=== PATIENT | female | born 1965 | race Caucasian/White ===

== ENCOUNTER 2019-12-05 16:33 | Inpatient (IN) | payer OTHER ==
[2019-12-05] MEDS ORDERED: Sodium Chloride 0.9% 10 ML Syringe FLUSH PRN (16:49)
[2019-12-05] MEDS ORDERED: Albuterol/Ipratropium 3.0-0.5 MG/3 ML Neb Soln NEB ONE ×2 (16:49→19:34)
[2019-12-05] MEDS ORDERED: predniSONE 20 MG Tab PO ONE (16:49)
[2019-12-05] MEDS ORDERED: Sodium Chloride 0.9% 2.5 ML Syringe FLUSH PRN (16:49)
[2019-12-05] MEDS ORDERED: Azithromycin 250 MG Tab PO ONE (16:49)
--- NOTE | 2019-12-05 17:17 | EDM.PDOC ---
ED HPI GENERAL MEDICAL PROBLEM - General Chief Complaint: Respiratory Problem Stated Complaint: TROUBLE BREATHING Time Seen by Provider: 12/05/19 16:49 Source of Information: Reports: Patient History Limitations: Reports: Respiratory Distress - History of Present Illness INITIAL COMMENTS - FREE TEXT/NARRATIVE: History of present illness: 54-year-old female presenting with difficulty breathing. She has been using her home O2 that she previously only needed 2 L at night, now she is using throughout the day. She reports that all started about 4 weeks ago went she was exposed to a decreasing chemical at work. She has a history of COPD and apparently at that time her COPD severely flared up to the point that she was admitted to the hospital. She was prescribed steroids for 5 days, however symptoms recurred when she went back to work and was exposed again. Therefore she was started on a longer course of steroids which she just completed yesterday, however she reports that again her breathing has now worsened. She has not yet been on antibiotics. She does report that 1 of her COPD medications was changed to an aerosol. She reports that she even brought her usual albuterol nebulizer to work but they refused to let her use it there. Has any chest pain. She does not have a portable oxygen machine and therefore she drove here without any oxygen, when she arrived at the front of the emergency department, she had a pulse ox in the 60s and appeared pale with cyanotic lips. Immediately back to the room and placed on oxygen and her oxygen did increase up into the 80s after being placed on a Ventimask. However she was able to speak very clearly and rapidly. Review of systems: As per history of present illness and below otherwise all systems reviewed and negative. Past medical history: As per history of present illness and as reviewed below otherwise noncontributory. COPD Surgical history: As per history of present illness and as reviewed below otherwise noncontributory. Social history: No reported history of drug or alcohol abuse. Daily smoker Family history: As per history of present illness and as reviewed below otherwise noncontributory. Physical exam: GEN: no acute distress, well appearing HEENT: Atraumatic, normocephalic, mucous membranes moist, Neck: supple, nontender, trachea midline. Lungs: Mild respiratory distress. Hypoxia, cyanotic lips, however still able to carry on a full conversation without mental status changes. Mild expiratory wheezes, decreased air movement Heart: Mildly tachycardic on arrival here, significantly improved after oxygen administration, now less than 100 Abdomen: Soft, nondistended, nontender. Back: nontender Extremities: Atraumatic. Neurovascularly intact. Neuro: Awake, alert, oriented. Neuro Exam nonfocal. Skin: warm, dry, pale cyanotic lips that resolved rapidly with oxygen administration Diagnostics: EKG performed today at 4:37 PM, sinus tachycardia, rate 104, PVCs, left atrial enlargement, right axis deviation, no STEMI. Therapeutics: [] MDM: Impression: [] Plan: [] Definitive disposition and diagnosis as appropriate pending reevaluation and review of above. Headache Pain Score (Numeric/FACES): 8 - Related Data Allergies Allergy/AdvReac Type Severity Reaction Status Date / Time acetaminophen [From Percocet] Allergy Cannot Verified 12/05/19 16:58 Remember cephalexin [From Keflex] Allergy Hives Verified 12/05/19 18:06 oxycodone [From Percocet] Allergy Cannot Verified 12/05/19 16:58 Remember Home Meds: Home Meds Albuterol [Ventolin HFA] 18 gm .XX DAILY 12/05/19 [History] Arformoterol [Brovana] 1 puff INH BID 12/05/19 [History] lisinopriL [Lisinopril] 10 mg PO DAILY 12/05/19 [History] Past Medical History HEENT 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: Other (See Below) Other HEENT History: sinus issues Cardiovascular 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: High Cholesterol, Hypertension Respiratory 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: Bronchitis, Recurrent Gastrointestinal 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: None Genitourinary 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: None [employer] 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: None Musculoskeletal 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: Back Pain, Chronic Neurological 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: None Psychiatric 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: None Endocrine/Metabolic 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: None Hematologic 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: None Immunologic 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: None Oncologic (Cancer) 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: None Dermatologic 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: None - Infectious Disease History Infectious Disease 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: Chicken Pox - Past Surgical History Female Surgical 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: Tubal Ligation Musculoskeletal Surgical 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: Other (See Below) Social & Family History - Family History Family Medical History: Noncontributory ED ROS GENERAL - Review of Systems Review Of Systems: See Below (see HPI) ED EXAM, GENERAL - Physical Exam Exam: See Below (See dictation) Course - Vital Signs Text/Narrative:: Recurrent dyspnea initially brought on by exposure to chemical. Hypoxic on arrival here. Failed outpatient therapy with nebulizers, steroids increased home O2 administration. Will add azithromycin and admit. Last Recorded V/S: Last Vital Signs Temp 98.4 F 12/05/19 16:54 Pulse 99 12/05/19 18:00 Resp 24 H 12/05/19 18:00 BP 143/82 H 12/05/19 18:00 Pulse Ox 91 L 12/05/19 18:00 - Orders/Labs/Meds Orders: Active Orders 24 hr Category Date Time Status Patient Status [ADT] Routine ADT 12/05/19 18:36 Active EKG 12 Lead [EKG Documentation Completion] [RC] STAT Care 12/05/19 17:28 Active CORONAVIRUS COVID-19 PCR PHL Stat Lab 12/05/19 16:49 Ordered Levofloxacin/Dextrose 5%-Water [Levaquin in D5W 750 MG/ Med 12/05/19 18:11 Active 150 ML] 750 mg Premix Bag 1 bag IV ONETIME Sodium Chloride 0.9% [Saline Flush] Med 12/05/19 16:49 Active 10 ml FLUSH ASDIRECTED PRN Sodium Chloride 0.9% [Saline Flush] Med 12/05/19 16:49 Active 2.5 ml FLUSH ASDIRECTED PRN Saline Lock Insert [OM.PC] Stat Oth 12/05/19 16:49 Ordered Medication Orders Levofloxacin/Dextrose 750 mg/ (Premix) 150 mls @ 100 mls/hr IV ONETIME ONE Stop: 12/05/19 19:40 Sodium Chloride (Saline Flush) 10 ml FLUSH ASDIRECTED PRN PRN Reason: Keep Vein Open Last Admin: 12/05/19 17:06 Dose: 10 ml Sodium Chloride (Saline Flush) 2.5 ml FLUSH ASDIRECTED PRN PRN Reason: Keep Vein Open Last Admin: 12/05/19 17:06 Dose: 2.5 ml Labs: Laboratory Tests 12/05/19 12/05/19 12/05/19 Range/Units 16:45 16:45 16:45 WBC 14.75 H (4.0-11.0) K/uL RBC 4.90 (4.30-5.90) M/uL Hgb 15.3 (12.0-16.0) g/dL Hct 50.2 H (36.0-46.0) % MCV 102.4 H (80.0-98.0) fL MCH 31.2 (27.0-32.0) pg MCHC 30.5 L (31.0-37.0) g/dL RDW Std Deviation 52.9 (28.0-62.0) fl RDW Coeff of Vera 14 (11.0-15.0) % Plt Count 214 (150-400) K/uL MPV 10.40 (7.40-12.00) fL Neut % (Auto) 84.5 H (48.0-80.0) % Lymph % (Auto) 7.4 L (16.0-40.0) % Rush % (Auto) 7.9 (0.0-15.0) % Eos % (Auto) 0.1 (0.0-7.0) % Baso % (Auto) 0.1 (0.0-1.5) % Neut # (Auto) 12.5 H (1.4-5.7) K/uL Lymph # (Auto) 1.1 (0.6-2.4) K/uL Rush # (Auto) 1.2 H (0.0-0.8) K/uL Eos # (Auto) 0.0 (0.0-0.7) K/uL Baso # (Auto) 0.0 (0.0-0.1) K/uL Nucleated RBC % 0.0 /100WBC Nucleated RBCs # 0 K/uL Sodium 138 (136-145) mmol/L Potassium 4.4 (3.5-5.1) mmol/L Chloride 96 L (98-107) mmol/L Carbon Dioxide 40.8 H (21.0-32.0) mmol/L BUN 8 (7.0-18.0) mg/dL Creatinine 0.5 L (0.6-1.0) mg/dL Est Cr Clr Drug Dosing 123.21 mL/min Estimated GFR (MDRD) > 60.0 ml/min Glucose 126 H (74-106) mg/dL Calcium 8.6 (8.5-10.1) mg/dL Total Bilirubin 0.7 (0.2-1.0) mg/dL AST 17 (15-37) IU/L ALT 33 (14-63) IU/L Alkaline Phosphatase 106 (46-116) U/L Troponin I < 0.050 (0.000-0.056) ng/mL B-Natriuretic Peptide 61 (<100) PG/ML Total Protein 6.6 (6.4-8.2) g/dL Albumin 3.2 L (3.4-5.0) g/dL Globulin 3.4 (2.6-4.0) g/dL Albumin/Globulin Ratio 0.9 (0.9-1.6) Meds: Medications Generic Name Dose Route Start Last Admin Trade Name Freq PRN Reason Stop Dose Admin Levofloxacin/Dextrose 750 mg/ 150 mls @ 100 mls/hr 12/05/19 18:11 Premix IV 12/05/19 19:40 ONETIME ONE Sodium Chloride 10 ml 12/05/19 16:49 12/05/19 17:06 Saline Flush FLUSH 10 ml ASDIRECTED PRN Administration Keep Vein Open Sodium Chloride 2.5 ml 12/05/19 16:49 12/05/19 17:06 Saline Flush FLUSH 2.5 ml ASDIRECTED PRN Administration Keep Vein Open Discontinued Medications Generic Name Dose Route Start Last Admin Trade Name Freq PRN Reason Stop Dose Admin Albuterol/Ipratropium 3 ml 12/05/19 16:49 12/05/19 16:59 Duoneb 3.0-0.5 Mg/3 Ml NEB 12/05/19 16:50 3 ml ONETIME ONE Administration Azithromycin 500 mg 12/05/19 16:49 12/05/19 17:00 Zithromax PO 12/05/19 16:50 500 mg ONETIME ONE Administration Ceftriaxone Sodium/Dextrose 2 50 mls @ 100 mls/hr 12/05/19 17:49 12/05/19 18: 07 gm/ Premix IV 12/05/19 18:18 Not Given ONETIME ONE Prednisone 50 mg 12/05/19 16:49 12/05/19 17:01 Prednisone PO 12/05/19 16:50 50 mg ONETIME ONE Administration - Re-Assessments/Exams Free Text/Narrative Re-Assessment/Exam: 12/05/19 18:09 The patient is feeling better. Her oxygen saturations are much improved. Discussed x-ray findings of pneumonia. Rocephin was ordered. I discussed this with the patient and when I asked her directly, she reported no medication or antibiotic allergies. However several minutes later when we were again discussing the antibiotic treatment for the pneumonia she then reported she had a Keflex allergy which was hives and therefore the Rocephin was canceled. She also reported at that time a Percocet allergy and another allergy that she could not recall. We will give Levaquin. 12/05/19 18:[address] Palafox for admission. She agrees. She requests to place the patient under inpatient admission under telemetry. 12/05/19 18:54 The patient stopped to me, requesting to eat something as she has not eaten all day. Diet will be attempted to be obtained from cafeteria Departure - Departure Time of Disposition: 18:35 Disposition: Admitted As Inpatient 68 Clinical Impression: COPD exacerbation, Hypoxia RLL pneumonia Qualifiers: Pneumonia type: due to unspecified organism Qualified Code(s): J18.9 - Pneumonia, unspecified organism - Discharge Information Referrals: Sanjuanita Vasquez DO [Primary Care Provider] - Forms: ED Department Discharge Sepsis Event Note (ED) - Evaluation Sepsis Screening Result: No Definite Risk - Focused Exam Vital Signs: Vital Signs Temp Pulse Resp BP Pulse Ox 12/05/19 18:00 99 24 H 143/82 H 91 L 12/05/19 16:54 98.4 F 103 H 26 H 169/150 H 59 L - My Orders Last 24 Hours: My Active Orders 12/05/19 16:49 CORONAVIRUS COVID-19 PCR PHL Stat Sodium Chloride 0.9% [Saline Flush] 10 ml FLUSH ASDIRECTED PRN Sodium Chloride 0.9% [Saline Flush] 2.5 ml FLUSH ASDIRECTED PRN Saline Lock Insert [OM.PC] Stat 12/05/19 17:28 EKG 12 Lead [EKG Documentation Completion] [RC] STAT 12/05/19 18:11 Levofloxacin/Dextrose 5%-Water [Levaquin in D5W 750 MG/150 ML] 750 mg Premix Bag 1 bag IV ONETIME 12/05/19 18:36 Patient Status [ADT] Routine - Assessment/Plan Last 24 Hours: My Active Orders 12/05/19 16:49 CORONAVIRUS COVID-19 PCR PHL Stat Sodium Chloride 0.9% [Saline Flush] 10 ml FLUSH ASDIRECTED PRN Sodium Chloride 0.9% [Saline Flush] 2.5 ml FLUSH ASDIRECTED PRN Saline Lock Insert [OM.PC] Stat 12/05/19 17:28 EKG 12 Lead [EKG Documentation Completion] [RC] STAT 12/05/19 18:11 Levofloxacin/Dextrose 5%-Water [Levaquin in D5W 750 MG/150 ML] 750 mg Premix Bag 1 bag IV ONETIME 12/05/19 18:36 Patient Status [ADT] Routine
[2019-12-05 17:31] LABS: BLOOD UREA NITROGEN,BUN 8 mg/dL (7.0-18.0); CARBON DIOXIDE,CO2 40.8 mmol/L (21.0-32.0); CHLORIDE,CL 96 mmol/L (98-107); GLUCOSE RANDOM 126 mg/dL (74-106); POTASSIUM,K 4.4 mmol/L (3.5-5.1); SODIUM,NA 138 mmol/L (136-145)
--- NOTE | 2019-12-05 17:33 | CR ---
Chest: 2 views of the chest were obtained. Comparison: No previous chest x-ray. Slight parenchymal density is seen posteriorly on the lateral view most likely representing within the right lung base. This may represent a small pneumonia. Lung markings are also mildly increased somewhat accentuated from body habitus but difficult to exclude mild bronchitis. Heart size and mediastinum are normal. Bony structures show slight degenerative change within the spine. Impression: 1. Possible small pneumonia within the right lung base. 2. Questionable perihilar bronchitis. Diagnostic code #3 Study was dictated in MDT
[2019-12-05] MEDS ORDERED: cefTRIAXone 2 GM in Premix Bag 1 BAG IV ONE (17:49)
[2019-12-05] MEDS ORDERED: Levofloxacin/Dextrose 5%-Water 750 MG in Premix Bag 1 BAG IV ONE (18:11)
--- NOTE | 2019-12-05 20:50 | PCM.HP.2 ---
<Kamilah Giles - Last Filed: 12/06/19 11:06> H&P History of Present Illness - General Date of Service: 12/05/19 Admit Problem/Dx: Admission Diagnosis/Problem Admission Diagnosis/Problem COPD, Severe chronic obstructive pulmonary disease Source of Information: Patient History Limitations: Reports: No Limitations - History of Present Illness Initial Comments - Free Text/Narative: 54 y.o female w. PMH Of sever COPD requiring 2 Liters at night, 2 PPD tobacco abuse >15 years, obesity; presented yesterday w. increasing SOB; pt. 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 Mentions for the past couple of days of having to use her at-night supplemental o2 but was becoming increasingly fatigued. ED : presented to ED w. increasing fatigue, cyanotic lips and pale pallor; requiring 9L o2, CXR: small RLL CAP, no fevers and or chills. Duo nebs, azithromycin and Levaquin started. PO prednisone 50 mg also given., Aditted for COPD Bedside: less respiratory distress now on 9 liters; still tight BS. No sputum production Headache Pain Score (Numeric/FACES): 8 - Related Data Allergies/Adverse Reactions: Allergies Allergy/AdvReac Type Severity Reaction Status Date / Time cephalexin [From Keflex] Allergy Hives Verified 12/05/19 20:38 diclofenac Allergy Cannot Verified 12/06/19 01:52 Remember oxycodone [From Percocet] Allergy Cannot Verified 12/05/19 20:38 Remember Home Medications: Home Meds Albuterol Sulfate 2.5 mg IH Q4H PRN 12/05/19 [History] Albuterol [Ventolin HFA] 18 gm .XX DAILY 12/05/19 [History] Aspirin 81 mg PO DAILY 12/05/19 [History] Cholecalciferol (Vitamin D3) [Vitamin D3] 50 mcg PO DAILY 12/05/19 [History] Multivitamin [Multi-Vitamin Daily] 1 tab PO DAILY 12/05/19 [History] Vitamin E (Dl,Tocopheryl Acet) [Vitamin E] 180 mg PO DAILY 12/05/19 [History] lisinopriL [Lisinopril] 10 mg PO DAILY 12/05/19 [History] Fluticasone/Umeclidin/Vilanter [Trelegy Ellipta 100-62.5-25 MCG] 1 puff INH ONETIME 30 Days #1 inhaler 12/11/19 [Rx] Nicotine [Habitrol] 21 mg TRDERM DAILY patch 12/11/19 [Rx] Omeprazole 20 mg PO BIDAC cap.cr 12/11/19 [Rx] predniSONE [Prednisone] 5 mg PO DAILY 14 Days #14 tablet 12/11/19 [Rx] predniSONE [Prednisone] 10 mg PO DAILY 12 Days #1 tab.ds.pk 12/11/19 [Rx] Past Medical History HEENT 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: Other (See Below) Other HEENT History: sinus issues Cardiovascular 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: High Cholesterol, Hypertension Respiratory 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: Bronchitis, Recurrent Gastrointestinal 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: None Genitourinary 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: None [employer] 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: None Musculoskeletal 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: Back Pain, Chronic Neurological 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: None Psychiatric 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: None Endocrine/Metabolic 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: None Hematologic 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: None Immunologic 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: None Oncologic (Cancer) 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: None Dermatologic 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: None - Infectious Disease History Infectious Disease 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: Chicken Pox - Past Surgical History Female Surgical 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: Tubal Ligation Musculoskeletal Surgical 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: Other (See Below) Social & Family History - Family History Family Medical History: Noncontributory - Tobacco Use Smoking Status *Q: Former Smoker Used Tobacco, but Quit: Yes Month/Year Tobacco Last Used: 11/2019 - Recreational Drug Use Recreational Drug Use: No H&P Review of Systems - Review of Systems: Review Of Systems: See Below General: Reports: No Symptoms Pulmonary: Reports: Shortness of Breath. Denies: Wheezing, Pleuritic Chest Pain, Cough, Sputum Cardiovascular: Reports: No Symptoms Gastrointestinal: Reports: No Symptoms Genitourinary: Reports: No Symptoms Musculoskeletal: Reports: No Symptoms Skin: Reports: No Symptoms Psychiatric: Reports: No Symptoms Neurological: Reports: No Symptoms Exam - Exam Exam: See Below - Vital Signs Vital Signs: Last Vital Signs Temp 98.4 F 12/05/19 16:54 Pulse 99 12/05/19 18:00 Resp 24 H 12/05/19 18:00 BP 143/82 H 12/05/19 18:00 Pulse Ox 91 L 12/05/19 18:00 Weight: 108.862 kg - Exam Quality Assessment: Supplemental Oxygen General: Alert, Oriented, Mild Distress HEENT: EOMI, Mucosa Moist & Rafael Hernandez Neck: Supple, Trachea Midline Lungs: Other (tight breath sounds; reduced I:E phase; minimal wheezing at end- expiratory phase ) GI/Abdominal Exam: Soft, Non-Tender Back Exam: Normal Inspection Extremities: Normal Inspection Neurological: Cranial Nerves Intact Neuro Extensive - Mental Status: Alert, Oriented x3 - Patient Data Lab Results Last 24 hrs: Laboratory Results - last 24 hr 12/05/19 12/05/19 12/05/19 Range/Units 16:45 16:45 16:45 WBC 14.75 H (4.0-11.0) K/uL RBC 4.90 (4.30-5.90) M/uL Hgb 15.3 (12.0-16.0) g/dL Hct 50.2 H (36.0-46.0) % MCV 102.4 H (80.0-98.0) fL MCH 31.2 (27.0-32.0) pg MCHC 30.5 L (31.0-37.0) g/dL RDW Std Deviation 52.9 (28.0-62.0) fl RDW Coeff of Vera 14 (11.0-15.0) % Plt Count 214 (150-400) K/uL MPV 10.40 (7.40-12.00) fL Neut % (Auto) 84.5 H (48.0-80.0) % Lymph % (Auto) 7.4 L (16.0-40.0) % Isabela % (Auto) 7.9 (0.0-15.0) % Eos % (Auto) 0.1 (0.0-7.0) % Baso % (Auto) 0.1 (0.0-1.5) % Neut # (Auto) 12.5 H (1.4-5.7) K/uL Lymph # (Auto) 1.1 (0.6-2.4) K/uL Isabela # (Auto) 1.2 H (0.0-0.8) K/uL Eos # (Auto) 0.0 (0.0-0.7) K/uL Baso # (Auto) 0.0 (0.0-0.1) K/uL Nucleated RBC % 0.0 /100WBC Nucleated RBCs # 0 K/uL Sodium 138 (136-145) mmol/L Potassium 4.4 (3.5-5.1) mmol/L Chloride 96 L (98-107) mmol/L Carbon Dioxide 40.8 H (21.0-32.0) mmol/L BUN 8 (7.0-18.0) mg/dL Creatinine 0.5 L (0.6-1.0) mg/dL Est Cr Clr Drug Dosing 123.21 mL/min Estimated GFR (MDRD) > 60.0 ml/min Glucose 126 H (74-106) mg/dL Calcium 8.6 (8.5-10.1) mg/dL Total Bilirubin 0.7 (0.2-1.0) mg/dL AST 17 (15-37) IU/L ALT 33 (14-63) IU/L Alkaline Phosphatase 106 (46-116) U/L Troponin I < 0.050 (0.000-0.056) ng/mL B-Natriuretic Peptide 61 (<100) PG/ML Total Protein 6.6 (6.4-8.2) g/dL Albumin 3.2 L (3.4-5.0) g/dL Globulin 3.4 (2.6-4.0) g/dL Albumin/Globulin Ratio 0.9 (0.9-1.6) Result Diagrams: 12/06/19 05:00 12/06/19 05:00 Sepsis Event Note - Evaluation Sepsis Screening Result: No Definite Risk - Focused Exam Vital Signs: Vital Signs Temp Pulse Resp BP Pulse Ox 12/05/19 18:00 99 24 H 143/82 H 91 L 12/05/19 16:54 98.4 F 103 H 26 H 169/150 H 59 L Date Exam was Performed: 12/06/19 Time Exam was Performed: 11:06 Problem List Initiated/Reviewed/Updated: Yes Orders Last 24hrs: Active Orders 24 hr Category Date Time Status Patient Status [ADT] Routine ADT 12/05/19 18:36 Active EKG 12 Lead [EKG Documentation Completion] [RC] STAT Care 12/05/19 17:28 Active RT Aerosol Therapy [RC] ASDIRECTED Care 12/05/19 19:35 Active Telemetry Monitoring [Cardiac Monitoring] [RC] . Care 12/05/19 19:34 Active DIRECTED [employer] Diet [DIET] Diet 12/06/19 Breakfast Active CBC WITH AUTO DIFF [HEME] AM Lab 12/06/19 05:11 Ordered COMPREHENSIVE METABOLIC PN,CMP [CHEM] AM Lab 12/06/19 05:11 Ordered CORONAVIRUS COVID-19 PCR PHL Stat Lab 12/05/19 16:49 Ordered GLYCOSYLATED HEMOGLOBIN,HGBA1C [CHEM] Stat Lab 12/05/19 19:36 Ordered Heparin Sodium Med 12/05/19 19:45 Active 5,000 units SUBCUT Q12H Nicotine [Habitrol] Med 12/05/19 19:45 Active 21 mg TRDERM DAILY Omeprazole Med 12/06/19 07:30 Active 20 mg PO BIDAC Sodium Chloride 0.9% [Saline Flush] Med 12/05/19 16:49 Active 10 ml FLUSH ASDIRECTED PRN Sodium Chloride 0.9% [Saline Flush] Med 12/05/19 16:49 Active 2.5 ml FLUSH ASDIRECTED PRN lisinopriL [Prinivil] Med 12/06/19 09:00 Active 10 mg PO DAILY Saline Lock Insert [OM.PC] Stat Oth 12/05/19 16:49 Ordered Medication Orders Heparin Sodium (Porcine) (Heparin Sodium) 5,000 units SUBCUT Q12H KOLE Lisinopril (Prinivil) 10 mg PO DAILY KOLE Nicotine (Habitrol) 21 mg TRDERM DAILY KOLE Omeprazole (Omeprazole) 20 mg PO BIDAC KOLE Sodium Chloride (Saline Flush) 10 ml FLUSH ASDIRECTED PRN PRN Reason: Keep Vein Open Last Admin: 12/05/19 17:06 Dose: 10 ml Sodium Chloride (Saline Flush) 2.5 ml FLUSH ASDIRECTED PRN PRN Reason: Keep Vein Open Last Admin: 12/05/19 17:06 Dose: 2.5 ml Assessment/Plan Comment:: Assessment: 1. Acute hypoxic respiratory failure secondary to COPD exacerbation 2. Leukocytosis in setting of RLL CAP 3. Macrocytosis 4. PMH: HTN, tobacco abuse, morbid obesity Plan Admit to inpatient. Full code. Up ad bob. DVT: heparin 5000 q12 hrs. GI: omeprazole 20 bid Telemetry. i/o's per routine. Diet: ADA 1. COPD exacerbation: maintain saturation above 88% w. supplemental O2 ; continue duo-nebs q4hrs; will reassess need in AM CXR: small RLL CAP; given dose of azithromycin and started on Levaquin in ED ; will continue tomorrow Levaquin alone Received /been on steroids x 3-weeks; received 50 mg PO prednisone in ED; will reassess need in AM Responding well to Duo nebs and Supplemental o2; if respiratory failure worsens; if needing increasing o2 ; will consider Bipap and CTA; Wells criiteria 1.5 (low risk) will reass if necessary. pt. is speaking in full sentences at bedside on supplemental o2. Nicotine patch for daily 1-2 PPD tobacco abuse Telemetry: Sinus tachycardia+ multiple Duo nebs treatments; COVID testing results pending 2. HTN: restart Lisinopril <JavyHooria - Last Filed: 12/13/19 20:11> H&P History of Present Illness - General Admit Problem/Dx: Admission Diagnosis/Problem Admission Diagnosis/Problem COPD, Severe chronic obstructive pulmonary disease Exam - Vital Signs Vital Signs: Last Vital Signs Temp 36.1 C 12/11/19 07:54 Pulse 89 12/11/19 07:54 Resp 18 12/11/19 07:54 BP 133/65 12/11/19 07:54 Pulse Ox 91 L 12/11/19 07:54 - Patient Data Result Diagrams: 12/11/19 06:35 12/11/19 06:35 Sepsis Event Note - Focused Exam Date Exam was Performed: 12/13/19 Time Exam was Performed: 20:11 - Problem List (1) Acute on chronic respiratory failure with hypoxia and hypercapnia SNOMED Code(s): 10710381790436 ICD Code: J96.21 - ACUTE AND CHRONIC RESPIRATORY FAILURE WITH HYPOXIA; J96.22 - ACUTE AND CHRONIC RESPIRATORY FAILURE WITH HYPERCAPNIA Status: Acute (2) COPD exacerbation SNOMED Code(s): 765492943 ICD Code: J44.1 - CHRONIC OBSTRUCTIVE PULMONARY DISEASE W (ACUTE) EXACERBATION Status: Acute (3) Pneumonia of both lower lobes SNOMED Code(s): 770901117, 609090629 ICD Code: J18.9 - PNEUMONIA, UNSPECIFIED ORGANISM Status: Acute (4) Obesity SNOMED Code(s): 755299628, 919739796 ICD Code: E66.9 - OBESITY, UNSPECIFIED Status: Chronic (5) Tobacco use SNOMED Code(s): 468356011 ICD Code: Z72.0 - TOBACCO USE Status: Chronic Assessment/Plan Comment:: I performed a history and physical exam of the patient and discussed management with resident. I have reviewed the residents note and agree with documented findings and plan unless otherwise specified in my note.
[2019-12-05] MEDS: Nicotine 21 MG/24 Hr Patch TRDERM SCH (20:57)
[2019-12-05] MEDS: Heparin Sodium 5,000 Units/ML Vial SUBCUT SCH (20:58)
[2019-12-06] MEDS: Omeprazole 20 MG Cap.CR PO SCH ×2 (08:00→16:57)
[2019-12-06 08:07] LABS: BLOOD UREA NITROGEN,BUN 9 mg/dL (7.0-18.0); CARBON DIOXIDE,CO2 43.2 mmol/L (21.0-32.0); CHLORIDE,CL 98 mmol/L (98-107); GLUCOSE RANDOM 119 mg/dL (74-106); POTASSIUM,K 4.4 mmol/L (3.5-5.1); SODIUM,NA 139 mmol/L (136-145)
[2019-12-06 08:26] LABS: HEMOGLOBIN A1C 5.7 % (4.5-6.2)
[2019-12-06] MEDS: Heparin Sodium 5,000 Units/ML Vial SUBCUT SCH ×2 (08:41→19:31)
[2019-12-06] MEDS: Nicotine 21 MG/24 Hr Patch TRDERM SCH (08:43)
[2019-12-06] MEDS ORDERED: Levofloxacin/Dextrose 5%-Water 500 MG in Premix Bag 1 BAG IV SCH (09:00)
[2019-12-06] MEDS ORDERED: LISINOPRIL 10 MG PO SCH (09:00)
[2019-12-06] MEDS: LISINOPRIL 10 MG PO SCH (09:39)
[2019-12-06] MEDS: methylPREDNISolone Sodium Succinate 40 MG/1 ML SDV IVPUSH SCH ×3 (09:41→21:35)
--- NOTE | 2019-12-06 11:27 | PCM.PN ---
<Kamilah Giles - Last Filed: 12/06/19 11:15> - General Info Date of Service: 12/06/19 Subjective Update: C.o of fatigue; but improving since yesterday night Functional Status: Denies: Pain Controlled - Review of Systems General: Reports: Fatigue. Denies: Fever, Weakness, Chills HEENT: Reports: No Symptoms Pulmonary: Reports: Shortness of Breath. Denies: Cough, Sputum, Wheezing Cardiovascular: Reports: No Symptoms Gastrointestinal: Reports: No Symptoms Genitourinary: Reports: No Symptoms Musculoskeletal: Reports: No Symptoms Skin: Denies: No Symptoms, Cyanosis Neurological: Reports: No Symptoms - Patient Data Vitals - Most Recent: Last Vital Signs Temp 98.6 F 12/06/19 07:20 Pulse 91 12/06/19 07:20 Resp 18 12/06/19 07:20 BP 140/69 12/06/19 07:20 Pulse Ox 91 L 12/06/19 07:20 Weight - Most Recent: 108.862 kg I&O - Last 24 Hours: Intake & Output 12/05/19 12/06/19 12/06/19 22:59 06:59 14:59 Output Total 600 Balance -600 Lab Results Last 24 Hours: Laboratory Results - last 24 hr 12/05/19 12/05/19 12/05/19 Range/Units 16:45 16:45 16:45 WBC 14.75 H (4.0-11.0) K/uL RBC 4.90 (4.30-5.90) M/uL Hgb 15.3 (12.0-16.0) g/dL Hct 50.2 H (36.0-46.0) % MCV 102.4 H (80.0-98.0) fL MCH 31.2 (27.0-32.0) pg MCHC 30.5 L (31.0-37.0) g/dL RDW Std Deviation 52.9 (28.0-62.0) fl RDW Coeff of Vera 14 (11.0-15.0) % Plt Count 214 (150-400) K/uL MPV 10.40 (7.40-12.00) fL Neut % (Auto) 84.5 H (48.0-80.0) % Lymph % (Auto) 7.4 L (16.0-40.0) % [place] % (Auto) 7.9 (0.0-15.0) % Eos % (Auto) 0.1 (0.0-7.0) % Baso % (Auto) 0.1 (0.0-1.5) % Neut # (Auto) 12.5 H (1.4-5.7) K/uL Lymph # (Auto) 1.1 (0.6-2.4) K/uL [place] # (Auto) 1.2 H (0.0-0.8) K/uL Eos # (Auto) 0.0 (0.0-0.7) K/uL Baso # (Auto) 0.0 (0.0-0.1) K/uL Nucleated RBC % 0.0 /100WBC Nucleated RBCs # 0 K/uL Sodium 138 (136-145) mmol/L Potassium 4.4 (3.5-5.1) mmol/L Chloride 96 L (98-107) mmol/L Carbon Dioxide 40.8 H (21.0-32.0) mmol/L BUN 8 (7.0-18.0) mg/dL Creatinine 0.5 L (0.6-1.0) mg/dL Est Cr Clr Drug Dosing 123.21 mL/min Estimated GFR (MDRD) > 60.0 ml/min Glucose 126 H (74-106) mg/dL Hemoglobin A1c (4.5-6.2) % Calcium 8.6 (8.5-10.1) mg/dL Total Bilirubin 0.7 (0.2-1.0) mg/dL AST 17 (15-37) IU/L ALT 33 (14-63) IU/L Alkaline Phosphatase 106 (46-116) U/L Troponin I < 0.050 (0.000-0.056) ng/mL B-Natriuretic Peptide 61 (<100) PG/ML Total Protein 6.6 (6.4-8.2) g/dL Albumin 3.2 L (3.4-5.0) g/dL Globulin 3.4 (2.6-4.0) g/dL Albumin/Globulin Ratio 0.9 (0.9-1.6) SARS-CoV-2 RNA (RT-PCR) (NEGATIVE) 12/05/19 12/06/1912/05/20 Range/Units 21:10 05:00 05:00 WBC 11.85 H (4.0-11.0) K/uL RBC 4.76 (4.30-5.90) M/uL Hgb 14.6 (12.0-16.0) g/dL Hct 48.2 H (36.0-46.0) % MCV 101.3 H (80.0-98.0) fL MCH 30.7 (27.0-32.0) pg MCHC 30.3 L (31.0-37.0) g/dL RDW Std Deviation 51.5 (28.0-62.0) fl RDW Coeff of Vera 14 (11.0-15.0) % Plt Count 199 (150-400) K/uL MPV 10.20 (7.40-12.00) fL Neut % (Auto) 78.3 (48.0-80.0) % Lymph % (Auto) 12.0 L (16.0-40.0) % [place] % (Auto) 9.3 (0.0-15.0) % Eos % (Auto) 0.3 (0.0-7.0) % Baso % (Auto) 0.1 (0.0-1.5) % Neut # (Auto) 9.3 H (1.4-5.7) K/uL Lymph # (Auto) 1.4 (0.6-2.4) K/uL [place] # (Auto) 1.1 H (0.0-0.8) K/uL Eos # (Auto) 0.0 (0.0-0.7) K/uL Baso # (Auto) 0.0 (0.0-0.1) K/uL Nucleated RBC % 0.0 /100WBC Nucleated RBCs # 0 K/uL Sodium 139 (136-145) mmol/L Potassium 4.4 (3.5-5.1) mmol/L Chloride 98 (98-107) mmol/L Carbon Dioxide 43.2 H (21.0-32.0) mmol/L BUN 9 (7.0-18.0) mg/dL Creatinine 0.6 (0.6-1.0) mg/dL Est Cr Clr Drug Dosing 102.68 mL/min Estimated GFR (MDRD) > 60.0 ml/min Glucose 119 H (74-106) mg/dL Hemoglobin A1c (4.5-6.2) % Calcium 8.3 L (8.5-10.1) mg/dL Total Bilirubin 0.3 (0.2-1.0) mg/dL AST 15 (15-37) IU/L ALT 25 (14-63) IU/L Alkaline Phosphatase 98 (46-116) U/L Troponin I (0.000-0.056) ng/mL B-Natriuretic Peptide (<100) PG/ML Total Protein 6.2 L (6.4-8.2) g/dL Albumin 2.9 L (3.4-5.0) g/dL Globulin 3.3 (2.6-4.0) g/dL Albumin/Globulin Ratio 0.9 (0.9-1.6) SARS-CoV-2 RNA (RT-PCR) NEGATIVE (NEGATIVE) 12/06/19 Range/Units 05:00 WBC (4.0-11.0) K/uL RBC (4.30-5.90) M/uL Hgb (12.0-16.0) g/dL Hct (36.0-46.0) % MCV (80.0-98.0) fL MCH (27.0-32.0) pg MCHC (31.0-37.0) g/dL RDW Std Deviation (28.0-62.0) fl RDW Coeff of Vera (11.0-15.0) % Plt Count (150-400) K/uL MPV (7.40-12.00) fL Neut % (Auto) (48.0-80.0) % Lymph % (Auto) (16.0-40.0) % [place] % (Auto) (0.0-15.0) % Eos % (Auto) (0.0-7.0) % Baso % (Auto) (0.0-1.5) % Neut # (Auto) (1.4-5.7) K/uL Lymph # (Auto) (0.6-2.4) K/uL [place] # (Auto) (0.0-0.8) K/uL Eos # (Auto) (0.0-0.7) K/uL Baso # (Auto) (0.0-0.1) K/uL Nucleated RBC % /100WBC Nucleated RBCs # K/uL Sodium (136-145) mmol/L Potassium (3.5-5.1) mmol/L Chloride (98-107) mmol/L Carbon Dioxide (21.0-32.0) mmol/L BUN (7.0-18.0) mg/dL Creatinine (0.6-1.0) mg/dL Est Cr Clr Drug Dosing mL/min Estimated GFR (MDRD) ml/min Glucose (74-106) mg/dL Hemoglobin A1c 5.7 (4.5-6.2) % Calcium (8.5-10.1) mg/dL Total Bilirubin (0.2-1.0) mg/dL AST (15-37) IU/L ALT (14-63) IU/L Alkaline Phosphatase (46-116) U/L Troponin I (0.000-0.056) ng/mL B-Natriuretic Peptide (<100) PG/ML Total Protein (6.4-8.2) g/dL Albumin (3.4-5.0) g/dL Globulin (2.6-4.0) g/dL Albumin/Globulin Ratio (0.9-1.6) SARS-CoV-2 RNA (RT-PCR) (NEGATIVE) Med Orders - Current: Current Medications Heparin Sodium (Porcine) (Heparin Sodium) 5,000 units SUBCUT Q12H [facility] Last Admin: 12/06/19 08:41 Dose: 5,000 units Documented by: Levofloxacin/Dextrose 750 mg/ (Premix) 150 mls @ 100 mls/hr IV Q24H [facility] Methylprednisolone Sodium Succinate (Solu-Medrol) 40 mg IVPUSH Q6H [facility] Last Admin: 12/06/19 09:41 Dose: 40 mg Documented by: Nicotine (Habitrol) 21 mg TRDERM DAILY [facility] Last Admin: 12/06/19 08:43 Dose: 21 mg Documented by: Omeprazole (Omeprazole) 20 mg PO BIDAC [facility] Last Admin: 12/06/19 08:00 Dose: Not Given Documented by: Lisinopril 10 Mg Tab - Patient Own Medication 1 each PO DAILY [facility] Last Admin: 12/06/19 09:39 Dose: 1 each Documented by: Sodium Chloride (Saline Flush) 10 ml FLUSH ASDIRECTED PRN PRN Reason: Keep Vein Open Last Admin: 12/05/19 17:06 Dose: 10 ml Documented by: Sodium Chloride (Saline Flush) 2.5 ml FLUSH ASDIRECTED PRN PRN Reason: Keep Vein Open Last Admin: 12/05/19 17:06 Dose: 2.5 ml Documented by: Discontinued Medications Albuterol/Ipratropium (Duoneb 3.0-0.5 Mg/3 Ml) 3 ml NEB ONETIME ONE Stop: 12/05/19 16:50 Last Admin: 12/05/19 16:59 Dose: 3 ml Documented by: Albuterol/Ipratropium (Duoneb 3.0-0.5 Mg/3 Ml) 3 ml NEB Q4HRRT ONE Stop: 12/05/19 19:35 Last Admin: 12/05/19 21:04 Dose: 3 ml Documented by: Azithromycin (Zithromax) 500 mg PO ONETIME ONE Stop: 12/05/19 16:50 Last Admin: 12/05/19 17:00 Dose: 500 mg Documented by: Ceftriaxone Sodium/Dextrose 2 (gm/ Premix) 50 mls @ 100 mls/hr IV ONETIME ONE Stop: 12/05/19 18:18 Last Admin: 12/05/19 18:07 Dose: Not Given Documented by: Levofloxacin/Dextrose 750 mg/ (Premix) 150 mls @ 100 mls/hr IV ONETIME ONE Stop: 12/05/19 19:40 Last Admin: 12/05/19 19:10 Dose: 100 mls/hr Documented by: Levofloxacin/Dextrose 500 mg/ (Premix) 100 mls @ 100 mls/hr IV ONETIME [facility] Lisinopril (Prinivil) 10 mg PO DAILY [facility] Last Admin: 12/06/19 09:39 Dose: Not Given Documented by: Prednisone (Prednisone) 50 mg PO ONETIME ONE Stop: 12/05/19 16:50 Last Admin: 12/05/19 17:01 Dose: 50 mg Documented by: - Exam Quality Assessment: Supplemental Oxygen General: Alert, Oriented HEENT: EOMI, Mucous Membr. Moist/[place] Neck: Supple Lungs: Other (tight BS; miniamal wheezing ; better movement ) Cardiovascular: Regular Rate, Regular Rhythm GI/Abdominal Exam: Soft, Non-Tender Extremities: Normal Inspection Skin: Warm, Dry Wound/Incisions: Healing Well Neurological: No New Focal Deficit Psy/Mental Status: Alert Sepsis Event Note - Evaluation Sepsis Screening Result: No Definite Risk - Focused Exam Vital Signs: Vital Signs Temp Pulse Resp BP Pulse Ox 12/06/19 07:20 98.6 F 91 18 140/69 91 L 12/06/19 02:34 98 F 95 18 118/68 91 L 12/06/19 00:00 98.5 F 99 20 125/60 91 L Date Exam was Performed: 12/06/19 Time Exam was Performed: 11:15 - Problem List Review Problem List Initiated/Reviewed/Updated: Yes - My Orders Last 24 Hours: My Active Orders 12/05/19 19:34 Telemetry Monitoring [Cardiac Monitoring] [RC] . DIRECTED 12/05/19 19:35 RT Aerosol Therapy [RC] ASDIRECTED 12/05/19 19:45 Heparin Sodium 5,000 units SUBCUT Q12H Nicotine [Habitrol] 21 mg TRDERM DAILY 12/06/19 Breakfast Regular Diet [DIET] 12/06/19 07:30 Omeprazole 20 mg PO BIDAC 12/06/19 09:00 Patient's Own Medication [Ptom] 1 each PO DAILY methylPREDNISolone Sod Succ [Solu-MEDROL] 40 mg IVPUSH Q6H 12/06/19 18:00 Levofloxacin/Dextrose 5%-Water [Levaquin in D5W 750 MG/150 ML] 750 mg Premix Bag 1 bag IV Q24H - Plan Plan:: Assessment: 1. Acute hypoxic respiratory failure secondary to COPD exacerbation 2. Leukocytosis in setting of RLL CAP 3. Macrocytosis 4. PMH: HTN, tobacco abuse, morbid obesity Plan Admit to inpatient. Full code. Up ad bob. DVT: heparin 5000 q12 hrs. GI: omeprazole 20 bid Telemetry. i/o's per routine. Diet: ADA 1. COPD exacerbation: maintain saturation above 88% w. supplemental O2 ; continue duo-nebs q4hrs; will reassess need throughout; will consider brief BiPap application this PM CXR: small RLL CAP: On Levaquin IV methylprednisolone since pt. is still requiring supplemental o2 Nicotine patch for daily 1-2 PPD tobacco abuse Telemetry: Sinus tachycardia+ multiple Duo nebs treatments; COVID testing: negative 2. HTN: restart Lisinopril <Mickey Palafox - Last Filed: 12/13/19 20:09> - Patient Data Vitals - Most Recent: Last Vital Signs Temp 36.1 C 12/11/19 07:54 Pulse 89 12/11/19 07:54 Resp 18 12/11/19 07:54 BP 133/65 12/11/19 07:54 Pulse Ox 91 L 12/11/19 07:54 Med Orders - Current: Current Medications Discontinued Medications Albuterol/Ipratropium (Duoneb 3.0-0.5 Mg/3 Ml) 3 ml NEB ONETIME ONE Stop: 12/05/19 16:50 Last Admin: 12/05/19 16:59 Dose: 3 ml Documented by: Albuterol/Ipratropium (Duoneb 3.0-0.5 Mg/3 Ml) 3 ml NEB Q4HRRT ONE Stop: 12/05/19 19:35 Last Admin: 12/05/19 21:04 Dose: 3 ml Documented by: Albuterol/Ipratropium (Duoneb 3.0-0.5 Mg/3 Ml) 3 ml NEB Q4HRRT [facility] Last Admin: 12/11/19 09:34 Dose: 3 ml Documented by: Aspirin (Aspirin) 81 mg PO DAILY [facility] Last Admin: 12/11/19 08:42 Dose: Not Given Documented by: Aspirin (Aspirin) 81 mg PO DAILY [facility] Last Admin: 12/11/19 08:24 Dose: 81 mg Documented by: Azithromycin (Zithromax) 500 mg PO ONETIME ONE Stop: 12/05/19 16:50 Last Admin: 12/05/19 17:00 Dose: 500 mg Documented by: Cholecalciferol (Vitamin D3) 50 mcg PO DAILY [facility] Last Admin: 12/11/19 08:30 Dose: Not Given Documented by: Diphtheria/Tetanus/Acell Pertussis (Boostrix) 0.5 ml IM .ONCE ONE Stop: 12/09/19 13:03 Heparin Sodium (Porcine) (Heparin Sodium) 5,000 units SUBCUT Q12H [facility] Last Admin: 12/11/19 07:02 Dose: 5,000 units Documented by: Ceftriaxone Sodium/Dextrose 2 (gm/ Premix) 50 mls @ 100 mls/hr IV ONETIME ONE Stop: 12/05/19 18:18 Last Admin: 12/05/19 18:07 Dose: Not Given Documented by: Levofloxacin/Dextrose 750 mg/ (Premix) 150 mls @ 100 mls/hr IV ONETIME ONE Stop: 12/05/19 19:40 Last Admin: 12/05/19 19:10 Dose: 100 mls/hr Documented by: Levofloxacin/Dextrose 500 mg/ (Premix) 100 mls @ 100 mls/hr IV ONETIME [facility] Levofloxacin/Dextrose 750 mg/ (Premix) 150 mls @ 100 mls/hr IV Q24H [facility] Last Admin: 12/10/19 18:28 Dose: 100 mls/hr Documented by: Sodium Chloride (Normal Saline) 1,000 mls @ 100 mls/hr IV Q10H [facility] Last Admin: 12/08/19 09:35 Dose: Not Given Documented by: Sodium Chloride (Normal Saline) 1,000 mls @ 100 mls/hr IV ASDIRECTED [facility] Last Admin: 12/09/19 00:26 Dose: 100 mls/hr Documented by: Piperacillin Sod/Tazobactam (Sod 4.5 gm/ Sodium Chloride) 100 mls @ 100 mls/hr IV Q6H [facility] Last Admin: 12/09/19 10:12 Dose: 100 mls/hr Documented by: Iopamidol (Isovue-370 (76%)) 75 ml IVPUSH ONETIME STA Stop: 12/07/19 17:06 Last Admin: 12/07/19 17:06 Dose: 75 ml Documented by: Lisinopril (Prinivil) 10 mg PO DAILY [facility] Last Admin: 12/06/19 09:39 Dose: Not Given Documented by: Methylprednisolone Sodium Succinate (Solu-Medrol) 40 mg IVPUSH Q6H [facility] Last Admin: 12/08/19 08:30 Dose: 40 mg Documented by: Methylprednisolone Sodium Succinate (Solu-Medrol) 40 mg IVPUSH Q8H [facility] Last Admin: 12/09/19 09:06 Dose: 40 mg Documented by: Methylprednisolone Sodium Succinate (Solu-Medrol) 40 mg IVPUSH Q12H [facility] Last Admin: 12/10/19 10:08 Dose: 40 mg Documented by: Miscellaneous Information (Remove Patch) 1 ea TRDERM BEDTIME [facility] Last Admin: 12/10/19 21:08 Dose: Not Given Documented by: Multivitamins/Minerals/Vitamin C (Tab-A-Cheo) 1 tab PO DAILY [facility] Last Admin: 12/11/19 08:29 Dose: Not Given Documented by: Nicotine (Habitrol) 21 mg TRDERM DAILY [facility] Last Admin: 12/11/19 08:27 Dose: Not Given Documented by: Omeprazole (Omeprazole) 20 mg PO BIDAC [facility] Last Admin: 12/11/19 07:02 Dose: 20 mg Documented by: Lisinopril 10 Mg Tab - Patient Own Medication 1 each PO DAILY [facility] Last Admin: 12/11/19 08:26 Dose: 1 each Documented by: [Vitamin A] 2,400 (Mcg) 1 each PO DAILY [facility] Last Admin: 12/11/19 08:27 Dose: Not Given Documented by: [Vitamin E] 180 Mg 1 each PO DAILY [facility] Last Admin: 12/11/19 08:27 Dose: Not Given Documented by: Pneumococcal Polyvalent Vaccine (Pneumovax 23) 0.5 ml SUBCUT .ONCE ONE Stop: 12/09/19 13:02 Prednisone (Prednisone) 50 mg PO ONETIME ONE Stop: 12/05/19 16:50 Last Admin: 12/05/19 17:01 Dose: 50 mg Documented by: Prednisone (Prednisone) 40 mg PO WITHBREAKFAST [facility] Last Admin: 12/11/19 08:24 Dose: 40 mg Documented by: Sodium Chloride (Saline Flush) 10 ml FLUSH ASDIRECTED PRN PRN Reason: Keep Vein Open Last Admin: 12/05/19 17:06 Dose: 10 ml Documented by: Sodium Chloride (Saline Flush) 2.5 ml FLUSH ASDIRECTED PRN PRN Reason: Keep Vein Open Last Admin: 12/05/19 17:06 Dose: 2.5 ml Documented by: Sepsis Event Note - Focused Exam Date Exam was Performed: 12/13/19 Time Exam was Performed: 20:09 - Problem List & Annotations (1) Acute on chronic respiratory failure with hypoxia and hypercapnia SNOMED Code(s): 04489293222769 Code(s): J96.21 - ACUTE AND CHRONIC RESPIRATORY FAILURE WITH HYPOXIA; J96.22 - ACUTE AND CHRONIC RESPIRATORY FAILURE WITH HYPERCAPNIA Status: Acute (2) COPD exacerbation SNOMED Code(s): 893376819 Code(s): J44.1 - CHRONIC OBSTRUCTIVE PULMONARY DISEASE W (ACUTE) EXACERBATION Status: Acute (3) Pneumonia of both lower lobes SNOMED Code(s): 056462937, 321871314 Code(s): J18.9 - PNEUMONIA, UNSPECIFIED ORGANISM Status: Acute (4) Obesity SNOMED Code(s): 878630356, 078444951 Code(s): E66.9 - OBESITY, UNSPECIFIED Status: Chronic (5) Tobacco use SNOMED Code(s): 841306198 Code(s): Z72.0 - TOBACCO USE Status: Chronic - Plan Plan:: I have seen and evaluated the patient and agree with the residents note unless specified in my note
[2019-12-06] MEDS: Albuterol/Ipratropium 3.0-0.5 MG/3 ML Neb Soln NEB SCH ×4 (12:13→21:17)
[2019-12-06] MEDS: Levofloxacin/Dextrose 5%-Water 750 MG in Premix Bag 1 BAG IV SCH (17:24)
[2019-12-07] MEDS: Albuterol/Ipratropium 3.0-0.5 MG/3 ML Neb Soln NEB SCH ×6 (02:27→21:20)
[2019-12-07] MEDS: methylPREDNISolone Sodium Succinate 40 MG/1 ML SDV IVPUSH SCH ×4 (02:27→21:08)
[2019-12-07 05:51] LABS: BLOOD UREA NITROGEN,BUN 12 mg/dL (7.0-18.0); CHLORIDE,CL 98 mmol/L (98-107); GLUCOSE RANDOM 157 mg/dL (74-106); POTASSIUM,K 4.6 mmol/L (3.5-5.1); SODIUM,NA 138 mmol/L (136-145)
[2019-12-07] MEDS: Omeprazole 20 MG Cap.CR PO SCH ×2 (06:33→17:07)
[2019-12-07] MEDS: Heparin Sodium 5,000 Units/ML Vial SUBCUT SCH ×2 (06:44→19:40)
--- NOTE | 2019-12-07 08:47 | PCM.PN ---
<Kamilah Giles - Last Filed: 12/07/19 11:35> - General Info Date of Service: 12/07/19 Subjective Update: Patient has no new complaints; still tight ; less fatigued. - Review of Systems General: Denies: Fever, Fatigue, Chills Pulmonary: Reports: Shortness of Breath, Cough, Wheezing. Denies: Sputum Cardiovascular: Reports: No Symptoms Gastrointestinal: Reports: No Symptoms Genitourinary: Reports: No Symptoms Musculoskeletal: Reports: No Symptoms Skin: Reports: No Symptoms - Patient Data Vitals - Most Recent: Last Vital Signs Temp 97.9 F 12/07/19 07:00 Pulse 75 12/07/19 07:00 Resp 20 12/07/19 03:08 BP 126/72 12/07/19 07:00 Pulse Ox 92 L 12/07/19 03:08 Weight - Most Recent: 108.862 kg I&O - Last 24 Hours: Intake & Output 12/06/19 12/07/19 12/07/19 22:59 06:59 14:59 Intake Total 400 750 Output Total 500 Balance 400 250 Lab Results Last 24 Hours: Laboratory Results - last 24 hr 12/07/19 12/07/19 Range/Units 05:03 05:03 WBC 8.18 (4.0-11.0) K/uL RBC 4.90 (4.30-5.90) M/uL Hgb 14.8 (12.0-16.0) g/dL Hct 49.2 H (36.0-46.0) % MCV 100.4 H (80.0-98.0) fL MCH 30.2 (27.0-32.0) pg MCHC 30.1 L (31.0-37.0) g/dL RDW Std Deviation 50.4 (28.0-62.0) fl RDW Coeff of Vera 14 (11.0-15.0) % Plt Count 214 (150-400) K/uL MPV 10.90 (7.40-12.00) fL Neut % (Auto) 93.9 H (48.0-80.0) % Lymph % (Auto) 3.4 L (16.0-40.0) % [place] % (Auto) 2.7 (0.0-15.0) % Eos % (Auto) 0.0 (0.0-7.0) % Baso % (Auto) 0.0 (0.0-1.5) % Neut # (Auto) 7.7 H (1.4-5.7) K/uL Lymph # (Auto) 0.3 L (0.6-2.4) K/uL [place] # (Auto) 0.2 (0.0-0.8) K/uL Eos # (Auto) 0.0 (0.0-0.7) K/uL Baso # (Auto) 0.0 (0.0-0.1) K/uL Nucleated RBC % 0.0 /100WBC Nucleated RBCs # 0 K/uL Sodium 138 (136-145) mmol/L Potassium 4.6 (3.5-5.1) mmol/L Chloride 98 (98-107) mmol/L Carbon Dioxide 41.0 H (21.0-32.0) mmol/L BUN 12 (7.0-18.0) mg/dL Creatinine 0.5 L (0.6-1.0) mg/dL Est Cr Clr Drug Dosing 123.21 mL/min Estimated GFR (MDRD) > 60.0 ml/min Glucose 157 H (74-106) mg/dL Calcium 8.7 (8.5-10.1) mg/dL Total Bilirubin 0.3 (0.2-1.0) mg/dL AST 12 L (15-37) IU/L ALT 23 (14-63) IU/L Alkaline Phosphatase 96 (46-116) U/L Total Protein 6.3 L (6.4-8.2) g/dL Albumin 2.8 L (3.4-5.0) g/dL Globulin 3.5 (2.6-4.0) g/dL Albumin/Globulin Ratio 0.8 L (0.9-1.6) Med Orders - Current: Current Medications Albuterol/Ipratropium (Duoneb 3.0-0.5 Mg/3 Ml) 3 ml NEB Q4HRRT [facility] Last Admin: 12/07/19 06:07 Dose: 3 ml Documented by: Heparin Sodium (Porcine) (Heparin Sodium) 5,000 units SUBCUT Q12H [facility] Last Admin: 12/07/19 06:44 Dose: 5,000 units Documented by: Levofloxacin/Dextrose 750 mg/ (Premix) 150 mls @ 100 mls/hr IV Q24H [facility] Last Admin: 12/06/19 17:24 Dose: 100 mls/hr Documented by: Methylprednisolone Sodium Succinate (Solu-Medrol) 40 mg IVPUSH Q6H [facility] Last Admin: 12/07/19 02:27 Dose: 40 mg Documented by: Nicotine (Habitrol) 21 mg TRDERM DAILY [facility] Last Admin: 12/06/19 08:43 Dose: 21 mg Documented by: Omeprazole (Omeprazole) 20 mg PO BIDAC [facility] Last Admin: 12/07/19 06:33 Dose: 20 mg Documented by: Lisinopril 10 Mg Tab - Patient Own Medication 1 each PO DAILY [facility] Last Admin: 12/06/19 09:39 Dose: 1 each Documented by: Sodium Chloride (Saline Flush) 10 ml FLUSH ASDIRECTED PRN PRN Reason: Keep Vein Open Last Admin: 12/05/19 17:06 Dose: 10 ml Documented by: Sodium Chloride (Saline Flush) 2.5 ml FLUSH ASDIRECTED PRN PRN Reason: Keep Vein Open Last Admin: 12/05/19 17:06 Dose: 2.5 ml Documented by: Discontinued Medications Albuterol/Ipratropium (Duoneb 3.0-0.5 Mg/3 Ml) 3 ml NEB ONETIME ONE Stop: 12/05/19 16:50 Last Admin: 12/05/19 16:59 Dose: 3 ml Documented by: Albuterol/Ipratropium (Duoneb 3.0-0.5 Mg/3 Ml) 3 ml NEB Q4HRRT ONE Stop: 12/05/19 19:35 Last Admin: 12/05/19 21:04 Dose: 3 ml Documented by: Azithromycin (Zithromax) 500 mg PO ONETIME ONE Stop: 12/05/19 16:50 Last Admin: 12/05/19 17:00 Dose: 500 mg Documented by: Ceftriaxone Sodium/Dextrose 2 (gm/ Premix) 50 mls @ 100 mls/hr IV ONETIME ONE Stop: 12/05/19 18:18 Last Admin: 12/05/19 18:07 Dose: Not Given Documented by: Levofloxacin/Dextrose 750 mg/ (Premix) 150 mls @ 100 mls/hr IV ONETIME ONE Stop: 12/05/19 19:40 Last Admin: 12/05/19 19:10 Dose: 100 mls/hr Documented by: Levofloxacin/Dextrose 500 mg/ (Premix) 100 mls @ 100 mls/hr IV ONETIME KOLE Lisinopril (Prinivil) 10 mg PO DAILY KOLE Last Admin: 12/06/19 09:39 Dose: Not Given Documented by: Prednisone (Prednisone) 50 mg PO ONETIME ONE Stop: 12/05/19 16:50 Last Admin: 12/05/19 17:01 Dose: 50 mg Documented by: - Exam Quality Assessment: Supplemental Oxygen General: Alert, Oriented, Cooperative HEENT: EOMI Lungs: Other (tight breath sounds; decreased I/E phase; minimal expiratory wheeze; more wheezing today compared to yesterday ) Cardiovascular: Regular Rate, Regular Rhythm GI/Abdominal Exam: Soft, Non-Tender Back Exam: Full Range of Motion Extremities: No Pedal Edema Neurological: No New Focal Deficit Psy/Mental Status: Alert, Normal Affect, Normal Mood Sepsis Event Note - Evaluation Sepsis Screening Result: No Definite Risk - Focused Exam Vital Signs: Vital Signs Temp Pulse Resp BP Pulse Ox 12/07/19 07:00 97.9 F 75 126/72 12/07/19 03:08 97.8 F 81 20 114/53 L 92 L 12/07/19 00:06 97.3 F 84 19 129/65 93 L Date Exam was Performed: 12/07/19 Time Exam was Performed: 11:35 - Problem List Review Problem List Initiated/Reviewed/Updated: Yes - My Orders Last 24 Hours: My Active Orders 12/06/19 09:00 Patient's Own Medication [Ptom] 1 each PO DAILY methylPREDNISolone Sod Succ [Solu-MEDROL] 40 mg IVPUSH Q6H 12/06/19 11:48 RT BiPAP/CPAP [RC] ASDIRECTED 12/06/19 18:00 Levofloxacin/Dextrose 5%-Water [Levaquin in D5W 750 MG/150 ML] 750 mg Premix Bag 1 bag IV Q24H - Plan Plan:: Assessment: 1. Acute hypoxic respiratory failure secondary to COPD exacerbation 2. Leukocytosis in setting of RLL CAP:resolved 3. Macrocytosis 4. PMH: HTN, tobacco abuse, morbid obesity Plan Admit to inpatient. Full code. Up ad bob. DVT: heparin 5000 q12 hrs. GI: omeprazole 20 bid Telemetry. i/o's per routine. Diet: ADA 1. COPD exacerbation: pt .still requiring continuous BiPap, High flow when ambulating; increasing CO2 retention; Transfer to ICU for higher level of monitoring ; concerns for impending respiratory failure. Repeat ABG this PM; chest CTA ordered; low Wells score; will continue to reassess; maintain saturation above 88% w. supplemental O2/BipPap ; continue duo-nebs q4hrs; continue Steroid regimen CXR: small RLL CAP: On Levaquin IV methylprednisolone since pt. is still requiring supplemental o2 Nicotine patch for daily 1-2 PPD tobacco abuse Telemetry: Sinus tachycardia+ multiple Duo nebs treatments; COVID testing: negative 2. HTN: restart Lisinopril <Mickey Palafox - Last Filed: 12/13/19 20:03> - Patient Data Vitals - Most Recent: Last Vital Signs Temp 36.1 C 12/11/19 07:54 Pulse 89 12/11/19 07:54 Resp 18 12/11/19 07:54 BP 133/65 12/11/19 07:54 Pulse Ox 91 L 12/11/19 07:54 Med Orders - Current: Current Medications Discontinued Medications Albuterol/Ipratropium (Duoneb 3.0-0.5 Mg/3 Ml) 3 ml NEB ONETIME ONE Stop: 12/05/19 16:50 Last Admin: 12/05/19 16:59 Dose: 3 ml Documented by: Albuterol/Ipratropium (Duoneb 3.0-0.5 Mg/3 Ml) 3 ml NEB Q4HRRT ONE Stop: 12/05/19 19:35 Last Admin: 12/05/19 21:04 Dose: 3 ml Documented by: Albuterol/Ipratropium (Duoneb 3.0-0.5 Mg/3 Ml) 3 ml NEB Q4HRRT [facility] Last Admin: 12/11/19 09:34 Dose: 3 ml Documented by: Aspirin (Aspirin) 81 mg PO DAILY [facility] Last Admin: 12/11/19 08:42 Dose: Not Given Documented by: Aspirin (Aspirin) 81 mg PO DAILY [facility] Last Admin: 12/11/19 08:24 Dose: 81 mg Documented by: Azithromycin (Zithromax) 500 mg PO ONETIME ONE Stop: 12/05/19 16:50 Last Admin: 12/05/19 17:00 Dose: 500 mg Documented by: Cholecalciferol (Vitamin D3) 50 mcg PO DAILY [facility] Last Admin: 12/11/19 08:30 Dose: Not Given Documented by: Diphtheria/Tetanus/Acell Pertussis (Boostrix) 0.5 ml IM .ONCE ONE Stop: 12/09/19 13:03 Heparin Sodium (Porcine) (Heparin Sodium) 5,000 units SUBCUT Q12H [facility] Last Admin: 12/11/19 07:02 Dose: 5,000 units Documented by: Ceftriaxone Sodium/Dextrose 2 (gm/ Premix) 50 mls @ 100 mls/hr IV ONETIME ONE Stop: 12/05/19 18:18 Last Admin: 12/05/19 18:07 Dose: Not Given Documented by: Levofloxacin/Dextrose 750 mg/ (Premix) 150 mls @ 100 mls/hr IV ONETIME ONE Stop: 12/05/19 19:40 Last Admin: 12/05/19 19:10 Dose: 100 mls/hr Documented by: Levofloxacin/Dextrose 500 mg/ (Premix) 100 mls @ 100 mls/hr IV ONETIME [facility] Levofloxacin/Dextrose 750 mg/ (Premix) 150 mls @ 100 mls/hr IV Q24H [facility] Last Admin: 12/10/19 18:28 Dose: 100 mls/hr Documented by: Sodium Chloride (Normal Saline) 1,000 mls @ 100 mls/hr IV Q10H [facility] Last Admin: 12/08/19 09:35 Dose: Not Given Documented by: Sodium Chloride (Normal Saline) 1,000 mls @ 100 mls/hr IV ASDIRECTED [facility] Last Admin: 12/09/19 00:26 Dose: 100 mls/hr Documented by: Piperacillin Sod/Tazobactam (Sod 4.5 gm/ Sodium Chloride) 100 mls @ 100 mls/hr IV Q6H [facility] Last Admin: 12/09/19 10:12 Dose: 100 mls/hr Documented by: Iopamidol (Isovue-370 (76%)) 75 ml IVPUSH ONETIME STA Stop: 12/07/19 17:06 Last Admin: 12/07/19 17:06 Dose: 75 ml Documented by: Lisinopril (Prinivil) 10 mg PO DAILY [facility] Last Admin: 12/06/19 09:39 Dose: Not Given Documented by: Methylprednisolone Sodium Succinate (Solu-Medrol) 40 mg IVPUSH Q6H [facility] Last Admin: 12/08/19 08:30 Dose: 40 mg Documented by: Methylprednisolone Sodium Succinate (Solu-Medrol) 40 mg IVPUSH Q8H [facility] Last Admin: 12/09/19 09:06 Dose: 40 mg Documented by: Methylprednisolone Sodium Succinate (Solu-Medrol) 40 mg IVPUSH Q12H [facility] Last Admin: 12/10/19 10:08 Dose: 40 mg Documented by: Miscellaneous Information (Remove Patch) 1 ea TRDERM BEDTIME [facility] Last Admin: 12/10/19 21:08 Dose: Not Given Documented by: Multivitamins/Minerals/Vitamin C (Tab-A-Cheo) 1 tab PO DAILY [facility] Last Admin: 12/11/19 08:29 Dose: Not Given Documented by: Nicotine (Habitrol) 21 mg TRDERM DAILY [facility] Last Admin: 12/11/19 08:27 Dose: Not Given Documented by: Omeprazole (Omeprazole) 20 mg PO BIDAC [facility] Last Admin: 12/11/19 07:02 Dose: 20 mg Documented by: Lisinopril 10 Mg Tab - Patient Own Medication 1 each PO DAILY [facility] Last Admin: 12/11/19 08:26 Dose: 1 each Documented by: [Vitamin A] 2,400 (Mcg) 1 each PO DAILY [facility] Last Admin: 12/11/19 08:27 Dose: Not Given Documented by: [Vitamin E] 180 Mg 1 each PO DAILY [facility] Last Admin: 12/11/19 08:27 Dose: Not Given Documented by: Pneumococcal Polyvalent Vaccine (Pneumovax 23) 0.5 ml SUBCUT .ONCE ONE Stop: 12/09/19 13:02 Prednisone (Prednisone) 50 mg PO ONETIME ONE Stop: 12/05/19 16:50 Last Admin: 12/05/19 17:01 Dose: 50 mg Documented by: Prednisone (Prednisone) 40 mg PO WITHBREAKFAST [facility] Last Admin: 12/11/19 08:24 Dose: 40 mg Documented by: Sodium Chloride (Saline Flush) 10 ml FLUSH ASDIRECTED PRN PRN Reason: Keep Vein Open Last Admin: 12/05/19 17:06 Dose: 10 ml Documented by: Sodium Chloride (Saline Flush) 2.5 ml FLUSH ASDIRECTED PRN PRN Reason: Keep Vein Open Last Admin: 12/05/19 17:06 Dose: 2.5 ml Documented by: Sepsis Event Note - Focused Exam Date Exam was Performed: 12/13/19 Time Exam was Performed: 20:03 - Problem List & Annotations (1) Acute on chronic respiratory failure with hypoxia and hypercapnia SNOMED Code(s): 23424935231719 Code(s): J96.21 - ACUTE AND CHRONIC RESPIRATORY FAILURE WITH HYPOXIA; J96.22 - ACUTE AND CHRONIC RESPIRATORY FAILURE WITH HYPERCAPNIA Status: Acute (2) COPD exacerbation SNOMED Code(s): 284802761 Code(s): J44.1 - CHRONIC OBSTRUCTIVE PULMONARY DISEASE W (ACUTE) EXACERBATION Status: Acute (3) Pneumonia of both lower lobes SNOMED Code(s): 079425798, 052264049 Code(s): J18.9 - PNEUMONIA, UNSPECIFIED ORGANISM Status: Acute (4) Obesity SNOMED Code(s): 816980285, 547858997 Code(s): E66.9 - OBESITY, UNSPECIFIED Status: Chronic (5) Tobacco use SNOMED Code(s): 297217595 Code(s): Z72.0 - TOBACCO USE Status: Chronic - Plan Plan:: I have seen and evaluated the patient and agree with the residents note unless specified in my note
[2019-12-07] MEDS: LISINOPRIL 10 MG PO SCH (08:59)
[2019-12-07] MEDS: Nicotine 21 MG/24 Hr Patch TRDERM SCH (09:45)
[2019-12-07] MEDS: Sodium Chloride 0.9% 1,000 ML IV SCH ×2 (10:40→22:57)
--- NOTE | 2019-12-07 13:49 | PN ---
THC Physician - Brief Progress [id number]/18/2020 13:44[facility] Mikey Arreguin, [place] - MWN (BABITA) - MWN ICUGERIPHILIP PILI ZavalaDate of Service 12/07/2019 13:44HPI/Event s of Note 54 year old female with end stage copd supposed to be on O2 at home for years, still smokin g 3ppd presenting with hypoxemiaAdmitted 12/05 for saturations on arrival 61%D/W Resident PhysicianAdv ised:Patient has acute on chronic hypercapnic hypoxemic resp failureNeeds bipap on d/cLikely o2 on d/ cHRCT/ CTAECHO with bubble studyStop Smoking immediatelyNeed for triple therapy outpatient, ICS/LAMA/ lABAConsider Daliresp outpatientWould screen for alpha one antitrypsinOrdered:D/W Resident as aboveAd ded on IGEWill await echo and ctHave reviewed in the chart:labs, cxrSuggest:As aboveThank you for inv olving the EICU in the care of this patient.Will continue to follow along and monitor closely with ex cellent bedside team.Interventions Major-Respiratory failure - evaluation and managementMinor-Communi cation with other healthcare providers and/or family, Routine modifications to care plan (e.g. PRN me dications for pain, fever) 13: 48
[2019-12-07] MEDS ORDERED: Iopamidol 755 Mg/ML 100 ML Bottle IVPUSH STA (17:05)
[2019-12-07] MEDS: Levofloxacin/Dextrose 5%-Water 750 MG in Premix Bag 1 BAG IV SCH (17:07)
--- NOTE | 2019-12-07 17:20 | CT ---
CT chest Technique: Multiple axial sections through the chest were obtained. Intravenous contrast was utilized. Study has been performed as a pulmonary angiogram protocol. Findings: Pulmonary arteries are moderately well opacified. No filling defects are seen to indicate pulmonary embolism. Aorta shows no aneurysm. Mediastinum and hilar region show no adenopathy. No pericardial thickening is seen. Heart is slightly generous in size. Visualized upper abdominal structures shows no discrete abnormality. Prior cholecystectomy is noted. Emphysematous changes are noted. Increased density is noted within both posterior lung bases. Differential includes aspiration pneumonia as well as bacterial pneumonia. No other acute parenchymal change is appreciated. Bone window settings were reviewed. Scattered degenerative change within the spine is seen. Several old right-sided rib fractures are seen which appear healed. Impression: 1. No findings of pulmonary embolism. 2. Emphysematous change. 3. Increased density within both posterior lung bases. Differential includes bacterial pneumonia as well as change from aspiration. Diagnostic code #3 This report was dictated in MDT
[2019-12-08] MEDS: Albuterol/Ipratropium 3.0-0.5 MG/3 ML Neb Soln NEB SCH ×6 (02:19→21:19)
[2019-12-08] MEDS: methylPREDNISolone Sodium Succinate 40 MG/1 ML SDV IVPUSH SCH ×3 (03:06→16:44)
[2019-12-08 06:41] LABS: BLOOD UREA NITROGEN,BUN 14 mg/dL (7.0-18.0); CARBON DIOXIDE,CO2 39.6 mmol/L (21.0-32.0); CHLORIDE,CL 100 mmol/L (98-107); GLUCOSE RANDOM 144 mg/dL (74-106); POTASSIUM,K 4.7 mmol/L (3.5-5.1); SODIUM,NA 139 mmol/L (136-145)
[2019-12-08] MEDS: Omeprazole 20 MG Cap.CR PO SCH ×2 (07:12→16:51)
[2019-12-08] MEDS: Heparin Sodium 5,000 Units/ML Vial SUBCUT SCH ×2 (08:25→20:06)
[2019-12-08] MEDS: LISINOPRIL 10 MG PO SCH (08:40)
[2019-12-08 09:02] LABS: BORDETELLA PARAPERT IS1001 Not Detected (Not Detected)
--- NOTE | 2019-12-08 09:15 | PN ---
THC Physician - Brief Progress [id number]/19/2020 08:28[facility] Mikey Arreguin, SUSANNE - DELMISN (BABITA) - [facility] MCKENNAStephaniDate of Service 12/08/2019 08:28HPI/Event s of Note eICU progress note:54-year-old female currently admitted to the hospital for acute hypoxic/ hypercapnic respiratory failure secondary to COPD exacerbation. Per EMR review no acute issues overn ight. Patient remains on BiPAP currently.Patient seen on camera, on BiPAP does not appear to be in a cute distress and seems comfortable. BiPAP /, RR 14, TV 1000Vital signs reviewed.Labs/EMR/imaging reviewedAcute hypoxic/hypercapnic respiratory failure-Secondary to COPD exacerbation-Continue levaqu in until cultures final on sputum and de-escalate accordingly. -Continue with Solu-Medrol and switch to prednisone once able to tolerate being off BiPAP. Recommend trialing off bipap today and switching to HiFlo nasal canula to see if patient tolerates. -CT PE negative. 2D echo pending. -Can consider t rial of diuresis (currently unable to trend weight via EMR) but given BMI. Would recommend lasix 20mg IV.Interventions Major-Hypercarbia - evaluation and management, Hypoxemia - evaluation and managemen t, Respiratory failure - evaluation and managementElectronically Signed by: KEMAR BYERS) on 0 12/08/2019 09:14
[2019-12-08] MEDS: Sodium Chloride 0.9% 1,000 ML IV SCH ×2 (09:34→09:35)
[2019-12-08] MEDS: Aspirin 81 MG Tab.Chew PO SCH (09:43)
[2019-12-08] MEDS: Nicotine 21 MG/24 Hr Patch TRDERM SCH (09:44)
--- NOTE | 2019-12-08 10:55 | PCM.PN ---
- General Info Date of Service: 12/08/19 Admission Dx/Problem (Free Text): Admission Diagnosis/Problem Admission Diagnosis/Problem COPD, Severe chronic obstructive pulmonary disease Subjective Update: Feeling a little better today, continues to have some tightness and wheezing. Slept a little better last night. No chest pain. No cough. No abdominal pain. Asking for Nicotine patch to be removed at night due to weird dreams with it. Functional Status: Reports: Pain Controlled, Tolerating Diet, Ambulating, Urinating - Review of Systems General: Reports: Fatigue HEENT: Reports: No Symptoms Pulmonary: Reports: Shortness of Breath, Wheezing. Denies: Cough Cardiovascular: Denies: Chest Pain Gastrointestinal: Denies: Abdominal Pain, Nausea, Vomiting Genitourinary: Reports: No Symptoms Skin: Reports: No Symptoms Neurological: Reports: No Symptoms Psychiatric: Reports: No Symptoms - Patient Data Vitals - Most Recent: Last Vital Signs Temp 97.1 F 12/07/19 21:00 Pulse 66 12/08/19 02:00 Resp 23 H 12/08/19 07:00 BP 122/71 12/08/19 07:00 Pulse Ox 94 L 12/08/19 07:00 Weight - Most Recent: 110.8 kg I&O - Last 24 Hours: Intake & Output 12/07/19 12/08/19 12/08/19 22:59 06:59 14:59 Intake Total 711 1125 Output Total 1050 1100 Balance -339 25 Lab Results Last 24 Hours: Laboratory Results - last 24 hr 12/07/19 12/07/19 12/07/19 Range/Units 12:50 13:10 13:17 WBC (4.0-11.0) K/uL RBC (4.30-5.90) M/uL Hgb (12.0-16.0) g/dL Hct (36.0-46.0) % MCV (80.0-98.0) fL MCH (27.0-32.0) pg MCHC (31.0-37.0) g/dL RDW Std Deviation (28.0-62.0) fl RDW Coeff of Vera (11.0-15.0) % Plt Count (150-400) K/uL MPV (7.40-12.00) fL Neut % (Auto) (48.0-80.0) % Lymph % (Auto) (16.0-40.0) % [facility] % (Auto) (0.0-15.0) % Eos % (Auto) (0.0-7.0) % Baso % (Auto) (0.0-1.5) % Neut # (Auto) (1.4-5.7) K/uL Lymph # (Auto) (0.6-2.4) K/uL [facility] # (Auto) (0.0-0.8) K/uL Eos # (Auto) (0.0-0.7) K/uL Baso # (Auto) (0.0-0.1) K/uL Nucleated RBC % /100WBC Nucleated RBCs # K/uL D-Dimer, Quantitative 0.42 (0.0-0.50) mg/L FEU ABG pH (7.35-7.45) ABG pCO2 (35-45) mmHG ABG pO2 (75-100) mmHG ABG HCO3 (22-26) mEq/L ABG Total CO2 ABG Base Excess (-2.0-2.0) Sodium (136-145) mmol/L Potassium (3.5-5.1) mmol/L Chloride (98-107) mmol/L Carbon Dioxide (21.0-32.0) mmol/L BUN (7.0-18.0) mg/dL Creatinine (0.6-1.0) mg/dL Est Cr Clr Drug Dosing mL/min Estimated GFR (MDRD) ml/min Glucose (74-106) mg/dL Calcium (8.5-10.1) mg/dL Magnesium (1.8-2.4) mg/dL Vitamin B12 (193-986) pg/mL Procalcitonin <0.05 (<0.10) ng/mL Adenovirus (PCR) Not Detected (Not Detected) B. pertussis DNA (PCR) Not Detected (Not Detected) B.parapertussis DNA PCR Not Detected (Not Detected) C. pneumoniae DNA (PCR) Not Detected (Not Detected) Coronavirus (PCR) Not Detected (Not Detected) Human Metapneumovir PCR Not Detected (Not Detected) Influenza A (RT-PCR) Not Detected (Not Detected) Influenza B (RT-PCR) Not Detected (Not Detected) M. pneumoniae (PCR) Not Detected (Not Detected) Parainfluen 1,2,3,4 PCR Not Detected (Not Detected) RSV (PCR) Not Detected (Not Detected) Entero/Rhino (PCR) Not Detected (Not Detected) 12/07/19 12/07/19 12/08/19 Range/Units 13:17 15:58 06:05 WBC 10.25 (4.0-11.0) K/uL RBC 4.99 (4.30-5.90) M/uL Hgb 15.2 (12.0-16.0) g/dL Hct 49.1 H (36.0-46.0) % MCV 98.4 H (80.0-98.0) fL MCH 30.5 (27.0-32.0) pg MCHC 31.0 (31.0-37.0) g/dL RDW Std Deviation 49.8 (28.0-62.0) fl RDW Coeff of Vera 14 (11.0-15.0) % Plt Count 221 (150-400) K/uL MPV 10.50 (7.40-12.00) fL Neut % (Auto) 91.5 H (48.0-80.0) % Lymph % (Auto) 4.5 L (16.0-40.0) % [facility] % (Auto) 3.9 (0.0-15.0) % Eos % (Auto) 0.0 (0.0-7.0) % Baso % (Auto) 0.1 (0.0-1.5) % Neut # (Auto) 9.4 H (1.4-5.7) K/uL Lymph # (Auto) 0.5 L (0.6-2.4) K/uL [facility] # (Auto) 0.4 (0.0-0.8) K/uL Eos # (Auto) 0.0 (0.0-0.7) K/uL Baso # (Auto) 0.0 (0.0-0.1) K/uL Nucleated RBC % 0.0 /100WBC Nucleated RBCs # 0 K/uL D-Dimer, Quantitative (0.0-0.50) mg/L FEU ABG pH 7.441 (7.35-7.45) ABG pCO2 62 H (35-45) mmHG ABG pO2 78 (75-100) mmHG ABG HCO3 42 H (22-26) mEq/L ABG Total CO2 36.4 ABG Base Excess 14.4 H (-2.0-2.0) Sodium (136-145) mmol/L Potassium (3.5-5.1) mmol/L Chloride (98-107) mmol/L Carbon Dioxide (21.0-32.0) mmol/L BUN (7.0-18.0) mg/dL Creatinine (0.6-1.0) mg/dL Est Cr Clr Drug Dosing mL/min Estimated GFR (MDRD) ml/min Glucose (74-106) mg/dL Calcium (8.5-10.1) mg/dL Magnesium (1.8-2.4) mg/dL Vitamin B12 553 (193-986) pg/mL Procalcitonin (<0.10) ng/mL Adenovirus (PCR) (Not Detected) B. pertussis DNA (PCR) (Not Detected) B.parapertussis DNA PCR (Not Detected) C. pneumoniae DNA (PCR) (Not Detected) Coronavirus (PCR) (Not Detected) Human Metapneumovir PCR (Not Detected) Influenza A (RT-PCR) (Not Detected) Influenza B (RT-PCR) (Not Detected) M. pneumoniae (PCR) (Not Detected) Parainfluen 1,2,3,4 PCR (Not Detected) RSV (PCR) (Not Detected) Entero/Rhino (PCR) (Not Detected) 12/08/19 12/08/19 Range/Units 06:05 07:00 WBC (4.0-11.0) K/uL RBC (4.30-5.90) M/uL Hgb (12.0-16.0) g/dL Hct (36.0-46.0) % MCV (80.0-98.0) fL MCH (27.0-32.0) pg MCHC (31.0-37.0) g/dL RDW Std Deviation (28.0-62.0) fl RDW Coeff of Vera (11.0-15.0) % Plt Count (150-400) K/uL MPV (7.40-12.00) fL Neut % (Auto) (48.0-80.0) % Lymph % (Auto) (16.0-40.0) % [facility] % (Auto) (0.0-15.0) % Eos % (Auto) (0.0-7.0) % Baso % (Auto) (0.0-1.5) % Neut # (Auto) (1.4-5.7) K/uL Lymph # (Auto) (0.6-2.4) K/uL [facility] # (Auto) (0.0-0.8) K/uL Eos # (Auto) (0.0-0.7) K/uL Baso # (Auto) (0.0-0.1) K/uL Nucleated RBC % /100WBC Nucleated RBCs # K/uL D-Dimer, Quantitative (0.0-0.50) mg/L FEU ABG pH 7.393 (7.35-7.45) ABG pCO2 70 H (35-45) mmHG ABG pO2 85 (75-100) mmHG ABG HCO3 43 H (22-26) mEq/L ABG Total CO2 37.3 ABG Base Excess 13.8 H (-2.0-2.0) Sodium 139 (136-145) mmol/L Potassium 4.7 (3.5-5.1) mmol/L Chloride 100 (98-107) mmol/L Carbon Dioxide 39.6 H (21.0-32.0) mmol/L BUN 14 (7.0-18.0) mg/dL Creatinine 0.6 (0.6-1.0) mg/dL Est Cr Clr Drug Dosing 102.68 mL/min Estimated GFR (MDRD) > 60.0 ml/min Glucose 144 H (74-106) mg/dL Calcium 8.7 (8.5-10.1) mg/dL Magnesium 2.0 (1.8-2.4) mg/dL Vitamin B12 (193-986) pg/mL Procalcitonin (<0.10) ng/mL Adenovirus (PCR) (Not Detected) B. pertussis DNA (PCR) (Not Detected) B.parapertussis DNA PCR (Not Detected) C. pneumoniae DNA (PCR) (Not Detected) Coronavirus (PCR) (Not Detected) Human Metapneumovir PCR (Not Detected) Influenza A (RT-PCR) (Not Detected) Influenza B (RT-PCR) (Not Detected) M. pneumoniae (PCR) (Not Detected) Parainfluen 1,2,3,4 PCR (Not Detected) RSV (PCR) (Not Detected) Entero/Rhino (PCR) (Not Detected) Twan Results Last 24 Hours: Microbiology 12/07/19 16:25 Gram Stain - Final Sputum - Expectorated Med Orders - Current: Current Medications Albuterol/Ipratropium (Duoneb 3.0-0.5 Mg/3 Ml) 3 ml NEB Q4HRRT [facility] Last Admin: 12/08/19 10:10 Dose: 3 ml Documented by: Aspirin (Aspirin) 81 mg PO DAILY [facility] Last Admin: 12/08/19 09:43 Dose: 81 mg Documented by: Diphtheria/Tetanus/Acell Pertussis (Boostrix) 0.5 ml IM .ONCE ONE Stop: 12/09/19 13:03 Heparin Sodium (Porcine) (Heparin Sodium) 5,000 units SUBCUT Q12H [facility] Last Admin: 12/08/19 08:25 Dose: 5,000 units Documented by: Levofloxacin/Dextrose 750 mg/ (Premix) 150 mls @ 100 mls/hr IV Q24H [facility] Last Admin: 12/07/19 17:07 Dose: 100 mls/hr Documented by: Sodium Chloride (Normal Saline) 1,000 mls @ 100 mls/hr IV ASDIRECTED [facility] Last Admin: 12/08/19 09:34 Dose: 100 mls/hr Documented by: Piperacillin Sod/Tazobactam (Sod 4.5 gm/ Sodium Chloride) 100 mls @ 100 mls/hr IV Q6H [facility] Methylprednisolone Sodium Succinate (Solu-Medrol) 40 mg IVPUSH Q8H [facility] Miscellaneous Information (Remove Patch) 1 ea TRDERM BEDTIME [facility] Nicotine (Habitrol) 21 mg TRDERM DAILY [facility] Last Admin: 12/08/19 09:44 Dose: 21 mg Documented by: Omeprazole (Omeprazole) 20 mg PO BIDAC [facility] Last Admin: 12/08/19 07:12 Dose: 20 mg Documented by: Lisinopril 10 Mg Tab - Patient Own Medication 1 each PO DAILY [facility] Last Admin: 12/08/19 08:40 Dose: 1 each Documented by: Pneumococcal Polyvalent Vaccine (Pneumovax 23) 0.5 ml SUBCUT .ONCE ONE Stop: 12/09/19 13:02 Sodium Chloride (Saline Flush) 10 ml FLUSH ASDIRECTED PRN PRN Reason: Keep Vein Open Last Admin: 12/05/19 17:06 Dose: 10 ml Documented by: Sodium Chloride (Saline Flush) 2.5 ml FLUSH ASDIRECTED PRN PRN Reason: Keep Vein Open Last Admin: 12/05/19 17:06 Dose: 2.5 ml Documented by: Discontinued Medications Albuterol/Ipratropium (Duoneb 3.0-0.5 Mg/3 Ml) 3 ml NEB ONETIME ONE Stop: 12/05/19 16:50 Last Admin: 12/05/19 16:59 Dose: 3 ml Documented by: Albuterol/Ipratropium (Duoneb 3.0-0.5 Mg/3 Ml) 3 ml NEB Q4HRRT ONE Stop: 12/05/19 19:35 Last Admin: 12/05/19 21:04 Dose: 3 ml Documented by: Azithromycin (Zithromax) 500 mg PO ONETIME ONE Stop: 12/05/19 16:50 Last Admin: 12/05/19 17:00 Dose: 500 mg Documented by: Ceftriaxone Sodium/Dextrose 2 (gm/ Premix) 50 mls @ 100 mls/hr IV ONETIME ONE Stop: 12/05/19 18:18 Last Admin: 12/05/19 18:07 Dose: Not Given Documented by: Levofloxacin/Dextrose 750 mg/ (Premix) 150 mls @ 100 mls/hr IV ONETIME ONE Stop: 12/05/19 19:40 Last Admin: 12/05/19 19:10 Dose: 100 mls/hr Documented by: Levofloxacin/Dextrose 500 mg/ (Premix) 100 mls @ 100 mls/hr IV ONETIME [facility] Sodium Chloride (Normal Saline) 1,000 mls @ 100 mls/hr IV Q10H [facility] Last Admin: 12/08/19 09:35 Dose: Not Given Documented by: Iopamidol (Isovue-370 (76%)) 75 ml IVPUSH ONETIME STA Stop: 12/07/19 17:06 Last Admin: 12/07/19 17:06 Dose: 75 ml Documented by: Lisinopril (Prinivil) 10 mg PO DAILY [facility] Last Admin: 12/06/19 09:39 Dose: Not Given Documented by: Methylprednisolone Sodium Succinate (Solu-Medrol) 40 mg IVPUSH Q6H [facility] Last Admin: 12/08/19 08:30 Dose: 40 mg Documented by: Prednisone (Prednisone) 50 mg PO ONETIME ONE Stop: 12/05/19 16:50 Last Admin: 12/05/19 17:01 Dose: 50 mg Documented by: - Exam General: Alert, Oriented, Cooperative, No Acute Distress Neck: Supple Lungs: Decreased Breath Sounds, Wheezing Cardiovascular: Regular Rate, Regular Rhythm GI/Abdominal Exam: Normal Bowel Sounds Back Exam: Normal Inspection, Full Range of Motion Extremities: Normal Inspection, Normal Range of Motion, Non-Tender, No Pedal Edema Neurological: No New Focal Deficit Psy/Mental Status: Alert, Normal Affect, Normal Mood Sepsis Event Note - Evaluation Sepsis Screening Result: No Definite Risk - Focused Exam Vital Signs: Vital Signs Pulse Resp BP Pulse Ox 12/08/19 07:00 23 H 122/71 94 L 12/08/19 06:00 16 102/64 91 L 12/08/19 05:00 22 H 97/57 L 90 L 12/08/19 04:00 24 H 100/56 L 92 L 12/08/19 03:00 23 H 97/51 L 91 L 12/08/19 02:00 66 24 H 104/54 L 91 L 12/08/19 01:00 20 103/60 93 L 12/08/19 00:00 68 22 H 109/63 91 L 12/07/19 23:37 70 25 H 114/59 L 92 L Date Exam was Performed: 12/08/19 Time Exam was Performed: 12:56 - Problem List & Annotations (1) Acute on chronic respiratory failure with hypoxia and hypercapnia SNOMED Code(s): 65811354576338 Code(s): J96.21 - ACUTE AND CHRONIC RESPIRATORY FAILURE WITH HYPOXIA; J96.22 - ACUTE AND CHRONIC RESPIRATORY FAILURE WITH HYPERCAPNIA Status: Acute Current Visit: Yes (2) Pneumonia of both lower lobes SNOMED Code(s): 520028613, 687945816 Code(s): J18.9 - PNEUMONIA, UNSPECIFIED ORGANISM Status: Acute Current Visit: Yes (3) Tobacco use SNOMED Code(s): 200172426 Code(s): Z72.0 - TOBACCO USE Status: Chronic Current Visit: Yes (4) Obesity SNOMED Code(s): 735481822, 078553906 Code(s): E66.9 - OBESITY, UNSPECIFIED Status: Chronic Current Visit: Yes (5) COPD exacerbation SNOMED Code(s): 679931388 Code(s): J44.1 - CHRONIC OBSTRUCTIVE PULMONARY DISEASE W (ACUTE) EXACERBATION Status: Acute Current Visit: Yes - Problem List Review Problem List Initiated/Reviewed/Updated: Yes - My Orders Last 24 Hours: My Active Orders 12/07/19 10:40 Transfer Patient (Change bed) [ADT] Routine 12/07/19 10:41 Cardiac Monitoring [RC] . DIRECTED 12/08/19 09:00 Sodium Chloride 0.9% [Normal Saline] 1,000 ml IV ASDIRECTED 12/08/19 09:30 Aspirin 81 mg PO DAILY 12/08/19 10:00 Piperacillin/Tazobactam [Piperacil-Tazobact] 4.5 gm Sodium Chloride 0.9% [Normal Saline] 100 ml IV Q6H 12/08/19 14:00 ABG [BLOOD GAS ARTERIAL] [BG] Routine 12/08/19 16:30 methylPREDNISolone Sod Succ [Solu-MEDROL] 40 mg IVPUSH Q8H 12/09/19 05:11 BASIC METABOLIC PANEL,BMP [CHEM] AM CBC WITH AUTO DIFF [HEME] AM MAGNESIUM [CHEM] AM - Plan Plan:: This 54 year old female admitted with acute on chronic hypoxic/hypercapnic respiratory failure and COPD exacerbation 1. Acute hypoxic respiratory failure secondary to COPD exacerbation, CAP - Continue Bipap this morning, recheck ABG in the afternoon. If stable or improved will transition to HFNC - CT angio ruled out PE, revealed possible bilateral lower lobe pneumonia. Will escalate therapy with addition of Zosyn and monitor improvement. Continue Levaquin. - Continue Solumedrol, decrease to 40 Q8 hrs IV. - Continue Scheduled Duonebs - Will need treatment with ICS/LAMA/LABA on discharge, arrange follow up with pulmonology - ECHO pending, to evaluate for cardiac source of hypoxia - Counseled at length this morning regarding tobacco cessation and chemical exposure with work. Continue Nicotine patch, remove at bedtime. 2. HTN: - Stable, continue Lisinopril and ASA VTE prophylaxis: Heparin Dispo: 2-3 days pending improvement
[2019-12-08] MEDS: Piperacillin/Tazobactam 4.5 GM in Sodium Chloride 0.9% 100 ML IV SCH ×3 (11:06→21:18)
[2019-12-08] MEDS: Levofloxacin/Dextrose 5%-Water 750 MG in Premix Bag 1 BAG IV SCH (18:01)
[2019-12-09] MEDS: Sodium Chloride 0.9% 1,000 ML IV SCH (00:26)
[2019-12-09] MEDS: methylPREDNISolone Sodium Succinate 40 MG/1 ML SDV IVPUSH SCH ×4 (01:10→21:41)
[2019-12-09] MEDS: Albuterol/Ipratropium 3.0-0.5 MG/3 ML Neb Soln NEB SCH ×6 (01:18→21:28)
[2019-12-09] MEDS: Piperacillin/Tazobactam 4.5 GM in Sodium Chloride 0.9% 100 ML IV SCH ×2 (04:25→10:12)
[2019-12-09 06:25] LABS: BLOOD UREA NITROGEN,BUN 18 mg/dL (7.0-18.0); CHLORIDE,CL 101 mmol/L (98-107); GLUCOSE RANDOM 143 mg/dL (74-106); POTASSIUM,K 4.7 mmol/L (3.5-5.1); SODIUM,NA 141 mmol/L (136-145)
[2019-12-09] MEDS: Omeprazole 20 MG Cap.CR PO SCH ×2 (07:38→16:53)
[2019-12-09] MEDS: Heparin Sodium 5,000 Units/ML Vial SUBCUT SCH ×2 (07:38→19:51)
[2019-12-09] MEDS: Aspirin 81 MG Tab.Chew PO SCH (09:07)
[2019-12-09] MEDS: Nicotine 21 MG/24 Hr Patch TRDERM SCH (09:07)
[2019-12-09] MEDS: LISINOPRIL 10 MG PO SCH (09:08)
--- NOTE | 2019-12-09 09:15 | PN ---
THC Physician - Brief Progress [id number]/20/2020 08:39[facility] Mikey Arreguin, SUSANNE - DELMISN (BABITA) - [facility]N [facility]ENTERPILI MCKENNADate of Service 12/09/2019 08:39HPI/Event s of Note eICU progress note:54-year-old female currently admitted to the hospital for COPD exacerbat ion with hypoxic/hypercapnic respiratory failure. Patient was requiring BiPAP yesterday and was luna sitioned over to nasal cannula which she has tolerated overnight. Patient was initially placed on 10 L nasal cannula and was subsequently able to be weaned to 6 L overnight.On camera patient is lying f lat, does not appear to be in any acute distress and sleeping comfortably.Vital signs reviewed. Hear t rate 74, pulse ox 90%, BP 125/60Labs/EMR/imaging reviewedAcute hypoxic/hypercapnic respiratory fail ure-Secondary to COPD exacerbation-Antibiotics per primary team which were escalated to Zosyn/Levaqui n yesterday. Given negative procalcitonin and improving leukocytosis can likely hold off on continui ng Zosyn at this time or continue until sputum cultures are finalized.-Recommend continuing scheduled nebs for now. Recommend switching Solu-Medrol to prednisone 40 daily-Agree with optimizing inhaler regimen and outpatient pulmonary follow-up.-Currently requiring 6 L O2, will need ambulatory pulse ox prior to discharge from the hospital as wellInterventions Major-Hypoxemia - evaluation and managemen t, Infection - evaluation and management, Respiratory failure - evaluation and managementElectronical ly Signed by: KEMAR BYERS) on 12/09/2019 08:45
--- NOTE | 2019-12-09 11:20 | PCM.PN ---
<Kamilah Giles - Last Filed: 12/09/19 11:16> - General Info Date of Service: 12/09/19 Subjective Update: feeling better, interval improvement since admission Functional Status: Reports: Pain Controlled - Review of Systems General: Reports: No Symptoms HEENT: Reports: No Symptoms Pulmonary: Reports: Shortness of Breath, Cough, Wheezing. Denies: Sputum Cardiovascular: Reports: No Symptoms Gastrointestinal: Reports: No Symptoms Genitourinary: Reports: No Symptoms Musculoskeletal: Reports: No Symptoms Skin: Reports: No Symptoms Neurological: Reports: No Symptoms - Patient Data Vitals - Most Recent: Last Vital Signs Temp 99.1 F 12/09/19 08:00 Pulse 66 12/08/19 02:00 Resp 11 L 12/09/19 10:00 BP 108/68 12/09/19 10:00 Pulse Ox 88 L 12/09/19 10:00 Weight - Most Recent: 115.394 kg I&O - Last 24 Hours: Intake & Output 12/08/19 12/09/19 12/09/19 22:59 06:59 14:59 Intake Total 2126 300 100 Output Total 650 1450 Balance 1476 -1150 100 Lab Results Last 24 Hours: Laboratory Results - last 24 hr 12/08/19 12/09/19 12/09/19 Range/Units 15:55 05:45 05:45 WBC 8.97 (4.0-11.0) K/uL RBC 5.01 (4.30-5.90) M/uL Hgb 15.4 (12.0-16.0) g/dL Hct 48.9 H (36.0-46.0) % MCV 97.6 (80.0-98.0) fL MCH 30.7 (27.0-32.0) pg MCHC 31.5 (31.0-37.0) g/dL RDW Std Deviation 49.5 (28.0-62.0) fl RDW Coeff of Vera 14 (11.0-15.0) % Plt Count 214 (150-400) K/uL MPV 10.80 (7.40-12.00) fL Neut % (Auto) 91.4 H (48.0-80.0) % Lymph % (Auto) 3.6 L (16.0-40.0) % [place] % (Auto) 5.0 (0.0-15.0) % Eos % (Auto) 0.0 (0.0-7.0) % Baso % (Auto) 0.0 (0.0-1.5) % Neut # (Auto) 8.2 H (1.4-5.7) K/uL Lymph # (Auto) 0.3 L (0.6-2.4) K/uL Hampton # (Auto) 0.5 (0.0-0.8) K/uL Eos # (Auto) 0.0 (0.0-0.7) K/uL Baso # (Auto) 0.0 (0.0-0.1) K/uL Nucleated RBC % 0.0 /100WBC Nucleated RBCs # 0 K/uL ABG pH 7.420 (7.35-7.45) ABG pCO2 61 H (35-45) mmHG ABG pO2 85 (75-100) mmHG ABG HCO3 39 H (22-26) mEq/L ABG Total CO2 34.2 ABG Base Excess 11.8 H (-2.0-2.0) Sodium 141 (136-145) mmol/L Potassium 4.7 (3.5-5.1) mmol/L Chloride 101 (98-107) mmol/L Carbon Dioxide 39.0 H (21.0-32.0) mmol/L BUN 18 (7.0-18.0) mg/dL Creatinine 0.8 (0.6-1.0) mg/dL Est Cr Clr Drug Dosing 77.01 mL/min Estimated GFR (MDRD) > 60.0 ml/min Glucose 143 H (74-106) mg/dL Calcium 8.3 L (8.5-10.1) mg/dL Magnesium 2.1 (1.8-2.4) mg/dL Twan Results Last 24 Hours: Microbiology 12/07/19 16:25 Gram Stain - Final Sputum - Expectorated Sputum Culture - Final Normal Respiratory Brenda Yeast Isolated Med Orders - Current: Current Medications Albuterol/Ipratropium (Duoneb 3.0-0.5 Mg/3 Ml) 3 ml NEB Q4HRRT [facility] Last Admin: 12/09/19 10:05 Dose: 3 ml Documented by: Aspirin (Aspirin) 81 mg PO DAILY [facility] Last Admin: 12/09/19 09:07 Dose: 81 mg Documented by: Diphtheria/Tetanus/Acell Pertussis (Boostrix) 0.5 ml IM .ONCE ONE Stop: 12/09/19 13:03 Heparin Sodium (Porcine) (Heparin Sodium) 5,000 units SUBCUT Q12H [facility] Last Admin: 12/09/19 07:38 Dose: 5,000 units Documented by: Levofloxacin/Dextrose 750 mg/ (Premix) 150 mls @ 100 mls/hr IV Q24H [facility] Last Admin: 12/08/19 18:01 Dose: 100 mls/hr Documented by: Methylprednisolone Sodium Succinate (Solu-Medrol) 40 mg IVPUSH Q12H [facility] Last Admin: 12/09/19 10:41 Dose: Not Given Documented by: Miscellaneous Information (Remove Patch) 1 ea TRDERM BEDTIME [facility] Last Admin: 12/08/19 21:43 Dose: 1 ea Documented by: Nicotine (Habitrol) 21 mg TRDERM DAILY [facility] Last Admin: 12/09/19 09:07 Dose: 21 mg Documented by: Omeprazole (Omeprazole) 20 mg PO BIDAC [facility] Last Admin: 12/09/19 07:38 Dose: 20 mg Documented by: Lisinopril 10 Mg Tab - Patient Own Medication 1 each PO DAILY [facility] Last Admin: 12/09/19 09:08 Dose: 1 each Documented by: Pneumococcal Polyvalent Vaccine (Pneumovax 23) 0.5 ml SUBCUT .ONCE ONE Stop: 12/09/19 13:02 Sodium Chloride (Saline Flush) 10 ml FLUSH ASDIRECTED PRN PRN Reason: Keep Vein Open Last Admin: 12/05/19 17:06 Dose: 10 ml Documented by: Sodium Chloride (Saline Flush) 2.5 ml FLUSH ASDIRECTED PRN PRN Reason: Keep Vein Open Last Admin: 12/05/19 17:06 Dose: 2.5 ml Documented by: Discontinued Medications Albuterol/Ipratropium (Duoneb 3.0-0.5 Mg/3 Ml) 3 ml NEB ONETIME ONE Stop: 12/05/19 16:50 Last Admin: 12/05/19 16:59 Dose: 3 ml Documented by: Albuterol/Ipratropium (Duoneb 3.0-0.5 Mg/3 Ml) 3 ml NEB Q4HRRT ONE Stop: 12/05/19 19:35 Last Admin: 12/05/19 21:04 Dose: 3 ml Documented by: Azithromycin (Zithromax) 500 mg PO ONETIME ONE Stop: 12/05/19 16:50 Last Admin: 12/05/19 17:00 Dose: 500 mg Documented by: Ceftriaxone Sodium/Dextrose 2 (gm/ Premix) 50 mls @ 100 mls/hr IV ONETIME ONE Stop: 12/05/19 18:18 Last Admin: 12/05/19 18:07 Dose: Not Given Documented by: Levofloxacin/Dextrose 750 mg/ (Premix) 150 mls @ 100 mls/hr IV ONETIME ONE Stop: 12/05/19 19:40 Last Admin: 12/05/19 19:10 Dose: 100 mls/hr Documented by: Levofloxacin/Dextrose 500 mg/ (Premix) 100 mls @ 100 mls/hr IV ONETIME [facility] Sodium Chloride (Normal Saline) 1,000 mls @ 100 mls/hr IV Q10H [facility] Last Admin: 12/08/19 09:35 Dose: Not Given Documented by: Sodium Chloride (Normal Saline) 1,000 mls @ 100 mls/hr IV ASDIRECTED [facility] Last Admin: 12/09/19 00:26 Dose: 100 mls/hr Documented by: Piperacillin Sod/Tazobactam (Sod 4.5 gm/ Sodium Chloride) 100 mls @ 100 mls/hr IV Q6H [facility] Last Admin: 12/09/19 10:12 Dose: 100 mls/hr Documented by: Iopamidol (Isovue-370 (76%)) 75 ml IVPUSH ONETIME STA Stop: 12/07/19 17:06 Last Admin: 12/07/19 17:06 Dose: 75 ml Documented by: Lisinopril (Prinivil) 10 mg PO DAILY [facility] Last Admin: 12/06/19 09:39 Dose: Not Given Documented by: Methylprednisolone Sodium Succinate (Solu-Medrol) 40 mg IVPUSH Q6H [facility] Last Admin: 12/08/19 08:30 Dose: 40 mg Documented by: Methylprednisolone Sodium Succinate (Solu-Medrol) 40 mg IVPUSH Q8H [facility] Last Admin: 12/09/19 09:06 Dose: 40 mg Documented by: Prednisone (Prednisone) 50 mg PO ONETIME ONE Stop: 12/05/19 16:50 Last Admin: 12/05/19 17:01 Dose: 50 mg Documented by: - Exam Quality Assessment: Supplemental Oxygen General: Alert, Oriented, Cooperative, No Acute Distress HEENT: EOMI Neck: Supple Lungs: Other (improvement of breath sounds; more wheezing ; but less respiratory effort ; : improvement ) Cardiovascular: Regular Rate, Regular Rhythm Neurological: No New Focal Deficit Psy/Mental Status: Alert, Normal Affect, Normal Mood Sepsis Event Note - Evaluation Sepsis Screening Result: No Definite Risk - Focused Exam Vital Signs: Vital Signs Temp Resp BP Pulse Ox 12/09/19 10:00 11 L 108/68 88 L 12/09/19 09:00 20 115/76 89 L 12/09/19 08:00 99.1 F 20 125/60 91 L 12/09/19 07:00 115/62 92 L 12/09/19 06:00 16 111/64 93 L 12/09/19 05:00 18 107/49 L 89 L 12/09/19 04:00 97.9 F 21 H 127/67 92 L 12/09/19 03:00 20 120/73 90 L 12/09/19 02:00 22 H 123/73 92 L 12/09/19 01:00 20 117/73 91 L 12/09/19 00:00 98.2 F 17 103/46 L 91 L Date Exam was Performed: 12/09/19 Time Exam was Performed: 11:16 - Problem List Review Problem List Initiated/Reviewed/Updated: Yes - My Orders Last 24 Hours: My Active Orders 12/09/19 10:30 methylPREDNISolone Sod Succ [Solu-MEDROL] 40 mg IVPUSH Q12H - Plan Plan:: This 54 year old female admitted with acute on chronic hypoxic/hypercapnic respiratory failure and COPD exacerbation 1. Acute hypoxic respiratory failure secondary to COPD exacerbation, CAP - Continue Bipap in evening only; wean o2 PRN; will keep in ICU until requiring less than 3-4 liters w. sats > 88% - CT angio ruled out PE, revealed possible bilateral lower lobe pneumonia. Negative procal: dc zosyn . - Continue Solumedrol, decrease to 40 Q12 hrs IV. (increasing interval) - Continue Scheduled Duonebs - Will need treatment with ICS/LAMA/LABA on discharge, arrange follow up with pulmonology - ECHO pending, to evaluate for cardiac source of hypoxia - Counseled at length this morning regarding tobacco cessation and chemical exposure with work. Continue Nicotine patch, remove at bedtime. 2. HTN: - Stable, continue Lisinopril and ASA VTE prophylaxis: Heparin Dispo: 2-3 days pending improvement <Mickey Palafox - Last Filed: 12/13/19 19:56> - Patient Data Vitals - Most Recent: Last Vital Signs Temp 36.1 C 12/11/19 07:54 Pulse 89 12/11/19 07:54 Resp 18 12/11/19 07:54 BP 133/65 12/11/19 07:54 Pulse Ox 91 L 12/11/19 07:54 Med Orders - Current: Current Medications Discontinued Medications Albuterol/Ipratropium (Duoneb 3.0-0.5 Mg/3 Ml) 3 ml NEB ONETIME ONE Stop: 12/05/19 16:50 Last Admin: 12/05/19 16:59 Dose: 3 ml Documented by: Albuterol/Ipratropium (Duoneb 3.0-0.5 Mg/3 Ml) 3 ml NEB Q4HRRT ONE Stop: 12/05/19 19:35 Last Admin: 12/05/19 21:04 Dose: 3 ml Documented by: Albuterol/Ipratropium (Duoneb 3.0-0.5 Mg/3 Ml) 3 ml NEB Q4HRRT [facility] Last Admin: 12/11/19 09:34 Dose: 3 ml Documented by: Aspirin (Aspirin) 81 mg PO DAILY [facility] Last Admin: 12/11/19 08:42 Dose: Not Given Documented by: Aspirin (Aspirin) 81 mg PO DAILY [facility] Last Admin: 12/11/19 08:24 Dose: 81 mg Documented by: Azithromycin (Zithromax) 500 mg PO ONETIME ONE Stop: 12/05/19 16:50 Last Admin: 12/05/19 17:00 Dose: 500 mg Documented by: Cholecalciferol (Vitamin D3) 50 mcg PO DAILY [facility] Last Admin: 12/11/19 08:30 Dose: Not Given Documented by: Diphtheria/Tetanus/Acell Pertussis (Boostrix) 0.5 ml IM .ONCE ONE Stop: 06/20/20 13:03 Heparin Sodium (Porcine) (Heparin Sodium) 5,000 units SUBCUT Q12H [facility] Last Admin: 12/11/19 07:02 Dose: 5,000 units Documented by: Ceftriaxone Sodium/Dextrose 2 (gm/ Premix) 50 mls @ 100 mls/hr IV ONETIME ONE Stop: 12/05/19 18:18 Last Admin: 12/05/19 18:07 Dose: Not Given Documented by: Levofloxacin/Dextrose 750 mg/ (Premix) 150 mls @ 100 mls/hr IV ONETIME ONE Stop: 12/05/19 19:40 Last Admin: 12/05/19 19:10 Dose: 100 mls/hr Documented by: Levofloxacin/Dextrose 500 mg/ (Premix) 100 mls @ 100 mls/hr IV ONETIME [facility] Levofloxacin/Dextrose 750 mg/ (Premix) 150 mls @ 100 mls/hr IV Q24H [facility] Last Admin: 12/10/19 18:28 Dose: 100 mls/hr Documented by: Sodium Chloride (Normal Saline) 1,000 mls @ 100 mls/hr IV Q10H [facility] Last Admin: 12/08/19 09:35 Dose: Not Given Documented by: Sodium Chloride (Normal Saline) 1,000 mls @ 100 mls/hr IV ASDIRECTED [facility] Last Admin: 12/09/19 00:26 Dose: 100 mls/hr Documented by: Piperacillin Sod/Tazobactam (Sod 4.5 gm/ Sodium Chloride) 100 mls @ 100 mls/hr IV Q6H [facility] Last Admin: 12/09/19 10:12 Dose: 100 mls/hr Documented by: Iopamidol (Isovue-370 (76%)) 75 ml IVPUSH ONETIME STA Stop: 12/07/19 17:06 Last Admin: 12/07/19 17:06 Dose: 75 ml Documented by: Lisinopril (Prinivil) 10 mg PO DAILY [facility] Last Admin: 12/06/19 09:39 Dose: Not Given Documented by: Methylprednisolone Sodium Succinate (Solu-Medrol) 40 mg IVPUSH Q6H [facility] Last Admin: 12/08/19 08:30 Dose: 40 mg Documented by: Methylprednisolone Sodium Succinate (Solu-Medrol) 40 mg IVPUSH Q8H [facility] Last Admin: 12/09/19 09:06 Dose: 40 mg Documented by: Methylprednisolone Sodium Succinate (Solu-Medrol) 40 mg IVPUSH Q12H [facility] Last Admin: 12/10/19 10:08 Dose: 40 mg Documented by: Miscellaneous Information (Remove Patch) 1 ea TRDERM BEDTIME [facility] Last Admin: 12/10/19 21:08 Dose: Not Given Documented by: Multivitamins/Minerals/Vitamin C (Tab-A-Cheo) 1 tab PO DAILY [facility] Last Admin: 12/11/19 08:29 Dose: Not Given Documented by: Nicotine (Habitrol) 21 mg TRDERM DAILY [facility] Last Admin: 12/11/19 08:27 Dose: Not Given Documented by: Omeprazole (Omeprazole) 20 mg PO BIDAC [facility] Last Admin: 12/11/19 07:02 Dose: 20 mg Documented by: Lisinopril 10 Mg Tab - Patient Own Medication 1 each PO DAILY [facility] Last Admin: 12/11/19 08:26 Dose: 1 each Documented by: [Vitamin A] 2,400 (Mcg) 1 each PO DAILY [facility] Last Admin: 12/11/19 08:27 Dose: Not Given Documented by: [Vitamin E] 180 Mg 1 each PO DAILY [facility] Last Admin: 12/11/19 08:27 Dose: Not Given Documented by: Pneumococcal Polyvalent Vaccine (Pneumovax 23) 0.5 ml SUBCUT .ONCE ONE Stop: 12/09/19 13:02 Prednisone (Prednisone) 50 mg PO ONETIME ONE Stop: 12/05/19 16:50 Last Admin: 12/05/19 17:01 Dose: 50 mg Documented by: Prednisone (Prednisone) 40 mg PO WITHBREAKFAST [facility] Last Admin: 12/11/19 08:24 Dose: 40 mg Documented by: Sodium Chloride (Saline Flush) 10 ml FLUSH ASDIRECTED PRN PRN Reason: Keep Vein Open Last Admin: 12/05/19 17:06 Dose: 10 ml Documented by: Sodium Chloride (Saline Flush) 2.5 ml FLUSH ASDIRECTED PRN PRN Reason: Keep Vein Open Last Admin: 12/05/19 17:06 Dose: 2.5 ml Documented by: Sepsis Event Note - Focused Exam Date Exam was Performed: 12/13/19 Time Exam was Performed: 19:56 - Problem List & Annotations (1) Acute on chronic respiratory failure with hypoxia and hypercapnia SNOMED Code(s): 48326957924021 Code(s): J96.21 - ACUTE AND CHRONIC RESPIRATORY FAILURE WITH HYPOXIA; J96.22 - ACUTE AND CHRONIC RESPIRATORY FAILURE WITH HYPERCAPNIA Status: Acute (2) COPD exacerbation SNOMED Code(s): 011781047 Code(s): J44.1 - CHRONIC OBSTRUCTIVE PULMONARY DISEASE W (ACUTE) EXACERBATION Status: Acute (3) Pneumonia of both lower lobes SNOMED Code(s): 229853117, 674726709 Code(s): J18.9 - PNEUMONIA, UNSPECIFIED ORGANISM Status: Acute (4) Obesity SNOMED Code(s): 335193612, 729943451 Code(s): E66.9 - OBESITY, UNSPECIFIED Status: Chronic (5) Tobacco use SNOMED Code(s): 744117066 Code(s): Z72.0 - TOBACCO USE Status: Chronic - Plan Plan:: I have seen and evaluated the patient and agree with the residents note unless specified in my note
[2019-12-09] MEDS ORDERED: Pneumococcal Polyvalent-23 Vaccine 0.5 ML SDV SUBCUT ONE (13:01)
[2019-12-09] MEDS ORDERED: Diphtheria,Pertussis(Acell),Tetanus Vaccine 0.5 ML Syringe IM ONE (13:02)
[2019-12-09] MEDS: Levofloxacin/Dextrose 5%-Water 750 MG in Premix Bag 1 BAG IV SCH (18:11)
[2019-12-10] MEDS: Albuterol/Ipratropium 3.0-0.5 MG/3 ML Neb Soln NEB SCH ×6 (01:40→22:23)
[2019-12-10 06:30] LABS: BLOOD UREA NITROGEN,BUN 15 mg/dL (7.0-18.0); CARBON DIOXIDE,CO2 36.2 mmol/L (21.0-32.0); CHLORIDE,CL 99 mmol/L (98-107); GLUCOSE RANDOM 143 mg/dL (74-106); POTASSIUM,K 4.4 mmol/L (3.5-5.1); SODIUM,NA 138 mmol/L (136-145)
[2019-12-10] MEDS: Heparin Sodium 5,000 Units/ML Vial SUBCUT SCH ×2 (07:23→19:26)
[2019-12-10] MEDS: Omeprazole 20 MG Cap.CR PO SCH ×2 (07:23→16:51)
[2019-12-10] MEDS: Aspirin 81 MG Tab.Chew PO SCH (08:58)
[2019-12-10] MEDS: Nicotine 21 MG/24 Hr Patch TRDERM SCH (09:00)
[2019-12-10] MEDS: LISINOPRIL 10 MG PO SCH (09:07)
--- NOTE | 2019-12-10 09:36 | PN ---
THC Physician - Brief Progress [id number]/21/2020 09:35[facility] Mikey Arreguin, SUSANNE - MWN (BABITA) - [facility]ENTERISAIPILI SPARROWStephaniDate of Service 12/10/2019 09:35HPI/Event s of Note eICU Progress [id number] admitted for respiratory failure attributed to AECOPD. History obtain ed from review of EMR.Camera exam: Laying in bed talking on cellphone. Vitals monitor reviewed.Labs: reviewedRadiology: reviewedeICU Impression and Recommendations:Respiratory failure attributed to exac erbation of COPD, improvingContinue to wean O2 as toleratedBPAP as needed for work of breathingConsid er transition from IV methylprednisolone to oral prednisone (40mg daily)DVT and GI prophylaxis as lloyd ropriate.We are available to assist in further clarification, or implementation of any of the above r ecommendations if desired by primary service.Thank you for allowing us to participate in the care of this patient.The above note transcribed with the assistance of dictation software. Please excuse any errors.Interventions Major-Respiratory failure - evaluation and management
[2019-12-10] MEDS: methylPREDNISolone Sodium Succinate 40 MG/1 ML SDV IVPUSH SCH (10:08)
--- NOTE | 2019-12-10 10:50 | PCM.PN ---
- General Info Date of Service: 12/10/19 Admission Dx/Problem (Free Text): Admission Diagnosis/Problem Admission Diagnosis/Problem COPD, Severe chronic obstructive pulmonary disease Subjective Update: feeling better, on nasal cannula, no distress, eating breakfast Functional Status: Reports: Pain Controlled, Tolerating Diet, Ambulating, Urinating - Review of Systems General: Denies: Fever, Weakness, Fatigue HEENT: Denies: Dysphasia, Ear Pain Pulmonary: Reports: Cough, Sputum. Denies: Shortness of Breath, Pleuritic Chest Pain Cardiovascular: Reports: Dyspnea on Exertion. Denies: Chest Pain, Palpitations Gastrointestinal: Denies: Abdominal Pain, Constipation, Decreased Appetite Genitourinary: Denies: Dysuria, Frequency, Burning Musculoskeletal: Denies: Neck Pain, Shoulder Pain Skin: Denies: Cyanosis, Jaundice, Mottled Neurological: Denies: Dizziness, Headache - Patient Data Vitals - Most Recent: Last Vital Signs Temp 36.5 C 12/10/19 08:00 Pulse 66 12/08/19 02:00 Resp 21 H 12/10/19 09:00 BP 136/81 12/10/19 08:00 Pulse Ox 91 L 12/10/19 09:00 Weight - Most Recent: 110.54 kg I&O - Last 24 Hours: Intake & Output 12/09/19 12/10/19 12/10/19 22:59 06:59 14:59 Intake Total 900 1050 Output Total 1400 2450 Balance -500 -1400 Lab Results Last 24 Hours: Laboratory Results - last 24 hr 12/10/19 12/10/19 Range/Units 05:45 05:45 WBC 9.03 (4.0-11.0) K/uL RBC 4.91 (4.30-5.90) M/uL Hgb 14.9 (12.0-16.0) g/dL Hct 47.0 H (36.0-46.0) % MCV 95.7 (80.0-98.0) fL MCH 30.3 (27.0-32.0) pg MCHC 31.7 (31.0-37.0) g/dL RDW Std Deviation 49.3 (28.0-62.0) fl RDW Coeff of Vera 14 (11.0-15.0) % Plt Count 232 (150-400) K/uL MPV 10.80 (7.40-12.00) fL Neut % (Auto) 86.1 H (48.0-80.0) % Lymph % (Auto) 6.0 L (16.0-40.0) % Wilkinson % (Auto) 7.9 (0.0-15.0) % Eos % (Auto) 0.0 (0.0-7.0) % Baso % (Auto) 0.0 (0.0-1.5) % Neut # (Auto) 7.8 H (1.4-5.7) K/uL Lymph # (Auto) 0.5 L (0.6-2.4) K/uL Wilkinson # (Auto) 0.7 (0.0-0.8) K/uL Eos # (Auto) 0.0 (0.0-0.7) K/uL Baso # (Auto) 0.0 (0.0-0.1) K/uL Nucleated RBC % 0.0 /100WBC Nucleated RBCs # 0 K/uL Sodium 138 (136-145) mmol/L Potassium 4.4 (3.5-5.1) mmol/L Chloride 99 (98-107) mmol/L Carbon Dioxide 36.2 H (21.0-32.0) mmol/L BUN 15 (7.0-18.0) mg/dL Creatinine 0.6 (0.6-1.0) mg/dL Est Cr Clr Drug Dosing 102.68 mL/min Estimated GFR (MDRD) > 60.0 ml/min Glucose 143 H (74-106) mg/dL Calcium 8.1 L (8.5-10.1) mg/dL Total Bilirubin 0.6 (0.2-1.0) mg/dL AST 13 L (15-37) IU/L ALT 32 (14-63) IU/L Alkaline Phosphatase 74 (46-116) U/L Total Protein 5.5 L (6.4-8.2) g/dL Albumin 2.7 L (3.4-5.0) g/dL Globulin 2.8 (2.6-4.0) g/dL Albumin/Globulin Ratio 1.0 (0.9-1.6) Twan Results Last 24 Hours: Microbiology 12/07/19 16:25 Gram Stain - Final Sputum - Expectorated Sputum Culture - Final Normal Respiratory Brenda Yeast Isolated Med Orders - Current: Current Medications Albuterol/Ipratropium (Duoneb 3.0-0.5 Mg/3 Ml) 3 ml NEB Q4HRRT COUNTS INCLUDE 234 BEDS AT THE [facility] Last Admin: 12/10/19 10:08 Dose: 3 ml Documented by: Aspirin (Aspirin) 81 mg PO DAILY COUNTS INCLUDE 234 BEDS AT THE [facility] Last Admin: 12/10/19 08:58 Dose: 81 mg Documented by: Heparin Sodium (Porcine) (Heparin Sodium) 5,000 units SUBCUT Q12H COUNTS INCLUDE 234 BEDS AT THE [facility] Last Admin: 12/10/19 07:23 Dose: 5,000 units Documented by: Levofloxacin/Dextrose 750 mg/ (Premix) 150 mls @ 100 mls/hr IV Q24H COUNTS INCLUDE 234 BEDS AT THE [facility] Last Admin: 12/09/19 18:11 Dose: 100 mls/hr Documented by: Methylprednisolone Sodium Succinate (Solu-Medrol) 40 mg IVPUSH Q12H COUNTS INCLUDE 234 BEDS AT THE [facility] Last Admin: 12/10/19 10:08 Dose: 40 mg Documented by: Miscellaneous Information (Remove Patch) 1 ea TRDERM BEDTIME COUNTS INCLUDE 234 BEDS AT THE [facility] Last Admin: 12/09/19 21:42 Dose: 1 ea Documented by: Nicotine (Habitrol) 21 mg TRDERM DAILY COUNTS INCLUDE 234 BEDS AT THE [facility] Last Admin: 12/10/19 09:00 Dose: Not Given Documented by: Omeprazole (Omeprazole) 20 mg PO BIDAC COUNTS INCLUDE 234 BEDS AT THE [facility] Last Admin: 12/10/19 07:23 Dose: 20 mg Documented by: Lisinopril 10 Mg Tab - Patient Own Medication 1 each PO DAILY COUNTS INCLUDE 234 BEDS AT THE [facility] Last Admin: 12/10/19 09:07 Dose: 1 each Documented by: Sodium Chloride (Saline Flush) 10 ml FLUSH ASDIRECTED PRN PRN Reason: Keep Vein Open Last Admin: 12/05/19 17:06 Dose: 10 ml Documented by: Sodium Chloride (Saline Flush) 2.5 ml FLUSH ASDIRECTED PRN PRN Reason: Keep Vein Open Last Admin: 12/05/19 17:06 Dose: 2.5 ml Documented by: Discontinued Medications Albuterol/Ipratropium (Duoneb 3.0-0.5 Mg/3 Ml) 3 ml NEB ONETIME ONE Stop: 12/05/19 16:50 Last Admin: 12/05/19 16:59 Dose: 3 ml Documented by: Albuterol/Ipratropium (Duoneb 3.0-0.5 Mg/3 Ml) 3 ml NEB Q4HRRT ONE Stop: 12/05/19 19:35 Last Admin: 12/05/19 21:04 Dose: 3 ml Documented by: Azithromycin (Zithromax) 500 mg PO ONETIME ONE Stop: 12/05/19 16:50 Last Admin: 12/05/19 17:00 Dose: 500 mg Documented by: Diphtheria/Tetanus/Acell Pertussis (Boostrix) 0.5 ml IM .ONCE ONE Stop: 12/09/19 13:03 Ceftriaxone Sodium/Dextrose 2 (gm/ Premix) 50 mls @ 100 mls/hr IV ONETIME ONE Stop: 12/05/19 18:18 Last Admin: 12/05/19 18:07 Dose: Not Given Documented by: Levofloxacin/Dextrose 750 mg/ (Premix) 150 mls @ 100 mls/hr IV ONETIME ONE Stop: 12/05/19 19:40 Last Admin: 12/05/19 19:10 Dose: 100 mls/hr Documented by: Levofloxacin/Dextrose 500 mg/ (Premix) 100 mls @ 100 mls/hr IV ONETIME COUNTS INCLUDE 234 BEDS AT THE [facility] Sodium Chloride (Normal Saline) 1,000 mls @ 100 mls/hr IV Q10H COUNTS INCLUDE 234 BEDS AT THE [facility] Last Admin: 12/08/19 09:35 Dose: Not Given Documented by: Sodium Chloride (Normal Saline) 1,000 mls @ 100 mls/hr IV ASDIRECTED COUNTS INCLUDE 234 BEDS AT THE [facility] Last Admin: 12/09/19 00:26 Dose: 100 mls/hr Documented by: Piperacillin Sod/Tazobactam (Sod 4.5 gm/ Sodium Chloride) 100 mls @ 100 mls/hr IV Q6H COUNTS INCLUDE 234 BEDS AT THE [facility] Last Admin: 12/09/19 10:12 Dose: 100 mls/hr Documented by: Iopamidol (Isovue-370 (76%)) 75 ml IVPUSH ONETIME STA Stop: 12/07/19 17:06 Last Admin: 12/07/19 17:06 Dose: 75 ml Documented by: Lisinopril (Prinivil) 10 mg PO DAILY COUNTS INCLUDE 234 BEDS AT THE [facility] Last Admin: 12/06/19 09:39 Dose: Not Given Documented by: Methylprednisolone Sodium Succinate (Solu-Medrol) 40 mg IVPUSH Q6H COUNTS INCLUDE 234 BEDS AT THE [facility] Last Admin: 12/08/19 08:30 Dose: 40 mg Documented by: Methylprednisolone Sodium Succinate (Solu-Medrol) 40 mg IVPUSH Q8H KOLE Last Admin: 12/09/19 09:06 Dose: 40 mg Documented by: Pneumococcal Polyvalent Vaccine (Pneumovax 23) 0.5 ml SUBCUT .ONCE ONE Stop: 12/09/19 13:02 Prednisone (Prednisone) 50 mg PO ONETIME ONE Stop: 12/05/19 16:50 Last Admin: 12/05/19 17:01 Dose: 50 mg Documented by: - Exam Quality Assessment: Supplemental Oxygen General: Alert, Oriented Neck: Supple, Trachea Midline Lungs: Normal Respiratory Effort, Wheezing. No: Clear to Auscultation, Rales Cardiovascular: Regular Rate, Regular Rhythm, No Murmurs. No: Irregular Rhythm, Bradycardia GI/Abdominal Exam: Normal Bowel Sounds, Soft, Non-Tender Extremities: Normal Inspection, Normal Range of Motion Sepsis Event Note - Evaluation Sepsis Screening Result: No Definite Risk - Focused Exam Vital Signs: Vital Signs Temp Resp BP Pulse Ox 12/10/19 09:00 21 H 91 L 12/10/19 08:00 36.5 C 19 136/81 92 L 12/10/19 07:00 21 H 127/73 91 L 12/10/19 06:00 13 125/69 91 L 12/10/19 05:00 36.4 C 14 111/65 92 L 12/10/19 04:00 22 H 122/75 89 L 12/10/19 03:00 19 121/73 91 L 12/10/19 02:00 13 123/71 90 L 12/10/19 01:00 24 H 124/77 88 L 12/10/19 00:00 36.6 C 12 134/77 91 L 12/09/19 23:00 24 H 115/77 91 L Date Exam was Performed: 12/10/19 Time Exam was Performed: 11:55 - Problem List & Annotations (1) Acute on chronic respiratory failure with hypoxia and hypercapnia SNOMED Code(s): 71084362384693 Code(s): J96.21 - ACUTE AND CHRONIC RESPIRATORY FAILURE WITH HYPOXIA; J96.22 - ACUTE AND CHRONIC RESPIRATORY FAILURE WITH HYPERCAPNIA Status: Acute Current Visit: Yes (2) COPD exacerbation SNOMED Code(s): 125733443 Code(s): J44.1 - CHRONIC OBSTRUCTIVE PULMONARY DISEASE W (ACUTE) EXACERBATION Status: Acute Current Visit: Yes (3) Pneumonia of both lower lobes SNOMED Code(s): 930955833, 160182198 Code(s): J18.9 - PNEUMONIA, UNSPECIFIED ORGANISM Status: Acute Current Visit: Yes (4) Obesity SNOMED Code(s): 234712396, 898609201 Code(s): E66.9 - OBESITY, UNSPECIFIED Status: Chronic Current Visit: Yes (5) Tobacco use SNOMED Code(s): 314015356 Code(s): Z72.0 - TOBACCO USE Status: Chronic Current Visit: Yes - Problem List Review Problem List Initiated/Reviewed/Updated: Yes - Plan Plan:: This 54 year old female admitted with acute on chronic hypoxic/hypercapnic respiratory failure and COPD exacerbation 1. Acute hypoxic respiratory failure secondary to COPD exacerbation, CAP - succesfully weaned off high flow to nasal cannula o2 , cont Bipap as needed - cont IV antibiotics - switch steroids to PO - Continue Scheduled Duonebs - Will need treatment with ICS/LAMA/LABA on discharge, arrange follow up with pulmonology - ECHO pending, to evaluate for cardiac source of hypoxia - Counseled at length this morning regarding tobacco cessation and chemical exposure with work. Continue Nicotine patch, remove at bedtime. 2. HTN: - Stable, continue Lisinopril and ASA VTE prophylaxis: Heparin Downgrade to med-surg tele. possible dc ladi.
[2019-12-10] MEDS: Levofloxacin/Dextrose 5%-Water 750 MG in Premix Bag 1 BAG IV SCH (18:28)
[2019-12-11] MEDS: Albuterol/Ipratropium 3.0-0.5 MG/3 ML Neb Soln NEB SCH ×3 (01:56→09:34)
[2019-12-11] MEDS: Heparin Sodium 5,000 Units/ML Vial SUBCUT SCH (07:02)
[2019-12-11] MEDS: Omeprazole 20 MG Cap.CR PO SCH (07:02)
[2019-12-11 07:09] LABS: BLOOD UREA NITROGEN,BUN 16 mg/dL (7.0-18.0); CARBON DIOXIDE,CO2 35.3 mmol/L (21.0-32.0); CHLORIDE,CL 101 mmol/L (98-107); GLUCOSE RANDOM 93 mg/dL (74-106); POTASSIUM,K 3.9 mmol/L (3.5-5.1); SODIUM,NA 139 mmol/L (136-145)
[2019-12-11 07:58] VITALS: BP 133/65; PULSE 89
[2019-12-11] MEDS ORDERED: predniSONE 20 MG Tab PO SCH (08:00)
[2019-12-11] MEDS: Multivitamin Tab PO SCH ×2 (08:24→08:29)
[2019-12-11] MEDS: Cholecalciferol (Vitamin D3) 25 MCG Tab PO SCH ×2 (08:25→08:30)
[2019-12-11] MEDS: LISINOPRIL 10 MG PO SCH (08:26)
[2019-12-11] MEDS: Nicotine 21 MG/24 Hr Patch TRDERM SCH (08:27)
[2019-12-11] MEDS: Aspirin 81 MG Tab.Chew PO SCH (08:42)
[2019-12-11] MEDS ORDERED: VITAMIN E 180 MG PO SCH (09:00)
[2019-12-11] MEDS ORDERED: Aspirin 81 MG Tab.Chew PO SCH (09:00)
[2019-12-11] MEDS ORDERED: VITAMIN A 2400 MCG PO SCH (09:00)
--- NOTE | 2019-12-11 12:33 | PCM.DCSUM1 ---
<Kamilah Giles - Last Filed: 12/11/19 13:48> Discharge Summary - Hospital Course Free Text/Narrative:: 54 y.o female w. PMH Of sever COPD requiring 2 Liters at night, 2 PPD tobacco abuse >15 years, obesity; presented w. increasing SOB; pt. 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 Mentions for the past couple of days of having to use her at-night supplemental o2 but was becoming increasingly fatigued. ED : presented to ED w. increasing fatigue, cyanotic lips and pale pallor; requiring 9L o2, CXR: small RLL CAP, no fevers and or chills. Duo nebs, azithromycin and Levaquin started. PO prednisone 50 mg also given., Aditted for COPD Bedside: less respiratory distress now on 9 liters; still tight BS. No sputum production hospital course: pt. on day 1 of admission was requiring incrasing O2 and was not able to wean down; repeat abg showed hypercapnia w. wincreasing Co2 serum; transferred to ICU and started on Bipap. Pt. contionue on 14 methylprednisolon, levaquin 750 daily. ECHO ordered: results pending. COncners for PE; CT angio showed small b/l infiltrates; expanded coverage w. zosyn. SPutum culture +for ormal jessica;. pt ultimately weaned off bipap during day, continue on bipap at night. Weaned o2 down to 2 Liters on day. Walking trial showed o2 sats at 84%; home o2 continueous order placed. pt .requesting discharge. Advised to stop smoking. Discharge with new inhaler Trelegy; advised to discontinue Brovana. continue albuterol PRN. Prednsione taper x 12 days alos provided. Outpatinet PFT, home sleep study rx provided. pt in stable conditon. Discharged w. follow up placed. - Discharge Data Discharge Date: 12/11/19 Discharge Disposition: Home, Self-Care 01 Condition: Stable - Referral to Home Health Primary Care Physician: Sanjuanita Vasquez, DO - Discharge Plan Prescriptions/Med Rec: predniSONE [Prednisone] 10 mg PO DAILY 12 Days #1 tab.ds.pk predniSONE [Prednisone] 5 mg PO DAILY 14 Days #14 tablet Fluticasone/Umeclidin/Vilanter [Trelegy Ellipta 100-62.5-25 MCG] 1 puff INH ONETIME 30 Days #1 inhaler Home Medications: Home Meds Albuterol Sulfate 2.5 mg IH Q4H PRN 12/05/19 [History] Albuterol [Ventolin HFA] 18 gm .XX DAILY 12/05/19 [History] Aspirin 81 mg PO DAILY 12/05/19 [History] Cholecalciferol (Vitamin D3) [Vitamin D3] 50 mcg PO DAILY 12/05/19 [History] Multivitamin [Multi-Vitamin Daily] 1 tab PO DAILY 12/05/19 [History] Vitamin E (Dl,Tocopheryl Acet) [Vitamin E] 180 mg PO DAILY 12/05/19 [History] lisinopriL [Lisinopril] 10 mg PO DAILY 12/05/19 [History] Fluticasone/Umeclidin/Vilanter [Trelegy Ellipta 100-62.5-25 MCG] 1 puff INH ONETIME 30 Days #1 inhaler 12/11/19 [Rx] Nicotine [Habitrol] 21 mg TRDERM DAILY patch 12/11/19 [Rx] Omeprazole 20 mg PO BIDAC cap.cr 12/11/19 [Rx] predniSONE [Prednisone] 5 mg PO DAILY 14 Days #14 tablet 12/11/19 [Rx] predniSONE [Prednisone] 10 mg PO DAILY 12 Days #1 tab.ds.pk 12/11/19 [Rx] Patient Handouts: Chronic Obstructive Pulmonary Disease, [id number], Home Oxygen Use, Adult, Prednisone tablets, Fluticasone; Umeclidinium; Vilanterol inhalation powder Referrals: Sanjuanita Vasquez DO [Primary Care Provider] - 12/14/19 10:45 am (Please wear a mask or face cover to your appointment.) - Discharge Summary/Plan Comment DC Time >30 min.: No - Patient Data Vitals - Most Recent: Last Vital Signs Temp 96.9 F 12/11/19 07:54 Pulse 89 12/11/19 07:54 Resp 18 12/11/19 07:54 BP 133/65 12/11/19 07:54 Pulse Ox 91 L 12/11/19 07:54 Weight - Most Recent: 111.9 kg I&O - Last 24 hours: Intake & Output 12/10/19 12/11/19 12/11/19 22:59 06:59 14:59 Intake Total 600 Output Total 1050 Balance -450 Lab Results - Last 24 hrs: Laboratory Results - last 24 hr 12/07/19 12/11/19 12/11/19 Range/Units 13:17 06:35 06:35 WBC 10.35 (4.0-11.0) K/uL RBC 4.88 (4.30-5.90) M/uL Hgb 14.9 (12.0-16.0) g/dL Hct 46.3 H (36.0-46.0) % MCV 94.9 (80.0-98.0) fL MCH 30.5 (27.0-32.0) pg MCHC 32.2 (31.0-37.0) g/dL RDW Std Deviation 48.5 (28.0-62.0) fl RDW Coeff of Vear 14 (11.0-15.0) % Plt Count 187 (150-400) K/uL MPV 10.60 (7.40-12.00) fL Neut % (Auto) 71.3 (48.0-80.0) % Lymph % (Auto) 19.7 (16.0-40.0) % Morton % (Auto) 8.2 (0.0-15.0) % Eos % (Auto) 0.7 (0.0-7.0) % Baso % (Auto) 0.1 (0.0-1.5) % Neut # (Auto) 7.4 H (1.4-5.7) K/uL Lymph # (Auto) 2.0 (0.6-2.4) K/uL Morton # (Auto) 0.9 H (0.0-0.8) K/uL Eos # (Auto) 0.1 (0.0-0.7) K/uL Baso # (Auto) 0.0 (0.0-0.1) K/uL Nucleated RBC % 0.0 /100WBC Nucleated RBCs # 0 K/uL Sodium 139 (136-145) mmol/L Potassium 3.9 (3.5-5.1) mmol/L Chloride 101 (98-107) mmol/L Carbon Dioxide 35.3 H (21.0-32.0) mmol/L BUN 16 (7.0-18.0) mg/dL Creatinine 0.5 L (0.6-1.0) mg/dL Est Cr Clr Drug Dosing 123.21 mL/min Estimated GFR (MDRD) > 60.0 ml/min Glucose 93 (74-106) mg/dL Calcium 8.4 L (8.5-10.1) mg/dL Phosphorus 4.3 (2.6-4.7) mg/dL Magnesium 2.0 (1.8-2.4) mg/dL Alternar. alternata IgE <0.10 (Class 0) kU/L Aspergillus fumigatus <0.10 (Class 0) kU/L Cladosporium herbarum <0.10 (Class 0) kU/L D. farinae Allergen <0.10 (Class 0) kU/L D. pteronyssinus IgE Cl <0.10 (Class 0) kU/L P.chrysogenum Allergen <0.10 (Class 0) kU/L French [place]m IgE Ab <0.10 (Class 0) kU/L [place] Tree Allrg <0.10 (Class 0) kU/L Maple ([place]) Allg <0.10 (Class 0) kU/L [place] Tree Allerg <0.10 (Class 0) kU/L [place] Tree Allerg <0.10 (Class 0) kU/L [place] Ag IgE Ad <0.10 (Class 0) kU/L [place] Tree Allerg <0.10 (Class 0) kU/L [place] Grass Allergen <0.10 (Class 0) kU/L [place] Grass IgE Ab <0.10 (Class 0) kU/L Comm Ragweed Allrg IgE <0.10 (Class 0) kU/L [place] Allerg IgE Ab <0.10 (Class 0) kU/L German Thistle IgE Ab <0.10 (Class 0) kU/L Sheep [place] IgE Ab <0.10 (Class 0) kU/L Cat Dander Allergen <0.10 (Class 0) kU/L Dog Dander Allergen <0.10 (Class 0) kU/L Syriac Cockroach IgE <0.10 (Class 0) kU/L Allergen Note Comment IgE 26 (6-495) IU/mL Med Orders - Current: Current Medications Albuterol/Ipratropium (Duoneb 3.0-0.5 Mg/3 Ml) 3 ml NEB Q4HRRT [facility] Last Admin: 12/11/19 09:34 Dose: 3 ml Documented by: Aspirin (Aspirin) 81 mg PO DAILY [facility] Last Admin: 12/11/19 08:42 Dose: Not Given Documented by: Cholecalciferol (Vitamin D3) 50 mcg PO DAILY [facility] Last Admin: 12/11/19 08:30 Dose: Not Given Documented by: Heparin Sodium (Porcine) (Heparin Sodium) 5,000 units SUBCUT Q12H [facility] Last Admin: 12/11/19 07:02 Dose: 5,000 units Documented by: Levofloxacin/Dextrose 750 mg/ (Premix) 150 mls @ 100 mls/hr IV Q24H [facility] Last Admin: 12/10/19 18:28 Dose: 100 mls/hr Documented by: Miscellaneous Information (Remove Patch) 1 ea TRDERM BEDTIME [facility] Last Admin: 12/10/19 21:08 Dose: Not Given Documented by: Multivitamins/Minerals/Vitamin C (Tab-A-Cheo) 1 tab PO DAILY [facility] Last Admin: 12/11/19 08:29 Dose: Not Given Documented by: Nicotine (Habitrol) 21 mg TRDERM DAILY [facility] Last Admin: 12/11/19 08:27 Dose: Not Given Documented by: Omeprazole (Omeprazole) 20 mg PO BIDAC [facility] Last Admin: 12/11/19 07:02 Dose: 20 mg Documented by: Lisinopril 10 Mg Tab - Patient Own Medication 1 each PO DAILY [facility] Last Admin: 12/11/19 08:26 Dose: 1 each Documented by: [Vitamin A] 2,400 (Mcg) 1 each PO DAILY [facility] Last Admin: 12/11/19 08:27 Dose: Not Given Documented by: [Vitamin E] 180 Mg 1 each PO DAILY [facility] Last Admin: 12/11/19 08:27 Dose: Not Given Documented by: Prednisone (Prednisone) 40 mg PO WITHBREAKFAST [facility] Last Admin: 12/11/19 08:24 Dose: 40 mg Documented by: Sodium Chloride (Saline Flush) 10 ml FLUSH ASDIRECTED PRN PRN Reason: Keep Vein Open Last Admin: 12/05/19 17:06 Dose: 10 ml Documented by: Sodium Chloride (Saline Flush) 2.5 ml FLUSH ASDIRECTED PRN PRN Reason: Keep Vein Open Last Admin: 12/05/19 17:06 Dose: 2.5 ml Documented by: Discontinued Medications Albuterol/Ipratropium (Duoneb 3.0-0.5 Mg/3 Ml) 3 ml NEB ONETIME ONE Stop: 12/05/19 16:50 Last Admin: 12/05/19 16:59 Dose: 3 ml Documented by: Albuterol/Ipratropium (Duoneb 3.0-0.5 Mg/3 Ml) 3 ml NEB Q4HRRT ONE Stop: 12/05/19 19:35 Last Admin: 12/05/19 21:04 Dose: 3 ml Documented by: Aspirin (Aspirin) 81 mg PO DAILY [facility] Last Admin: 12/11/19 08:24 Dose: 81 mg Documented by: Azithromycin (Zithromax) 500 mg PO ONETIME ONE Stop: 12/05/19 16:50 Last Admin: 12/05/19 17:00 Dose: 500 mg Documented by: Diphtheria/Tetanus/Acell Pertussis (Boostrix) 0.5 ml IM .ONCE ONE Stop: 12/09/19 13:03 Ceftriaxone Sodium/Dextrose 2 (gm/ Premix) 50 mls @ 100 mls/hr IV ONETIME ONE Stop: 12/05/19 18:18 Last Admin: 12/05/19 18:07 Dose: Not Given Documented by: Levofloxacin/Dextrose 750 mg/ (Premix) 150 mls @ 100 mls/hr IV ONETIME ONE Stop: 12/05/19 19:40 Last Admin: 12/05/19 19:10 Dose: 100 mls/hr Documented by: Levofloxacin/Dextrose 500 mg/ (Premix) 100 mls @ 100 mls/hr IV ONETIME KOLE Sodium Chloride (Normal Saline) 1,000 mls @ 100 mls/hr IV Q10H [facility] Last Admin: 12/08/19 09:35 Dose: Not Given Documented by: Sodium Chloride (Normal Saline) 1,000 mls @ 100 mls/hr IV ASDIRECTED [facility] Last Admin: 12/09/19 00:26 Dose: 100 mls/hr Documented by: Piperacillin Sod/Tazobactam (Sod 4.5 gm/ Sodium Chloride) 100 mls @ 100 mls/hr IV Q6H [facility] Last Admin: 12/09/19 10:12 Dose: 100 mls/hr Documented by: Iopamidol (Isovue-370 (76%)) 75 ml IVPUSH ONETIME STA Stop: 12/07/19 17:06 Last Admin: 12/07/19 17:06 Dose: 75 ml Documented by: Lisinopril (Prinivil) 10 mg PO DAILY [facility] Last Admin: 12/06/19 09:39 Dose: Not Given Documented by: Methylprednisolone Sodium Succinate (Solu-Medrol) 40 mg IVPUSH Q6H [facility] Last Admin: 12/08/19 08:30 Dose: 40 mg Documented by: Methylprednisolone Sodium Succinate (Solu-Medrol) 40 mg IVPUSH Q8H [facility] Last Admin: 12/09/19 09:06 Dose: 40 mg Documented by: Methylprednisolone Sodium Succinate (Solu-Medrol) 40 mg IVPUSH Q12H [facility] Last Admin: 12/10/19 10:08 Dose: 40 mg Documented by: Pneumococcal Polyvalent Vaccine (Pneumovax 23) 0.5 ml SUBCUT .ONCE ONE Stop: 12/09/19 13:02 Prednisone (Prednisone) 50 mg PO ONETIME ONE Stop: 12/05/19 16:50 Last Admin: 12/05/19 17:01 Dose: 50 mg Documented by: <Mickey Palafox - Last Filed: 12/13/19 19:37> Discharge Summary - Referral to Home Health Primary Care Physician: Sanjuantia Vasquez DO - Discharge Diagnosis/Problem(s) (1) Acute on chronic respiratory failure with hypoxia and hypercapnia SNOMED Code(s): 28889700659501 ICD Code: J96.21 - ACUTE AND CHRONIC RESPIRATORY FAILURE WITH HYPOXIA; J96.22 - ACUTE AND CHRONIC RESPIRATORY FAILURE WITH HYPERCAPNIA Status: Acute (2) COPD exacerbation SNOMED Code(s): 147554848 ICD Code: J44.1 - CHRONIC OBSTRUCTIVE PULMONARY DISEASE W (ACUTE) EXACERBATION Status: Acute (3) Pneumonia of both lower lobes SNOMED Code(s): 349513793, 144533015 ICD Code: J18.9 - PNEUMONIA, UNSPECIFIED ORGANISM Status: Acute (4) Obesity SNOMED Code(s): 088734669, 379366277 ICD Code: E66.9 - OBESITY, UNSPECIFIED Status: Chronic (5) Tobacco use SNOMED Code(s): 069828602 ICD Code: Z72.0 - TOBACCO USE Status: Chronic - Discharge Summary/Plan Comment Discharge Summary/Plan Comment: I have seen and evaluated the patient and agree with the residents note unless specified in my note - Patient Data Vitals - Most Recent: Last Vital Signs Temp 36.1 C 12/11/19 07:54 Pulse 89 12/11/19 07:54 Resp 18 12/11/19 07:54 BP 133/65 12/11/19 07:54 Pulse Ox 91 L 12/11/19 07:54 Med Orders - Current: Current Medications Discontinued Medications Albuterol/Ipratropium (Duoneb 3.0-0.5 Mg/3 Ml) 3 ml NEB ONETIME ONE Stop: 12/05/19 16:50 Last Admin: 12/05/19 16:59 Dose: 3 ml Documented by: Albuterol/Ipratropium (Duoneb 3.0-0.5 Mg/3 Ml) 3 ml NEB Q4HRRT ONE Stop: 12/05/19 19:35 Last Admin: 12/05/19 21:04 Dose: 3 ml Documented by: Albuterol/Ipratropium (Duoneb 3.0-0.5 Mg/3 Ml) 3 ml NEB Q4HRRT [facility] Last Admin: 12/11/19 09:34 Dose: 3 ml Documented by: Aspirin (Aspirin) 81 mg PO DAILY [facility] Last Admin: 12/11/19 08:42 Dose: Not Given Documented by: Aspirin (Aspirin) 81 mg PO DAILY [facility] Last Admin: 12/11/19 08:24 Dose: 81 mg Documented by: Azithromycin (Zithromax) 500 mg PO ONETIME ONE Stop: 12/05/19 16:50 Last Admin: 12/05/19 17:00 Dose: 500 mg Documented by: Cholecalciferol (Vitamin D3) 50 mcg PO DAILY [facility] Last Admin: 12/11/19 08:30 Dose: Not Given Documented by: Diphtheria/Tetanus/Acell Pertussis (Boostrix) 0.5 ml IM .ONCE ONE Stop: 12/09/19 13:03 Heparin Sodium (Porcine) (Heparin Sodium) 5,000 units SUBCUT Q12H [facility] Last Admin: 12/11/19 07:02 Dose: 5,000 units Documented by: Ceftriaxone Sodium/Dextrose 2 (gm/ Premix) 50 mls @ 100 mls/hr IV ONETIME ONE Stop: 12/05/19 18:18 Last Admin: 12/05/19 18:07 Dose: Not Given Documented by: Levofloxacin/Dextrose 750 mg/ (Premix) 150 mls @ 100 mls/hr IV ONETIME ONE Stop: 12/05/19 19:40 Last Admin: 12/05/19 19:10 Dose: 100 mls/hr Documented by: Levofloxacin/Dextrose 500 mg/ (Premix) 100 mls @ 100 mls/hr IV ONETIME [facility] Levofloxacin/Dextrose 750 mg/ (Premix) 150 mls @ 100 mls/hr IV Q24H [facility] Last Admin: 12/10/19 18:28 Dose: 100 mls/hr Documented by: Sodium Chloride (Normal Saline) 1,000 mls @ 100 mls/hr IV Q10H [facility] Last Admin: 12/08/19 09:35 Dose: Not Given Documented by: Sodium Chloride (Normal Saline) 1,000 mls @ 100 mls/hr IV ASDIRECTED [facility] Last Admin: 12/09/19 00:26 Dose: 100 mls/hr Documented by: Piperacillin Sod/Tazobactam (Sod 4.5 gm/ Sodium Chloride) 100 mls @ 100 mls/hr IV Q6H [facility] Last Admin: 12/09/19 10:12 Dose: 100 mls/hr Documented by: Iopamidol (Isovue-370 (76%)) 75 ml IVPUSH ONETIME STA Stop: 12/07/19 17:06 Last Admin: 12/07/19 17:06 Dose: 75 ml Documented by: Lisinopril (Prinivil) 10 mg PO DAILY [facility] Last Admin: 12/06/19 09:39 Dose: Not Given Documented by: Methylprednisolone Sodium Succinate (Solu-Medrol) 40 mg IVPUSH Q6H [facility] Last Admin: 12/08/19 08:30 Dose: 40 mg Documented by: Methylprednisolone Sodium Succinate (Solu-Medrol) 40 mg IVPUSH Q8H [facility] Last Admin: 12/09/19 09:06 Dose: 40 mg Documented by: Methylprednisolone Sodium Succinate (Solu-Medrol) 40 mg IVPUSH Q12H [facility] Last Admin: 12/10/19 10:08 Dose: 40 mg Documented by: Miscellaneous Information (Remove Patch) 1 ea TRDERM BEDTIME [facility] Last Admin: 12/10/19 21:08 Dose: Not Given Documented by: Multivitamins/Minerals/Vitamin C (Tab-A-Cheo) 1 tab PO DAILY [facility] Last Admin: 12/11/19 08:29 Dose: Not Given Documented by: Nicotine (Habitrol) 21 mg TRDERM DAILY [facility] Last Admin: 12/11/19 08:27 Dose: Not Given Documented by: Omeprazole (Omeprazole) 20 mg PO BIDAC [facility] Last Admin: 12/11/19 07:02 Dose: 20 mg Documented by: Lisinopril 10 Mg Tab - Patient Own Medication 1 each PO DAILY [facility] Last Admin: 12/11/19 08:26 Dose: 1 each Documented by: [Vitamin A] 2,400 (Mcg) 1 each PO DAILY [facility] Last Admin: 12/11/19 08:27 Dose: Not Given Documented by: [Vitamin E] 180 Mg 1 each PO DAILY [facility] Last Admin: 12/11/19 08:27 Dose: Not Given Documented by: Pneumococcal Polyvalent Vaccine (Pneumovax 23) 0.5 ml SUBCUT .ONCE ONE Stop: 12/09/19 13:02 Prednisone (Prednisone) 50 mg PO ONETIME ONE Stop: 12/05/19 16:50 Last Admin: 12/05/19 17:01 Dose: 50 mg Documented by: Prednisone (Prednisone) 40 mg PO WITHBREAKFAST [facility] Last Admin: 12/11/19 08:24 Dose: 40 mg Documented by: Sodium Chloride (Saline Flush) 10 ml FLUSH ASDIRECTED PRN PRN Reason: Keep Vein Open Last Admin: 12/05/19 17:06 Dose: 10 ml Documented by: Sodium Chloride (Saline Flush) 2.5 ml FLUSH ASDIRECTED PRN PRN Reason: Keep Vein Open Last Admin: 12/05/19 17:06 Dose: 2.5 ml Documented by:
--- NOTE | 2019-12-14 10:44 | ECHO ---
EXAM DATE: 12/05/19 PATIENT'S AGE: 54 The ECHO report has been scanned into [employer] and can be seen in this patient's EMR (Electronic Medical Record) under the REPORTS section. The report has also been scanned into PACS. CHELSEA
== END 2019-12-11 14:10 | disposition home or self-care (01) | DRG 193 ==
LOC: MW.ED 16:33 → MW.MS 18:36 → MW.ICU 12-07 14:00 → MW.MS 12-10 11:08
PROVIDERS: ADMIT Student in an Organized Health Care Education/Training Program; ATTEND Student in an Organized Health Care Education/Training Program
PROC: 5A09457 Assistance with Respiratory Ventilation, 24-96 Consecutive Hours, Continuous Positive Airway Pressure (ICD-10-PCS; principal; 2019-12-05)
DX: J18.9 Pneumonia, unspecified organism (principal); J96.21 Acute and chronic respiratory failure with hypoxia; J96.22 Acute and chronic respiratory failure with hypercapnia; J44.1 Chronic obstructive pulmonary disease with (acute) exacerbation; E66.9 Obesity, unspecified; E78.00 Pure hypercholesterolemia, unspecified; I10 Essential (primary) hypertension; G89.29 Other chronic pain; M54.9 Dorsalgia, unspecified; Z20.828 Contact with and (suspected) exposure to other viral communicable diseases; Z98.51 Tubal ligation status; Z79.899 Other long term (current) drug therapy; Z79.52 Long term (current) use of systemic steroids; Z79.82 Long term (current) use of aspirin; Z87.891 Personal history of nicotine dependence; Z88.6 Allergy status to analgesic agent; Z88.5 Allergy status to narcotic agent; Z88.1 Allergy status to other antibiotic agents; Z68.39 Body mass index [BMI] 39.0-39.9, adult
CPT/HCPCS: 36415; 36600; 71046; 71046-26; 71275; 71275-26; 80048; 80053; 82607; 82785; 82803; 83036; 83735; 83880; 84100; 84145; 84484; 85025; 85379; 86003; 87070; 87205; 87486; 87581; 87632; 87798; 93005; 93306; 94640; 94660; 99283; 99285-25; A9270-GY; J1644; J1956; J2543; J2920; J7030; J7050; J7620-GY; Q9967; U0002

== ENCOUNTER 2020-01-12 09:31 | Inpatient (IN) | payer OTHER ==
[2020-01-12] MEDS ORDERED: Sodium Chloride 0.9% 10 ML Syringe FLUSH PRN (09:37)
[2020-01-12] MEDS ORDERED: Sodium Chloride 0.9% 2.5 ML Syringe FLUSH PRN (09:37)
--- NOTE | 2020-01-12 09:57 | EDM.PDOC ---
ED HPI GENERAL MEDICAL PROBLEM - General Chief Complaint: Respiratory Problem Stated Complaint: COPD Time Seen by Provider: 01/12/20 09:32 Source of Information: Reports: Patient History Limitations: Reports: No Limitations - History of Present Illness INITIAL COMMENTS - FREE TEXT/NARRATIVE: 54-year-old female with history of COPD on 3 L nasal cannula presents with worsening dyspnea today. She has had chronic shortness of breath over the last couple weeks but worsened over the last 2 days. Today her symptoms worsened with exertion at work. She checked her pulse ox on 4L oxygen and it was reading 49% on her finger pulse oximeter. She admits to dyspnea, congestion, dizziness. She denies fever, chills, chest pain, abdominal pain, nausea, vomiting, diarrhea. She was satting 88% on 6L NC in triage. ROS: A 10-point review of systems, other than pertinent positives and negatives as stated per HPI, is otherwise negative Past medical history: No additional pertinent history Past Surgical history: No additional pertinent history Social history: No additional pertinent history Family history: No additional pertinent history PHYSICAL EXAM Pulse ox interp: Hypoxic (88% on 6L) General: AOx4, GCS = 15, No distress HEENT: dry mucous membrane Neck: supple, no meningismus, no Kernig or Brudzinski Cardiac: S1S2 RRR Respiratory: CTAB, no crackles or rales, no wheezing Abdomen: Soft, nontender, no rebound or guarding, nondistended, no pulsatile mass. Back: nontender Musculoskeletal: NVI distally, no deformity Neuro: No focal deficits - Related Data Allergies Allergy/AdvReac Type Severity Reaction Status Date / Time cephalexin [From Keflex] Allergy Hives Verified 01/12/20 09:42 diclofenac Allergy Cannot Verified 01/12/20 09:42 Remember oxycodone [From Percocet] Allergy Cannot Verified 01/12/20 09:42 Remember Home Meds: Home Meds Albuterol Sulfate 2.5 mg IH Q4H PRN 12/05/19 [History] Albuterol [Ventolin HFA] 18 gm .XX DAILY 12/05/19 [History] Aspirin 81 mg PO DAILY 12/05/19 [History] Cholecalciferol (Vitamin D3) [Vitamin D3] 50 mcg PO DAILY 12/05/19 [History] Multivitamin [Multi-Vitamin Daily] 1 tab PO DAILY 12/05/19 [History] Vitamin E (Dl,Tocopheryl Acet) [Vitamin E] 180 mg PO DAILY 12/05/19 [History] lisinopriL [Lisinopril] 10 mg PO DAILY 12/05/19 [History] Fluticasone/Umeclidin/Vilanter [Trelegy Ellipta 100-62.5-25 MCG] 1 puff INH ONETIME 30 Days #1 inhaler 12/11/19 [Rx] Nicotine [Habitrol] 21 mg TRDERM DAILY patch 12/11/19 [Rx] Omeprazole 20 mg PO BIDAC cap.cr 12/11/19 [Rx] predniSONE [Prednisone] 5 mg PO DAILY 14 Days #14 tablet 12/11/19 [Rx] predniSONE [Prednisone] 10 mg PO DAILY 12 Days #1 tab.ds.pk 12/11/19 [Rx] Past Medical History HEENT 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: Other (See Below) Other HEENT History: sinus issues Cardiovascular 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: High Cholesterol, Hypertension Respiratory 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: Bronchitis, Recurrent, COPD Gastrointestinal 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: None Genitourinary 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: None DATABASE ANALYST 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: None Musculoskeletal 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: Back Pain, Chronic Neurological 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: None Psychiatric 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: None Endocrine/Metabolic 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: None Hematologic 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: None Immunologic 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: None Oncologic (Cancer) 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: None Dermatologic 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: None - Infectious Disease History Infectious Disease 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: Chicken Pox - Past Surgical History Female Surgical 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: Tubal Ligation Musculoskeletal Surgical 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: Other (See Below) Social & Family History - Family History Family Medical History: Noncontributory - Tobacco Use Smoking Status *Q: Current Some Day Smoker Years of Tobacco use: 15 Packs/Tins Daily: 0.1 - Caffeine Use Caffeine Use: Reports: Coffee, Energy Drinks, Soda, Tea Caffeine Use Comment: seldom drinks energy drinks - Recreational Drug Use Recreational Drug Use: No ED ROS GENERAL - Review of Systems Review Of Systems: Comprehensive ROS is negative, except as noted in HPI. ED EXAM, GENERAL - Physical Exam Exam: See Below EKG INTERPRETATION EKG Interpretation Comments: 88 Bpm, NSR, normal QRS interval, no STEMI. EKG and rhythm strip interpreted by me at 1004 Course - Vital Signs Last Recorded V/S: Last Vital Signs Temp 96.1 F L 01/12/20 09:43 Pulse 87 01/12/20 11:40 Resp 18 01/12/20 11:40 BP 106/69 01/12/20 11:40 Pulse Ox 95 01/12/20 11:40 - Orders/Labs/Meds Orders: Active Orders 24 hr Category Date Time Status Admission Status [Patient Status] [ADT] Stat ADT 01/12/20 12:07 Ordered Cardiac Monitoring [RC] . DIRECTED Care 01/12/20 09:37 Active EKG Documentation Completion [RC] STAT Care 01/12/20 09:38 Active Pulse Oximetry [RC] ASDIRECTED Care 01/12/20 09:37 Active CULTURE BLOOD [BC] Stat Lab 01/12/20 10:28 Received CULTURE BLOOD [BC] Stat Lab 01/12/20 10:35 Received PROCALCITONIN [REF] Stat Lab 01/12/20 10:28 Received Sodium Chloride 0.9% [Saline Flush] Med 01/12/20 09:37 Active 10 ml FLUSH ASDIRECTED PRN Sodium Chloride 0.9% [Saline Flush] Med 01/12/20 09:37 Active 2.5 ml FLUSH ASDIRECTED PRN Blood Culture x2 Reflex Set [OM.PC] Stat Oth 01/12/20 09:59 Ordered Isolation [COMM] Stat Oth 01/12/20 09:58 Active Saline Lock Insert [OM.PC] Stat Oth 01/12/20 09:37 Ordered Medication Orders Sodium Chloride (Saline Flush) 10 ml FLUSH ASDIRECTED PRN PRN Reason: Keep Vein Open Last Admin: 01/12/20 10:35 Dose: 10 ml Documented by: [id number] Sodium Chloride (Saline Flush) 2.5 ml FLUSH ASDIRECTED PRN PRN Reason: Keep Vein Open Last Admin: 01/12/20 10:35 Dose: 2.5 ml Documented by: [id number] Labs: Laboratory Tests 01/12/20 01/12/20 01/12/20 Range/Units 10:15 10:28 10:28 WBC 8.36 (4.0-11.0) K/uL RBC 4.75 (4.30-5.90) M/uL Hgb 14.5 (12.0-16.0) g/dL Hct 48.0 H (36.0-46.0) % MCV 101.1 H (80.0-98.0) fL MCH 30.5 (27.0-32.0) pg MCHC 30.2 L (31.0-37.0) g/dL RDW Std Deviation 55.2 (28.0-62.0) fl RDW Coeff of Vera 15 (11.0-15.0) % Plt Count 211 (150-400) K/uL MPV 10.20 (7.40-12.00) fL Neut % (Auto) 77.2 (48.0-80.0) % Lymph % (Auto) 13.6 L (16.0-40.0) % [place] % (Auto) 8.6 (0.0-15.0) % Eos % (Auto) 0.5 (0.0-7.0) % Baso % (Auto) 0.1 (0.0-1.5) % Neut # (Auto) 6.5 H (1.4-5.7) K/uL Lymph # (Auto) 1.1 (0.6-2.4) K/uL [place] # (Auto) 0.7 (0.0-0.8) K/uL Eos # (Auto) 0.0 (0.0-0.7) K/uL Baso # (Auto) 0.0 (0.0-0.1) K/uL Nucleated RBC % 0.0 /100WBC Nucleated RBCs # 0 K/uL INR 0.94 APTT 24.0 (18.6-31.3) SEC D-Dimer, Quantitative (0.0-0.50) mg/L FEU ABG pH 7.355 (7.35-7.45) ABG pCO2 76 H (35-45) mmHG ABG pO2 92 (75-100) mmHG ABG HCO3 42 H (22-26) mEq/L ABG Total CO2 37.6 ABG Base Excess 12.7 H (-2.0-2.0) Sodium (136-145) mmol/L Potassium (3.5-5.1) mmol/L Chloride (98-107) mmol/L Carbon Dioxide (21.0-32.0) mmol/L BUN (7.0-18.0) mg/dL Creatinine (0.6-1.0) mg/dL Est Cr Clr Drug Dosing mL/min Estimated GFR (MDRD) ml/min Glucose (74-106) mg/dL Calcium (8.5-10.1) mg/dL Phosphorus (2.6-4.7) mg/dL Magnesium (1.8-2.4) mg/dL Total Bilirubin (0.2-1.0) mg/dL AST (15-37) IU/L ALT (14-63) IU/L Alkaline Phosphatase (46-116) U/L Lactate Dehydrogenase (81-234) U/L Troponin I (0.000-0.056) ng/mL C-Reactive Protein (0.00-0.90) mg/dL B-Natriuretic Peptide (<100) PG/ML Total Protein (6.4-8.2) g/dL Albumin (3.4-5.0) g/dL Globulin (2.6-4.0) g/dL Albumin/Globulin Ratio (0.9-1.6) COVID-19 (RUBIN) (NEGATIVE) 01/12/20 01/12/20 01/12/20 Range/Units 10:28 10:28 10:28 WBC (4.0-11.0) K/uL RBC (4.30-5.90) M/uL Hgb (12.0-16.0) g/dL Hct (36.0-46.0) % MCV (80.0-98.0) fL MCH (27.0-32.0) pg MCHC (31.0-37.0) g/dL RDW Std Deviation (28.0-62.0) fl RDW Coeff of Vera (11.0-15.0) % Plt Count (150-400) K/uL MPV (7.40-12.00) fL Neut % (Auto) (48.0-80.0) % Lymph % (Auto) (16.0-40.0) % [place] % (Auto) (0.0-15.0) % Eos % (Auto) (0.0-7.0) % Baso % (Auto) (0.0-1.5) % Neut # (Auto) (1.4-5.7) K/uL Lymph # (Auto) (0.6-2.4) K/uL [place] # (Auto) (0.0-0.8) K/uL Eos # (Auto) (0.0-0.7) K/uL Baso # (Auto) (0.0-0.1) K/uL Nucleated RBC % /100WBC Nucleated RBCs # K/uL INR APTT (18.6-31.3) SEC D-Dimer, Quantitative 0.53 H (0.0-0.50) mg/L FEU ABG pH (7.35-7.45) ABG pCO2 (35-45) mmHG ABG pO2 (75-100) mmHG ABG HCO3 (22-26) mEq/L ABG Total CO2 ABG Base Excess (-2.0-2.0) Sodium (136-145) mmol/L Potassium (3.5-5.1) mmol/L Chloride (98-107) mmol/L Carbon Dioxide (21.0-32.0) mmol/L BUN (7.0-18.0) mg/dL Creatinine (0.6-1.0) mg/dL Est Cr Clr Drug Dosing mL/min Estimated GFR (MDRD) ml/min Glucose (74-106) mg/dL Calcium (8.5-10.1) mg/dL Phosphorus (2.6-4.7) mg/dL Magnesium (1.8-2.4) mg/dL Total Bilirubin (0.2-1.0) mg/dL AST (15-37) IU/L ALT (14-63) IU/L Alkaline Phosphatase (46-116) U/L Lactate Dehydrogenase 197 (81-234) U/L Troponin I (0.000-0.056) ng/mL C-Reactive Protein 1.40 H (0.00-0.90) mg/dL B-Natriuretic Peptide 75 (<100) PG/ML Total Protein (6.4-8.2) g/dL Albumin (3.4-5.0) g/dL Globulin (2.6-4.0) g/dL Albumin/Globulin Ratio (0.9-1.6) COVID-19 (RUBIN) (NEGATIVE) 01/12/20 01/12/20 Range/Units 10:39 11:33 WBC (4.0-11.0) K/uL RBC (4.30-5.90) M/uL Hgb (12.0-16.0) g/dL Hct (36.0-46.0) % MCV (80.0-98.0) fL MCH (27.0-32.0) pg MCHC (31.0-37.0) g/dL RDW Std Deviation (28.0-62.0) fl RDW Coeff of Vera (11.0-15.0) % Plt Count (150-400) K/uL MPV (7.40-12.00) fL Neut % (Auto) (48.0-80.0) % Lymph % (Auto) (16.0-40.0) % [place] % (Auto) (0.0-15.0) % Eos % (Auto) (0.0-7.0) % Baso % (Auto) (0.0-1.5) % Neut # (Auto) (1.4-5.7) K/uL Lymph # (Auto) (0.6-2.4) K/uL [place] # (Auto) (0.0-0.8) K/uL Eos # (Auto) (0.0-0.7) K/uL Baso # (Auto) (0.0-0.1) K/uL Nucleated RBC % /100WBC Nucleated RBCs # K/uL INR APTT (18.6-31.3) SEC D-Dimer, Quantitative (0.0-0.50) mg/L FEU ABG pH (7.35-7.45) ABG pCO2 (35-45) mmHG ABG pO2 (75-100) mmHG ABG HCO3 (22-26) mEq/L ABG Total CO2 ABG Base Excess (-2.0-2.0) Sodium 145 (136-145) mmol/L Potassium 4.2 (3.5-5.1) mmol/L Chloride 101 (98-107) mmol/L Carbon Dioxide 39.3 H (21.0-32.0) mmol/L BUN 12 (7.0-18.0) mg/dL Creatinine 0.5 L (0.6-1.0) mg/dL Est Cr Clr Drug Dosing 123.21 mL/min Estimated GFR (MDRD) > 60.0 ml/min Glucose 90 (74-106) mg/dL Calcium 8.2 L (8.5-10.1) mg/dL Phosphorus 3.5 (2.6-4.7) mg/dL Magnesium 2.0 (1.8-2.4) mg/dL Total Bilirubin 0.3 (0.2-1.0) mg/dL AST 17 (15-37) IU/L ALT 23 (14-63) IU/L Alkaline Phosphatase 102 (46-116) U/L Lactate Dehydrogenase (81-234) U/L Troponin I < 0.050 (0.000-0.056) ng/mL C-Reactive Protein (0.00-0.90) mg/dL B-Natriuretic Peptide (<100) PG/ML Total Protein 6.4 (6.4-8.2) g/dL Albumin 3.0 L (3.4-5.0) g/dL Globulin 3.4 (2.6-4.0) g/dL Albumin/Globulin Ratio 0.9 (0.9-1.6) COVID-19 (RUBIN) NEGATIVE (NEGATIVE) Meds: Medications Generic Name Dose Route Start Last Admin Trade Name Freq PRN Reason Stop Dose Admin Sodium Chloride 10 ml 01/12/20 09:37 01/12/20 10:35 Saline Flush FLUSH 10 ml ASDIRECTED PRN Administration Keep Vein Open Sodium Chloride 2.5 ml 01/12/20 09:37 01/12/20 10:35 Saline Flush FLUSH 2.5 ml ASDIRECTED PRN Administration Keep Vein Open Discontinued Medications Generic Name Dose Route Start Last Admin Trade Name Freq PRN Reason Stop Dose Admin Albuterol/Ipratropium 3 ml 01/12/20 09:58 01/12/20 10:35 Duoneb 3.0-0.5 Mg/3 Ml NEB 01/12/20 09:59 3 ml ONETIME ONE Administration Dexamethasone 6 mg 01/12/20 09:58 01/12/20 10:35 Dexamethasone IVPUSH 01/12/20 09:59 6 mg ONETIME ONE Administration - Re-Assessments/Exams Free Text/Narrative Re-Assessment/Exam: 01/12/20 12:11 Patient is currently satting 92% on 5 L nasal cannula. Case discussed with Dr. Palafox, who agrees to admit patient. The hospitalist's documentation supersedes all other documentation on this patient with regard to any conflicts or discrepancies from this point forward. Any emergency conditions have been treated to the ability of the ED prior to admission. Departure - Departure Time of Disposition: 12:12 Disposition: Refer to Observation Condition: Good Clinical Impression: Respiratory failure with hypoxia, COPD exacerbation - Discharge Information *PRESCRIPTION DRUG MONITORING PROGRAM REVIEWED*: Not Applicable *COPY OF PRESCRIPTION DRUG MONITORING REPORT IN PATIENT VALENTE: Not Applicable Referrals: Sanjuanita Vasquez DO [Primary Care Provider] - Forms: ED Department Discharge Critical Care Note - Critical Care Note Total Time (mins): 40 Comments: Critical Care: The high probability of sudden, clinically significant deterioration in the patient's condition required the highest level of my preparedness to intervene urgently. The services I provided to this patient were to treat and/or prevent clinically significant deterioration. Services included the following: chart data review, reviewing nursing notes and/or old charts, documentation time, business transformation consultant collaboration regarding findings and treatment options, medication orders and management, direct patient care, vital sign assessments and ordering, interpreting and reviewing diagnostic studies/lab tests. Aggregate critical care time includes only time during which I was engaged in work directly related to the patient's care, as described above, whether at the bedside or elsewhere in the Emergency Department. It did not include time spent performing other reported procedures or the services of residents, students, nurses or physician assistants. Frequent interventions and/or frequent repeat evaluations were required as well as counseling and coordination of care regarding prognosis, treatments, and discussions with patient, staff and consultants. Critical Care (excluding other procedures): 40 minutes Sepsis Event Note (ED) - Evaluation Sepsis Screening Result: Possible Sepsis Risk - Focused Exam Vital Signs: Vital Signs Temp Pulse Resp BP Pulse Ox 01/12/20 11:40 87 18 106/69 95 01/12/20 10:10 87 94 L 01/12/20 09:43 96.1 F L 95 18 133/48 L 88 L - My Orders Last 24 Hours: My Active Orders 01/12/20 09:37 Cardiac Monitoring [RC] . DIRECTED Pulse Oximetry [RC] ASDIRECTED Sodium Chloride 0.9% [Saline Flush] 10 ml FLUSH ASDIRECTED PRN Sodium Chloride 0.9% [Saline Flush] 2.5 ml FLUSH ASDIRECTED PRN Saline Lock Insert [OM.PC] Stat 01/12/20 09:38 EKG Documentation Completion [RC] STAT 01/12/20 09:58 Isolation [COMM] Stat 01/12/20 09:59 Blood Culture x2 Reflex Set [OM.PC] Stat 01/12/20 10:28 CULTURE BLOOD [BC] Stat PROCALCITONIN [REF] Stat 01/12/20 10:35 CULTURE BLOOD [BC] Stat 01/12/20 12:07 Admission Status [Patient Status] [ADT] Stat - Assessment/Plan Last 24 Hours: My Active Orders 01/12/20 09:37 Cardiac Monitoring [RC] . DIRECTED Pulse Oximetry [RC] ASDIRECTED Sodium Chloride 0.9% [Saline Flush] 10 ml FLUSH ASDIRECTED PRN Sodium Chloride 0.9% [Saline Flush] 2.5 ml FLUSH ASDIRECTED PRN Saline Lock Insert [OM.PC] Stat 01/12/20 09:38 EKG Documentation Completion [RC] STAT 01/12/20 09:58 Isolation [COMM] Stat 01/12/20 09:59 Blood Culture x2 Reflex Set [OM.PC] Stat 01/12/20 10:28 CULTURE BLOOD [BC] Stat PROCALCITONIN [REF] Stat 01/12/20 10:35 CULTURE BLOOD [BC] Stat 01/12/20 12:07 Admission Status [Patient Status] [ADT] Stat
[2020-01-12] MEDS ORDERED: Albuterol/Ipratropium 3.0-0.5 MG/3 ML Neb Soln NEB ONE (09:58)
[2020-01-12] MEDS ORDERED: Dexamethasone 10 MG/ML SDV IVPUSH ONE (09:58)
[2020-01-12 11:09] LABS: BLOOD UREA NITROGEN,BUN 12 mg/dL (7.0-18.0); CARBON DIOXIDE,CO2 39.3 mmol/L (21.0-32.0); CHLORIDE,CL 101 mmol/L (98-107); GLUCOSE RANDOM 90 mg/dL (74-106); POTASSIUM,K 4.2 mmol/L (3.5-5.1); SODIUM,NA 145 mmol/L (136-145)
--- NOTE | 2020-01-12 11:33 | CR ---
Chest: 2 views of the chest were obtained. Comparison: No previous chest imaging. Heart size is slightly enlarged. Upper mediastinum is normal. Areas of atelectasis are seen within both lungs. Pulmonary vessels may be slightly congested. Impression: 1. Findings possibly due to early CHF. 2. Mild bibasilar atelectasis. Diagnostic code #3 This report was dictated in MDT
[2020-01-12] MEDS ORDERED: Acetaminophen 325 MG Tab PO PRN (13:18)
[2020-01-12] MEDS ORDERED: Docusate Sodium 100 MG Cap PO PRN (13:18)
[2020-01-12] MEDS ORDERED: Ondansetron 4 MG/2 ML SDV IVPUSH PRN (13:18)
[2020-01-12] MEDS ORDERED: Furosemide 40 MG/4 ML VIAL IVPUSH ONE (13:21)
--- NOTE | 2020-01-12 14:12 | PCM.HP.2 ---
H&P History of Present Illness - General Date of Service: 01/12/20 Admit Problem/Dx: Admission Diagnosis/Problem Admission Diagnosis/Problem Respiratory failure with hypoxia Source of Information: Patient History Limitations: Reports: No Limitations - History of Present Illness Initial Comments - Free Text/Narative: This 54 year old female with pmh of COPD, oxygen dependent, tobacco abuse, obesity, and HTN presented to the ED today with concerns of hypoxia she noted on her pulse ox, increased shortness of breath over the last couple days and white phlegm. She reports she started back to work December 19 and hasn't been able to keep up as much as she used to. She has not been wearing oxygen at work sometimes she feels people don't treat her the same. She reports today she was at work and checked her oxygen sats due to her feeling more short of breath, dizziness and lightheaded. She reports pulse ox readings were in the 40-50%. She denies chest pain or SOB. No fevers or chills. No palpitations. She denies orthopnea. She does reports edema to lower extremities. She denies neurological deficits. No abdominal pain, but feels bloated. No diarrhea or constipation. No black or bloody BMs. She continues to smoke 1-2 cigarettes. No alcohol use and no recreational drug use. She usually wears 2 L NC at night time and 3-4 during the day depending on activity. In the ED CBC WNL, CMP, stable, shows elevated bicar 39. Troponin negative. Covid testing negative. ABG revealed chronic hypercapnia, pCO2 76, ph 7.355. CXR obtained which revealed enlarged heart with congestion of pulmonary arteries, possible early CHF. D dimer elevated, but Wells score low, low probability for PE. She was given Dexamethasone in the ED, treated with Oxygen at 6-8 L with sats elevating to low 90s. She was admitted for acute on chronic hypoxic, hypercapnic respiratory failure, COPD exacerbation and suspected CHF. PCP, Dr Vasquez. - Related Data Allergies/Adverse Reactions: Allergies Allergy/AdvReac Type Severity Reaction Status Date / Time cephalexin [From Keflex] Allergy Hives Verified 01/12/20 13:21 diclofenac Allergy Rash Verified 01/12/20 13:21 oxycodone [From Percocet] Allergy Rash Verified 01/12/20 13:21 Home Medications: Home Meds Albuterol Sulfate 2.5 mg IH Q4H PRN 12/05/19 [History] Aspirin 81 mg PO DAILY 12/05/19 [History] Cholecalciferol (Vitamin D3) [Vitamin D3] 50 mcg PO DAILY 12/05/19 [History] Multivitamin [Multi-Vitamin Daily] 1 tab PO DAILY 12/05/19 [History] Vitamin E (Dl,Tocopheryl Acet) [Vitamin E] 1 tab PO DAILY 12/05/19 [History] lisinopriL [Lisinopril] 10 mg PO DAILY 12/05/19 [History] Fluticasone/Umeclidin/Vilanter [Trelegy Ellipta 100-62.5-25 MCG] 1 puff INH ONET SANAZ 30 Days #1 inhaler 12/11/19 [Rx] predniSONE [Prednisone] 2.5 mg PO DAILY 01/12/20 [History] Past Medical History HEENT 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: Other (See Below) Other HEENT History: sinus issues Cardiovascular 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: High Cholesterol, Hypertension Respiratory 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: Bronchitis, Recurrent, COPD, Other (See Below) (oxygen dependent) Gastrointestinal 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: None Genitourinary 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: None [employer] 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: None Musculoskeletal 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: Back Pain, Chronic Neurological 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: None. Denies: CVA, TIA Psychiatric 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: None Endocrine/Metabolic 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: Obesity/BMI 30+. Denies: Diabetes, Type II Hematologic 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: None Immunologic 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: None Oncologic (Cancer) 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: None Dermatologic 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: None - Infectious Disease History Infectious Disease 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: Chicken Pox - Past Surgical History Female Surgical 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: Tubal Ligation Musculoskeletal Surgical 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: Other (See Below) Social & Family History - Family History Family Medical History: Noncontributory - Tobacco Use Smoking Status *Q: Former Smoker Tobacco Use Within Last Twelve Months: Cigarettes Years of Tobacco use: 15 Packs/Tins Daily: 0.1 Second Hand Smoke Exposure: No - Caffeine Use Caffeine Use: Reports: Coffee, Soda Caffeine Use Comment: seldom drinks energy drinks - Alcohol Use Alcohol Use History: No - Recreational Drug Use Recreational Drug Use: No - Living Situation & Occupation Occupation: Employed H&P Review of Systems - Review of Systems: Review Of Systems: See Below General: Reports: Weakness (generalized). Denies: Fever, Chills, Malaise Pulmonary: Reports: Shortness of Breath, Cough, Sputum (white) Cardiovascular: Reports: Dyspnea on Exertion, Edema (BLE). Denies: Chest Pain, Syncope Gastrointestinal: Reports: Other (bloating). Denies: Abdominal Pain Genitourinary: Reports: No Symptoms. Denies: Dysuria, Frequency Musculoskeletal: Reports: No Symptoms Skin: Reports: No Symptoms Psychiatric: Reports: No Symptoms Neurological: Reports: No Symptoms Hematologic/Lymphatic: Reports: No Symptoms Exam - Exam Exam: See Below - Vital Signs Vital Signs: Last Vital Signs Temp 97.4 F 01/12/20 13:20 Pulse 85 01/12/20 13:20 Resp 16 01/12/20 13:20 BP 127/69 01/12/20 13:20 Pulse Ox 90 L 01/12/20 13:20 Weight: 115.303 kg - Exam Quality Assessment: Supplemental Oxygen, DVT Prophylaxis General: Alert, Oriented, Cooperative Lungs: Decreased Breath Sounds (bibasilar), Crackles (fine crackles bibasilar), Wheezing (scant wheezing), Other (dyspnea with speech and exertion) Cardiovascular: Regular Rate, Regular Rhythm, Normal S1, Normal S2. No: Systolic Murmur, Diastolic Murmur, Rubs GI/Abdominal Exam: Normal Bowel Sounds, Soft, Non-Tender, Other (obesity) Back Exam: Normal Inspection, Full Range of Motion Extremities: Normal Inspection, Normal Range of Motion, Pedal Edema (+1 pitting edema bilaterally) Neuro Extensive - Mental Status: Alert, Oriented x3 Neuro Extensive - Motor, Sensory, Reflexes: CN II-XII Intact Psychiatric: Alert, Normal Affect, Normal Mood - Patient Data Lab Results Last 24 hrs: Laboratory Results - last 24 hr 01/12/20 01/12/20 01/12/20 Range/Units 10:15 10:28 10:28 WBC 8.36 (4.0-11.0) K/uL RBC 4.75 (4.30-5.90) M/uL Hgb 14.5 (12.0-16.0) g/dL Hct 48.0 H (36.0-46.0) % MCV 101.1 H (80.0-98.0) fL MCH 30.5 (27.0-32.0) pg MCHC 30.2 L (31.0-37.0) g/dL RDW Std Deviation 55.2 (28.0-62.0) fl RDW Coeff of Vera 15 (11.0-15.0) % Plt Count 211 (150-400) K/uL MPV 10.20 (7.40-12.00) fL Neut % (Auto) 77.2 (48.0-80.0) % Lymph % (Auto) 13.6 L (16.0-40.0) % Kane % (Auto) 8.6 (0.0-15.0) % Eos % (Auto) 0.5 (0.0-7.0) % Baso % (Auto) 0.1 (0.0-1.5) % Neut # (Auto) 6.5 H (1.4-5.7) K/uL Lymph # (Auto) 1.1 (0.6-2.4) K/uL Kane # (Auto) 0.7 (0.0-0.8) K/uL Eos # (Auto) 0.0 (0.0-0.7) K/uL Baso # (Auto) 0.0 (0.0-0.1) K/uL Nucleated RBC % 0.0 /100WBC Nucleated RBCs # 0 K/uL INR 0.94 APTT 24.0 (18.6-31.3) SEC D-Dimer, Quantitative (0.0-0.50) mg/L FEU ABG pH 7.355 (7.35-7.45) ABG pCO2 76 H (35-45) mmHG ABG pO2 92 (75-100) mmHG ABG HCO3 42 H (22-26) mEq/L ABG Total CO2 37.6 ABG Base Excess 12.7 H (-2.0-2.0) Sodium (136-145) mmol/L Potassium (3.5-5.1) mmol/L Chloride (98-107) mmol/L Carbon Dioxide (21.0-32.0) mmol/L BUN (7.0-18.0) mg/dL Creatinine (0.6-1.0) mg/dL Est Cr Clr Drug Dosing mL/min Estimated GFR (MDRD) ml/min Glucose (74-106) mg/dL Calcium (8.5-10.1) mg/dL Phosphorus (2.6-4.7) mg/dL Magnesium (1.8-2.4) mg/dL Total Bilirubin (0.2-1.0) mg/dL AST (15-37) IU/L ALT (14-63) IU/L Alkaline Phosphatase (46-116) U/L Lactate Dehydrogenase (81-234) U/L Troponin I (0.000-0.056) ng/mL C-Reactive Protein (0.00-0.90) mg/dL B-Natriuretic Peptide (<100) PG/ML Total Protein (6.4-8.2) g/dL Albumin (3.4-5.0) g/dL Globulin (2.6-4.0) g/dL Albumin/Globulin Ratio (0.9-1.6) COVID-19 (RUBIN) (NEGATIVE) 01/12/20 01/12/20 01/12/20 Range/Units 10:28 10:28 10:28 WBC (4.0-11.0) K/uL RBC (4.30-5.90) M/uL Hgb (12.0-16.0) g/dL Hct (36.0-46.0) % MCV (80.0-98.0) fL MCH (27.0-32.0) pg MCHC (31.0-37.0) g/dL RDW Std Deviation (28.0-62.0) fl RDW Coeff of Vera (11.0-15.0) % Plt Count (150-400) K/uL MPV (7.40-12.00) fL Neut % (Auto) (48.0-80.0) % Lymph % (Auto) (16.0-40.0) % Kane % (Auto) (0.0-15.0) % Eos % (Auto) (0.0-7.0) % Baso % (Auto) (0.0-1.5) % Neut # (Auto) (1.4-5.7) K/uL Lymph # (Auto) (0.6-2.4) K/uL Kane # (Auto) (0.0-0.8) K/uL Eos # (Auto) (0.0-0.7) K/uL Baso # (Auto) (0.0-0.1) K/uL Nucleated RBC % /100WBC Nucleated RBCs # K/uL INR APTT (18.6-31.3) SEC D-Dimer, Quantitative 0.53 H (0.0-0.50) mg/L FEU ABG pH (7.35-7.45) ABG pCO2 (35-45) mmHG ABG pO2 (75-100) mmHG ABG HCO3 (22-26) mEq/L ABG Total CO2 ABG Base Excess (-2.0-2.0) Sodium (136-145) mmol/L Potassium (3.5-5.1) mmol/L Chloride (98-107) mmol/L Carbon Dioxide (21.0-32.0) mmol/L BUN (7.0-18.0) mg/dL Creatinine (0.6-1.0) mg/dL Est Cr Clr Drug Dosing mL/min Estimated GFR (MDRD) ml/min Glucose (74-106) mg/dL Calcium (8.5-10.1) mg/dL Phosphorus (2.6-4.7) mg/dL Magnesium (1.8-2.4) mg/dL Total Bilirubin (0.2-1.0) mg/dL AST (15-37) IU/L ALT (14-63) IU/L Alkaline Phosphatase (46-116) U/L Lactate Dehydrogenase 197 (81-234) U/L Troponin I (0.000-0.056) ng/mL C-Reactive Protein 1.40 H (0.00-0.90) mg/dL B-Natriuretic Peptide 75 (<100) PG/ML Total Protein (6.4-8.2) g/dL Albumin (3.4-5.0) g/dL Globulin (2.6-4.0) g/dL Albumin/Globulin Ratio (0.9-1.6) COVID-19 (RUBIN) (NEGATIVE) 01/12/20 01/12/20 Range/Units 10:39 11:33 WBC (4.0-11.0) K/uL RBC (4.30-5.90) M/uL Hgb (12.0-16.0) g/dL Hct (36.0-46.0) % MCV (80.0-98.0) fL MCH (27.0-32.0) pg MCHC (31.0-37.0) g/dL RDW Std Deviation (28.0-62.0) fl RDW Coeff of Vera (11.0-15.0) % Plt Count (150-400) K/uL MPV (7.40-12.00) fL Neut % (Auto) (48.0-80.0) % Lymph % (Auto) (16.0-40.0) % Kane % (Auto) (0.0-15.0) % Eos % (Auto) (0.0-7.0) % Baso % (Auto) (0.0-1.5) % Neut # (Auto) (1.4-5.7) K/uL Lymph # (Auto) (0.6-2.4) K/uL Kane # (Auto) (0.0-0.8) K/uL Eos # (Auto) (0.0-0.7) K/uL Baso # (Auto) (0.0-0.1) K/uL Nucleated RBC % /100WBC Nucleated RBCs # K/uL INR APTT (18.6-31.3) SEC D-Dimer, Quantitative (0.0-0.50) mg/L FEU ABG pH (7.35-7.45) ABG pCO2 (35-45) mmHG ABG pO2 (75-100) mmHG ABG HCO3 (22-26) mEq/L ABG Total CO2 ABG Base Excess (-2.0-2.0) Sodium 145 (136-145) mmol/L Potassium 4.2 (3.5-5.1) mmol/L Chloride 101 (98-107) mmol/L Carbon Dioxide 39.3 H (21.0-32.0) mmol/L BUN 12 (7.0-18.0) mg/dL Creatinine 0.5 L (0.6-1.0) mg/dL Est Cr Clr Drug Dosing 123.21 mL/min Estimated GFR (MDRD) > 60.0 ml/min Glucose 90 (74-106) mg/dL Calcium 8.2 L (8.5-10.1) mg/dL Phosphorus 3.5 (2.6-4.7) mg/dL Magnesium 2.0 (1.8-2.4) mg/dL Total Bilirubin 0.3 (0.2-1.0) mg/dL AST 17 (15-37) IU/L ALT 23 (14-63) IU/L Alkaline Phosphatase 102 (46-116) U/L Lactate Dehydrogenase (81-234) U/L Troponin I < 0.050 (0.000-0.056) ng/mL C-Reactive Protein (0.00-0.90) mg/dL B-Natriuretic Peptide (<100) PG/ML Total Protein 6.4 (6.4-8.2) g/dL Albumin 3.0 L (3.4-5.0) g/dL Globulin 3.4 (2.6-4.0) g/dL Albumin/Globulin Ratio 0.9 (0.9-1.6) COVID-19 (RUBIN) NEGATIVE (NEGATIVE) Result Diagrams: 01/12/20 10:28 01/12/20 10:39 EKG INTERPRETATION EKG Date: 01/12/20 Rhythm: NSR P-Wave: Present QRS: Normal ST-T: Normal QT: Normal Sepsis Event Note - Evaluation Sepsis Screening Result: Possible Sepsis Risk - Focused Exam Vital Signs: Vital Signs Temp Pulse Resp BP Pulse Ox 01/12/20 13:20 97.4 F 85 16 127/69 90 L 01/12/20 12:38 87 124/76 95 01/12/20 12:20 88 18 114/75 93 L 01/12/20 11:40 87 18 106/69 95 01/12/20 10:10 87 94 L 01/12/20 09:43 96.1 F L 95 18 133/48 L 88 L Date Exam was Performed: 01/12/20 Time Exam was Performed: 14:05 - Problem List (1) Acute on chronic respiratory failure with hypoxia and hypercapnia SNOMED Code(s): 99896618283336 ICD Code: J96.21 - ACUTE AND CHRONIC RESPIRATORY FAILURE WITH HYPOXIA; J96.22 - ACUTE AND CHRONIC RESPIRATORY FAILURE WITH HYPERCAPNIA Status: Acute Current Visit: No (2) CHF (congestive heart failure) SNOMED Code(s): 67981467 ICD Code: I50.9 - HEART FAILURE, UNSPECIFIED Status: Acute Current Visit: Yes (3) COPD exacerbation SNOMED Code(s): 621348359 ICD Code: J44.1 - CHRONIC OBSTRUCTIVE PULMONARY DISEASE W (ACUTE) EXACERBATION Status: Acute Current Visit: Yes (4) Obesity SNOMED Code(s): 472032179, 275936148 ICD Code: E66.9 - OBESITY, UNSPECIFIED Status: Chronic Current Visit: No (5) Tobacco use SNOMED Code(s): 702510990 ICD Code: Z72.0 - TOBACCO USE Status: Chronic Current Visit: No (6) HTN (hypertension) SNOMED Code(s): 55700567 ICD Code: I10 - ESSENTIAL (PRIMARY) HYPERTENSION Status: Chronic Current Visit: Yes Problem List Initiated/Reviewed/Updated: Yes Orders Last 24hrs: Active Orders 24 hr Category Date Time Status Admission Status [Patient Status] [ADT] Stat ADT 01/12/20 12:07 Active Height and Weight [RC] DAILY Care 01/12/20 13:18 Active Intake and Output Strict [RC] Q12H Care 01/12/20 13:22 Active Oxygen Therapy [RC] PRN Care 01/12/20 13:18 Active RT Aerosol Therapy [RC] ASDIRECTED Care 01/12/20 13:21 Active Telemetry Monitoring [Cardiac Monitoring] [RC] . Care 01/12/20 13:23 Active DIRECTED Up to Chair [RC] ASDIRECTED Care 01/12/20 13:18 Active VTE/DVT Education [RC] PER UNIT ROUTINE Care 01/12/20 13:18 Active Vital Signs [RC] Q4H Care 01/12/20 13:18 Active Regular Diet [DIET] Diet 01/12/20 Lunch Active BASIC METABOLIC PANEL,BMP [CHEM] AM Lab 01/13/20 05:11 Ordered CBC WITH AUTO DIFF [HEME] AM Lab 01/13/20 05:11 Ordered CULTURE BLOOD [BC] Stat Lab 01/12/20 10:28 Received CULTURE BLOOD [BC] Stat Lab 01/12/20 10:35 Received PROCALCITONIN [REF] Stat Lab 01/12/20 10:28 Received Acetaminophen [Tylenol] Med 01/12/20 13:18 Active 650 mg PO Q4H PRN Albuterol/Ipratropium [DuoNeb 3.0-0.5 MG/3 ML] Med 01/12/20 14:00 Active 3 ml NEB Q4HRRT Docusate Sodium [Colace] Med 01/12/20 13:18 Active 100 mg PO BID PRN Ondansetron [Zofran] Med 01/12/20 13:18 Active 4 mg IVPUSH Q4H PRN Sodium Chloride 0.9% [Saline Flush] Med 01/12/20 09:37 Active 10 ml FLUSH ASDIRECTED PRN Sodium Chloride 0.9% [Saline Flush] Med 01/12/20 09:37 Active 2.5 ml FLUSH ASDIRECTED PRN methylPREDNISolone Sod Succ [Solu-MEDROL] Med 01/12/20 21:00 Active 40 mg IV BID Blood Culture x2 Reflex Set [OM.PC] Stat Ot 01/12/20 09:59 Ordered Isolation [COMM] Stat Ot 01/12/20 09:58 Active Saline Lock Insert [OM.PC] Stat Ot 01/12/20 09:37 Ordered Resuscitation Status Routine Resus Stat 01/12/20 13:18 Ordered Medication Orders Acetaminophen (Tylenol) 650 mg PO Q4H PRN PRN Reason: Pain (Mild 1-3)/fever Albuterol/Ipratropium (Duoneb 3.0-0.5 Mg/3 Ml) 3 ml NEB Q4HRRT KOLE Docusate Sodium (Colace) 100 mg PO BID PRN PRN Reason: Constipation Methylprednisolone Sodium Succinate (Solu-Medrol) 40 mg IV BID KOLE Ondansetron HCl (Zofran) 4 mg IVPUSH Q4H PRN PRN Reason: Nausea Sodium Chloride (Saline Flush) 10 ml FLUSH ASDIRECTED PRN PRN Reason: Keep Vein Open Last Admin: 01/12/20 10:35 Dose: 10 ml Documented by: [email or web address] Sodium Chloride (Saline Flush) 2.5 ml FLUSH ASDIRECTED PRN PRN Reason: Keep Vein Open Last Admin: 01/12/20 10:35 Dose: 2.5 ml Documented by: [id number] Assessment/Plan Comment:: This 54 year old female admitted for acute on chronic hypoxic and hypercapnic respiratory failure, COPD exacerbation and suspected CHF 1. Acute on chronic hypoxic and hypercapnic respiratory failure - Continue oxygen therapy, goal for sats 88%. - Continuous pulce ox - Duonebs scheduled - Hypercapnia is baseline 2. COPD: - Solumedrol 40 mg Q12h IV - Continue Trelegy inhalers - Duonebs as above 3. CHF, pulmonary HTN - Trial Lasix 40 mg IV and monitor reponse - ECHO 11/2019 revealed R ventricular overload and elevated pressures, consistent with COPD and pulmonary HTN. - Arrange outpatient follow up with Cardiology and Lexiscan. - Strict I/O, Daily weights and 2 L FR. Low Na diet. 4. HTN: - Continue Lisinopril VTE prophylaxis: Heparin Dispo: 1-2 days - Mortality Measure Prognosis:: Good
[2020-01-12] MEDS: Albuterol/Ipratropium 3.0-0.5 MG/3 ML Neb Soln NEB SCH ×3 (14:19→21:21)
[2020-01-12] MEDS: Heparin Sodium 5,000 Units/ML Vial SUBCUT SCH (15:57)
[2020-01-12] MEDS: Fluticasone/Umeclidin/Vilanter [Trelegy Ellipta 100-62.5- INH SCH (15:59)
[2020-01-12] MEDS ORDERED: methylPREDNISolone Sodium Succinate 1,000 MG/8 ML SDV IV SCH (21:00)
[2020-01-12] MEDS ORDERED: methylPREDNISolone Sodium Succinate 40 MG/1 ML SDV ONE (21:39)
[2020-01-13] MEDS: Albuterol/Ipratropium 3.0-0.5 MG/3 ML Neb Soln NEB SCH ×6 (02:56→21:49)
[2020-01-13] MEDS: Heparin Sodium 5,000 Units/ML Vial SUBCUT SCH ×2 (03:00→13:59)
[2020-01-13 06:06] LABS: BLOOD UREA NITROGEN,BUN 12 mg/dL (7.0-18.0); CARBON DIOXIDE,CO2 40.1 mmol/L (21.0-32.0); CHLORIDE,CL 100 mmol/L (98-107); GLUCOSE RANDOM 148 mg/dL (74-106); POTASSIUM,K 5.2 mmol/L (3.5-5.1); SODIUM,NA 140 mmol/L (136-145)
--- NOTE | 2020-01-13 08:36 | PCM.PN ---
- General Info Date of Service: 01/13/20 Admission Dx/Problem (Free Text): Admission Diagnosis/Problem Admission Diagnosis/Problem Respiratory failure with hypoxia Subjective Update: seen at bedside, no acute distress, slept well Functional Status: Reports: Pain Controlled, Tolerating Diet, Urinating. Denies: Ambulating - Review of Systems General: Reports: Weakness, Fatigue. Denies: Fever, Malaise, Chills Pulmonary: Reports: Shortness of Breath, Cough, Sputum. Denies: Pleuritic Chest Pain Cardiovascular: Denies: Chest Pain, Palpitations, Dyspnea on Exertion Gastrointestinal: Denies: Abdominal Pain, Constipation, Decreased Appetite Genitourinary: Denies: Dysuria, Frequency Musculoskeletal: Denies: Neck Pain, Shoulder Pain, Arm Pain Skin: Denies: Cyanosis, Jaundice, Mottled - Patient Data Vitals - Most Recent: Last Vital Signs Temp 37.2 C 01/13/20 07:00 Pulse 86 01/13/20 07:00 Resp 18 01/13/20 07:00 BP 112/57 L 01/13/20 07:00 Pulse Ox 91 L 01/13/20 07:00 Weight - Most Recent: 112.491 kg I&O - Last 24 Hours: Intake & Output 01/12/20 01/13/20 01/13/20 22:59 06:59 14:59 Intake Total 300 450 Output Total 1800 650 Balance -1500 -200 Lab Results Last 24 Hours: Laboratory Results - last 24 hr 01/12/20 01/12/20 01/12/20 Range/Units 10:15 10:28 10:28 WBC 8.36 (4.0-11.0) K/uL RBC 4.75 (4.30-5.90) M/uL Hgb 14.5 (12.0-16.0) g/dL Hct 48.0 H (36.0-46.0) % MCV 101.1 H (80.0-98.0) fL MCH 30.5 (27.0-32.0) pg MCHC 30.2 L (31.0-37.0) g/dL RDW Std Deviation 55.2 (28.0-62.0) fl RDW Coeff of Vera 15 (11.0-15.0) % Plt Count 211 (150-400) K/uL MPV 10.20 (7.40-12.00) fL Neut % (Auto) 77.2 (48.0-80.0) % Lymph % (Auto) 13.6 L (16.0-40.0) % [place] % (Auto) 8.6 (0.0-15.0) % Eos % (Auto) 0.5 (0.0-7.0) % Baso % (Auto) 0.1 (0.0-1.5) % Neut # (Auto) 6.5 H (1.4-5.7) K/uL Lymph # (Auto) 1.1 (0.6-2.4) K/uL [place] # (Auto) 0.7 (0.0-0.8) K/uL Eos # (Auto) 0.0 (0.0-0.7) K/uL Baso # (Auto) 0.0 (0.0-0.1) K/uL Nucleated RBC % 0.0 /100WBC Nucleated RBCs # 0 K/uL INR 0.94 APTT 24.0 (18.6-31.3) SEC D-Dimer, Quantitative (0.0-0.50) mg/L FEU ABG pH 7.355 (7.35-7.45) ABG pCO2 76 H (35-45) mmHG ABG pO2 92 (75-100) mmHG ABG HCO3 42 H (22-26) mEq/L ABG Total CO2 37.6 ABG Base Excess 12.7 H (-2.0-2.0) Sodium (136-145) mmol/L Potassium (3.5-5.1) mmol/L Chloride (98-107) mmol/L Carbon Dioxide (21.0-32.0) mmol/L BUN (7.0-18.0) mg/dL Creatinine (0.6-1.0) mg/dL Est Cr Clr Drug Dosing mL/min Estimated GFR (MDRD) ml/min Glucose (74-106) mg/dL Calcium (8.5-10.1) mg/dL Phosphorus (2.6-4.7) mg/dL Magnesium (1.8-2.4) mg/dL Total Bilirubin (0.2-1.0) mg/dL AST (15-37) IU/L ALT (14-63) IU/L Alkaline Phosphatase (46-116) U/L Lactate Dehydrogenase (81-234) U/L Troponin I (0.000-0.056) ng/mL C-Reactive Protein (0.00-0.90) mg/dL B-Natriuretic Peptide (<100) PG/ML Total Protein (6.4-8.2) g/dL Albumin (3.4-5.0) g/dL Globulin (2.6-4.0) g/dL Albumin/Globulin Ratio (0.9-1.6) Procalcitonin (<0.10) ng/mL COVID-19 (RUBIN) (NEGATIVE) 01/12/20 01/12/20 01/12/20 Range/Units 10:28 10:28 10:28 WBC (4.0-11.0) K/uL RBC (4.30-5.90) M/uL Hgb (12.0-16.0) g/dL Hct (36.0-46.0) % MCV (80.0-98.0) fL MCH (27.0-32.0) pg MCHC (31.0-37.0) g/dL RDW Std Deviation (28.0-62.0) fl RDW Coeff of Vera (11.0-15.0) % Plt Count (150-400) K/uL MPV (7.40-12.00) fL Neut % (Auto) (48.0-80.0) % Lymph % (Auto) (16.0-40.0) % [place] % (Auto) (0.0-15.0) % Eos % (Auto) (0.0-7.0) % Baso % (Auto) (0.0-1.5) % Neut # (Auto) (1.4-5.7) K/uL Lymph # (Auto) (0.6-2.4) K/uL [place] # (Auto) (0.0-0.8) K/uL Eos # (Auto) (0.0-0.7) K/uL Baso # (Auto) (0.0-0.1) K/uL Nucleated RBC % /100WBC Nucleated RBCs # K/uL INR APTT (18.6-31.3) SEC D-Dimer, Quantitative 0.53 H (0.0-0.50) mg/L FEU ABG pH (7.35-7.45) ABG pCO2 (35-45) mmHG ABG pO2 (75-100) mmHG ABG HCO3 (22-26) mEq/L ABG Total CO2 ABG Base Excess (-2.0-2.0) Sodium (136-145) mmol/L Potassium (3.5-5.1) mmol/L Chloride (98-107) mmol/L Carbon Dioxide (21.0-32.0) mmol/L BUN (7.0-18.0) mg/dL Creatinine (0.6-1.0) mg/dL Est Cr Clr Drug Dosing mL/min Estimated GFR (MDRD) ml/min Glucose (74-106) mg/dL Calcium (8.5-10.1) mg/dL Phosphorus (2.6-4.7) mg/dL Magnesium (1.8-2.4) mg/dL Total Bilirubin (0.2-1.0) mg/dL AST (15-37) IU/L ALT (14-63) IU/L Alkaline Phosphatase (46-116) U/L Lactate Dehydrogenase 197 (81-234) U/L Troponin I (0.000-0.056) ng/mL C-Reactive Protein 1.40 H (0.00-0.90) mg/dL B-Natriuretic Peptide 75 (<100) PG/ML Total Protein (6.4-8.2) g/dL Albumin (3.4-5.0) g/dL Globulin (2.6-4.0) g/dL Albumin/Globulin Ratio (0.9-1.6) Procalcitonin (<0.10) ng/mL COVID-19 (RUBIN) (NEGATIVE) 01/12/20 01/12/20 01/12/20 Range/Units 10:28 10:39 11:33 WBC (4.0-11.0) K/uL RBC (4.30-5.90) M/uL Hgb (12.0-16.0) g/dL Hct (36.0-46.0) % MCV (80.0-98.0) fL MCH (27.0-32.0) pg MCHC (31.0-37.0) g/dL RDW Std Deviation (28.0-62.0) fl RDW Coeff of Vera (11.0-15.0) % Plt Count (150-400) K/uL MPV (7.40-12.00) fL Neut % (Auto) (48.0-80.0) % Lymph % (Auto) (16.0-40.0) % [place] % (Auto) (0.0-15.0) % Eos % (Auto) (0.0-7.0) % Baso % (Auto) (0.0-1.5) % Neut # (Auto) (1.4-5.7) K/uL Lymph # (Auto) (0.6-2.4) K/uL [place] # (Auto) (0.0-0.8) K/uL Eos # (Auto) (0.0-0.7) K/uL Baso # (Auto) (0.0-0.1) K/uL Nucleated RBC % /100WBC Nucleated RBCs # K/uL INR APTT (18.6-31.3) SEC D-Dimer, Quantitative (0.0-0.50) mg/L FEU ABG pH (7.35-7.45) ABG pCO2 (35-45) mmHG ABG pO2 (75-100) mmHG ABG HCO3 (22-26) mEq/L ABG Total CO2 ABG Base Excess (-2.0-2.0) Sodium 145 (136-145) mmol/L Potassium 4.2 (3.5-5.1) mmol/L Chloride 101 (98-107) mmol/L Carbon Dioxide 39.3 H (21.0-32.0) mmol/L BUN 12 (7.0-18.0) mg/dL Creatinine 0.5 L (0.6-1.0) mg/dL Est Cr Clr Drug Dosing 123.21 mL/min Estimated GFR (MDRD) > 60.0 ml/min Glucose 90 (74-106) mg/dL Calcium 8.2 L (8.5-10.1) mg/dL Phosphorus 3.5 (2.6-4.7) mg/dL Magnesium 2.0 (1.8-2.4) mg/dL Total Bilirubin 0.3 (0.2-1.0) mg/dL AST 17 (15-37) IU/L ALT 23 (14-63) IU/L Alkaline Phosphatase 102 (46-116) U/L Lactate Dehydrogenase (81-234) U/L Troponin I < 0.050 (0.000-0.056) ng/mL C-Reactive Protein (0.00-0.90) mg/dL B-Natriuretic Peptide (<100) PG/ML Total Protein 6.4 (6.4-8.2) g/dL Albumin 3.0 L (3.4-5.0) g/dL Globulin 3.4 (2.6-4.0) g/dL Albumin/Globulin Ratio 0.9 (0.9-1.6) Procalcitonin <0.05 (<0.10) ng/mL COVID-19 (RUBIN) NEGATIVE (NEGATIVE) 01/13/20 01/13/20 Range/Units 05:08 05:08 WBC 8.43 (4.0-11.0) K/uL RBC 4.95 (4.30-5.90) M/uL Hgb 15.0 (12.0-16.0) g/dL Hct 50.4 H (36.0-46.0) % MCV 101.8 H (80.0-98.0) fL MCH 30.3 (27.0-32.0) pg MCHC 29.8 L (31.0-37.0) g/dL RDW Std Deviation 55.1 (28.0-62.0) fl RDW Coeff of Vera 15 (11.0-15.0) % Plt Count 249 (150-400) K/uL MPV 11.00 (7.40-12.00) fL Neut % (Auto) 92.3 H (48.0-80.0) % Lymph % (Auto) 6.2 L (16.0-40.0) % [place] % (Auto) 1.4 (0.0-15.0) % Eos % (Auto) 0.1 (0.0-7.0) % Baso % (Auto) 0.0 (0.0-1.5) % Neut # (Auto) 7.8 H (1.4-5.7) K/uL Lymph # (Auto) 0.5 L (0.6-2.4) K/uL [place] # (Auto) 0.1 (0.0-0.8) K/uL Eos # (Auto) 0.0 (0.0-0.7) K/uL Baso # (Auto) 0.0 (0.0-0.1) K/uL Nucleated RBC % 0.0 /100WBC Nucleated RBCs # 0 K/uL INR APTT (18.6-31.3) SEC D-Dimer, Quantitative (0.0-0.50) mg/L FEU ABG pH (7.35-7.45) ABG pCO2 (35-45) mmHG ABG pO2 (75-100) mmHG ABG HCO3 (22-26) mEq/L ABG Total CO2 ABG Base Excess (-2.0-2.0) Sodium 140 (136-145) mmol/L Potassium 5.2 H (3.5-5.1) mmol/L Chloride 100 (98-107) mmol/L Carbon Dioxide 40.1 H (21.0-32.0) mmol/L BUN 12 (7.0-18.0) mg/dL Creatinine 0.6 (0.6-1.0) mg/dL Est Cr Clr Drug Dosing 102.68 mL/min Estimated GFR (MDRD) > 60.0 ml/min Glucose 148 H (74-106) mg/dL Calcium 8.3 L (8.5-10.1) mg/dL Phosphorus (2.6-4.7) mg/dL Magnesium (1.8-2.4) mg/dL Total Bilirubin (0.2-1.0) mg/dL AST (15-37) IU/L ALT (14-63) IU/L Alkaline Phosphatase (46-116) U/L Lactate Dehydrogenase (81-234) U/L Troponin I (0.000-0.056) ng/mL C-Reactive Protein (0.00-0.90) mg/dL B-Natriuretic Peptide (<100) PG/ML Total Protein (6.4-8.2) g/dL Albumin (3.4-5.0) g/dL Globulin (2.6-4.0) g/dL Albumin/Globulin Ratio (0.9-1.6) Procalcitonin (<0.10) ng/mL COVID-19 (RUBIN) (NEGATIVE) Med Orders - Current: Current Medications Acetaminophen (Tylenol) 650 mg PO Q4H PRN PRN Reason: Pain (Mild 1-3)/fever Albuterol/Ipratropium (Duoneb 3.0-0.5 Mg/3 Ml) 3 ml NEB Q4HRRT [facility] Last Admin: 01/13/20 06:08 Dose: 3 ml Documented by: Aspirin (Aspirin) 81 mg PO DAILY [facility] Docusate Sodium (Colace) 100 mg PO BID PRN PRN Reason: Constipation Heparin Sodium (Porcine) (Heparin Sodium) 5,000 units SUBCUT Q12H [facility] Last Admin: 01/13/20 03:00 Dose: 5,000 units Documented by: Lisinopril (Prinivil) 10 mg PO DAILY [facility] Methylprednisolone Sodium Succinate (Solu-Medrol) 40 mg IV BID [facility] Multivitamins/Minerals/Vitamin C (Tab-A-Cheo) 1 tab PO DAILY [facility] Ondansetron HCl (Zofran) 4 mg IVPUSH Q4H PRN PRN Reason: Nausea Fluticasone/Umeclidin/Vilanter [ Trelegy Ellipta 100- 62.5- 1 each INH DAILY [facility] Last Admin: 01/12/20 15:59 Dose: Not Given Documented by: Vitamin E (Dl, Tocopheryl Acet) [ Vitamin E] 1 Tab) 1 each PO DAILY [facility] Sodium Chloride (Saline Flush) 10 ml FLUSH ASDIRECTED PRN PRN Reason: Keep Vein Open Last Admin: 01/12/20 10:35 Dose: 10 ml Documented by: Sodium Chloride (Saline Flush) 2.5 ml FLUSH ASDIRECTED PRN PRN Reason: Keep Vein Open Last Admin: 01/12/20 10:35 Dose: 2.5 ml Documented by: Discontinued Medications Albuterol/Ipratropium (Duoneb 3.0-0.5 Mg/3 Ml) 3 ml NEB ONETIME ONE Stop: 01/12/20 09:59 Last Admin: 01/12/20 10:35 Dose: 3 ml Documented by: Dexamethasone (Dexamethasone) 6 mg IVPUSH ONETIME ONE Stop: 01/12/20 09:59 Last Admin: 01/12/20 10:35 Dose: 6 mg Documented by: Furosemide (Lasix) 40 mg IVPUSH NOW ONE Stop: 01/12/20 13:22 Last Admin: 01/12/20 13:55 Dose: 40 mg Documented by: Methylprednisolone Sodium Succinate (Solu-Medrol) 40 mg IV BID [facility] Last Admin: 01/12/20 22:22 Dose: Not Given Documented by: Methylprednisolone Sodium Succinate (Solu-Medrol) Confirm Administered Dose 40 mg .ROUTE .STK-MED ONE Stop: 01/12/20 21:40 Last Admin: 01/12/20 22:09 Dose: 40 mg Documented by: - Exam Quality Assessment: Supplemental Oxygen General: Alert, Oriented Neck: Supple, Trachea Midline Lungs: Normal Respiratory Effort, Decreased Breath Sounds. No: Clear to Auscultation, Rales, Rhonchi, Wheezing Cardiovascular: Regular Rate, Regular Rhythm GI/Abdominal Exam: Normal Bowel Sounds, Non-Tender, No Organomegaly Sepsis Event Note - Evaluation Sepsis Screening Result: No Definite Risk - Focused Exam Vital Signs: Vital Signs Temp Pulse Resp BP Pulse Ox 01/13/20 07:00 37.2 C 86 18 112/57 L 91 L 01/13/20 03:06 36.8 C 89 20 130/73 92 L 01/12/20 23:53 36.4 C 91 22 H 123/72 91 L Date Exam was Performed: 01/13/20 Time Exam was Performed: 08:34 - Problem List Review Problem List Initiated/Reviewed/Updated: Yes - My Orders Last 24 Hours: My Active Orders 01/13/20 08:32 BIPAP Adult [RT BiPAP/CPAP] [RC] ASDIRECTED - Plan Plan:: This 54 year old female admitted for acute on chronic hypoxic and hypercapnic respiratory failure, COPD exacerbation and suspected CHF 1. Acute on chronic hypoxic and hypercapnic respiratory failure - Continue oxygen therapy, goal for sats 88%, will give a trail of BiPAP to wean off the high flow - Continuous pulse ox - Duo-nebs scheduled - Hypercapnia is baseline 2. COPD: - Solumedrol 40 mg Q12h IV - Continue Trelegy inhalers - Duonebs as above 3. CHF, pulmonary HTN - was given Lasix 40 mg IV and had good output - ECHO 11/2019 revealed R ventricular overload and elevated pressures, consistent with COPD and pulmonary HTN. - Arrange outpatient follow up with Cardiology and Lexiscan. - Strict I/O, Daily weights and 2 L FR. Low Na diet. 4. HTN: - Continue Lisinopril VTE prophylaxis: Heparin Dispo: 1-2 days
[2020-01-13] MEDS: methylPREDNISolone Sodium Succinate 40 MG/1 ML SDV IV SCH ×2 (10:09→21:14)
[2020-01-13] MEDS: Lisinopril 10 MG Tab PO SCH (10:12)
[2020-01-13] MEDS: Aspirin 81 MG Tab.Chew PO SCH (10:12)
[2020-01-13] MEDS: Multivitamin Tab PO SCH (10:13)
[2020-01-13] MEDS: VITAMIN E PO SCH (10:16)
[2020-01-13] MEDS: Fluticasone/Umeclidin/Vilanter [Trelegy Ellipta 100-62.5- INH SCH (10:50)
[2020-01-14] MEDS: Heparin Sodium 5,000 Units/ML Vial SUBCUT SCH ×2 (02:43→14:51)
[2020-01-14] MEDS: Albuterol/Ipratropium 3.0-0.5 MG/3 ML Neb Soln NEB SCH ×6 (02:43→21:25)
[2020-01-14 05:54] LABS: BLOOD UREA NITROGEN,BUN 17 mg/dL (7.0-18.0); CARBON DIOXIDE,CO2 39.4 mmol/L (21.0-32.0); CHLORIDE,CL 97 mmol/L (98-107); GLUCOSE RANDOM 132 mg/dL (74-106); POTASSIUM,K 5.1 mmol/L (3.5-5.1); SODIUM,NA 137 mmol/L (136-145)
--- NOTE | 2020-01-14 08:20 | PCM.PN ---
- General Info Date of Service: 01/14/20 Admission Dx/Problem (Free Text): Admission Diagnosis/Problem Admission Diagnosis/Problem Respiratory failure with hypoxia Subjective Update: seen at bedside, no acute distress, slept well - Review of Systems General: Reports: Weakness. Denies: Fever, Fatigue Pulmonary: Reports: Cough. Denies: Shortness of Breath, Pleuritic Chest Pain Gastrointestinal: Denies: Abdominal Pain, Constipation, Decreased Appetite Genitourinary: Denies: Dysuria, Frequency, Burning Musculoskeletal: Denies: Neck Pain, Shoulder Pain, Arm Pain - Patient Data Vitals - Most Recent: Last Vital Signs Temp 36.2 C 01/14/20 08:01 Pulse 74 01/14/20 08:01 Resp 19 01/14/20 04:00 BP 113/66 01/14/20 08:01 Pulse Ox 93 L 01/14/20 08:01 Weight - Most Recent: 111.266 kg I&O - Last 24 Hours: Intake & Output 01/13/20 01/14/20 01/14/20 22:59 06:59 14:59 Intake Total 200 850 Output Total 1000 1400 Balance -800 -550 Lab Results Last 24 Hours: Laboratory Results - last 24 hr 01/14/20 01/14/20 Range/Units 05:08 05:08 WBC 9.01 (4.0-11.0) K/uL RBC 4.88 (4.30-5.90) M/uL Hgb 14.9 (12.0-16.0) g/dL Hct 49.2 H (36.0-46.0) % MCV 100.8 H (80.0-98.0) fL MCH 30.5 (27.0-32.0) pg MCHC 30.3 L (31.0-37.0) g/dL RDW Std Deviation 55.4 (28.0-62.0) fl RDW Coeff of Vera 15 (11.0-15.0) % Plt Count 277 (150-400) K/uL MPV 10.70 (7.40-12.00) fL Neut % (Auto) 89.0 H (48.0-80.0) % Lymph % (Auto) 7.4 L (16.0-40.0) % [place] % (Auto) 3.6 (0.0-15.0) % Eos % (Auto) 0.0 (0.0-7.0) % Baso % (Auto) 0.0 (0.0-1.5) % Neut # (Auto) 8.0 H (1.4-5.7) K/uL Lymph # (Auto) 0.7 (0.6-2.4) K/uL [place] # (Auto) 0.3 (0.0-0.8) K/uL Eos # (Auto) 0.0 (0.0-0.7) K/uL Baso # (Auto) 0.0 (0.0-0.1) K/uL Nucleated RBC % 0.0 /100WBC Nucleated RBCs # 0 K/uL Sodium 137 (136-145) mmol/L Potassium 5.1 (3.5-5.1) mmol/L Chloride 97 L (98-107) mmol/L Carbon Dioxide 39.4 H (21.0-32.0) mmol/L BUN 17 (7.0-18.0) mg/dL Creatinine 0.7 (0.6-1.0) mg/dL Est Cr Clr Drug Dosing 88.01 mL/min Estimated GFR (MDRD) > 60.0 ml/min Glucose 132 H (74-106) mg/dL Calcium 8.6 (8.5-10.1) mg/dL Phosphorus 4.2 (2.6-4.7) mg/dL Magnesium 2.1 (1.8-2.4) mg/dL [place] Results Last 24 Hours: Microbiology 01/12/20 10:35 Aerobic Blood Culture - Preliminary Blood - Venous - Lab Draw NO GROWTH AFTER 1 DAY Anaerobic Blood Culture - Preliminary NO GROWTH AFTER 1 DAY 01/12/20 10:28 Aerobic Blood Culture - Preliminary Blood - Venous NO GROWTH AFTER 1 DAY Anaerobic Blood Culture - Preliminary NO GROWTH AFTER 1 DAY Med Orders - Current: Current Medications Acetaminophen (Tylenol) 650 mg PO Q4H PRN PRN Reason: Pain (Mild 1-3)/fever Albuterol/Ipratropium (Duoneb 3.0-0.5 Mg/3 Ml) 3 ml NEB Q4HRRT [facility] Last Admin: 01/14/20 06:01 Dose: 3 ml Documented by: Aspirin (Aspirin) 81 mg PO DAILY [facility] Last Admin: 01/13/20 10:12 Dose: 81 mg Documented by: Docusate Sodium (Colace) 100 mg PO BID PRN PRN Reason: Constipation Heparin Sodium (Porcine) (Heparin Sodium) 5,000 units SUBCUT Q12H [facility] Last Admin: 01/14/20 02:43 Dose: 5,000 units Documented by: Lisinopril (Prinivil) 10 mg PO DAILY [facility] Last Admin: 01/13/20 10:12 Dose: 10 mg Documented by: Methylprednisolone Sodium Succinate (Solu-Medrol) 40 mg IV BID [facility] Last Admin: 01/13/20 21:14 Dose: 40 mg Documented by: Multivitamins/Minerals/Vitamin C (Tab-A-Cheo) 1 tab PO DAILY [facility] Last Admin: 01/13/20 10:13 Dose: 1 tab Documented by: Ondansetron HCl (Zofran) 4 mg IVPUSH Q4H PRN PRN Reason: Nausea Fluticasone/Umeclidin/Vilanter [ Trelegy Ellipta 100- 62.5- 1 each INH DAILY [facility] Last Admin: 01/13/20 10:50 Dose: 1 each Documented by: Vitamin E (Dl, Tocopheryl Acet) [ Vitamin E] 1 Tab) 1 each PO DAILY [facility] Last Admin: 01/13/20 10:16 Dose: Not Given Documented by: Sodium Chloride (Saline Flush) 10 ml FLUSH ASDIRECTED PRN PRN Reason: Keep Vein Open Last Admin: 01/12/20 10:35 Dose: 10 ml Documented by: Sodium Chloride (Saline Flush) 2.5 ml FLUSH ASDIRECTED PRN PRN Reason: Keep Vein Open Last Admin: 01/12/20 10:35 Dose: 2.5 ml Documented by: Discontinued Medications Albuterol/Ipratropium (Duoneb 3.0-0.5 Mg/3 Ml) 3 ml NEB ONETIME ONE Stop: 01/12/20 09:59 Last Admin: 01/12/20 10:35 Dose: 3 ml Documented by: Dexamethasone (Dexamethasone) 6 mg IVPUSH ONETIME ONE Stop: 01/12/20 09:59 Last Admin: 01/12/20 10:35 Dose: 6 mg Documented by: Furosemide (Lasix) 40 mg IVPUSH NOW ONE Stop: 01/12/20 13:22 Last Admin: 07/24/20 13:55 Dose: 40 mg Documented by: Methylprednisolone Sodium Succinate (Solu-Medrol) 40 mg IV BID [facility] Last Admin: 01/12/20 22:22 Dose: Not Given Documented by: Methylprednisolone Sodium Succinate (Solu-Medrol) Confirm Administered Dose 40 mg .ROUTE .STK-MED ONE Stop: 01/12/20 21:40 Last Admin: 01/12/20 22:09 Dose: 40 mg Documented by: Sepsis Event Note - Evaluation Sepsis Screening Result: No Definite Risk - Focused Exam Vital Signs: Vital Signs Temp Pulse Resp BP Pulse Ox 01/14/20 08:01 36.2 C 74 113/66 93 L 01/14/20 04:00 36.1 C 68 19 129/64 93 L 01/14/20 00:26 36.1 C 71 20 124/61 91 L Date Exam was Performed: 01/14/20 Time Exam was Performed: 20:45 - Problem List & Annotations (1) Acute on chronic respiratory failure with hypoxia and hypercapnia SNOMED Code(s): 86900863811368 Code(s): J96.21 - ACUTE AND CHRONIC RESPIRATORY FAILURE WITH HYPOXIA; J96.22 - ACUTE AND CHRONIC RESPIRATORY FAILURE WITH HYPERCAPNIA Status: Acute Current Visit: No (2) CHF (congestive heart failure) SNOMED Code(s): 16150389 Code(s): I50.9 - HEART FAILURE, UNSPECIFIED Status: Acute Current Visit: Yes (3) COPD exacerbation SNOMED Code(s): 846725844 Code(s): J44.1 - CHRONIC OBSTRUCTIVE PULMONARY DISEASE W (ACUTE) EXACERBATION Status: Acute Current Visit: Yes (4) Respiratory failure with hypoxia SNOMED Code(s): 92132761330993473 Code(s): J96.91 - RESPIRATORY FAILURE, UNSPECIFIED WITH HYPOXIA Status: Acute Current Visit: Yes (5) HTN (hypertension) SNOMED Code(s): 67738081 Code(s): I10 - ESSENTIAL (PRIMARY) HYPERTENSION Status: Chronic Current Visit: Yes - Problem List Review Problem List Initiated/Reviewed/Updated: Yes - My Orders Last 24 Hours: My Active Orders 01/13/20 08:32 BIPAP Adult [RT BiPAP/CPAP] [RC] ASDIRECTED 01/13/20 12:54 Admission Status [Patient Status] [ADT] Routine - Plan Plan:: This 54 year old female admitted for acute on chronic hypoxic and hypercapnic respiratory failure, COPD exacerbation and suspected CHF 1. Acute on chronic hypoxic and hypercapnic respiratory failure - Continue oxygen therapy, goal for sats 88%, will give a trail of BiPAP to wean off the high flow, currently on 5 Ls -cont BiPAP at night - Duo-nebs scheduled - Hypercapnia is baseline 2. COPD: - Solumedrol 40 mg Q12h IV - Continue Trelegy inhalers - Duonebs as above 3. CHF, pulmonary HTN - was given Lasix 40 mg IV and had good output - ECHO 11/2019 revealed R ventricular overload and elevated pressures, consistent with COPD and pulmonary HTN. - Arrange outpatient follow up with Cardiology and Lexiscan. - Strict I/O, Daily weights and 2 L FR. Low Na diet. 4. HTN: - Continue Lisinopril VTE prophylaxis: Heparin Dispo: 1-2 days
[2020-01-14] MEDS: Multivitamin Tab PO SCH (08:22)
[2020-01-14] MEDS: Lisinopril 10 MG Tab PO SCH (08:23)
[2020-01-14] MEDS: Aspirin 81 MG Tab.Chew PO SCH (08:24)
[2020-01-14] MEDS: methylPREDNISolone Sodium Succinate 40 MG/1 ML SDV IV SCH ×2 (08:25→21:00)
[2020-01-14] MEDS: Fluticasone/Umeclidin/Vilanter [Trelegy Ellipta 100-62.5- INH SCH (08:28)
[2020-01-14] MEDS: VITAMIN E PO SCH (09:34)
[2020-01-14] MEDS ORDERED: Lactated Ringers 500 ML IV ONE (16:23)
[2020-01-14] MEDS: Lactated Ringers 1,000 ML IV SCH ×2 (17:28→21:03)
[2020-01-15] MEDS: Albuterol/Ipratropium 3.0-0.5 MG/3 ML Neb Soln NEB SCH ×3 (02:57→09:53)
[2020-01-15] MEDS: Heparin Sodium 5,000 Units/ML Vial SUBCUT SCH (03:09)
[2020-01-15 06:23] LABS: BLOOD UREA NITROGEN,BUN 19 mg/dL (7.0-18.0); CARBON DIOXIDE,CO2 40.4 mmol/L (21.0-32.0); CHLORIDE,CL 98 mmol/L (98-107); GLUCOSE RANDOM 131 mg/dL (74-106); SODIUM,NA 138 mmol/L (136-145)
[2020-01-15] MEDS: Lactated Ringers 1,000 ML IV SCH (07:29)
[2020-01-15] MEDS: Lisinopril 10 MG Tab PO SCH (08:22)
[2020-01-15] MEDS: Aspirin 81 MG Tab.Chew PO SCH (08:22)
[2020-01-15] MEDS: methylPREDNISolone Sodium Succinate 40 MG/1 ML SDV IV SCH (08:23)
[2020-01-15] MEDS: Fluticasone/Umeclidin/Vilanter [Trelegy Ellipta 100-62.5- INH SCH (08:23)
[2020-01-15] MEDS: Multivitamin Tab PO SCH (08:24)
[2020-01-15] MEDS: VITAMIN E PO SCH (08:24)
--- NOTE | 2020-01-15 11:17 | PCM.PN ---
- General Info Date of Service: 01/15/20 Subjective Update: No complaints overnight. Reports eating and having bowel movements. Currently on NC 4L this morning. Reports feeling better today. - Patient Data Vitals - Most Recent: Last Vital Signs Temp 36.7 C 01/15/20 08:05 Pulse 87 01/15/20 08:05 Resp 20 01/15/20 08:05 BP 128/66 01/15/20 08:22 Pulse Ox 90 L 01/15/20 08:05 Weight - Most Recent: 110.314 kg I&O - Last 24 Hours: Intake & Output 01/14/20 01/15/20 01/15/20 22:59 06:59 14:59 Intake Total 537 2106 Output Total 2200 2800 Balance -6273 -024 Lab Results Last 24 Hours: Laboratory Results - last 24 hr 01/15/20 01/15/20 Range/Units 05:49 05:57 WBC 10.55 (4.0-11.0) K/uL RBC 5.14 (4.30-5.90) M/uL Hgb 15.9 (12.0-16.0) g/dL Hct 50.3 H (36.0-46.0) % MCV 97.9 (80.0-98.0) fL MCH 30.9 (27.0-32.0) pg MCHC 31.6 (31.0-37.0) g/dL RDW Std Deviation 54.6 (28.0-62.0) fl RDW Coeff of Vera 15 (11.0-15.0) % Plt Count 298 (150-400) K/uL MPV 10.30 (7.40-12.00) fL Neut % (Auto) 87.7 H (48.0-80.0) % Lymph % (Auto) 7.0 L (16.0-40.0) % [place] % (Auto) 5.2 (0.0-15.0) % Eos % (Auto) 0.0 (0.0-7.0) % Baso % (Auto) 0.1 (0.0-1.5) % Neut # (Auto) 9.3 H (1.4-5.7) K/uL Lymph # (Auto) 0.7 (0.6-2.4) K/uL [place] # (Auto) 0.6 (0.0-0.8) K/uL Eos # (Auto) 0.0 (0.0-0.7) K/uL Baso # (Auto) 0.0 (0.0-0.1) K/uL Nucleated RBC % 0.0 /100WBC Nucleated RBCs # 0 K/uL Sodium 138 (136-145) mmol/L Potassium 5.0 (3.5-5.1) mmol/L Chloride 98 (98-107) mmol/L Carbon Dioxide 40.4 H (21.0-32.0) mmol/L BUN 19 H (7.0-18.0) mg/dL Creatinine 0.7 (0.6-1.0) mg/dL Est Cr Clr Drug Dosing 88.01 mL/min Estimated GFR (MDRD) > 60.0 ml/min Glucose 131 H (74-106) mg/dL Calcium 8.8 (8.5-10.1) mg/dL Phosphorus 5.3 H (2.6-4.7) mg/dL Magnesium 2.2 (1.8-2.4) mg/dL [place]an Results Last 24 Hours: Microbiology 01/12/20 10:35 Aerobic Blood Culture - Preliminary Blood - Venous - Lab Draw NO GROWTH AFTER 3 DAYS Anaerobic Blood Culture - Preliminary NO GROWTH AFTER 3 DAYS 01/12/20 10:28 Aerobic Blood Culture - Preliminary Blood - Venous NO GROWTH AFTER 3 DAYS Anaerobic Blood Culture - Preliminary NO GROWTH AFTER 3 DAYS Med Orders - Current: Current Medications Acetaminophen (Tylenol) 650 mg PO Q4H PRN PRN Reason: Pain (Mild 1-3)/fever Albuterol/Ipratropium (Duoneb 3.0-0.5 Mg/3 Ml) 3 ml NEB Q4HRRT [facility] Last Admin: 01/15/20 09:53 Dose: 3 ml Documented by: Aspirin (Aspirin) 81 mg PO DAILY [facility] Last Admin: 01/15/20 08:22 Dose: 81 mg Documented by: Docusate Sodium (Colace) 100 mg PO BID PRN PRN Reason: Constipation Heparin Sodium (Porcine) (Heparin Sodium) 5,000 units SUBCUT Q12H [facility] Last Admin: 01/15/20 03:09 Dose: 5,000 units Documented by: Lactated Ringer's (Ringers, Lactated) 1,000 mls @ 125 mls/hr IV ASDIRECTED [facility] Last Admin: 01/15/20 07:29 Dose: 100 mls/hr Documented by: Lisinopril (Prinivil) 10 mg PO DAILY [facility] Last Admin: 01/15/20 08:22 Dose: 10 mg Documented by: Methylprednisolone Sodium Succinate (Solu-Medrol) 40 mg IV BID [facility] Last Admin: 01/15/20 08:23 Dose: 40 mg Documented by: Multivitamins/Minerals/Vitamin C (Tab-A-Cheo) 1 tab PO DAILY [facility] Last Admin: 01/15/20 08:24 Dose: Not Given Documented by: Ondansetron HCl (Zofran) 4 mg IVPUSH Q4H PRN PRN Reason: Nausea Fluticasone/Umeclidin/Vilanter [ Trelegy Ellipta 100- 62.5- 1 each INH DAILY [facility] Last Admin: 01/15/20 08:23 Dose: 1 each Documented by: Vitamin E (Dl, Tocopheryl Acet) [ Vitamin E] 1 Tab) 1 each PO DAILY [facility] Last Admin: 01/15/20 08:24 Dose: Not Given Documented by: Sodium Chloride (Saline Flush) 10 ml FLUSH ASDIRECTED PRN PRN Reason: Keep Vein Open Last Admin: 01/12/20 10:35 Dose: 10 ml Documented by: Sodium Chloride (Saline Flush) 2.5 ml FLUSH ASDIRECTED PRN PRN Reason: Keep Vein Open Last Admin: 01/12/20 10:35 Dose: 2.5 ml Documented by: Discontinued Medications Albuterol/Ipratropium (Duoneb 3.0-0.5 Mg/3 Ml) 3 ml NEB ONETIME ONE Stop: 01/12/20 09:59 Last Admin: 01/12/20 10:35 Dose: 3 ml Documented by: Dexamethasone (Dexamethasone) 6 mg IVPUSH ONETIME ONE Stop: 01/12/20 09:59 Last Admin: 01/12/20 10:35 Dose: 6 mg Documented by: Furosemide (Lasix) 40 mg IVPUSH NOW ONE Stop: 01/12/20 13:22 Last Admin: 01/12/20 13:55 Dose: 40 mg Documented by: Lactated Ringer's (Ringers, Lactated) 500 mls @ 999 mls/hr IV ONETIME ONE Stop: 01/14/20 16:53 Last Admin: 01/14/20 16:49 Dose: 999 mls/hr Documented by: Methylprednisolone Sodium Succinate (Solu-Medrol) 40 mg IV BID [facility] Last Admin: 01/12/20 22:22 Dose: Not Given Documented by: Methylprednisolone Sodium Succinate (Solu-Medrol) Confirm Administered Dose 40 mg .ROUTE .STK-MED ONE Stop: 01/12/20 21:40 Last Admin: 01/12/20 22:09 Dose: 40 mg Documented by: - Exam General: Alert, Oriented, Cooperative, No Acute Distress Lungs: Clear to Auscultation, Normal Respiratory Effort. No: Wheezing Cardiovascular: Regular Rate, Regular Rhythm GI/Abdominal Exam: Normal Bowel Sounds, Soft, Non-Tender, No Distention Extremities: Normal Inspection, No Pedal Edema Sepsis Event Note - Evaluation Sepsis Screening Result: No Definite Risk - Focused Exam Vital Signs: Vital Signs Temp Pulse Resp BP BP Pulse Ox 01/15/20 08:22 128/66 01/15/20 08:05 36.7 C 87 20 128/66 90 L 01/15/20 03:14 36.5 C 83 20 113/57 L 91 L 01/15/20 00:05 36.2 C 73 23 H 117/67 91 L Date Exam was Performed: 01/15/20 Time Exam was Performed: 11:25 - Problem List Review Problem List Initiated/Reviewed/Updated: Yes - Plan Plan:: Assessment and Plan: 1. Acute on chronic hypoxic and hypercapnic respiratory failure secondary to COPD exacerbation: - Continue supplemental oxygen. Patient currently at baseline oxygen requirement of 4L. Continue IV solumedrol 40 mg BID and Trelegy inhalers. Continue BiPAP overnight and DuoNebs. - COVID19 test negative. Blood cultures negative. - Reviewed home sleep study results from 12/26/19 indicating severe sleep related hypoxemia. Will contacted [facility] in [place], [place] to see if patient qualifies for CPAP or BiPAP machine. Patient will require pulmonary evaluation on discharge. 2. CHF and pulmonary HTN: - Continue strict I/O's, daily standing weights, 2L fluid restriction and low Na diet. - ECHO 11/2019 revealed R ventricular overload and elevated pressures, consistent with COPD and pulmonary HTN. - Will require follow-up with Cardiology and Lexiscan. 3. Hypertension: - Continue Lisinopril. 4. DVT prophylaxis: Heparin.
[2020-01-15 14:10] VITALS: BP 135/74; PULSE 91
--- NOTE | 2020-01-15 14:27 | PCM.DCSUM1 ---
<Costa Lawrence - Last Filed: 01/15/20 14:30> Discharge Summary - Hospital Course Free Text/Narrative:: 54-year-old female admitted for acute on chronic hypoxic and hypercapnic respiratory failure secondary to COPD exacerbation. Patient has a PMH of tobacco abuse and HTN. Patient's home oxygen baseline requirement is 4L. Patient treated with supplemental oxygen, BiPAP overnight, DuoNebs and IV solumedrol. CXR on admission showed pulmonary vessel congestion. COVID19 test was negative. Blood cultures were negative. Patient's CXR suggested early CHF and patient was given a dose of IV lasix and had good output. ECHO from November 2019 showed right ventricular overload and increased pressure consistent with COPD and pulmonary HTN. Patient was set up with cardiology referral on discharge. Furthermore, home sleep study results from 12/26/19 showed no obstructive sleep apnea but patient was noted to have severe hypoxemia while asleep. A pulmonology referral was recommended by sleep specialist. Patient set up with pulmonology referral on discharge. Split night sleep study was also ordered. By day of discharge, patient weaned down to baseline home oxygen requirement of 4L. She was discharged on a 12-day prednisone taper and advised to follow-up with her PCP and consult appointments. - Discharge Data Discharge Date: 01/15/20 Discharge Disposition: Home, Self-Care 01 Condition: Stable - Referral to Home Health Primary Care Physician: Sanjuanita Vasquez DO - Patient Instructions Diet: Low Sodium (< 2 g of salt per day) Fluid Restriction: 2000 mL Activity: As Tolerated, No Strenuous Activities Notify Provider of: Fever, Increased Pain, Swelling and Redness, Drainage, Nausea and/or Vomiting - Discharge Plan *PRESCRIPTION DRUG MONITORING PROGRAM REVIEWED*: Not Applicable *COPY OF PRESCRIPTION DRUG MONITORING REPORT IN PATIENT VALENTE: Not Applicable Prescriptions/Med Rec: predniSONE [Prednisone] 10 mg PO DAILY 12 Days #28 tablet Home Medications: Home Meds Albuterol Sulfate 2.5 mg IH Q4H PRN 12/05/19 [History] Aspirin 81 mg PO DAILY 12/05/19 [History] Cholecalciferol (Vitamin D3) [Vitamin D3] 50 mcg PO DAILY 12/05/19 [History] Multivitamin [Multi-Vitamin Daily] 1 tab PO DAILY 12/05/19 [History] Vitamin E (Dl,Tocopheryl Acet) [Vitamin E] 1 tab PO DAILY 12/05/19 [History] lisinopriL [Lisinopril] 10 mg PO DAILY 12/05/19 [History] Fluticasone/Umeclidin/Vilanter [Trelegy Ellipta 100-62.5-25 MCG] 1 puff INH ONETIME 30 Days #1 inhaler 12/11/19 [Rx] predniSONE [Prednisone] 10 mg PO DAILY 12 Days #28 tablet 01/15/20 [Rx] Oxygen Therapy Mode: Nasal Cannula Oxygen Flow Rate (L/min): 4 Patient Handouts: Chronic Obstructive Pulmonary Disease Exacerbation, [id number], Sleep Apnea, Prednisone tablets Referrals: Sam Watkins MD [Physician] - 02/27/20 11:00 am (Arrive 15 minutes early with photo ID, insurance card, and a mask. ) Hernesto Gong MD [Ordering Only Provider] - 01/17/20 2:45 pm (The appointment was not able to be made with Pedro, because she has no appointment available. Arrive 15 minutes early with a photo ID, insurance card, and a mask. ) Emerson Hanley MD [Consulting Physician] - - Discharge Summary/Plan Comment DC Time >30 min.: No - Patient Data Vitals - Most Recent: Last Vital Signs Temp 37.1 C 01/15/20 12:00 Pulse 91 01/15/20 12:00 Resp 20 01/15/20 12:00 BP 135/74 01/15/20 12:00 Pulse Ox 90 L 01/15/20 12:00 Weight - Most Recent: 110.314 kg I&O - Last 24 hours: Intake & Output 01/14/20 01/15/20 01/15/20 22:59 06:59 14:59 Intake Total 537 2106 Output Total 2209 3460 Balance -3757 -350 Lab Results - Last 24 hrs: Laboratory Results - last 24 hr 01/15/20 01/15/20 Range/Units 05:49 05:57 WBC 10.55 (4.0-11.0) K/uL RBC 5.14 (4.30-5.90) M/uL Hgb 15.9 (12.0-16.0) g/dL Hct 50.3 H (36.0-46.0) % MCV 97.9 (80.0-98.0) fL MCH 30.9 (27.0-32.0) pg MCHC 31.6 (31.0-37.0) g/dL RDW Std Deviation 54.6 (28.0-62.0) fl RDW Coeff of Vera 15 (11.0-15.0) % Plt Count 298 (150-400) K/uL MPV 10.30 (7.40-12.00) fL Neut % (Auto) 87.7 H (48.0-80.0) % Lymph % (Auto) 7.0 L (16.0-40.0) % [place] % (Auto) 5.2 (0.0-15.0) % Eos % (Auto) 0.0 (0.0-7.0) % Baso % (Auto) 0.1 (0.0-1.5) % Neut # (Auto) 9.3 H (1.4-5.7) K/uL Lymph # (Auto) 0.7 (0.6-2.4) K/uL [place] # (Auto) 0.6 (0.0-0.8) K/uL Eos # (Auto) 0.0 (0.0-0.7) K/uL Baso # (Auto) 0.0 (0.0-0.1) K/uL Nucleated RBC % 0.0 /100WBC Nucleated RBCs # 0 K/uL Sodium 138 (136-145) mmol/L Potassium 5.0 (3.5-5.1) mmol/L Chloride 98 (98-107) mmol/L Carbon Dioxide 40.4 H (21.0-32.0) mmol/L BUN 19 H (7.0-18.0) mg/dL Creatinine 0.7 (0.6-1.0) mg/dL Est Cr Clr Drug Dosing 88.01 mL/min Estimated GFR (MDRD) > 60.0 ml/min Glucose 131 H (74-106) mg/dL Calcium 8.8 (8.5-10.1) mg/dL Phosphorus 5.3 H (2.6-4.7) mg/dL Magnesium 2.2 (1.8-2.4) mg/dL JAMES Results - Last 24 hrs: Microbiology 01/12/20 10:35 Aerobic Blood Culture - Preliminary Blood - Venous - Lab Draw NO GROWTH AFTER 3 DAYS Anaerobic Blood Culture - Preliminary NO GROWTH AFTER 3 DAYS 01/12/20 10:28 Aerobic Blood Culture - Preliminary Blood - Venous NO GROWTH AFTER 3 DAYS Anaerobic Blood Culture - Preliminary NO GROWTH AFTER 3 DAYS Med Orders - Current: Current Medications Acetaminophen (Tylenol) 650 mg PO Q4H PRN PRN Reason: Pain (Mild 1-3)/fever Albuterol/Ipratropium (Duoneb 3.0-0.5 Mg/3 Ml) 3 ml NEB Q4HRRT [facility] Last Admin: 01/15/20 09:53 Dose: 3 ml Documented by: Aspirin (Aspirin) 81 mg PO DAILY [facility] Last Admin: 01/15/20 08:22 Dose: 81 mg Documented by: Docusate Sodium (Colace) 100 mg PO BID PRN PRN Reason: Constipation Heparin Sodium (Porcine) (Heparin Sodium) 5,000 units SUBCUT Q12H [facility] Last Admin: 01/15/20 03:09 Dose: 5,000 units Documented by: Lactated Ringer's (Ringers, Lactated) 1,000 mls @ 125 mls/hr IV ASDIRECTED [facility] Last Admin: 01/15/20 07:29 Dose: 100 mls/hr Documented by: Lisinopril (Prinivil) 10 mg PO DAILY [facility] Last Admin: 01/15/20 08:22 Dose: 10 mg Documented by: Methylprednisolone Sodium Succinate (Solu-Medrol) 40 mg IV BID [facility] Last Admin: 01/15/20 08:23 Dose: 40 mg Documented by: Multivitamins/Minerals/Vitamin C (Tab-A-Cheo) 1 tab PO DAILY [facility] Last Admin: 01/15/20 08:24 Dose: Not Given Documented by: Ondansetron HCl (Zofran) 4 mg IVPUSH Q4H PRN PRN Reason: Nausea Fluticasone/Umeclidin/Vilanter [ Trelegy Ellipta 100- 62.5- 1 each INH DAILY [facility] Last Admin: 01/15/20 08:23 Dose: 1 each Documented by: Vitamin E (Dl, Tocopheryl Acet) [ Vitamin E] 1 Tab) 1 each PO DAILY [facility] Last Admin: 01/15/20 08:24 Dose: Not Given Documented by: Sodium Chloride (Saline Flush) 10 ml FLUSH ASDIRECTED PRN PRN Reason: Keep Vein Open Last Admin: 01/12/20 10:35 Dose: 10 ml Documented by: Sodium Chloride (Saline Flush) 2.5 ml FLUSH ASDIRECTED PRN PRN Reason: Keep Vein Open Last Admin: 01/12/20 10:35 Dose: 2.5 ml Documented by: Discontinued Medications Albuterol/Ipratropium (Duoneb 3.0-0.5 Mg/3 Ml) 3 ml NEB ONETIME ONE Stop: 01/12/20 09:59 Last Admin: 01/12/20 10:35 Dose: 3 ml Documented by: Dexamethasone (Dexamethasone) 6 mg IVPUSH ONETIME ONE Stop: 01/12/20 09:59 Last Admin: 01/12/20 10:35 Dose: 6 mg Documented by: Furosemide (Lasix) 40 mg IVPUSH NOW ONE Stop: 01/12/20 13:22 Last Admin: 01/12/20 13:55 Dose: 40 mg Documented by: Lactated Ringer's (Ringers, Lactated) 500 mls @ 999 mls/hr IV ONETIME ONE Stop: 01/14/20 16:53 Last Admin: 01/14/20 16:49 Dose: 999 mls/hr Documented by: Methylprednisolone Sodium Succinate (Solu-Medrol) 40 mg IV BID [facility] Last Admin: 01/12/20 22:22 Dose: Not Given Documented by: Methylprednisolone Sodium Succinate (Solu-Medrol) Confirm Administered Dose 40 mg .ROUTE .STK-MED ONE Stop: 01/12/20 21:40 Last Admin: 01/12/20 22:09 Dose: 40 mg Documented by: <Mickey Palafox - Last Filed: 01/23/20 15:37> Discharge Summary - Hospital Course Free Text/Narrative:: Patient seen and examined by me independently, management was discussed with the resident as outlined above. - Referral to Home Health Primary Care Physician: Sanjuanita Vasquez DO - Discharge Diagnosis/Problem(s) (1) Acute on chronic respiratory failure with hypoxia and hypercapnia SNOMED Code(s): 54646841892468 ICD Code: J96.21 - ACUTE AND CHRONIC RESPIRATORY FAILURE WITH HYPOXIA; J96.22 - ACUTE AND CHRONIC RESPIRATORY FAILURE WITH HYPERCAPNIA Status: Acute (2) CHF (congestive heart failure) SNOMED Code(s): 47818126 ICD Code: I50.9 - HEART FAILURE, UNSPECIFIED Status: Acute (3) COPD exacerbation SNOMED Code(s): 746041479 ICD Code: J44.1 - CHRONIC OBSTRUCTIVE PULMONARY DISEASE W (ACUTE) EXACERBATION Status: Acute (4) Respiratory failure with hypoxia SNOMED Code(s): 81965318231934476 ICD Code: J96.91 - RESPIRATORY FAILURE, UNSPECIFIED WITH HYPOXIA Status: Acute (5) HTN (hypertension) SNOMED Code(s): 61493573 ICD Code: I10 - ESSENTIAL (PRIMARY) HYPERTENSION Status: Chronic - Patient Data Vitals - Most Recent: Last Vital Signs Temp 37.1 C 01/15/20 12:00 Pulse 91 01/15/20 12:00 Resp 20 01/15/20 12:00 BP 135/74 01/15/20 12:00 Pulse Ox 90 L 01/15/20 15:31 Med Orders - Current: Current Medications Discontinued Medications Acetaminophen (Tylenol) 650 mg PO Q4H PRN PRN Reason: Pain (Mild 1-3)/fever Albuterol/Ipratropium (Duoneb 3.0-0.5 Mg/3 Ml) 3 ml NEB ONETIME ONE Stop: 01/12/20 09:59 Last Admin: 01/12/20 10:35 Dose: 3 ml Documented by: Albuterol/Ipratropium (Duoneb 3.0-0.5 Mg/3 Ml) 3 ml NEB Q4HRRT [facility] Last Admin: 01/15/20 09:53 Dose: 3 ml Documented by: Aspirin (Aspirin) 81 mg PO DAILY [facility] Last Admin: 01/15/20 08:22 Dose: 81 mg Documented by: Dexamethasone (Dexamethasone) 6 mg IVPUSH ONETIME ONE Stop: 01/12/20 09:59 Last Admin: 01/12/20 10:35 Dose: 6 mg Documented by: Docusate Sodium (Colace) 100 mg PO BID PRN PRN Reason: Constipation Furosemide (Lasix) 40 mg IVPUSH NOW ONE Stop: 01/12/20 13:22 Last Admin: 01/12/20 13:55 Dose: 40 mg Documented by: Heparin Sodium (Porcine) (Heparin Sodium) 5,000 units SUBCUT Q12H [facility] Last Admin: 01/15/20 03:09 Dose: 5,000 units Documented by: Lactated Ringer's (Ringers, Lactated) 500 mls @ 999 mls/hr IV ONETIME ONE Stop: 01/14/20 16:53 Last Admin: 01/14/20 16:49 Dose: 999 mls/hr Documented by: Lactated Ringer's (Ringers, Lactated) 1,000 mls @ 125 mls/hr IV ASDIRECTED [facility] Last Admin: 01/15/20 07:29 Dose: 100 mls/hr Documented by: Lisinopril (Prinivil) 10 mg PO DAILY [facility] Last Admin: 01/15/20 08:22 Dose: 10 mg Documented by: Methylprednisolone Sodium Succinate (Solu-Medrol) 40 mg IV BID [facility] Last Admin: 01/12/20 22:22 Dose: Not Given Documented by: Methylprednisolone Sodium Succinate (Solu-Medrol) Confirm Administered Dose 40 mg .ROUTE .STK-MED ONE Stop: 01/12/20 21:40 Last Admin: 01/12/20 22:09 Dose: 40 mg Documented by: Methylprednisolone Sodium Succinate (Solu-Medrol) 40 mg IV BID [facility] Last Admin: 01/15/20 08:23 Dose: 40 mg Documented by: Multivitamins/Minerals/Vitamin C (Tab-A-Cheo) 1 tab PO DAILY [facility] Last Admin: 01/15/20 08:24 Dose: Not Given Documented by: Ondansetron HCl (Zofran) 4 mg IVPUSH Q4H PRN PRN Reason: Nausea Fluticasone/Umeclidin/Vilanter [ Trelegy Ellipta 100- 62.5- 1 each INH DAILY [facility] Last Admin: 01/15/20 08:23 Dose: 1 each Documented by: Vitamin E (Dl, Tocopheryl Acet) [ Vitamin E] 1 Tab) 1 each PO DAILY [facility] Last Admin: 01/15/20 08:24 Dose: Not Given Documented by: Sodium Chloride (Saline Flush) 10 ml FLUSH ASDIRECTED PRN PRN Reason: Keep Vein Open Last Admin: 01/12/20 10:35 Dose: 10 ml Documented by: Sodium Chloride (Saline Flush) 2.5 ml FLUSH ASDIRECTED PRN PRN Reason: Keep Vein Open Last Admin: 01/12/20 10:35 Dose: 2.5 ml Documented by:
== END 2020-01-15 16:19 | disposition home or self-care (01) | DRG 189 ==
LOC: MW.ED 09:31 → MW.MS 12:07 → OBSVTOIN 01-13 12:54
PROVIDERS: ADMIT Student in an Organized Health Care Education/Training Program; ATTEND Student in an Organized Health Care Education/Training Program
PROC: 5A09457 Assistance with Respiratory Ventilation, 24-96 Consecutive Hours, Continuous Positive Airway Pressure (ICD-10-PCS; principal; 2020-01-13)
DX: J96.21 Acute and chronic respiratory failure with hypoxia (principal); J44.1 Chronic obstructive pulmonary disease with (acute) exacerbation; J96.22 Acute and chronic respiratory failure with hypercapnia; I27.20 Pulmonary hypertension, unspecified; E78.00 Pure hypercholesterolemia, unspecified; G89.29 Other chronic pain; Z20.828 Contact with and (suspected) exposure to other viral communicable diseases; M54.9 Dorsalgia, unspecified; I11.0 Hypertensive heart disease with heart failure; I50.9 Heart failure, unspecified; E66.9 Obesity, unspecified; Z99.81 Dependence on supplemental oxygen; Z79.52 Long term (current) use of systemic steroids; Z79.82 Long term (current) use of aspirin; Z79.899 Other long term (current) drug therapy; Z88.1 Allergy status to other antibiotic agents; Z88.5 Allergy status to narcotic agent; Z98.51 Tubal ligation status; Z87.891 Personal history of nicotine dependence
CPT/HCPCS: 36415; 36600; 71046; 71046-26; 80048; 80053; 82803; 83615; 83735; 83880; 84100; 84145; 84484; 85025; 85379; 85610; 85730; 86140; 87040; 93005; 94640; 94660; 96372; 96374; 96375; 99291; A9270-GY; G0378; J1100; J1644; J1940; J2920; J7120; J7620-GY; U0002

== ENCOUNTER 2020-08-06 17:02 | Observation (INO) | payer OTHER ==
--- NOTE | 2020-08-06 17:04 | EDM.PDOC ---
ED HPI GENERAL MEDICAL PROBLEM - General Stated Complaint: COPD Time Seen by Provider: 08/06/20 17:03 Source of Information: Reports: Patient History Limitations: Reports: No Limitations - History of Present Illness INITIAL COMMENTS - FREE TEXT/NARRATIVE: 55-year-old female past medical history COPD on 2 L home O2, hypertension, congestive heart failure presents for shortness of breath. Patient was seen by Dr. Jauregui as an outpatient and was referred to ER for hypoxemia to low 80s and dropping to 40s with ambulation. Of note patient has been on steroids and antibiotics x2-weeks with no improvement. Patient notes that she has had to increase her oxygen from 2 L to 3 L. She notes that she often has to stop when ambulating to catch her breath. Her shortness of breath is much worse with ambulation. She also notes some exertional chest pain. She notes that she has been sleeping with a couple of pillows. She notes that she has not was compliant with her Lasix and often has lower extremity edema although it is not bad today. She notes a nonproductive cough. She denies fevers. She has required BiPAP in the past but she is never been intubated for her COPD or CHF. - Related Data Allergies Allergy/AdvReac Type Severity Reaction Status Date / Time cephalexin [From Keflex] Allergy Hives Verified 08/06/20 21:53 diclofenac Allergy Rash Verified 08/06/20 21:53 oxycodone [From Percocet] Allergy Rash Verified 08/06/20 21:53 Home Meds: Home Meds Albuterol Sulfate 2.5 mg IH Q4H PRN 12/05/19 [History] Aspirin 81 mg PO DAILY 12/05/19 [History] Cholecalciferol (Vitamin D3) [Vitamin D3] 50 mcg PO DAILY 12/05/19 [History] Multivitamin [Multi-Vitamin Daily] 1 tab PO DAILY 12/05/19 [History] Vitamin E (Dl,Tocopheryl Acet) [Vitamin E] 1 tab PO DAILY 12/05/19 [History] lisinopriL [Lisinopril] 10 mg PO DAILY 12/05/19 [History] Albuterol [Ventolin HFA] 1 dose INH ASDIRECTED 08/06/20 [History] Fluconazole [Diflucan] 150 mg PO DAILY 08/06/20 [History] Fluticasone/Umeclidin/Vilanter [Trelegy Ellipta 100-62.5-25 MCG] 1 puff INH DAILY 08/06/20 [History] Furosemide [Lasix] 40 mg PO DAILY 08/06/20 [History] predniSONE [Prednisone] 20 mg PO DAILY 08/06/20 [History] Past Medical History HEENT 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: Other (See Below) Other HEENT History: sinus issues Cardiovascular 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: High Cholesterol, Hypertension Respiratory 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: Bronchitis, Recurrent, COPD, Other (See Below) (oxygen dependent) Gastrointestinal 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: None Genitourinary 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: None [employer] 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: None Musculoskeletal 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: Back Pain, Chronic Neurological 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: None. Denies: CVA, TIA Psychiatric 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: None Endocrine/Metabolic 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: Obesity/BMI 30+. Denies: Diabetes, Type II Hematologic 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: None Immunologic 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: None Oncologic (Cancer) 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: None Dermatologic 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: None - Infectious Disease History Infectious Disease 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: Chicken Pox - Past Surgical History Female Surgical 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: Tubal Ligation Musculoskeletal Surgical 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: Other (See Below) Social & Family History - Family History Family Medical History: No Pertinent Family History - Caffeine Use Caffeine Use: Reports: Coffee, Soda Caffeine Use Comment: seldom drinks energy drinks - Living Situation & Occupation Occupation: Employed ED ROS GENERAL - Review of Systems Review Of Systems: Comprehensive ROS is negative, except as noted in HPI. ED EXAM, GENERAL - Physical Exam Exam: See Below Exam Limited By: No Limitations General Appearance: Alert, WD/WN, No Apparent Distress Throat/Mouth: Normal Voice, No Airway Compromise Head: Atraumatic, Normocephalic Neck: Normal Inspection Respiratory/Chest: No Respiratory Distress, Decreased Breath Sounds, Other (diminished but equal b/l breath sounds) Cardiovascular: Normal Peripheral Pulses, Regular Rate, Rhythm, Other (mild symmetric b/l pitting edema) Extremities: Normal Inspection Neurological: Alert, Oriented Psychiatric: Normal Affect, Normal Mood Skin Exam: Warm, Dry, Intact, Normal Color Course - Vital Signs Last Recorded V/S: Last Vital Signs Temp 98.1 F 08/07/20 04:00 Pulse 86 08/07/20 04:00 Resp 20 08/07/20 04:00 BP 124/70 08/07/20 04:00 Pulse Ox 90 L 08/07/20 04:00 - Orders/Labs/Meds Orders: Active Orders 24 hr Category Date Time Status Cardiac Monitoring [RC] . DIRECTED Care 08/06/20 17:18 Active Pulse Oximetry [RC] ASDIRECTED Care 08/06/20 17:18 Active CULTURE BLOOD [BC] Stat Lab 08/06/20 19:24 Received CULTURE BLOOD [BC] Stat Lab 08/06/20 19:30 Results Azithromycin [Zithromax] 500 mg Med 08/06/20 19:15 Active Sodium Chloride 0.9% [Normal Saline (AdvBag)] 250 ml IV ONETIME Sodium Chloride 0.9% [Saline Flush] Med 08/06/20 17:17 Active 10 ml FLUSH ASDIRECTED PRN Sodium Chloride 0.9% [Saline Flush] Med 08/06/20 17:17 Active 2.5 ml FLUSH ASDIRECTED PRN Blood Culture x2 Reflex Set [OM.PC] Stat Oth 08/06/20 19:11 Ordered Saline Lock Insert [OM.PC] Stat Oth 08/06/20 17:17 Ordered Medication Orders Acetaminophen (Tylenol) 650 mg PO Q4H PRN PRN Reason: Pain (Mild 1-3)/fever Albuterol/Ipratropium (Duoneb 3.0-0.5 Mg/3 Ml) 3 ml NEB Q4HRRT PRN PRN Reason: Shortness Of Breath/wheezing Aspirin (Aspirin) 81 mg PO DAILY KOLE Azithromycin (Zithromax) 250 mg PO Q24H KOLE Cholecalciferol (Vitamin D3) 50 mcg PO DAILY KOLE Furosemide (Lasix) 40 mg PO DAILY KOLE Guaifenesin (Robitussin) 200 mg PO Q4H PRN PRN Reason: Cough Azithromycin 500 mg/ Sodium (Chloride) 250 mls @ 250 mls/hr IV ONETIME KOLE Last Admin: 08/06/20 19:29 Dose: 250 mls/hr Documented by: MCKENZIE Lisinopril (Prinivil) 10 mg PO DAILY KOLE Methylprednisolone Sodium Succinate (Solu-Medrol) 40 mg IVPUSH Q8H KOLE Multivitamins/Minerals/Vitamin C (Tab-A-Cheo) 1 tab PO DAILY KOLE Pantoprazole Sodium (Protonix) 40 mg PO DAILY KOLE Sodium Chloride (Saline Flush) 10 ml FLUSH ASDIRECTED PRN PRN Reason: Keep Vein Open Last Admin: 08/06/20 17:26 Dose: 10 ml Documented by: MCKENZIE Sodium Chloride (Saline Flush) 2.5 ml FLUSH ASDIRECTED PRN PRN Reason: Keep Vein Open Last Admin: 08/06/20 17:26 Dose: 2.5 ml Documented by: MCKENZIE Labs: Laboratory Tests 08/06/20 08/06/20 08/06/20 Range/Units 17:20 17:20 17:20 WBC 13.34 H (4.0-11.0) K/uL RBC 4.87 (4.30-5.90) M/uL Hgb 15.3 (12.0-16.0) g/dL Hct 49.5 H (36.0-46.0) % MCV 101.6 H (80.0-98.0) fL MCH 31.4 (27.0-32.0) pg MCHC 30.9 L (31.0-37.0) g/dL RDW Std Deviation 50.4 (28.0-62.0) fl RDW Coeff of Vera 14 (11.0-15.0) % Plt Count 269 (150-400) K/uL MPV 10.70 (7.40-12.00) fL Neut % (Auto) 76.8 (48.0-80.0) % Lymph % (Auto) 15.7 L (16.0-40.0) % [place] % (Auto) 7.0 (0.0-15.0) % Eos % (Auto) 0.4 (0.0-7.0) % Baso % (Auto) 0.1 (0.0-1.5) % Neut # (Auto) 10.2 H (1.4-5.7) K/uL Lymph # (Auto) 2.1 (0.6-2.4) K/uL [place] # (Auto) 0.9 H (0.0-0.8) K/uL Eos # (Auto) 0.1 (0.0-0.7) K/uL Baso # (Auto) 0.0 (0.0-0.1) K/uL Nucleated RBC % 0.0 /100WBC Nucleated RBCs # 0 K/uL D-Dimer, Quantitative (0.0-0.50) mg/L FEU ABG pH (7.35-7.45) ABG pCO2 (35-45) mmHG ABG pO2 (75-100) mmHG ABG HCO3 (22-26) mEq/L ABG Total CO2 ABG Base Excess (-2.0-2.0) Lactate 0.9 (0.20-2.00) mmol/L Sodium 140 (136-145) mmol/L Potassium 3.6 (3.5-5.1) mmol/L Chloride 94 L (98-107) mmol/L Carbon Dioxide 40.6 H (21.0-32.0) mmol/L BUN 14 (7.0-18.0) mg/dL Creatinine 0.7 (0.6-1.0) mg/dL Est Cr Clr Drug Dosing 87.01 mL/min Estimated GFR (MDRD) > 60.0 ml/min Glucose 92 (74-106) mg/dL Calcium 9.2 (8.5-10.1) mg/dL Magnesium 1.9 (1.8-2.4) mg/dL Total Bilirubin 0.3 (0.2-1.0) mg/dL AST 17 (15-37) IU/L ALT 44 (14-63) IU/L Alkaline Phosphatase 107 (46-116) U/L Troponin I < 0.050 (0.000-0.056) ng/mL C-Reactive Protein 0.50 (0.00-0.90) mg/dL B-Natriuretic Peptide (<100) PG/ML Total Protein 7.3 (6.4-8.2) g/dL Albumin 3.7 (3.4-5.0) g/dL Globulin 3.6 (2.6-4.0) g/dL Albumin/Globulin Ratio 1.0 (0.9-1.6) SARS-CoV-2 RNA (RUBIN) (NEGATIVE) 08/06/20 08/06/20 08/06/20 Range/Units 17:20 17:20 18:10 WBC (4.0-11.0) K/uL RBC (4.30-5.90) M/uL Hgb (12.0-16.0) g/dL Hct (36.0-46.0) % MCV (80.0-98.0) fL MCH (27.0-32.0) pg MCHC (31.0-37.0) g/dL RDW Std Deviation (28.0-62.0) fl RDW Coeff of Vera (11.0-15.0) % Plt Count (150-400) K/uL MPV (7.40-12.00) fL Neut % (Auto) (48.0-80.0) % Lymph % (Auto) (16.0-40.0) % [place] % (Auto) (0.0-15.0) % Eos % (Auto) (0.0-7.0) % Baso % (Auto) (0.0-1.5) % Neut # (Auto) (1.4-5.7) K/uL Lymph # (Auto) (0.6-2.4) K/uL [place] # (Auto) (0.0-0.8) K/uL Eos # (Auto) (0.0-0.7) K/uL Baso # (Auto) (0.0-0.1) K/uL Nucleated RBC % /100WBC Nucleated RBCs # K/uL D-Dimer, Quantitative 0.35 (0.0-0.50) mg/L FEU ABG pH (7.35-7.45) ABG pCO2 (35-45) mmHG ABG pO2 (75-100) mmHG ABG HCO3 (22-26) mEq/L ABG Total CO2 ABG Base Excess (-2.0-2.0) Lactate (0.20-2.00) mmol/L Sodium (136-145) mmol/L Potassium (3.5-5.1) mmol/L Chloride (98-107) mmol/L Carbon Dioxide (21.0-32.0) mmol/L BUN (7.0-18.0) mg/dL Creatinine (0.6-1.0) mg/dL Est Cr Clr Drug Dosing mL/min Estimated GFR (MDRD) ml/min Glucose (74-106) mg/dL Calcium (8.5-10.1) mg/dL Magnesium (1.8-2.4) mg/dL Total Bilirubin (0.2-1.0) mg/dL AST (15-37) IU/L ALT (14-63) IU/L Alkaline Phosphatase (46-116) U/L Troponin I (0.000-0.056) ng/mL C-Reactive Protein (0.00-0.90) mg/dL B-Natriuretic Peptide 14 (<100) PG/ML Total Protein (6.4-8.2) g/dL Albumin (3.4-5.0) g/dL Globulin (2.6-4.0) g/dL Albumin/Globulin Ratio (0.9-1.6) SARS-CoV-2 RNA (RUBIN) NEGATIVE (NEGATIVE) 08/06/20 08/06/20 Range/Units 18:43 19:30 WBC (4.0-11.0) K/uL RBC (4.30-5.90) M/uL Hgb (12.0-16.0) g/dL Hct (36.0-46.0) % MCV (80.0-98.0) fL MCH (27.0-32.0) pg MCHC (31.0-37.0) g/dL RDW Std Deviation (28.0-62.0) fl RDW Coeff of Vera (11.0-15.0) % Plt Count (150-400) K/uL MPV (7.40-12.00) fL Neut % (Auto) (48.0-80.0) % Lymph % (Auto) (16.0-40.0) % [place] % (Auto) (0.0-15.0) % Eos % (Auto) (0.0-7.0) % Baso % (Auto) (0.0-1.5) % Neut # (Auto) (1.4-5.7) K/uL Lymph # (Auto) (0.6-2.4) K/uL [place] # (Auto) (0.0-0.8) K/uL Eos # (Auto) (0.0-0.7) K/uL Baso # (Auto) (0.0-0.1) K/uL Nucleated RBC % /100WBC Nucleated RBCs # K/uL D-Dimer, Quantitative (0.0-0.50) mg/L FEU ABG pH 7.419 (7.35-7.45) ABG pCO2 73 H (35-45) mmHG ABG pO2 56 L (75-100) mmHG ABG HCO3 47 H (22-26) mEq/L ABG Total CO2 41.5 ABG Base Excess 18.1 H (-2.0-2.0) Lactate (0.20-2.00) mmol/L Sodium (136-145) mmol/L Potassium (3.5-5.1) mmol/L Chloride (98-107) mmol/L Carbon Dioxide (21.0-32.0) mmol/L BUN (7.0-18.0) mg/dL Creatinine (0.6-1.0) mg/dL Est Cr Clr Drug Dosing mL/min Estimated GFR (MDRD) ml/min Glucose (74-106) mg/dL Calcium (8.5-10.1) mg/dL Magnesium (1.8-2.4) mg/dL Total Bilirubin (0.2-1.0) mg/dL AST (15-37) IU/L ALT (14-63) IU/L Alkaline Phosphatase (46-116) U/L Troponin I < 0.050 (0.000-0.056) ng/mL C-Reactive Protein (0.00-0.90) mg/dL B-Natriuretic Peptide (<100) PG/ML Total Protein (6.4-8.2) g/dL Albumin (3.4-5.0) g/dL Globulin (2.6-4.0) g/dL Albumin/Globulin Ratio (0.9-1.6) SARS-CoV-2 RNA (RUBIN) (NEGATIVE) Meds: Medications Generic Name Dose Route Start Last Admin Trade Name Freq PRN Reason Stop Dose Admin Acetaminophen 650 mg 08/06/20 19:51 Tylenol PO Q4H PRN Pain (Mild 1-3)/fever Albuterol/Ipratropium 3 ml 08/06/20 19:51 Duoneb 3.0-0.5 Mg/3 Ml NEB Q4HRRT PRN Shortness Of Breath/wheezing Aspirin 81 mg 08/07/20 09:00 Aspirin PO DAILY KOLE Azithromycin 250 mg 08/07/20 09:00 Zithromax PO Q24H [facility] Cholecalciferol 50 mcg 08/07/20 09:00 Vitamin D3 PO DAILY KOLE Furosemide 40 mg 08/07/20 09:00 Lasix PO DAILY KOLE Guaifenesin 200 mg 08/06/20 20:11 Robitussin PO Q4H PRN Cough Azithromycin 500 mg/ Sodium 250 mls @ 250 mls/hr 08/06/20 19:15 08/06/20 19:29 Chloride IV 250 mls/hr ONETIME KOLE Administration Lisinopril 10 mg 08/07/20 09:00 Prinivil PO DAILY KOLE Methylprednisolone Sodium Succinate 40 mg 08/07/20 09:00 Solu-Medrol IVPUSH Q8H KOLE Multivitamins/Minerals/Vitamin C 1 tab 08/07/20 09:00 Tab-A-Cheo PO DAILY KOLE Pantoprazole Sodium 40 mg 08/07/20 09:00 Protonix PO DAILY KOLE Sodium Chloride 10 ml 08/06/20 17:17 08/06/20 17:26 Saline Flush FLUSH 10 ml ASDIRECTED PRN Administration Keep Vein Open Sodium Chloride 2.5 ml 08/06/20 17:17 08/06/20 17:26 Saline Flush FLUSH 2.5 ml ASDIRECTED PRN Administration Keep Vein Open Discontinued Medications Generic Name Dose Route Start Last Admin Trade Name Freq PRN Reason Stop Dose Admin Albuterol/Ipratropium 3 ml 08/06/20 17:17 08/06/20 17:27 Duoneb 3.0-0.5 Mg/3 Ml NEB 08/06/20 17:18 3 ml ONETIME ONE Administration Magnesium Sulfate 2 gm/ Premix 50 mls @ 50 mls/hr 08/06/20 17:20 08/06/20 17:25 IV 08/06/20 18:19 50 mls/hr ONETIME ONE Administration Methylprednisolone Sodium Succinate 125 mg 08/06/20 17:17 08/06/20 17:25 Solu-Medrol IVPUSH 08/06/20 17:18 125 mg ONETIME ONE Administration - Re-Assessments/Exams Free Text/Narrative Re-Assessment/Exam: 08/06/20 17:23 Patient's oxygen saturation improved to 92% with nasal cannula oxygen. We will start broad work-up including labs, EKG, chest x-ray. Will give DuoNeb for COPD exacerbation. Will give Solu-Medrol and magnesium as well. Will defer BiPAP as patient is not in respiratory distress despite low O2 sats. Will follow up ABG to evaluate for hypercapnia and possible need for BiPAP. 08/06/20 18:11 Patient's O2 sats remained in any high 80s low 90s on 5 L nasal cannula. Patient notes that her baseline O2 sat is around 90% 08/06/20 19:00 patient care transitioned to FELICITA Manning pending ABG, COVID test, and admission Departure - Departure Time of Disposition: 20:00 Disposition: Admitted As Inpatient 68 Condition: Fair Clinical Impression: COPD exacerbation - Discharge Information - My Orders Last 24 Hours: My Active Orders 08/06/20 17:17 Sodium Chloride 0.9% [Saline Flush] 10 ml FLUSH ASDIRECTED PRN Sodium Chloride 0.9% [Saline Flush] 2.5 ml FLUSH ASDIRECTED PRN Saline Lock Insert [OM.PC] Stat 08/06/20 17:18 Cardiac Monitoring [RC] . DIRECTED Pulse Oximetry [RC] ASDIRECTED - Assessment/Plan Last 24 Hours: My Active Orders 08/06/20 17:17 Sodium Chloride 0.9% [Saline Flush] 10 ml FLUSH ASDIRECTED PRN Sodium Chloride 0.9% [Saline Flush] 2.5 ml FLUSH ASDIRECTED PRN Saline Lock Insert [OM.PC] Stat 08/06/20 17:18 Cardiac Monitoring [RC] . DIRECTED Pulse Oximetry [RC] ASDIRECTED
[2020-08-06] MEDS ORDERED: Albuterol/Ipratropium 3.0-0.5 MG/3 ML Neb Soln NEB ONE (17:17)
[2020-08-06] MEDS ORDERED: methylPREDNISolone Sodium Succinate 125 MG/2 ML SDV IVPUSH ONE (17:17)
[2020-08-06] MEDS ORDERED: Sodium Chloride 0.9% 10 ML Syringe FLUSH PRN (17:17)
[2020-08-06] MEDS ORDERED: Sodium Chloride 0.9% 2.5 ML Syringe FLUSH PRN (17:17)
[2020-08-06] MEDS ORDERED: Magnesium Sulfate/Water 2 GM in Premix Bag 1 BAG IV ONE (17:20)
--- NOTE | 2020-08-06 17:56 | CR ---
INDICATION: COPD. TECHNIQUE: Chest 1 view. COMPARISON: Chest radiograph 01/12/2020. FINDINGS: Linear atelectasis or scarring in the right lower lung. No focal consolidation, pleural effusion, or pneumothorax. Normal heart size and pulmonary vascularity. Old right rib fracture. IMPRESSION: No acute cardiopulmonary findings. Dictated by Dasia Vicente MD @ Aug 06 2020 5:52PM Signed by Dr. Dasia Vicente @ Aug 06 2020 5:55PM
[2020-08-06 18:07] LABS: BLOOD UREA NITROGEN,BUN 14 mg/dL (7.0-18.0); CARBON DIOXIDE,CO2 40.6 mmol/L (21.0-32.0); CHLORIDE,CL 94 mmol/L (98-107); GLUCOSE RANDOM 92 mg/dL (74-106); POTASSIUM,K 3.6 mmol/L (3.5-5.1); SODIUM,NA 140 mmol/L (136-145)
[2020-08-06] MEDS ORDERED: Azithromycin 500 MG in Sodium Chloride 0.9% 250 ML IV SCH (19:15)
[2020-08-06] MEDS ORDERED: Albuterol/Ipratropium 3.0-0.5 MG/3 ML Neb Soln NEB PRN (19:51)
[2020-08-06] MEDS ORDERED: Acetaminophen 325 MG Tab PO PRN (19:51)
[2020-08-06] MEDS ORDERED: guaiFENesin 100 MG/5 ML Soln 10 ML UD Cup PO PRN (20:11)
--- NOTE | 2020-08-06 21:12 | PCM.SN.2 ---
- Free Text/Narrative Note: I received sign out on patient from Dr. Meliton Dow at 19:00. I personally have been in to see and evaluate patient secondarily to Dr. Meliton Dow and agree with the above history and physical exam. On my exam, patient is on 5L NC and O2 88% and breathing comfortably in no respiratory distress. Otherwise vitally sta ble. She states her oxygen is baseline 88-92% on 2-3L chronically at home. She has been more short of breath x 1 week with associated exertional chest pain. No current chest pain. At time of sign out, pending ABG and COVID 19 viral testing. I additionally ordered a ddimer and gave patient a dose of Azithromycin 500mg IV for presumed COPD exacerbation. ABG shows compensated metabolic alkalosis. COVID19 negative and ddimer WNL. I did call and speak to the hospitalist medical communication specialist, Dr. Palafox, and thoroughly discussed patients case. Will admit to observation telemetry to Dr. Palafox. Diagnostics: Ddimer Therapeutics: Azithromycin Impression: COPD exacerbation Hypoxia Chest pain, r/o ACS Plan: Admit to observation telemetry to Dr. Palafox Definitive disposition and diagnosis as appropriate pending reevaluation and review of above.
--- NOTE | 2020-08-06 22:18 | PCM.HP.2 ---
H&P History of Present Illness - General Date of Service: 08/06/20 Admit Problem/Dx: Admission Diagnosis/Problem Admission Diagnosis/Problem COPD, Moderate chronic obstructive pulmonary disease - History of Present Illness Initial Comments - Free Text/Narative: 55-year-old female past medical history COPD on 2-3 L home O2, hypertension, congestive heart failure presents with worsening shortness of breath for last1 week. Patient was seen by her PCP as an outpatient today where she was found to be hypoxic saturating in 70s in rest and in 40s upon ambulation. Patient was referred to ER for hypoxemia. Patient has been on steroids and antibiotics x2- weeks with no significant improvement of her symptoms. Patient states that since her discharge from [facility] months back she was doing pretty well and was only using 2Lts of oxygen but last few days she had to stop and catch her breath and has to use higher amount of oxygen. She also notes some exertional chest pain which had resolved during my encounter. SHe also endorsed some non productive cough. She denies fevers. She has required BiPAP in the past but she is never been intubated for her COPD or CHF. Patient saw a announcer but never got sleep study done as of now. Patients Labs were grossly unremarkable except for slight leucocytosis. CXR was unremarkable. Patient was admitted for further management. - Related Data Allergies/Adverse Reactions: Allergies Allergy/AdvReac Type Severity Reaction Status Date / Time cephalexin [From Keflex] Allergy Hives Verified 08/06/20 21:53 diclofenac Allergy Rash Verified 08/06/20 21:53 oxycodone [From Percocet] Allergy Rash Verified 08/06/20 21:53 Home Medications: Home Meds Albuterol Sulfate 2.5 mg IH Q4H PRN 12/05/19 [History] Aspirin 81 mg PO DAILY 12/05/19 [History] Cholecalciferol (Vitamin D3) [Vitamin D3] 50 mcg PO DAILY 12/05/19 [History] Multivitamin [Multi-Vitamin Daily] 1 tab PO DAILY 12/05/19 [History] Vitamin E (Dl,Tocopheryl Acet) [Vitamin E] 1 tab PO DAILY 12/05/19 [History] lisinopriL [Lisinopril] 10 mg PO DAILY 12/05/19 [History] Albuterol [Ventolin HFA] 1 dose INH ASDIRECTED 08/06/20 [History] Fluconazole [Diflucan] 150 mg PO DAILY 08/06/20 [History] Fluticasone/Umeclidin/Vilanter [Trelegy Ellipta 100-62.5-25 MCG] 1 puff INH DAILY 08/06/20 [History] Furosemide [Lasix] 40 mg PO DAILY 08/06/20 [History] predniSONE [Prednisone] 20 mg PO DAILY 08/06/20 [History] Past Medical History HEENT 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: Other (See Below) Other HEENT History: sinus issues Cardiovascular 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: High Cholesterol, Hypertension Respiratory 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: Bronchitis, Recurrent, COPD, Other (See Below) Gastrointestinal 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: None Genitourinary 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: None [employer] 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: Musculoskeletal 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: Back Pain, Chronic Neurological 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: None Psychiatric 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: None Endocrine/Metabolic 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: Obesity/BMI 30+ Hematologic 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: None Immunologic 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: None Oncologic (Cancer) 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: None Dermatologic 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: None - Infectious Disease History Infectious Disease 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: Chicken Pox - Past Surgical History HEENT Surgical 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: Tonsillectomy GI Surgical 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: Cholecystectomy Female Surgical 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: Tubal Ligation Musculoskeletal Surgical 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: Other (See Below) Other Musculoskeletal Surgeries/Procedures:: Left arm surgery Social & Family History - Family History Family Medical History: No Pertinent Family History - Tobacco Use Tobacco Use Status *Q: Former Tobacco User Used Tobacco, but Quit: Yes Month/Year Tobacco Last Used: 2020 - Caffeine Use Caffeine Use: Reports: Coffee Caffeine Use Comment: seldom drinks energy drinks - Recreational Drug Use Recreational Drug Use: No - Living Situation & Occupation Occupation: Employed H&P Review of Systems - Review of Systems: Review Of Systems: See Below General: Reports: Weakness. Denies: Fever, Chills, Malaise HEENT: Denies: Dysphasia, Ear Pain, Headaches Pulmonary: Reports: Shortness of Breath, Wheezing, Cough. Denies: Pleuritic Chest Pain Cardiovascular: Reports: Dyspnea on Exertion, Orthopnea. Denies: Palpitations, Lightheadedness, Syncope Gastrointestinal: Denies: Anorexia, Black Stool, Difficulty Swallowing, Distension Genitourinary: Denies: Frequency, Burning, Pain Musculoskeletal: Denies: Shoulder Pain, Arm Pain Skin: Denies: Jaundice, Mottled Psychiatric: Denies: Confusion, Depression, Hallucinations (Auditory) Exam - Exam Exam: See Below - Vital Signs Vital Signs: Last Vital Signs Temp 36.3 C 08/06/20 17:36 Pulse 85 08/06/20 21:17 Resp 20 08/06/20 21:17 BP 131/72 08/06/20 21:17 Pulse Ox 86 L 08/06/20 21:17 Weight: 113.398 kg - Exam Quality Assessment: Supplemental Oxygen General: Alert, Oriented, Cooperative HEENT: Conjunctiva Clear Neck: Supple, Trachea Midline. No: Thyromegaly Lungs: Decreased Breath Sounds, Wheezing. No: Clear to Auscultation Cardiovascular: Regular Rate, Regular Rhythm GI/Abdominal Exam: Normal Bowel Sounds, Soft, Non-Tender - Patient Data Lab Results Last 24 hrs: Laboratory Results - last 24 hr 08/06/20 08/06/20 08/06/20 Range/Units 17:20 17:20 17:20 WBC 13.34 H (4.0-11.0) K/uL RBC 4.87 (4.30-5.90) M/uL Hgb 15.3 (12.0-16.0) g/dL Hct 49.5 H (36.0-46.0) % MCV 101.6 H (80.0-98.0) fL MCH 31.4 (27.0-32.0) pg MCHC 30.9 L (31.0-37.0) g/dL RDW Std Deviation 50.4 (28.0-62.0) fl RDW Coeff of Vera 14 (11.0-15.0) % Plt Count 269 (150-400) K/uL MPV 10.70 (7.40-12.00) fL Neut % (Auto) 76.8 (48.0-80.0) % Lymph % (Auto) 15.7 L (16.0-40.0) % [place] % (Auto) 7.0 (0.0-15.0) % Eos % (Auto) 0.4 (0.0-7.0) % Baso % (Auto) 0.1 (0.0-1.5) % Neut # (Auto) 10.2 H (1.4-5.7) K/uL Lymph # (Auto) 2.1 (0.6-2.4) K/uL [place] # (Auto) 0.9 H (0.0-0.8) K/uL Eos # (Auto) 0.1 (0.0-0.7) K/uL Baso # (Auto) 0.0 (0.0-0.1) K/uL Nucleated RBC % 0.0 /100WBC Nucleated RBCs # 0 K/uL D-Dimer, Quantitative (0.0-0.50) mg/L FEU ABG pH (7.35-7.45) ABG pCO2 (35-45) mmHG ABG pO2 (75-100) mmHG ABG HCO3 (22-26) mEq/L ABG Total CO2 ABG Base Excess (-2.0-2.0) Lactate 0.9 (0.20-2.00) mmol/L Sodium 140 (136-145) mmol/L Potassium 3.6 (3.5-5.1) mmol/L Chloride 94 L (98-107) mmol/L Carbon Dioxide 40.6 H (21.0-32.0) mmol/L BUN 14 (7.0-18.0) mg/dL Creatinine 0.7 (0.6-1.0) mg/dL Est Cr Clr Drug Dosing 87.01 mL/min Estimated GFR (MDRD) > 60.0 ml/min Glucose 92 (74-106) mg/dL Calcium 9.2 (8.5-10.1) mg/dL Magnesium 1.9 (1.8-2.4) mg/dL Total Bilirubin 0.3 (0.2-1.0) mg/dL AST 17 (15-37) IU/L ALT 44 (14-63) IU/L Alkaline Phosphatase 107 (46-116) U/L Troponin I < 0.050 (0.000-0.056) ng/mL C-Reactive Protein 0.50 (0.00-0.90) mg/dL B-Natriuretic Peptide (<100) PG/ML Total Protein 7.3 (6.4-8.2) g/dL Albumin 3.7 (3.4-5.0) g/dL Globulin 3.6 (2.6-4.0) g/dL Albumin/Globulin Ratio 1.0 (0.9-1.6) SARS-CoV-2 RNA (RUBIN) (NEGATIVE) 08/06/20 08/06/20 08/06/20 Range/Units 17:20 17:20 18:10 WBC (4.0-11.0) K/uL RBC (4.30-5.90) M/uL Hgb (12.0-16.0) g/dL Hct (36.0-46.0) % MCV (80.0-98.0) fL MCH (27.0-32.0) pg MCHC (31.0-37.0) g/dL RDW Std Deviation (28.0-62.0) fl RDW Coeff of Vera (11.0-15.0) % Plt Count (150-400) K/uL MPV (7.40-12.00) fL Neut % (Auto) (48.0-80.0) % Lymph % (Auto) (16.0-40.0) % [place] % (Auto) (0.0-15.0) % Eos % (Auto) (0.0-7.0) % Baso % (Auto) (0.0-1.5) % Neut # (Auto) (1.4-5.7) K/uL Lymph # (Auto) (0.6-2.4) K/uL [place] # (Auto) (0.0-0.8) K/uL Eos # (Auto) (0.0-0.7) K/uL Baso # (Auto) (0.0-0.1) K/uL Nucleated RBC % /100WBC Nucleated RBCs # K/uL D-Dimer, Quantitative 0.35 (0.0-0.50) mg/L FEU ABG pH (7.35-7.45) ABG pCO2 (35-45) mmHG ABG pO2 (75-100) mmHG ABG HCO3 (22-26) mEq/L ABG Total CO2 ABG Base Excess (-2.0-2.0) Lactate (0.20-2.00) mmol/L Sodium (136-145) mmol/L Potassium (3.5-5.1) mmol/L Chloride (98-107) mmol/L Carbon Dioxide (21.0-32.0) mmol/L BUN (7.0-18.0) mg/dL Creatinine (0.6-1.0) mg/dL Est Cr Clr Drug Dosing mL/min Estimated GFR (MDRD) ml/min Glucose (74-106) mg/dL Calcium (8.5-10.1) mg/dL Magnesium (1.8-2.4) mg/dL Total Bilirubin (0.2-1.0) mg/dL AST (15-37) IU/L ALT (14-63) IU/L Alkaline Phosphatase (46-116) U/L Troponin I (0.000-0.056) ng/mL C-Reactive Protein (0.00-0.90) mg/dL B-Natriuretic Peptide 14 (<100) PG/ML Total Protein (6.4-8.2) g/dL Albumin (3.4-5.0) g/dL Globulin (2.6-4.0) g/dL Albumin/Globulin Ratio (0.9-1.6) SARS-CoV-2 RNA (RUBIN) NEGATIVE (NEGATIVE) 08/06/20 08/06/20 Range/Units 18:43 19:30 WBC (4.0-11.0) K/uL RBC (4.30-5.90) M/uL Hgb (12.0-16.0) g/dL Hct (36.0-46.0) % MCV (80.0-98.0) fL MCH (27.0-32.0) pg MCHC (31.0-37.0) g/dL RDW Std Deviation (28.0-62.0) fl RDW Coeff of Vera (11.0-15.0) % Plt Count (150-400) K/uL MPV (7.40-12.00) fL Neut % (Auto) (48.0-80.0) % Lymph % (Auto) (16.0-40.0) % [place] % (Auto) (0.0-15.0) % Eos % (Auto) (0.0-7.0) % Baso % (Auto) (0.0-1.5) % Neut # (Auto) (1.4-5.7) K/uL Lymph # (Auto) (0.6-2.4) K/uL [place] # (Auto) (0.0-0.8) K/uL Eos # (Auto) (0.0-0.7) K/uL Baso # (Auto) (0.0-0.1) K/uL Nucleated RBC % /100WBC Nucleated RBCs # K/uL D-Dimer, Quantitative (0.0-0.50) mg/L FEU ABG pH 7.419 (7.35-7.45) ABG pCO2 73 H (35-45) mmHG ABG pO2 56 L (75-100) mmHG ABG HCO3 47 H (22-26) mEq/L ABG Total CO2 41.5 ABG Base Excess 18.1 H (-2.0-2.0) Lactate (0.20-2.00) mmol/L Sodium (136-145) mmol/L Potassium (3.5-5.1) mmol/L Chloride (98-107) mmol/L Carbon Dioxide (21.0-32.0) mmol/L BUN (7.0-18.0) mg/dL Creatinine (0.6-1.0) mg/dL Est Cr Clr Drug Dosing mL/min Estimated GFR (MDRD) ml/min Glucose (74-106) mg/dL Calcium (8.5-10.1) mg/dL Magnesium (1.8-2.4) mg/dL Total Bilirubin (0.2-1.0) mg/dL AST (15-37) IU/L ALT (14-63) IU/L Alkaline Phosphatase (46-116) U/L Troponin I < 0.050 (0.000-0.056) ng/mL C-Reactive Protein (0.00-0.90) mg/dL B-Natriuretic Peptide (<100) PG/ML Total Protein (6.4-8.2) g/dL Albumin (3.4-5.0) g/dL Globulin (2.6-4.0) g/dL Albumin/Globulin Ratio (0.9-1.6) SARS-CoV-2 RNA (RUBIN) (NEGATIVE) Result Diagrams: 08/06/20 17:20 08/06/20 17:20 Twan Results Last 24 hrs: Microbiology 08/06/20 19:30 Anaerobic Blood Culture - Final Blood - Venous - Lab Draw Sepsis Event Note - Evaluation Sepsis Screening Result: No Definite Risk - Focused Exam Vital Signs: Vital Signs Temp Pulse Resp BP Pulse Ox 08/06/20 21:17 85 20 131/72 86 L 08/06/20 20:33 94 16 129/53 L 88 L 08/06/20 19:49 90 18 140/77 85 L 08/06/20 19:02 85 16 141/81 H 89 L 08/06/20 18:02 82 17 125/74 90 L 08/06/20 17:47 88 18 119/73 88 L 08/06/20 17:36 36.3 C 88 27 H 147/63 H 80 L 08/06/20 17:33 92 17 115/70 89 L - Problem List (1) Acute on chronic respiratory failure with hypoxia and hypercapnia SNOMED Code(s): 31375256958961 ICD Code: J96.21 - ACUTE AND CHRONIC RESPIRATORY FAILURE WITH HYPOXIA; J96.22 - ACUTE AND CHRONIC RESPIRATORY FAILURE WITH HYPERCAPNIA Status: Acute Current Visit: No (2) COPD exacerbation SNOMED Code(s): 930708940 ICD Code: J44.1 - CHRONIC OBSTRUCTIVE PULMONARY DISEASE W (ACUTE) EXACERBATION Status: Acute Current Visit: No (3) HTN (hypertension) SNOMED Code(s): 75751535 ICD Code: I10 - ESSENTIAL (PRIMARY) HYPERTENSION Status: Chronic Current Visit: No (4) Obesity SNOMED Code(s): 770777082, 079167748 ICD Code: E66.9 - OBESITY, UNSPECIFIED Status: Chronic Current Visit: No (5) Tobacco use SNOMED Code(s): 507711348 ICD Code: Z72.0 - TOBACCO USE Status: Chronic Current Visit: No Problem List Initiated/Reviewed/Updated: Yes Orders Last 24hrs: Active Orders 24 hr Category Date Time Status Admission Status [Patient Status] [ADT] Stat ADT 08/06/20 19:46 Active Ambulate [RC] ASDIRECTED Care 08/06/20 19:51 Active Antiembolic Devices [RC] PER UNIT ROUTINE Care 08/06/20 19:52 Active Cardiac Monitoring [RC] . DIRECTED Care 08/06/20 17:18 Active Oxygen Therapy [RC] PRN Care 08/06/20 19:51 Active Pulse Oximetry [RC] ASDIRECTED Care 08/06/20 17:18 Active RT Aerosol Therapy [RC] ASDIRECTED Care 08/06/20 19:53 Active VTE/DVT Education [RC] PER UNIT ROUTINE Care 08/06/20 19:51 Active Vital Signs [RC] Q4H Care 08/06/20 19:51 Active Heart Healthy Diet [DIET] Diet 08/06/20 Dinner Active BMP [BASIC METABOLIC PANEL,BMP] [CHEM] AM Lab 08/07/20 05:11 Ordered CBC WITH AUTO DIFF [HEME] AM Lab 08/07/20 05:11 Ordered CULTURE BLOOD [BC] Stat Lab 08/06/20 19:24 Received CULTURE BLOOD [BC] Stat Lab 08/06/20 19:30 Results MAGNESIUM [CHEM] AM Lab 08/07/20 05:11 Ordered PHOSPHORUS [CHEM] AM Lab 08/07/20 05:11 Ordered Acetaminophen [TylenoL] Med 08/06/20 19:51 Active 650 mg PO Q4H PRN Albuterol/Ipratropium [DuoNeb 3.0-0.5 MG/3 ML] Med 08/06/20 19:51 Active 3 ml NEB Q4HRRT PRN Azithromycin [Zithromax] Med 08/07/20 09:00 Active 250 mg PO Q24H Azithromycin [Zithromax] 500 mg Med 08/06/20 19:15 Active Sodium Chloride 0.9% [Normal Saline (AdvBag)] 250 ml IV ONETIME Sodium Chloride 0.9% [Saline Flush] Med 08/06/20 17:17 Active 10 ml FLUSH ASDIRECTED PRN Sodium Chloride 0.9% [Saline Flush] Med 08/06/20 17:17 Active 2.5 ml FLUSH ASDIRECTED PRN guaiFENesin [Robitussin] Med 08/06/20 20:11 Active 200 mg PO Q4H PRN methylPREDNISolone Sod Succ [Solu-MEDROL] Med 08/07/20 09:00 Active 40 mg IVPUSH Q8H Blood Culture x2 Reflex Set [OM.PC] Stat Oth 08/06/20 19:11 Ordered Saline Lock Insert [OM.PC] Stat Oth 08/06/20 17:17 Ordered Sequential Compression Device [OM.PC] Per Unit Routine Oth 08/06/20 19:52 Ordered Medication Orders Acetaminophen (Tylenol) 650 mg PO Q4H PRN PRN Reason: Pain (Mild 1-3)/fever Albuterol/Ipratropium (Duoneb 3.0-0.5 Mg/3 Ml) 3 ml NEB Q4HRRT PRN PRN Reason: Shortness Of Breath/wheezing Azithromycin (Zithromax) 250 mg PO Q24H KOLE Guaifenesin (Robitussin) 200 mg PO Q4H PRN PRN Reason: Cough Azithromycin 500 mg/ Sodium (Chloride) 250 mls @ 250 mls/hr IV ONETIME KOLE Last Admin: 08/06/20 19:29 Dose: 250 mls/hr Documented by: MCKENZIE Methylprednisolone Sodium Succinate (Solu-Medrol) 40 mg IVPUSH Q8H [facility] Sodium Chloride (Saline Flush) 10 ml FLUSH ASDIRECTED PRN PRN Reason: Keep Vein Open Last Admin: 08/06/20 17:26 Dose: 10 ml Documented by: MCKENZIE Sodium Chloride (Saline Flush) 2.5 ml FLUSH ASDIRECTED PRN PRN Reason: Keep Vein Open Last Admin: 08/06/20 17:26 Dose: 2.5 ml Documented by: MCKENZIE Assessment/Plan Comment:: 55 y/o F Admitted for Acute over chronic hypoxic respiratory failure due to COPD exacerbation ABG, CXR noted, COVID negative cont oxygenation via NC, cont IV steroids, cont Azithromycin DuoNebs as needed Tylenol for pain Guaifenesin for cough Monitor and replete elctrolytes
[2020-08-07 05:53] LABS: BLOOD UREA NITROGEN,BUN 13 mg/dL (7.0-18.0); CARBON DIOXIDE,CO2 40.5 mmol/L (21.0-32.0); CHLORIDE,CL 99 mmol/L (98-107); GLUCOSE RANDOM 131 mg/dL (74-106); POTASSIUM,K 5.2 mmol/L (3.5-5.1); SODIUM,NA 141 mmol/L (136-145)
[2020-08-07] MEDS: Albuterol/Ipratropium 3.0-0.5 MG/3 ML Neb Soln NEB SCH ×5 (08:13→21:13)
--- NOTE | 2020-08-07 08:15 | PCM.PN ---
<Costa Lawrence - Last Filed: 08/07/20 10:16> - General Info Date of Service: 08/07/20 Subjective Update: Patient reports sleeping well overnight. Tolerating oral diet. Feels breathing is same as yesterday. No fevers, chills, nausea, vomiting or chest pain. - Patient Data Vitals - Most Recent: Last Vital Signs Temp 36.7 C 08/07/20 04:00 Pulse 86 08/07/20 04:00 Resp 20 08/07/20 04:00 BP 124/70 08/07/20 04:00 Pulse Ox 90 L 08/07/20 04:00 Weight - Most Recent: 113.398 kg I&O - Last 24 Hours: Intake & Output 08/06/20 08/07/20 08/07/20 22:59 06:59 14:59 Intake Total 320 Output Total 420 Balance -100 Lab Results Last 24 Hours: Laboratory Results - last 24 hr 08/06/20 08/06/20 08/06/20 Range/Units 17:20 17:20 17:20 WBC 13.34 H (4.0-11.0) K/uL RBC 4.87 (4.30-5.90) M/uL Hgb 15.3 (12.0-16.0) g/dL Hct 49.5 H (36.0-46.0) % MCV 101.6 H (80.0-98.0) fL MCH 31.4 (27.0-32.0) pg MCHC 30.9 L (31.0-37.0) g/dL RDW Std Deviation 50.4 (28.0-62.0) fl RDW Coeff of Vera 14 (11.0-15.0) % Plt Count 269 (150-400) K/uL MPV 10.70 (7.40-12.00) fL Neut % (Auto) 76.8 (48.0-80.0) % Lymph % (Auto) 15.7 L (16.0-40.0) % [place] % (Auto) 7.0 (0.0-15.0) % Eos % (Auto) 0.4 (0.0-7.0) % Baso % (Auto) 0.1 (0.0-1.5) % Neut # (Auto) 10.2 H (1.4-5.7) K/uL Lymph # (Auto) 2.1 (0.6-2.4) K/uL [place] # (Auto) 0.9 H (0.0-0.8) K/uL Eos # (Auto) 0.1 (0.0-0.7) K/uL Baso # (Auto) 0.0 (0.0-0.1) K/uL Nucleated RBC % 0.0 /100WBC Nucleated RBCs # 0 K/uL D-Dimer, Quantitative (0.0-0.50) mg/L FEU ABG pH (7.35-7.45) ABG pCO2 (35-45) mmHG ABG pO2 (75-100) mmHG ABG HCO3 (22-26) mEq/L ABG Total CO2 ABG Base Excess (-2.0-2.0) Lactate 0.9 (0.20-2.00) mmol/L Sodium 140 (136-145) mmol/L Potassium 3.6 (3.5-5.1) mmol/L Chloride 94 L (98-107) mmol/L Carbon Dioxide 40.6 H (21.0-32.0) mmol/L BUN 14 (7.0-18.0) mg/dL Creatinine 0.7 (0.6-1.0) mg/dL Est Cr Clr Drug Dosing 87.01 mL/min Estimated GFR (MDRD) > 60.0 ml/min Glucose 92 (74-106) mg/dL Calcium 9.2 (8.5-10.1) mg/dL Phosphorus (2.6-4.7) mg/dL Magnesium 1.9 (1.8-2.4) mg/dL Total Bilirubin 0.3 (0.2-1.0) mg/dL AST 17 (15-37) IU/L ALT 44 (14-63) IU/L Alkaline Phosphatase 107 (46-116) U/L Troponin I < 0.050 (0.000-0.056) ng/mL C-Reactive Protein 0.50 (0.00-0.90) mg/dL B-Natriuretic Peptide (<100) PG/ML Total Protein 7.3 (6.4-8.2) g/dL Albumin 3.7 (3.4-5.0) g/dL Globulin 3.6 (2.6-4.0) g/dL Albumin/Globulin Ratio 1.0 (0.9-1.6) SARS-CoV-2 RNA (RUBIN) (NEGATIVE) 08/06/20 08/06/20 08/06/20 Range/Units 17:20 17:20 18:10 WBC (4.0-11.0) K/uL RBC (4.30-5.90) M/uL Hgb (12.0-16.0) g/dL Hct (36.0-46.0) % MCV (80.0-98.0) fL MCH (27.0-32.0) pg MCHC (31.0-37.0) g/dL RDW Std Deviation (28.0-62.0) fl RDW Coeff of Vera (11.0-15.0) % Plt Count (150-400) K/uL MPV (7.40-12.00) fL Neut % (Auto) (48.0-80.0) % Lymph % (Auto) (16.0-40.0) % [place] % (Auto) (0.0-15.0) % Eos % (Auto) (0.0-7.0) % Baso % (Auto) (0.0-1.5) % Neut # (Auto) (1.4-5.7) K/uL Lymph # (Auto) (0.6-2.4) K/uL [place] # (Auto) (0.0-0.8) K/uL Eos # (Auto) (0.0-0.7) K/uL Baso # (Auto) (0.0-0.1) K/uL Nucleated RBC % /100WBC Nucleated RBCs # K/uL D-Dimer, Quantitative 0.35 (0.0-0.50) mg/L FEU ABG pH (7.35-7.45) ABG pCO2 (35-45) mmHG ABG pO2 (75-100) mmHG ABG HCO3 (22-26) mEq/L ABG Total CO2 ABG Base Excess (-2.0-2.0) Lactate (0.20-2.00) mmol/L Sodium (136-145) mmol/L Potassium (3.5-5.1) mmol/L Chloride (98-107) mmol/L Carbon Dioxide (21.0-32.0) mmol/L BUN (7.0-18.0) mg/dL Creatinine (0.6-1.0) mg/dL Est Cr Clr Drug Dosing mL/min Estimated GFR (MDRD) ml/min Glucose (74-106) mg/dL Calcium (8.5-10.1) mg/dL Phosphorus (2.6-4.7) mg/dL Magnesium (1.8-2.4) mg/dL Total Bilirubin (0.2-1.0) mg/dL AST (15-37) IU/L ALT (14-63) IU/L Alkaline Phosphatase (46-116) U/L Troponin I (0.000-0.056) ng/mL C-Reactive Protein (0.00-0.90) mg/dL B-Natriuretic Peptide 14 (<100) PG/ML Total Protein (6.4-8.2) g/dL Albumin (3.4-5.0) g/dL Globulin (2.6-4.0) g/dL Albumin/Globulin Ratio (0.9-1.6) SARS-CoV-2 RNA (RUBIN) NEGATIVE (NEGATIVE) 08/06/20 08/06/20 08/07/20 Range/Units 18:43 19:30 05:26 WBC 8.26 (4.0-11.0) K/uL RBC 4.64 (4.30-5.90) M/uL Hgb 14.9 (12.0-16.0) g/dL Hct 47.1 H (36.0-46.0) % MCV 101.5 H (80.0-98.0) fL MCH 32.1 H (27.0-32.0) pg MCHC 31.6 (31.0-37.0) g/dL RDW Std Deviation 51.2 (28.0-62.0) fl RDW Coeff of Vera 14 (11.0-15.0) % Plt Count 238 (150-400) K/uL MPV 10.30 (7.40-12.00) fL Neut % (Auto) 88.7 H (48.0-80.0) % Lymph % (Auto) 8.2 L (16.0-40.0) % [place] % (Auto) 3.1 (0.0-15.0) % Eos % (Auto) 0.0 (0.0-7.0) % Baso % (Auto) 0.0 (0.0-1.5) % Neut # (Auto) 7.3 H (1.4-5.7) K/uL Lymph # (Auto) 0.7 (0.6-2.4) K/uL [place] # (Auto) 0.3 (0.0-0.8) K/uL Eos # (Auto) 0.0 (0.0-0.7) K/uL Baso # (Auto) 0.0 (0.0-0.1) K/uL Nucleated RBC % 0.0 /100WBC Nucleated RBCs # 0 K/uL D-Dimer, Quantitative (0.0-0.50) mg/L FEU ABG pH 7.419 (7.35-7.45) ABG pCO2 73 H (35-45) mmHG ABG pO2 56 L (75-100) mmHG ABG HCO3 47 H (22-26) mEq/L ABG Total CO2 41.5 ABG Base Excess 18.1 H (-2.0-2.0) Lactate (0.20-2.00) mmol/L Sodium (136-145) mmol/L Potassium (3.5-5.1) mmol/L Chloride (98-107) mmol/L Carbon Dioxide (21.0-32.0) mmol/L BUN (7.0-18.0) mg/dL Creatinine (0.6-1.0) mg/dL Est Cr Clr Drug Dosing mL/min Estimated GFR (MDRD) ml/min Glucose (74-106) mg/dL Calcium (8.5-10.1) mg/dL Phosphorus (2.6-4.7) mg/dL Magnesium (1.8-2.4) mg/dL Total Bilirubin (0.2-1.0) mg/dL AST (15-37) IU/L ALT (14-63) IU/L Alkaline Phosphatase (46-116) U/L Troponin I < 0.050 (0.000-0.056) ng/mL C-Reactive Protein (0.00-0.90) mg/dL B-Natriuretic Peptide (<100) PG/ML Total Protein (6.4-8.2) g/dL Albumin (3.4-5.0) g/dL Globulin (2.6-4.0) g/dL Albumin/Globulin Ratio (0.9-1.6) SARS-CoV-2 RNA (RUBIN) (NEGATIVE) 08/07/20 Range/Units 05:26 WBC (4.0-11.0) K/uL RBC (4.30-5.90) M/uL Hgb (12.0-16.0) g/dL Hct (36.0-46.0) % MCV (80.0-98.0) fL MCH (27.0-32.0) pg MCHC (31.0-37.0) g/dL RDW Std Deviation (28.0-62.0) fl RDW Coeff of Vera (11.0-15.0) % Plt Count (150-400) K/uL MPV (7.40-12.00) fL Neut % (Auto) (48.0-80.0) % Lymph % (Auto) (16.0-40.0) % [place] % (Auto) (0.0-15.0) % Eos % (Auto) (0.0-7.0) % Baso % (Auto) (0.0-1.5) % Neut # (Auto) (1.4-5.7) K/uL Lymph # (Auto) (0.6-2.4) K/uL [place] # (Auto) (0.0-0.8) K/uL Eos # (Auto) (0.0-0.7) K/uL Baso # (Auto) (0.0-0.1) K/uL Nucleated RBC % /100WBC Nucleated RBCs # K/uL D-Dimer, Quantitative (0.0-0.50) mg/L FEU ABG pH (7.35-7.45) ABG pCO2 (35-45) mmHG ABG pO2 (75-100) mmHG ABG HCO3 (22-26) mEq/L ABG Total CO2 ABG Base Excess (-2.0-2.0) Lactate (0.20-2.00) mmol/L Sodium 141 (136-145) mmol/L Potassium 5.2 H (3.5-5.1) mmol/L Chloride 99 (98-107) mmol/L Carbon Dioxide 40.5 H (21.0-32.0) mmol/L BUN 13 (7.0-18.0) mg/dL Creatinine 0.5 L (0.6-1.0) mg/dL Est Cr Clr Drug Dosing 121.81 mL/min Estimated GFR (MDRD) > 60.0 ml/min Glucose 131 H (74-106) mg/dL Calcium 8.8 (8.5-10.1) mg/dL Phosphorus 5.6 H (2.6-4.7) mg/dL Magnesium 2.4 (1.8-2.4) mg/dL Total Bilirubin (0.2-1.0) mg/dL AST (15-37) IU/L ALT (14-63) IU/L Alkaline Phosphatase (46-116) U/L Troponin I (0.000-0.056) ng/mL C-Reactive Protein (0.00-0.90) mg/dL B-Natriuretic Peptide (<100) PG/ML Total Protein (6.4-8.2) g/dL Albumin (3.4-5.0) g/dL Globulin (2.6-4.0) g/dL Albumin/Globulin Ratio (0.9-1.6) SARS-CoV-2 RNA (RUBIN) (NEGATIVE) Twan Results Last 24 Hours: Microbiology 08/06/20 19:30 Anaerobic Blood Culture - Final Blood - Venous - Lab Draw Med Orders - Current: Current Medications Acetaminophen (Tylenol) 650 mg PO Q4H PRN PRN Reason: Pain (Mild 1-3)/fever Albuterol/Ipratropium (Duoneb 3.0-0.5 Mg/3 Ml) 3 ml NEB Q4HRRT [facility] Aspirin (Aspirin) 81 mg PO DAILY [facility] Azithromycin (Zithromax) 250 mg PO Q24H [facility] Cholecalciferol (Vitamin D3) 50 mcg PO DAILY [facility] Guaifenesin (Robitussin) 200 mg PO Q4H PRN PRN Reason: Cough Methylprednisolone Sodium Succinate (Solu-Medrol) 40 mg IVPUSH Q8H [facility] Multivitamins/Minerals/Vitamin C (Tab-A-Cheo) 1 tab PO DAILY [facility] Pantoprazole Sodium (Protonix) 40 mg PO DAILY [facility] Furosemide 40 Mg Tab 1 each PO DAILY [facility] Lisinopril 10 Mg Tab 1 each PO DAILY [facility] Fluticasone/Umeclidin/Vilanter [ Trelegy Ellipta 100- 62.5-25 Mcg] 1 each INH DAILY [facility] Sodium Chloride (Saline Flush) 10 ml FLUSH ASDIRECTED PRN PRN Reason: Keep Vein Open Last Admin: 08/06/20 17:26 Dose: 10 ml Documented by: Sodium Chloride (Saline Flush) 2.5 ml FLUSH ASDIRECTED PRN PRN Reason: Keep Vein Open Last Admin: 08/06/20 17:26 Dose: 2.5 ml Documented by: Discontinued Medications Albuterol/Ipratropium (Duoneb 3.0-0.5 Mg/3 Ml) 3 ml NEB ONETIME ONE Stop: 08/06/20 17:18 Last Admin: 08/06/20 17:27 Dose: 3 ml Documented by: Albuterol/Ipratropium (Duoneb 3.0-0.5 Mg/3 Ml) 3 ml NEB Q4HRRT PRN PRN Reason: Shortness Of Breath/wheezing Magnesium Sulfate 2 gm/ Premix 50 mls @ 50 mls/hr IV ONETIME ONE Stop: 08/06/20 18:19 Last Admin: 08/06/20 17:25 Dose: 50 mls/hr Documented by: Azithromycin 500 mg/ Sodium (Chloride) 250 mls @ 250 mls/hr IV ONETIME [facility] Last Admin: 08/06/20 19:29 Dose: 250 mls/hr Documented by: Methylprednisolone Sodium Succinate (Solu-Medrol) 125 mg IVPUSH ONETIME ONE Stop: 08/06/20 17:18 Last Admin: 08/06/20 17:25 Dose: 125 mg Documented by: - Exam General: Alert, Oriented, Cooperative, No Acute Distress Lungs: Normal Respiratory Effort, Decreased Breath Sounds, Wheezing Cardiovascular: Regular Rate, Regular Rhythm GI/Abdominal Exam: Normal Bowel Sounds, Soft, Non-Tender, No Distention Extremities: Normal Inspection, No Pedal Edema Sepsis Event Note - Evaluation Sepsis Screening Result: No Definite Risk - Focused Exam Vital Signs: Vital Signs Temp Pulse Resp BP Pulse Ox Pulse Ox 08/07/20 04:00 36.7 C 86 20 124/70 90 L 08/07/20 00:00 36.7 C 84 21 H 109/62 89 L 08/06/20 22:00 88 L 08/06/20 21:35 36.2 C 90 20 123/76 88 L 08/06/20 21:17 85 20 131/72 86 L 08/06/20 20:33 94 16 129/53 L 88 L - Problem List & Annotations (1) Acute on chronic respiratory failure with hypoxia and hypercapnia SNOMED Code(s): 47500937246646 Code(s): J96.21 - ACUTE AND CHRONIC RESPIRATORY FAILURE WITH HYPOXIA; J96.22 - ACUTE AND CHRONIC RESPIRATORY FAILURE WITH HYPERCAPNIA Status: Acute (2) COPD exacerbation SNOMED Code(s): 855796597 Code(s): J44.1 - CHRONIC OBSTRUCTIVE PULMONARY DISEASE W (ACUTE) EXACERBATION Status: Acute (3) HTN (hypertension) SNOMED Code(s): 61281324 Code(s): I10 - ESSENTIAL (PRIMARY) HYPERTENSION Status: Chronic (4) Tobacco use SNOMED Code(s): 569295534 Code(s): Z72.0 - TOBACCO USE Status: Chronic - Problem List Review Problem List Initiated/Reviewed/Updated: Yes - My Orders Last 24 Hours: My Active Orders 08/07/20 07:30 Albuterol/Ipratropium [DuoNeb 3.0-0.5 MG/3 ML] 3 ml NEB Q4HRRT 08/07/20 08:09 Code Status [Resuscitation Status] Routine 08/07/20 09:00 Pantoprazole [ProTONIX] 40 mg PO DAILY Patient's Own Medication [Ptom] 1 each INH DAILY 08/08/20 05:11 CBC WITH AUTO DIFF [HEME] AM COMPREHENSIVE METABOLIC PN,CMP [CHEM] AM MAGNESIUM [CHEM] AM PHOSPHORUS [CHEM] AM - Plan Plan:: Assessment and Plan: 1. Acute on chronic hypoxic and hypercapnic respiratory failure secondary to COPD exacerbation: - Continue supplemental oxygen to maintain O2 sat > 88%, Duonebs q4 [facility], IV solumedrol 40 mg q8h, azithromycin and incentive spirometry. Continue Trelegy inhalers. Patient on PPI. - CXR unremarkable. COVID-19 test negative. - Baseline home oxygen requirement is 2-3 L. - Will consult pediatric social worker regarding applying for disability. 2. DVT prophylaxis: - Heparin 5,000 units subcut q8h. <Mickey Palafox - Last Filed: 08/13/20 11:12> - General Info Subjective Update: I have seen and evaluated the patient and agree with the residents note unless specified in my note - Patient Data Vitals - Most Recent: Last Vital Signs Temp 36.8 C 08/08/20 11:41 Pulse 104 H 08/08/20 11:41 Resp 16 08/08/20 11:41 BP 112/77 08/08/20 11:41 Pulse Ox 89 L 08/08/20 11:41 Med Orders - Current: Current Medications Discontinued Medications Acetaminophen (Tylenol) 650 mg PO Q4H PRN PRN Reason: Pain (Mild 1-3)/fever Albuterol/Ipratropium (Duoneb 3.0-0.5 Mg/3 Ml) 3 ml NEB ONETIME ONE Stop: 08/06/20 17:18 Last Admin: 08/06/20 17:27 Dose: 3 ml Documented by: Albuterol/Ipratropium (Duoneb 3.0-0.5 Mg/3 Ml) 3 ml NEB Q4HRRT PRN PRN Reason: Shortness Of Breath/wheezing Albuterol/Ipratropium (Duoneb 3.0-0.5 Mg/3 Ml) 3 ml NEB Q4HRRT [facility] Last Admin: 08/08/20 09:39 Dose: 3 ml Documented by: Aspirin (Aspirin) 81 mg PO DAILY [facility] Azithromycin (Zithromax) 250 mg PO Q24H [facility] Last Admin: 08/08/20 09:00 Dose: 250 mg Documented by: Cholecalciferol (Vitamin D3) 50 mcg PO DAILY [facility] Last Admin: 08/08/20 09:01 Dose: Not Given Documented by: Guaifenesin (Robitussin) 200 mg PO Q4H PRN PRN Reason: Cough Heparin Sodium (Porcine) (Heparin Sodium) 5,000 units SUBCUT Q8H [facility] Last Admin: 08/08/20 08:47 Dose: 5,000 units Documented by: Magnesium Sulfate 2 gm/ Premix 50 mls @ 50 mls/hr IV ONETIME ONE Stop: 08/06/20 18:19 Last Admin: 08/06/20 17:25 Dose: 50 mls/hr Documented by: Azithromycin 500 mg/ Sodium (Chloride) 250 mls @ 250 mls/hr IV ONETIME [facility] Last Admin: 08/06/20 19:29 Dose: 250 mls/hr Documented by: Methylprednisolone Sodium Succinate (Solu-Medrol) 125 mg IVPUSH ONETIME ONE Stop: 08/06/20 17:18 Last Admin: 08/06/20 17:25 Dose: 125 mg Documented by: Methylprednisolone Sodium Succinate (Solu-Medrol) 40 mg IVPUSH Q8H [facility] Last Admin: 08/08/20 08:48 Dose: 40 mg Documented by: Multivitamins/Minerals/Vitamin C (Tab-A-Cheo) 1 tab PO DAILY [facility] Pantoprazole Sodium (Protonix) 40 mg PO DAILY [facility] Last Admin: 08/08/20 09:00 Dose: 40 mg Documented by: Furosemide 40 Mg Tab 1 each PO DAILY [facility] Last Admin: 08/08/20 08:58 Dose: 1 each Documented by: Lisinopril 10 Mg Tab 1 each PO DAILY [facility] Last Admin: 08/08/20 08:58 Dose: 1 each Documented by: Fluticasone/Umeclidin/Vilanter [ Trelegy Ellipta 100- 62.5-25 Mcg] 1 each INH DAILY [facility] Last Admin: 08/08/20 08:58 Dose: 1 each Documented by: Aspirin 81 Mg Tab 1 each PO DAILY [facility] Last Admin: 08/08/20 08:59 Dose: 1 each Documented by: Women's Multivitamin (Tablet) 1 each PO DAILY [facility] Last Admin: 08/08/20 08:59 Dose: 1 each Documented by: Sodium Chloride (Saline Flush) 10 ml FLUSH ASDIRECTED PRN PRN Reason: Keep Vein Open Last Admin: 08/06/20 17:26 Dose: 10 ml Documented by: Sodium Chloride (Saline Flush) 2.5 ml FLUSH ASDIRECTED PRN PRN Reason: Keep Vein Open Last Admin: 08/06/20 17:26 Dose: 2.5 ml Documented by: - Patient Data Result Diagrams: 08/08/20 05:18 08/08/20 05:18 - Problem List & Annotations (1) Acute on chronic respiratory failure with hypoxia and hypercapnia SNOMED Code(s): 49861864786715 Code(s): J96.21 - ACUTE AND CHRONIC RESPIRATORY FAILURE WITH HYPOXIA; J96.22 - ACUTE AND CHRONIC RESPIRATORY FAILURE WITH HYPERCAPNIA Status: Acute (2) COPD exacerbation SNOMED Code(s): 199379070 Code(s): J44.1 - CHRONIC OBSTRUCTIVE PULMONARY DISEASE W (ACUTE) EXACERBATION Status: Acute (3) HTN (hypertension) SNOMED Code(s): 99885910 Code(s): I10 - ESSENTIAL (PRIMARY) HYPERTENSION Status: Chronic (4) Obesity SNOMED Code(s): 401971712, 127796583 Code(s): E66.9 - OBESITY, UNSPECIFIED Status: Chronic (5) Tobacco use SNOMED Code(s): 405825149 Code(s): Z72.0 - TOBACCO USE Status: Chronic
[2020-08-07] MEDS: Fluticasone/Umeclidin/Vilanter [Trelegy Ellipta 100-62.5-25 Mcg] INH SCH (08:37)
[2020-08-07] MEDS: Furosemide 40 MG Tab PO SCH (08:38)
[2020-08-07] MEDS: Azithromycin 250 MG Tab PO SCH (08:42)
[2020-08-07] MEDS: Cholecalciferol (Vitamin D3) 25 MCG Tab PO SCH (08:42)
[2020-08-07] MEDS: Pantoprazole 40 MG Tab.CR PO SCH (08:43)
[2020-08-07] MEDS: Lisinopril 10 MG Tab PO SCH (08:45)
[2020-08-07] MEDS: methylPREDNISolone Sodium Succinate 40 MG/1 ML SDV IVPUSH SCH ×2 (08:48→17:19)
[2020-08-07] MEDS: WOMEN S MULTIVITAMIN PO SCH (08:53)
[2020-08-07] MEDS: Heparin Sodium 5,000 Units/ML Vial SUBCUT SCH ×2 (08:54→17:25)
[2020-08-07] MEDS ORDERED: Aspirin 81 MG Tab.Chew PO SCH (09:00)
[2020-08-07] MEDS ORDERED: Multivitamin Tab PO SCH (09:00)
[2020-08-08] MEDS: Heparin Sodium 5,000 Units/ML Vial SUBCUT SCH ×2 (01:03→08:47)
[2020-08-08] MEDS: methylPREDNISolone Sodium Succinate 40 MG/1 ML SDV IVPUSH SCH ×2 (01:03→08:48)
[2020-08-08] MEDS: Albuterol/Ipratropium 3.0-0.5 MG/3 ML Neb Soln NEB SCH ×3 (01:04→09:39)
[2020-08-08 06:14] LABS: BLOOD UREA NITROGEN,BUN 16 mg/dL (7.0-18.0); CARBON DIOXIDE,CO2 39.6 mmol/L (21.0-32.0); CHLORIDE,CL 96 mmol/L (98-107); GLUCOSE RANDOM 139 mg/dL (74-106); SODIUM,NA 138 mmol/L (136-145)
[2020-08-08] MEDS: Fluticasone/Umeclidin/Vilanter [Trelegy Ellipta 100-62.5-25 Mcg] INH SCH (08:58)
[2020-08-08] MEDS: Furosemide 40 MG Tab PO SCH (08:58)
[2020-08-08] MEDS: Lisinopril 10 MG Tab PO SCH (08:58)
[2020-08-08] MEDS: WOMEN S MULTIVITAMIN PO SCH (08:59)
[2020-08-08] MEDS: Azithromycin 250 MG Tab PO SCH (09:00)
[2020-08-08] MEDS: Pantoprazole 40 MG Tab.CR PO SCH (09:00)
[2020-08-08] MEDS: Cholecalciferol (Vitamin D3) 25 MCG Tab PO SCH (09:01)
--- NOTE | 2020-08-08 09:01 | PCM.PN ---
- General Info Date of Service: 08/08/20 Subjective Update: Reports breathing feels a bit better compared to yesterday. Tolerating oral diet. No fevers, chills, nausea, vomiting or chest pain. Would like to try walking around this morning. - Patient Data Vitals - Most Recent: Last Vital Signs Temp 36.7 C 08/08/20 04:00 Pulse 76 08/08/20 04:00 Resp 18 08/08/20 04:00 BP 110/62 08/08/20 04:00 Pulse Ox 88 L 08/08/20 04:00 Weight - Most Recent: 113.398 kg I&O - Last 24 Hours: Intake & Output 08/07/20 08/08/20 08/08/20 22:59 06:59 14:59 Intake Total 720 650 Output Total 520 Balance 720 130 Lab Results Last 24 Hours: Laboratory Results - last 24 hr 08/08/20 08/08/20 Range/Units 05:18 05:18 WBC 9.80 (4.0-11.0) K/uL RBC 4.89 (4.30-5.90) M/uL Hgb 15.6 (12.0-16.0) g/dL Hct 48.7 H (36.0-46.0) % MCV 99.6 H (80.0-98.0) fL MCH 31.9 (27.0-32.0) pg MCHC 32.0 (31.0-37.0) g/dL RDW Std Deviation 49.3 (28.0-62.0) fl RDW Coeff of Vera 14 (11.0-15.0) % Plt Count 259 (150-400) K/uL MPV 10.80 (7.40-12.00) fL Neut % (Auto) 92.6 H (48.0-80.0) % Lymph % (Auto) 4.4 L (16.0-40.0) % [place] % (Auto) 3.0 (0.0-15.0) % Eos % (Auto) 0.0 (0.0-7.0) % Baso % (Auto) 0.0 (0.0-1.5) % Neut # (Auto) 9.1 H (1.4-5.7) K/uL Lymph # (Auto) 0.4 L (0.6-2.4) K/uL [place] # (Auto) 0.3 (0.0-0.8) K/uL Eos # (Auto) 0.0 (0.0-0.7) K/uL Baso # (Auto) 0.0 (0.0-0.1) K/uL Nucleated RBC % 0.0 /100WBC Nucleated RBCs # 0 K/uL Sodium 138 (136-145) mmol/L Potassium 5.0 (3.5-5.1) mmol/L Chloride 96 L (98-107) mmol/L Carbon Dioxide 39.6 H (21.0-32.0) mmol/L BUN 16 (7.0-18.0) mg/dL Creatinine 0.6 (0.6-1.0) mg/dL Est Cr Clr Drug Dosing 101.51 mL/min Estimated GFR (MDRD) > 60.0 ml/min Glucose 139 H (74-106) mg/dL Calcium 9.1 (8.5-10.1) mg/dL Phosphorus 5.5 H (2.6-4.7) mg/dL Magnesium 2.2 (1.8-2.4) mg/dL Total Bilirubin 0.3 (0.2-1.0) mg/dL AST 10 L (15-37) IU/L ALT 33 (14-63) IU/L Alkaline Phosphatase 98 (46-116) U/L Total Protein 7.0 (6.4-8.2) g/dL Albumin 3.3 L (3.4-5.0) g/dL Globulin 3.7 (2.6-4.0) g/dL Albumin/Globulin Ratio 0.9 (0.9-1.6) Twan Results Last 24 Hours: Microbiology 08/06/20 19:30 Aerobic Blood Culture - Preliminary Blood - Venous - Lab Draw NO GROWTH AFTER 1 DAY Anaerobic Blood Culture - Final 08/06/20 19:24 Aerobic Blood Culture - Preliminary Blood - Venous NO GROWTH AFTER 1 DAY Anaerobic Blood Culture - Preliminary NO GROWTH AFTER 1 DAY Med Orders - Current: Current Medications Acetaminophen (Tylenol) 650 mg PO Q4H PRN PRN Reason: Pain (Mild 1-3)/fever Albuterol/Ipratropium (Duoneb 3.0-0.5 Mg/3 Ml) 3 ml NEB Q4HRRT [facility] Last Admin: 08/08/20 05:49 Dose: 3 ml Documented by: Azithromycin (Zithromax) 250 mg PO Q24H [facility] Last Admin: 08/07/20 08:42 Dose: 250 mg Documented by: Cholecalciferol (Vitamin D3) 50 mcg PO DAILY [facility] Last Admin: 08/07/20 08:42 Dose: Not Given Documented by: Guaifenesin (Robitussin) 200 mg PO Q4H PRN PRN Reason: Cough Heparin Sodium (Porcine) (Heparin Sodium) 5,000 units SUBCUT Q8H [facility] Last Admin: 08/08/20 01:03 Dose: 5,000 units Documented by: Methylprednisolone Sodium Succinate (Solu-Medrol) 40 mg IVPUSH Q8H [facility] Last Admin: 08/08/20 01:03 Dose: 40 mg Documented by: Pantoprazole Sodium (Protonix) 40 mg PO DAILY [facility] Last Admin: 08/07/20 08:43 Dose: 40 mg Documented by: Furosemide 40 Mg Tab 1 each PO DAILY [facility] Last Admin: 08/07/20 08:38 Dose: 1 each Documented by: Lisinopril 10 Mg Tab 1 each PO DAILY [facility] Last Admin: 08/07/20 08:45 Dose: 1 each Documented by: Fluticasone/Umeclidin/Vilanter [ Trelegy Ellipta 100- 62.5-25 Mcg] 1 each INH DAILY [facility] Last Admin: 08/07/20 08:37 Dose: 1 each Documented by: Aspirin 81 Mg Tab 1 each PO DAILY [facility] Last Admin: 08/07/20 08:53 Dose: 1 each Documented by: Women's Multivitamin (Tablet) 1 each PO DAILY [facility] Last Admin: 08/07/20 08:53 Dose: 1 each Documented by: Sodium Chloride (Saline Flush) 10 ml FLUSH ASDIRECTED PRN PRN Reason: Keep Vein Open Last Admin: 08/06/20 17:26 Dose: 10 ml Documented by: Sodium Chloride (Saline Flush) 2.5 ml FLUSH ASDIRECTED PRN PRN Reason: Keep Vein Open Last Admin: 08/06/20 17:26 Dose: 2.5 ml Documented by: Discontinued Medications Albuterol/Ipratropium (Duoneb 3.0-0.5 Mg/3 Ml) 3 ml NEB ONETIME ONE Stop: 02/16/21 17:18 Last Admin: 08/06/20 17:27 Dose: 3 ml Documented by: Albuterol/Ipratropium (Duoneb 3.0-0.5 Mg/3 Ml) 3 ml NEB Q4HRRT PRN PRN Reason: Shortness Of Breath/wheezing Aspirin (Aspirin) 81 mg PO DAILY [facility] Magnesium Sulfate 2 gm/ Premix 50 mls @ 50 mls/hr IV ONETIME ONE Stop: 08/06/20 18:19 Last Admin: 08/06/20 17:25 Dose: 50 mls/hr Documented by: Azithromycin 500 mg/ Sodium (Chloride) 250 mls @ 250 mls/hr IV ONETIME [facility] Last Admin: 08/06/20 19:29 Dose: 250 mls/hr Documented by: Methylprednisolone Sodium Succinate (Solu-Medrol) 125 mg IVPUSH ONETIME ONE Stop: 08/06/20 17:18 Last Admin: 08/06/20 17:25 Dose: 125 mg Documented by: Multivitamins/Minerals/Vitamin C (Tab-A-Cheo) 1 tab PO DAILY [facility] - Exam General: Alert, Oriented, Cooperative, No Acute Distress Lungs: Clear to Auscultation, Normal Respiratory Effort Cardiovascular: Regular Rate, Regular Rhythm GI/Abdominal Exam: Normal Bowel Sounds, Soft, Non-Tender, No Distention Extremities: Normal Inspection, No Pedal Edema Sepsis Event Note - Evaluation Sepsis Screening Result: No Definite Risk - Focused Exam Vital Signs: Vital Signs Temp Pulse Resp BP Pulse Ox 08/08/20 04:00 36.7 C 76 18 110/62 88 L 08/08/20 00:00 36.5 C 82 18 111/53 L 92 L - Problem List & Annotations (1) Acute on chronic respiratory failure with hypoxia and hypercapnia SNOMED Code(s): 10210608821953 Code(s): J96.21 - ACUTE AND CHRONIC RESPIRATORY FAILURE WITH HYPOXIA; J96.22 - ACUTE AND CHRONIC RESPIRATORY FAILURE WITH HYPERCAPNIA Status: Acute Current Visit: No (2) COPD exacerbation SNOMED Code(s): 885813188 Code(s): J44.1 - CHRONIC OBSTRUCTIVE PULMONARY DISEASE W (ACUTE) EXACERBATION Status: Acute Current Visit: Yes (3) HTN (hypertension) SNOMED Code(s): 40803518 Code(s): I10 - ESSENTIAL (PRIMARY) HYPERTENSION Status: Chronic Current Visit: No (4) Tobacco use SNOMED Code(s): 477236728 Code(s): Z72.0 - TOBACCO USE Status: Chronic Current Visit: No - Problem List Review Problem List Initiated/Reviewed/Updated: Yes - My Orders Last 24 Hours: My Active Orders 08/07/20 08:09 Code Status [Resuscitation Status] Routine 08/07/20 08:30 Heparin Sodium 5,000 units SUBCUT Q8H 08/07/20 09:00 Pantoprazole [ProTONIX] 40 mg PO DAILY Patient's Own Medication [Ptom] 1 each INH DAILY 08/07/20 10:15 RT Incentive Spirometry [RC] ASDIRECTED 08/07/20 10:16 Consult to Case Management/Auxiliary Equipment Operator [CONS] Routine - Plan Plan:: Assessment and Plan: 1. Acute on chronic hypoxic and hypercapnic respiratory failure secondary to COPD exacerbation: - Supplemental oxygen to maintain O2 sat > 88%, Duonebs q4 [facility], IV solumedrol 40 mg q8h, azithromycin and incentive spirometry. Continue Trelegy inhalers. Patient on PPI. - CXR unremarkable. COVID-19 test negative. - Baseline home oxygen requirement is 2-3 L. - Will consult geriatric social work professor regarding applying for disability. 2. DVT prophylaxis: - Heparin 5,000 units subcut q8h.
[2020-08-08 11:43] VITALS: BP 112/77; PULSE 104
--- NOTE | 2020-08-08 12:15 | PCM.DCSUM1 ---
<Costa Lawrence - Last Filed: 08/08/20 14:34> Discharge Summary - Hospital Course Free Text/Narrative:: 55-year-old female admitted for acute hypoxic and hypercapnic respiratory failure secondary to COPD exacerbation. She has a PMH of COPD (home O2 baseline 4 L), HTN and CHF. CXR unremarkable. COVID-19 test negative. D-dimer normal. ABG showed pH 7.4, pO2 56, pCO2 73 and HC03 47. She was treated with Duonebs, IV solumedrol and azithromycin. Encouraged incentive spirometer use. Patient noted improvement in breathing during her stay. She returned to her baseline oxygen requirements by day of discharge. donor services coordinator consulted during hospitalization to provide education on how to apply for disability. She was discharged in stable condition with 12-day prednisone taper and 2 more days of azithromycin. Work note provided. Advised to follow-up with PCP. - Discharge Data Discharge Date: 08/08/20 Discharge Disposition: Home, Self-Care 01 Condition: Stable - Referral to Home Health Primary Care Physician: Hernesto Gong MD - Discharge Diagnosis/Problem(s) (1) Acute on chronic respiratory failure with hypoxia and hypercapnia SNOMED Code(s): 10393527358136 ICD Code: J96.21 - ACUTE AND CHRONIC RESPIRATORY FAILURE WITH HYPOXIA; J96.22 - ACUTE AND CHRONIC RESPIRATORY FAILURE WITH HYPERCAPNIA Status: Acute (2) COPD exacerbation SNOMED Code(s): 360373549 ICD Code: J44.1 - CHRONIC OBSTRUCTIVE PULMONARY DISEASE W (ACUTE) EXACERBATION Status: Acute (3) HTN (hypertension) SNOMED Code(s): 94616755 ICD Code: I10 - ESSENTIAL (PRIMARY) HYPERTENSION Status: Chronic (4) Tobacco use SNOMED Code(s): 122362273 ICD Code: Z72.0 - TOBACCO USE Status: Chronic - Patient Summary/Data Consults: Consultations 08/07/20 10:16 Consult to Case Management/Home Security Professional [CONS] Routine - Patient Instructions Diet: Heart Healthy Diet Activity: As Tolerated Notify Provider of: Fever, Increased Pain, Swelling and Redness, Drainage, Nausea and/or Vomiting - Discharge Plan *PRESCRIPTION DRUG MONITORING PROGRAM REVIEWED*: Not Applicable *COPY OF PRESCRIPTION DRUG MONITORING REPORT IN PATIENT VALENTE: Not Applicable Prescriptions/Med Rec: predniSONE [Prednisone] 20 mg PO DAILY 12 Days #24 tablet Pantoprazole [ProTONIX] 40 mg PO DAILY 12 Days #12 tab.cr Azithromycin [Zithromax] 250 mg PO Q24H 2 Days #2 tablet Home Medications: Home Meds Albuterol Sulfate 2.5 mg NEB Q4H PRN 12/05/19 [History] Aspirin 81 mg PO DAILY 12/05/19 [History] Cholecalciferol (Vitamin D3) [Vitamin D3] 50 mcg PO DAILY 12/05/19 [History] Multivitamin [Multi-Vitamin Daily] 1 tab PO DAILY 12/05/19 [History] Vitamin E (Dl,Tocopheryl Acet) [Vitamin E] 1 tab PO DAILY 12/05/19 [History] lisinopriL [Lisinopril] 10 mg PO DAILY 12/05/19 [History] Albuterol [Ventolin HFA] 1 dose INH Q4H PRN 08/06/20 [History] Fluconazole [Diflucan] 150 mg PO DAILY 08/06/20 [History] Fluticasone/Umeclidin/Vilanter [Trelegy Ellipta 100-62.5-25 MCG] 1 puff INH DAILY 08/06/20 [History] Furosemide [Lasix] 40 mg PO DAILY 08/06/20 [History] Azithromycin [Zithromax] 250 mg PO Q24H 2 Days #2 tablet 08/08/20 [Rx] Pantoprazole [ProTONIX] 40 mg PO DAILY 12 Days #12 tab.cr 08/08/20 [Rx] predniSONE [Prednisone] 20 mg PO DAILY 12 Days #24 tablet 08/08/20 [Rx] Oxygen Therapy Mode: Nasal Cannula Oxygen Flow Rate (L/min): 3.5 Patient Handouts: Chronic Obstructive Pulmonary Disease Exacerbation, Zini-ak-Yaes, Azithromycin tablets, Pantoprazole tablets, Prednisone tablets Referrals: Hernesto Gong MD [Primary Care Provider] - 08/13/20 10:15 am - Discharge Summary/Plan Comment DC Time >30 min.: No - Patient Data Vitals - Most Recent: Last Vital Signs Temp 36.8 C 08/08/20 11:41 Pulse 104 H 08/08/20 11:41 Resp 16 08/08/20 11:41 BP 112/77 08/08/20 11:41 Pulse Ox 89 L 08/08/20 11:41 Weight - Most Recent: 113.398 kg I&O - Last 24 hours: Intake & Output 08/07/20 08/08/20 08/08/20 22:59 06:59 14:59 Intake Total 720 650 Output Total 520 Balance 720 130 Lab Results - Last 24 hrs: Laboratory Results - last 24 hr 08/08/20 08/08/20 Range/Units 05:18 05:18 WBC 9.80 (4.0-11.0) K/uL RBC 4.89 (4.30-5.90) M/uL Hgb 15.6 (12.0-16.0) g/dL Hct 48.7 H (36.0-46.0) % MCV 99.6 H (80.0-98.0) fL MCH 31.9 (27.0-32.0) pg MCHC 32.0 (31.0-37.0) g/dL RDW Std Deviation 49.3 (28.0-62.0) fl RDW Coeff of Vera 14 (11.0-15.0) % Plt Count 259 (150-400) K/uL MPV 10.80 (7.40-12.00) fL Neut % (Auto) 92.6 H (48.0-80.0) % Lymph % (Auto) 4.4 L (16.0-40.0) % [place] % (Auto) 3.0 (0.0-15.0) % Eos % (Auto) 0.0 (0.0-7.0) % Baso % (Auto) 0.0 (0.0-1.5) % Neut # (Auto) 9.1 H (1.4-5.7) K/uL Lymph # (Auto) 0.4 L (0.6-2.4) K/uL [place] # (Auto) 0.3 (0.0-0.8) K/uL Eos # (Auto) 0.0 (0.0-0.7) K/uL Baso # (Auto) 0.0 (0.0-0.1) K/uL Nucleated RBC % 0.0 /100WBC Nucleated RBCs # 0 K/uL Sodium 138 (136-145) mmol/L Potassium 5.0 (3.5-5.1) mmol/L Chloride 96 L (98-107) mmol/L Carbon Dioxide 39.6 H (21.0-32.0) mmol/L BUN 16 (7.0-18.0) mg/dL Creatinine 0.6 (0.6-1.0) mg/dL Est Cr Clr Drug Dosing 101.51 mL/min Estimated GFR (MDRD) > 60.0 ml/min Glucose 139 H (74-106) mg/dL Calcium 9.1 (8.5-10.1) mg/dL Phosphorus 5.5 H (2.6-4.7) mg/dL Magnesium 2.2 (1.8-2.4) mg/dL Total Bilirubin 0.3 (0.2-1.0) mg/dL AST 10 L (15-37) IU/L ALT 33 (14-63) IU/L Alkaline Phosphatase 98 (46-116) U/L Total Protein 7.0 (6.4-8.2) g/dL Albumin 3.3 L (3.4-5.0) g/dL Globulin 3.7 (2.6-4.0) g/dL Albumin/Globulin Ratio 0.9 (0.9-1.6) JAMES Results - Last 24 hrs: Microbiology 08/06/20 19:30 Aerobic Blood Culture - Preliminary Blood - Venous - Lab Draw NO GROWTH AFTER 1 DAY Anaerobic Blood Culture - Final 08/06/20 19:24 Aerobic Blood Culture - Preliminary Blood - Venous NO GROWTH AFTER 1 DAY Anaerobic Blood Culture - Preliminary NO GROWTH AFTER 1 DAY Med Orders - Current: Current Medications Acetaminophen (Tylenol) 650 mg PO Q4H PRN PRN Reason: Pain (Mild 1-3)/fever Albuterol/Ipratropium (Duoneb 3.0-0.5 Mg/3 Ml) 3 ml NEB Q4HRRT [facility] Last Admin: 08/08/20 09:39 Dose: 3 ml Documented by: Azithromycin (Zithromax) 250 mg PO Q24H [facility] Last Admin: 08/08/20 09:00 Dose: 250 mg Documented by: Cholecalciferol (Vitamin D3) 50 mcg PO DAILY [facility] Last Admin: 08/08/20 09:01 Dose: Not Given Documented by: Guaifenesin (Robitussin) 200 mg PO Q4H PRN PRN Reason: Cough Heparin Sodium (Porcine) (Heparin Sodium) 5,000 units SUBCUT Q8H [facility] Last Admin: 08/08/20 08:47 Dose: 5,000 units Documented by: Methylprednisolone Sodium Succinate (Solu-Medrol) 40 mg IVPUSH Q8H [facility] Last Admin: 08/08/20 08:48 Dose: 40 mg Documented by: Pantoprazole Sodium (Protonix) 40 mg PO DAILY [facility] Last Admin: 08/08/20 09:00 Dose: 40 mg Documented by: Furosemide 40 Mg Tab 1 each PO DAILY [facility] Last Admin: 08/08/20 08:58 Dose: 1 each Documented by: Lisinopril 10 Mg Tab 1 each PO DAILY [facility] Last Admin: 08/08/20 08:58 Dose: 1 each Documented by: Fluticasone/Umeclidin/Vilanter [ Trelegy Ellipta 100- 62.5-25 Mcg] 1 each INH DAILY [facility] Last Admin: 08/08/20 08:58 Dose: 1 each Documented by: Aspirin 81 Mg Tab 1 each PO DAILY [facility] Last Admin: 08/08/20 08:59 Dose: 1 each Documented by: Women's Multivitamin (Tablet) 1 each PO DAILY [facility] Last Admin: 08/08/20 08:59 Dose: 1 each Documented by: Sodium Chloride (Saline Flush) 10 ml FLUSH ASDIRECTED PRN PRN Reason: Keep Vein Open Last Admin: 08/06/20 17:26 Dose: 10 ml Documented by: Sodium Chloride (Saline Flush) 2.5 ml FLUSH ASDIRECTED PRN PRN Reason: Keep Vein Open Last Admin: 08/06/20 17:26 Dose: 2.5 ml Documented by: Discontinued Medications Albuterol/Ipratropium (Duoneb 3.0-0.5 Mg/3 Ml) 3 ml NEB ONETIME ONE Stop: 08/06/20 17:18 Last Admin: 08/06/20 17:27 Dose: 3 ml Documented by: Albuterol/Ipratropium (Duoneb 3.0-0.5 Mg/3 Ml) 3 ml NEB Q4HRRT PRN PRN Reason: Shortness Of Breath/wheezing Aspirin (Aspirin) 81 mg PO DAILY [facility] Magnesium Sulfate 2 gm/ Premix 50 mls @ 50 mls/hr IV ONETIME ONE Stop: 08/06/20 18:19 Last Admin: 08/06/20 17:25 Dose: 50 mls/hr Documented by: Azithromycin 500 mg/ Sodium (Chloride) 250 mls @ 250 mls/hr IV ONETIME [facility] Last Admin: 08/06/20 19:29 Dose: 250 mls/hr Documented by: Methylprednisolone Sodium Succinate (Solu-Medrol) 125 mg IVPUSH ONETIME ONE Stop: 08/06/20 17:18 Last Admin: 08/06/20 17:25 Dose: 125 mg Documented by: Multivitamins/Minerals/Vitamin C (Tab-A-Cheo) 1 tab PO DAILY [facility] <Mickey Palafox - Last Filed: 08/13/20 11:07> Discharge Summary - Hospital Course Free Text/Narrative:: I have seen and evaluated the patient and agree with the residents note unless specified in my note - Referral to Home Health Primary Care Physician: Hernesto Gong MD - Discharge Diagnosis/Problem(s) (1) Acute on chronic respiratory failure with hypoxia and hypercapnia SNOMED Code(s): 95131815783758 ICD Code: J96.21 - ACUTE AND CHRONIC RESPIRATORY FAILURE WITH HYPOXIA; J96.22 - ACUTE AND CHRONIC RESPIRATORY FAILURE WITH HYPERCAPNIA Status: Acute (2) COPD exacerbation SNOMED Code(s): 424104497 ICD Code: J44.1 - CHRONIC OBSTRUCTIVE PULMONARY DISEASE W (ACUTE) EXACERBATION Status: Acute (3) HTN (hypertension) SNOMED Code(s): 70176149 ICD Code: I10 - ESSENTIAL (PRIMARY) HYPERTENSION Status: Chronic (4) Obesity SNOMED Code(s): 274982178, 002348043 ICD Code: E66.9 - OBESITY, UNSPECIFIED Status: Chronic (5) Tobacco use SNOMED Code(s): 532092291 ICD Code: Z72.0 - TOBACCO USE Status: Chronic - Patient Summary/Data Consults: Consultations 08/07/20 10:16 Consult to Case Management/Home Security Professional [CONS] Routine - Patient Data Vitals - Most Recent: Last Vital Signs Temp 36.8 C 08/08/20 11:41 Pulse 104 H 08/08/20 11:41 Resp 16 08/08/20 11:41 BP 112/77 08/08/20 11:41 Pulse Ox 89 L 08/08/20 11:41 Med Orders - Current: Current Medications Discontinued Medications Acetaminophen (Tylenol) 650 mg PO Q4H PRN PRN Reason: Pain (Mild 1-3)/fever Albuterol/Ipratropium (Duoneb 3.0-0.5 Mg/3 Ml) 3 ml NEB ONETIME ONE Stop: 08/06/20 17:18 Last Admin: 08/06/20 17:27 Dose: 3 ml Documented by: Albuterol/Ipratropium (Duoneb 3.0-0.5 Mg/3 Ml) 3 ml NEB Q4HRRT PRN PRN Reason: Shortness Of Breath/wheezing Albuterol/Ipratropium (Duoneb 3.0-0.5 Mg/3 Ml) 3 ml NEB Q4HRRT [facility] Last Admin: 08/08/20 09:39 Dose: 3 ml Documented by: Aspirin (Aspirin) 81 mg PO DAILY [facility] Azithromycin (Zithromax) 250 mg PO Q24H [facility] Last Admin: 08/08/20 09:00 Dose: 250 mg Documented by: Cholecalciferol (Vitamin D3) 50 mcg PO DAILY [facility] Last Admin: 08/08/20 09:01 Dose: Not Given Documented by: Guaifenesin (Robitussin) 200 mg PO Q4H PRN PRN Reason: Cough Heparin Sodium (Porcine) (Heparin Sodium) 5,000 units SUBCUT Q8H [facility] Last Admin: 08/08/20 08:47 Dose: 5,000 units Documented by: Magnesium Sulfate 2 gm/ Premix 50 mls @ 50 mls/hr IV ONETIME ONE Stop: 08/06/20 18:19 Last Admin: 08/06/20 17:25 Dose: 50 mls/hr Documented by: Azithromycin 500 mg/ Sodium (Chloride) 250 mls @ 250 mls/hr IV ONETIME [facility] Last Admin: 08/06/20 19:29 Dose: 250 mls/hr Documented by: Methylprednisolone Sodium Succinate (Solu-Medrol) 125 mg IVPUSH ONETIME ONE Stop: 08/06/20 17:18 Last Admin: 08/06/20 17:25 Dose: 125 mg Documented by: Methylprednisolone Sodium Succinate (Solu-Medrol) 40 mg IVPUSH Q8H [facility] Last Admin: 08/08/20 08:48 Dose: 40 mg Documented by: Multivitamins/Minerals/Vitamin C (Tab-A-Cheo) 1 tab PO DAILY [facility] Pantoprazole Sodium (Protonix) 40 mg PO DAILY [facility] Last Admin: 08/08/20 09:00 Dose: 40 mg Documented by: Furosemide 40 Mg Tab 1 each PO DAILY [facility] Last Admin: 08/08/20 08:58 Dose: 1 each Documented by: Lisinopril 10 Mg Tab 1 each PO DAILY [facility] Last Admin: 08/08/20 08:58 Dose: 1 each Documented by: Fluticasone/Umeclidin/Vilanter [ Trelegy Ellipta 100- 62.5-25 Mcg] 1 each INH DAILY [facility] Last Admin: 08/08/20 08:58 Dose: 1 each Documented by: Aspirin 81 Mg Tab 1 each PO DAILY [facility] Last Admin: 08/08/20 08:59 Dose: 1 each Documented by: Women's Multivitamin (Tablet) 1 each PO DAILY [facility] Last Admin: 08/08/20 08:59 Dose: 1 each Documented by: Sodium Chloride (Saline Flush) 10 ml FLUSH ASDIRECTED PRN PRN Reason: Keep Vein Open Last Admin: 08/06/20 17:26 Dose: 10 ml Documented by: Sodium Chloride (Saline Flush) 2.5 ml FLUSH ASDIRECTED PRN PRN Reason: Keep Vein Open Last Admin: 08/06/20 17:26 Dose: 2.5 ml Documented by:
== END 2020-08-08 12:38 | disposition home or self-care (01) ==
LOC: MW.ED 17:02 → MW.MS 19:46
PROVIDERS: ADMIT Student in an Organized Health Care Education/Training Program; ATTEND Student in an Organized Health Care Education/Training Program
DX: J44.1 Chronic obstructive pulmonary disease with (acute) exacerbation (principal); J96.22 Acute and chronic respiratory failure with hypercapnia; J96.21 Acute and chronic respiratory failure with hypoxia; I11.0 Hypertensive heart disease with heart failure; I50.9 Heart failure, unspecified; E66.9 Obesity, unspecified; Z88.1 Allergy status to other antibiotic agents; Z99.81 Dependence on supplemental oxygen; Z88.5 Allergy status to narcotic agent; Z88.8 Allergy status to other drugs, medicaments and biological substances; Z20.822 Contact with and (suspected) exposure to COVID-19; Z79.82 Long term (current) use of aspirin; Z79.899 Other long term (current) drug therapy; Z98.890 Other specified postprocedural states; Z87.891 Personal history of nicotine dependence; Z68.41 Body mass index [BMI] 40.0-44.9, adult
CPT/HCPCS: 36415; 36600; 71045; 80048; 80053; 82803; 83605; 83735; 83880; 84100; 84484; 85025; 85379; 86140; 87040; 87635; 93005; 94640; 96365; 96367; 96372; 96375; 96376; 99285; A9270; G0378; J0456; J1644; J2920; J2930; J3475; J7050; 93010; 99284; J7620-GY; U0002

== ENCOUNTER 2020-12-03 20:13 | Inpatient (IN) | payer OTHER ==
--- NOTE | 2020-12-03 20:30 | EDM.PDOC ---
ED HPI GENERAL MEDICAL PROBLEM - General Chief Complaint: Respiratory Problem Stated Complaint: DIFFICULTY BREATHING Time Seen by Provider: 12/03/20 20:25 - History of Present Illness INITIAL COMMENTS - FREE TEXT/NARRATIVE: 55-year-old female with a history of advanced COPD on 3 L nasal cannula at baseline presenting with worsening shortness of breath finger paresthesias and worsening fatigue as well as increased phlegm production over the last 48 hours. No fevers or chest pain. Patient finished a course of steroids and oral antibiotics number primary provider approximately 1 week ago. No fevers. No known sick contacts. Patient's been doing her neb treatments at home with minimal improvement. She reports that she is slept most of the day today which is also typical for COPD exacerbations. She is never required intubation for breathing. - Related Data Allergies Allergy/AdvReac Type Severity Reaction Status Date / Time cephalexin [From Keflex] Allergy Hives Verified 12/03/20 20:24 diclofenac Allergy Rash Verified 12/03/20 20:24 oxycodone [From Percocet] Allergy Rash Verified 12/03/20 20:24 Home Meds: Home Meds Albuterol Sulfate 2.5 mg NEB Q4H PRN 12/05/19 [History] Aspirin 81 mg PO DAILY 12/05/19 [History] Cholecalciferol (Vitamin D3) [Vitamin D3] 50 mcg PO DAILY 12/05/19 [History] Multivitamin [Multi-Vitamin Daily] 1 tab PO DAILY 12/05/19 [History] lisinopriL [Lisinopril] 10 mg PO DAILY 12/05/19 [History] Albuterol [Ventolin HFA] 1 dose INH Q4H PRN 08/06/20 [History] Fluconazole [Diflucan] 150 mg PO DAILY 08/06/20 [History] Fluticasone/Umeclidin/Vilanter [Trelegy Ellipta 100-62.5-25 MCG] 1 puff INH DAILY 08/06/20 [History] Furosemide [Lasix] 40 mg PO DAILY 08/06/20 [History] Past Medical History HEENT 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: Other (See Below) Other HEENT History: sinus issues Cardiovascular 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: High Cholesterol, Hypertension Respiratory 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: Bronchitis, Recurrent, COPD, Other (See Below) Gastrointestinal 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: None Genitourinary 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: None 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 SPOUTER 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: Musculoskeletal 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: Back Pain, Chronic Neurological 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: None Psychiatric 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: None Endocrine/Metabolic 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: Obesity/BMI 30+ Hematologic 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: None Immunologic 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: None Oncologic (Cancer) 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: None Dermatologic 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: None - Infectious Disease History Infectious Disease 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: Chicken Pox - Past Surgical History HEENT Surgical 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: Tonsillectomy GI Surgical 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: Cholecystectomy Female Surgical 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: Tubal Ligation Musculoskeletal Surgical 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: Other (See Below) Other Musculoskeletal Surgeries/Procedures:: Left arm surgery Social & Family History - Family History Family Medical History: No Pertinent Family History - Caffeine Use Caffeine Use: Reports: Coffee Caffeine Use Comment: seldom drinks energy drinks - Living Situation & Occupation Occupation: Employed ED ROS GENERAL - Review of Systems Review Of Systems: See Below Free Text/Narrative/Comment: General: No fever. Eyes: No vision problems. ENT: No sore throat. Neck: No neck stiffness. Respiratory: Per HPI Cardiac: No chest pain. Gastrointestinal: No nausea, vomiting or abdominal pain. Musculoskeletal: No myalgias/arthralgias. Neurologic: No headache. ED EXAM, GENERAL - Physical Exam Exam: See Below Free Text/Narrative:: General Appearance: No acute distress, appears comfortable Skin: No rash HEENT: Normocephalic/atraumatic, sclera anicteric, mucous membranes moist Neck: Normal range of motion Chest and Lungs: Soft biphasic wheezing with prolonged expiratory phase moderate air movement but normal work of breathing Cardiovascular: Regular rate and rhythm, no murmur Abdomen: Soft, non-tender Back: Normal Musculoskeletal: No edema or tenderness Neurologic: Awake, alert, no obvious deficits, moving all extremities Psychiatric: Appropriate, cooperative #1 Interpretation EKG Date: 12/03/20 Time: 20:28 EKG Interpretation Comments: sinus tachycardia rate of 106, significant baseline wander, no acute ischemia normal intervals Course - Vital Signs Last Recorded V/S: Last Vital Signs Temp 98.2 F 12/03/20 20:19 Pulse 98 12/03/20 21:25 Resp 20 12/03/20 21:25 BP 113/76 12/03/20 21:25 Pulse Ox 97 12/03/20 21:25 - Orders/Labs/Meds Orders: Active Orders 24 hr Category Date Time Status EKG 12 Lead [EKG Documentation Completion] [RC] STAT Care 12/03/20 20:52 Active RT Aerosol Therapy [RC] ASDIRECTED Care 12/03/20 20:47 Active RT Aerosol Therapy [RC] ASDIRECTED Care 12/03/20 23:07 Ordered CBC WITH AUTO DIFF [HEME] Stat Lab 12/03/20 20:30 Received COVID-19/FLU A+B [MOLEC] Stat Lab 12/03/20 20:57 Ordered Albuterol/Ipratropium [DuoNeb 3.0-0.5 MG/3 ML] Med 12/03/20 23:07 Once 3 ml NEB ONETIME ONE Sodium Chloride 0.9% [Saline Flush] Med 12/03/20 20:45 Active 10 ml FLUSH ASDIRECTED PRN Sodium Chloride 0.9% [Saline Flush] Med 12/03/20 20:45 Active 2.5 ml FLUSH ASDIRECTED PRN Saline Lock Insert [OM.PC] Stat Oth 12/03/20 20:45 Ordered Medication Orders Sodium Chloride (Sodium Chloride 0.9% 10 Ml Syringe) 10 ml FLUSH ASDIRECTED PRN PRN Reason: Keep Vein Open Sodium Chloride (Sodium Chloride 0.9% 2.5 Ml Syringe) 2.5 ml FLUSH ASDIRECTED PRN PRN Reason: Keep Vein Open Labs: Laboratory Tests 12/03/20 12/03/20 12/03/20 Range/Units 20:30 20:30 20:54 D-Dimer, Quantitative 0.52 H (0.0-0.50) mg/L FEU VBG pH (7.31-7.41) VBG pCO2 (41-51) mmHG VBG pO2 mmHG VBG HCO3 (23-28) mEq/L VBG Total CO2 (24-29) mmol/L VBG Base Excess (-2.0-3.0) Sodium 142 (136-145) mmol/L Potassium 4.2 (3.5-5.1) mmol/L Chloride 98 (98-107) mmol/L Carbon Dioxide 43.3 H (21.0-32.0) mmol/L BUN 10 (7.0-18.0) mg/dL Creatinine 0.7 (0.6-1.0) mg/dL Est Cr Clr Drug Dosing 87.01 mL/min Estimated GFR (MDRD) > 60.0 ml/min Glucose 135 H (74-106) mg/dL Calcium 8.8 (8.5-10.1) mg/dL Total Bilirubin 0.2 (0.2-1.0) mg/dL AST 16 (15-37) IU/L ALT 22 (14-63) IU/L Alkaline Phosphatase 98 (46-116) U/L Troponin I <0.050 (0.000-0.056) ng/mL B-Natriuretic Peptide 18 (<100) PG/ML Total Protein 6.5 (6.4-8.2) g/dL Albumin 2.8 L (3.4-5.0) g/dL Globulin 3.7 (2.6-4.0) g/dL Albumin/Globulin Ratio 0.8 L (0.9-1.6) 12/03/20 Range/Units 20:54 D-Dimer, Quantitative (0.0-0.50) mg/L FEU VBG pH 7.36 (7.31-7.41) VBG pCO2 92 H (41-51) mmHG VBG pO2 62 mmHG VBG HCO3 52 H (23-28) mEq/L VBG Total CO2 46 H (24-29) mmol/L VBG Base Excess 20.3 H (-2.0-3.0) Sodium (136-145) mmol/L Potassium (3.5-5.1) mmol/L Chloride (98-107) mmol/L Carbon Dioxide (21.0-32.0) mmol/L BUN (7.0-18.0) mg/dL Creatinine (0.6-1.0) mg/dL Est Cr Clr Drug Dosing mL/min Estimated GFR (MDRD) ml/min Glucose (74-106) mg/dL Calcium (8.5-10.1) mg/dL Total Bilirubin (0.2-1.0) mg/dL AST (15-37) IU/L ALT (14-63) IU/L Alkaline Phosphatase (46-116) U/L Troponin I (0.000-0.056) ng/mL B-Natriuretic Peptide (<100) PG/ML Total Protein (6.4-8.2) g/dL Albumin (3.4-5.0) g/dL Globulin (2.6-4.0) g/dL Albumin/Globulin Ratio (0.9-1.6) Meds: Medications Generic Name Dose Route Start Last Admin Trade Name Jeanna PRN Reason Stop Dose Admin Sodium Chloride 10 ml 12/03/20 20:45 Sodium Chloride 0.9% 10 Ml Syringe FLUSH ASDIRECTED PRN Keep Vein Open Sodium Chloride 2.5 ml 12/03/20 20:45 Sodium Chloride 0.9% 2.5 Ml Syringe FLUSH ASDIRECTED PRN Keep Vein Open Discontinued Medications Generic Name Dose Route Start Last Admin Trade Name Jeanna PRN Reason Stop Dose Admin Albuterol/Ipratropium 3 ml 12/03/20 20:47 12/03/20 21:23 Albuterol/Ipratropium 3.0-0.5 Mg/3 Ml Neb Soln NEB 12/03/20 20:48 3 ml ONETIME ONE Administration Iopamidol 100 ml 12/03/20 22:13 12/03/20 22:14 Iopamidol 755 Mg/Ml 500 Ml Multipack Bottle IVPUSH 12/03/20 22:14 100 ml ONETIME STA Administration Methylprednisolone Sodium Succinate 125 mg 12/03/20 20:47 12/03/20 21:23 Methylprednisolone Sodium Succinate 125 Mg/2 Ml Sdv IVPUSH 12/03/20 20:48 125 mg ONETIME ONE Administration Departure - Departure Time of Disposition: 23:10 Disposition: Admitted As Inpatient 68 Clinical Impression: Respiratory failure with hypoxia and hypercapnia, COPD exacerbation - Discharge Information Referrals: Hernesto Gong MD [Primary Care Provider] - Forms: ED Department Discharge Sepsis Event Note (ED) - Evaluation Sepsis Screening Result: No Definite Risk - Focused Exam Vital Signs: Vital Signs Temp Pulse Resp BP Pulse Ox Pulse Ox 12/03/20 21:25 98 20 113/76 97 12/03/20 20:31 94 L 12/03/20 20:19 98.2 F 116 H 28 H 133/76 76 L - My Orders Last 24 Hours: My Active Orders 12/03/20 20:30 CBC WITH AUTO DIFF [HEME] Stat 12/03/20 20:45 Sodium Chloride 0.9% [Saline Flush] 10 ml FLUSH ASDIRECTED PRN Sodium Chloride 0.9% [Saline Flush] 2.5 ml FLUSH ASDIRECTED PRN Saline Lock Insert [OM.PC] Stat 12/03/20 20:47 RT Aerosol Therapy [RC] ASDIRECTED 12/03/20 20:52 EKG 12 Lead [EKG Documentation Completion] [RC] STAT 12/03/20 20:57 COVID-19/FLU A+B [MOLEC] Stat 12/03/20 23:07 RT Aerosol Therapy [RC] ASDIRECTED Albuterol/Ipratropium [DuoNeb 3.0-0.5 MG/3 ML] 3 ml NEB ONETIME ONE - Assessment/Plan Last 24 Hours: My Active Orders 12/03/20 20:30 CBC WITH AUTO DIFF [HEME] Stat 12/03/20 20:45 Sodium Chloride 0.9% [Saline Flush] 10 ml FLUSH ASDIRECTED PRN Sodium Chloride 0.9% [Saline Flush] 2.5 ml FLUSH ASDIRECTED PRN Saline Lock Insert [OM.PC] Stat 12/03/20 20:47 RT Aerosol Therapy [RC] ASDIRECTED 12/03/20 20:52 EKG 12 Lead [EKG Documentation Completion] [RC] STAT 12/03/20 20:57 COVID-19/FLU A+B [[facility]] Stat 12/03/20 23:07 RT Aerosol Therapy [RC] ASDIRECTED Albuterol/Ipratropium [DuoNeb 3.0-0.5 MG/3 ML] 3 ml NEB ONETIME ONE Assessment:: 55-year-old female presenting with signs and symptoms that are most consistent with COPD exacerbation and steroids and breathing treatments been ordered. ACS considered felt less likely but EKG and troponin pending. CHF likewise felt less likely but BNP added. Pneumonia considered as well also less likely but chest x-ray pending. VBG as well to assess for any CO2 retention given her increased fatigue over the course of the day today. Given the patient's complexity the severity of her illness I think need for admission is likely but we will reassess after treatment. PE also felt less likely but D-dimer pending. 2114: VBG with elevated CO2 to 92. However, pH only 7.36 so a compensated respiratory acidosis likely not far from her baseline. Will con't to monitor. Does not need BiPaP at this time, no mental status changes. D-Dimer mildly elevated and CTPA added, CXR is normal. 2306: CTPA is negative for PE and pneumonia. Patient has an O2 saturation in the low 90s on 6 L nasal cannula. We will give an additional DuoNeb treatment and admit for further care. Patient discussed in full with Dr. Yun.
[2020-12-03] MEDS ORDERED: Sodium Chloride 0.9% 10 ML Syringe FLUSH PRN (20:45)
[2020-12-03] MEDS ORDERED: Sodium Chloride 0.9% 2.5 ML Syringe FLUSH PRN (20:45)
[2020-12-03] MEDS ORDERED: methylPREDNISolone Sodium Succinate 125 MG/2 ML SDV IVPUSH ONE (20:47)
[2020-12-03] MEDS ORDERED: Albuterol/Ipratropium 3.0-0.5 MG/3 ML Neb Soln NEB ONE ×2 (20:47→23:07)
[2020-12-03 21:26] LABS: CHLORIDE,CL 98 mmol/L (98-107); POTASSIUM,K 4.2 mmol/L (3.5-5.1); SODIUM,NA 142 mmol/L (136-145)
[2020-12-03 21:27] LABS: BLOOD UREA NITROGEN,BUN 10 mg/dL (7.0-18.0); CARBON DIOXIDE,CO2 43.3 mmol/L (21.0-32.0); GLUCOSE RANDOM 135 mg/dL (74-106)
--- NOTE | 2020-12-03 22:06 | CR ---
INDICATION: Shortness of breath TECHNIQUE: Portable upright AP view of the chest COMPARISON: AP chest radiograph 08/06/2020 FINDINGS: The lungs are clear. There is no sizable pleural effusion or pneumothorax. The cardiomediastinal silhouette is normal. The visualized osseous structures are unremarkable. IMPRESSION: No acute intrathoracic process. Dictated by Yessi Parisi MD @ 12/03/2020 10:04:[address] Yessi Parisi @ Dec 03 2020 10:04PM
[2020-12-03] MEDS ORDERED: Iopamidol 755 MG/ML 500 ML Multipack Bottle IVPUSH STA (22:13)
--- NOTE | 2020-12-03 23:01 | CT ---
INDICATION: Hypoxia with shortness of breath. Positive D-dimer. COMPARISON: [address] TECHNIQUE: 100 mL Isovue-370 IV contrast. FINDINGS: Adequate bolus timing. No pulmonary embolism filling defects. Smaller active right hilar lymph nodes and tiny left hilar lymph nodes. Small pericardial effusion. Emphysematous changes lung parenchyma. Patchy and linear atelectasis in the right greater than left lung bases. No pneumothorax. IMPRESSION: No pulmonary embolism. Chronic emphysema. Bibasilar atelectasis. Small reactive hilar lymph nodes. Please note that all CT scans at this facility use dose modulation, iterative reconstruction, and/or weight-based dosing when appropriate to reduce radiation dose to as low as reasonably achievable. Dictated by Peter Dickson MD @ 12/03/2020 11:00:[address] Peter Dickson @ Dec 03 2020 11:00PM
[2020-12-04 00:12] LABS: CORONAVIRUS COVID-19 NAA NEGATIVE (NEGATIVE); INFLUENZA A NAA NEGATIVE (NEGATIVE); INFLUENZA B NAA NEGATIVE (NEGATIVE)
[2020-12-04] MEDS ORDERED: Albuterol 0.083% 2.5 MG/3 ML Neb Soln NEB PRN (01:25)
--- NOTE | 2020-12-04 01:28 | PCM.HP.2 ---
H&P History of Present Illness - General Date of Service: 12/04/20 Admit Problem/Dx: Admission Diagnosis/Problem Admission Diagnosis/Problem Respiratory failure with hypoxia and hypercapnia - History of Present Illness Initial Comments - Free Text/Narative: 55 yo female with pmh of severe COPD who uses 3-4 L of Oxygen via NC at home how presented to the ED with complaints of worsening shortness of breath and pr oductive cough. Patient denies any fevers or chest pain. Patient was noted to be satting 87% on [address] chest was negative for PE. She was given solumedrol and duonebs with improvement in her dyspnea. - Related Data Allergies/Adverse Reactions: Allergies Allergy/AdvReac Type Severity Reaction Status Date / Time cephalexin [From Keflex] Allergy Hives Verified 12/04/20 07:57 diclofenac Allergy Rash Verified 12/04/20 07:57 oxycodone [From Percocet] Allergy Rash Verified 12/04/20 07:57 Home Medications: Home Meds Albuterol Sulfate 2.5 mg NEB Q4H PRN 12/05/19 [History] Cholecalciferol (Vitamin D3) [Vitamin D3] 25 mcg PO DAILY 12/05/19 [History] Multivitamin [Multi-Vitamin Daily] 1 tab PO DAILY 12/05/19 [History] lisinopriL [Lisinopril] 10 mg PO DAILY 12/05/19 [History] Albuterol [Ventolin HFA] 2 inh INH Q4H PRN 08/06/20 [History] Fluticasone/Umeclidin/Vilanter [Trelegy Ellipta 100-62.5-25 MCG] 1 puff INH DAILY 08/06/20 [History] Furosemide [Lasix] 40 mg PO DAILY 08/06/20 [History] Aspirin [Halfprin] 81 mg PO DAILY 12/04/20 [History] Melatonin 5 mg PO BEDTIME 12/04/20 [History] Nicotine [Nicotine Patch] 21 mg TD DAILY 12/04/20 [History] Past Medical History HEENT 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: Other (See Below) Other HEENT History: sinus issues Cardiovascular 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: High Cholesterol, Hypertension Respiratory 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: Bronchitis, Recurrent, COPD, Other (See Below) Gastrointestinal 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: None Genitourinary 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: None [employer] 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: Musculoskeletal 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: Back Pain, Chronic Neurological 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: None Psychiatric 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: None Endocrine/Metabolic 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: Obesity/BMI 30+ Hematologic 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: None Immunologic 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: None Oncologic (Cancer) 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: None Dermatologic 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: None - Infectious Disease History Infectious Disease 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: Chicken Pox - Past Surgical History HEENT Surgical 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: Tonsillectomy GI Surgical 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: Cholecystectomy Female Surgical 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: Tubal Ligation Musculoskeletal Surgical 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: Other (See Below) Other Musculoskeletal Surgeries/Procedures:: Left arm surgery Social & Family History - Family History Family Medical History: No Pertinent Family History - Tobacco Use Tobacco Use Status *Q: Former Tobacco User Used Tobacco, but Quit: Yes Month/Year Tobacco Last Used: 5 days - Caffeine Use Caffeine Use: Reports: None Caffeine Use Comment: seldom drinks energy drinks - Recreational Drug Use Recreational Drug Use: No - Living Situation & Occupation Occupation: Employed H&P Review of Systems - Review of Systems: Review Of Systems: Comprehensive ROS is negative, except as noted in HPI. Exam - Exam Exam: See Below - Vital Signs Vital Signs: Last Vital Signs Temp 36.8 C 12/03/20 20:19 Pulse 98 12/03/20 21:25 Resp 20 12/03/20 21:25 BP 113/76 12/03/20 21:25 Pulse Ox 97 12/03/20 21:25 Weight: 97.522 kg - Exam General: Alert, Oriented HEENT: Mucosa Moist & [place] Lungs: Normal Respiratory Effort, Decreased Breath Sounds Cardiovascular: Regular Rate, Regular Rhythm GI/Abdominal Exam: Normal Bowel Sounds, Soft, Non-Tender Extremities: Non-Tender, No Pedal Edema Skin: Warm, Dry, Intact Neurological: Cranial Nerves Intact. No: Focal Deficit Psychiatric: Alert, Normal Affect - Patient Data Lab Results Last 24 hrs: Laboratory Results - last 24 hr 12/03/20 12/03/20 12/03/20 Range/Units 20:30 20:30 20:30 WBC 6.79 (4.0-11.0) K/uL RBC 4.89 (4.30-5.90) M/uL Hgb 15.1 (12.0-16.0) g/dL Hct 50.4 H (36.0-46.0) % MCV 103.1 H (80.0-98.0) fL MCH 30.9 (27.0-32.0) pg MCHC 30.0 L (31.0-37.0) g/dL RDW Std Deviation 52.6 (28.0-62.0) fl RDW Coeff of Vera 14 (11.0-15.0) % Plt Count 208 (150-400) K/uL MPV 10.40 (7.40-12.00) fL Neut % (Auto) 73.5 (48.0-80.0) % Lymph % (Auto) 16.2 (16.0-40.0) % [place] % (Auto) 8.4 (0.0-15.0) % Eos % (Auto) 1.6 (0.0-7.0) % Baso % (Auto) 0.3 (0.0-1.5) % Neut # (Auto) 5.0 (1.4-5.7) K/uL Lymph # (Auto) 1.1 (0.6-2.4) K/uL [place] # (Auto) 0.6 (0.0-0.8) K/uL Eos # (Auto) 0.1 (0.0-0.7) K/uL Baso # (Auto) 0.0 (0.0-0.1) K/uL Nucleated RBC % 0.0 /100WBC Nucleated RBCs # 0 K/uL D-Dimer, Quantitative (0.0-0.50) mg/L FEU VBG pH (7.31-7.41) VBG pCO2 (41-51) mmHG VBG pO2 mmHG VBG HCO3 (23-28) mEq/L VBG Total CO2 (24-29) mmol/L VBG Base Excess (-2.0-3.0) Sodium 142 (136-145) mmol/L Potassium 4.2 (3.5-5.1) mmol/L Chloride 98 (98-107) mmol/L Carbon Dioxide 43.3 H (21.0-32.0) mmol/L BUN 10 (7.0-18.0) mg/dL Creatinine 0.7 (0.6-1.0) mg/dL Est Cr Clr Drug Dosing 87.01 mL/min Estimated GFR (MDRD) > 60.0 ml/min Glucose 135 H (74-106) mg/dL Calcium 8.8 (8.5-10.1) mg/dL Total Bilirubin 0.2 (0.2-1.0) mg/dL AST 16 (15-37) IU/L ALT 22 (14-63) IU/L Alkaline Phosphatase 98 (46-116) U/L Troponin I <0.050 (0.000-0.056) ng/mL B-Natriuretic Peptide 18 (<100) PG/ML Total Protein 6.5 (6.4-8.2) g/dL Albumin 2.8 L (3.4-5.0) g/dL Globulin 3.7 (2.6-4.0) g/dL Albumin/Globulin Ratio 0.8 L (0.9-1.6) Influenza Type A RNA (NEGATIVE) Influenza Type B RNA (NEGATIVE) SARS-CoV-2 RNA (RUBIN) (NEGATIVE) 12/03/20 12/03/20 12/03/20 Range/Units 20:54 20:54 23:36 WBC (4.0-11.0) K/uL RBC (4.30-5.90) M/uL Hgb (12.0-16.0) g/dL Hct (36.0-46.0) % MCV (80.0-98.0) fL MCH (27.0-32.0) pg MCHC (31.0-37.0) g/dL RDW Std Deviation (28.0-62.0) fl RDW Coeff of Vera (11.0-15.0) % Plt Count (150-400) K/uL MPV (7.40-12.00) fL Neut % (Auto) (48.0-80.0) % Lymph % (Auto) (16.0-40.0) % [place] % (Auto) (0.0-15.0) % Eos % (Auto) (0.0-7.0) % Baso % (Auto) (0.0-1.5) % Neut # (Auto) (1.4-5.7) K/uL Lymph # (Auto) (0.6-2.4) K/uL [place] # (Auto) (0.0-0.8) K/uL Eos # (Auto) (0.0-0.7) K/uL Baso # (Auto) (0.0-0.1) K/uL Nucleated RBC % /100WBC Nucleated RBCs # K/uL D-Dimer, Quantitative 0.52 H (0.0-0.50) mg/L FEU VBG pH 7.36 (7.31-7.41) VBG pCO2 92 H (41-51) mmHG VBG pO2 62 mmHG VBG HCO3 52 H (23-28) mEq/L VBG Total CO2 46 H (24-29) mmol/L VBG Base Excess 20.3 H (-2.0-3.0) Sodium (136-145) mmol/L Potassium (3.5-5.1) mmol/L Chloride (98-107) mmol/L Carbon Dioxide (21.0-32.0) mmol/L BUN (7.0-18.0) mg/dL Creatinine (0.6-1.0) mg/dL Est Cr Clr Drug Dosing mL/min Estimated GFR (MDRD) ml/min Glucose (74-106) mg/dL Calcium (8.5-10.1) mg/dL Total Bilirubin (0.2-1.0) mg/dL AST (15-37) IU/L ALT (14-63) IU/L Alkaline Phosphatase (46-116) U/L Troponin I (0.000-0.056) ng/mL B-Natriuretic Peptide (<100) PG/ML Total Protein (6.4-8.2) g/dL Albumin (3.4-5.0) g/dL Globulin (2.6-4.0) g/dL Albumin/Globulin Ratio (0.9-1.6) Influenza Type A RNA NEGATIVE (NEGATIVE) Influenza Type B RNA NEGATIVE (NEGATIVE) SARS-CoV-2 RNA (RUBIN) NEGATIVE (NEGATIVE) Result Diagrams: 12/04/20 05:20 12/04/20 05:03 Sepsis Event Note - Evaluation Sepsis Screening Result: No Definite Risk - Focused Exam Vital Signs: Vital Signs Temp Pulse Resp BP Pulse Ox Pulse Ox 12/03/20 21:25 98 20 113/76 97 12/03/20 20:31 94 L 12/03/20 20:19 36.8 C 116 H 28 H 133/76 76 L Problem List Initiated/Reviewed/Updated: Yes Orders Last 24hrs: Active Orders 24 hr Category Date Time Status Patient Status [ADT] Routine ADT 12/03/20 23:10 Active Antiembolic Devices [RC] PER UNIT ROUTINE Care 12/04/20 01:25 Ordered EKG 12 Lead [EKG Documentation Completion] [RC] STAT Care 12/03/20 20:52 Active Oxygen Therapy [RC] PRN Care 12/04/20 01:24 Ordered RT Aerosol Therapy [RC] ASDIRECTED Care 12/03/20 20:47 Active RT Aerosol Therapy [RC] ASDIRECTED Care 12/03/20 23:07 Active RT Aerosol Therapy [RC] ASDIRECTED Care 12/04/20 01:25 Ordered RT Aerosol Therapy [RC] ASDIRECTED Care 12/04/20 01:26 Ordered Up ad Nataliya [RC] ASDIRECTED Care 12/04/20 01:24 Ordered VTE/DVT Education [RC] PER UNIT ROUTINE Care 12/04/20 01:24 Ordered Vital Signs [RC] Q4H Care 12/04/20 01:24 Ordered Regular Diet [DIET] Diet 12/04/20 Breakfast Ordered BASIC METABOLIC PANEL,BMP [CHEM] AM Lab 12/04/20 05:11 Ordered CBC W/O DIFF,HEMOGRAM [HEME] AM Lab 12/04/20 05:11 Ordered Albuterol [Proventil Neb Soln] Med 12/04/20 01:25 Ordered 2.5 mg NEB Q4H PRN Albuterol/Ipratropium [DuoNeb 3.0-0.5 MG/3 ML] Med 12/04/20 06:00 Ordered 3 ml NEB Q6HRRT Aspirin Med 12/04/20 09:00 Ordered 81 mg PO DAILY Enoxaparin [Lovenox] Med 12/04/20 01:30 Ordered 40 mg SUBCUT Q24H Furosemide [Lasix] Med 12/04/20 09:00 Ordered 40 mg PO DAILY Sodium Chloride 0.9% [Saline Flush] Med 12/03/20 20:45 Active 10 ml FLUSH ASDIRECTED PRN Sodium Chloride 0.9% [Saline Flush] Med 12/03/20 20:45 Active 2.5 ml FLUSH ASDIRECTED PRN lisinopriL [Prinivil] Med 12/04/20 09:00 Ordered 10 mg PO DAILY methylPREDNISolone Sod Succ [Solu-MEDROL] Med 12/04/20 09:00 Ordered 60 mg IVPUSH DAILY Saline Lock Insert [OM.PC] Stat Oth 12/03/20 20:45 Ordered Sequential Compression Device [OM.PC] Per Unit Routine Oth 12/04/20 01:24 Ordered Resuscitation Status Routine Resus Stat 12/04/20 01:24 Ordered Medication Orders Albuterol (Albuterol 0.083% 2.5 Mg/3 Ml Neb Soln) 2.5 mg NEB Q4H PRN PRN Reason: Shortness of Breath Albuterol/Ipratropium (Albuterol/Ipratropium 3.0-0.5 Mg/3 Ml Neb Soln) 3 ml NEB Q6HRRT KOLE Aspirin (Aspirin 81 Mg Tab.Chew) 81 mg PO DAILY KOLE Enoxaparin Sodium (Enoxaparin 40 Mg/0.4 Ml Syringe) 40 mg SUBCUT Q24H KOLE Furosemide (Furosemide 40 Mg Tab) 40 mg PO DAILY KOLE Lisinopril (Lisinopril 10 Mg Tab) 10 mg PO DAILY KOLE Methylprednisolone Sodium Succinate (Methylprednisolone Sodium Succinate 40 Mg/1 Ml Sdv) 60 mg IVPUSH DAILY KOLE Sodium Chloride (Sodium Chloride 0.9% 10 Ml Syringe) 10 ml FLUSH ASDIRECTED PRN PRN Reason: Keep Vein Open Sodium Chloride (Sodium Chloride 0.9% 2.5 Ml Syringe) 2.5 ml FLUSH ASDIRECTED PRN PRN Reason: Keep Vein Open Assessment/Plan Comment:: 55 yo female admitted with COPD exacerbation with acute on chronic hypoxic /hypercapnic respiratory failure. We will continue supplemental oxygen via NC, duoneb therapy and daily IV solumedrol.
[2020-12-04] MEDS: Enoxaparin 40 MG/0.4 ML Syringe SUBCUT SCH (02:25)
[2020-12-04] MEDS: Albuterol/Ipratropium 3.0-0.5 MG/3 ML Neb Soln NEB SCH ×3 (05:50→17:39)
[2020-12-04 06:52] LABS: BLOOD UREA NITROGEN,BUN 11 mg/dL (7.0-18.0); CARBON DIOXIDE,CO2 42.5 mmol/L (21.0-32.0); CHLORIDE,CL 98 mmol/L (98-107); GLUCOSE RANDOM 178 mg/dL (74-106); POTASSIUM,K 4.6 mmol/L (3.5-5.1); SODIUM,NA 142 mmol/L (136-145)
[2020-12-04] MEDS ORDERED: Aspirin 81 MG Tab.Chew PO SCH (09:00)
[2020-12-04] MEDS ORDERED: Furosemide 40 MG Tab PO SCH (09:00)
[2020-12-04] MEDS ORDERED: Lisinopril 10 MG Tab PO SCH (09:00)
[2020-12-04] MEDS: methylPREDNISolone Sodium Succinate 40 MG/1 ML SDV IVPUSH SCH (09:45)
--- NOTE | 2020-12-04 11:50 | PCM.PN ---
- General Info Date of Service: 12/04/20 - Review of Systems Systems Review Comment:: breathing has improved, short of breath with walking - Patient Data Vitals - Most Recent: Last Vital Signs Temp 36.5 C 12/04/20 11:40 Pulse 93 12/04/20 11:40 Resp 17 12/04/20 11:40 BP 131/74 12/04/20 11:40 Pulse Ox 88 L 12/04/20 11:40 Weight - Most Recent: 104.644 kg I&O - Last 24 Hours: Intake & Output 12/03/20 12/04/20 12/04/20 22:59 06:59 14:59 Intake Total 240 Output Total 125 Balance 115 Lab Results Last 24 Hours: Laboratory Results - last 24 hr 12/03/20 12/03/20 12/03/20 Range/Units 20:30 20:30 20:30 WBC 6.79 (4.0-11.0) K/uL RBC 4.89 (4.30-5.90) M/uL Hgb 15.1 (12.0-16.0) g/dL Hct 50.4 H (36.0-46.0) % MCV 103.1 H (80.0-98.0) fL MCH 30.9 (27.0-32.0) pg MCHC 30.0 L (31.0-37.0) g/dL RDW Std Deviation 52.6 (28.0-62.0) fl RDW Coeff of Vera 14 (11.0-15.0) % Plt Count 208 (150-400) K/uL MPV 10.40 (7.40-12.00) fL Neut % (Auto) 73.5 (48.0-80.0) % Lymph % (Auto) 16.2 (16.0-40.0) % [place] % (Auto) 8.4 (0.0-15.0) % Eos % (Auto) 1.6 (0.0-7.0) % Baso % (Auto) 0.3 (0.0-1.5) % Neut # (Auto) 5.0 (1.4-5.7) K/uL Lymph # (Auto) 1.1 (0.6-2.4) K/uL [place] # (Auto) 0.6 (0.0-0.8) K/uL Eos # (Auto) 0.1 (0.0-0.7) K/uL Baso # (Auto) 0.0 (0.0-0.1) K/uL Nucleated RBC % 0.0 /100WBC Nucleated RBCs # 0 K/uL D-Dimer, Quantitative (0.0-0.50) mg/L FEU VBG pH (7.31-7.41) VBG pCO2 (41-51) mmHG VBG pO2 mmHG VBG HCO3 (23-28) mEq/L VBG Total CO2 (24-29) mmol/L VBG Base Excess (-2.0-3.0) Sodium 142 (136-145) mmol/L Potassium 4.2 (3.5-5.1) mmol/L Chloride 98 (98-107) mmol/L Carbon Dioxide 43.3 H (21.0-32.0) mmol/L BUN 10 (7.0-18.0) mg/dL Creatinine 0.7 (0.6-1.0) mg/dL Est Cr Clr Drug Dosing 87.01 mL/min Estimated GFR (MDRD) > 60.0 ml/min Glucose 135 H (74-106) mg/dL Calcium 8.8 (8.5-10.1) mg/dL Total Bilirubin 0.2 (0.2-1.0) mg/dL AST 16 (15-37) IU/L ALT 22 (14-63) IU/L Alkaline Phosphatase 98 (46-116) U/L Troponin I <0.050 (0.000-0.056) ng/mL B-Natriuretic Peptide 18 (<100) PG/ML Total Protein 6.5 (6.4-8.2) g/dL Albumin 2.8 L (3.4-5.0) g/dL Globulin 3.7 (2.6-4.0) g/dL Albumin/Globulin Ratio 0.8 L (0.9-1.6) Influenza Type A RNA (NEGATIVE) Influenza Type B RNA (NEGATIVE) SARS-CoV-2 RNA (RUBIN) (NEGATIVE) 12/03/20 12/03/20 12/03/20 Range/Units 20:54 20:54 23:36 WBC (4.0-11.0) K/uL RBC (4.30-5.90) M/uL Hgb (12.0-16.0) g/dL Hct (36.0-46.0) % MCV (80.0-98.0) fL MCH (27.0-32.0) pg MCHC (31.0-37.0) g/dL RDW Std Deviation (28.0-62.0) fl RDW Coeff of Vera (11.0-15.0) % Plt Count (150-400) K/uL MPV (7.40-12.00) fL Neut % (Auto) (48.0-80.0) % Lymph % (Auto) (16.0-40.0) % [place] % (Auto) (0.0-15.0) % Eos % (Auto) (0.0-7.0) % Baso % (Auto) (0.0-1.5) % Neut # (Auto) (1.4-5.7) K/uL Lymph # (Auto) (0.6-2.4) K/uL [place] # (Auto) (0.0-0.8) K/uL Eos # (Auto) (0.0-0.7) K/uL Baso # (Auto) (0.0-0.1) K/uL Nucleated RBC % /100WBC Nucleated RBCs # K/uL D-Dimer, Quantitative 0.52 H (0.0-0.50) mg/L FEU VBG pH 7.36 (7.31-7.41) VBG pCO2 92 H (41-51) mmHG VBG pO2 62 mmHG VBG HCO3 52 H (23-28) mEq/L VBG Total CO2 46 H (24-29) mmol/L VBG Base Excess 20.3 H (-2.0-3.0) Sodium (136-145) mmol/L Potassium (3.5-5.1) mmol/L Chloride (98-107) mmol/L Carbon Dioxide (21.0-32.0) mmol/L BUN (7.0-18.0) mg/dL Creatinine (0.6-1.0) mg/dL Est Cr Clr Drug Dosing mL/min Estimated GFR (MDRD) ml/min Glucose (74-106) mg/dL Calcium (8.5-10.1) mg/dL Total Bilirubin (0.2-1.0) mg/dL AST (15-37) IU/L ALT (14-63) IU/L Alkaline Phosphatase (46-116) U/L Troponin I (0.000-0.056) ng/mL B-Natriuretic Peptide (<100) PG/ML Total Protein (6.4-8.2) g/dL Albumin (3.4-5.0) g/dL Globulin (2.6-4.0) g/dL Albumin/Globulin Ratio (0.9-1.6) Influenza Type A RNA NEGATIVE (NEGATIVE) Influenza Type B RNA NEGATIVE (NEGATIVE) SARS-CoV-2 RNA (RUBIN) NEGATIVE (NEGATIVE) 12/04/20 12/04/20 Range/Units 05:03 05:20 WBC 5.02 (4.0-11.0) K/uL RBC 4.75 (4.30-5.90) M/uL Hgb 14.9 (12.0-16.0) g/dL Hct 48.7 H (36.0-46.0) % MCV 102.5 H (80.0-98.0) fL MCH 31.4 (27.0-32.0) pg MCHC 30.6 L (31.0-37.0) g/dL RDW Std Deviation 52.0 (28.0-62.0) fl RDW Coeff of Vera 14 (11.0-15.0) % Plt Count 207 (150-400) K/uL MPV 11.50 (7.40-12.00) fL Neut % (Auto) (48.0-80.0) % Lymph % (Auto) (16.0-40.0) % [place] % (Auto) (0.0-15.0) % Eos % (Auto) (0.0-7.0) % Baso % (Auto) (0.0-1.5) % Neut # (Auto) (1.4-5.7) K/uL Lymph # (Auto) (0.6-2.4) K/uL [place] # (Auto) (0.0-0.8) K/uL Eos # (Auto) (0.0-0.7) K/uL Baso # (Auto) (0.0-0.1) K/uL Nucleated RBC % /100WBC Nucleated RBCs # K/uL D-Dimer, Quantitative (0.0-0.50) mg/L FEU VBG pH (7.31-7.41) VBG pCO2 (41-51) mmHG VBG pO2 mmHG VBG HCO3 (23-28) mEq/L VBG Total CO2 (24-29) mmol/L VBG Base Excess (-2.0-3.0) Sodium 142 (136-145) mmol/L Potassium 4.6 (3.5-5.1) mmol/L Chloride 98 (98-107) mmol/L Carbon Dioxide 42.5 H (21.0-32.0) mmol/L BUN 11 (7.0-18.0) mg/dL Creatinine 0.6 (0.6-1.0) mg/dL Est Cr Clr Drug Dosing 101.51 mL/min Estimated GFR (MDRD) > 60.0 ml/min Glucose 178 H (74-106) mg/dL Calcium 8.7 (8.5-10.1) mg/dL Total Bilirubin (0.2-1.0) mg/dL AST (15-37) IU/L ALT (14-63) IU/L Alkaline Phosphatase (46-116) U/L Troponin I (0.000-0.056) ng/mL B-Natriuretic Peptide (<100) PG/ML Total Protein (6.4-8.2) g/dL Albumin (3.4-5.0) g/dL Globulin (2.6-4.0) g/dL Albumin/Globulin Ratio (0.9-1.6) Influenza Type A RNA (NEGATIVE) Influenza Type B RNA (NEGATIVE) SARS-CoV-2 RNA (RUBIN) (NEGATIVE) Med Orders - Current: Current Medications Albuterol (Albuterol 0.083% 2.5 Mg/3 Ml Neb Soln) 2.5 mg NEB Q4H PRN PRN Reason: Shortness of Breath Albuterol/Ipratropium (Albuterol/Ipratropium 3.0-0.5 Mg/3 Ml Neb Soln) 3 ml NEB Q6HRRT [facility] Last Admin: 12/04/20 11:06 Dose: 3 ml Documented by: Aspirin (Aspirin 81 Mg Tab.Chew) 81 mg PO DAILY [facility] Last Admin: 12/04/20 10:08 Dose: 81 mg Documented by: Enoxaparin Sodium (Enoxaparin 40 Mg/0.4 Ml Syringe) 40 mg SUBCUT Q24H [facility] Last Admin: 12/04/20 02:25 Dose: Not Given Documented by: Furosemide (Furosemide 40 Mg Tab) 40 mg PO DAILY [facility] Last Admin: 12/04/20 10:05 Dose: 40 mg Documented by: Lisinopril (Lisinopril 10 Mg Tab) 10 mg PO DAILY [facility] Last Admin: 12/04/20 10:07 Dose: 10 mg Documented by: Methylprednisolone Sodium Succinate (Methylprednisolone Sodium Succinate 40 Mg/1 Ml Sdv) 60 mg IVPUSH DAILY [facility] Last Admin: 12/04/20 09:45 Dose: 60 mg Documented by: Sodium Chloride (Sodium Chloride 0.9% 10 Ml Syringe) 10 ml FLUSH ASDIRECTED PRN PRN Reason: Keep Vein Open Sodium Chloride (Sodium Chloride 0.9% 2.5 Ml Syringe) 2.5 ml FLUSH ASDIRECTED PRN PRN Reason: Keep Vein Open Discontinued Medications Albuterol/Ipratropium (Albuterol/Ipratropium 3.0-0.5 Mg/3 Ml Neb Soln) 3 ml NEB ONETIME ONE Stop: 12/03/20 20:48 Last Admin: 12/03/20 21:23 Dose: 3 ml Documented by: Albuterol/Ipratropium (Albuterol/Ipratropium 3.0-0.5 Mg/3 Ml Neb Soln) 3 ml NEB ONETIME ONE Stop: 12/03/20 23:08 Last Admin: 12/03/20 23:45 Dose: 3 ml Documented by: Iopamidol (Iopamidol 755 Mg/Ml 500 Ml Multipack Bottle) 100 ml IVPUSH ONETIME STA Stop: 12/03/20 22:14 Last Admin: 12/03/20 22:14 Dose: 100 ml Documented by: Methylprednisolone Sodium Succinate (Methylprednisolone Sodium Succinate 125 Mg/2 Ml Sdv) 125 mg IVPUSH ONETIME ONE Stop: 12/03/20 20:48 Last Admin: 12/03/20 21:23 Dose: 125 mg Documented by: - Exam General: Alert, Oriented Lungs: Normal Respiratory Effort, Decreased Breath Sounds Cardiovascular: Regular Rate, Regular Rhythm GI/Abdominal Exam: Soft, Non-Tender, No Distention Extremities: Non-Tender, No Pedal Edema Skin: Warm, Dry, Intact Neurological: No New Focal Deficit - Patient Data Lab Results Last 24 hrs: Laboratory Results - last 24 hr 12/03/20 12/03/20 12/03/20 Range/Units 20:30 20:30 20:30 WBC 6.79 (4.0-11.0) K/uL RBC 4.89 (4.30-5.90) M/uL Hgb 15.1 (12.0-16.0) g/dL Hct 50.4 H (36.0-46.0) % MCV 103.1 H (80.0-98.0) fL MCH 30.9 (27.0-32.0) pg MCHC 30.0 L (31.0-37.0) g/dL RDW Std Deviation 52.6 (28.0-62.0) fl RDW Coeff of Vera 14 (11.0-15.0) % Plt Count 208 (150-400) K/uL MPV 10.40 (7.40-12.00) fL Neut % (Auto) 73.5 (48.0-80.0) % Lymph % (Auto) 16.2 (16.0-40.0) % [place] % (Auto) 8.4 (0.0-15.0) % Eos % (Auto) 1.6 (0.0-7.0) % Baso % (Auto) 0.3 (0.0-1.5) % Neut # (Auto) 5.0 (1.4-5.7) K/uL Lymph # (Auto) 1.1 (0.6-2.4) K/uL [place] # (Auto) 0.6 (0.0-0.8) K/uL Eos # (Auto) 0.1 (0.0-0.7) K/uL Baso # (Auto) 0.0 (0.0-0.1) K/uL Nucleated RBC % 0.0 /100WBC Nucleated RBCs # 0 K/uL D-Dimer, Quantitative (0.0-0.50) mg/L FEU VBG pH (7.31-7.41) VBG pCO2 (41-51) mmHG VBG pO2 mmHG VBG HCO3 (23-28) mEq/L VBG Total CO2 (24-29) mmol/L VBG Base Excess (-2.0-3.0) Sodium 142 (136-145) mmol/L Potassium 4.2 (3.5-5.1) mmol/L Chloride 98 (98-107) mmol/L Carbon Dioxide 43.3 H (21.0-32.0) mmol/L BUN 10 (7.0-18.0) mg/dL Creatinine 0.7 (0.6-1.0) mg/dL Est Cr Clr Drug Dosing 87.01 mL/min Estimated GFR (MDRD) > 60.0 ml/min Glucose 135 H (74-106) mg/dL Calcium 8.8 (8.5-10.1) mg/dL Total Bilirubin 0.2 (0.2-1.0) mg/dL AST 16 (15-37) IU/L ALT 22 (14-63) IU/L Alkaline Phosphatase 98 (46-116) U/L Troponin I <0.050 (0.000-0.056) ng/mL B-Natriuretic Peptide 18 (<100) PG/ML Total Protein 6.5 (6.4-8.2) g/dL Albumin 2.8 L (3.4-5.0) g/dL Globulin 3.7 (2.6-4.0) g/dL Albumin/Globulin Ratio 0.8 L (0.9-1.6) Influenza Type A RNA (NEGATIVE) Influenza Type B RNA (NEGATIVE) SARS-CoV-2 RNA (RUBIN) (NEGATIVE) 12/03/20 12/03/20 12/03/20 Range/Units 20:54 20:54 23:36 WBC (4.0-11.0) K/uL RBC (4.30-5.90) M/uL Hgb (12.0-16.0) g/dL Hct (36.0-46.0) % MCV (80.0-98.0) fL MCH (27.0-32.0) pg MCHC (31.0-37.0) g/dL RDW Std Deviation (28.0-62.0) fl RDW Coeff of Vera (11.0-15.0) % Plt Count (150-400) K/uL MPV (7.40-12.00) fL Neut % (Auto) (48.0-80.0) % Lymph % (Auto) (16.0-40.0) % [place] % (Auto) (0.0-15.0) % Eos % (Auto) (0.0-7.0) % Baso % (Auto) (0.0-1.5) % Neut # (Auto) (1.4-5.7) K/uL Lymph # (Auto) (0.6-2.4) K/uL [place] # (Auto) (0.0-0.8) K/uL Eos # (Auto) (0.0-0.7) K/uL Baso # (Auto) (0.0-0.1) K/uL Nucleated RBC % /100WBC Nucleated RBCs # K/uL D-Dimer, Quantitative 0.52 H (0.0-0.50) mg/L FEU VBG pH 7.36 (7.31-7.41) VBG pCO2 92 H (41-51) mmHG VBG pO2 62 mmHG VBG HCO3 52 H (23-28) mEq/L VBG Total CO2 46 H (24-29) mmol/L VBG Base Excess 20.3 H (-2.0-3.0) Sodium (136-145) mmol/L Potassium (3.5-5.1) mmol/L Chloride (98-107) mmol/L Carbon Dioxide (21.0-32.0) mmol/L BUN (7.0-18.0) mg/dL Creatinine (0.6-1.0) mg/dL Est Cr Clr Drug Dosing mL/min Estimated GFR (MDRD) ml/min Glucose (74-106) mg/dL Calcium (8.5-10.1) mg/dL Total Bilirubin (0.2-1.0) mg/dL AST (15-37) IU/L ALT (14-63) IU/L Alkaline Phosphatase (46-116) U/L Troponin I (0.000-0.056) ng/mL B-Natriuretic Peptide (<100) PG/ML Total Protein (6.4-8.2) g/dL Albumin (3.4-5.0) g/dL Globulin (2.6-4.0) g/dL Albumin/Globulin Ratio (0.9-1.6) Influenza Type A RNA NEGATIVE (NEGATIVE) Influenza Type B RNA NEGATIVE (NEGATIVE) SARS-CoV-2 RNA (RUBIN) NEGATIVE (NEGATIVE) 12/04/20 12/04/20 Range/Units 05:03 05:20 WBC 5.02 (4.0-11.0) K/uL RBC 4.75 (4.30-5.90) M/uL Hgb 14.9 (12.0-16.0) g/dL Hct 48.7 H (36.0-46.0) % MCV 102.5 H (80.0-98.0) fL MCH 31.4 (27.0-32.0) pg MCHC 30.6 L (31.0-37.0) g/dL RDW Std Deviation 52.0 (28.0-62.0) fl RDW Coeff of Vera 14 (11.0-15.0) % Plt Count 207 (150-400) K/uL MPV 11.50 (7.40-12.00) fL Neut % (Auto) (48.0-80.0) % Lymph % (Auto) (16.0-40.0) % [place] % (Auto) (0.0-15.0) % Eos % (Auto) (0.0-7.0) % Baso % (Auto) (0.0-1.5) % Neut # (Auto) (1.4-5.7) K/uL Lymph # (Auto) (0.6-2.4) K/uL [place] # (Auto) (0.0-0.8) K/uL Eos # (Auto) (0.0-0.7) K/uL Baso # (Auto) (0.0-0.1) K/uL Nucleated RBC % /100WBC Nucleated RBCs # K/uL D-Dimer, Quantitative (0.0-0.50) mg/L FEU VBG pH (7.31-7.41) VBG pCO2 (41-51) mmHG VBG pO2 mmHG VBG HCO3 (23-28) mEq/L VBG Total CO2 (24-29) mmol/L VBG Base Excess (-2.0-3.0) Sodium 142 (136-145) mmol/L Potassium 4.6 (3.5-5.1) mmol/L Chloride 98 (98-107) mmol/L Carbon Dioxide 42.5 H (21.0-32.0) mmol/L BUN 11 (7.0-18.0) mg/dL Creatinine 0.6 (0.6-1.0) mg/dL Est Cr Clr Drug Dosing 101.51 mL/min Estimated GFR (MDRD) > 60.0 ml/min Glucose 178 H (74-106) mg/dL Calcium 8.7 (8.5-10.1) mg/dL Total Bilirubin (0.2-1.0) mg/dL AST (15-37) IU/L ALT (14-63) IU/L Alkaline Phosphatase (46-116) U/L Troponin I (0.000-0.056) ng/mL B-Natriuretic Peptide (<100) PG/ML Total Protein (6.4-8.2) g/dL Albumin (3.4-5.0) g/dL Globulin (2.6-4.0) g/dL Albumin/Globulin Ratio (0.9-1.6) Influenza Type A RNA (NEGATIVE) Influenza Type B RNA (NEGATIVE) SARS-CoV-2 RNA (RUBIN) (NEGATIVE) Result Diagrams: 12/04/20 05:20 12/04/20 05:03 Sepsis Event Note - Evaluation Sepsis Screening Result: No Definite Risk - Focused Exam Vital Signs: Vital Signs Temp Pulse Resp BP BP Pulse Ox Pulse Ox 12/04/20 11:40 36.5 C 93 17 131/74 88 L 12/04/20 10:07 124/72 12/04/20 07:30 36.4 C 88 16 125/62 88 L 12/04/20 04:45 36.1 C 88 18 101/47 L 86 L 12/04/20 02:20 36.7 C 100 17 127/65 87 L 12/04/20 01:49 99 20 108/51 L 90 L 12/04/20 01:24 87 L - Problem List Review Problem List Initiated/Reviewed/Updated: Yes - My Orders Last 24 Hours: My Active Orders 12/04/20 01:24 Oxygen Therapy [RC] PRN Up ad Nataliya [RC] ASDIRECTED VTE/DVT Education [RC] PER UNIT ROUTINE Vital Signs [RC] Q4H Sequential Compression Device [OM.PC] Per Unit Routine Resuscitation Status Routine 12/04/20 01:25 Antiembolic Devices [RC] PER UNIT ROUTINE RT Aerosol Therapy [RC] ASDIRECTED Albuterol [Proventil Neb Soln] 2.5 mg NEB Q4H PRN 12/04/20 01:26 RT Aerosol Therapy [RC] ASDIRECTED 12/04/20 01:30 Enoxaparin [Lovenox] 40 mg SUBCUT Q24H 12/04/20 06:00 Albuterol/Ipratropium [DuoNeb 3.0-0.5 MG/3 ML] 3 ml NEB Q6HRRT 12/04/20 Breakfast Regular Diet [DIET] 12/04/20 09:00 Aspirin 81 mg PO DAILY Furosemide [Lasix] 40 mg PO DAILY lisinopriL [Prinivil] 10 mg PO DAILY methylPREDNISolone Sod Succ [Solu-MEDROL] 60 mg IVPUSH DAILY - Plan Plan:: 55 yo female admitted with COPD exacerbation with acute on chronic hypoxic/hypercapnic respiratory failure. COPD exacerbation: improving, continue solumedrol, duonebs dispo: likely home tomorrow.
[2020-12-04] MEDS: TRELEGY ELLIPTA INH SCH (19:54)
[2020-12-05] MEDS: Albuterol/Ipratropium 3.0-0.5 MG/3 ML Neb Soln NEB SCH ×2 (00:42→05:14)
[2020-12-05] MEDS: Enoxaparin 40 MG/0.4 ML Syringe SUBCUT SCH (00:42)
[2020-12-05 06:36] LABS: BLOOD UREA NITROGEN,BUN 15 mg/dL (7.0-18.0); CHLORIDE,CL 101 mmol/L (98-107); GLUCOSE RANDOM 98 mg/dL (74-106); POTASSIUM,K 4.9 mmol/L (3.5-5.1); SODIUM,NA 142 mmol/L (136-145)
[2020-12-05 07:03] VITALS: PULSE 90
[2020-12-05] MEDS ORDERED: Furosemide 40 MG Tab PO SCH (09:00)
[2020-12-05] MEDS ORDERED: Aspirin 81 MG Tab.Chew PO SCH (09:00)
[2020-12-05] MEDS ORDERED: Lisinopril 10 MG Tab PO SCH (09:00)
[2020-12-05] MEDS: TRELEGY ELLIPTA INH SCH (09:03)
[2020-12-05 09:08] VITALS: BP 97/63
[2020-12-05] MEDS: methylPREDNISolone Sodium Succinate 40 MG/1 ML SDV IVPUSH SCH (09:10)
--- NOTE | 2020-12-05 13:03 | PCM.DCSUM1 ---
Discharge Summary - Hospital Course Brief History: 55 yo female with pmh of severe COPD who uses 3-4 L of Oxygen via NC at home how presented to the ED with complaints of worsening shortness of breath and productive cough. Patient denies any fevers or chest pain. Patient was noted to be satting 87% on [address] chest was negative for PE. She was given solumedrol and duonebs with improvement in her dyspnea. Diagnosis: Stroke: No - Discharge Data Discharge Date: 12/05/20 Discharge Disposition: Home, Self-Care 01 Condition: Good - Referral to Home Health Primary Care Physician: Hernesto Gong MD - Discharge Diagnosis/Problem(s) (1) HLD (hyperlipidemia) SNOMED Code(s): 34324466 ICD Code: E78.5 - HYPERLIPIDEMIA, UNSPECIFIED Status: Chronic (2) Oxygen dependent SNOMED Code(s): 916430475631 ICD Code: Z99.81 - DEPENDENCE ON SUPPLEMENTAL OXYGEN Status: Chronic (3) Acute on chronic respiratory failure with hypoxia and hypercapnia SNOMED Code(s): 43927549682544 ICD Code: J96.21 - ACUTE AND CHRONIC RESPIRATORY FAILURE WITH HYPOXIA; J96.22 - ACUTE AND CHRONIC RESPIRATORY FAILURE WITH HYPERCAPNIA Status: Acute (4) COPD exacerbation SNOMED Code(s): 145353179 ICD Code: J44.1 - CHRONIC OBSTRUCTIVE PULMONARY DISEASE W (ACUTE) EXACERBATION Status: Acute (5) HTN (hypertension) SNOMED Code(s): 49511465 ICD Code: I10 - ESSENTIAL (PRIMARY) HYPERTENSION Status: Chronic Qualifiers: Hypertension type: essential hypertension Qualified Code(s): I10 - Essential (primary) hypertension (6) Obesity SNOMED Code(s): 998574622, 663233230 ICD Code: E66.9 - OBESITY, UNSPECIFIED Status: Chronic - Patient Summary/Data Hospital Course: Admission diagnoses COPD exacerbation Acute on chronic hypoxic/hypercapnic respiratory failure Discharge diagnoses COPD exacerbation Acute on chronic hypoxic/hypercapnic respiratory failure Other PMH HLD Hypertension Obesity Chronic back pain Zakia was admitted secondary to acute on chronic hypercapnic/hypoxic respiratory failure and COPD exacerbation. He was treated with Solu-Medrol along with increasing DuoNebs. Today patient is feeling much improved. She is on 3-1/2 L nasal cannula lung sounds are clear no further significant wheezing or dyspnea noted. She is eager for discharge home. She will be discharged home with prednisone taper starting at 40 mg tapering down every 3 days to 10 mg then stopping. No antibiotics sent at this time as no infectious process was suspected. She will follow-up with PCP. Work note given on discharge. She was counseled on side effects of prednisone as well as monitoring symptoms at home. If she continues to have worsening dyspnea increased need of oxygen or chest pain she should be evaluated in the ER. She is to follow-up with PCP or return to the ER clinic if concerns arise sooner. - Patient Instructions Diet: Usual Diet as Tolerated Activity: No Strenuous Activities Showering/Bathing: May Shower Notify Provider of: Fever, Increased Pain, Swelling and Redness, Drainage, Nausea and/or Vomiting - Discharge Plan *PRESCRIPTION DRUG MONITORING PROGRAM REVIEWED*: Not Applicable *COPY OF PRESCRIPTION DRUG MONITORING REPORT IN PATIENT VALENTE: Not Applicable Prescriptions/Med Rec: predniSONE [Prednisone] 10 - 40 mg PO DAILY #30 tablet Home Medications: Home Meds Albuterol Sulfate 2.5 mg NEB Q4H PRN 12/05/19 [History] Cholecalciferol (Vitamin D3) [Vitamin D3] 25 mcg PO DAILY 12/05/19 [History] Multivitamin [Multi-Vitamin Daily] 1 tab PO DAILY 12/05/19 [History] lisinopriL [Lisinopril] 10 mg PO DAILY 12/05/19 [History] Albuterol [Ventolin HFA] 2 inh INH Q4H PRN 08/06/20 [History] Fluticasone/Umeclidin/Vilanter [Trelegy Ellipta 100-62.5-25 MCG] 1 puff INH DAILY 08/06/20 [History] Furosemide [Lasix] 40 mg PO DAILY 08/06/20 [History] Aspirin [Halfprin] 81 mg PO DAILY 12/04/20 [History] Melatonin 5 mg PO BEDTIME 12/04/20 [History] Nicotine [Nicotine Patch] 21 mg TD DAILY 12/04/20 [History] predniSONE [Prednisone] 10 - 40 mg PO DAILY #30 tablet 12/05/20 [Rx] Oxygen Therapy Mode: Room Air Patient Handouts: Chronic Obstructive Pulmonary Disease Exacerbation, [id number], Prednisone tablets Referrals: Hernesto Gong MD [Primary Care Provider] - 12/12/20 10:30 am - Discharge Summary/Plan Comment DC Time >30 min.: No - Patient Data Vitals - Most Recent: Last Vital Signs Temp 98.2 F 12/05/20 06:59 Pulse 90 12/05/20 06:59 Resp 16 12/05/20 06:59 BP 97/63 12/05/20 09:07 Pulse Ox 92 L 12/05/20 06:59 Weight - Most Recent: 104.644 kg I&O - Last 24 hours: Intake & Output 12/04/20 12/05/20 12/05/20 22:59 06:59 14:59 Intake Total 370 800 Output Total 1325 1300 Balance -955 -500 Lab Results - Last 24 hrs: Laboratory Results - last 24 hr 12/05/20 12/05/20 Range/Units 05:35 05:35 WBC 9.55 (4.0-11.0) K/uL RBC 4.96 (4.30-5.90) M/uL Hgb 15.1 (12.0-16.0) g/dL Hct 49.8 H (36.0-46.0) % MCV 100.4 H (80.0-98.0) fL MCH 30.4 (27.0-32.0) pg MCHC 30.3 L (31.0-37.0) g/dL RDW Std Deviation 51.9 (28.0-62.0) fl RDW Coeff of Vera 14 (11.0-15.0) % Plt Count 202 (150-400) K/uL MPV 10.70 (7.40-12.00) fL Neut % (Auto) 75.6 (48.0-80.0) % Lymph % (Auto) 16.4 (16.0-40.0) % [place] % (Auto) 7.7 (0.0-15.0) % Eos % (Auto) 0.2 (0.0-7.0) % Baso % (Auto) 0.1 (0.0-1.5) % Neut # (Auto) 7.2 H (1.4-5.7) K/uL Lymph # (Auto) 1.6 (0.6-2.4) K/uL [place] # (Auto) 0.7 (0.0-0.8) K/uL Eos # (Auto) 0.0 (0.0-0.7) K/uL Baso # (Auto) 0.0 (0.0-0.1) K/uL Nucleated RBC % 0.0 /100WBC Nucleated RBCs # 0 K/uL Sodium 142 (136-145) mmol/L Potassium 4.9 (3.5-5.1) mmol/L Chloride 101 (98-107) mmol/L Carbon Dioxide 45.0 H (21.0-32.0) mmol/L BUN 15 (7.0-18.0) mg/dL Creatinine 0.5 L (0.6-1.0) mg/dL Est Cr Clr Drug Dosing 121.81 mL/min Estimated GFR (MDRD) > 60.0 ml/min Glucose 98 (74-106) mg/dL Calcium 8.5 (8.5-10.1) mg/dL Med Orders - Current: Current Medications Discontinued Medications Albuterol (Albuterol 0.083% 2.5 Mg/3 Ml Neb Soln) 2.5 mg NEB Q4H PRN PRN Reason: Shortness of Breath Albuterol/Ipratropium (Albuterol/Ipratropium 3.0-0.5 Mg/3 Ml Neb Soln) 3 ml NEB ONETIME ONE Stop: 12/03/20 20:48 Last Admin: 12/03/20 21:23 Dose: 3 ml Documented by: Albuterol/Ipratropium (Albuterol/Ipratropium 3.0-0.5 Mg/3 Ml Neb Soln) 3 ml NEB ONETIME ONE Stop: 12/03/20 23:08 Last Admin: 12/03/20 23:45 Dose: 3 ml Documented by: Albuterol/Ipratropium (Albuterol/Ipratropium 3.0-0.5 Mg/3 Ml Neb Soln) 3 ml NEB Q6HRRT [facility] Last Admin: 12/05/20 05:14 Dose: 3 ml Documented by: Aspirin (Aspirin 81 Mg Tab.Chew) 81 mg PO DAILY [facility] Last Admin: 12/04/20 10:08 Dose: 81 mg Documented by: Enoxaparin Sodium (Enoxaparin 40 Mg/0.4 Ml Syringe) 40 mg SUBCUT Q24H [facility] Last Admin: 12/05/20 00:42 Dose: Not Given Documented by: Furosemide (Furosemide 40 Mg Tab) 40 mg PO DAILY [facility] Last Admin: 12/04/20 10:05 Dose: 40 mg Documented by: Iopamidol (Iopamidol 755 Mg/Ml 500 Ml Multipack Bottle) 100 ml IVPUSH ONETIME STA Stop: 12/03/20 22:14 Last Admin: 12/03/20 22:14 Dose: 100 ml Documented by: Lisinopril (Lisinopril 10 Mg Tab) 10 mg PO DAILY [facility] Last Admin: 12/04/20 10:07 Dose: 10 mg Documented by: Methylprednisolone Sodium Succinate (Methylprednisolone Sodium Succinate 125 Mg/2 Ml Sdv) 125 mg IVPUSH ONETIME ONE Stop: 12/03/20 20:48 Last Admin: 12/03/20 21:23 Dose: 125 mg Documented by: Methylprednisolone Sodium Succinate (Methylprednisolone Sodium Succinate 40 Mg/1 Ml Sdv) 60 mg IVPUSH DAILY [facility] Last Admin: 12/05/20 09:10 Dose: 60 mg Documented by: Aspirin 81 Mg Tab. (Chew) 1 each PO DAILY [facility] Last Admin: 12/05/20 09:01 Dose: 1 each Documented by: Lisinopril 10 Mg Tab 1 each PO DAILY [facility] Last Admin: 12/05/20 09:07 Dose: 1 each Documented by: Furosemide 40 Mg Tab 1 each PO DAILY [facility] Last Admin: 12/05/20 09:02 Dose: 1 each Documented by: Uday Nicholson 100- (62.5-25: Pt Own Med) 0 each INH DAILY [facility] Last Admin: 12/05/20 09:03 Dose: 1 each Documented by: Sodium Chloride (Sodium Chloride 0.9% 10 Ml Syringe) 10 ml FLUSH ASDIRECTED PRN PRN Reason: Keep Vein Open Sodium Chloride (Sodium Chloride 0.9% 2.5 Ml Syringe) 2.5 ml FLUSH ASDIRECTED PRN PRN Reason: Keep Vein Open
== END 2020-12-05 11:05 | disposition home or self-care (01) | DRG 189 ==
LOC: MW.ED 20:13 → MW.MS 23:10 → UNDODISIN 12-05 11:05
PROVIDERS: ADMIT Internal Medicine; ATTEND Internal Medicine
DX: J96.22 Acute and chronic respiratory failure with hypercapnia (principal); J44.1 Chronic obstructive pulmonary disease with (acute) exacerbation; J96.21 Acute and chronic respiratory failure with hypoxia; E78.5 Hyperlipidemia, unspecified; I10 Essential (primary) hypertension; M54.89 Other dorsalgia; E66.9 Obesity, unspecified; Z68.34 Body mass index [BMI] 34.0-34.9, adult; Z99.81 Dependence on supplemental oxygen; Z90.89 Acquired absence of other organs; Z90.49 Acquired absence of other specified parts of digestive tract; Z98.51 Tubal ligation status; Z20.822 Contact with and (suspected) exposure to COVID-19
CPT/HCPCS: 0240U; 36415; 71045; 71045-26; 71275; 71275-26; 80048; 80053; 82803; 83880; 84484; 85025; 85027; 85379; 93005; 93010; 94640; 96374; 99284; 99285-25; A9270-GY; J2920; J2930; J7620-GY; Q9967

== ENCOUNTER 2020-12-23 07:20 | Emergency (ER) | payer OTHER ==
[2020-12-23] MEDS ORDERED: Sodium Chloride 0.9% 2.5 ML Syringe FLUSH PRN (07:35)
[2020-12-23] MEDS ORDERED: Sodium Chloride 0.9% 10 ML Syringe FLUSH PRN (07:35)
[2020-12-23] MEDS ORDERED: methylPREDNISolone Sodium Succinate 125 MG/2 ML SDV IVPUSH ONE (07:36)
[2020-12-23] MEDS ORDERED: Albuterol/Ipratropium 3.0-0.5 MG/3 ML Neb Soln NEB ONE (07:36)
--- NOTE | 2020-12-23 07:43 | EDM.PDOC ---
ED HPI GENERAL MEDICAL PROBLEM - General Chief Complaint: Respiratory Problem Stated Complaint: COPD; SHORTNESS OF BREATH Time Seen by Provider: 12/23/20 07:23 - History of Present Illness INITIAL COMMENTS - FREE TEXT/NARRATIVE: 55-year-old female with a history of significant COPD with chronic hypoxic respiratory failure and O2 dependence presenting with worsening shortness of breath over the last 2 to 3 days. No fever no chest pain no abdominal pain or other symptoms. Patient felt worse when she went to work today causing her to present to the ER. Patient had a recent admission here in the middle of November. She was in house for 2 days for COPD exacerbation. She was discharged home on a 12-day prednisone taper. She felt much better following this. She went began to worsen 2 or 3 days ago. No lower extremity pain or swelling no sick contacts. Patient has not been vaccinated against Covid. - Related Data Allergies Allergy/AdvReac Type Severity Reaction Status Date / Time cephalexin [From Keflex] Allergy Hives Verified 12/23/20 07:31 diclofenac Allergy Rash Verified 12/23/20 07:31 oxycodone [From Percocet] Allergy Rash Verified 12/23/20 07:31 Home Meds: Home Meds Albuterol Sulfate 2.5 mg NEB Q4H PRN 12/05/19 [History] Cholecalciferol (Vitamin D3) [Vitamin D3] 25 mcg PO DAILY 12/05/19 [History] Multivitamin [Multi-Vitamin Daily] 1 tab PO DAILY 12/05/19 [History] lisinopriL [Lisinopril] 10 mg PO DAILY 12/05/19 [History] Albuterol [Ventolin HFA] 2 inh INH Q4H PRN 08/06/20 [History] Fluticasone/Umeclidin/Vilanter [Trelegy Ellipta 100-62.5-25 MCG] 1 puff INH DAILY 08/06/20 [History] Furosemide [Lasix] 40 mg PO DAILY 08/06/20 [History] Aspirin [Halfprin] 81 mg PO DAILY 12/04/20 [History] Melatonin 5 mg PO BEDTIME 12/04/20 [History] Nicotine [Nicotine Patch] 21 mg TD DAILY 12/04/20 [History] predniSONE [Prednisone] 10 - 40 mg PO DAILY #30 tablet 12/05/20 [Rx] Albuterol/Ipratropium [DuoNeb 3.0-0.5 MG/3 ML] 3 ml .XX TID 4 Days #12 neb 12/23/20 [Rx] Azithromycin [Zithromax] 250 mg PO DAILY 5 Days #6 tablet 12/23/20 [Rx] predniSONE 10 mg PO .TAPER 7 Days #22 tab 12/23/20 [Rx] Past Medical History HEENT 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: Other (See Below) Other HEENT History: sinus issues Cardiovascular 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: High Cholesterol, Hypertension Respiratory 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: Bronchitis, Recurrent, COPD, Sleep Apnea Gastrointestinal 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: None Genitourinary 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: None 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: Musculoskeletal 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: Back Pain, Chronic Neurological 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: None Psychiatric 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: None Endocrine/Metabolic 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: Obesity/BMI 30+ Hematologic 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: None Immunologic 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: None Oncologic (Cancer) 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: None Dermatologic 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: None - Infectious Disease History Infectious Disease 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: Chicken Pox - Past Surgical History Head Surgeries/Procedures: Reports: None HEENT Surgical 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: Tonsillectomy Cardiovascular Surgical 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: None Respiratory Surgical 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: None GI Surgical 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: Cholecystectomy Female Surgical 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: Tubal Ligation Endocrine Surgical 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: None Musculoskeletal Surgical 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: Other (See Below) Other Musculoskeletal Surgeries/Procedures:: Left arm surgery Social & Family History - Family History Family Medical History: No Pertinent Family History - Tobacco Use Tobacco Use Status *Q: Former Tobacco User Used Tobacco, but Quit: Yes Month/Year Tobacco Last Used: 1 month - Caffeine Use Caffeine Use: Reports: None Caffeine Use Comment: seldom drinks energy drinks - Recreational Drug Use Recreational Drug Use: No - Living Situation & Occupation Occupation: Employed ED ROS GENERAL - Review of Systems Review Of Systems: See Below Free Text/Narrative/Comment: General: No fever. Neck: No neck stiffness. Respiratory: Per HPI Cardiac: No chest pain. Gastrointestinal: No nausea, vomiting or abdominal pain. Musculoskeletal: No myalgias/arthralgias. Neurologic: No headache. ED EXAM, GENERAL - Physical Exam Exam: See Below Free Text/Narrative:: General Appearance: No acute distress, appears comfortable Skin: No rash HEENT: Normocephalic/atraumatic, sclera anicteric, mucous membranes moist Neck: Normal range of motion Chest and Lungs: Diffuse expiratory wheezing with prolonged expiratory phase not dyspneic with speech Cardiovascular: Regular rate and rhythm, no murmur Abdomen: Soft, non-tender Musculoskeletal: No edema or tenderness Neurologic: Awake, alert, no obvious deficits, moving all extremities Psychiatric: Appropriate, cooperative #1 Interpretation EKG Date: 12/23/20 Time: 07:40 EKG Interpretation Comments: Sinus tachycardia with a rate of 103 right axis deviation occasional PVCs no acute ischemia Course - Vital Signs Last Recorded V/S: Last Vital Signs Temp 97.9 F 12/23/20 07:28 Pulse 95 12/23/20 08:32 Resp 18 12/23/20 08:32 BP 116/66 12/23/20 08:32 Pulse Ox 88 L 12/23/20 08:32 - Orders/Labs/Meds Orders: Active Orders 24 hr Category Date Time Status RT Aerosol Therapy [RC] ASDIRECTED Care 12/23/20 07:36 Active Sodium Chloride 0.9% [Saline Flush] Med 12/23/20 07:35 Active 10 ml FLUSH ASDIRECTED PRN Sodium Chloride 0.9% [Saline Flush] Med 12/23/20 07:35 Active 2.5 ml FLUSH ASDIRECTED PRN Saline Lock Insert [OM.PC] Stat Oth 12/23/20 07:35 Ordered Medication Orders Sodium Chloride (Sodium Chloride 0.9% 10 Ml Syringe) 10 ml FLUSH ASDIRECTED PRN PRN Reason: Keep Vein Open Last Admin: 12/23/20 07:40 Dose: 10 ml Documented by: MANDEEP Sodium Chloride (Sodium Chloride 0.9% 2.5 Ml Syringe) 2.5 ml FLUSH ASDIRECTED PRN PRN Reason: Keep Vein Open Last Admin: 12/23/20 07:40 Dose: 2.5 ml Documented by: MANDEEP Labs: Laboratory Tests 12/23/20 12/23/20 Range/Units 07:29 07:29 WBC 13.47 H (4.0-11.0) K/uL RBC 4.71 (4.30-5.90) M/uL Hgb 14.8 (12.0-16.0) g/dL Hct 47.4 H (36.0-46.0) % MCV 100.6 H (80.0-98.0) fL MCH 31.4 (27.0-32.0) pg MCHC 31.2 (31.0-37.0) g/dL RDW Std Deviation 52.5 (28.0-62.0) fl RDW Coeff of Vera 14 (11.0-15.0) % Plt Count 201 (150-400) K/uL MPV 10.60 (7.40-12.00) fL Neut % (Auto) 82.4 H (48.0-80.0) % Lymph % (Auto) 9.8 L (16.0-40.0) % [place] % (Auto) 7.3 (0.0-15.0) % Eos % (Auto) 0.4 (0.0-7.0) % Baso % (Auto) 0.1 (0.0-1.5) % Neut # (Auto) 11.1 H (1.4-5.7) K/uL Lymph # (Auto) 1.3 (0.6-2.4) K/uL [place] # (Auto) 1.0 H (0.0-0.8) K/uL Eos # (Auto) 0.1 (0.0-0.7) K/uL Baso # (Auto) 0.0 (0.0-0.1) K/uL Nucleated RBC % 0.0 /100WBC Nucleated RBCs # 0 K/uL Sodium 144 (136-145) mmol/L Potassium 3.7 (3.5-5.1) mmol/L Chloride 99 (98-107) mmol/L Carbon Dioxide 44.6 H (21.0-32.0) mmol/L BUN 8 (7.0-18.0) mg/dL Creatinine 0.6 (0.6-1.0) mg/dL Est Cr Clr Drug Dosing 89.70 mL/min Estimated GFR (MDRD) > 60.0 ml/min Glucose 98 (74-106) mg/dL Calcium 8.5 (8.5-10.1) mg/dL Total Bilirubin 0.3 (0.2-1.0) mg/dL AST 17 (15-37) IU/L ALT 21 (14-63) IU/L Alkaline Phosphatase 107 (46-116) U/L Troponin I < 0.050 (0.000-0.056) ng/mL Total Protein 6.4 (6.4-8.2) g/dL Albumin 3.0 L (3.4-5.0) g/dL Globulin 3.4 (2.6-4.0) g/dL Albumin/Globulin Ratio 0.9 (0.9-1.6) Meds: Medications Generic Name Dose Route Start Last Admin Trade Name Freq PRN Reason Stop Dose Admin Sodium Chloride 10 ml 12/23/20 07:35 12/23/20 07:40 Sodium Chloride 0.9% 10 Ml Syringe FLUSH 10 ml ASDIRECTED PRN Administration Keep Vein Open Sodium Chloride 2.5 ml 12/23/20 07:35 12/23/20 07:40 Sodium Chloride 0.9% 2.5 Ml Syringe FLUSH 2.5 ml ASDIRECTED PRN Administration Keep Vein Open Discontinued Medications Generic Name Dose Route Start Last Admin Trade Name Freq PRN Reason Stop Dose Admin Albuterol/Ipratropium 3 ml 12/23/20 07:36 12/23/20 07:40 Albuterol/Ipratropium 3.0-0.5 Mg/3 Ml Neb Soln NEB 12/23/20 07:37 3 ml ONETIME ONE Administration Methylprednisolone Sodium Succinate 125 mg 12/23/20 07:36 12/23/20 07:40 Methylprednisolone Sodium Succinate 125 Mg/2 Ml Sdv IVPUSH 12/23/20 07:37 125 mg ONETIME ONE Administration Departure - Departure Time of Disposition: 08:46 Disposition: Home, Self-Care 01 Condition: Good Clinical Impression: COPD with exacerbation - Discharge Information *PRESCRIPTION DRUG MONITORING PROGRAM REVIEWED*: Not Applicable *COPY OF PRESCRIPTION DRUG MONITORING REPORT IN PATIENT VALENTE: Not Applicable Prescriptions: Albuterol/Ipratropium [DuoNeb 3.0-0.5 MG/3 ML] 3 ml .XX TID 4 Days #12 neb predniSONE 10 mg PO .TAPER 7 Days #22 tab Azithromycin [Zithromax] 250 mg PO DAILY 5 Days #6 tablet Instructions: Chronic Obstructive Pulmonary Disease Forms: ED Department Discharge Additional Instructions: Please be sure to take the full 5 days of the azithromycin antibiotic. Please also be sure to take the course of prednisone. I have also sent a prescription for DuoNeb treatments. Please do 1 of these treatments every 6-8 hours. If your symptoms worsen please return to the ER. Please be sure to follow-up with your primary care doctor. The following information is given to patients seen in the emergency department who are being discharged to home. This information is to outline your options for follow-up care. We provide all patients seen in our emergency department with a follow-up referral. The need for follow-up, as well as the timing and circumstances, are variable depending upon the specifics of your emergency department visit. If you don't have a primary care physician on staff, we will provide you with a referral. We always advise you to contact your personal physician following an emergency department visit to inform them of the circumstance of the visit and for follow-up with them and/or the need for any referrals to a consulting specialist. The emergency department will also refer you to a specialist when appropriate. This referral assures that you have the opportunity for follow-up care with a specialist. All of these measure are taken in an effort to provide you with optimal care, which includes your follow-up. Under all circumstances we always encourage you to contact your private physician who remains a resource for coordinating your care. When calling for follow-up care, please make the office aware that this follow-up is from your recent emergency room visit. If for any reason you are refused follow-up, please contact the [facility] Emergency Department at and asked to speak to the emergency department charge nurse. Sepsis Event Note (ED) - Evaluation Sepsis Screening Result: No Definite Risk - Focused Exam Vital Signs: Vital Signs Temp Pulse Resp BP Pulse Ox 12/23/20 08:32 95 18 116/66 88 L 12/23/20 07:28 97.9 F 101 H 28 H 129/66 74 L - My Orders Last 24 Hours: My Active Orders 12/23/20 07:35 Sodium Chloride 0.9% [Saline Flush] 10 ml FLUSH ASDIRECTED PRN Sodium Chloride 0.9% [Saline Flush] 2.5 ml FLUSH ASDIRECTED PRN Saline Lock Insert [OM.PC] Stat 12/23/20 07:36 RT Aerosol Therapy [RC] ASDIRECTED - Assessment/Plan Last 24 Hours: My Active Orders 12/23/20 07:35 Sodium Chloride 0.9% [Saline Flush] 10 ml FLUSH ASDIRECTED PRN Sodium Chloride 0.9% [Saline Flush] 2.5 ml FLUSH ASDIRECTED PRN Saline Lock Insert [OM.PC] Stat 12/23/20 07:36 RT Aerosol Therapy [RC] ASDIRECTED Assessment:: 55-year-old female presenting with signs and symptoms that are most consistent with COPD exacerbation. ACS considered but no chest pain and nonischemic EKG. PE considered but symptoms are consistent with prior exacerbations. There is no chest pain pleuritic or otherwise there is no significant tachycardia. He is felt unlikely. Pneumonia possible felt unlikely but x-ray pending. DuoNeb and Solu-Medrol given. Patient has no systemic symptoms that would suggest Covid. Patient breathing relatively comfortably at this time and hopeful for discharge with additional steroid taper will continue to reassess. 0845: Patient symptoms have improved she feels better at this time. Oxygen saturation in the low 90s. Patient is a strong desire for discharge think this is reasonable she has symptom improvement she has improved work of breathing. Patient has had increase sputum production so we will do course of antibiotics. Patient will do an additional prednisone course as well as DuoNeb treatments. Return precautions discussed and understood.
[2020-12-23 08:06] LABS: BLOOD UREA NITROGEN,BUN 8 mg/dL (7.0-18.0); CARBON DIOXIDE,CO2 44.6 mmol/L (21.0-32.0); CHLORIDE,CL 99 mmol/L (98-107); GLUCOSE RANDOM 98 mg/dL (74-106); POTASSIUM,K 3.7 mmol/L (3.5-5.1); SODIUM,NA 144 mmol/L (136-145)
--- NOTE | 2020-12-23 08:16 | CR ---
Indication: Shortness of breath. History of COPD. Technique: AP portable view of the chest. Comparison: December 03, 2020. Findings: Bibasilar atelectasis is identified. Heart is normal in size. No pleural effusion or pneumothorax is identified. Impression: Bibasilar atelectasis Dictated by Shilpa Styles MD @ 12/23/2020 8:14:[address] Shilpa Styles @ Dec 23 2020 8:14AM
[2020-12-23 09:05] VITALS: BP 116/65; PULSE 94
== END 2020-12-23 09:04 | disposition home or self-care (01) ==
LOC: MW.ED 07:20
DX: J44.1 Chronic obstructive pulmonary disease with (acute) exacerbation (principal); I10 Essential (primary) hypertension; R00.0 Tachycardia, unspecified; E66.9 Obesity, unspecified; Z68.37 Body mass index [BMI] 37.0-37.9, adult; Z87.891 Personal history of nicotine dependence; Z88.1 Allergy status to other antibiotic agents; Z88.5 Allergy status to narcotic agent; Z88.8 Allergy status to other drugs, medicaments and biological substances; Z79.82 Long term (current) use of aspirin; Z79.899 Other long term (current) drug therapy
CPT/HCPCS: 36415; 71045; 80053; 84484; 85025; 93005; 94640; 96374; 99285; J2930; J7620-GY

== ENCOUNTER 2021-01-01 13:08 | Emergency (ER) | payer OTHER ==
--- NOTE | 2021-01-01 13:21 | PCM.SN.2 ---
- Free Text/Narrative Note: EKG done at 1315 hrs. sinus rhythm heart rate 91 UT 141 QT duration [address] [place] [address] patient was compared to 7 5 tracing and there is no significant change impression no acute injury
[2021-01-01] MEDS ORDERED: methylPREDNISolone Sodium Succinate 125 MG/2 ML SDV IVPUSH ONE (13:23)
--- NOTE | 2021-01-01 13:47 | EDM.PDOC ---
ED HPI GENERAL MEDICAL PROBLEM - General Chief Complaint: Respiratory Problem Stated Complaint: BREATHING PROBLEMS Time Seen by Provider: 01/01/21 13:10 Source of Information: Reports: Patient History Limitations: Reports: No Limitations - History of Present Illness INITIAL COMMENTS - FREE TEXT/NARRATIVE: HISTORY AND PHYSICAL: History of present illness: Patient is a 55-year-old female who presents to the emergency room with complaints of hypoxia and shortness of breath. She has a significant history of COPD with chronic hypoxic respiratory failure and oxygen dependency. She states she currently uses 3 L per nasal cannula and sits between 86 to 91%. She was seen in our emergency room on 12/23/2020 for similar complaints and had been placed on Z-tonia, prednisone and Duo Nebs. Patient denies any fever, chills, headache, change in vision, syncope or near syncope. Denies any chest pain, back pain, or hemoptysis. Patient states she does have a cough and feels like she has a lot of sputum she is trying to get up but is unable to. She believes this does playing part in her not receiving enough oxygen as her nasal cannula is set on "demand". She does not use continues oxygen as it "will eat up my oxygen too quick and insurance doesn't cover continuous". She noticed her fingertips have a blue discoloration, checked her oxygen and it was 65% on her 3 L per nasal cannula. When she got into her vehicle she switched over to her continuous oxygen at 5 L and she felt much better. Upon patient arrival to the emergency room (on her "on-demand" NC) she is 60% on 3L, her oxygen increased to 92% on 6L per NC switched to our system. She states she feels much better after receiving continuous oxygen. She denies any lower extremity pain or edema. Denies any abdominal pain, nausea, vomiting, diarrhea, constipation or dysuria. Has not noted any blood in urine or stool. Patient has been eating and drinking appropriately. Denies any recent travel or sick contacts. Review of systems: As per history of present illness and below otherwise all systems reviewed and negative. Past medical history: As per history of present illness and as reviewed below otherwise noncontributory. Surgical history: As per history of present illness and as reviewed below otherwise noncontributory. Social history: See social history for further information Family history: As per history of present illness and as reviewed below otherwise noncontributory. Physical exam: General: Well developed and well nourished 55 year old female. Alert and orientated x 3. Nontoxic in appearance and in no acute distress. Vital signs are stable and have been reviewed by me. Nursing notes were reviewed. HEENT: Atraumatic, normocephalic, pupils equal and reactive bilaterally, negat melissa for conjunctival pallor or scleral icterus, mucous membranes moist, throat clear, neck supple, nontender, trachea midline. No drooling or trismus noted. No meningeal signs. No hot potato voice noted. Lungs: Poor air exchange to auscultation bilaterally. No wheezes, rales, or rhonchi. Chest nontender. Normal work of breathing, no accessory muscles used. Heart: S1S2, regular rate and rhythm without overt murmur, gallops, or rubs. No JVD. No peripheral edema Abdomen: Soft, nondistended, nontender. Normoactive bowel sounds. Negative for masses or costovertebral tenderness. Skin: Intact, warm, dry. No lesions or rashes noted. Cap refill less than 3 seconds. Hematologic: No petechiae or purpra. Mucosa appropriate color and normal nail bed color and refill. Extremities: Atraumatic, moves all extremities per self without difficulty or deficits, negative for cords or calf pain. Neurovascular unremarkable. Neuro: Awake, alert, oriented. Cranial nerves II through XII unremarkable. Cerebellum unremarkable. Motor and sensory unremarkable throughout. Exam nonfocal. Psychiatric: Mood and affect are appropriate. Normal thought process. Answering questions appropriately. Notes: *This patient was seen and evaluated during the 2019 SARS-CoV-2 novel coronavirus pandemic period. Community viral transmission is ongoing at time of this encounter and the emergency department is operating under pandemic response procedures. 12/23/20: Patient was seen in the emergency room for COPD exacerbation. Patient was given Solu-Medrol and duo nebs and felt improved afterwards. She discharged to home and given a Z-pack, prednisone and duo nebs for home. Patient is a 55-year-old female who presents to the emergency room with complaints of shortness of breath and hypoxia. Patient reports that this is a COPD exacerbation and believes she needs her steroid pack adjusted. She was given a azithromycin, duo nebs, and prednisone once daily (7 day taper: 40mg x 4d, 30mg x 1d, 20mg x1 d, then 10mg) which she completed three days ago. Patient states she feels improved after being put on continuous oxygen here in the emergency room. She is agreeable to lab work and chest x-ray. She states s he doesn't want to be admitted for COPD exacerbation, "I can't afford to miss work". Negative COVID-19. CBC and CMP are unremarkable with the chest x-ray shows a right basilar atelectasis similar to prior. I have talked with the patient about today's findings, in addition to providing specific details for plan of care. I did request patient be admitted for COPD exacerbation. She did want to trial her home oxygen as she has been satting 95 percent on 5 L per nasal cannula while here. Putting her on 5 L on her "on demand" nasal cannula she drops down to 86%. Patient is aware of my request but continues to decline admission. 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 She states she cannot afford to miss work. She is aware of risks of returning home without further care with hospital admission, and accepts these risks. Diagnostics: CBC, CMP, EKG, chest x-ray Therapeutics: Solu-Medrol Prescription: Prednisone Impression: AMA COPD exacerbation Plan: 1. You were evaluated today on an emergent basis. You declined hospital admission. I do feel it is important that you get adequate oxygen for work, continuous 02. Take the steroid as directed. If your symptoms should worsen, new symptoms develop or any of the signs and symptoms we discussed should arise please return to the emergency room or call 911 (if needed). 2. You can alternate Tylenol and ibuprofen as needed for pain and fever management. 3. We encourage you to follow up with your primary care provider and/or recommended specialist in the next few days for re-evaluation and further care/management. Definitive disposition and diagnosis as appropriate pending reevaluation and review of above. - Related Data Allergies Allergy/AdvReac Type Severity Reaction Status Date / Time cephalexin [From Keflex] Allergy Hives Verified 01/01/21 13:53 diclofenac Allergy Rash Verified 01/01/21 13:53 oxycodone [From Percocet] Allergy Rash Verified 01/01/21 13:53 Home Meds: Home Meds Albuterol Sulfate 2.5 mg NEB Q4H PRN 12/05/19 [History] Cholecalciferol (Vitamin D3) [Vitamin D3] 25 mcg PO DAILY 12/05/19 [History] Multivitamin [Multi-Vitamin Daily] 1 tab PO DAILY 12/05/19 [History] lisinopriL [Lisinopril] 10 mg PO DAILY 12/05/19 [History] Albuterol [Ventolin HFA] 2 inh INH Q4H PRN 08/06/20 [History] Fluticasone/Umeclidin/Vilanter [Trelegy Ellipta 100-62.5-25 MCG] 1 puff INH DAILY 08/06/20 [History] Furosemide [Lasix] 40 mg PO DAILY 08/06/20 [History] Aspirin [Halfprin] 81 mg PO DAILY 12/04/20 [History] Melatonin 5 mg PO BEDTIME 12/04/20 [History] Nicotine [Nicotine Patch] 21 mg TD DAILY 12/04/20 [History] predniSONE [Prednisone] 10 - 40 mg PO DAILY #30 tablet 12/05/20 [Rx] Albuterol/Ipratropium [DuoNeb 3.0-0.5 MG/3 ML] 3 ml .XX TID 4 Days #12 neb 12/23/20 [Rx] Azithromycin [Zithromax] 250 mg PO DAILY 5 Days #6 tablet 12/23/20 [Rx] predniSONE 10 mg PO .TAPER 7 Days #22 tab 12/23/20 [Rx] predniSONE 1 dose PO DAILY 12 Days #30 tab 01/01/21 [Rx] Past Medical History HEENT 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: Other (See Below) Other HEENT History: sinus issues Cardiovascular 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: High Cholesterol, Hypertension Respiratory 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: Bronchitis, Recurrent, COPD, Sleep Apnea Gastrointestinal 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: None Genitourinary 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: None [employer]PUT[employer] TECH[employer]IAN 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: Musculoskeletal 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: Back Pain, Chronic Neurological 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: None Psychiatric 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: None Endocrine/Metabolic 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: Obesity/BMI 30+ Hematologic 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: None Immunologic 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: None Oncologic (Cancer) 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: None Dermatologic 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: None - Infectious Disease History Infectious Disease 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: Chicken Pox - Past Surgical History Head Surgeries/Procedures: Reports: None HEENT Surgical 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: Tonsillectomy Cardiovascular Surgical 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: None Respiratory Surgical 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: None GI Surgical 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: Cholecystectomy Female Surgical 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: Tubal Ligation Endocrine Surgical 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: None Musculoskeletal Surgical 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: Other (See Below) Other Musculoskeletal Surgeries/Procedures:: Left arm surgery Social & Family History - Family History Family Medical History: No Pertinent Family History - Caffeine Use Caffeine Use: Reports: None Caffeine Use Comment: seldom drinks energy drinks - Living Situation & Occupation Occupation: Employed ED ROS GENERAL - Review of Systems Review Of Systems: Comprehensive ROS is negative, except as noted in HPI. ED EXAM, GENERAL - Physical Exam Exam: See Below (See dictation) Course - Vital Signs Last Recorded V/S: Last Vital Signs Temp 98.2 F 01/01/21 13:10 Pulse 93 01/01/21 15:18 Resp 20 01/01/21 15:18 BP 144/69 H 01/01/21 15:18 Pulse Ox 87 L 01/01/21 15:18 - Orders/Labs/Meds Orders: Active Orders 24 hr Category Date Time Status Communication Order [RC] STAT Care 01/01/21 14:50 Active EKG Documentation Completion [RC] STAT Care 01/01/21 13:23 Active Labs: Laboratory Tests 01/01/21 01/01/21 01/01/21 Range/Units 13:20 13:20 13:20 WBC 9.78 (4.0-11.0) K/uL RBC 4.55 (4.30-5.90) M/uL Hgb 14.2 (12.0-16.0) g/dL Hct 46.2 H (36.0-46.0) % MCV 101.5 H (80.0-98.0) fL MCH 31.2 (27.0-32.0) pg MCHC 30.7 L (31.0-37.0) g/dL RDW Std Deviation 55.5 (28.0-62.0) fl RDW Coeff of Vera 15 (11.0-15.0) % Plt Count 228 (150-400) K/uL MPV 10.60 (7.40-12.00) fL Neut % (Auto) 70.4 (48.0-80.0) % Lymph % (Auto) 20.3 (16.0-40.0) % [place] % (Auto) 7.9 (0.0-15.0) % Eos % (Auto) 1.2 (0.0-7.0) % Baso % (Auto) 0.2 (0.0-1.5) % Neut # (Auto) 6.9 H (1.4-5.7) K/uL Lymph # (Auto) 2.0 (0.6-2.4) K/uL [place] # (Auto) 0.8 (0.0-0.8) K/uL Eos # (Auto) 0.1 (0.0-0.7) K/uL Baso # (Auto) 0.0 (0.0-0.1) K/uL Nucleated RBC % 0.0 /100WBC Nucleated RBCs # 0 K/uL VBG pH 7.38 (7.31-7.41) VBG pCO2 80 H (41-51) mmHG VBG pO2 54 mmHG VBG HCO3 47 H (23-28) mEq/L VBG Total CO2 42 H (24-29) mmol/L VBG Base Excess 17.2 H (-2.0-3.0) Sodium 144 (136-145) mmol/L Potassium 3.8 (3.5-5.1) mmol/L Chloride 99 (98-107) mmol/L Carbon Dioxide 43.5 H (21.0-32.0) mmol/L BUN 12 (7.0-18.0) mg/dL Creatinine 0.5 L (0.6-1.0) mg/dL Est Cr Clr Drug Dosing 121.81 mL/min Estimated GFR (MDRD) > 60.0 ml/min Glucose 87 (74-106) mg/dL Calcium 8.6 (8.5-10.1) mg/dL Total Bilirubin 0.3 (0.2-1.0) mg/dL AST 23 (15-37) IU/L ALT 27 (14-63) IU/L Alkaline Phosphatase 108 (46-116) U/L Total Protein 6.4 (6.4-8.2) g/dL Albumin 3.1 L (3.4-5.0) g/dL Globulin 3.3 (2.6-4.0) g/dL Albumin/Globulin Ratio 0.9 (0.9-1.6) SARS-CoV-2 RNA (RUBIN) (NEGATIVE) 01/01/21 Range/Units 13:54 WBC (4.0-11.0) K/uL RBC (4.30-5.90) M/uL Hgb (12.0-16.0) g/dL Hct (36.0-46.0) % MCV (80.0-98.0) fL MCH (27.0-32.0) pg MCHC (31.0-37.0) g/dL RDW Std Deviation (28.0-62.0) fl RDW Coeff of Vera (11.0-15.0) % Plt Count (150-400) K/uL MPV (7.40-12.00) fL Neut % (Auto) (48.0-80.0) % Lymph % (Auto) (16.0-40.0) % [place] % (Auto) (0.0-15.0) % Eos % (Auto) (0.0-7.0) % Baso % (Auto) (0.0-1.5) % Neut # (Auto) (1.4-5.7) K/uL Lymph # (Auto) (0.6-2.4) K/uL [place] # (Auto) (0.0-0.8) K/uL Eos # (Auto) (0.0-0.7) K/uL Baso # (Auto) (0.0-0.1) K/uL Nucleated RBC % /100WBC Nucleated RBCs # K/uL VBG pH (7.31-7.41) VBG pCO2 (41-51) mmHG VBG pO2 mmHG VBG HCO3 (23-28) mEq/L VBG Total CO2 (24-29) mmol/L VBG Base Excess (-2.0-3.0) Sodium (136-145) mmol/L Potassium (3.5-5.1) mmol/L Chloride (98-107) mmol/L Carbon Dioxide (21.0-32.0) mmol/L BUN (7.0-18.0) mg/dL Creatinine (0.6-1.0) mg/dL Est Cr Clr Drug Dosing mL/min Estimated GFR (MDRD) ml/min Glucose (74-106) mg/dL Calcium (8.5-10.1) mg/dL Total Bilirubin (0.2-1.0) mg/dL AST (15-37) IU/L ALT (14-63) IU/L Alkaline Phosphatase (46-116) U/L Total Protein (6.4-8.2) g/dL Albumin (3.4-5.0) g/dL Globulin (2.6-4.0) g/dL Albumin/Globulin Ratio (0.9-1.6) SARS-CoV-2 RNA (RUBIN) NEGATIVE (NEGATIVE) Meds: Medications Discontinued Medications Generic Name Dose Route Start Last Admin Trade Name Freq PRN Reason Stop Dose Admin Methylprednisolone Sodium Succinate 125 mg 01/01/21 13:23 01/01/21 13:43 Methylprednisolone Sodium Succinate 125 Mg/2 Ml Sdv IVPUSH 01/01/21 13:24 125 mg ONETIME ONE Administration Departure - Departure Time of Disposition: 15:19 Disposition: Against Medical Advice 07 Clinical Impression: COPD exacerbation - Discharge Information Prescriptions: predniSONE 1 dose PO DAILY 12 Days #30 tab Instructions: Chronic Obstructive Pulmonary Disease Exacerbation, [id number] Referrals: PCP,None [Ordering Only Provider] - Forms: ED Department Discharge Additional Instructions: The following information is given to patients seen in the emergency department who are being discharged to home. This information is to outline your options for follow-up care. We provide all patients seen in our emergency department with a follow-up referral. The need for follow-up, as well as the timing and circumstances, are variable depending upon the specifics of your emergency department visit. If you don't have a primary care physician on staff, we will provide you with a referral. We always advise you to contact your personal physician following an emergency department visit to inform them of the circumstance of the visit and for follow-up with them and/or the need for any referrals to a consulting specialist. The emergency department will also refer you to a specialist when appropriate. This referral assures that you have the opportunity for follow-up care with a specialist. All of these measure are taken in an effort to provide you with optimal care, which includes your follow-up. Under all circumstances we always encourage you to contact your private physician who remains a resource for coordinating your care. When calling for follow-up care, please make the office aware that this follow-up is from your recent emergency room visit. If for any reason you are refused follow-up, please contact the [facility] Emergency Department at and asked to speak to the emergency department charge nurse. [facility] [address] [place] [address] [facility] [address] [place] [id number] Thank you for choosing the [facility] emergency department in [place] for your medical needs today. It was a pleasure caring for you. Today you were seen in the emergency department for COPD exacerbation\\ 1. You were evaluated today on an emergent basis. You declined hospital admission. I do feel it is important that you get adequate oxygen for work, continuous 02 at all time to keep your oxygen saturation above 86%. Take the steroid as directed, continue to monitor your 02. If your symptoms should worsen, new symptoms develop or any of the signs and symptoms we discussed should arise please return to the emergency room or call 911 (if needed). 2. You can alternate Tylenol and ibuprofen as needed for pain and fever management. 3. We encourage you to follow up with your primary care provider and/or recommen ded specialist in the next few days for re-evaluation and further care/management. Sepsis Event Note (ED) - Focused Exam Vital Signs: Vital Signs Temp Pulse Resp BP Pulse Ox 01/01/21 15:18 93 20 144/69 H 87 L 01/01/21 14:04 91 L 01/01/21 14:03 90 26 H 138/72 93 L 01/01/21 13:15 93 L 01/01/21 13:10 98.2 F 102 H 18 120/74 60 L - My Orders Last 24 Hours: My Active Orders 01/01/21 13:23 EKG Documentation Completion [RC] STAT 01/01/21 14:50 Communication Order [RC] STAT - Assessment/Plan Last 24 Hours: My Active Orders 01/01/21 13:23 EKG Documentation Completion [RC] STAT 01/01/21 14:50 Communication Order [RC] STAT
[2021-01-01 13:57] LABS: BLOOD UREA NITROGEN,BUN 12 mg/dL (7.0-18.0); CARBON DIOXIDE,CO2 43.5 mmol/L (21.0-32.0); CHLORIDE,CL 99 mmol/L (98-107); GLUCOSE RANDOM 87 mg/dL (74-106); POTASSIUM,K 3.8 mmol/L (3.5-5.1); SODIUM,NA 144 mmol/L (136-145)
--- NOTE | 2021-01-01 14:22 | CR ---
HISTORY: Hypoxia. Shortness breath. TECHNIQUE: Portable frontal view the chest. COMPARISON: Chest x-ray 12/23/2020. FINDINGS: Unchanged right basilar atelectasis. No airspace consolidation. No pleural effusion or pneumothorax. Pulmonary vasculature is within normal limits. Unchanged enlarged cardiomediastinal silhouette. IMPRESSION: Right basilar atelectasis similar to prior. Dictated by Chevy Hendricks MD @ 01/01/2021 2:20:[address] Chevy Hendricks @ Jan 01 2021 2:20PM
[2021-01-01 15:19] VITALS: BP 144/69; PULSE 93
== END 2021-01-01 15:32 | disposition left against medical advice (07) ==
LOC: MW.ED 13:08
DX: J44.1 Chronic obstructive pulmonary disease with (acute) exacerbation (principal); I10 Essential (primary) hypertension; E78.00 Pure hypercholesterolemia, unspecified; E66.9 Obesity, unspecified; Z20.822 Contact with and (suspected) exposure to COVID-19; Z68.37 Body mass index [BMI] 37.0-37.9, adult; Z88.1 Allergy status to other antibiotic agents; Z88.5 Allergy status to narcotic agent; Z88.6 Allergy status to analgesic agent; Z79.82 Long term (current) use of aspirin
CPT/HCPCS: 36415; 71045; 80053; 82803; 85025; 87635; 93005; 96374; 99285; J2930; 93010; 99284; U0002

== ENCOUNTER 2021-02-21 09:53 | Inpatient (IN) | payer OTHER ==
[2021-02-21] MEDS ORDERED: Sodium Chloride 0.9% 10 ML Syringe FLUSH PRN (11:06)
[2021-02-21] MEDS ORDERED: Sodium Chloride 0.9% 2.5 ML Syringe FLUSH PRN ×2 (11:06→16:15)
[2021-02-21] MEDS ORDERED: methylPREDNISolone Sodium Succinate 125 MG/2 ML SDV IVPUSH ONE (11:07)
--- NOTE | 2021-02-21 11:09 | PCM.EKG ---
#1 Interpretation EKG Date: 02/21/21 Time: 09:51 Rhythm: NSR Rate (Beats/Min): 98 Davidson: Normal P-Wave: Present QRS: Normal ST-T: Normal QT: Normal AK/PQ Interval: 151 EKG Interpretation Comments: no acute ischemic changes
[2021-02-21 11:35] LABS: CORONAVIRUS COVID-19 NAA NEGATIVE (NEGATIVE); INFLUENZA A NAA NEGATIVE (NEGATIVE); INFLUENZA B NAA NEGATIVE (NEGATIVE)
[2021-02-21 11:41] LABS: BLOOD UREA NITROGEN,BUN 13 mg/dL (7.0-18.0); CHLORIDE,CL 99 mmol/L (98-107); GLUCOSE RANDOM 89 mg/dL (74-106); POTASSIUM,K 3.8 mmol/L (3.5-5.1); SODIUM,NA 145 mmol/L (136-145)
--- NOTE | 2021-02-21 11:45 | EDM.PDOC ---
ED HPI GENERAL MEDICAL PROBLEM - General Chief Complaint: Respiratory Problem Stated Complaint: SOB Time Seen by Provider: 02/21/21 10:45 Source of Information: Reports: Patient History Limitations: Reports: No Limitations - History of Present Illness INITIAL COMMENTS - FREE TEXT/NARRATIVE: HISTORY AND PHYSICAL: History of present illness: Patient is a 55-year-old female, with a history of COPD on 4 L chronic nasal O2 at home, who presents emergency room today with concern of worsening shortness of breath and hypoxia x2 days. Patient states that in general over the past se veral weeks she has been having issues with her COPD and states that she increased her baseline from 3 L nasal cannula to 4 L nasal cannula at home. Patient states that her goal from her provider is to be above 86% but patient states on 4 L she has been on about 80% which dropped even lower into the 70s with activity. Patient states that she just finished a prednisone pack 2 days ago and started noticing worsening symptoms yesterday. Patient states that she bumped her oxygen up to 5 L at home to maintain oxygen around 90% but came to the emergency room for further evaluation. Patient has noticed a worsening in cough. Patient states that she has been taking her typical at home COPD medications. Patient denies fever, chills, chest pain. Denies headache, neck stiff ness, change in vision, syncope, or near syncope. Denies nausea, vomiting, abdominal pain, diarrhea, constipation, or dysuria. Has not noted any blood in urine or stool. Patient has been eating and drinking appropriately. Review of systems: As per history of present illness and below otherwise all systems reviewed and negative. Past medical history: As per history of present illness and as reviewed below otherwise noncontributory. Surgical history: As per history of present illness and as reviewed below otherwise noncontributory. Social history: See social history for further information Family history: As per history of present illness and as reviewed below otherwise noncontributory. Physical exam: General: Patient is alert, oriented, and in no acute distress. Patient sitting comfortably on exam table. Patient is 90% on 5 L nasal cannula, otherwise vitally stable and reviewed by me. HEENT: Atraumatic, normocephalic, pupils equal and reactive bilaterally, negative for conjunctival pallor or scleral icterus, mucous membranes moist, TMs normal bilaterally, throat clear, neck supple, nontender, trachea midline. No drooling or trismus noted. No meningeal signs. No hot potato voice noted. Lungs: Diffuse expiratory wheezing to auscultation throughout all lung bhatt, breath sounds equal bilaterally, chest nontender. Patient speaking clearly without breathlessness, no wheezing or stridor, no accessory muscle use or respiratory distress. Heart: S1S2, regular rate and rhythm without overt murmur Abdomen: Soft, nondistended, nontender. Negative for masses or hepatosplenomegaly. Negative for costovertebral tenderness. Pelvis: Stable nontender. Genitourinary: Deferred. Rectal: Deferred. Skin: Intact, warm, dry. No lesions or rashes noted. Extremities: Atraumatic, negative for cords or calf pain. Neurovascular unremarkable. Neuro: Awake, alert, oriented. Cranial nerves II through XII unremarkable. Cerebellum unremarkable. Motor and sensory unremarkable throughout. Exam nonfocal. Notes: On chart review, patient has had multiple visits to the emergency room for COPD exacerbation. It appears that she has been given steroids, nebulizers and had improvement. Patient has been on multiple Z-Romero antibiotics and prednisone from prior visits. Specifically, patient was seen on 12/23/2020 and again on 01/01/2021 and was provided with prednisone. Patient had left the emergency room AGAINST MEDICAL ADVICE on her past 01/01/2021 visit with prednisone available to her. Patient is a 55-year-old female, with a history of COPD dependent on home oxygen, who presents emergency room today with concern of worsening shortness of breath and hypoxia x2 days. Upon arrival to the ED, patient is 90% on 5 L nasal cannula (her baseline has been increased to 4 L nasal cannula at home), otherwise patient is vitally stable and reviewed by me. Patient does have diffuse wheezing throughout all lung bhatt on exam. Will obtain cardiac evaluation, provide a dose of Solu-Medrol, and duo nebs, and reassess patient. See Dr. Dow's dictation for specific EKG interpretation. However, normal sinus rhythm without STEMI. CBC mild derangements unremarkable. CMP shows elevation of carbon dioxide at 49.9, otherwise mild derangements unremarkable. COVID-19 negative. Influenza negative. Troponin negative. Chest x-ray shows new streaky opacity in the left lung base may represent atelectasis or infiltrate. Angiography CT chest is negative for acute pulmonary embolism. Enlargement of the central pulmonary arteries can be seen with pulmonary hypertension. Consolidation in the right lower lobe suspicious for pneumonia. Additional areas of consolidation in the left lower lobe and lingula may represent atelectasis or infiltrate. 2 stable noncalcified pulmonary nodules measuring up to 5 mm. Subacute healing nondisplaced fractures of the left anterior fourth through eighth ribs. All incidental findings of imaging and lab work today discussed with patient and the importance to have this followed up with a primary care provider. Upon reevaluation of patient, she has improvement of her symptoms with therapeutics today in the emergency room and is currently on 6 L nasal cannula satting from 86 to 90%. Patient does periodically drop down to 80% with standing up and movement but appears comfortable during this and does not have any signs of acute respiratory distress. I did call and speak to the hospitalist on-call, Dr. Fox, and thoroughly discussed patient's case. Will admit to inpatient to Dr. Fox on telemetry Voices understanding and is agreeable to plan of care. Denies any further questions or concerns at this time. Diagnostics: EKG, CBC, CMP, chest x-ray two-view, troponin, D-dimer, COVID/Flu Therapeutics: Saline lock, Duo neb, Solumedrol, Azithromycin Impression: Community-acquired pneumonia with hypoxia COPD exacerbation with hypoxia Plan: Admit to inpatient to Dr. Fox on telemetry Definitive disposition and diagnosis as appropriate pending reevaluation and review of above. - Related Data Allergies Allergy/AdvReac Type Severity Reaction Status Date / Time cephalexin [From Keflex] Allergy Hives Verified 02/21/21 10:53 diclofenac Allergy Rash Verified 02/21/21 10:53 oxycodone [From Percocet] Allergy Rash Verified 02/21/21 10:53 Home Meds: Home Meds Albuterol Sulfate 2.5 mg NEB Q4H PRN 12/05/19 [History] Cholecalciferol (Vitamin D3) [Vitamin D3] 25 mcg PO DAILY 12/05/19 [History] Multivitamin [Multi-Vitamin Daily] 1 tab PO DAILY 12/05/19 [History] lisinopriL [Lisinopril] 10 mg PO DAILY 12/05/19 [History] Albuterol [Ventolin HFA] 2 inh INH Q4H PRN 08/06/20 [History] Fluticasone/Umeclidin/Vilanter [Trelegy Ellipta 100-62.5-25 MCG] 1 puff INH DAILY 08/06/20 [History] Furosemide [Lasix] 40 mg PO DAILY 08/06/20 [History] Aspirin [Halfprin] 81 mg PO DAILY 12/04/20 [History] Melatonin 5 mg PO BEDTIME 12/04/20 [History] Nicotine [Nicotine Patch] 21 mg TD DAILY 12/04/20 [History] predniSONE [Prednisone] 10 - 40 mg PO DAILY #30 tablet 12/05/20 [Rx] Albuterol/Ipratropium [DuoNeb 3.0-0.5 MG/3 ML] 3 ml .XX TID 4 Days #12 neb 12/23/20 [Rx] Azithromycin [Zithromax] 250 mg PO DAILY 5 Days #6 tablet 12/23/20 [Rx] predniSONE 10 mg PO .TAPER 7 Days #22 tab 12/23/20 [Rx] predniSONE 1 dose PO DAILY 12 Days #30 tab 01/01/21 [Rx] Past Medical History HEENT 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: Other (See Below) Other HEENT History: sinus issues Cardiovascular 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: High Cholesterol, Hypertension Respiratory 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: Bronchitis, Recurrent, COPD, Sleep Apnea Gastrointestinal 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: None Genitourinary 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: 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: Musculoskeletal 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: Back Pain, Chronic Neurological 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: None Psychiatric 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: None Endocrine/Metabolic 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: Obesity/BMI 30+ Hematologic 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: None Immunologic 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: None Oncologic (Cancer) 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: None Dermatologic 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: None - Infectious Disease History Infectious Disease History: Reports: Chicken Pox - Past Surgical History Head Surgeries/Procedures: Reports: None HEENT Surgical History: Reports: Tonsillectomy Cardiovascular Surgical History: Reports: None Respiratory Surgical History: Reports: None GI Surgical History: Reports: Cholecystectomy Female Surgical History: Reports: Tubal Ligation Endocrine Surgical History: Reports: None Musculoskeletal Surgical History: Reports: Other (See Below) Other Musculoskeletal Surgeries/Procedures:: Left arm surgery Social & Family History - Family History Family Medical History: No Pertinent Family History - Tobacco Use Tobacco Use Status *Q: Never Tobacco User - Caffeine Use Caffeine Use: Reports: None Caffeine Use Comment: seldom drinks energy drinks - Recreational Drug Use Recreational Drug Use: No - Living Situation & Occupation Occupation: Employed ED ROS GENERAL - Review of Systems Review Of Systems: Comprehensive ROS is negative, except as noted in HPI. ED EXAM, GENERAL - Physical Exam Exam: See Below (see dictation) Course - Vital Signs Last Recorded V/S: Last Vital Signs Temp 98.2 F 02/21/21 10:21 Pulse 99 02/21/21 16:29 Resp 18 02/21/21 16:29 BP 121/73 02/21/21 16:29 Pulse Ox 89 L 02/21/21 16:29 - Orders/Labs/Meds Orders: Active Orders 24 hr Category Date Time Status Admission Status [Patient Status] [ADT] Stat ADT 02/21/21 15:44 Active Azithromycin [Zithromax] 500 mg Med 02/21/21 15:45 Active Sodium Chloride 0.9% [Normal Saline (AdvBag)] 250 ml IV ONETIME Isolation [COMM] Routine Oth 02/21/21 10:04 Active Medication Orders Acetaminophen (Acetaminophen 325 Mg Tab) 650 mg PO Q4H PRN PRN Reason: Pain (Mild 1-3)/fever Albuterol (Albuterol 0.083% 2.5 Mg/3 Ml Neb Soln) 2.5 mg NEB Q4H PRN PRN Reason: Shortness of Breath Albuterol/Ipratropium (Albuterol/Ipratropium 3.0-0.5 Mg/3 Ml Neb Soln) 3 ml NEB Q4HRRT KOLE Aspirin (Aspirin 81 Mg Tab.Ec) 81 mg PO DAILY KOLE Enoxaparin Sodium (Enoxaparin 40 Mg/0.4 Ml Syringe) 40 mg SUBCUT Q24H KOLE Furosemide (Furosemide 40 Mg Tab) 40 mg PO DAILY KOLE Azithromycin 500 mg/ Sodium (Chloride) 250 mls @ 250 mls/hr IV ONETIME KOLE Last Admin: 02/21/21 15:59 Dose: 250 mls/hr Documented by: KOLEOLAReva Levofloxacin/Dextrose 750 mg/ (Premix) 150 mls @ 100 mls/hr IV Q24H KOLE Lisinopril (Lisinopril 10 Mg Tab) 10 mg PO DAILY KOLE Methylprednisolone Sodium Succinate (Methylprednisolone Sodium Succinate 40 Mg/1 Ml Sdv) 40 mg IVPUSH Q8H KOLE Multivitamins/Minerals/Vitamin C (Multivitamin Tab) 1 tab PO DAILY KOLE Ondansetron HCl (Ondansetron 4 Mg/2 Ml Sdv) 4 mg IVPUSH Q4H PRN PRN Reason: Nausea Fluticasone/Umeclidin/Vilanter [ Trelegy Ellipta 100- 62.5- 1 each INH DAILY KOLE Melatonin [Melatonin (] 5 Mg Tablet) 1 each PO BEDTIME KOLE Sodium Chloride (Sodium Chloride 0.9% 2.5 Ml Syringe) 2.5 ml FLUSH ASDIRECTED PRN PRN Reason: Keep Vein Open Labs: Laboratory Tests 02/21/21 02/21/21 02/21/21 Range/Units 10:29 10:29 10:29 WBC 8.59 (4.0-11.0) K/uL RBC 4.42 (4.30-5.90) M/uL Hgb 14.1 (12.0-16.0) g/dL Hct 45.9 (36.0-46.0) % MCV 103.8 H (80.0-98.0) fL MCH 31.9 (27.0-32.0) pg MCHC 30.7 L (31.0-37.0) g/dL RDW Std Deviation 57.0 (28.0-62.0) fl RDW Coeff of Vera 15 (11.0-15.0) % Plt Count 212 (150-400) K/uL MPV 11.30 (7.40-12.00) fL Neut % (Auto) 77.4 (48.0-80.0) % Lymph % (Auto) 14.4 L (16.0-40.0) % [place] % (Auto) 7.1 (0.0-15.0) % Eos % (Auto) 0.9 (0.0-7.0) % Baso % (Auto) 0.2 (0.0-1.5) % Neut # (Auto) 6.6 H (1.4-5.7) K/uL Lymph # (Auto) 1.2 (0.6-2.4) K/uL [place] # (Auto) 0.6 (0.0-0.8) K/uL Eos # (Auto) 0.1 (0.0-0.7) K/uL Baso # (Auto) 0.0 (0.0-0.1) K/uL Nucleated RBC % 0.0 /100WBC Nucleated RBCs # 0 K/uL D-Dimer, Quantitative 0.66 H (0.0-0.50) mg/L FEU Sodium 145 (136-145) mmol/L Potassium 3.8 (3.5-5.1) mmol/L Chloride 99 (98-107) mmol/L Carbon Dioxide 49.9 H (21.0-32.0) mmol/L BUN 13 (7.0-18.0) mg/dL Creatinine 0.6 (0.6-1.0) mg/dL Est Cr Clr Drug Dosing 101.51 mL/min Estimated GFR (MDRD) > 60.0 ml/min Glucose 89 (74-106) mg/dL Calcium 8.2 L (8.5-10.1) mg/dL Total Bilirubin 0.3 (0.2-1.0) mg/dL AST 19 (15-37) IU/L ALT 25 (14-63) IU/L Alkaline Phosphatase 113 (46-116) U/L Troponin I < 0.050 (0.000-0.056) ng/mL Total Protein 6.1 L (6.4-8.2) g/dL Albumin 3.1 L (3.4-5.0) g/dL Globulin 3.0 (2.6-4.0) g/dL Albumin/Globulin Ratio 1.0 (0.9-1.6) Influenza Type A RNA (NEGATIVE) Influenza Type B RNA (NEGATIVE) SARS-CoV-2 RNA (RUBIN) (NEGATIVE) 02/21/21 Range/Units 10:53 WBC (4.0-11.0) K/uL RBC (4.30-5.90) M/uL Hgb (12.0-16.0) g/dL Hct (36.0-46.0) % MCV (80.0-98.0) fL MCH (27.0-32.0) pg MCHC (31.0-37.0) g/dL RDW Std Deviation (28.0-62.0) fl RDW Coeff of Vera (11.0-15.0) % Plt Count (150-400) K/uL MPV (7.40-12.00) fL Neut % (Auto) (48.0-80.0) % Lymph % (Auto) (16.0-40.0) % [place] % (Auto) (0.0-15.0) % Eos % (Auto) (0.0-7.0) % Baso % (Auto) (0.0-1.5) % Neut # (Auto) (1.4-5.7) K/uL Lymph # (Auto) (0.6-2.4) K/uL [place] # (Auto) (0.0-0.8) K/uL Eos # (Auto) (0.0-0.7) K/uL Baso # (Auto) (0.0-0.1) K/uL Nucleated RBC % /100WBC Nucleated RBCs # K/uL D-Dimer, Quantitative (0.0-0.50) mg/L FEU Sodium (136-145) mmol/L Potassium (3.5-5.1) mmol/L Chloride (98-107) mmol/L Carbon Dioxide (21.0-32.0) mmol/L BUN (7.0-18.0) mg/dL Creatinine (0.6-1.0) mg/dL Est Cr Clr Drug Dosing mL/min Estimated GFR (MDRD) ml/min Glucose (74-106) mg/dL Calcium (8.5-10.1) mg/dL Total Bilirubin (0.2-1.0) mg/dL AST (15-37) IU/L ALT (14-63) IU/L Alkaline Phosphatase (46-116) U/L Troponin I (0.000-0.056) ng/mL Total Protein (6.4-8.2) g/dL Albumin (3.4-5.0) g/dL Globulin (2.6-4.0) g/dL Albumin/Globulin Ratio (0.9-1.6) Influenza Type A RNA NEGATIVE (NEGATIVE) Influenza Type B RNA NEGATIVE (NEGATIVE) SARS-CoV-2 RNA (RUBIN) NEGATIVE (NEGATIVE) Meds: Medications Generic Name Dose Route Start Last Admin Trade Name Freq PRN Reason Stop Dose Admin Acetaminophen 650 mg 02/21/21 16:15 Acetaminophen 325 Mg Tab PO Q4H PRN Pain (Mild 1-3)/fever Albuterol 2.5 mg 02/21/21 16:20 Albuterol 0.083% 2.5 Mg/3 Ml Neb Soln NEB Q4H PRN Shortness of Breath Albuterol/Ipratropium 3 ml 02/21/21 18:00 Albuterol/Ipratropium 3.0-0.5 Mg/3 Ml Neb Soln NEB Q4HRRT [facility] Aspirin 81 mg 02/22/21 09:00 Aspirin 81 Mg Tab.Ec PO DAILY [facility] Enoxaparin Sodium 40 mg 02/21/21 16:15 Enoxaparin 40 Mg/0.4 Ml Syringe SUBCUT Q24H KOLE Furosemide 40 mg 02/22/21 09:00 Furosemide 40 Mg Tab PO DAILY [facility] Azithromycin 500 mg/ Sodium 250 mls @ 250 mls/hr 02/21/21 15:45 02/21/21 15:59 Chloride IV 250 mls/hr ONETIME [facility] Administration Levofloxacin/Dextrose 750 mg/ 150 mls @ 100 mls/hr 02/21/21 16:30 Premix IV Q24H [facility] Lisinopril 10 mg 02/22/21 09:00 Lisinopril 10 Mg Tab PO DAILY [facility] Methylprednisolone Sodium Succinate 40 mg 02/21/21 22:00 Methylprednisolone Sodium Succinate 40 Mg/1 Ml Sdv IVPUSH Q8H KOLE Multivitamins/Minerals/Vitamin C 1 tab 02/22/21 09:00 Multivitamin Tab PO DAILY [facility] Ondansetron HCl 4 mg 02/21/21 16:15 Ondansetron 4 Mg/2 Ml Sdv IVPUSH Q4H PRN Nausea Fluticasone/ 1 each 02/22/21 09:00 Umeclidin/Vilanter [ INH Trelegy Ellipta 100- DAILY KOLE 62.5- Melatonin [Melatonin 1 each 02/21/21 21:00 ] 5 Mg Tablet PO BEDTIME KOLE Sodium Chloride 2.5 ml 02/21/21 16:15 Sodium Chloride 0.9% 2.5 Ml Syringe FLUSH ASDIRECTED PRN Keep Vein Open Discontinued Medications Generic Name Dose Route Start Last Admin Trade Name Freq PRN Reason Stop Dose Admin Albuterol/Ipratropium 3 ml 02/21/21 12:00 02/21/21 12:17 Albuterol/Ipratropium 3.0-0.5 Mg/3 Ml Neb Soln NEB 02/21/21 12:01 3 ml ONETIME ONE Administration Methylprednisolone Sodium Succinate 125 mg 02/21/21 11:07 02/21/21 11:19 Methylprednisolone Sodium Succinate 125 Mg/2 Ml Sdv IVPUSH 02/21/21 11:08 125 mg ONETIME ONE Administration Sodium Chloride 10 ml 02/21/21 11:06 02/21/21 11:19 Sodium Chloride 0.9% 10 Ml Syringe FLUSH 10 ml ASDIRECTED PRN Administration Keep Vein Open Sodium Chloride 2.5 ml 02/21/21 11:06 02/21/21 11:19 Sodium Chloride 0.9% 2.5 Ml Syringe FLUSH 2.5 ml ASDIRECTED PRN Administration Keep Vein Open Departure - Departure Time of Disposition: 17:24 Disposition: Admitted As Inpatient 66 Clinical Impression: COPD exacerbation, Hypoxia Community acquired pneumonia Qualifiers: Laterality: right Lung location: lower lobe of lung Qualified Code(s): J18.9 - Pneumonia, unspecified organism - Discharge Information Sepsis Event Note (ED) - Focused Exam Vital Signs: Vital Signs Temp Pulse Resp BP Pulse Ox 02/21/21 15:48 87 20 122/61 89 L 02/21/21 13:20 85 18 110/59 L 93 L 02/21/21 12:20 82 20 112/64 95 02/21/21 11:58 83 18 106/58 L 90 L 02/21/21 10:21 98.2 F 90 17 122/74 90 L - My Orders Last 24 Hours: My Active Orders 02/21/21 10:04 Isolation [COMM] Routine 02/21/21 15:44 Admission Status [Patient Status] [ADT] Stat 02/21/21 15:45 Azithromycin [Zithromax] 500 mg Sodium Chloride 0.9% [Normal Saline (AdvBag)] 250 ml IV ONETIME - Assessment/Plan Last 24 Hours: My Active Orders 02/21/21 10:04 Isolation [COMM] Routine 02/21/21 15:44 Admission Status [Patient Status] [ADT] Stat 02/21/21 15:45 Azithromycin [Zithromax] 500 mg Sodium Chloride 0.9% [Normal Saline (AdvBag)] 250 ml IV ONETIME
[2021-02-21] MEDS ORDERED: Albuterol/Ipratropium 3.0-0.5 MG/3 ML Neb Soln NEB ONE (12:00)
[2021-02-21 12:01] LABS: CARBON DIOXIDE,CO2 49.9 mmol/L (21.0-32.0)
--- NOTE | 2021-02-21 12:02 | CR ---
INDICATION: Shortness of breath. TECHNIQUE: Chest 2 views. COMPARISON: Chest radiograph 01/01/2021. FINDINGS: Stable right basilar atelectasis. New streaky opacity in the left lung base may represent atelectasis or infiltrate. No pleural effusion or pneumothorax. Normal heart size and pulmonary vascularity. Surgical clips upper abdomen. The bones are unremarkable. IMPRESSION: New streaky opacity in the left lung base may represent atelectasis or infiltrate. Dictated by Dasia Vicente MD @ 02/21/2021 12:01:24 PM (Electronically Signed)
--- NOTE | 2021-02-21 15:12 | CT ---
INDICATION: Shortness of breath, hypoxia. COMPARISON: Chest radiograph 02/21/2021. CT chest 12/03/2020. TECHNIQUE: CT of the chest with 100 cc of Isovue 370 IV contrast. Coronal and sagittal reconstructions. 3D post processing was performed. FINDINGS: Normal heart size. Normal caliber thoracic aorta median mild enlargement of the central pulmonary arteries, with the main pulmonary artery measuring 3.7 cm. Negative for acute pulmonary embolism. Stable small pericardial effusion. Again seen are multiple prominent and borderline enlarged mediastinal and bilateral hilar lymph nodes, greater on the right. These may be reactive. Consolidation in the right lower lobe suspicious for pneumonia. Additional areas of consolidation in the left lower lobe and lingula may represent atelectasis or infiltrate. Streaky atelectasis in the right middle lobe. Ground-glass opacity in the posterior left upper lobe along the fissure. No pleural effusion or pneumothorax. Moderate upper lobe predominant emphysema. Stable 5 mm noncalcified pulmonary nodule in the anterior right upper lobe (series 402, image 80). Calcified granuloma right middle lobe. Stable 4 mm noncalcified pulmonary nodule in the lateral left upper lobe (image 85). No central endobronchial lesion. Mild diffuse bronchial wall thickening. The thyroid gland is normal in appearance. Cholecystectomy. The visualized upper abdomen is otherwise unremarkable. Mild endplate spurring in the mid and lower thoracic spine. Subacute healing nondisplaced fractures of the left anterior 4th-8th ribs. IMPRESSION: 1. Negative for acute pulmonary embolism. 2. Enlargement of the central pulmonary arteries can be seen with pulmonary hypertension. 3. Consolidation in the right lower lobe suspicious for pneumonia. Additional areas of consolidation in the left lower lobe and lingula may represent atelectasis or infiltrate. 4. Two stable noncalcified pulmonary nodules measuring up to 5 mm. Please see follow-up guidelines below. 5. Subacute healing nondisplaced fractures of the left anterior 4th-8th ribs. [employer] GUID[employer] - SOLID NODULES: : MULTIPLE LOW RISK - nodule less than 6 mm: No routine follow-up. - nodule 6-8 mm: CT at 3-6 months, then consider CT at 18-24 months. - nodule greater than 8 mm: CT at 3-6 months, then consider CT at 18-24 months. MULTIPLE HIGH RISK - nodule less than 6 mm: Optional CT at 12 months. - nodule 6-8 mm: CT at 3-6 months, then at 18-24 months. - nodule greater than 8 mm: CT at 3-6 months, then at 18-24 months. Please note that all CT scans at this facility use dose modulation, iterative reconstruction, and/or weight-based dosing when appropriate to reduce radiation dose to as low as reasonably achievable. Dictated by Dasia Vicente MD @ 02/21/2021 3:11:42 PM (Electronically Signed)
[2021-02-21] MEDS ORDERED: Azithromycin 500 MG in Sodium Chloride 0.9% 250 ML IV SCH (15:45)
[2021-02-21] MEDS ORDERED: Ondansetron 4 MG/2 ML SDV IVPUSH PRN (16:15)
[2021-02-21] MEDS ORDERED: Acetaminophen 325 MG Tab PO PRN (16:15)
[2021-02-21] MEDS ORDERED: Albuterol 0.083% 2.5 MG/3 ML Neb Soln NEB PRN (16:20)
[2021-02-21] MEDS ORDERED: Iopamidol 755 MG/ML 500 ML Multipack Bottle IVPUSH STA (17:29)
[2021-02-21] MEDS: Albuterol/Ipratropium 3.0-0.5 MG/3 ML Neb Soln NEB SCH ×2 (17:35→23:21)
[2021-02-21] MEDS: Levofloxacin/Dextrose 5%-Water 750 MG in Premix Bag 1 BAG IV SCH (18:28)
--- NOTE | 2021-02-21 19:04 | PCM.HP.2 ---
H&P History of Present Illness - General Date of Service: 02/21/21 Admit Problem/Dx: Admission Diagnosis/Problem Admission Diagnosis/Problem Pneumonia - History of Present Illness Initial Comments - Free Text/Narative: Patient is a 55-year-old female, with a history of COPD on 4 L chronic nasal O2 at home, who presents emergency room today with concern of worsening shortness of breath and hypoxia x2 days. Patient has been requring incfreased oxygen at home from her basline fo Patient states that her goal from her provider is to be above 86% but patient states on 4 L she has been on about 80% which dropped even lower into the 70s with activity. Patient states that she just finished a prednisone pack 2 days ago and started noticing worsening symptoms yesterday. Patient states that she bumped her oxygen up to 5 L at home to maintain oxygen around 90% but came to the emergency room for further evaluation. Patient has noticed a worsening in cough. Patient states that she has been taking her typical at home COPD medications. EKG performed to the ER showed normal sinus rhythm without STEMI. CBC mild derangements unremarkable. CMP showed elevation of carbon dioxide at 49.9, otherwise mild derangements unremarkable. COVID-19 negative. Influenza negative. Troponin negative. Chest x-ray showed new streaky opacity in the left lung base may represent atelectasis or infiltrate. Angiography CT chest is negative for acute pulmonary embolism. Enlargement of the central pulmonary arteries can be seen with pulmonary hypertension. Consolidation in the right lower lobe suspicious for pneumonia. Additional areas of consolidation in the left lower lobe and lingula may represent atelectasis or infiltrate. 2 stable noncalcified pulmonary nodules measuring up to 5 mm. Subacute healing nondisplaced fractures of the left anterior fourth through eighth ribs. Patient does state that she suffered a mechanical fall last week when she caught her foot in some weight in the garden and fell straight on her chest since then she has been having pain in the left side of her rib cage. Patient continues to need higher level of oxygen than her baseline hence was admitted to the hospital for further management of possible pneumonia plus COPD exacerbation - Related Data Allergies/Adverse Reactions: Allergies Allergy/AdvReac Type Severity Reaction Status Date / Time cephalexin [From Keflex] Allergy Hives Verified 02/21/21 10:53 diclofenac Allergy Rash Verified 02/21/21 10:53 oxycodone [From Percocet] Allergy Rash Verified 02/21/21 10:53 Home Medications: Home Meds Albuterol Sulfate 2.5 mg NEB Q4H PRN 12/05/19 [History] Cholecalciferol (Vitamin D3) [Vitamin D3] 25 mcg PO DAILY 12/05/19 [History] Multivitamin [Multi-Vitamin Daily] 1 tab PO DAILY 12/05/19 [History] lisinopriL [Lisinopril] 10 mg PO DAILY 12/05/19 [History] Albuterol [Ventolin HFA] 2 inh INH Q4H PRN 08/06/20 [History] Fluticasone/Umeclidin/Vilanter [Trelegy Ellipta 100-62.5-25 MCG] 1 puff INH DAILY 08/06/20 [History] Furosemide [Lasix] 40 mg PO DAILY 08/06/20 [History] Aspirin [Halfprin] 81 mg PO DAILY 12/04/20 [History] Melatonin 5 mg PO BEDTIME 12/04/20 [History] Nicotine [Nicotine Patch] 21 mg TD DAILY 12/04/20 [History] predniSONE [Prednisone] 10 - 40 mg PO DAILY #30 tablet 12/05/20 [Rx] Albuterol/Ipratropium [DuoNeb 3.0-0.5 MG/3 ML] 3 ml .XX TID 4 Days #12 neb 12/23/20 [Rx] Azithromycin [Zithromax] 250 mg PO DAILY 5 Days #6 tablet 12/23/20 [Rx] predniSONE 10 mg PO .TAPER 7 Days #22 tab 12/23/20 [Rx] predniSONE 1 dose PO DAILY 12 Days #30 tab 01/01/21 [Rx] Budesonide/Formoterol [Symbicort 160-4.5 MCG] 1 puff INH BID 02/21/21 [History] Past Medical History HEENT History: Reports: Other (See Below) Other HEENT History: sinus issues Cardiovascular History: Reports: High Cholesterol, Hypertension Respiratory History: Reports: Bronchitis, Recurrent, COPD, Sleep Apnea Gastrointestinal History: Reports: None Genitourinary History: Reports: None 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: Musculoskeletal History: Reports: Back Pain, Chronic Neurological History: Reports: None Psychiatric History: Reports: None Endocrine/Metabolic History: Reports: Obesity/BMI 30+ Hematologic History: Reports: None Immunologic History: Reports: None Oncologic (Cancer) History: Reports: None Dermatologic History: Reports: None - Infectious Disease History Infectious Disease History: Reports: Chicken Pox - Past Surgical History Head Surgeries/Procedures: Reports: None HEENT Surgical History: Reports: Tonsillectomy Cardiovascular Surgical History: Reports: None Respiratory Surgical History: Reports: None GI Surgical History: Reports: Cholecystectomy Female Surgical History: Reports: Tubal Ligation Endocrine Surgical History: Reports: None Musculoskeletal Surgical History: Reports: Other (See Below) Other Musculoskeletal Surgeries/Procedures:: Left arm surgery Social & Family History - Family History Family Medical History: No Pertinent Family History - Tobacco Use Tobacco Use Status *Q: Never Tobacco User - Caffeine Use Caffeine Use: Reports: None Caffeine Use Comment: seldom drinks energy drinks - Recreational Drug Use Recreational Drug Use: No - Living Situation & Occupation Occupation: Employed H&P Review of Systems - Review of Systems: Review Of Systems: See Below General: Denies: Fever, Chills, Malaise Pulmonary: Reports: Shortness of Breath, Cough, Sputum. Denies: Wheezing, Pleuritic Chest Pain Cardiovascular: Reports: Dyspnea on Exertion. Denies: Chest Pain, Orthopnea Gastrointestinal: Denies: Abdominal Pain, Anorexia, Black Stool, Bloody Stool Genitourinary: Denies: Dysuria, Frequency, Burning Musculoskeletal: Denies: Neck Pain, Shoulder Pain, Arm Pain, Back Pain Skin: Denies: Cyanosis, Jaundice, Mottled, Pallor Psychiatric: Denies: Confusion, Depression, Mood Lability Exam - Exam Exam: See Below - Vital Signs Vital Signs: Last Vital Signs Temp 36.2 C 02/21/21 17:00 Pulse 100 02/21/21 17:00 Resp 19 02/21/21 17:00 BP 109/54 L 02/21/21 17:00 Pulse Ox 88 L 02/21/21 17:00 Weight: 106.594 kg - Exam Quality Assessment: Supplemental Oxygen General: Alert, Oriented, Cooperative, Mild Distress Neck: Supple, Trachea Midline Lungs: Decreased Breath Sounds, Crackles, Rales. No: Wheezing Cardiovascular: Regular Rate, Regular Rhythm GI/Abdominal Exam: Normal Bowel Sounds, Soft, Non-Tender Extremities: Normal Inspection, Normal Range of Motion - Patient Data Lab Results Last 24 hrs: Laboratory Results - last 24 hr 02/21/21 02/21/21 02/21/21 Range/Units 10:29 10:29 10:29 WBC 8.59 (4.0-11.0) K/uL RBC 4.42 (4.30-5.90) M/uL Hgb 14.1 (12.0-16.0) g/dL Hct 45.9 (36.0-46.0) % MCV 103.8 H (80.0-98.0) fL MCH 31.9 (27.0-32.0) pg MCHC 30.7 L (31.0-37.0) g/dL RDW Std Deviation 57.0 (28.0-62.0) fl RDW Coeff of Vera 15 (11.0-15.0) % Plt Count 212 (150-400) K/uL MPV 11.30 (7.40-12.00) fL Neut % (Auto) 77.4 (48.0-80.0) % Lymph % (Auto) 14.4 L (16.0-40.0) % Simpson % (Auto) 7.1 (0.0-15.0) % Eos % (Auto) 0.9 (0.0-7.0) % Baso % (Auto) 0.2 (0.0-1.5) % Neut # (Auto) 6.6 H (1.4-5.7) K/uL Lymph # (Auto) 1.2 (0.6-2.4) K/uL Simpson # (Auto) 0.6 (0.0-0.8) K/uL Eos # (Auto) 0.1 (0.0-0.7) K/uL Baso # (Auto) 0.0 (0.0-0.1) K/uL Nucleated RBC % 0.0 /100WBC Nucleated RBCs # 0 K/uL D-Dimer, Quantitative 0.66 H (0.0-0.50) mg/L FEU Sodium 145 (136-145) mmol/L Potassium 3.8 (3.5-5.1) mmol/L Chloride 99 (98-107) mmol/L Carbon Dioxide 49.9 H (21.0-32.0) mmol/L BUN 13 (7.0-18.0) mg/dL Creatinine 0.6 (0.6-1.0) mg/dL Est Cr Clr Drug Dosing 101.51 mL/min Estimated GFR (MDRD) > 60.0 ml/min Glucose 89 (74-106) mg/dL Calcium 8.2 L (8.5-10.1) mg/dL Total Bilirubin 0.3 (0.2-1.0) mg/dL AST 19 (15-37) IU/L ALT 25 (14-63) IU/L Alkaline Phosphatase 113 (46-116) U/L Troponin I < 0.050 (0.000-0.056) ng/mL Total Protein 6.1 L (6.4-8.2) g/dL Albumin 3.1 L (3.4-5.0) g/dL Globulin 3.0 (2.6-4.0) g/dL Albumin/Globulin Ratio 1.0 (0.9-1.6) Influenza Type A RNA (NEGATIVE) Influenza Type B RNA (NEGATIVE) SARS-CoV-2 RNA (RUBIN) (NEGATIVE) 02/21/21 Range/Units 10:53 WBC (4.0-11.0) K/uL RBC (4.30-5.90) M/uL Hgb (12.0-16.0) g/dL Hct (36.0-46.0) % MCV (80.0-98.0) fL MCH (27.0-32.0) pg MCHC (31.0-37.0) g/dL RDW Std Deviation (28.0-62.0) fl RDW Coeff of Vera (11.0-15.0) % Plt Count (150-400) K/uL MPV (7.40-12.00) fL Neut % (Auto) (48.0-80.0) % Lymph % (Auto) (16.0-40.0) % Simpson % (Auto) (0.0-15.0) % Eos % (Auto) (0.0-7.0) % Baso % (Auto) (0.0-1.5) % Neut # (Auto) (1.4-5.7) K/uL Lymph # (Auto) (0.6-2.4) K/uL Simpson # (Auto) (0.0-0.8) K/uL Eos # (Auto) (0.0-0.7) K/uL Baso # (Auto) (0.0-0.1) K/uL Nucleated RBC % /100WBC Nucleated RBCs # K/uL D-Dimer, Quantitative (0.0-0.50) mg/L FEU Sodium (136-145) mmol/L Potassium (3.5-5.1) mmol/L Chloride (98-107) mmol/L Carbon Dioxide (21.0-32.0) mmol/L BUN (7.0-18.0) mg/dL Creatinine (0.6-1.0) mg/dL Est Cr Clr Drug Dosing mL/min Estimated GFR (MDRD) ml/min Glucose (74-106) mg/dL Calcium (8.5-10.1) mg/dL Total Bilirubin (0.2-1.0) mg/dL AST (15-37) IU/L ALT (14-63) IU/L Alkaline Phosphatase (46-116) U/L Troponin I (0.000-0.056) ng/mL Total Protein (6.4-8.2) g/dL Albumin (3.4-5.0) g/dL Globulin (2.6-4.0) g/dL Albumin/Globulin Ratio (0.9-1.6) Influenza Type A RNA NEGATIVE (NEGATIVE) Influenza Type B RNA NEGATIVE (NEGATIVE) SARS-CoV-2 RNA (RUBIN) NEGATIVE (NEGATIVE) Result Diagrams: 02/21/21 10:29 02/21/21 10:29 Sepsis Event Note - Evaluation Sepsis Screening Result: Possible Sepsis Risk - Focused Exam Vital Signs: Vital Signs Temp Pulse Resp BP Pulse Ox 02/21/21 17:00 36.2 C 100 19 109/54 L 88 L 02/21/21 16:29 99 18 121/73 89 L 02/21/21 15:48 87 20 122/61 89 L 02/21/21 13:20 85 18 110/59 L 93 L 02/21/21 12:20 82 20 112/64 95 02/21/21 11:58 83 18 106/58 L 90 L 02/21/21 10:21 36.8 C 90 17 122/74 90 L - Problem List (1) Community acquired pneumonia SNOMED Code(s): 144607461 ICD Code: J18.9 - PNEUMONIA, UNSPECIFIED ORGANISM Status: Acute Current Visit: Yes Qualifiers: Laterality: right Lung location: lower lobe of lung Qualified Code(s): J18.9 - Pneumonia, unspecified organism (2) Hypoxia SNOMED Code(s): 126318244 ICD Code: R09.02 - HYPOXEMIA Status: Acute Current Visit: Yes (3) Acute on chronic respiratory failure with hypoxia and hypercapnia SNOMED Code(s): 25911360387519 ICD Code: J96.21 - ACUTE AND CHRONIC RESPIRATORY FAILURE WITH HYPOXIA; J96.22 - ACUTE AND CHRONIC RESPIRATORY FAILURE WITH HYPERCAPNIA Status: Acute Current Visit: No (4) CHF (congestive heart failure) SNOMED Code(s): 77699771 ICD Code: I50.9 - HEART FAILURE, UNSPECIFIED Status: Acute Current Visit: No (5) HLD (hyperlipidemia) SNOMED Code(s): 75185417 ICD Code: E78.5 - HYPERLIPIDEMIA, UNSPECIFIED Status: Chronic Current Visit: No (6) HTN (hypertension) SNOMED Code(s): 04816584 ICD Code: I10 - ESSENTIAL (PRIMARY) HYPERTENSION Status: Chronic Current Visit: No Qualifiers: Hypertension type: essential hypertension Qualified Code(s): I10 - Essential (primary) hypertension (7) Obesity SNOMED Code(s): 902290727, 381162342 ICD Code: E66.9 - OBESITY, UNSPECIFIED Status: Chronic Current Visit: No (8) Oxygen dependent SNOMED Code(s): 319919058035 ICD Code: Z99.81 - DEPENDENCE ON SUPPLEMENTAL OXYGEN Status: Chronic Current Visit: No (9) COPD (chronic obstructive pulmonary disease) SNOMED Code(s): 70987792 ICD Code: J44.9 - CHRONIC OBSTRUCTIVE PULMONARY DISEASE, UNSPECIFIED Status: Acute Current Visit: Yes Problem List Initiated/Reviewed/Updated: Yes Orders Last 24hrs: Active Orders 24 hr Category Date Time Status Admission Status [Patient Status] [ADT] Stat ADT 02/21/21 15:44 Active IS (RT) [RT Incentive Spirometry] [RC] Q1HWA Care 02/21/21 16:20 Active Intake and Output [RC] QSHIFT Care 02/21/21 16:15 Active Oxygen Therapy [RC] PRN Care 02/21/21 16:15 Active RT Aerosol Therapy [RC] ASDIRECTED Care 02/21/21 16:18 Active Telemetry Monitoring [Cardiac Monitoring] [RC] . Care 02/21/21 16:25 Active DIRECTED Up With Assistance [RC] ASDIRECTED Care 02/21/21 16:15 Active VTE/DVT Education [RC] PER UNIT ROUTINE Care 02/21/21 16:15 Active Vital Signs [RC] Q4H Care 02/21/21 16:15 Active Regular Diet [DIET] Diet 02/21/21 Dinner Active BASIC METABOLIC PANEL,BMP [CHEM] AM Lab 02/22/21 05:11 Ordered CBC WITH AUTO DIFF [HEME] AM Lab 02/22/21 05:11 Ordered MAGNESIUM [CHEM] AM Lab 02/22/21 05:11 Ordered Acetaminophen [TylenoL] Med 02/21/21 16:15 Active 650 mg PO Q4H PRN Albuterol [Proventil Neb Soln] Med 02/21/21 16:20 Active 2.5 mg NEB Q4H PRN Albuterol/Ipratropium [DuoNeb 3.0-0.5 MG/3 ML] Med 02/21/21 18:00 Active 3 ml NEB Q4HRRT Aspirin [Halfprin] Med 02/22/21 09:00 Active 81 mg PO DAILY Azithromycin [Zithromax] 500 mg Med 02/21/21 15:45 Active Sodium Chloride 0.9% [Normal Saline (AdvBag)] 250 ml IV ONETIME Enoxaparin [Lovenox] Med 02/21/21 16:15 Active 40 mg SUBCUT Q24H Furosemide [Lasix] Med 02/22/21 09:00 Active 40 mg PO DAILY Levofloxacin/Dextrose 5%-Water [Levaquin in D5W 750 MG/ Med 02/21/21 16:30 Active 150 ML] 750 mg Premix Bag 1 bag IV Q24H Multivitamins [Tab-A-Cheo] Med 02/22/21 09:00 Active 1 tab PO DAILY Ondansetron [Zofran] Med 02/21/21 16:15 Active 4 mg IVPUSH Q4H PRN Patient's Own Medication [Ptom] Med 02/22/21 09:00 Active 1 each INH DAILY Patient's Own Medication [Ptom] Med 02/21/21 21:00 Active 1 each PO BEDTIME Sodium Chloride 0.9% [Saline Flush] Med 02/21/21 16:15 Active 2.5 ml FLUSH ASDIRECTED PRN lisinopriL [Prinivil] Med 02/22/21 09:00 Active 10 mg PO DAILY methylPREDNISolone Sod Succ [Solu-MEDROL] Med 02/21/21 22:00 Active 40 mg IVPUSH Q8H Isolation [COMM] Routine Oth 02/21/21 10:04 Active Saline Lock Insert [OM.PC] Routine Oth 02/21/21 16:15 Ordered Resuscitation Status Routine Resus Stat 02/21/21 16:15 Ordered Medication Orders Acetaminophen (Acetaminophen 325 Mg Tab) 650 mg PO Q4H PRN PRN Reason: Pain (Mild 1-3)/fever Albuterol (Albuterol 0.083% 2.5 Mg/3 Ml Neb Soln) 2.5 mg NEB Q4H PRN PRN Reason: Shortness of Breath Albuterol/Ipratropium (Albuterol/Ipratropium 3.0-0.5 Mg/3 Ml Neb Soln) 3 ml NEB Q4HRRT [facility] Last Admin: 02/21/21 17:35 Dose: 3 ml Documented by: AMIE Aspirin (Aspirin 81 Mg Tab.Ec) 81 mg PO DAILY [facility] Enoxaparin Sodium (Enoxaparin 40 Mg/0.4 Ml Syringe) 40 mg SUBCUT Q24H [facility] Furosemide (Furosemide 40 Mg Tab) 40 mg PO DAILY [facility] Azithromycin 500 mg/ Sodium (Chloride) 250 mls @ 250 mls/hr IV ONETIME [facility] Last Admin: 02/21/21 15:59 Dose: 250 mls/hr Documented by: ALONSO Levofloxacin/Dextrose 750 mg/ (Premix) 150 mls @ 100 mls/hr IV Q24H [facility] Last Admin: 02/21/21 18:28 Dose: 100 mls/hr Documented by: NEALCERICH Lisinopril (Lisinopril 10 Mg Tab) 10 mg PO DAILY [facility] Methylprednisolone Sodium Succinate (Methylprednisolone Sodium Succinate 40 Mg/1 Ml Sdv) 40 mg IVPUSH Q8H [facility] Multivitamins/Minerals/Vitamin C (Multivitamin Tab) 1 tab PO DAILY [facility] Ondansetron HCl (Ondansetron 4 Mg/2 Ml Sdv) 4 mg IVPUSH Q4H PRN PRN Reason: Nausea Fluticasone/Umeclidin/Vilanter [ Trelegy Ellipta 100- 62.5- 1 each INH DAILY [facility] Melatonin [Melatonin (] 5 Mg Tablet) 1 each PO BEDTIME [facility] Sodium Chloride (Sodium Chloride 0.9% 2.5 Ml Syringe) 2.5 ml FLUSH ASDIRECTED PRN PRN Reason: Keep Vein Open Assessment/Plan Comment:: 55-year-old female admitted for acute on chronic hypoxic respiratory failure likely secondary to community-acquired pneumonia , with possible COPD exacerbation component Continue to support oxygenation via nasal cannula currently patient needs 5 L reportedly per 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
[2021-02-21] MEDS: Enoxaparin 40 MG/0.4 ML Syringe SUBCUT SCH (20:33)
[2021-02-21] MEDS: Melatonin [Melatonin] 5 MG Tablet PO SCH (23:22)
[2021-02-21] MEDS: methylPREDNISolone Sodium Succinate 40 MG/1 ML SDV IVPUSH SCH (23:22)
[2021-02-22] MEDS: Albuterol/Ipratropium 3.0-0.5 MG/3 ML Neb Soln NEB SCH ×5 (02:54→21:51)
[2021-02-22] MEDS: methylPREDNISolone Sodium Succinate 40 MG/1 ML SDV IVPUSH SCH ×3 (06:33→21:51)
[2021-02-22 07:37] LABS: BLOOD UREA NITROGEN,BUN 9 mg/dL (7.0-18.0); CARBON DIOXIDE,CO2 43.3 mmol/L (21.0-32.0); CHLORIDE,CL 99 mmol/L (98-107); GLUCOSE RANDOM 139 mg/dL (74-106); POTASSIUM,K 5.4 mmol/L (3.5-5.1); SODIUM,NA 140 mmol/L (136-145)
[2021-02-22] MEDS: Aspirin 81 MG Tab.EC PO SCH (09:30)
[2021-02-22] MEDS: Multivitamin Tab PO SCH (09:30)
[2021-02-22] MEDS: Furosemide 40 MG Tab PO SCH (09:30)
[2021-02-22] MEDS: Lisinopril 10 MG Tab PO SCH (09:31)
[2021-02-22] MEDS: Fluticasone/Umeclidin/Vilanter [Trelegy Ellipta 100-62.5- INH SCH (11:15)
--- NOTE | 2021-02-22 14:35 | PCM.PN ---
- General Info Date of Service: 02/22/21 Admission Dx/Problem (Free Text): Admission Diagnosis/Problem Admission Diagnosis/Problem Pneumonia Subjective Update: Sitting on the edge of the bed resting comfortably talking in full sentences distress. Use of oxygen to maintain 88%. Continues to have some cough and wheezing Functional Status: Reports: Tolerating Diet, Ambulating, Urinating - Review of Systems General: Reports: Weakness, Fatigue. Denies: Fever, Malaise Pulmonary: Reports: Shortness of Breath, Cough. Denies: Pleuritic Chest Pain Cardiovascular: Reports: Dyspnea on Exertion. Denies: Chest Pain, Palpitations Gastrointestinal: Denies: Abdominal Pain, Constipation, Decreased Appetite Genitourinary: Denies: Dysuria, Frequency, Burning, Pain Musculoskeletal: Denies: Neck Pain, Shoulder Pain, Arm Pain Skin: Denies: Cyanosis, Jaundice, Mottled Neurological: Denies: Confusion, Dizziness, Headache - Patient Data Vitals - Most Recent: Last Vital Signs Temp 36.1 C 02/22/21 12:00 Pulse 92 02/22/21 12:00 Resp 22 H 02/22/21 12:00 BP 124/63 02/22/21 12:00 Pulse Ox 88 L 02/22/21 12:00 Weight - Most Recent: 106.005 kg I&O - Last 24 Hours: Intake & Output 02/21/21 02/22/21 02/22/21 22:59 06:59 14:59 Intake Total 500 Output Total 0 Balance 500 Lab Results Last 24 Hours: Laboratory Results - last 24 hr 02/22/21 02/22/21 Range/Units 06:21 06:21 WBC 9.70 (4.0-11.0) K/uL RBC 4.59 (4.30-5.90) M/uL Hgb 14.5 (12.0-16.0) g/dL Hct 47.9 H (36.0-46.0) % MCV 104.4 H (80.0-98.0) fL MCH 31.6 (27.0-32.0) pg MCHC 30.3 L (31.0-37.0) g/dL RDW Std Deviation 56.4 (28.0-62.0) fl RDW Coeff of Vera 15 (11.0-15.0) % Plt Count 206 (150-400) K/uL MPV 10.70 (7.40-12.00) fL Neut % (Auto) 93.2 H (48.0-80.0) % Lymph % (Auto) 4.4 L (16.0-40.0) % [place] % (Auto) 2.3 (0.0-15.0) % Eos % (Auto) 0.0 (0.0-7.0) % Baso % (Auto) 0.1 (0.0-1.5) % Neut # (Auto) 9.0 H (1.4-5.7) K/uL Lymph # (Auto) 0.4 L (0.6-2.4) K/uL [place] # (Auto) 0.2 (0.0-0.8) K/uL Eos # (Auto) 0.0 (0.0-0.7) K/uL Baso # (Auto) 0.0 (0.0-0.1) K/uL Nucleated RBC % 0.0 /100WBC Nucleated RBCs # 0 K/uL Sodium 140 (136-145) mmol/L Potassium 5.4 H (3.5-5.1) mmol/L Chloride 99 (98-107) mmol/L Carbon Dioxide 43.3 H (21.0-32.0) mmol/L BUN 9 (7.0-18.0) mg/dL Creatinine 0.5 L (0.6-1.0) mg/dL Est Cr Clr Drug Dosing 122.48 mL/min Estimated GFR (MDRD) > 60.0 ml/min Glucose 139 H (74-106) mg/dL Calcium 8.3 L (8.5-10.1) mg/dL Magnesium 2.2 (1.8-2.4) mg/dL Med Orders - Current: Current Medications Acetaminophen (Acetaminophen 325 Mg Tab) 650 mg PO Q4H PRN PRN Reason: Pain (Mild 1-3)/fever Albuterol (Albuterol 0.083% 2.5 Mg/3 Ml Neb Soln) 2.5 mg NEB Q4H PRN PRN Reason: Shortness of Breath Albuterol/Ipratropium (Albuterol/Ipratropium 3.0-0.5 Mg/3 Ml Neb Soln) 3 ml NEB Q4HRRT [facility] Last Admin: 02/22/21 14:18 Dose: 3 ml Documented by: Aspirin (Aspirin 81 Mg Tab.Ec) 81 mg PO DAILY [facility] Last Admin: 02/22/21 09:30 Dose: 81 mg Documented by: Enoxaparin Sodium (Enoxaparin 40 Mg/0.4 Ml Syringe) 40 mg SUBCUT Q24H [facility] Last Admin: 02/21/21 20:33 Dose: Not Given Documented by: Furosemide (Furosemide 40 Mg Tab) 40 mg PO DAILY [facility] Last Admin: 02/22/21 09:30 Dose: 40 mg Documented by: Azithromycin 500 mg/ Sodium (Chloride) 250 mls @ 250 mls/hr IV ONETIME [facility] Last Admin: 02/21/21 15:59 Dose: 250 mls/hr Documented by: Levofloxacin/Dextrose 750 mg/ (Premix) 150 mls @ 100 mls/hr IV Q24H [facility] Last Admin: 02/21/21 18:28 Dose: 100 mls/hr Documented by: Lisinopril (Lisinopril 10 Mg Tab) 10 mg PO DAILY [facility] Last Admin: 02/22/21 09:31 Dose: 10 mg Documented by: Methylprednisolone Sodium Succinate (Methylprednisolone Sodium Succinate 40 Mg/1 Ml Sdv) 40 mg IVPUSH Q8H [facility] Last Admin: 02/22/21 06:33 Dose: 40 mg Documented by: Multivitamins/Minerals/Vitamin C (Multivitamin Tab) 1 tab PO DAILY [facility] Last Admin: 02/22/21 09:30 Dose: 1 tab Documented by: Ondansetron HCl (Ondansetron 4 Mg/2 Ml Sdv) 4 mg IVPUSH Q4H PRN PRN Reason: Nausea Fluticasone/Umeclidin/Vilanter [ Trelegy Ellipta 100- 62.5- 1 each INH DAILY [facility] Last Admin: 02/22/21 11:15 Dose: Not Given Documented by: Melatonin [Melatonin (] 5 Mg Tablet) 1 each PO BEDTIME [facility] Last Admin: 02/21/21 23:22 Dose: Not Given Documented by: Sodium Chloride (Sodium Chloride 0.9% 2.5 Ml Syringe) 2.5 ml FLUSH ASDIRECTED PRN PRN Reason: Keep Vein Open Discontinued Medications Albuterol/Ipratropium (Albuterol/Ipratropium 3.0-0.5 Mg/3 Ml Neb Soln) 3 ml NEB ONETIME ONE Stop: 02/21/21 12:01 Last Admin: 02/21/21 12:17 Dose: 3 ml Documented by: Iopamidol (Iopamidol 755 Mg/Ml 500 Ml Multipack Bottle) 100 ml IVPUSH ONETIME STA Stop: 02/21/21 17:30 Last Admin: 02/21/21 17:30 Dose: 100 ml Documented by: Methylprednisolone Sodium Succinate (Methylprednisolone Sodium Succinate 125 Mg/2 Ml Sdv) 125 mg IVPUSH ONETIME ONE Stop: 02/21/21 11:08 Last Admin: 02/21/21 11:19 Dose: 125 mg Documented by: Sodium Chloride (Sodium Chloride 0.9% 10 Ml Syringe) 10 ml FLUSH ASDIRECTED PRN PRN Reason: Keep Vein Open Last Admin: 02/21/21 11:19 Dose: 10 ml Documented by: Sodium Chloride (Sodium Chloride 0.9% 2.5 Ml Syringe) 2.5 ml FLUSH ASDIRECTED PRN PRN Reason: Keep Vein Open Last Admin: 02/21/21 11:19 Dose: 2.5 ml Documented by: - Exam Quality Assessment: Supplemental Oxygen General: Alert, Oriented, Cooperative, Mild Distress Lungs: Normal Respiratory Effort, Decreased Breath Sounds, Rales Cardiovascular: Regular Rate, Regular Rhythm GI/Abdominal Exam: Normal Bowel Sounds, Soft Extremities: Normal Inspection, Normal Range of Motion, Non-Tender, No Pedal Edema - Patient Data Lab Results Last 24 hrs: Laboratory Results - last 24 hr 02/22/21 02/22/21 Range/Units 06:21 06:21 WBC 9.70 (4.0-11.0) K/uL RBC 4.59 (4.30-5.90) M/uL Hgb 14.5 (12.0-16.0) g/dL Hct 47.9 H (36.0-46.0) % MCV 104.4 H (80.0-98.0) fL MCH 31.6 (27.0-32.0) pg MCHC 30.3 L (31.0-37.0) g/dL RDW Std Deviation 56.4 (28.0-62.0) fl RDW Coeff of Vera 15 (11.0-15.0) % Plt Count 206 (150-400) K/uL MPV 10.70 (7.40-12.00) fL Neut % (Auto) 93.2 H (48.0-80.0) % Lymph % (Auto) 4.4 L (16.0-40.0) % [place] % (Auto) 2.3 (0.0-15.0) % Eos % (Auto) 0.0 (0.0-7.0) % Baso % (Auto) 0.1 (0.0-1.5) % Neut # (Auto) 9.0 H (1.4-5.7) K/uL Lymph # (Auto) 0.4 L (0.6-2.4) K/uL [place] # (Auto) 0.2 (0.0-0.8) K/uL Eos # (Auto) 0.0 (0.0-0.7) K/uL Baso # (Auto) 0.0 (0.0-0.1) K/uL Nucleated RBC % 0.0 /100WBC Nucleated RBCs # 0 K/uL Sodium 140 (136-145) mmol/L Potassium 5.4 H (3.5-5.1) mmol/L Chloride 99 (98-107) mmol/L Carbon Dioxide 43.3 H (21.0-32.0) mmol/L BUN 9 (7.0-18.0) mg/dL Creatinine 0.5 L (0.6-1.0) mg/dL Est Cr Clr Drug Dosing 122.48 mL/min Estimated GFR (MDRD) > 60.0 ml/min Glucose 139 H (74-106) mg/dL Calcium 8.3 L (8.5-10.1) mg/dL Magnesium 2.2 (1.8-2.4) mg/dL Result Diagrams: 02/22/21 06:21 02/22/21 06:21 Sepsis Event Note - Evaluation Sepsis Screening Result: No Definite Risk - Focused Exam Vital Signs: Vital Signs Temp Pulse Resp BP BP Pulse Ox 02/22/21 12:00 36.1 C 92 22 H 124/63 88 L 02/22/21 09:31 132/61 02/22/21 08:00 36.3 C 70 22 H 132/61 88 L 02/22/21 04:00 36.3 C 89 24 H 115/54 L 93 L - Problem List & Annotations (1) Community acquired pneumonia SNOMED Code(s): 233161202 Code(s): J18.9 - PNEUMONIA, UNSPECIFIED ORGANISM Status: Acute Current Visit: Yes Qualifiers: Laterality: right Lung location: lower lobe of lung Qualified Code(s): J18.9 - Pneumonia, unspecified organism (2) Hypoxia SNOMED Code(s): 503012549 Code(s): R09.02 - HYPOXEMIA Status: Acute Current Visit: Yes (3) Acute on chronic respiratory failure with hypoxia and hypercapnia SNOMED Code(s): 88857953632564 Code(s): J96.21 - ACUTE AND CHRONIC RESPIRATORY FAILURE WITH HYPOXIA; J96.22 - ACUTE AND CHRONIC RESPIRATORY FAILURE WITH HYPERCAPNIA Status: Acute Current Visit: No (4) CHF (congestive heart failure) SNOMED Code(s): 68876176 Code(s): I50.9 - HEART FAILURE, UNSPECIFIED Status: Acute Current Visit: No (5) HLD (hyperlipidemia) SNOMED Code(s): 18625982 Code(s): E78.5 - HYPERLIPIDEMIA, UNSPECIFIED Status: Chronic Current Visit: No (6) HTN (hypertension) SNOMED Code(s): 43210782 Code(s): I10 - ESSENTIAL (PRIMARY) HYPERTENSION Status: Chronic Current Visit: No Qualifiers: Hypertension type: essential hypertension Qualified Code(s): I10 - Essential (primary) hypertension (7) Obesity SNOMED Code(s): 875857149, 160503030 Code(s): E66.9 - OBESITY, UNSPECIFIED Status: Chronic Current Visit: No (8) Oxygen dependent SNOMED Code(s): 580423497422 Code(s): Z99.81 - DEPENDENCE ON SUPPLEMENTAL OXYGEN Status: Chronic Current Visit: No (9) COPD (chronic obstructive pulmonary disease) SNOMED Code(s): 36698163 Code(s): J44.9 - CHRONIC OBSTRUCTIVE PULMONARY DISEASE, UNSPECIFIED Status: Acute Current Visit: Yes - Problem List Review Problem List Initiated/Reviewed/Updated: Yes - Plan Plan:: 55-year-old female admitted for acute on chronic hypoxic respiratory failure likely secondary to community-acquired pneumonia , with possible COPD exacerb ation component Continue to support oxygenation via nasal cannula currently patient needs 5 L 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
[2021-02-22] MEDS: Levofloxacin/Dextrose 5%-Water 750 MG in Premix Bag 1 BAG IV SCH (17:28)
[2021-02-22] MEDS: Enoxaparin 40 MG/0.4 ML Syringe SUBCUT SCH (17:36)
[2021-02-22] MEDS: Melatonin [Melatonin] 5 MG Tablet PO SCH (21:50)
[2021-02-23] MEDS: Albuterol/Ipratropium 3.0-0.5 MG/3 ML Neb Soln NEB SCH ×4 (02:36→09:12)
[2021-02-23 07:51] LABS: BLOOD UREA NITROGEN,BUN 14 mg/dL (7.0-18.0); CARBON DIOXIDE,CO2 42.1 mmol/L (21.0-32.0); CHLORIDE,CL 96 mmol/L (98-107); GLUCOSE RANDOM 131 mg/dL (74-106); SODIUM,NA 140 mmol/L (136-145)
[2021-02-23 08:39] VITALS: BP 125/56; PULSE 86
[2021-02-23] MEDS: Aspirin 81 MG Tab.EC PO SCH (08:41)
[2021-02-23] MEDS: Furosemide 40 MG Tab PO SCH (08:41)
[2021-02-23] MEDS: Multivitamin Tab PO SCH (08:41)
[2021-02-23] MEDS: Lisinopril 10 MG Tab PO SCH (08:41)
--- NOTE | 2021-02-23 11:32 | PCM.DCSUM1 ---
Discharge Summary - Discharge Data Discharge Date: 02/23/21 Discharge Disposition: Home, Self-Care 01 Condition: Stable - Referral to Home Health Primary Care Physician: Hernesto Gong MD - Patient Summary/Data Hospital Course: Patient is a 55-year-old female, with a history of COPD on 4 L chronic nasal O2 at home, who presents emergency room with concern of worsening shortness of angelito th, cough, and hypoxia x2 days. EKG performed to the ER showed normal sinus rhythm without STEMI. CBC mild derangements unremarkable. CMP showed elevation of carbon dioxide at 49.9, otherwise mild derangements unremarkable. COVID-19 negative. Influenza negative. Troponin negative. Chest x-ray showed new streaky opacity in the left lung base may represent atelectasis or infiltrate. Angiography CT chest is negative for acute pulmonary embolism. Enlargement of the central pulmonary arteries can be seen with pulmonary hypertension. Consolidation in the right lower lobe suspicious for pneumonia. Additional areas of consolidation in the left lower lobe and lingula may represent atelectasis or infiltrate. 2 stable noncalcified pulmonary nodules measuring up to 5 mm. Subacute healing nondisplaced fractures of the left anterior fourth through eighth ribs. Patient does state that she suffered a mechanical fall last week when she caught her foot in some weight in the garden and fell straight on her chest since then she has been having pain in the left side of her rib cage. She was admitted for pneumonia and COPD exacerbation. She was treated with Levaquin and solumedrol. Her symptoms improved and today she is on 3 L NC. She feels well and wants to be discharged home. She was discharged home to follow up with Her PCP regarding resolution of her pneumonia and pulmonary nodules seen on CT scan. - Patient Instructions Diet: Heart Healthy Diet Activity: No Strenuous Activities - Discharge Plan Prescriptions/Med Rec: levoFLOXacin [Levaquin] 500 mg PO DAILY #4 tab predniSONE 20 mg PO WITHBREAKFAST #4 tab Home Medications: Home Meds Albuterol Sulfate 2.5 mg NEB Q4H PRN 12/05/19 [History] Cholecalciferol (Vitamin D3) [Vitamin D3] 25 mcg PO DAILY 12/05/19 [History] Multivitamin [Multi-Vitamin Daily] 1 tab PO DAILY 12/05/19 [History] lisinopriL [Lisinopril] 10 mg PO DAILY 12/05/19 [History] Albuterol [Ventolin HFA] 2 inh INH Q4H PRN 08/06/20 [History] Fluticasone/Umeclidin/Vilanter [Trelegy Ellipta 100-62.5-25 MCG] 1 puff INH DAILY 08/06/20 [History] Furosemide [Lasix] 40 mg PO DAILY 08/06/20 [History] Aspirin [Halfprin] 81 mg PO DAILY 12/04/20 [History] Melatonin 5 mg PO BEDTIME PRN 12/04/20 [History] Nicotine [Nicotine Patch] 21 mg TD DAILY 12/04/20 [History] Albuterol/Ipratropium [DuoNeb 3.0-0.5 MG/3 ML] 3 ml .XX TID 4 Days #12 neb 12/23/20 [Rx] Budesonide/Formoterol [Symbicort 160-4.5 MCG] 1 puff INH BID 02/21/21 [History] levoFLOXacin [Levaquin] 500 mg PO DAILY #4 tab 02/23/21 [Rx] predniSONE 20 mg PO WITHBREAKFAST #4 tab 02/23/21 [Rx] Forms: ED Department Discharge Referrals: Hernesto Gong MD [Primary Care Provider] - - Discharge Summary/Plan Comment DC Time >30 min.: No Total # of Minutes for Discharge Time: 15 - Patient Data Vitals - Most Recent: Last Vital Signs Temp 37.3 C 02/23/21 08:00 Pulse 86 02/23/21 08:00 Resp 16 02/23/21 08:00 BP 125/56 L 02/23/21 08:41 Pulse Ox 92 L 02/23/21 08:00 Weight - Most Recent: 106.005 kg I&O - Last 24 hours: Intake & Output 02/22/21 02/23/21 02/23/21 22:59 06:59 14:59 Intake Total 650 Output Total 0 Balance 650 Lab Results - Last 24 hrs: Laboratory Results - last 24 hr 02/23/21 02/23/21 Range/Units 06:39 06:39 WBC 12.86 H (4.0-11.0) K/uL RBC 4.72 (4.30-5.90) M/uL Hgb 15.1 (12.0-16.0) g/dL Hct 49.3 H (36.0-46.0) % MCV 104.4 H (80.0-98.0) fL MCH 32.0 (27.0-32.0) pg MCHC 30.6 L (31.0-37.0) g/dL RDW Std Deviation 57.1 (28.0-62.0) fl RDW Coeff of Vera 15 (11.0-15.0) % Plt Count 238 (150-400) K/uL MPV 11.50 (7.40-12.00) fL Neut % (Auto) 90.0 H (48.0-80.0) % Lymph % (Auto) 4.8 L (16.0-40.0) % [place] % (Auto) 5.1 (0.0-15.0) % Eos % (Auto) 0.0 (0.0-7.0) % Baso % (Auto) 0.1 (0.0-1.5) % Neut # (Auto) 11.6 H (1.4-5.7) K/uL Lymph # (Auto) 0.6 (0.6-2.4) K/uL [place] # (Auto) 0.7 (0.0-0.8) K/uL Eos # (Auto) 0.0 (0.0-0.7) K/uL Baso # (Auto) 0.0 (0.0-0.1) K/uL Nucleated RBC % 0.0 /100WBC Nucleated RBCs # 0 K/uL Sodium 140 (136-145) mmol/L Potassium 5.0 (3.5-5.1) mmol/L Chloride 96 L (98-107) mmol/L Carbon Dioxide 42.1 H (21.0-32.0) mmol/L BUN 14 (7.0-18.0) mg/dL Creatinine 0.5 L (0.6-1.0) mg/dL Est Cr Clr Drug Dosing 122.48 mL/min Estimated GFR (MDRD) > 60.0 ml/min Glucose 131 H (74-106) mg/dL Calcium 8.9 (8.5-10.1) mg/dL Med Orders - Current: Current Medications Acetaminophen (Acetaminophen 325 Mg Tab) 650 mg PO Q4H PRN PRN Reason: Pain (Mild 1-3)/fever Albuterol (Albuterol 0.083% 2.5 Mg/3 Ml Neb Soln) 2.5 mg NEB Q4H PRN PRN Reason: Shortness of Breath Albuterol/Ipratropium (Albuterol/Ipratropium 3.0-0.5 Mg/3 Ml Neb Soln) 3 ml NEB Q4HRRT [facility] Last Admin: 02/23/21 09:12 Dose: 3 ml Documented by: Aspirin (Aspirin 81 Mg Tab.Ec) 81 mg PO DAILY [facility] Last Admin: 02/23/21 08:41 Dose: 81 mg Documented by: Enoxaparin Sodium (Enoxaparin 40 Mg/0.4 Ml Syringe) 40 mg SUBCUT Q24H [facility] Last Admin: 02/22/21 17:36 Dose: Not Given Documented by: Furosemide (Furosemide 40 Mg Tab) 40 mg PO DAILY [facility] Last Admin: 02/23/21 08:41 Dose: 40 mg Documented by: Levofloxacin/Dextrose 750 mg/ (Premix) 150 mls @ 100 mls/hr IV Q24H [facility] Last Admin: 02/22/21 17:28 Dose: 100 mls/hr Documented by: Lisinopril (Lisinopril 10 Mg Tab) 10 mg PO DAILY [facility] Last Admin: 02/23/21 08:41 Dose: 10 mg Documented by: Methylprednisolone Sodium Succinate (Methylprednisolone Sodium Succinate 40 Mg/1 Ml Sdv) 40 mg IVPUSH Q12H [facility] Last Admin: 02/22/21 21:51 Dose: 40 mg Documented by: Multivitamins/Minerals/Vitamin C (Multivitamin Tab) 1 tab PO DAILY [facility] Last Admin: 02/23/21 08:41 Dose: 1 tab Documented by: Ondansetron HCl (Ondansetron 4 Mg/2 Ml Sdv) 4 mg IVPUSH Q4H PRN PRN Reason: Nausea Fluticasone/Umeclidin/Vilanter [ Trelegy Ellipta 100- 62.5- 1 each INH DAILY [facility] Last Admin: 02/22/21 11:15 Dose: Not Given Documented by: Melatonin [Melatonin (] 5 Mg Tablet) 1 each PO BEDTIME [facility] Last Admin: 02/22/21 21:50 Dose: Not Given Documented by: Sodium Chloride (Sodium Chloride 0.9% 2.5 Ml Syringe) 2.5 ml FLUSH ASDIRECTED PRN PRN Reason: Keep Vein Open Discontinued Medications Albuterol/Ipratropium (Albuterol/Ipratropium 3.0-0.5 Mg/3 Ml Neb Soln) 3 ml NEB ONETIME ONE Stop: 02/21/21 12:01 Last Admin: 02/21/21 12:17 Dose: 3 ml Documented by: Azithromycin 500 mg/ Sodium (Chloride) 250 mls @ 250 mls/hr IV ONETIME [facility] Last Admin: 02/21/21 15:59 Dose: 250 mls/hr Documented by: Iopamidol (Iopamidol 755 Mg/Ml 500 Ml Multipack Bottle) 100 ml IVPUSH ONETIME [facility] Stop: 02/21/21 17:30 Last Admin: 02/21/21 17:30 Dose: 100 ml Documented by: Methylprednisolone Sodium Succinate (Methylprednisolone Sodium Succinate 125 Mg/2 Ml Sdv) 125 mg IVPUSH ONETIME ONE Stop: 02/21/21 11:08 Last Admin: 02/21/21 11:19 Dose: 125 mg Documented by: Methylprednisolone Sodium Succinate (Methylprednisolone Sodium Succinate 40 Mg/1 Ml Sdv) 40 mg IVPUSH Q8H [facility] Last Admin: 02/22/21 14:28 Dose: 40 mg Documented by: Sodium Chloride (Sodium Chloride 0.9% 10 Ml Syringe) 10 ml FLUSH ASDIRECTED PRN PRN Reason: Keep Vein Open Last Admin: 02/21/21 11:19 Dose: 10 ml Documented by: Sodium Chloride (Sodium Chloride 0.9% 2.5 Ml Syringe) 2.5 ml FLUSH ASDIRECTED PRN PRN Reason: Keep Vein Open Last Admin: 02/21/21 11:19 Dose: 2.5 ml Documented by:
[2021-02-23] MEDS: methylPREDNISolone Sodium Succinate 40 MG/1 ML SDV IVPUSH SCH (11:35)
[2021-02-23] MEDS: Fluticasone/Umeclidin/Vilanter [Trelegy Ellipta 100-62.5- INH SCH (11:35)
== END 2021-02-23 12:15 | disposition home or self-care (01) | DRG 193 ==
LOC: MW.ED 09:53 → MW.MS 15:56
PROVIDERS: ADMIT Student in an Organized Health Care Education/Training Program; ATTEND Student in an Organized Health Care Education/Training Program
DX: J18.9 Pneumonia, unspecified organism (principal); J96.21 Acute and chronic respiratory failure with hypoxia; J96.22 Acute and chronic respiratory failure with hypercapnia; J44.0 Chronic obstructive pulmonary disease with (acute) lower respiratory infection; J44.1 Chronic obstructive pulmonary disease with (acute) exacerbation; Z20.822 Contact with and (suspected) exposure to COVID-19; Z79.82 Long term (current) use of aspirin; Z79.899 Other long term (current) drug therapy; Z79.52 Long term (current) use of systemic steroids; Z88.1 Allergy status to other antibiotic agents; Z88.8 Allergy status to other drugs, medicaments and biological substances; Z88.5 Allergy status to narcotic agent; E78.00 Pure hypercholesterolemia, unspecified; G47.30 Sleep apnea, unspecified; G89.29 Other chronic pain; M54.9 Dorsalgia, unspecified; E66.9 Obesity, unspecified; Z90.49 Acquired absence of other specified parts of digestive tract; Z98.51 Tubal ligation status; Z98.890 Other specified postprocedural states; I11.0 Hypertensive heart disease with heart failure; I50.9 Heart failure, unspecified; Z99.81 Dependence on supplemental oxygen
CPT/HCPCS: 0240U; 36415; 71046; 71046-26; 71275; 71275-26; 80048; 80053; 83735; 84484; 85025; 85379; 93005; 94640; 96374; 99285-25; A9270-GY; J0456; J1956; J2920; J2930; J7050; J7620-GY; Q9967

== ENCOUNTER 2021-04-20 20:50 | Inpatient (IN) | payer OTHER ==
--- NOTE | 2021-04-20 21:22 | PCM.EKG ---
#1 Interpretation EKG Date: 04/20/21 Time: 21:14 Rhythm: NSR Rate (Beats/Min): 100 Dovray: RAD-Right Dovray Deviation P-Wave: Present QRS: Normal ST-T: Normal QT: Normal Comparison: No Change (02/21/21) EKG Interpretation Comments: Sinus Rhythm with occasional PVC
[2021-04-20] MEDS ORDERED: Albuterol/Ipratropium 3.0-0.5 MG/3 ML Neb Soln NEB ONE ×3 (22:09→22:10)
[2021-04-20] MEDS ORDERED: predniSONE 20 MG Tab PO ONE (22:10)
--- NOTE | 2021-04-20 22:20 | CR ---
INDICATION: Dyspnea. TECHNIQUE: Single AP view of the chest. COMPARISON: 02/21/2021. FINDINGS: Heart is mildly enlarged and stable. Mild pulmonary vascular congestion pattern. New subtle patchy airspace opacities in the mid right lung and right lung base. Bibasilar atelectasis and scarring are redemonstrated. No appreciable pleural fluid or pneumothorax. IMPRESSION: There are new subtle right-sided airspace opacities, which could be related to an acute infectious or inflammatory process. Clinically correlate. Dictated by Manny Wyatt MD @ 04/20/2021 10:16:03 PM Dictated by: Manny Wyatt MD @ 04/20/2021 22:19:54 (Electronically Signed)
[2021-04-20] MEDS ORDERED: Cefepime 2 GM in Premix Bag 1 BAG IV ONE (22:27)
[2021-04-20] MEDS ORDERED: Lactated Ringers 1,000 ML IV SCH (22:30)
[2021-04-20] MEDS ORDERED: VANCOmycin 2 GM/400 ML 2 GM in Premix Bag 1 BAG IV ONE (23:00)
[2021-04-20 23:46] LABS: BLOOD UREA NITROGEN,BUN 7 mg/dL (7.0-18.0); CHLORIDE,CL 96 mmol/L (98-107); GLUCOSE RANDOM 125 mg/dL (74-106); POTASSIUM,K 4.2 mmol/L (3.5-5.1); SODIUM,NA 141 mmol/L (136-145)
[2021-04-20 23:47] LABS: CARBON DIOXIDE,CO2 46.1 mmol/L (21.0-32.0)
--- NOTE | 2021-04-21 00:52 | EDM.PDOC ---
ED HPI GENERAL MEDICAL PROBLEM - General Chief Complaint: Respiratory Problem Stated Complaint: SHORTNESS OF BREATH Time Seen by Provider: 04/20/21 21:12 - History of Present Illness INITIAL COMMENTS - FREE TEXT/NARRATIVE: CHIEF COMPLAINT(S): Shortness of breath HISTORY OF PRESENT ILLNESS: This is a 55-year-old woman with a past medical history of COPD on 4 L home oxygen, CHF, hypertension who comes to the emergency department with a chief complaint of shortness of breath. The patient states that she states that she feels like she is having an exacerbation of her COPD. She states that she has not had any fevers or chills but she has had an increase in her cough and production of sputum. She does not know the color of her sputum. She denies any exertional dyspnea, orthopnea or increased swelling of her lower extremities. She denies any chest pain. She states that she has been using her inhalers but they do not seem to be working. She states that she is mainly here because she has been sleeping a lot and her daughter was concerned so she came to the emergency department. She denies any recent travel, recent surgery or prior history of DVT or PE REVIEW OF SYSTEMS: Constitutional: Denies fever, chills. Eyes: Denies eye pain Ears, Nose, Mouth, & Throat: Denies earache Cardiovascular: Denies chest pain Respiratory: Positive for cough which is productive and shortness of breath Gastrointestinal: Denies Nausea, vomiting, diarrhea, hematochezia. Genitourinary: Denies hematuria Skin:Denies a rash MSK: Denies joint pain Neurological: Denies blurred vision Psychiatric: Denies depression PAST MEDICAL HISTORY: As per history of present illness and as reviewed below otherwise noncontributory. SURGICAL HISTORY: As per history of present illness and as reviewed below otherwise noncontributory. SOCIAL HISTORY: As per history of present illness and as reviewed below otherwise noncontributory. FAMILY HISTORY: As per history of present illness and as reviewed below otherwise noncontributory. EXAMINATION OF ORGAN SYSTEMS/BODY AREAS: Constitutional: Blood pressure was 114/73, heart rate 92, respiratory rate 22 with an oxygen saturation of 82% on 5 L nasal cannula. Temperature 36.5 General: Obese woman who appears to be in no acute distress Psychiatric: Appropriate mood and affect. Eyes: No scleral icterus or conjunctival erythema ENMT: Moist mucous membranes. No pharyngeal erythema Cardiovascular: Regular, rate, and rhythm. No gallops, murmurs, or rubs. Bilateral upper extremity pulses symmetric and intact. No peripheral edema. No JVD. Respiratory: The patient is speaking in full sentences. She has bilateral inspiratory and expiratory wheezing. No obvious prolonged expiratory phase. Gastrointestinal: Soft, non-tender, non-distended. Normoactive bowel sounds Genitourinary: No suprapubic tenderness Musculoskeletal: Normal range of motion. Skin: No lesions or abrasions. Neurological: Alert, GCS 15 MEDICAL DECISION MAKING AND COURSE IN THE ED WITH INTERPRETATION/REVIEW OF DIAGNOSTIC STUDIES: This is a 55-year-old woman with a past medical history of COPD on 5 L home oxygen, hypertension, and CHF who comes to the emergency department with increased shortness of breath, productive cough who is hypoxic on her home oxygen level requiring increased supplemental oxygenation. At this time the patient is tachypneic and hypoxic. Per the patient the patient is baseline around 86 to 90% on 4 L nasal cannula. Currently she is at 82% we will monitor after DuoNeb treatments. We will treat as a COPD exacerbation with three DuoNeb treatments and Solu-Medrol. Obtain a chest x-ray. Given her history of heart failure we will obtain a BNP and a troponin. At this time given the patient is tachypneic with a respiratory greater than 22, acute on chronic hypoxia requiring increased oxygen requirement, increased productive cough suggestive of new infection, and a heart rate greater than 92 the patient does meet severe sepsis criteria. We will obtain blood cultures lactic acid, INR, and start the patient on cefepime and vancomycin. At this time we will provide the patient with 1 L of lactated Ringer's bolus and will hold off on additional administration until lactic acid comes back as the patient's blood pressure is normal. Patient was amenable to this plan. Cardiac monitoring at this time did reveal sinus rhythm and pulse oximetry with good waveform was 86 to 89% on 5 L nasal cannula. EKG was obtained which did not reveal any acute signs of ischemia. DDx: COPD exacerbation, pneumonia, COVID-19 Laboratory: CBC reveals a macrocytosis with an MCV of 104.4 and elevation in hematocrit at 47.6. White blood cell count is normal. INR is normal. BMP reveals hypochloremia at 96, metabolic alkalosis with a bicarbonate of 46 which is essentially unchanged from prior. Hyperglycemia at 125. Troponin is negative. Magnesium is normal. BNP is 81. Lactic acid is 0.6. Covid is negative. Given the lactic acid is normal and patient's blood pressure is normal no further fluid administration is necessary. Given her history of CHF and the patient's ability to tolerate p.o. we will not start her on any maintenance fluids as the patient is capable of drinking fluids on her own. The radiological images were viewed by myself along with reading the report from the radiologist. Chest x-ray reveals new subtle right-sided airspace opacities concerning for infectious or inflammatory process. On reevaluation after DuoNeb treatments the patient had continued wheezing and her pulse oximetry on 5 L nasal cannula was 86 to 89%. At this time given the increased oxygen requirement, pneumonia on chest x-ray I did discuss admission with the patient. She was amenable to this plan. Therefore I contacted Dr. Palafox who accepted the patient for admission. DISPOSITION: Patient was admitted to the hospital in stable yet serious condition CONDITION: Serious PROCEDURES: Cardiac monitoring interpretation, pulse oximetry interpretation FINAL IMPRESSION(S)/DIAGNOSES: 1. Acute on chronic hypoxic respiratory failure secondary to right lower lobe pneumonia and COPD exacerbation 2. Acute right lower lung pneumonia 3. Acute COPD exacerbation. 4. Severe sepsis secondary to #2 Critical Care Procedure Note Authorized and performed by: Sonido Hurst M.D. Critical Care Time: 50 minutes Due to a high probability of clinically significant, life threatening deterioration, the patient required my highest level of preparedness to intervene emergently and I personally spent this critical care time directly and personally managing the patient. This critical care time included obtaining a history, examining the patient, pulse oximetry; ordering and review of studies; arranging urgent treatment with development of a management plan; evaluation of a patients reponse to treatment; frequent assessment; and discussions with other providers. This critical care time was performed to assess and manage the high probability of imminent, life threatening deterioration that could result in multiorgan failure. It was exclusive of separate billable procedures and treating other patients. Please see MDM section and rest of the note for further information on patient assessment and treatment. Please see MDM section and rest of the note for further information on patient assessment and treatment. Sonido Hurst M.D. - Related Data Allergies Allergy/AdvReac Type Severity Reaction Status Date / Time cephalexin [From Keflex] Allergy Hives Verified 04/20/21 21:12 diclofenac Allergy Rash Verified 04/20/21 21:12 oxycodone [From Percocet] Allergy Rash Verified 04/20/21 21:12 Home Meds: Home Meds Albuterol Sulfate 2.5 mg NEB Q4H PRN 12/05/19 [History] Cholecalciferol (Vitamin D3) [Vitamin D3] 25 mcg PO DAILY 12/05/19 [History] Multivitamin [Multi-Vitamin Daily] 1 tab PO DAILY 12/05/19 [History] lisinopriL [Lisinopril] 10 mg PO DAILY 12/05/19 [History] Albuterol [Ventolin HFA] 2 inh INH Q4H PRN 08/06/20 [History] Fluticasone/Umeclidin/Vilanter [Trelegy Ellipta 100-62.5-25 MCG] 1 puff INH DAILY 08/06/20 [History] Furosemide [Lasix] 40 mg PO DAILY 08/06/20 [History] Aspirin [Halfprin] 81 mg PO DAILY 12/04/20 [History] Melatonin 5 mg PO BEDTIME PRN 12/04/20 [History] Nicotine [Nicotine Patch] 21 mg TD DAILY 12/04/20 [History] Albuterol/Ipratropium [DuoNeb 3.0-0.5 MG/3 ML] 3 ml .XX TID 4 Days #12 neb 12/23/20 [Rx] Budesonide/Formoterol [Symbicort 160-4.5 MCG] 1 puff INH BID 02/21/21 [History] levoFLOXacin [Levaquin] 500 mg PO DAILY #4 tab 02/23/21 [Rx] predniSONE 20 mg PO WITHBREAKFAST #4 tab 02/23/21 [Rx] Past Medical History HEENT History: Reports: Other (See Below) Other HEENT History: sinus issues Cardiovascular History: Reports: High Cholesterol, Hypertension Respiratory History: Reports: Bronchitis, Recurrent, COPD, Sleep Apnea Gastrointestinal History: Reports: None Genitourinary History: Reports: None [employer] History: Reports: Musculoskeletal History: Reports: Back Pain, Chronic Neurological History: Reports: None Psychiatric History: Reports: None Endocrine/Metabolic History: Reports: Obesity/BMI 30+ Hematologic History: Reports: None Immunologic History: Reports: None Oncologic (Cancer) History: Reports: None Dermatologic History: Reports: None - Infectious Disease History Infectious Disease History: Reports: Chicken Pox - Past Surgical History Head Surgeries/Procedures: Reports: None HEENT Surgical History: Reports: Tonsillectomy Cardiovascular Surgical History: Reports: None Respiratory Surgical History: Reports: None GI Surgical History: Reports: Cholecystectomy Female Surgical History: Reports: Tubal Ligation Endocrine Surgical History: Reports: None Musculoskeletal Surgical History: Reports: Other (See Below) Other Musculoskeletal Surgeries/Procedures:: Left arm surgery Social & Family History - Family History Family Medical History: No Pertinent Family History - Caffeine Use Caffeine Use: Reports: Coffee Caffeine Use Comment: seldom drinks energy drinks - Recreational Drug Use Recreational Drug Use: No - Living Situation & Occupation Occupation: Employed ED ROS GENERAL - Review of Systems Review Of Systems: See Below ED EXAM, GENERAL - Physical Exam Exam: See Below Course - Vital Signs Last Recorded V/S: Last Vital Signs Temp 36.9 C 04/21/21 01:24 Pulse 93 04/21/21 01:24 Resp 22 H 04/21/21 01:24 BP 134/80 04/21/21 01:24 Pulse Ox 91 L 04/21/21 01:24 - Orders/Labs/Meds Orders: Active Orders 24 hr Category Date Time Status Cardiac Monitoring [RC] . DIRECTED Care 04/20/21 21:17 Active Pulse Oximetry [RC] ASDIRECTED Care 04/20/21 21:17 Active RT Aerosol Therapy [RC] ASDIRECTED Care 04/20/21 22:09 Active RT Aerosol Therapy [RC] ASDIRECTED Care 04/20/21 22:10 Active RT Aerosol Therapy [RC] ASDIRECTED Care 04/20/21 22:10 Active CULTURE BLOOD [BC] Stat Lab 04/20/21 22:45 Received CULTURE BLOOD [BC] Stat Lab 04/20/21 22:55 Received VANCOMYCIN TROUGH [CHEM] Timed Lab 04/22/21 10:30 Ordered Lactated Ringers [Ringers, Lactated] 1,000 ml Med 04/20/21 22:30 Active IV ASDIRECTED Pharmacy to Dose - Vancomycin Med 04/20/21 22:27 Pending 1 dose .XX ONETIME ONE Blood Culture x2 Reflex Set [OM.PC] Stat Oth 04/20/21 22:27 Ordered Medication Orders Acetaminophen (Acetaminophen 325 Mg Tab) 650 mg PO Q6H PRN PRN Reason: Pain/Fever Albuterol/Ipratropium (Albuterol/Ipratropium 3.0-0.5 Mg/3 Ml Neb Soln) 3 ml NEB Q4HRRT [facility] Last Admin: 04/21/21 03:04 Dose: 3 ml Documented by: LINDSAY Albuterol/Ipratropium (Albuterol/Ipratropium 4 Gm Inhalation Mcdonough) 0 gm INH Q4H PRN PRN Reason: Dyspnea Enoxaparin Sodium (Enoxaparin 40 Mg/0.4 Ml Syringe) 40 mg SUBCUT DAILY [facility] Guaifenesin/Dextromethorphan (Guaifenesin/Dextromethorphan 100-10 Mg/5 Ml Soln 10 Ml Cup) 10 ml PO Q4H PRN PRN Reason: Cough Lactated Ringer's (Ringers, Lactated) 1,000 mls @ 999 mls/hr IV ASDIRECTED [facility] Last Admin: 04/20/21 22:39 Dose: 999 mls/hr Documented by: CARA Levofloxacin/Dextrose 750 mg/ (Premix) 150 mls @ 100 mls/hr IV DAILY [facility] Pantoprazole Sodium 40 mg/ (Sodium Chloride) 10 mls @ 300 mls/hr IV DAILY [facility] Methylprednisolone Sodium Succinate (Methylprednisolone Sodium Succinate 40 Mg/1 Ml Sdv) 40 mg IVPUSH Q8H [facility] Ondansetron HCl (Ondansetron 4 Mg/2 Ml Sdv) 4 mg IVPUSH Q4H PRN PRN Reason: Nausea/Vomiting Vancomycin HCl (Pharmacy To Dose - Vancomycin) 1 dose .XX ONETIME ONE Stop: 04/20/21 22:28 Labs: Laboratory Tests 04/20/21 04/20/21 04/20/21 Range/Units 22:45 23:00 23:00 WBC 8.47 (4.0-11.0) K/uL RBC 4.56 (4.30-5.90) M/uL Hgb 14.5 (12.0-16.0) g/dL Hct 47.6 H (36.0-46.0) % MCV 104.4 H (80.0-98.0) fL MCH 31.8 (27.0-32.0) pg MCHC 30.5 L (31.0-37.0) g/dL RDW Std Deviation 51.6 (28.0-62.0) fl RDW Coeff of Vera 14 (11.0-15.0) % Plt Count 161 (150-400) K/uL MPV 10.90 (7.40-12.00) fL Neut % (Auto) 77.0 (48.0-80.0) % Lymph % (Auto) 13.1 L (16.0-40.0) % [place] % (Auto) 9.4 (0.0-15.0) % Eos % (Auto) 0.4 (0.0-7.0) % Baso % (Auto) 0.1 (0.0-1.5) % Neut # (Auto) 6.5 H (1.4-5.7) K/uL Lymph # (Auto) 1.1 (0.6-2.4) K/uL [place] # (Auto) 0.8 (0.0-0.8) K/uL Eos # (Auto) 0.0 (0.0-0.7) K/uL Baso # (Auto) 0.0 (0.0-0.1) K/uL Nucleated RBC % 0.0 /100WBC Nucleated RBCs # 0 K/uL INR Sodium 141 (136-145) mmol/L Potassium 4.2 (3.5-5.1) mmol/L Chloride 96 L (98-107) mmol/L Carbon Dioxide 46.1 H (21.0-32.0) mmol/L BUN 7 (7.0-18.0) mg/dL Creatinine 0.5 L (0.6-1.0) mg/dL Est Cr Clr Drug Dosing 121.81 mL/min Estimated GFR (MDRD) > 60.0 ml/min Glucose 125 H (74-106) mg/dL Lactic Acid 0.6 (0.4-2.0) mmol/L Calcium 8.9 (8.5-10.1) mg/dL Magnesium 1.9 (1.8-2.4) mg/dL Troponin I < 0.050 (0.000-0.056) ng/mL B-Natriuretic Peptide (<100) PG/ML SARS-CoV-2 RNA (RUBIN) (NEGATIVE) 04/20/21 04/20/21 04/20/21 Range/Units 23:00 23:00 23:20 WBC (4.0-11.0) K/uL RBC (4.30-5.90) M/uL Hgb (12.0-16.0) g/dL Hct (36.0-46.0) % MCV (80.0-98.0) fL MCH (27.0-32.0) pg MCHC (31.0-37.0) g/dL RDW Std Deviation (28.0-62.0) fl RDW Coeff of Vera (11.0-15.0) % Plt Count (150-400) K/uL MPV (7.40-12.00) fL Neut % (Auto) (48.0-80.0) % Lymph % (Auto) (16.0-40.0) % [place] % (Auto) (0.0-15.0) % Eos % (Auto) (0.0-7.0) % Baso % (Auto) (0.0-1.5) % Neut # (Auto) (1.4-5.7) K/uL Lymph # (Auto) (0.6-2.4) K/uL [place] # (Auto) (0.0-0.8) K/uL Eos # (Auto) (0.0-0.7) K/uL Baso # (Auto) (0.0-0.1) K/uL Nucleated RBC % /100WBC Nucleated RBCs # K/uL INR 1.03 Sodium (136-145) mmol/L Potassium (3.5-5.1) mmol/L Chloride (98-107) mmol/L Carbon Dioxide (21.0-32.0) mmol/L BUN (7.0-18.0) mg/dL Creatinine (0.6-1.0) mg/dL Est Cr Clr Drug Dosing mL/min Estimated GFR (MDRD) ml/min Glucose (74-106) mg/dL Lactic Acid (0.4-2.0) mmol/L Calcium (8.5-10.1) mg/dL Magnesium (1.8-2.4) mg/dL Troponin I (0.000-0.056) ng/mL B-Natriuretic Peptide 81 (<100) PG/ML SARS-CoV-2 RNA (RUBIN) NEGATIVE (NEGATIVE) Meds: Medications Generic Name Dose Route Start Last Admin Trade Name Jeanna PRN Reason Stop Dose Admin Acetaminophen 650 mg 04/21/21 01:19 Acetaminophen 325 Mg Tab PO Q6H PRN Pain/Fever Albuterol/Ipratropium 3 ml 04/21/21 02:00 04/21/21 03:04 Albuterol/Ipratropium 3.0-0.5 Mg/3 Ml Neb Soln NEB 3 ml Q4HRRT [facility] Administration Albuterol/Ipratropium 0 gm 04/21/21 01:15 Albuterol/Ipratropium 4 Gm Inhalation Mcdonough INH Q4H PRN Dyspnea Enoxaparin Sodium 40 mg 04/21/21 09:00 Enoxaparin 40 Mg/0.4 Ml Syringe SUBCUT DAILY [facility] Guaifenesin/Dextromethorphan 10 ml 04/21/21 01:20 Guaifenesin/Dextromethorphan 100-10 Mg/5 Ml Soln 10 Ml Cup PO Q4H PRN Cough Lactated Ringer's 1,000 mls @ 999 mls/hr 04/20/21 22:30 04/20/21 22:39 Ringers, Lactated IV 999 mls/hr ASDIRECTED [facility] Administration Levofloxacin/Dextrose 750 mg/ 150 mls @ 100 mls/hr 04/21/21 09:00 Premix IV DAILY [facility] Pantoprazole Sodium 40 mg/ 10 mls @ 300 mls/hr 04/21/21 09:00 Sodium Chloride IV DAILY [facility] Methylprednisolone Sodium Succinate 40 mg 04/21/21 06:00 Methylprednisolone Sodium Succinate 40 Mg/1 Ml Sdv IVPUSH Q8H [facility] Ondansetron HCl 4 mg 04/21/21 01:20 Ondansetron 4 Mg/2 Ml Sdv IVPUSH Q4H PRN Nausea/Vomiting Vancomycin HCl 1 dose 04/20/21 22:27 Pharmacy To Dose - Vancomycin .XX 04/20/21 22:28 ONETIME ONE Discontinued Medications Generic Name Dose Route Start Last Admin Trade Name Vernq PRN Reason Stop Dose Admin Albuterol/Ipratropium 3 ml 04/20/21 22:09 04/20/21 22:21 Albuterol/Ipratropium 3.0-0.5 Mg/3 Ml Neb Soln NEB 04/20/21 22:10 3 ml ONETIME ONE Administration Albuterol/Ipratropium 3 ml 04/20/21 22:10 04/20/21 22:21 Albuterol/Ipratropium 3.0-0.5 Mg/3 Ml Neb Soln NEB 04/20/21 22:11 3 ml ONETIME ONE Administration Albuterol/Ipratropium 3 ml 04/20/21 22:10 04/20/21 22:21 Albuterol/Ipratropium 3.0-0.5 Mg/3 Ml Neb Soln NEB 04/20/21 22:11 3 ml ONETIME ONE Administration Cefepime HCl 2 gm/ Premix 50 mls @ 100 mls/hr 04/20/21 22:27 04/20/21 23:02 IV 04/20/21 22:56 100 mls/hr ONETIME ONE Administration Vancomycin HCl 2 gm/ Premix 400 mls @ 200 mls/hr 04/20/21 23:00 04/20/21 23:31 IV 04/21/21 00:59 200 mls/hr NOW ONE Administration Vancomycin HCl 2 gm/ Premix 400 mls @ 200 mls/hr 04/21/21 11:30 IV Q12H [facility] Prednisone 60 mg 04/20/21 22:10 04/20/21 22:20 Prednisone 20 Mg Tab PO 04/20/21 22:11 60 mg ONETIME ONE Administration Departure - Departure Time of Disposition: 00:52 Disposition: Admitted As Inpatient 68 Condition: Serious Clinical Impression: Respiratory failure with hypoxia - Discharge Information Sepsis Event Note (ED) - Evaluation Sepsis Screening Result: No Definite Risk - Focused Exam Vital Signs: Vital Signs Temp Pulse Resp BP Pulse Ox 04/21/21 00:00 90 22 H 122/74 90 L 04/20/21 23:00 36.5 C 93 22 H 118/71 96 04/20/21 22:00 36.4 C 90 22 H 102/48 L 91 L 04/20/21 21:18 92 20 86 L 04/20/21 20:58 36.5 C 22 H 114/73 82 L - My Orders Last 24 Hours: My Active Orders 04/20/21 21:17 Cardiac Monitoring [RC] . DIRECTED Pulse Oximetry [RC] ASDIRECTED 04/20/21 22:09 RT Aerosol Therapy [RC] ASDIRECTED 04/20/21 22:10 RT Aerosol Therapy [RC] ASDIRECTED RT Aerosol Therapy [RC] ASDIRECTED 04/20/21 22:27 Pharmacy to Dose - Vancomycin 1 dose .XX ONETIME ONE Blood Culture x2 Reflex Set [OM.PC] Stat 04/20/21 22:30 Lactated Ringers [Ringers, Lactated] 1,000 ml IV ASDIRECTED 04/20/21 22:45 CULTURE BLOOD [BC] Stat 04/20/21 22:55 CULTURE BLOOD [BC] Stat 04/22/21 10:30 VANCOMYCIN TROUGH [CHEM] Timed - Assessment/Plan Last 24 Hours: My Active Orders 04/20/21 21:17 Cardiac Monitoring [RC] . DIRECTED Pulse Oximetry [RC] ASDIRECTED 04/20/21 22:09 RT Aerosol Therapy [RC] ASDIRECTED 04/20/21 22:10 RT Aerosol Therapy [RC] ASDIRECTED RT Aerosol Therapy [RC] ASDIRECTED 04/20/21 22:27 Pharmacy to Dose - Vancomycin 1 dose .XX ONETIME ONE Blood Culture x2 Reflex Set [OM.PC] Stat 04/20/21 22:30 Lactated Ringers [Ringers, Lactated] 1,000 ml IV ASDIRECTED 04/20/21 22:45 CULTURE BLOOD [BC] Stat 04/20/21 22:55 CULTURE BLOOD [BC] Stat 04/22/21 10:30 VANCOMYCIN TROUGH [CHEM] Timed
[2021-04-21] MEDS ORDERED: Albuterol/Ipratropium 4 GM Inhalation Spray INH PRN (01:15)
[2021-04-21] MEDS ORDERED: Acetaminophen 325 MG Tab PO PRN (01:19)
[2021-04-21] MEDS ORDERED: Ondansetron 4 MG/2 ML SDV IVPUSH PRN (01:20)
[2021-04-21] MEDS ORDERED: guaiFENesin/Dextromethorphan 100-10 MG/5 ML Soln 10 ML Cup PO PRN (01:20)
[2021-04-21] MEDS: Albuterol/Ipratropium 3.0-0.5 MG/3 ML Neb Soln NEB SCH ×6 (03:04→21:58)
[2021-04-21] MEDS: methylPREDNISolone Sodium Succinate 40 MG/1 ML SDV IVPUSH SCH ×3 (05:08→21:59)
[2021-04-21 06:29] LABS: BLOOD UREA NITROGEN,BUN 8 mg/dL (7.0-18.0); CHLORIDE,CL 96 mmol/L (98-107); GLUCOSE RANDOM 205 mg/dL (74-106); POTASSIUM,K 4.7 mmol/L (3.5-5.1); SODIUM,NA 138 mmol/L (136-145)
[2021-04-21 06:38] LABS: CARBON DIOXIDE,CO2 45.4 mmol/L (21.0-32.0)
--- NOTE | 2021-04-21 07:31 | PCM.HP.2 ---
<Kasey Lopez - Last Filed: 04/21/21 10:32> H&P History of Present Illness - General Date of Service: 04/21/21 Admit Problem/Dx: Admission Diagnosis/Problem Admission Diagnosis/Problem Respiratory failure - History of Present Illness Initial Comments - Free Text/Narative: The patient is a 55-year-old female, on day 1 of service, with a significant past medical history of chronic obstructive pulmonary disease with 4 L of oxygen at home, congestive heart failure, and hypertension, who was admitted to the medical floor due to a COPD exacerbation. Approximately 1 week ago the patient started to have worsening shortness of breath, and cough productive of clear sputum devoid of any mucus or blood. The patient has had COPD exacerbations in the past and feels this is similar. She tried her inhalers at home but they provided little to no relief. She denies fever, chills, chest pain, palpitations, recent sick contacts, history of pulmonary embolism or DVT, and recent travel. With respect to family history the patient admits to hypertension in both her parents. In regards to her social history the patient admits to a 30-year history of cigarette smoking, half a pack per day, but denies alcohol consumption and recreational drug use. She has no other health concerns at this time. On CBC, her white blood cell count is 7.80, hemoglobin is 14.5, hematocrit is 48, platelets is 171, and MCV is 103.9. On CMP, her sodium is 138, potassium is 4.7, chloride is 96, carbon dioxide is 45.4, BUN is 8, creatinine is 0.4, glucose is 205, lactic acid is 0.6. On chest x-ray, she has right-sided airway opacities representing either infection or some other inflammatory process. In the emergency department, she received 3 DuoNeb treatments, Solu-Medrol, her chest x-ray done, due to her past medical history BNP and troponin were drawn, blood cultures, lactic acid, and INR were also investigated. She also received cefepime and vancomycin, and had a 1000 mL bolus of lactated Ringer's. - Related Data Allergies/Adverse Reactions: Allergies Allergy/AdvReac Type Severity Reaction Status Date / Time cephalexin [From Keflex] Allergy Hives Verified 04/20/21 21:12 diclofenac Allergy Rash Verified 04/20/21 21:12 oxycodone [From Percocet] Allergy Rash Verified 04/20/21 21:12 Home Medications: Home Meds Albuterol Sulfate 2.5 mg NEB Q4H PRN 12/05/19 [History] Cholecalciferol (Vitamin D3) [Vitamin D3] 25 mcg PO DAILY 12/05/19 [History] Multivitamin [Multi-Vitamin Daily] 1 tab PO DAILY 12/05/19 [History] lisinopriL [Lisinopril] 10 mg PO DAILY 12/05/19 [History] Albuterol [Ventolin HFA] 2 inh INH Q4H PRN 08/06/20 [History] Fluticasone/Umeclidin/Vilanter [Trelegy Ellipta 100-62.5-25 MCG] 1 puff INH DAILY 08/06/20 [History] Furosemide [Lasix] 40 mg PO DAILY 08/06/20 [History] Aspirin [Halfprin] 81 mg PO DAILY 12/04/20 [History] Melatonin 5 mg PO BEDTIME PRN 12/04/20 [History] Past Medical History HEENT History: Reports: Other (See Below) Other HEENT History: sinus issues Cardiovascular History: Reports: High Cholesterol, Hypertension Respiratory History: Reports: Bronchitis, Recurrent, COPD, Sleep Apnea Gastrointestinal History: Reports: None Genitourinary History: Reports: None [employer] History: Reports: Musculoskeletal History: Reports: Back Pain, Chronic Neurological History: Reports: None Psychiatric History: Reports: None Endocrine/Metabolic History: Reports: Obesity/BMI 30+ Hematologic History: Reports: None Immunologic History: Reports: None Oncologic (Cancer) History: Reports: None Dermatologic History: Reports: None - Infectious Disease History Infectious Disease History: Reports: Chicken Pox - Past Surgical History Head Surgeries/Procedures: Reports: None HEENT Surgical History: Reports: Tonsillectomy Cardiovascular Surgical History: Reports: None Respiratory Surgical History: Reports: None GI Surgical History: Reports: Cholecystectomy Female Surgical History: Reports: Tubal Ligation Endocrine Surgical History: Reports: None Musculoskeletal Surgical History: Reports: Other (See Below) Other Musculoskeletal Surgeries/Procedures:: Left arm surgery Social & Family History - Family History Family Medical History: No Pertinent Family History - Tobacco Use Tobacco Use Status *Q: Former Tobacco User Years of Tobacco use: 30 Used Tobacco, but Quit: Yes Month/Year Tobacco Last Used: 02/2021 Tobacco Use Comment: last uses was february 2021 - Caffeine Use Caffeine Use: Reports: Coffee, Soda, Tea Caffeine Use Comment: seldom drinks energy drinks - Recreational Drug Use Recreational Drug Use: No - Living Situation & Occupation Occupation: Employed H&P Review of Systems - Review of Systems: Review Of Systems: See Below General: Reports: Fatigue. Denies: Fever, Chills HEENT: Denies: Headaches Pulmonary: Reports: Shortness of Breath, Wheezing, Cough, Sputum Cardiovascular: Denies: Chest Pain, Palpitations Gastrointestinal: Denies: Abdominal Pain, Nausea, Vomiting Genitourinary: Denies: Dysuria Skin: Denies: Diaphoresis Neurological: Denies: Confusion, Dizziness Exam - Exam Exam: See Below - Vital Signs Vital Signs: Last Vital Signs Temp 97.7 F 04/21/21 04:11 Pulse 100 04/21/21 04:11 Resp 21 H 04/21/21 04:11 BP 129/67 04/21/21 04:11 Pulse Ox 91 L 04/21/21 04:11 Weight: 102.965 kg - Exam General: Alert, Oriented, Cooperative HEENT: Normal Nasal Septum, Pupils Equal, Other (Dry mucous membranes) Neck: No: Lymphadenopathy Lungs: Wheezing Cardiovascular: Regular Rate, Regular Rhythm GI/Abdominal Exam: Normal Bowel Sounds, Soft, Non-Tender Extremities: No Pedal Edema - Patient Data Lab Results Last 24 hrs: Laboratory Results - last 24 hr 04/20/21 04/20/21 04/20/21 Range/Units 22:45 23:00 23:00 WBC 8.47 (4.0-11.0) K/uL RBC 4.56 (4.30-5.90) M/uL Hgb 14.5 (12.0-16.0) g/dL Hct 47.6 H (36.0-46.0) % MCV 104.4 H (80.0-98.0) fL MCH 31.8 (27.0-32.0) pg MCHC 30.5 L (31.0-37.0) g/dL RDW Std Deviation 51.6 (28.0-62.0) fl RDW Coeff of Vera 14 (11.0-15.0) % Plt Count 161 (150-400) K/uL MPV 10.90 (7.40-12.00) fL Neut % (Auto) 77.0 (48.0-80.0) % Lymph % (Auto) 13.1 L (16.0-40.0) % Walsh % (Auto) 9.4 (0.0-15.0) % Eos % (Auto) 0.4 (0.0-7.0) % Baso % (Auto) 0.1 (0.0-1.5) % Neut # (Auto) 6.5 H (1.4-5.7) K/uL Lymph # (Auto) 1.1 (0.6-2.4) K/uL Walsh # (Auto) 0.8 (0.0-0.8) K/uL Eos # (Auto) 0.0 (0.0-0.7) K/uL Baso # (Auto) 0.0 (0.0-0.1) K/uL Nucleated RBC % 0.0 /100WBC Nucleated RBCs # 0 K/uL INR Sodium 141 (136-145) mmol/L Potassium 4.2 (3.5-5.1) mmol/L Chloride 96 L (98-107) mmol/L Carbon Dioxide 46.1 H (21.0-32.0) mmol/L BUN 7 (7.0-18.0) mg/dL Creatinine 0.5 L (0.6-1.0) mg/dL Est Cr Clr Drug Dosing 121.81 mL/min Estimated GFR (MDRD) > 60.0 ml/min Glucose 125 H (74-106) mg/dL Lactic Acid 0.6 (0.4-2.0) mmol/L Calcium 8.9 (8.5-10.1) mg/dL Phosphorus (2.6-4.7) mg/dL Magnesium 1.9 (1.8-2.4) mg/dL Troponin I < 0.050 (0.000-0.056) ng/mL B-Natriuretic Peptide (<100) PG/ML SARS-CoV-2 RNA (RUBIN) (NEGATIVE) 04/20/21 04/20/21 04/20/21 Range/Units 23:00 23:00 23:20 WBC (4.0-11.0) K/uL RBC (4.30-5.90) M/uL Hgb (12.0-16.0) g/dL Hct (36.0-46.0) % MCV (80.0-98.0) fL MCH (27.0-32.0) pg MCHC (31.0-37.0) g/dL RDW Std Deviation (28.0-62.0) fl RDW Coeff of Vear (11.0-15.0) % Plt Count (150-400) K/uL MPV (7.40-12.00) fL Neut % (Auto) (48.0-80.0) % Lymph % (Auto) (16.0-40.0) % Walsh % (Auto) (0.0-15.0) % Eos % (Auto) (0.0-7.0) % Baso % (Auto) (0.0-1.5) % Neut # (Auto) (1.4-5.7) K/uL Lymph # (Auto) (0.6-2.4) K/uL Walsh # (Auto) (0.0-0.8) K/uL Eos # (Auto) (0.0-0.7) K/uL Baso # (Auto) (0.0-0.1) K/uL Nucleated RBC % /100WBC Nucleated RBCs # K/uL INR 1.03 Sodium (136-145) mmol/L Potassium (3.5-5.1) mmol/L Chloride (98-107) mmol/L Carbon Dioxide (21.0-32.0) mmol/L BUN (7.0-18.0) mg/dL Creatinine (0.6-1.0) mg/dL Est Cr Clr Drug Dosing mL/min Estimated GFR (MDRD) ml/min Glucose (74-106) mg/dL Lactic Acid (0.4-2.0) mmol/L Calcium (8.5-10.1) mg/dL Phosphorus (2.6-4.7) mg/dL Magnesium (1.8-2.4) mg/dL Troponin I (0.000-0.056) ng/mL B-Natriuretic Peptide 81 (<100) PG/ML SARS-CoV-2 RNA (RUBIN) NEGATIVE (NEGATIVE) 04/21/21 04/21/21 Range/Units 05:34 05:34 WBC 7.80 (4.0-11.0) K/uL RBC 4.62 (4.30-5.90) M/uL Hgb 14.5 (12.0-16.0) g/dL Hct 48.0 H (36.0-46.0) % MCV 103.9 H (80.0-98.0) fL MCH 31.4 (27.0-32.0) pg MCHC 30.2 L (31.0-37.0) g/dL RDW Std Deviation 51.4 (28.0-62.0) fl RDW Coeff of Vera 14 (11.0-15.0) % Plt Count 171 (150-400) K/uL MPV 11.20 (7.40-12.00) fL Neut % (Auto) 92.1 H (48.0-80.0) % Lymph % (Auto) 6.0 L (16.0-40.0) % Walsh % (Auto) 1.8 (0.0-15.0) % Eos % (Auto) 0.0 (0.0-7.0) % Baso % (Auto) 0.1 (0.0-1.5) % Neut # (Auto) 7.2 H (1.4-5.7) K/uL Lymph # (Auto) 0.5 L (0.6-2.4) K/uL Walsh # (Auto) 0.1 (0.0-0.8) K/uL Eos # (Auto) 0.0 (0.0-0.7) K/uL Baso # (Auto) 0.0 (0.0-0.1) K/uL Nucleated RBC % 0.0 /100WBC Nucleated RBCs # 0 K/uL INR Sodium 138 (136-145) mmol/L Potassium 4.7 (3.5-5.1) mmol/L Chloride 96 L (98-107) mmol/L Carbon Dioxide 45.4 H (21.0-32.0) mmol/L BUN 8 (7.0-18.0) mg/dL Creatinine 0.4 L (0.6-1.0) mg/dL Est Cr Clr Drug Dosing 152.26 mL/min Estimated GFR (MDRD) > 60.0 ml/min Glucose 205 H (74-106) mg/dL Lactic Acid (0.4-2.0) mmol/L Calcium 8.5 (8.5-10.1) mg/dL Phosphorus 3.2 (2.6-4.7) mg/dL Magnesium 1.9 (1.8-2.4) mg/dL Troponin I (0.000-0.056) ng/mL B-Natriuretic Peptide (<100) PG/ML SARS-CoV-2 RNA (RUBIN) (NEGATIVE) Result Diagrams: 04/21/21 05:34 04/21/21 05:34 Sepsis Event Note - Evaluation Sepsis Screening Result: No Definite Risk - Focused Exam Vital Signs: Vital Signs Temp Pulse Resp BP Pulse Ox Pulse Ox 04/21/21 04:11 97.7 F 100 21 H 129/67 91 L 04/21/21 01:24 98.4 F 93 22 H 134/80 91 L 04/21/21 01:16 91 L 04/21/21 00:00 90 22 H 122/74 90 L 04/20/21 23:00 97.7 F 93 22 H 118/71 96 04/20/21 22:00 97.5 F 90 22 H 102/48 L 91 L 04/20/21 21:18 92 20 86 L 04/20/21 20:58 97.7 F 22 H 114/73 82 L - Problem List (1) HTN (hypertension) SNOMED Code(s): 85171770 ICD Code: I10 - ESSENTIAL (PRIMARY) HYPERTENSION Status: Acute Current Visit: Yes (2) CHF (congestive heart failure) SNOMED Code(s): 35172909 ICD Code: I50.9 - HEART FAILURE, UNSPECIFIED Status: Acute Current Visit: No (3) COPD (chronic obstructive pulmonary disease) SNOMED Code(s): 69120752 ICD Code: J44.9 - CHRONIC OBSTRUCTIVE PULMONARY DISEASE, UNSPECIFIED Status: Acute Current Visit: No (4) COPD exacerbation SNOMED Code(s): 515771101 ICD Code: J44.1 - CHRONIC OBSTRUCTIVE PULMONARY DISEASE W (ACUTE) EXACERBATION Status: Acute Current Visit: No (5) Community acquired pneumonia SNOMED Code(s): 902213372 ICD Code: J18.9 - PNEUMONIA, UNSPECIFIED ORGANISM Status: Acute Current Visit: No Qualifiers: Laterality: right Lung location: lower lobe of lung Qualified Code(s): J18.9 - Pneumonia, unspecified organism Problem List Initiated/Reviewed/Updated: Yes Orders Last 24hrs: Active Orders 24 hr Category Date Time Status Admission Status [Patient Status] [ADT] Stat ADT 04/21/21 00:50 Active Cardiac Monitoring [RC] . DIRECTED Care 04/20/21 21:17 Active Oxygen Therapy [RC] ASDIRECTED Care 04/21/21 01:16 Active Pulse Oximetry [RC] ASDIRECTED Care 04/20/21 21:17 Active RT Aerosol Therapy [RC] ASDIRECTED Care 04/20/21 22:09 Active RT Aerosol Therapy [RC] ASDIRECTED Care 04/20/21 22:10 Active RT Aerosol Therapy [RC] ASDIRECTED Care 04/20/21 22:10 Active RT Aerosol Therapy [RC] ASDIRECTED Care 04/21/21 01:15 Active RT Post Treatment Assessment [RC] Click to Edit Care 04/21/21 01:16 Active RT Pre-Treatment Assessment [RC] Click to Edit Care 04/21/21 01:16 Active Telemetry Monitoring [Cardiac Monitoring] [RC] Q8H Care 04/21/21 01:08 Active Regular Diet [DIET] Diet 04/21/21 Breakfast Active CULTURE BLOOD [BC] Stat Lab 04/20/21 22:45 Received CULTURE BLOOD [BC] Stat Lab 04/20/21 22:55 Received VANCOMYCIN TROUGH [CHEM] Timed Lab 04/22/21 10:30 Ordered Acetaminophen [TylenoL] Med 04/21/21 01:19 Active 650 mg PO Q6H PRN Albuterol/Ipratropium [Combivent Respimat] Med 04/21/21 01:15 Active See Dose Instructions INH Q4H PRN Albuterol/Ipratropium [DuoNeb 3.0-0.5 MG/3 ML] Med 04/21/21 02:00 Active 3 ml NEB Q4HRRT Dextromethorphan/guaiFENesin [Robitussin DM] Med 04/21/21 01:20 Active 10 ml PO Q4H PRN Enoxaparin [Lovenox] Med 04/21/21 09:00 Active 40 mg SUBCUT DAILY Lactated Ringers [Ringers, Lactated] 1,000 ml Med 04/20/21 22:30 Active IV ASDIRECTED Levofloxacin/Dextrose 5%-Water [Levaquin in D5W 750 MG/ Med 04/21/21 09:00 Active 150 ML] 750 mg Premix Bag 1 bag IV DAILY Ondansetron [Zofran] Med 04/21/21 01:20 Active 4 mg IVPUSH Q4H PRN Pantoprazole [ProTONIX IV] 40 mg Med 04/21/21 09:00 Active Sodium Chloride 0.9% [Normal Saline] 10 ml IV DAILY methylPREDNISolone Sod Succ [Solu-MEDROL] Med 04/21/21 06:00 Active 40 mg IVPUSH Q8H Blood Culture x2 Reflex Set [OM.PC] Stat Oth 04/20/21 22:27 Ordered Medication Orders Acetaminophen (Acetaminophen 325 Mg Tab) 650 mg PO Q6H PRN PRN Reason: Pain/Fever Albuterol/Ipratropium (Albuterol/Ipratropium 3.0-0.5 Mg/3 Ml Neb Soln) 3 ml NEB Q4HRRT [facility] Last Admin: 04/21/21 05:08 Dose: 3 ml Documented by: Admin: 04/21/21 03:04 Dose: 3 ml Documented by: LINDSAY Albuterol/Ipratropium (Albuterol/Ipratropium 4 Gm Inhalation [place]) 0 gm INH Q4H PRN PRN Reason: Dyspnea Enoxaparin Sodium (Enoxaparin 40 Mg/0.4 Ml Syringe) 40 mg SUBCUT DAILY [facility] Guaifenesin/Dextromethorphan (Guaifenesin/Dextromethorphan 100-10 Mg/5 Ml Soln 10 Ml Cup) 10 ml PO Q4H PRN PRN Reason: Cough Lactated Ringer's (Ringers, Lactated) 1,000 mls @ 999 mls/hr IV ASDIRECTED [facility] Last Admin: 04/20/21 22:39 Dose: 999 mls/hr Documented by: CARA Levofloxacin/Dextrose 750 mg/ (Premix) 150 mls @ 100 mls/hr IV DAILY [facility] Pantoprazole Sodium 40 mg/ (Sodium Chloride) 10 mls @ 300 mls/hr IV DAILY [facility] Methylprednisolone Sodium Succinate (Methylprednisolone Sodium Succinate 40 Mg/1 Ml Sdv) 40 mg IVPUSH Q8H [facility] Last Admin: 04/21/21 05:08 Dose: 40 mg Documented by: DANIMER Ondansetron HCl (Ondansetron 4 Mg/2 Ml Sdv) 4 mg IVPUSH Q4H PRN PRN Reason: Nausea/Vomiting Assessment/Plan Comment:: Admit the patient to the medical floor, vitals per unit routine, activity up ad bob., regular diet, for DVT prophylaxis Lovenox 40 mg subcutaneously every 24 hours, for GI prophylaxis pantoprazole 40 mg per IV route every 24 hours, the patient is full code 1. COPD exacerbation -The patient has duo nebs and Combivent in place every 4 hours for shortness of breath -The patient has Robitussin-DM 10 mL every [address] for cough -Solu-Medrol 40 mg per IV route every [address] to decrease inflammation -Provide oxygen as needed via nasal cannula 2. Right lower lobe pneumonia -Levaquin 750 mg per IV route every [address] for antibiotic coverage -We will continue to monitor the patient through daily CBC and clinical status -Zofran 4 mg per IV route every 4 hours is on board 3. Macrocytosis -B12 and folate level has been ordered and we will treat accordingly -Continue to monitor through daily CBC 4. PMH of CHF and HTN -We will treat the patient as needed and if appropriate <Mickey Palafox - Last Filed: 04/22/21 16:41> H&P History of Present Illness - General Admit Problem/Dx: Admission Diagnosis/Problem Admission Diagnosis/Problem Respiratory failure Exam - Vital Signs Vital Signs: Last Vital Signs Temp 36.5 C 04/22/21 11:55 Pulse 99 04/22/21 11:55 Resp 18 04/22/21 11:55 BP 111/55 L 04/22/21 13:01 Pulse Ox 88 L 04/22/21 11:55 - Patient Data Lab Results Last 24 hrs: Laboratory Results - last 24 hr 04/21/21 04/22/21 04/22/21 Range/Units 19:30 06:05 06:05 WBC 8.27 (4.0-11.0) K/uL RBC 4.65 (4.30-5.90) M/uL Hgb 14.5 (12.0-16.0) g/dL Hct 47.3 H (36.0-46.0) % MCV 101.7 H (80.0-98.0) fL MCH 31.2 (27.0-32.0) pg MCHC 30.7 L (31.0-37.0) g/dL RDW Std Deviation 50.3 (28.0-62.0) fl RDW Coeff of Vera 14 (11.0-15.0) % Plt Count 189 (150-400) K/uL MPV 11.30 (7.40-12.00) fL Neut % (Auto) 88.4 H (48.0-80.0) % Lymph % (Auto) 5.7 L (16.0-40.0) % Walsh % (Auto) 5.9 (0.0-15.0) % Eos % (Auto) 0.0 (0.0-7.0) % Baso % (Auto) 0.0 (0.0-1.5) % Neut # (Auto) 7.3 H (1.4-5.7) K/uL Lymph # (Auto) 0.5 L (0.6-2.4) K/uL Walsh # (Auto) 0.5 (0.0-0.8) K/uL Eos # (Auto) 0.0 (0.0-0.7) K/uL Baso # (Auto) 0.0 (0.0-0.1) K/uL Nucleated RBC % 0.0 /100WBC Nucleated RBCs # 0 K/uL ABG pH 7.39 (7.35-7.45) ABG pCO2 73 H (35-45) mmHG ABG pO2 55 L (80-105) mmHG ABG HCO3 44 H (22-26) mEq/L ABG Total CO2 39.5 H (23-27) mmol/L ABG Base Excess 15.3 H (-2.0-3.0) Sodium 139 (136-145) mmol/L Potassium 5.3 H (3.5-5.1) mmol/L Chloride 95 L (98-107) mmol/L Carbon Dioxide 48.2 H (21.0-32.0) mmol/L BUN 12 (7.0-18.0) mg/dL Creatinine 0.4 L (0.6-1.0) mg/dL Est Cr Clr Drug Dosing 152.26 mL/min Estimated GFR (MDRD) > 60.0 ml/min Glucose 138 H (74-106) mg/dL Calcium 8.6 (8.5-10.1) mg/dL Total Bilirubin 0.2 (0.2-1.0) mg/dL AST 10 L (15-37) IU/L ALT 21 (14-63) IU/L Alkaline Phosphatase 111 (46-116) U/L Troponin I (0.000-0.056) ng/mL Total Protein 6.6 (6.4-8.2) g/dL Albumin 2.8 L (3.4-5.0) g/dL Globulin 3.8 (2.6-4.0) g/dL Albumin/Globulin Ratio 0.7 L (0.9-1.6) Vancomycin Trough (5.0-10.0) ug/mL 04/22/21 04/22/21 Range/Units 10:42 10:42 WBC (4.0-11.0) K/uL RBC (4.30-5.90) M/uL Hgb (12.0-16.0) g/dL Hct (36.0-46.0) % MCV (80.0-98.0) fL MCH (27.0-32.0) pg MCHC (31.0-37.0) g/dL RDW Std Deviation (28.0-62.0) fl RDW Coeff of Vera (11.0-15.0) % Plt Count (150-400) K/uL MPV (7.40-12.00) fL Neut % (Auto) (48.0-80.0) % Lymph % (Auto) (16.0-40.0) % Walsh % (Auto) (0.0-15.0) % Eos % (Auto) (0.0-7.0) % Baso % (Auto) (0.0-1.5) % Neut # (Auto) (1.4-5.7) K/uL Lymph # (Auto) (0.6-2.4) K/uL Walsh # (Auto) (0.0-0.8) K/uL Eos # (Auto) (0.0-0.7) K/uL Baso # (Auto) (0.0-0.1) K/uL Nucleated RBC % /100WBC Nucleated RBCs # K/uL ABG pH (7.35-7.45) ABG pCO2 (35-45) mmHG ABG pO2 (80-105) mmHG ABG HCO3 (22-26) mEq/L ABG Total CO2 (23-27) mmol/L ABG Base Excess (-2.0-3.0) Sodium (136-145) mmol/L Potassium (3.5-5.1) mmol/L Chloride (98-107) mmol/L Carbon Dioxide (21.0-32.0) mmol/L BUN (7.0-18.0) mg/dL Creatinine (0.6-1.0) mg/dL Est Cr Clr Drug Dosing mL/min Estimated GFR (MDRD) ml/min Glucose (74-106) mg/dL Calcium (8.5-10.1) mg/dL Total Bilirubin (0.2-1.0) mg/dL AST (15-37) IU/L ALT (14-63) IU/L Alkaline Phosphatase (46-116) U/L Troponin I < 0.050 (0.000-0.056) ng/mL Total Protein (6.4-8.2) g/dL Albumin (3.4-5.0) g/dL Globulin (2.6-4.0) g/dL Albumin/Globulin Ratio (0.9-1.6) Vancomycin Trough 0.6 L (5.0-10.0) ug/mL Result Diagrams: 04/22/21 06:05 04/22/21 06:05 [place] Results Last 24 hrs: Microbiology 04/20/21 22:55 Aerobic Blood Culture - Preliminary Blood - Venous - Lab Draw NO GROWTH AFTER 1 DAY Anaerobic Blood Culture - Preliminary NO GROWTH AFTER 1 DAY 04/20/21 22:45 Aerobic Blood Culture - Preliminary Blood - Venous NO GROWTH AFTER 1 DAY Anaerobic Blood Culture - Preliminary NO GROWTH AFTER 1 DAY Sepsis Event Note - Focused Exam Vital Signs: Vital Signs Temp Pulse Resp BP BP Pulse Ox 04/22/21 13:01 111/55 L 04/22/21 11:55 36.5 C 99 18 111/55 L 88 L 04/22/21 08:41 36.3 C 102 H 18 124/69 88 L 04/22/21 05:53 35.9 C L 83 18 121/88 91 L Orders Last 24hrs: Active Orders 24 hr Category Date Time Status CBC WITH AUTO DIFF [HEME] AM Lab 04/23/21 05:11 Ordered CBC WITH AUTO DIFF [HEME] AM Lab 04/24/21 05:11 Ordered CBC WITH AUTO DIFF [HEME] AM Lab 04/25/21 05:11 Ordered CBC WITH AUTO DIFF [HEME] AM Lab 04/26/21 05:11 Ordered CMP [COMPREHENSIVE METABOLIC PN,CMP] [CHEM] AM Lab 04/23/21 05:11 Ordered CMP [COMPREHENSIVE METABOLIC PN,CMP] [CHEM] AM Lab 04/24/21 05:11 Ordered CMP [COMPREHENSIVE METABOLIC PN,CMP] [CHEM] AM Lab 04/25/21 05:11 Ordered CMP [COMPREHENSIVE METABOLIC PN,CMP] [CHEM] AM Lab 04/26/21 05:11 Ordered Aspirin [Halfprin] Med 04/22/21 12:00 Active 81 mg PO DAILY Cholecalciferol (Vitamin D3) [Vitamin D3] Med 04/22/21 12:15 Active 25 mcg PO DAILY Furosemide [Lasix] Med 04/22/21 12:00 Active 40 mg PO DAILY Melatonin Med 04/22/21 12:11 Active 6 mg PO BEDTIME PRN Multivitamins [Tab-A-Cheo] Med 04/23/21 09:00 Active 1 tab PO DAILY Patient's Own Medication [Ptom] Med 04/23/21 09:00 Active 1 each INH DAILY lisinopriL [Prinivil] Med 04/22/21 12:00 Active 10 mg PO DAILY methylPREDNISolone Sod Succ [Solu-MEDROL] Med 04/22/21 15:52 Active 60 mg IVPUSH Q8H Medication Orders Acetaminophen (Acetaminophen 325 Mg Tab) 650 mg PO Q6H PRN PRN Reason: Pain/Fever Last Admin: 04/22/21 06:00 Dose: 650 mg Documented by: ARIEL Albuterol/Ipratropium (Albuterol/Ipratropium 3.0-0.5 Mg/3 Ml Neb Soln) 3 ml NEB Q4HRRT [facility] Last Admin: 04/22/21 13:42 Dose: 3 ml Documented by: Admin: 04/22/21 09:52 Dose: 3 ml Documented by: Admin: 04/22/21 05:54 Dose: 3 ml Documented by: Admin: 04/22/21 02:00 Dose: Not Given Documented by: Admin: 04/21/21 21:58 Dose: 3 ml Documented by: Admin: 04/21/21 17:12 Dose: 3 ml Documented by: Admin: 04/21/21 13:02 Dose: 3 ml Documented by: Admin: 04/21/21 09:43 Dose: 3 ml Documented by: Admin: 04/21/21 05:08 Dose: 3 ml Documented by: Admin: 04/21/21 03:04 Dose: 3 ml Documented by: [email or web address] Albuterol/Ipratropium (Albuterol/Ipratropium 4 Gm Inhalation [place]) 0 gm INH Q4 H PRN PRN Reason: Dyspnea Aspirin (Aspirin 81 Mg Tab.Ec) 81 mg PO DAILY [facility] Last Admin: 04/22/21 12:57 Dose: 81 mg Documented by: COLLEEN Cholecalciferol (Cholecalciferol (Vitamin D3) 25 Mcg Tab) 25 mcg PO DAILY [facility] Last Admin: 04/22/21 12:57 Dose: 25 mcg Documented by: COLLEEN Enoxaparin Sodium (Enoxaparin 40 Mg/0.4 Ml Syringe) 40 mg SUBCUT DAILY [facility] Last Admin: 04/22/21 09:01 Dose: Not Given Documented by: Admin: 04/21/21 09:53 Dose: Not Given Documented by: COLLEEN Furosemide (Furosemide 40 Mg Tab) 40 mg PO DAILY [facility] Last Admin: 04/22/21 12:57 Dose: 40 mg Documented by: COLLEEN Guaifenesin/Dextromethorphan (Guaifenesin/Dextromethorphan 100-10 Mg/5 Ml Soln 10 Ml Cup) 10 ml PO Q4H PRN PRN Reason: Cough Lactated Ringer's (Ringers, Lactated) 1,000 mls @ 999 mls/hr IV ASDIRECTED [facility] Last Admin: 04/20/21 22:39 Dose: 999 mls/hr Documented by: CARA Levofloxacin/Dextrose 750 mg/ (Premix) 150 mls @ 100 mls/hr IV DAILY [facility] Last Admin: 04/22/21 09:04 Dose: 100 mls/hr Documented by: RO Cosigned by: COLLEEN Infusion: 04/21/21 11:12 Dose: 100 mls/hr Documented by: RO Cosigned by: COLLEEN Admin: 04/21/21 09:42 Dose: 100 mls/hr Documented by: COLLEEN Pantoprazole Sodium 40 mg/ (Sodium Chloride) 10 mls @ 300 mls/hr IV DAILY [facility] Last Admin: 04/22/21 09:02 Dose: 300 mls/hr Documented by: RO Cosigned by: COLLEEN Infusion: 04/21/21 11:55 Dose: 300 mls/hr Documented by: RO Cosigned by: COLLEEN Admin: 04/21/21 11:53 Dose: 300 mls/hr Documented by: COLLEEN Lisinopril (Lisinopril 10 Mg Tab) 10 mg PO DAILY [facility] Last Admin: 04/22/21 13:01 Dose: Not Given Documented by: COLLEEN Melatonin (Melatonin 3 Mg Tab) 6 mg PO BEDTIME PRN PRN Reason: Sleep Methylprednisolone Sodium Succinate (Methylprednisolone Sodium Succinate 125 Mg/2 Ml Sdv) 60 mg IVPUSH Q8H [facility] Last Admin: 04/22/21 16:20 Dose: Not Given Documented by: COLLEEN Multivitamins/Minerals/Vitamin C (Multivitamin Tab) 1 tab PO DAILY [facility] Ondansetron HCl (Ondansetron 4 Mg/2 Ml Sdv) 4 mg IVPUSH Q4H PRN PRN Reason: Nausea/Vomiting Fluticasone/Umeclidin/Vilanter [ Trelegy Ellipta 100- 62.5- 1 each INH DAILY [facility] Assessment/Plan Comment:: I performed a history and physical exam of the patient and discussed management with resident. I have reviewed the residents note and agree with documented findings and plan unless otherwise specified in my note.
[2021-04-21] MEDS ORDERED: Pantoprazole 40 MG in Sodium Chloride 0.9% 10 ML IV SCH (09:00)
[2021-04-21] MEDS: Levofloxacin/Dextrose 5%-Water 750 MG in Premix Bag 1 BAG IV SCH (09:42)
[2021-04-21] MEDS: Enoxaparin 40 MG/0.4 ML Syringe SUBCUT SCH ×2 (09:43→09:53)
[2021-04-21] MEDS ORDERED: VANCOmycin 2 GM/400 ML 2 GM in Premix Bag 1 BAG IV SCH (11:30)
[2021-04-21] MEDS: Pantoprazole 40 MG in Sodium Chloride 0.9% 10 ML IV SCH (11:53)
[2021-04-22] MEDS: Albuterol/Ipratropium 3.0-0.5 MG/3 ML Neb Soln NEB SCH ×6 (02:00→21:49)
[2021-04-22] MEDS: methylPREDNISolone Sodium Succinate 40 MG/1 ML SDV IVPUSH SCH ×2 (05:55→13:01)
[2021-04-22 07:10] LABS: BLOOD UREA NITROGEN,BUN 12 mg/dL (7.0-18.0); CHLORIDE,CL 95 mmol/L (98-107); GLUCOSE RANDOM 138 mg/dL (74-106); POTASSIUM,K 5.3 mmol/L (3.5-5.1); SODIUM,NA 139 mmol/L (136-145)
[2021-04-22 07:54] LABS: CARBON DIOXIDE,CO2 48.2 mmol/L (21.0-32.0)
[2021-04-22] MEDS: Enoxaparin 40 MG/0.4 ML Syringe SUBCUT SCH (09:01)
[2021-04-22] MEDS: Pantoprazole 40 MG in Sodium Chloride 0.9% 10 ML IV SCH (09:02)
[2021-04-22] MEDS: Levofloxacin/Dextrose 5%-Water 750 MG in Premix Bag 1 BAG IV SCH (09:04)
--- NOTE | 2021-04-22 11:59 | PCM.PN ---
<Kasey Lopez - Last Filed: 04/22/21 11:52> - General Info Date of Service: 04/22/21 Subjective Update: The patient is a 55-year-old female, on day 2 of service, with a significant past medical history of chronic obstructive pulmonary disease with 4 L of oxygen at home, congestive heart failure, and hypertension, who was admitted to the medical floor due to a COPD exacerbation. Upon interview with the patient today she still complains of shortness of breath and cough productive of white sputum but feels much better than she did yesterday. In regards to her oxygen supplementation she is saturating at 91% on 5 L. She was concerned about restarting her home medications and as a result we will restart some and the others will be substituted by the hospital especially those for br eathing. She has no other concerns at this time. - Review of Systems General: Denies: Fever, Weakness, Fatigue HEENT: Denies: Headaches, Sore Throat Pulmonary: Reports: Shortness of Breath, Cough Cardiovascular: Denies: Chest Pain, Palpitations Gastrointestinal: Denies: Abdominal Pain Genitourinary: Denies: Dysuria - Patient Data Vitals - Most Recent: Last Vital Signs Temp 97.3 F 04/22/21 08:41 Pulse 102 H 04/22/21 08:41 Resp 18 04/22/21 08:41 BP 124/69 04/22/21 08:41 Pulse Ox 88 L 04/22/21 08:41 Weight - Most Recent: 102.965 kg I&O - Last 24 Hours: Intake & Output 04/21/21 04/22/21 04/22/21 22:59 06:59 14:59 Intake Total 1260 1100 Output Total 1000 400 Balance 260 700 Lab Results Last 24 Hours: Laboratory Results - last 24 hr 04/21/21 04/21/21 04/21/21 Range/Units 05:34 05:34 19:30 WBC (4.0-11.0) K/uL RBC (4.30-5.90) M/uL Hgb (12.0-16.0) g/dL Hct (36.0-46.0) % MCV (80.0-98.0) fL MCH (27.0-32.0) pg MCHC (31.0-37.0) g/dL RDW Std Deviation (28.0-62.0) fl RDW Coeff of Vera (11.0-15.0) % Plt Count (150-400) K/uL MPV (7.40-12.00) fL Neut % (Auto) (48.0-80.0) % Lymph % (Auto) (16.0-40.0) % [place] % (Auto) (0.0-15.0) % Eos % (Auto) (0.0-7.0) % Baso % (Auto) (0.0-1.5) % Neut # (Auto) (1.4-5.7) K/uL Lymph # (Auto) (0.6-2.4) K/uL [place] # (Auto) (0.0-0.8) K/uL Eos # (Auto) (0.0-0.7) K/uL Baso # (Auto) (0.0-0.1) K/uL Nucleated RBC % /100WBC Nucleated RBCs # K/uL ABG pH 7.39 (7.35-7.45) ABG pCO2 73 H (35-45) mmHG ABG pO2 55 L (80-105) mmHG ABG HCO3 44 H (22-26) mEq/L ABG Total CO2 39.5 H (23-27) mmol/L ABG Base Excess 15.3 H (-2.0-3.0) Sodium (136-145) mmol/L Potassium (3.5-5.1) mmol/L Chloride (98-107) mmol/L Carbon Dioxide (21.0-32.0) mmol/L BUN (7.0-18.0) mg/dL Creatinine (0.6-1.0) mg/dL Est Cr Clr Drug Dosing mL/min Estimated GFR (MDRD) ml/min Glucose (74-106) mg/dL Calcium (8.5-10.1) mg/dL Total Bilirubin (0.2-1.0) mg/dL AST (15-37) IU/L ALT (14-63) IU/L Alkaline Phosphatase (46-116) U/L Total Protein (6.4-8.2) g/dL Albumin (3.4-5.0) g/dL Globulin (2.6-4.0) g/dL Albumin/Globulin Ratio (0.9-1.6) Vitamin B12 624 (193-986) pg/mL Folate 59.10 H (8.60-58.90) ng/mL Vancomycin Trough (5.0-10.0) ug/mL 04/22/21 04/22/21 04/22/21 Range/Units 06:05 06:05 10:42 WBC 8.27 (4.0-11.0) K/uL RBC 4.65 (4.30-5.90) M/uL Hgb 14.5 (12.0-16.0) g/dL Hct 47.3 H (36.0-46.0) % MCV 101.7 H (80.0-98.0) fL MCH 31.2 (27.0-32.0) pg MCHC 30.7 L (31.0-37.0) g/dL RDW Std Deviation 50.3 (28.0-62.0) fl RDW Coeff of Vera 14 (11.0-15.0) % Plt Count 189 (150-400) K/uL MPV 11.30 (7.40-12.00) fL Neut % (Auto) 88.4 H (48.0-80.0) % Lymph % (Auto) 5.7 L (16.0-40.0) % [place] % (Auto) 5.9 (0.0-15.0) % Eos % (Auto) 0.0 (0.0-7.0) % Baso % (Auto) 0.0 (0.0-1.5) % Neut # (Auto) 7.3 H (1.4-5.7) K/uL Lymph # (Auto) 0.5 L (0.6-2.4) K/uL [place] # (Auto) 0.5 (0.0-0.8) K/uL Eos # (Auto) 0.0 (0.0-0.7) K/uL Baso # (Auto) 0.0 (0.0-0.1) K/uL Nucleated RBC % 0.0 /100WBC Nucleated RBCs # 0 K/uL ABG pH (7.35-7.45) ABG pCO2 (35-45) mmHG ABG pO2 (80-105) mmHG ABG HCO3 (22-26) mEq/L ABG Total CO2 (23-27) mmol/L ABG Base Excess (-2.0-3.0) Sodium 139 (136-145) mmol/L Potassium 5.3 H (3.5-5.1) mmol/L Chloride 95 L (98-107) mmol/L Carbon Dioxide 48.2 H (21.0-32.0) mmol/L BUN 12 (7.0-18.0) mg/dL Creatinine 0.4 L (0.6-1.0) mg/dL Est Cr Clr Drug Dosing 152.26 mL/min Estimated GFR (MDRD) > 60.0 ml/min Glucose 138 H (74-106) mg/dL Calcium 8.6 (8.5-10.1) mg/dL Total Bilirubin 0.2 (0.2-1.0) mg/dL AST 10 L (15-37) IU/L ALT 21 (14-63) IU/L Alkaline Phosphatase 111 (46-116) U/L Total Protein 6.6 (6.4-8.2) g/dL Albumin 2.8 L (3.4-5.0) g/dL Globulin 3.8 (2.6-4.0) g/dL Albumin/Globulin Ratio 0.7 L (0.9-1.6) Vitamin B12 (193-986) pg/mL Folate (8.60-58.90) ng/mL Vancomycin Trough 0.6 L (5.0-10.0) ug/mL [place] Results Last 24 Hours: Microbiology 04/20/21 22:55 Aerobic Blood Culture - Preliminary Blood - Venous - Lab Draw NO GROWTH AFTER 1 DAY Anaerobic Blood Culture - Preliminary NO GROWTH AFTER 1 DAY 04/20/21 22:45 Aerobic Blood Culture - Preliminary Blood - Venous NO GROWTH AFTER 1 DAY Anaerobic Blood Culture - Preliminary NO GROWTH AFTER 1 DAY Med Orders - Current: Current Medications Acetaminophen (Acetaminophen 325 Mg Tab) 650 mg PO Q6H PRN PRN Reason: Pain/Fever Last Admin: 04/22/21 06:00 Dose: 650 mg Documented by: Albuterol/Ipratropium (Albuterol/Ipratropium 3.0-0.5 Mg/3 Ml Neb Soln) 3 ml NEB Q4HRRT [facility] Last Admin: 04/22/21 09:52 Dose: 3 ml Documented by: Albuterol/Ipratropium (Albuterol/Ipratropium 4 Gm Inhalation [place]) 0 gm INH Q4H PRN PRN Reason: Dyspnea Aspirin (Aspirin 81 Mg Tab.Ec) 81 mg PO DAILY [facility] Enoxaparin Sodium (Enoxaparin 40 Mg/0.4 Ml Syringe) 40 mg SUBCUT DAILY [facility] Last Admin: 04/22/21 09:01 Dose: Not Given Documented by: Furosemide (Furosemide 40 Mg Tab) 40 mg PO DAILY [facility] Guaifenesin/Dextromethorphan (Guaifenesin/Dextromethorphan 100-10 Mg/5 Ml Soln 10 Ml Cup) 10 ml PO Q4H PRN PRN Reason: Cough Lactated Ringer's (Ringers, Lactated) 1,000 mls @ 999 mls/hr IV ASDIRECTED [facility] Last Admin: 04/20/21 22:39 Dose: 999 mls/hr Documented by: Levofloxacin/Dextrose 750 mg/ (Premix) 150 mls @ 100 mls/hr IV DAILY [facility] Last Admin: 04/22/21 09:04 Dose: 100 mls/hr Documented by: Pantoprazole Sodium 40 mg/ (Sodium Chloride) 10 mls @ 300 mls/hr IV DAILY [facility] Last Admin: 04/22/21 09:02 Dose: 300 mls/hr Documented by: Lisinopril (Lisinopril 10 Mg Tab) 10 mg PO DAILY [facility] Methylprednisolone Sodium Succinate (Methylprednisolone Sodium Succinate 40 Mg/1 Ml Sdv) 40 mg IVPUSH Q8H [facility] Last Admin: 04/22/21 05:55 Dose: 40 mg Documented by: Non-Formulary Medication (Cholecalciferol (Vitamin D3) [Vitamin D3]) 25 mcg PO DAILY [facility] Non-Formulary Medication (Melatonin [Melatonin]) 5 mg PO BEDTIME PRN PRN Reason: Sleep Non-Formulary Medication (Multivitamin [Multi-Vitamin Daily]) 1 tab PO DAILY [facility] Ondansetron HCl (Ondansetron 4 Mg/2 Ml Sdv) 4 mg IVPUSH Q4H PRN PRN Reason: Nausea/Vomiting Discontinued Medications Albuterol/Ipratropium (Albuterol/Ipratropium 3.0-0.5 Mg/3 Ml Neb Soln) 3 ml NEB ONETIME ONE Stop: 04/20/21 22:10 Last Admin: 04/20/21 22:21 Dose: 3 ml Documented by: Albuterol/Ipratropium (Albuterol/Ipratropium 3.0-0.5 Mg/3 Ml Neb Soln) 3 ml NEB ONETIME ONE Stop: 04/20/21 22:11 Last Admin: 04/20/21 22:21 Dose: 3 ml Documented by: Albuterol/Ipratropium (Albuterol/Ipratropium 3.0-0.5 Mg/3 Ml Neb Soln) 3 ml NEB ONETIME ONE Stop: 04/20/21 22:11 Last Admin: 04/20/21 22:21 Dose: 3 ml Documented by: Cefepime HCl 2 gm/ Premix 50 mls @ 100 mls/hr IV ONETIME ONE Stop: 04/20/21 22:56 Last Admin: 04/20/21 23:02 Dose: 100 mls/hr Documented by: Vancomycin HCl 2 gm/ Premix 400 mls @ 200 mls/hr IV NOW ONE Stop: 04/21/21 00:59 Last Admin: 04/20/21 23:31 Dose: 200 mls/hr Documented by: Vancomycin HCl 2 gm/ Premix 400 mls @ 200 mls/hr IV Q12H [facility] Pantoprazole Sodium 40 mg/ (Sodium Chloride) 10 mls @ 300 mls/hr IV DAILY [facility] Last Admin: 04/21/21 22:35 Dose: Not Given Documented by: Prednisone (Prednisone 20 Mg Tab) 60 mg PO ONETIME ONE Stop: 04/20/21 22:11 Last Admin: 04/20/21 22:20 Dose: 60 mg Documented by: Vancomycin HCl (Pharmacy To Dose - Vancomycin) 1 dose .XX ONETIME ONE Stop: 04/20/21 22:28 - Exam General: Alert, Oriented, Cooperative HEENT: Mucous Membr. Moist/[place] Neck: No: Lymphadenopathy Lungs: Wheezing Cardiovascular: Regular Rate, Regular Rhythm, No Murmurs GI/Abdominal Exam: Normal Bowel Sounds, Soft - Patient Data Lab Results Last 24 hrs: Laboratory Results - last 24 hr 04/21/21 04/21/21 04/21/21 Range/Units 05:34 05:34 19:30 WBC (4.0-11.0) K/uL RBC (4.30-5.90) M/uL Hgb (12.0-16.0) g/dL Hct (36.0-46.0) % MCV (80.0-98.0) fL MCH (27.0-32.0) pg MCHC (31.0-37.0) g/dL RDW Std Deviation (28.0-62.0) fl RDW Coeff of Vera (11.0-15.0) % Plt Count (150-400) K/uL MPV (7.40-12.00) fL Neut % (Auto) (48.0-80.0) % Lymph % (Auto) (16.0-40.0) % [place] % (Auto) (0.0-15.0) % Eos % (Auto) (0.0-7.0) % Baso % (Auto) (0.0-1.5) % Neut # (Auto) (1.4-5.7) K/uL Lymph # (Auto) (0.6-2.4) K/uL [place] # (Auto) (0.0-0.8) K/uL Eos # (Auto) (0.0-0.7) K/uL Baso # (Auto) (0.0-0.1) K/uL Nucleated RBC % /100WBC Nucleated RBCs # K/uL ABG pH 7.39 (7.35-7.45) ABG pCO2 73 H (35-45) mmHG ABG pO2 55 L (80-105) mmHG ABG HCO3 44 H (22-26) mEq/L ABG Total CO2 39.5 H (23-27) mmol/L ABG Base Excess 15.3 H (-2.0-3.0) Sodium (136-145) mmol/L Potassium (3.5-5.1) mmol/L Chloride (98-107) mmol/L Carbon Dioxide (21.0-32.0) mmol/L BUN (7.0-18.0) mg/dL Creatinine (0.6-1.0) mg/dL Est Cr Clr Drug Dosing mL/min Estimated GFR (MDRD) ml/min Glucose (74-106) mg/dL Calcium (8.5-10.1) mg/dL Total Bilirubin (0.2-1.0) mg/dL AST (15-37) IU/L ALT (14-63) IU/L Alkaline Phosphatase (46-116) U/L Total Protein (6.4-8.2) g/dL Albumin (3.4-5.0) g/dL Globulin (2.6-4.0) g/dL Albumin/Globulin Ratio (0.9-1.6) Vitamin B12 624 (193-986) pg/mL Folate 59.10 H (8.60-58.90) ng/mL Vancomycin Trough (5.0-10.0) ug/mL 04/22/21 04/22/21 04/22/21 Range/Units 06:05 06:05 10:42 WBC 8.27 (4.0-11.0) K/uL RBC 4.65 (4.30-5.90) M/uL Hgb 14.5 (12.0-16.0) g/dL Hct 47.3 H (36.0-46.0) % MCV 101.7 H (80.0-98.0) fL MCH 31.2 (27.0-32.0) pg MCHC 30.7 L (31.0-37.0) g/dL RDW Std Deviation 50.3 (28.0-62.0) fl RDW Coeff of Vera 14 (11.0-15.0) % Plt Count 189 (150-400) K/uL MPV 11.30 (7.40-12.00) fL Neut % (Auto) 88.4 H (48.0-80.0) % Lymph % (Auto) 5.7 L (16.0-40.0) % [place] % (Auto) 5.9 (0.0-15.0) % Eos % (Auto) 0.0 (0.0-7.0) % Baso % (Auto) 0.0 (0.0-1.5) % Neut # (Auto) 7.3 H (1.4-5.7) K/uL Lymph # (Auto) 0.5 L (0.6-2.4) K/uL [place] # (Auto) 0.5 (0.0-0.8) K/uL Eos # (Auto) 0.0 (0.0-0.7) K/uL Baso # (Auto) 0.0 (0.0-0.1) K/uL Nucleated RBC % 0.0 /100WBC Nucleated RBCs # 0 K/uL ABG pH (7.35-7.45) ABG pCO2 (35-45) mmHG ABG pO2 (80-105) mmHG ABG HCO3 (22-26) mEq/L ABG Total CO2 (23-27) mmol/L ABG Base Excess (-2.0-3.0) Sodium 139 (136-145) mmol/L Potassium 5.3 H (3.5-5.1) mmol/L Chloride 95 L (98-107) mmol/L Carbon Dioxide 48.2 H (21.0-32.0) mmol/L BUN 12 (7.0-18.0) mg/dL Creatinine 0.4 L (0.6-1.0) mg/dL Est Cr Clr Drug Dosing 152.26 mL/min Estimated GFR (MDRD) > 60.0 ml/min Glucose 138 H (74-106) mg/dL Calcium 8.6 (8.5-10.1) mg/dL Total Bilirubin 0.2 (0.2-1.0) mg/dL AST 10 L (15-37) IU/L ALT 21 (14-63) IU/L Alkaline Phosphatase 111 (46-116) U/L Total Protein 6.6 (6.4-8.2) g/dL Albumin 2.8 L (3.4-5.0) g/dL Globulin 3.8 (2.6-4.0) g/dL Albumin/Globulin Ratio 0.7 L (0.9-1.6) Vitamin B12 (193-986) pg/mL Folate (8.60-58.90) ng/mL Vancomycin Trough 0.6 L (5.0-10.0) ug/mL Result Diagrams: 04/22/21 06:05 04/22/21 06:05 [place] Results Last 24 hrs: Microbiology 04/20/21 22:55 Aerobic Blood Culture - Preliminary Blood - Venous - Lab Draw NO GROWTH AFTER 1 DAY Anaerobic Blood Culture - Preliminary NO GROWTH AFTER 1 DAY 04/20/21 22:45 Aerobic Blood Culture - Preliminary Blood - Venous NO GROWTH AFTER 1 DAY Anaerobic Blood Culture - Preliminary NO GROWTH AFTER 1 DAY Sepsis Event Note - Evaluation Sepsis Screening Result: No Definite Risk - Focused Exam Vital Signs: Vital Signs Temp Pulse Resp BP Pulse Ox 04/22/21 08:41 97.3 F 102 H 18 124/69 88 L 04/22/21 05:53 96.6 F L 83 18 121/88 91 L 04/22/21 00:00 97.8 F 93 20 124/68 93 L - Problem List & Annotations (1) HTN (hypertension) SNOMED Code(s): 91438413 Code(s): I10 - ESSENTIAL (PRIMARY) HYPERTENSION Status: Acute Current Visit: Yes (2) CHF (congestive heart failure) SNOMED Code(s): 48958878 Code(s): I50.9 - HEART FAILURE, UNSPECIFIED Status: Acute Current Visit: No (3) COPD (chronic obstructive pulmonary disease) SNOMED Code(s): 82249869 Code(s): J44.9 - CHRONIC OBSTRUCTIVE PULMONARY DISEASE, UNSPECIFIED Status: Acute Current Visit: No (4) COPD exacerbation SNOMED Code(s): 793718755 Code(s): J44.1 - CHRONIC OBSTRUCTIVE PULMONARY DISEASE W (ACUTE) EXACERBATION Status: Acute Current Visit: No (5) Community acquired pneumonia SNOMED Code(s): 560880436 Code(s): J18.9 - PNEUMONIA, UNSPECIFIED ORGANISM Status: Acute Current Visit: No Qualifiers: Laterality: right Lung location: lower lobe of lung Qualified Code(s): J18.9 - Pneumonia, unspecified organism - Problem List Review Problem List Initiated/Reviewed/Updated: Yes - My Orders Last 24 Hours: My Active Orders 04/22/21 11:49 Melatonin [Melatonin] 5 mg PO BEDTIME PRN 04/23/21 05:11 CBC WITH AUTO DIFF [HEME] AM CMP [COMPREHENSIVE METABOLIC PN,CMP] [CHEM] AM 04/23/21 09:00 Aspirin [Halfprin] 81 mg PO DAILY Cholecalciferol (Vitamin D3) [Vitamin D3] 25 mcg PO DAILY Furosemide [Lasix] 40 mg PO DAILY Multivitamin [Multi-Vitamin Daily] 1 tab PO DAILY lisinopriL [Prinivil] 10 mg PO DAILY 04/24/21 05:11 CBC WITH AUTO DIFF [HEME] AM CMP [COMPREHENSIVE METABOLIC PN,CMP] [CHEM] AM 04/25/21 05:11 CBC WITH AUTO DIFF [HEME] AM CMP [COMPREHENSIVE METABOLIC PN,CMP] [CHEM] AM 04/26/21 05:11 CBC WITH AUTO DIFF [HEME] AM CMP [COMPREHENSIVE METABOLIC PN,CMP] [CHEM] AM - Plan Plan:: 1. COPD exacerbation -Continue duo nebs and Combivent every 4 hours for shortness of breath -Continue Robitussin-DM 10 mL every 4 hours for cough -Continue Solu-Medrol 40 mg per IV route every 8 hours -Provide oxygen as needed 2. Right lower lobe pneumonia -Continue Levaquin 750 mg per IV route every 24 hours -We will continue to monitor the patient through daily CBC, CMP, and clinical status -Continue Zofran 4 mg per IV route every 4 hours 3. PMH -Continue patient's home medications <Mickey Palafox - Last Filed: 04/22/21 16:38> - General Info Subjective Update: I have seen and evaluated the patient and agree with the residents note unless specified in my note - Patient Data Vitals - Most Recent: Last Vital Signs Temp 36.5 C 04/22/21 11:55 Pulse 99 04/22/21 11:55 Resp 18 04/22/21 11:55 BP 111/55 L 04/22/21 13:01 Pulse Ox 88 L 04/22/21 11:55 I&O - Last 24 Hours: Intake & Output 04/22/21 04/22/21 04/22/21 06:59 14:59 22:59 Intake Total 1100 Output Total 400 Balance 700 Lab Results Last 24 Hours: Laboratory Results - last 24 hr 04/21/21 04/22/21 04/22/21 Range/Units 19:30 06:05 06:05 WBC 8.27 (4.0-11.0) K/uL RBC 4.65 (4.30-5.90) M/uL Hgb 14.5 (12.0-16.0) g/dL Hct 47.3 H (36.0-46.0) % MCV 101.7 H (80.0-98.0) fL MCH 31.2 (27.0-32.0) pg MCHC 30.7 L (31.0-37.0) g/dL RDW Std Deviation 50.3 (28.0-62.0) fl RDW Coeff of Vera 14 (11.0-15.0) % Plt Count 189 (150-400) K/uL MPV 11.30 (7.40-12.00) fL Neut % (Auto) 88.4 H (48.0-80.0) % Lymph % (Auto) 5.7 L (16.0-40.0) % [place] % (Auto) 5.9 (0.0-15.0) % Eos % (Auto) 0.0 (0.0-7.0) % Baso % (Auto) 0.0 (0.0-1.5) % Neut # (Auto) 7.3 H (1.4-5.7) K/uL Lymph # (Auto) 0.5 L (0.6-2.4) K/uL [place] # (Auto) 0.5 (0.0-0.8) K/uL Eos # (Auto) 0.0 (0.0-0.7) K/uL Baso # (Auto) 0.0 (0.0-0.1) K/uL Nucleated RBC % 0.0 /100WBC Nucleated RBCs # 0 K/uL ABG pH 7.39 (7.35-7.45) ABG pCO2 73 H (35-45) mmHG ABG pO2 55 L (80-105) mmHG ABG HCO3 44 H (22-26) mEq/L ABG Total CO2 39.5 H (23-27) mmol/L ABG Base Excess 15.3 H (-2.0-3.0) Sodium 139 (136-145) mmol/L Potassium 5.3 H (3.5-5.1) mmol/L Chloride 95 L (98-107) mmol/L Carbon Dioxide 48.2 H (21.0-32.0) mmol/L BUN 12 (7.0-18.0) mg/dL Creatinine 0.4 L (0.6-1.0) mg/dL Est Cr Clr Drug Dosing 152.26 mL/min Estimated GFR (MDRD) > 60.0 ml/min Glucose 138 H (74-106) mg/dL Calcium 8.6 (8.5-10.1) mg/dL Total Bilirubin 0.2 (0.2-1.0) mg/dL AST 10 L (15-37) IU/L ALT 21 (14-63) IU/L Alkaline Phosphatase 111 (46-116) U/L Troponin I (0.000-0.056) ng/mL Total Protein 6.6 (6.4-8.2) g/dL Albumin 2.8 L (3.4-5.0) g/dL Globulin 3.8 (2.6-4.0) g/dL Albumin/Globulin Ratio 0.7 L (0.9-1.6) Vancomycin Trough (5.0-10.0) ug/mL 04/22/21 04/22/21 Range/Units 10:42 10:42 WBC (4.0-11.0) K/uL RBC (4.30-5.90) M/uL Hgb (12.0-16.0) g/dL Hct (36.0-46.0) % MCV (80.0-98.0) fL MCH (27.0-32.0) pg MCHC (31.0-37.0) g/dL RDW Std Deviation (28.0-62.0) fl RDW Coeff of Vera (11.0-15.0) % Plt Count (150-400) K/uL MPV (7.40-12.00) fL Neut % (Auto) (48.0-80.0) % Lymph % (Auto) (16.0-40.0) % [place] % (Auto) (0.0-15.0) % Eos % (Auto) (0.0-7.0) % Baso % (Auto) (0.0-1.5) % Neut # (Auto) (1.4-5.7) K/uL Lymph # (Auto) (0.6-2.4) K/uL [place] # (Auto) (0.0-0.8) K/uL Eos # (Auto) (0.0-0.7) K/uL Baso # (Auto) (0.0-0.1) K/uL Nucleated RBC % /100WBC Nucleated RBCs # K/uL ABG pH (7.35-7.45) ABG pCO2 (35-45) mmHG ABG pO2 (80-105) mmHG ABG HCO3 (22-26) mEq/L ABG Total CO2 (23-27) mmol/L ABG Base Excess (-2.0-3.0) Sodium (136-145) mmol/L Potassium (3.5-5.1) mmol/L Chloride (98-107) mmol/L Carbon Dioxide (21.0-32.0) mmol/L BUN (7.0-18.0) mg/dL Creatinine (0.6-1.0) mg/dL Est Cr Clr Drug Dosing mL/min Estimated GFR (MDRD) ml/min Glucose (74-106) mg/dL Calcium (8.5-10.1) mg/dL Total Bilirubin (0.2-1.0) mg/dL AST (15-37) IU/L ALT (14-63) IU/L Alkaline Phosphatase (46-116) U/L Troponin I < 0.050 (0.000-0.056) ng/mL Total Protein (6.4-8.2) g/dL Albumin (3.4-5.0) g/dL Globulin (2.6-4.0) g/dL Albumin/Globulin Ratio (0.9-1.6) Vancomycin Trough 0.6 L (5.0-10.0) ug/mL [place] Results Last 24 Hours: Microbiology 04/20/21 22:55 Aerobic Blood Culture - Preliminary Blood - Venous - Lab Draw NO GROWTH AFTER 1 DAY Anaerobic Blood Culture - Preliminary NO GROWTH AFTER 1 DAY 04/20/21 22:45 Aerobic Blood Culture - Preliminary Blood - Venous NO GROWTH AFTER 1 DAY Anaerobic Blood Culture - Preliminary NO GROWTH AFTER 1 DAY Med Orders - Current: Current Medications Acetaminophen (Acetaminophen 325 Mg Tab) 650 mg PO Q6H PRN PRN Reason: Pain/Fever Last Admin: 04/22/21 06:00 Dose: 650 mg Documented by: Albuterol/Ipratropium (Albuterol/Ipratropium 3.0-0.5 Mg/3 Ml Neb Soln) 3 ml NEB Q4HRRT [facility] Last Admin: 04/22/21 13:42 Dose: 3 ml Documented by: Albuterol/Ipratropium (Albuterol/Ipratropium 4 Gm Inhalation [place]) 0 gm INH Q4H PRN PRN Reason: Dyspnea Aspirin (Aspirin 81 Mg Tab.Ec) 81 mg PO DAILY [facility] Last Admin: 04/22/21 12:57 Dose: 81 mg Documented by: Cholecalciferol (Cholecalciferol (Vitamin D3) 25 Mcg Tab) 25 mcg PO DAILY [facility] Last Admin: 04/22/21 12:57 Dose: 25 mcg Documented by: Enoxaparin Sodium (Enoxaparin 40 Mg/0.4 Ml Syringe) 40 mg SUBCUT DAILY [facility] Last Admin: 04/22/21 09:01 Dose: Not Given Documented by: Furosemide (Furosemide 40 Mg Tab) 40 mg PO DAILY [facility] Last Admin: 04/22/21 12:57 Dose: 40 mg Documented by: Guaifenesin/Dextromethorphan (Guaifenesin/Dextromethorphan 100-10 Mg/5 Ml Soln 10 Ml Cup) 10 ml PO Q4H PRN PRN Reason: Cough Lactated Ringer's (Ringers, Lactated) 1,000 mls @ 999 mls/hr IV ASDIRECTED [facility] Last Admin: 04/20/21 22:39 Dose: 999 mls/hr Documented by: Levofloxacin/Dextrose 750 mg/ (Premix) 150 mls @ 100 mls/hr IV DAILY [facility] Last Admin: 04/22/21 09:04 Dose: 100 mls/hr Documented by: Pantoprazole Sodium 40 mg/ (Sodium Chloride) 10 mls @ 300 mls/hr IV DAILY [facility] Last Admin: 04/22/21 09:02 Dose: 300 mls/hr Documented by: Lisinopril (Lisinopril 10 Mg Tab) 10 mg PO DAILY [facility] Last Admin: 04/22/21 13:01 Dose: Not Given Documented by: Melatonin (Melatonin 3 Mg Tab) 6 mg PO BEDTIME PRN PRN Reason: Sleep Methylprednisolone Sodium Succinate (Methylprednisolone Sodium Succinate 125 Mg/2 Ml Sdv) 60 mg IVPUSH Q8H [facility] Last Admin: 04/22/21 16:20 Dose: Not Given Documented by: Multivitamins/Minerals/Vitamin C (Multivitamin Tab) 1 tab PO DAILY [facility] Ondansetron HCl (Ondansetron 4 Mg/2 Ml Sdv) 4 mg IVPUSH Q4H PRN PRN Reason: Nausea/Vomiting Fluticasone/Umeclidin/Vilanter [ Trelegy Ellipta 100- 62.5- 1 each INH DAILY [facility] Discontinued Medications Albuterol/Ipratropium (Albuterol/Ipratropium 3.0-0.5 Mg/3 Ml Neb Soln) 3 ml NEB ONETIME ONE Stop: 04/20/21 22:10 Last Admin: 04/20/21 22:21 Dose: 3 ml Documented by: Albuterol/Ipratropium (Albuterol/Ipratropium 3.0-0.5 Mg/3 Ml Neb Soln) 3 ml NEB ONETIME ONE Stop: 04/20/21 22:11 Last Admin: 04/20/21 22:21 Dose: 3 ml Documented by: Albuterol/Ipratropium (Albuterol/Ipratropium 3.0-0.5 Mg/3 Ml Neb Soln) 3 ml NEB ONETIME ONE Stop: 04/20/21 22:11 Last Admin: 04/20/21 22:21 Dose: 3 ml Documented by: Cefepime HCl 2 gm/ Premix 50 mls @ 100 mls/hr IV ONETIME ONE Stop: 04/20/21 22:56 Last Admin: 04/20/21 23:02 Dose: 100 mls/hr Documented by: Vancomycin HCl 2 gm/ Premix 400 mls @ 200 mls/hr IV NOW ONE Stop: 04/21/21 00:59 Last Admin: 04/20/21 23:31 Dose: 200 mls/hr Documented by: Vancomycin HCl 2 gm/ Premix 400 mls @ 200 mls/hr IV Q12H [facility] Pantoprazole Sodium 40 mg/ (Sodium Chloride) 10 mls @ 300 mls/hr IV DAILY [facility] Last Admin: 04/21/21 22:35 Dose: Not Given Documented by: Methylprednisolone Sodium Succinate (Methylprednisolone Sodium Succinate 40 Mg/1 Ml Sdv) 40 mg IVPUSH Q8H [facility] Last Admin: 04/22/21 13:01 Dose: 40 mg Documented by: Prednisone (Prednisone 20 Mg Tab) 60 mg PO ONETIME ONE Stop: 04/20/21 22:11 Last Admin: 04/20/21 22:20 Dose: 60 mg Documented by: Vancomycin HCl (Pharmacy To Dose - Vancomycin) 1 dose .XX ONETIME ONE Stop: 04/20/21 22:28 - Patient Data Lab Results Last 24 hrs: Laboratory Results - last 24 hr 04/21/21 04/22/21 04/22/21 Range/Units 19:30 06:05 06:05 WBC 8.27 (4.0-11.0) K/uL RBC 4.65 (4.30-5.90) M/uL Hgb 14.5 (12.0-16.0) g/dL Hct 47.3 H (36.0-46.0) % MCV 101.7 H (80.0-98.0) fL MCH 31.2 (27.0-32.0) pg MCHC 30.7 L (31.0-37.0) g/dL RDW Std Deviation 50.3 (28.0-62.0) fl RDW Coeff of Vera 14 (11.0-15.0) % Plt Count 189 (150-400) K/uL MPV 11.30 (7.40-12.00) fL Neut % (Auto) 88.4 H (48.0-80.0) % Lymph % (Auto) 5.7 L (16.0-40.0) % [place] % (Auto) 5.9 (0.0-15.0) % Eos % (Auto) 0.0 (0.0-7.0) % Baso % (Auto) 0.0 (0.0-1.5) % Neut # (Auto) 7.3 H (1.4-5.7) K/uL Lymph # (Auto) 0.5 L (0.6-2.4) K/uL [place] # (Auto) 0.5 (0.0-0.8) K/uL Eos # (Auto) 0.0 (0.0-0.7) K/uL Baso # (Auto) 0.0 (0.0-0.1) K/uL Nucleated RBC % 0.0 /100WBC Nucleated RBCs # 0 K/uL ABG pH 7.39 (7.35-7.45) ABG pCO2 73 H (35-45) mmHG ABG pO2 55 L (80-105) mmHG ABG HCO3 44 H (22-26) mEq/L ABG Total CO2 39.5 H (23-27) mmol/L ABG Base Excess 15.3 H (-2.0-3.0) Sodium 139 (136-145) mmol/L Potassium 5.3 H (3.5-5.1) mmol/L Chloride 95 L (98-107) mmol/L Carbon Dioxide 48.2 H (21.0-32.0) mmol/L BUN 12 (7.0-18.0) mg/dL Creatinine 0.4 L (0.6-1.0) mg/dL Est Cr Clr Drug Dosing 152.26 mL/min Estimated GFR (MDRD) > 60.0 ml/min Glucose 138 H (74-106) mg/dL Calcium 8.6 (8.5-10.1) mg/dL Total Bilirubin 0.2 (0.2-1.0) mg/dL AST 10 L (15-37) IU/L ALT 21 (14-63) IU/L Alkaline Phosphatase 111 (46-116) U/L Troponin I (0.000-0.056) ng/mL Total Protein 6.6 (6.4-8.2) g/dL Albumin 2.8 L (3.4-5.0) g/dL Globulin 3.8 (2.6-4.0) g/dL Albumin/Globulin Ratio 0.7 L (0.9-1.6) Vancomycin Trough (5.0-10.0) ug/mL 04/22/21 04/22/21 Range/Units 10:42 10:42 WBC (4.0-11.0) K/uL RBC (4.30-5.90) M/uL Hgb (12.0-16.0) g/dL Hct (36.0-46.0) % MCV (80.0-98.0) fL MCH (27.0-32.0) pg MCHC (31.0-37.0) g/dL RDW Std Deviation (28.0-62.0) fl RDW Coeff of Vera (11.0-15.0) % Plt Count (150-400) K/uL MPV (7.40-12.00) fL Neut % (Auto) (48.0-80.0) % Lymph % (Auto) (16.0-40.0) % [place] % (Auto) (0.0-15.0) % Eos % (Auto) (0.0-7.0) % Baso % (Auto) (0.0-1.5) % Neut # (Auto) (1.4-5.7) K/uL Lymph # (Auto) (0.6-2.4) K/uL [place] # (Auto) (0.0-0.8) K/uL Eos # (Auto) (0.0-0.7) K/uL Baso # (Auto) (0.0-0.1) K/uL Nucleated RBC % /100WBC Nucleated RBCs # K/uL ABG pH (7.35-7.45) ABG pCO2 (35-45) mmHG ABG pO2 (80-105) mmHG ABG HCO3 (22-26) mEq/L ABG Total CO2 (23-27) mmol/L ABG Base Excess (-2.0-3.0) Sodium (136-145) mmol/L Potassium (3.5-5.1) mmol/L Chloride (98-107) mmol/L Carbon Dioxide (21.0-32.0) mmol/L BUN (7.0-18.0) mg/dL Creatinine (0.6-1.0) mg/dL Est Cr Clr Drug Dosing mL/min Estimated GFR (MDRD) ml/min Glucose (74-106) mg/dL Calcium (8.5-10.1) mg/dL Total Bilirubin (0.2-1.0) mg/dL AST (15-37) IU/L ALT (14-63) IU/L Alkaline Phosphatase (46-116) U/L Troponin I < 0.050 (0.000-0.056) ng/mL Total Protein (6.4-8.2) g/dL Albumin (3.4-5.0) g/dL Globulin (2.6-4.0) g/dL Albumin/Globulin Ratio (0.9-1.6) Vancomycin Trough 0.6 L (5.0-10.0) ug/mL Result Diagrams: 04/22/21 06:05 04/22/21 06:05 Twan Results Last 24 hrs: Microbiology 04/20/21 22:55 Aerobic Blood Culture - Preliminary Blood - Venous - Lab Draw NO GROWTH AFTER 1 DAY Anaerobic Blood Culture - Preliminary NO GROWTH AFTER 1 DAY 04/20/21 22:45 Aerobic Blood Culture - Preliminary Blood - Venous NO GROWTH AFTER 1 DAY Anaerobic Blood Culture - Preliminary NO GROWTH AFTER 1 DAY Sepsis Event Note - Focused Exam Vital Signs: Vital Signs Temp Pulse Resp BP BP Pulse Ox 04/22/21 13:01 111/55 L 04/22/21 11:55 36.5 C 99 18 111/55 L 88 L 04/22/21 08:41 36.3 C 102 H 18 124/69 88 L 04/22/21 05:53 35.9 C L 83 18 121/88 91 L - My Orders Last 24 Hours: My Active Orders 04/22/21 15:52 methylPREDNISolone Sod Succ [Solu-MEDROL] 60 mg IVPUSH Q8H 04/23/21 09:00 Patient's Own Medication [Ptom] 1 each INH DAILY
[2021-04-22] MEDS ORDERED: Melatonin 3 MG Tab PO PRN (12:11)
[2021-04-22] MEDS: Cholecalciferol (Vitamin D3) 25 MCG Tab PO SCH (12:57)
[2021-04-22] MEDS: Aspirin 81 MG Tab.EC PO SCH (12:57)
[2021-04-22] MEDS: Furosemide 40 MG Tab PO SCH (12:57)
[2021-04-22] MEDS: Lisinopril 10 MG Tab PO SCH (13:01)
[2021-04-22] MEDS ORDERED: methylPREDNISolone Sodium Succinate 125 MG/2 ML SDV IVPUSH SCH (15:00)
[2021-04-22] MEDS: methylPREDNISolone Sodium Succinate 125 MG/2 ML SDV IVPUSH SCH ×2 (16:20→23:32)
[2021-04-23] MEDS: Albuterol/Ipratropium 3.0-0.5 MG/3 ML Neb Soln NEB SCH ×6 (02:35→22:50)
[2021-04-23 07:26] LABS: BLOOD UREA NITROGEN,BUN 19 mg/dL (7.0-18.0); CARBON DIOXIDE,CO2 43.6 mmol/L (21.0-32.0); CHLORIDE,CL 95 mmol/L (98-107); GLUCOSE RANDOM 145 mg/dL (74-106); POTASSIUM,K 4.9 mmol/L (3.5-5.1); SODIUM,NA 140 mmol/L (136-145)
[2021-04-23] MEDS: Levofloxacin/Dextrose 5%-Water 750 MG in Premix Bag 1 BAG IV SCH (08:33)
[2021-04-23] MEDS: methylPREDNISolone Sodium Succinate 125 MG/2 ML SDV IVPUSH SCH ×3 (08:33→22:53)
[2021-04-23] MEDS: Pantoprazole 40 MG in Sodium Chloride 0.9% 10 ML IV SCH (08:35)
[2021-04-23] MEDS: Cholecalciferol (Vitamin D3) 25 MCG Tab PO SCH (08:36)
[2021-04-23] MEDS: Multivitamin Tab PO SCH (08:37)
[2021-04-23] MEDS: Furosemide 40 MG Tab PO SCH (08:37)
[2021-04-23] MEDS: Lisinopril 10 MG Tab PO SCH (08:37)
[2021-04-23] MEDS: Aspirin 81 MG Tab.EC PO SCH (08:37)
[2021-04-23] MEDS: Enoxaparin 40 MG/0.4 ML Syringe SUBCUT SCH (08:44)
[2021-04-23] MEDS: Fluticasone/Umeclidin/Vilanter [Trelegy Ellipta 100-62.5- INH SCH (09:00)
--- NOTE | 2021-04-23 12:14 | PCM.PN ---
<Kasey Lopez - Last Filed: 04/23/21 12:15> - General Info Date of Service: 04/23/21 Subjective Update: The patient is a 55-year-old female, on day 3 of service, with a significant past medical history of chronic obstructive pulmonary disease with 4 L of oxygen at home, congestive heart failure, and hypertension, who was admitted to the medical floor due to a COPD exacerbation. Upon interview with the patient today she feels her shortness of breath has significantly decreased and her cough has resolved. In regards to her oxygen supplementation she is saturating at 88 % on 4 L. She has been counseled on smoking cessation. She is eating and drinking without any issues. She denies chest pain, palpitations, abdominal pain, headache, and has no issues with urination and/or defecation. She has no other health concerns at this time. - Review of Systems General: Denies: Fever, Weakness HEENT: Denies: Headaches, Sore Throat Pulmonary: Reports: Shortness of Breath. Denies: Cough Cardiovascular: Denies: Chest Pain, Palpitations Gastrointestinal: Denies: Abdominal Pain Genitourinary: Denies: Dysuria - Patient Data Vitals - Most Recent: Last Vital Signs Temp 97.3 F 04/23/21 09:00 Pulse 94 04/23/21 09:00 Resp 20 04/23/21 09:00 BP 116/71 04/23/21 09:00 Pulse Ox 88 L 04/23/21 09:00 Weight - Most Recent: 102.965 kg I&O - Last 24 Hours: Intake & Output 04/22/21 04/23/21 04/23/21 22:59 06:59 14:59 Intake Total 1359 100 Output Total 1800 Balance -441 100 Lab Results Last 24 Hours: Laboratory Results - last 24 hr 04/22/21 04/23/21 04/23/21 Range/Units 10:42 05:58 05:58 WBC 7.70 (4.0-11.0) K/uL RBC 4.92 (4.30-5.90) M/uL Hgb 15.4 (12.0-16.0) g/dL Hct 49.4 H (36.0-46.0) % MCV 100.4 H (80.0-98.0) fL MCH 31.3 (27.0-32.0) pg MCHC 31.2 (31.0-37.0) g/dL RDW Std Deviation 51.1 (28.0-62.0) fl RDW Coeff of Vera 14 (11.0-15.0) % Plt Count 197 (150-400) K/uL MPV 11.40 (7.40-12.00) fL Neut % (Auto) 93.6 H (48.0-80.0) % Lymph % (Auto) 4.3 L (16.0-40.0) % [place] % (Auto) 2.1 (0.0-15.0) % Eos % (Auto) 0.0 (0.0-7.0) % Baso % (Auto) 0.0 (0.0-1.5) % Neut # (Auto) 7.2 H (1.4-5.7) K/uL Lymph # (Auto) 0.3 L (0.6-2.4) K/uL [place] # (Auto) 0.2 (0.0-0.8) K/uL Eos # (Auto) 0.0 (0.0-0.7) K/uL Baso # (Auto) 0.0 (0.0-0.1) K/uL Nucleated RBC % 0.0 /100WBC Nucleated RBCs # 0 K/uL Sodium 140 (136-145) mmol/L Potassium 4.9 (3.5-5.1) mmol/L Chloride 95 L (98-107) mmol/L Carbon Dioxide 43.6 H (21.0-32.0) mmol/L BUN 19 H (7.0-18.0) mg/dL Creatinine 0.5 L (0.6-1.0) mg/dL Est Cr Clr Drug Dosing 121.81 mL/min Estimated GFR (MDRD) > 60.0 ml/min Glucose 145 H (74-106) mg/dL Calcium 8.8 (8.5-10.1) mg/dL Total Bilirubin 0.3 (0.2-1.0) mg/dL AST 13 L (15-37) IU/L ALT 25 (14-63) IU/L Alkaline Phosphatase 112 (46-116) U/L Troponin I < 0.050 (0.000-0.056) ng/mL Total Protein 6.8 (6.4-8.2) g/dL Albumin 3.1 L (3.4-5.0) g/dL Globulin 3.7 (2.6-4.0) g/dL Albumin/Globulin Ratio 0.8 L (0.9-1.6) Twan Results Last 24 Hours: Microbiology 04/20/21 22:55 Aerobic Blood Culture - Preliminary Blood - Venous - Lab Draw NO GROWTH AFTER 2 DAYS Anaerobic Blood Culture - Preliminary NO GROWTH AFTER 2 DAYS 04/20/21 22:45 Aerobic Blood Culture - Preliminary Blood - Venous NO GROWTH AFTER 2 DAYS Anaerobic Blood Culture - Preliminary NO GROWTH AFTER 2 DAYS Med Orders - Current: Current Medications Acetaminophen (Acetaminophen 325 Mg Tab) 650 mg PO Q6H PRN PRN Reason: Pain/Fever Last Admin: 04/22/21 06:00 Dose: 650 mg Documented by: Albuterol/Ipratropium (Albuterol/Ipratropium 3.0-0.5 Mg/3 Ml Neb Soln) 3 ml NEB Q4HRRT [facility] Last Admin: 04/23/21 06:02 Dose: 3 ml Documented by: Albuterol/Ipratropium (Albuterol/Ipratropium 4 Gm Inhalation [place]) 0 gm INH Q4H PRN PRN Reason: Dyspnea Aspirin (Aspirin 81 Mg Tab.Ec) 81 mg PO DAILY [facility] Last Admin: 04/23/21 08:37 Dose: 81 mg Documented by: Cholecalciferol (Cholecalciferol (Vitamin D3) 25 Mcg Tab) 25 mcg PO DAILY [facility] Last Admin: 04/23/21 08:36 Dose: 25 mcg Documented by: Enoxaparin Sodium (Enoxaparin 40 Mg/0.4 Ml Syringe) 40 mg SUBCUT DAILY [facility] Last Admin: 04/23/21 08:44 Dose: Not Given Documented by: Furosemide (Furosemide 40 Mg Tab) 40 mg PO DAILY [facility] Last Admin: 04/23/21 08:37 Dose: 40 mg Documented by: Guaifenesin/Dextromethorphan (Guaifenesin/Dextromethorphan 100-10 Mg/5 Ml Soln 10 Ml Cup) 10 ml PO Q4H PRN PRN Reason: Cough Levofloxacin/Dextrose 750 mg/ (Premix) 150 mls @ 100 mls/hr IV DAILY [facility] Last Admin: 04/23/21 08:33 Dose: 100 mls/hr Documented by: Pantoprazole Sodium 40 mg/ (Sodium Chloride) 10 mls @ 300 mls/hr IV DAILY [facility] Last Admin: 04/23/21 08:35 Dose: 300 mls/hr Documented by: Lisinopril (Lisinopril 10 Mg Tab) 10 mg PO DAILY [facility] Last Admin: 04/23/21 08:37 Dose: 10 mg Documented by: Melatonin (Melatonin 3 Mg Tab) 6 mg PO BEDTIME PRN PRN Reason: Sleep Methylprednisolone Sodium Succinate (Methylprednisolone Sodium Succinate 125 Mg/2 Ml Sdv) 60 mg IVPUSH Q8H [facility] Last Admin: 04/23/21 08:33 Dose: 60 mg Documented by: Multivitamins/Minerals/Vitamin C (Multivitamin Tab) 1 tab PO DAILY [facility] Last Admin: 04/23/21 08:37 Dose: 1 tab Documented by: Ondansetron HCl (Ondansetron 4 Mg/2 Ml Sdv) 4 mg IVPUSH Q4H PRN PRN Reason: Nausea/Vomiting Fluticasone/Umeclidin/Vilanter [ Trelegy Ellipta 100- 62.5- 1 each INH DAILY KOLE Discontinued Medications Albuterol/Ipratropium (Albuterol/Ipratropium 3.0-0.5 Mg/3 Ml Neb Soln) 3 ml NEB ONETIME ONE Stop: 04/20/21 22:10 Last Admin: 04/20/21 22:21 Dose: 3 ml Documented by: Albuterol/Ipratropium (Albuterol/Ipratropium 3.0-0.5 Mg/3 Ml Neb Soln) 3 ml NEB ONETIME ONE Stop: 04/20/21 22:11 Last Admin: 04/20/21 22:21 Dose: 3 ml Documented by: Albuterol/Ipratropium (Albuterol/Ipratropium 3.0-0.5 Mg/3 Ml Neb Soln) 3 ml NEB ONETIME ONE Stop: 04/20/21 22:11 Last Admin: 04/20/21 22:21 Dose: 3 ml Documented by: Cefepime HCl 2 gm/ Premix 50 mls @ 100 mls/hr IV ONETIME ONE Stop: 04/20/21 22:56 Last Admin: 04/20/21 23:02 Dose: 100 mls/hr Documented by: Lactated Ringer's (Ringers, Lactated) 1,000 mls @ 999 mls/hr IV ASDIRECTED [facility] Last Admin: 04/20/21 22:39 Dose: 999 mls/hr Documented by: Vancomycin HCl 2 gm/ Premix 400 mls @ 200 mls/hr IV NOW ONE Stop: 04/21/21 00:59 Last Admin: 04/20/21 23:31 Dose: 200 mls/hr Documented by: Vancomycin HCl 2 gm/ Premix 400 mls @ 200 mls/hr IV Q12H [facility] Pantoprazole Sodium 40 mg/ (Sodium Chloride) 10 mls @ 300 mls/hr IV DAILY [facility] Last Admin: 04/21/21 22:35 Dose: Not Given Documented by: Methylprednisolone Sodium Succinate (Methylprednisolone Sodium Succinate 40 Mg/1 Ml Sdv) 40 mg IVPUSH Q8H [facility] Last Admin: 04/22/21 13:01 Dose: 40 mg Documented by: Prednisone (Prednisone 20 Mg Tab) 60 mg PO ONETIME ONE Stop: 04/20/21 22:11 Last Admin: 04/20/21 22:20 Dose: 60 mg Documented by: Vancomycin HCl (Pharmacy To Dose - Vancomycin) 1 dose .XX ONETIME ONE Stop: 04/20/21 22:28 - Exam General: Alert, Oriented, Cooperative HEENT: Mucous Membr. Moist/[place] Neck: No: Lymphadenopathy Lungs: Clear to Auscultation, Normal Respiratory Effort Cardiovascular: Regular Rate, Regular Rhythm, No Murmurs GI/Abdominal Exam: Normal Bowel Sounds, Soft, Non-Tender - Patient Data Lab Results Last 24 hrs: Laboratory Results - last 24 hr 04/22/21 04/23/21 04/23/21 Range/Units 10:42 05:58 05:58 WBC 7.70 (4.0-11.0) K/uL RBC 4.92 (4.30-5.90) M/uL Hgb 15.4 (12.0-16.0) g/dL Hct 49.4 H (36.0-46.0) % MCV 100.4 H (80.0-98.0) fL MCH 31.3 (27.0-32.0) pg MCHC 31.2 (31.0-37.0) g/dL RDW Std Deviation 51.1 (28.0-62.0) fl RDW Coeff of Vera 14 (11.0-15.0) % Plt Count 197 (150-400) K/uL MPV 11.40 (7.40-12.00) fL Neut % (Auto) 93.6 H (48.0-80.0) % Lymph % (Auto) 4.3 L (16.0-40.0) % [place] % (Auto) 2.1 (0.0-15.0) % Eos % (Auto) 0.0 (0.0-7.0) % Baso % (Auto) 0.0 (0.0-1.5) % Neut # (Auto) 7.2 H (1.4-5.7) K/uL Lymph # (Auto) 0.3 L (0.6-2.4) K/uL [place] # (Auto) 0.2 (0.0-0.8) K/uL Eos # (Auto) 0.0 (0.0-0.7) K/uL Baso # (Auto) 0.0 (0.0-0.1) K/uL Nucleated RBC % 0.0 /100WBC Nucleated RBCs # 0 K/uL Sodium 140 (136-145) mmol/L Potassium 4.9 (3.5-5.1) mmol/L Chloride 95 L (98-107) mmol/L Carbon Dioxide 43.6 H (21.0-32.0) mmol/L BUN 19 H (7.0-18.0) mg/dL Creatinine 0.5 L (0.6-1.0) mg/dL Est Cr Clr Drug Dosing 121.81 mL/min Estimated GFR (MDRD) > 60.0 ml/min Glucose 145 H (74-106) mg/dL Calcium 8.8 (8.5-10.1) mg/dL Total Bilirubin 0.3 (0.2-1.0) mg/dL AST 13 L (15-37) IU/L ALT 25 (14-63) IU/L Alkaline Phosphatase 112 (46-116) U/L Troponin I < 0.050 (0.000-0.056) ng/mL Total Protein 6.8 (6.4-8.2) g/dL Albumin 3.1 L (3.4-5.0) g/dL Globulin 3.7 (2.6-4.0) g/dL Albumin/Globulin Ratio 0.8 L (0.9-1.6) Result Diagrams: 04/23/21 05:58 04/23/21 05:58 Twan Results Last 24 hrs: Microbiology 04/20/21 22:55 Aerobic Blood Culture - Preliminary Blood - Venous - Lab Draw NO GROWTH AFTER 2 DAYS Anaerobic Blood Culture - Preliminary NO GROWTH AFTER 2 DAYS 04/20/21 22:45 Aerobic Blood Culture - Preliminary Blood - Venous NO GROWTH AFTER 2 DAYS Anaerobic Blood Culture - Preliminary NO GROWTH AFTER 2 DAYS Sepsis Event Note - Evaluation Sepsis Screening Result: No Definite Risk - Focused Exam Vital Signs: Vital Signs Temp Pulse Resp BP BP Pulse Ox 04/23/21 09:00 97.3 F 94 20 116/71 88 L 04/23/21 08:37 153/82 H 04/23/21 05:10 91 L 04/23/21 05:00 96.6 F L 86 16 141/79 H 88 L - Problem List & Annotations (1) HTN (hypertension) SNOMED Code(s): 26543829 Code(s): I10 - ESSENTIAL (PRIMARY) HYPERTENSION Status: Acute Current Visit: Yes (2) CHF (congestive heart failure) SNOMED Code(s): 13309157 Code(s): I50.9 - HEART FAILURE, UNSPECIFIED Status: Acute Current Visit: No (3) COPD (chronic obstructive pulmonary disease) SNOMED Code(s): 28147157 Code(s): J44.9 - CHRONIC OBSTRUCTIVE PULMONARY DISEASE, UNSPECIFIED Status: Acute Current Visit: No (4) COPD exacerbation SNOMED Code(s): 469455390 Code(s): J44.1 - CHRONIC OBSTRUCTIVE PULMONARY DISEASE W (ACUTE) EXACERBATION Status: Acute Current Visit: No (5) Community acquired pneumonia SNOMED Code(s): 205743969 Code(s): J18.9 - PNEUMONIA, UNSPECIFIED ORGANISM Status: Acute Current Visit: No Qualifiers: Laterality: right Lung location: lower lobe of lung Qualified Code(s): J18.9 - Pneumonia, unspecified organism - Problem List Review Problem List Initiated/Reviewed/Updated: Yes - My Orders Last 24 Hours: My Active Orders 04/22/21 12:00 Aspirin [Halfprin] 81 mg PO DAILY Furosemide [Lasix] 40 mg PO DAILY lisinopriL [Prinivil] 10 mg PO DAILY 04/22/21 12:11 Melatonin 6 mg PO BEDTIME PRN 04/22/21 12:15 Cholecalciferol (Vitamin D3) [Vitamin D3] 25 mcg PO DAILY 04/23/21 09:00 Multivitamins [Tab-A-Cheo] 1 tab PO DAILY 04/24/21 05:11 CBC WITH AUTO DIFF [HEME] AM CMP [COMPREHENSIVE METABOLIC PN,CMP] [CHEM] AM 04/25/21 05:11 CBC WITH AUTO DIFF [HEME] AM CMP [COMPREHENSIVE METABOLIC PN,CMP] [CHEM] AM 04/26/21 05:11 CBC WITH AUTO DIFF [HEME] AM CMP [COMPREHENSIVE METABOLIC PN,CMP] [CHEM] AM - Assessment Assessment:: 1. COPD exacerbation -Continue duo nebs/Combivent every 4 hours for shortness of breath -Continue Robitussin-DM 10 mL every 4 hours for cough -Continue Solu-Medrol 60 mg per IV route every 8 hours -Provide oxygen as needed 2. Right lower lobe pneumonia -Continue Levaquin 750 mg per IV route every 24 hours -We will continue to monitor the patient through daily CBC/CMP 3. PMH -Continue patient's home medications if appropriate <Mickey Palafox - Last Filed: 04/23/21 20:56> - General Info Subjective Update: I have seen and evaluated the patient and agree with the residents note unless specified in my note - Patient Data Vitals - Most Recent: Last Vital Signs Temp 36.3 C 04/23/21 19:00 Pulse 99 04/23/21 19:00 Resp 20 04/23/21 19:00 BP 121/72 04/23/21 19:00 Pulse Ox 88 L 04/23/21 19:00 I&O - Last 24 Hours: Intake & Output 04/23/21 04/23/21 04/23/21 06:59 14:59 22:59 Intake Total 100 1360 Output Total 1700 Balance 100 -340 Lab Results Last 24 Hours: Laboratory Results - last 24 hr 04/23/21 04/23/21 Range/Units 05:58 05:58 WBC 7.70 (4.0-11.0) K/uL RBC 4.92 (4.30-5.90) M/uL Hgb 15.4 (12.0-16.0) g/dL Hct 49.4 H (36.0-46.0) % MCV 100.4 H (80.0-98.0) fL MCH 31.3 (27.0-32.0) pg MCHC 31.2 (31.0-37.0) g/dL RDW Std Deviation 51.1 (28.0-62.0) fl RDW Coeff of Vera 14 (11.0-15.0) % Plt Count 197 (150-400) K/uL MPV 11.40 (7.40-12.00) fL Neut % (Auto) 93.6 H (48.0-80.0) % Lymph % (Auto) 4.3 L (16.0-40.0) % [place] % (Auto) 2.1 (0.0-15.0) % Eos % (Auto) 0.0 (0.0-7.0) % Baso % (Auto) 0.0 (0.0-1.5) % Neut # (Auto) 7.2 H (1.4-5.7) K/uL Lymph # (Auto) 0.3 L (0.6-2.4) K/uL [place] # (Auto) 0.2 (0.0-0.8) K/uL Eos # (Auto) 0.0 (0.0-0.7) K/uL Baso # (Auto) 0.0 (0.0-0.1) K/uL Nucleated RBC % 0.0 /100WBC Nucleated RBCs # 0 K/uL Sodium 140 (136-145) mmol/L Potassium 4.9 (3.5-5.1) mmol/L Chloride 95 L (98-107) mmol/L Carbon Dioxide 43.6 H (21.0-32.0) mmol/L BUN 19 H (7.0-18.0) mg/dL Creatinine 0.5 L (0.6-1.0) mg/dL Est Cr Clr Drug Dosing 121.81 mL/min Estimated GFR (MDRD) > 60.0 ml/min Glucose 145 H (74-106) mg/dL Calcium 8.8 (8.5-10.1) mg/dL Total Bilirubin 0.3 (0.2-1.0) mg/dL AST 13 L (15-37) IU/L ALT 25 (14-63) IU/L Alkaline Phosphatase 112 (46-116) U/L Total Protein 6.8 (6.4-8.2) g/dL Albumin 3.1 L (3.4-5.0) g/dL Globulin 3.7 (2.6-4.0) g/dL Albumin/Globulin Ratio 0.8 L (0.9-1.6) Twan Results Last 24 Hours: Microbiology 04/20/21 22:55 Aerobic Blood Culture - Preliminary Blood - Venous - Lab Draw NO GROWTH AFTER 2 DAYS Anaerobic Blood Culture - Preliminary NO GROWTH AFTER 2 DAYS 04/20/21 22:45 Aerobic Blood Culture - Preliminary Blood - Venous NO GROWTH AFTER 2 DAYS Anaerobic Blood Culture - Preliminary NO GROWTH AFTER 2 DAYS Med Orders - Current: Current Medications Acetaminophen (Acetaminophen 325 Mg Tab) 650 mg PO Q6H PRN PRN Reason: Pain/Fever Last Admin: 04/22/21 06:00 Dose: 650 mg Documented by: Albuterol/Ipratropium (Albuterol/Ipratropium 3.0-0.5 Mg/3 Ml Neb Soln) 3 ml NEB Q4HRRT [facility] Last Admin: 04/23/21 17:26 Dose: 3 ml Documented by: Albuterol/Ipratropium (Albuterol/Ipratropium 4 Gm Inhalation [place]) 0 gm INH Q4H PRN PRN Reason: Dyspnea Aspirin (Aspirin 81 Mg Tab.Ec) 81 mg PO DAILY [facility] Last Admin: 04/23/21 08:37 Dose: 81 mg Documented by: Cholecalciferol (Cholecalciferol (Vitamin D3) 25 Mcg Tab) 25 mcg PO DAILY [facility] Last Admin: 04/23/21 08:36 Dose: 25 mcg Documented by: Enoxaparin Sodium (Enoxaparin 40 Mg/0.4 Ml Syringe) 40 mg SUBCUT DAILY [facility] Last Admin: 04/23/21 08:44 Dose: Not Given Documented by: Furosemide (Furosemide 40 Mg Tab) 40 mg PO DAILY [facility] Last Admin: 04/23/21 08:37 Dose: 40 mg Documented by: Guaifenesin/Dextromethorphan (Guaifenesin/Dextromethorphan 100-10 Mg/5 Ml Soln 10 Ml Cup) 10 ml PO Q4H PRN PRN Reason: Cough Levofloxacin/Dextrose 750 mg/ (Premix) 150 mls @ 100 mls/hr IV DAILY [facility] Last Admin: 04/23/21 08:33 Dose: 100 mls/hr Documented by: Pantoprazole Sodium 40 mg/ (Sodium Chloride) 10 mls @ 300 mls/hr IV DAILY [facility] Last Admin: 04/23/21 08:35 Dose: 300 mls/hr Documented by: Lisinopril (Lisinopril 10 Mg Tab) 10 mg PO DAILY [facility] Last Admin: 04/23/21 08:37 Dose: 10 mg Documented by: Melatonin (Melatonin 3 Mg Tab) 6 mg PO BEDTIME PRN PRN Reason: Sleep Methylprednisolone Sodium Succinate (Methylprednisolone Sodium Succinate 125 Mg/2 Ml Sdv) 60 mg IVPUSH Q8H [facility] Last Admin: 04/23/21 15:12 Dose: 60 mg Documented by: Multivitamins/Minerals/Vitamin C (Multivitamin Tab) 1 tab PO DAILY [facility] Last Admin: 04/23/21 08:37 Dose: 1 tab Documented by: Ondansetron HCl (Ondansetron 4 Mg/2 Ml Sdv) 4 mg IVPUSH Q4H PRN PRN Reason: Nausea/Vomiting Fluticasone/Umeclidin/Vilanter [ Trelegy Ellipta 100- 62.5- 1 each INH DAILY [facility] Last Admin: 04/23/21 09:00 Dose: Not Given Documented by: Discontinued Medications Albuterol/Ipratropium (Albuterol/Ipratropium 3.0-0.5 Mg/3 Ml Neb Soln) 3 ml NEB ONETIME ONE Stop: 04/20/21 22:10 Last Admin: 04/20/21 22:21 Dose: 3 ml Documented by: Albuterol/Ipratropium (Albuterol/Ipratropium 3.0-0.5 Mg/3 Ml Neb Soln) 3 ml NEB ONETIME ONE Stop: 04/20/21 22:11 Last Admin: 04/20/21 22:21 Dose: 3 ml Documented by: Albuterol/Ipratropium (Albuterol/Ipratropium 3.0-0.5 Mg/3 Ml Neb Soln) 3 ml NEB ONETIME ONE Stop: 04/20/21 22:11 Last Admin: 04/20/21 22:21 Dose: 3 ml Documented by: Cefepime HCl 2 gm/ Premix 50 mls @ 100 mls/hr IV ONETIME ONE Stop: 04/20/21 22:56 Last Admin: 04/20/21 23:02 Dose: 100 mls/hr Documented by: Lactated Ringer's (Ringers, Lactated) 1,000 mls @ 999 mls/hr IV ASDIRECTED [facility] Last Admin: 04/20/21 22:39 Dose: 999 mls/hr Documented by: Vancomycin HCl 2 gm/ Premix 400 mls @ 200 mls/hr IV NOW ONE Stop: 04/21/21 00:59 Last Admin: 04/20/21 23:31 Dose: 200 mls/hr Documented by: Vancomycin HCl 2 gm/ Premix 400 mls @ 200 mls/hr IV Q12H [facility] Pantoprazole Sodium 40 mg/ (Sodium Chloride) 10 mls @ 300 mls/hr IV DAILY [facility] Last Admin: 04/21/21 22:35 Dose: Not Given Documented by: Methylprednisolone Sodium Succinate (Methylprednisolone Sodium Succinate 40 Mg/1 Ml Sdv) 40 mg IVPUSH Q8H [facility] Last Admin: 04/22/21 13:01 Dose: 40 mg Documented by: Prednisone (Prednisone 20 Mg Tab) 60 mg PO ONETIME ONE Stop: 04/20/21 22:11 Last Admin: 04/20/21 22:20 Dose: 60 mg Documented by: Vancomycin HCl (Pharmacy To Dose - Vancomycin) 1 dose .XX ONETIME ONE Stop: 04/20/21 22:28 - Patient Data Lab Results Last 24 hrs: Laboratory Results - last 24 hr 04/23/21 04/23/21 Range/Units 05:58 05:58 WBC 7.70 (4.0-11.0) K/uL RBC 4.92 (4.30-5.90) M/uL Hgb 15.4 (12.0-16.0) g/dL Hct 49.4 H (36.0-46.0) % MCV 100.4 H (80.0-98.0) fL MCH 31.3 (27.0-32.0) pg MCHC 31.2 (31.0-37.0) g/dL RDW Std Deviation 51.1 (28.0-62.0) fl RDW Coeff of Vera 14 (11.0-15.0) % Plt Count 197 (150-400) K/uL MPV 11.40 (7.40-12.00) fL Neut % (Auto) 93.6 H (48.0-80.0) % Lymph % (Auto) 4.3 L (16.0-40.0) % [place] % (Auto) 2.1 (0.0-15.0) % Eos % (Auto) 0.0 (0.0-7.0) % Baso % (Auto) 0.0 (0.0-1.5) % Neut # (Auto) 7.2 H (1.4-5.7) K/uL Lymph # (Auto) 0.3 L (0.6-2.4) K/uL [place] # (Auto) 0.2 (0.0-0.8) K/uL Eos # (Auto) 0.0 (0.0-0.7) K/uL Baso # (Auto) 0.0 (0.0-0.1) K/uL Nucleated RBC % 0.0 /100WBC Nucleated RBCs # 0 K/uL Sodium 140 (136-145) mmol/L Potassium 4.9 (3.5-5.1) mmol/L Chloride 95 L (98-107) mmol/L Carbon Dioxide 43.6 H (21.0-32.0) mmol/L BUN 19 H (7.0-18.0) mg/dL Creatinine 0.5 L (0.6-1.0) mg/dL Est Cr Clr Drug Dosing 121.81 mL/min Estimated GFR (MDRD) > 60.0 ml/min Glucose 145 H (74-106) mg/dL Calcium 8.8 (8.5-10.1) mg/dL Total Bilirubin 0.3 (0.2-1.0) mg/dL AST 13 L (15-37) IU/L ALT 25 (14-63) IU/L Alkaline Phosphatase 112 (46-116) U/L Total Protein 6.8 (6.4-8.2) g/dL Albumin 3.1 L (3.4-5.0) g/dL Globulin 3.7 (2.6-4.0) g/dL Albumin/Globulin Ratio 0.8 L (0.9-1.6) Result Diagrams: 11/03/21 05:58 04/23/21 05:58 [place] Results Last 24 hrs: Microbiology 04/20/21 22:55 Aerobic Blood Culture - Preliminary Blood - Venous - Lab Draw NO GROWTH AFTER 2 DAYS Anaerobic Blood Culture - Preliminary NO GROWTH AFTER 2 DAYS 04/20/21 22:45 Aerobic Blood Culture - Preliminary Blood - Venous NO GROWTH AFTER 2 DAYS Anaerobic Blood Culture - Preliminary NO GROWTH AFTER 2 DAYS Sepsis Event Note - Focused Exam Vital Signs: Vital Signs Temp Pulse Resp BP BP Pulse Ox 04/23/21 19:00 36.3 C 99 20 121/72 121/72 88 L 04/23/21 17:00 36.3 C 99 20 121/72 88 L 04/23/21 13:00 35.9 C L 91 20 114/69 91 L 04/23/21 09:00 36.3 C 94 20 116/71 88 L - My Orders Last 24 Hours: My Active Orders 04/23/21 09:00 Patient's Own Medication [Ptom] 1 each INH DAILY
[2021-04-24] MEDS: Albuterol/Ipratropium 3.0-0.5 MG/3 ML Neb Soln NEB SCH ×3 (02:30→09:38)
[2021-04-24 07:11] LABS: BLOOD UREA NITROGEN,BUN 21 mg/dL (7.0-18.0); CARBON DIOXIDE,CO2 42.2 mmol/L (21.0-32.0); CHLORIDE,CL 95 mmol/L (98-107); GLUCOSE RANDOM 146 mg/dL (74-106); POTASSIUM,K 4.9 mmol/L (3.5-5.1); SODIUM,NA 140 mmol/L (136-145)
[2021-04-24] MEDS: Fluticasone/Umeclidin/Vilanter [Trelegy Ellipta 100-62.5- INH SCH (08:13)
[2021-04-24] MEDS: Cholecalciferol (Vitamin D3) 25 MCG Tab PO SCH (08:52)
[2021-04-24] MEDS: Furosemide 40 MG Tab PO SCH (08:53)
[2021-04-24] MEDS: Multivitamin Tab PO SCH (08:53)
[2021-04-24] MEDS: Aspirin 81 MG Tab.EC PO SCH (08:53)
[2021-04-24] MEDS: Lisinopril 10 MG Tab PO SCH (08:53)
[2021-04-24] MEDS: Pantoprazole 40 MG in Sodium Chloride 0.9% 10 ML IV SCH (08:54)
[2021-04-24] MEDS: methylPREDNISolone Sodium Succinate 125 MG/2 ML SDV IVPUSH SCH (08:55)
[2021-04-24] MEDS: Levofloxacin/Dextrose 5%-Water 750 MG in Premix Bag 1 BAG IV SCH (08:59)
[2021-04-24] MEDS: Enoxaparin 40 MG/0.4 ML Syringe SUBCUT SCH (09:00)
--- NOTE | 2021-04-24 11:34 | PCM.DCSUM1 ---
Discharge Summary - Hospital Course Free Text/Narrative:: The patient is a 55-year-old female, on day 4 of service, with a significant past medical history of chronic obstructive pulmonary disease with 4 L of oxygen at home, congestive heart failure, and hypertension, who was admitted to the medical floor due to a COPD exacerbation and right lower lobe pneumonia. During her hospital course she was supplied with oxygen as well as duo nebs, Combivent, Robitussin, Solu-Medrol, and Levaquin as an antibiotic. Over the past 48 hours she has significantly improved with respect to her shortness of breath and cough and is stable enough to be discharged from the hospital. She will be sent home on a prescription of Levaquin per oral route for 3 days with 1 pill taken daily. She will also be sent home with prednisone 40 mg per oral route to be taken daily for a 5-day course. She will also have refills given to her for lisinopril, albuterol, and Trelegy. The patient has been advised to return to the hospital if she has increased shortness of breath, respiratory difficulty, and/or chest pain. She has been educated on following up with her PCP in 1 to 2 weeks time. - Discharge Data Discharge Date: 04/24/21 Discharge Disposition: Home, Self-Care 01 Condition: Stable - Referral to Home Health Primary Care Physician: PCP None - Discharge Diagnosis/Problem(s) (1) HTN (hypertension) SNOMED Code(s): 29587239 ICD Code: I10 - ESSENTIAL (PRIMARY) HYPERTENSION Status: Acute Current Visit: Yes (2) CHF (congestive heart failure) SNOMED Code(s): 02909720 ICD Code: I50.9 - HEART FAILURE, UNSPECIFIED Status: Acute Current Visit: No (3) COPD (chronic obstructive pulmonary disease) SNOMED Code(s): 01067907 ICD Code: J44.9 - CHRONIC OBSTRUCTIVE PULMONARY DISEASE, UNSPECIFIED Status: Acute Current Visit: No (4) COPD exacerbation SNOMED Code(s): 359154615 ICD Code: J44.1 - CHRONIC OBSTRUCTIVE PULMONARY DISEASE W (ACUTE) EXACERBATION Status: Acute Current Visit: No (5) Community acquired pneumonia SNOMED Code(s): 180081290 ICD Code: J18.9 - PNEUMONIA, UNSPECIFIED ORGANISM Status: Acute Current Visit: No Qualifiers: Laterality: right Lung location: lower lobe of lung Qualified Code(s): J18.9 - Pneumonia, unspecified organism - Patient Instructions Diet: Regular Diet as Tolerated Activity: As Tolerated Showering/Bathing: May Shower Other/Special Instructions: -If you have respiratory difficulty, chest pain, palpitations return to the hospital. -Be compliant with your medications and take them at scheduled times. -Follow-up with your PCP in 1 to 2 weeks time - Discharge Plan Prescriptions/Med Rec: Albuterol/Ipratropium [DuoNeb 3.0-0.5 MG/3 ML] 3 ml NEB Q4HRRT #3 bottle levoFLOXacin [Levofloxacin] 750 mg PO DAILY #3 tablet predniSONE 40 mg PO WITHBREAKFAST 5 Days #5 tab lisinopriL [Prinivil] 10 mg PO DAILY #30 tablet Fluticasone/Umeclidin/Vilanter [Trelegy Ellipta 100-62.5-25 MCG] 1 puff INH DAILY #1 inhaler Home Medications: Home Meds Albuterol Sulfate 2.5 mg NEB Q4H PRN 12/05/19 [History] Cholecalciferol (Vitamin D3) [Vitamin D3] 25 mcg PO DAILY 12/05/19 [History] Multivitamin [Multi-Vitamin Daily] 1 tab PO DAILY 12/05/19 [History] lisinopriL [Lisinopril] 10 mg PO DAILY 12/05/19 [History] Albuterol [Ventolin HFA] 2 inh INH Q4H PRN 08/06/20 [History] Furosemide [Lasix] 40 mg PO DAILY 08/06/20 [History] Aspirin [Halfprin] 81 mg PO DAILY 12/04/20 [History] Melatonin 5 mg PO BEDTIME PRN 12/04/20 [History] Albuterol/Ipratropium [DuoNeb 3.0-0.5 MG/3 ML] 3 ml NEB Q4HRRT #3 bottle 04/24/21 [Rx] Fluticasone/Umeclidin/Vilanter [Trelegy Ellipta 100-62.5-25 MCG] 1 puff INH DAILY #1 inhaler 04/24/21 [Rx] levoFLOXacin [Levofloxacin] 750 mg PO DAILY #3 tablet 04/24/21 [Rx] lisinopriL [Prinivil] 10 mg PO DAILY #30 tablet 04/24/21 [Rx] predniSONE 40 mg PO WITHBREAKFAST 5 Days #5 tab 04/24/21 [Rx] Patient Handouts: Chronic Obstructive Pulmonary Disease Exacerbation, [id number], Hypoxia, How to Take Your Blood Pressure, [id number], Hypertension, Adult, Xale-nw-Impi, Preventing Hypertension, Lisinopril Oral Tablets, Levofloxacin tablets, Ipratropium; Albuterol Inhalation Solution, Prednisone tablets, Fluticasone; Umeclidinium; Vilanterol inhalation powder, Managing Your Hypertension Referrals: Solomon Walker MD [Resident] - 05/01/21 9:30 am - Discharge Summary/Plan Comment DC Time >30 min.: Yes Total # of Minutes for Discharge Time: 35 minutes - Review of Systems General: Denies: Fever, Fatigue, Chills HEENT: Denies: Sore Throat Pulmonary: Denies: Shortness of Breath, Cough Cardiovascular: Denies: Chest Pain, Palpitations Gastrointestinal: Denies: Abdominal Pain Genitourinary: Denies: Dysuria - Patient Data Vitals - Most Recent: Last Vital Signs Temp 97.4 F 04/24/21 07:20 Pulse 84 04/24/21 07:20 Resp 16 04/24/21 07:20 BP 133/68 04/24/21 08:53 Pulse Ox 88 L 04/24/21 11:20 Weight - Most Recent: 213 lb 10.047 oz I&O - Last 24 hours: Intake & Output 04/23/21 04/24/21 04/24/21 22:59 06:59 14:59 Intake Total 1360 750 350 Output Total 1700 Balance -340 750 350 Lab Results - Last 24 hrs: Laboratory Results - last 24 hr 04/24/21 04/24/21 Range/Units 05:50 05:50 WBC 8.56 (4.0-11.0) K/uL RBC 5.15 (4.30-5.90) M/uL Hgb 16.2 H (12.0-16.0) g/dL Hct 50.6 H (36.0-46.0) % MCV 98.3 H (80.0-98.0) fL MCH 31.5 (27.0-32.0) pg MCHC 32.0 (31.0-37.0) g/dL RDW Std Deviation 49.8 (28.0-62.0) fl RDW Coeff of Vera 14 (11.0-15.0) % Plt Count 195 (150-400) K/uL MPV 11.20 (7.40-12.00) fL Neut % (Auto) 93.1 H (48.0-80.0) % Lymph % (Auto) 3.4 L (16.0-40.0) % [place] % (Auto) 3.4 (0.0-15.0) % Eos % (Auto) 0.0 (0.0-7.0) % Baso % (Auto) 0.1 (0.0-1.5) % Neut # (Auto) 8.0 H (1.4-5.7) K/uL Lymph # (Auto) 0.3 L (0.6-2.4) K/uL [place] # (Auto) 0.3 (0.0-0.8) K/uL Eos # (Auto) 0.0 (0.0-0.7) K/uL Baso # (Auto) 0.0 (0.0-0.1) K/uL Sodium 140 (136-145) mmol/L Potassium 4.9 (3.5-5.1) mmol/L Chloride 95 L (98-107) mmol/L Carbon Dioxide 42.2 H (21.0-32.0) mmol/L BUN 21 H (7.0-18.0) mg/dL Creatinine 0.5 L (0.6-1.0) mg/dL Est Cr Clr Drug Dosing 121.81 mL/min Estimated GFR (MDRD) > 60.0 ml/min Glucose 146 H (74-106) mg/dL Calcium 8.8 (8.5-10.1) mg/dL Total Bilirubin 0.3 (0.2-1.0) mg/dL AST 14 L (15-37) IU/L ALT 43 (14-63) IU/L Alkaline Phosphatase 112 (46-116) U/L Total Protein 6.5 (6.4-8.2) g/dL Albumin 3.2 L (3.4-5.0) g/dL Globulin 3.3 (2.6-4.0) g/dL Albumin/Globulin Ratio 1.0 (0.9-1.6) JAMES Results - Last 24 hrs: Microbiology 04/20/21 22:55 Aerobic Blood Culture - Preliminary Blood - Venous - Lab Draw NO GROWTH AFTER 3 DAYS Anaerobic Blood Culture - Preliminary NO GROWTH AFTER 3 DAYS 04/20/21 22:45 Aerobic Blood Culture - Preliminary Blood - Venous NO GROWTH AFTER 3 DAYS Anaerobic Blood Culture - Preliminary NO GROWTH AFTER 3 DAYS Med Orders - Current: Current Medications Acetaminophen (Acetaminophen 325 Mg Tab) 650 mg PO Q6H PRN PRN Reason: Pain/Fever Last Admin: 04/22/21 06:00 Dose: 650 mg Documented by: Albuterol/Ipratropium (Albuterol/Ipratropium 3.0-0.5 Mg/3 Ml Neb Soln) 3 ml NEB Q4HRRT [facility] Last Admin: 04/24/21 09:38 Dose: 3 ml Documented by: Albuterol/Ipratropium (Albuterol/Ipratropium 4 Gm Inhalation [place]) 0 gm INH Q4H PRN PRN Reason: Dyspnea Aspirin (Aspirin 81 Mg Tab.Ec) 81 mg PO DAILY [facility] Last Admin: 04/24/21 08:53 Dose: 81 mg Documented by: Cholecalciferol (Cholecalciferol (Vitamin D3) 25 Mcg Tab) 25 mcg PO DAILY [facility] Last Admin: 04/24/21 08:52 Dose: 25 mcg Documented by: Enoxaparin Sodium (Enoxaparin 40 Mg/0.4 Ml Syringe) 40 mg SUBCUT DAILY [facility] Last Admin: 04/24/21 09:00 Dose: Not Given Documented by: Furosemide (Furosemide 40 Mg Tab) 40 mg PO DAILY [facility] Last Admin: 04/24/21 08:53 Dose: 40 mg Documented by: Guaifenesin/Dextromethorphan (Guaifenesin/Dextromethorphan 100-10 Mg/5 Ml Soln 10 Ml Cup) 10 ml PO Q4H PRN PRN Reason: Cough Levofloxacin/Dextrose 750 mg/ (Premix) 150 mls @ 100 mls/hr IV DAILY [facility] Last Admin: 04/24/21 08:59 Dose: 100 mls/hr Documented by: Pantoprazole Sodium 40 mg/ (Sodium Chloride) 10 mls @ 300 mls/hr IV DAILY [facility] Last Admin: 04/24/21 08:54 Dose: 300 mls/hr Documented by: Lisinopril (Lisinopril 10 Mg Tab) 10 mg PO DAILY [facility] Last Admin: 04/24/21 08:53 Dose: 10 mg Documented by: Melatonin (Melatonin 3 Mg Tab) 6 mg PO BEDTIME PRN PRN Reason: Sleep Methylprednisolone Sodium Succinate (Methylprednisolone Sodium Succinate 125 Mg/2 Ml Sdv) 60 mg IVPUSH Q8H [facility] Last Admin: 04/24/21 08:55 Dose: 60 mg Documented by: Multivitamins/Minerals/Vitamin C (Multivitamin Tab) 1 tab PO DAILY [facility] Last Admin: 04/24/21 08:53 Dose: 1 tab Documented by: Ondansetron HCl (Ondansetron 4 Mg/2 Ml Sdv) 4 mg IVPUSH Q4H PRN PRN Reason: Nausea/Vomiting Fluticasone/Umeclidin/Vilanter [ Trelegy Ellipta 100- 62.5- 1 each INH DAILY [facility] Last Admin: 04/24/21 08:13 Dose: Not Given Documented by: Discontinued Medications Albuterol/Ipratropium (Albuterol/Ipratropium 3.0-0.5 Mg/3 Ml Neb Soln) 3 ml NEB ONETIME ONE Stop: 04/20/21 22:10 Last Admin: 04/20/21 22:21 Dose: 3 ml Documented by: Albuterol/Ipratropium (Albuterol/Ipratropium 3.0-0.5 Mg/3 Ml Neb Soln) 3 ml NEB ONETIME ONE Stop: 04/20/21 22:11 Last Admin: 04/20/21 22:21 Dose: 3 ml Documented by: Albuterol/Ipratropium (Albuterol/Ipratropium 3.0-0.5 Mg/3 Ml Neb Soln) 3 ml NEB ONETIME ONE Stop: 04/20/21 22:11 Last Admin: 04/20/21 22:21 Dose: 3 ml Documented by: Cefepime HCl 2 gm/ Premix 50 mls @ 100 mls/hr IV ONETIME ONE Stop: 04/20/21 22:56 Last Admin: 04/20/21 23:02 Dose: 100 mls/hr Documented by: Lactated Ringer's (Ringers, Lactated) 1,000 mls @ 999 mls/hr IV ASDIRECTED [facility] Last Admin: 04/20/21 22:39 Dose: 999 mls/hr Documented by: Vancomycin HCl 2 gm/ Premix 400 mls @ 200 mls/hr IV NOW ONE Stop: 04/21/21 00:59 Last Admin: 04/20/21 23:31 Dose: 200 mls/hr Documented by: Vancomycin HCl 2 gm/ Premix 400 mls @ 200 mls/hr IV Q12H [facility] Pantoprazole Sodium 40 mg/ (Sodium Chloride) 10 mls @ 300 mls/hr IV DAILY [facility] Last Admin: 04/21/21 22:35 Dose: Not Given Documented by: Methylprednisolone Sodium Succinate (Methylprednisolone Sodium Succinate 40 Mg/1 Ml Sdv) 40 mg IVPUSH Q8H [facility] Last Admin: 04/22/21 13:01 Dose: 40 mg Documented by: Prednisone (Prednisone 20 Mg Tab) 60 mg PO ONETIME ONE Stop: 04/20/21 22:11 Last Admin: 04/20/21 22:20 Dose: 60 mg Documented by: Vancomycin HCl (Pharmacy To Dose - Vancomycin) 1 dose .XX ONETIME ONE Stop: 04/20/21 22:28 - Exam General: Reports: Alert, Oriented, Cooperative HEENT: Reports: Mucous Membr. Moist/[place] Neck: Denies: Lymphadenopathy Lungs: Reports: Clear to Auscultation, Normal Respiratory Effort Cardiovascular: Reports: Regular Rate, Regular Rhythm GI/Abdominal Exam: Normal Bowel Sounds
[2021-04-24 12:35] VITALS: BP 130/70; PULSE 90
== END 2021-04-24 11:40 | disposition home or self-care (01) | DRG 193 ==
LOC: MW.ED 20:50 → MW.MS 04-21 00:50
PROVIDERS: ADMIT Student in an Organized Health Care Education/Training Program; ATTEND Student in an Organized Health Care Education/Training Program
DX: J18.9 Pneumonia, unspecified organism (principal); J96.00 Acute respiratory failure, unspecified whether with hypoxia or hypercapnia; J44.1 Chronic obstructive pulmonary disease with (acute) exacerbation; J44.0 Chronic obstructive pulmonary disease with (acute) lower respiratory infection; I11.0 Hypertensive heart disease with heart failure; I50.9 Heart failure, unspecified; E78.5 Hyperlipidemia, unspecified; Z90.89 Acquired absence of other organs; Z90.49 Acquired absence of other specified parts of digestive tract; Z98.890 Other specified postprocedural states; Z98.51 Tubal ligation status; D75.89 Other specified diseases of blood and blood-forming organs
CPT/HCPCS: 36415; 36600; 71045; 71045-26; 80048; 80053; 80202; 82607; 82746; 82803; 83605; 83735; 83880; 84100; 84484; 85025; 85610; 87040; 93005; 94640; 96365; 96367; 99291; A9270-GY; C9113; J0692; J1650; J1956; J2920; J2930; J3370; J7120; J7620-GY; U0002

== ENCOUNTER 2021-05-10 17:39 | Inpatient (IN) | payer OTHER ==
--- NOTE | 2021-05-10 17:58 | EDM.PDOC ---
ED HPI GENERAL MEDICAL PROBLEM - General Chief Complaint: Respiratory Problem Stated Complaint: SOB Time Seen by Provider: 05/10/21 17:53 Source of Information: Reports: Patient History Limitations: Reports: No Limitations - History of Present Illness INITIAL COMMENTS - FREE TEXT/NARRATIVE: HISTORY AND PHYSICAL: History of present illness: Patient is a 55-year-old female who presents to the emergency room with complaints of shortness of breath, generalized upper back and neck pain and hypoxia x4 days. Patient does have a significant past medical history of COPD and is oxygen dependent at 3 L per nasal cannula. She states she was admitted to the [facility] unit for respiratory failure and pneumonia on 04/21/2021. She states she was discharged and had felt overall well. Her daughter had been diagnosed with COVID-19 1 week ago and has been exposed to her. Over the past 3 to 4 days she has had increased shortness of breath with her oxygen saturation at home 79 to 83%, states she typically runs 85 to 86%. She states she has not been vaccinated for influenza or COVID-19. Patient has a longstanding history of tobacco use, 30+ years. Patient denies any fever, chills, headache, change in vision, syncope or near syncope. Denies any abdominal pain, nausea, vomiting, diarrhea, constipation or dysuria. Has not noted any blood in urine or stool. Patient has been eating and drinking appropriately. No recent travel or sick contacts. Review of systems: As per history of present illness and below otherwise all systems reviewed and negative. Past medical history: As per history of present illness and as reviewed below otherwise noncontributory. Surgical history: As per history of present illness and as reviewed below otherwise noncontributory. Social history: See social history for further information Family history: As per history of present illness and as reviewed below otherwise noncontributory. Physical exam: General: Well developed and well nourished 55-year-old female. Alert and orientated x 3. Nontoxic in appearance and in no acute distress. Vital signs are stable and have been reviewed by me. Nursing notes were reviewed. HEENT: Atraumatic, normocephalic, pupils equal and reactive bilaterally, negative for conjunctival pallor or scleral icterus, mucous membranes moist, neck supple, nontender, trachea midline. No drooling or trismus noted. No meningeal signs. No hot potato voice noted. Lungs: Poor air exchange and diminished to auscultation bilaterally. No wheezes, rales, or rhonchi. Chest nontender. Normal work of breathing, no accessory muscles used. Heart: S1S2, regular rate and rhythm without overt murmur, gallops, or rubs. No JVD. No peripheral edema Abdomen: Soft, nondistended, nontender. Normoactive bowel sounds. Negative for masses or costovertebral tenderness. Skin: Intact, warm, dry. No lesions or rashes noted. Hematologic: No petechiae or purpra. Mucosa appropriate color and normal nail bed color and refill. Extremities: Atraumatic, moves all extremities per self without difficulty or deficits, negative for cords or calf pain. Neurovascular unremarkable. Neuro: Awake, alert, oriented. Cranial nerves II through XII unremarkable. Cerebellum unremarkable. Motor and sensory unremarkable throughout. Exam nonfocal. Psychiatric: Mood and affect are appropriate. Normal thought process. Answering questions appropriately. Please note that the patient was seen and evaluated during the 2019 SARS-CoV-2 novel coronavirus pandemic period. Community viral transmission is ongoing at time of this encounter and the emergency department is operating under pandemic response procedures. Medical Decision Making: Patient is a 55-year-old female who presents to the emergency room with complaints of shortness of breath and hypoxia. Patient has a history of COPD and pneumonia and is on oxygen, 3L per nasal cannula. Patient states she has been around her daughter who recently was diagnosed with COVID-19. Triage states her oxygen saturation was 75% on 3 L per nasal cannula, increased to 5 L she is 83%. Patient does have a elevated D-dimer at 1.82. Normal lactate and BNP. Negative troponin. She is positive for COVID-19. 1 view chest x-ray shows no evidence of any new or acute findings. We will start remdesivir and give Decadron. Due to her chronic health problems with her lungs and the elevated D-dimer I will get a CT of her chest to rule out PE. Chest CT shows a pulmonary embolism in the right upper lobe. Consolidative infiltrates in both lower lobes, right greater than left. Patchy ill-defined foci of additional infiltrates within the left upper lobe. Persistent right hilar and right infrahilar/bronchovascular adenopathy. Have ordered our VTE protocol, heparin bolus and infusion ordered. Discussed with patient all of today's findings. She is agreeable to being admitted for further care and management. Dr. Yun was made aware of this patient and is agreeable as well. Diagnostics: CBC, CMP, chest x-ray, blood cultures x2, lactate, mag, COVID-19, influenza Therapeutics: Oxygen, Remdesivir, Decadron, Heparin bolus Impression: PE COVID-19 Hypoxia Plan: INpatient admission Definitive disposition and diagnosis as appropriate pending reevaluation and review of above. - Related Data Allergies Allergy/AdvReac Type Severity Reaction Status Date / Time cephalexin [From Keflex] Allergy Hives Verified 05/10/21 18:07 diclofenac Allergy Rash Verified 05/10/21 18:07 oxycodone [From Percocet] Allergy Rash Verified 05/10/21 18:07 Home Meds: Home Meds Albuterol Sulfate 2.5 mg NEB Q4H PRN 12/05/19 [History] Cholecalciferol (Vitamin D3) [Vitamin D3] 25 mcg PO DAILY 12/05/19 [History] Multivitamin [Multi-Vitamin Daily] 1 tab PO DAILY 12/05/19 [History] lisinopriL [Lisinopril] 10 mg PO DAILY 12/05/19 [History] Albuterol [Ventolin HFA] 2 inh INH Q4H PRN 08/06/20 [History] Furosemide [Lasix] 40 mg PO DAILY 08/06/20 [History] Aspirin [Halfprin] 81 mg PO DAILY 12/04/20 [History] Melatonin 5 mg PO BEDTIME PRN 12/04/20 [History] Albuterol/Ipratropium [DuoNeb 3.0-0.5 MG/3 ML] 3 ml NEB Q4HRRT #3 bottle 04/24/21 [Rx] Fluticasone/Umeclidin/Vilanter [Trelegy Ellipta 100-62.5-25 MCG] 1 puff INH DAILY #1 inhaler 04/24/21 [Rx] levoFLOXacin [Levofloxacin] 750 mg PO DAILY #3 tablet 04/24/21 [Rx] lisinopriL [Prinivil] 10 mg PO DAILY #30 tablet 04/24/21 [Rx] predniSONE 40 mg PO WITHBREAKFAST 5 Days #5 tab 04/24/21 [Rx] Past Medical History HEENT History: Reports: Other (See Below) Other HEENT History: sinus issues Cardiovascular History: Reports: High Cholesterol, Hypertension Respiratory History: Reports: Bronchitis, Recurrent, COPD, Sleep Apnea Gastrointestinal History: Reports: None Genitourinary History: Reports: None 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: Musculoskeletal History: Reports: Back Pain, Chronic Neurological History: Reports: None Psychiatric History: Reports: None Endocrine/Metabolic History: Reports: Obesity/BMI 30+ Hematologic History: Reports: None Immunologic History: Reports: None Oncologic (Cancer) History: Reports: None Dermatologic History: Reports: None - Infectious Disease History Infectious Disease History: Reports: Chicken Pox - Past Surgical History Head Surgeries/Procedures: Reports: None HEENT Surgical History: Reports: Tonsillectomy Cardiovascular Surgical History: Reports: None Respiratory Surgical History: Reports: None GI Surgical History: Reports: Cholecystectomy Female Surgical History: Reports: Tubal Ligation Endocrine Surgical History: Reports: None Musculoskeletal Surgical History: Reports: Other (See Below) Other Musculoskeletal Surgeries/Procedures:: Left arm surgery Social & Family History - Family History Family Medical History: No Pertinent Family History - Caffeine Use Caffeine Use: Reports: Coffee, Soda, Tea Caffeine Use Comment: seldom drinks energy drinks - Living Situation & Occupation Occupation: Employed ED ROS GENERAL - Review of Systems Review Of Systems: Comprehensive ROS is negative, except as noted in HPI. ED EXAM, GENERAL - Physical Exam Exam: See Below (See dictation) Course - Vital Signs Last Recorded V/S: Last Vital Signs Temp 98 F 05/10/21 18:04 Pulse 91 05/10/21 20:20 Resp 20 05/10/21 20:20 BP 100/55 L 05/10/21 20:20 Pulse Ox 96 05/10/21 20:20 - Orders/Labs/Meds Orders: Active Orders 24 hr Category Date Time Status CULTURE BLOOD [BC] Stat Lab 05/10/21 18:48 Results CULTURE BLOOD [BC] Stat Lab 05/10/21 18:53 Received UA RFX JAMES AND CULT IF INDIC [URIN] Stat Lab 05/10/21 17:58 Ordered Blood Culture x2 Reflex Set [OM.PC] Stat Oth 05/10/21 17:58 Ordered Isolation [COMM] Routine Oth 05/10/21 17:59 Active Medication Orders Heparin Sodium/Sodium Chloride (Heparin 25,000 Units In 1/2 Ns 500 Ml) 500 mls @ 26.082 mls/hr IV TITRATE KOLE; Protocol Labs: Laboratory Tests 05/10/21 05/10/21 05/10/21 Range/Units 17:55 18:16 18:16 WBC 3.83 L (4.0-11.0) K/uL RBC 4.53 (4.30-5.90) M/uL Hgb 14.1 (12.0-16.0) g/dL Hct 45.1 (36.0-46.0) % MCV 99.6 H (80.0-98.0) fL MCH 31.1 (27.0-32.0) pg MCHC 31.3 (31.0-37.0) g/dL RDW Std Deviation 53.3 (28.0-62.0) fl RDW Coeff of Vera 15 (11.0-15.0) % Plt Count 105 L (150-400) K/uL MPV 11.30 (7.40-12.00) fL Neut % (Auto) 68.4 (48.0-80.0) % Lymph % (Auto) 20.6 (16.0-40.0) % [place] % (Auto) 10.7 (0.0-15.0) % Eos % (Auto) 0.0 (0.0-7.0) % Baso % (Auto) 0.3 (0.0-1.5) % Neut # (Auto) 2.6 (1.4-5.7) K/uL Lymph # (Auto) 0.8 (0.6-2.4) K/uL [place] # (Auto) 0.4 (0.0-0.8) K/uL Eos # (Auto) 0.0 (0.0-0.7) K/uL Baso # (Auto) 0.0 (0.0-0.1) K/uL Nucleated RBC % 0.0 /100WBC Nucleated RBCs # 0 K/uL D-Dimer, Quantitative 1.82 H (0.0-0.50) mg/L FEU Sodium (136-145) mmol/L Potassium (3.5-5.1) mmol/L Chloride (98-107) mmol/L Carbon Dioxide (21.0-32.0) mmol/L BUN (7.0-18.0) mg/dL Creatinine (0.6-1.0) mg/dL Est Cr Clr Drug Dosing Estimated GFR (MDRD) ml/min Glucose (74-106) mg/dL Lactic Acid (0.4-2.0) mmol/L Calcium (8.5-10.1) mg/dL Magnesium (1.8-2.4) mg/dL Total Bilirubin (0.2-1.0) mg/dL Direct Bilirubin (0.0-0.5) mg/dL AST (15-37) IU/L ALT (14-63) IU/L Alkaline Phosphatase (46-116) U/L Troponin I (0.000-0.056) ng/mL B-Natriuretic Peptide (<100) PG/ML Total Protein (6.4-8.2) g/dL Albumin (3.4-5.0) g/dL Globulin (2.6-4.0) g/dL Albumin/Globulin Ratio (0.9-1.6) Influenza Type A RNA NEGATIVE (NEGATIVE) Influenza Type B RNA NEGATIVE (NEGATIVE) SARS-CoV-2 RNA (RUBIN) POSITIVE H (NEGATIVE) 05/10/21 05/10/21 05/10/21 Range/Units 18:16 18:16 18:16 WBC (4.0-11.0) K/uL RBC (4.30-5.90) M/uL Hgb (12.0-16.0) g/dL Hct (36.0-46.0) % MCV (80.0-98.0) fL MCH (27.0-32.0) pg MCHC (31.0-37.0) g/dL RDW Std Deviation (28.0-62.0) fl RDW Coeff of Vera (11.0-15.0) % Plt Count (150-400) K/uL MPV (7.40-12.00) fL Neut % (Auto) (48.0-80.0) % Lymph % (Auto) (16.0-40.0) % [place] % (Auto) (0.0-15.0) % Eos % (Auto) (0.0-7.0) % Baso % (Auto) (0.0-1.5) % Neut # (Auto) (1.4-5.7) K/uL Lymph # (Auto) (0.6-2.4) K/uL [place] # (Auto) (0.0-0.8) K/uL Eos # (Auto) (0.0-0.7) K/uL Baso # (Auto) (0.0-0.1) K/uL Nucleated RBC % /100WBC Nucleated RBCs # K/uL D-Dimer, Quantitative (0.0-0.50) mg/L FEU Sodium 139 (136-145) mmol/L Potassium 4.7 (3.5-5.1) mmol/L Chloride 98 (98-107) mmol/L Carbon Dioxide 43.4 H (21.0-32.0) mmol/L BUN 13 (7.0-18.0) mg/dL Creatinine 0.7 (0.6-1.0) mg/dL Est Cr Clr Drug Dosing TNP Estimated GFR (MDRD) > 60.0 ml/min Glucose 106 (74-106) mg/dL Lactic Acid (0.4-2.0) mmol/L Calcium 8.3 L (8.5-10.1) mg/dL Magnesium 1.8 (1.8-2.4) mg/dL Total Bilirubin 0.2 (0.2-1.0) mg/dL Direct Bilirubin 0.10 (0.0-0.5) mg/dL AST 27 (15-37) IU/L ALT 28 (14-63) IU/L Alkaline Phosphatase 85 (46-116) U/L Troponin I < 0.050 (0.000-0.056) ng/mL B-Natriuretic Peptide 19 (<100) PG/ML Total Protein 6.1 L (6.4-8.2) g/dL Albumin 2.3 L (3.4-5.0) g/dL Globulin 3.8 (2.6-4.0) g/dL Albumin/Globulin Ratio 0.6 L (0.9-1.6) Influenza Type A RNA (NEGATIVE) Influenza Type B RNA (NEGATIVE) SARS-CoV-2 RNA (RUBIN) (NEGATIVE) 05/10/21 Range/Units 18:53 WBC (4.0-11.0) K/uL RBC (4.30-5.90) M/uL Hgb (12.0-16.0) g/dL Hct (36.0-46.0) % MCV (80.0-98.0) fL MCH (27.0-32.0) pg MCHC (31.0-37.0) g/dL RDW Std Deviation (28.0-62.0) fl RDW Coeff of Vera (11.0-15.0) % Plt Count (150-400) K/uL MPV (7.40-12.00) fL Neut % (Auto) (48.0-80.0) % Lymph % (Auto) (16.0-40.0) % [place] % (Auto) (0.0-15.0) % Eos % (Auto) (0.0-7.0) % Baso % (Auto) (0.0-1.5) % Neut # (Auto) (1.4-5.7) K/uL Lymph # (Auto) (0.6-2.4) K/uL [place] # (Auto) (0.0-0.8) K/uL Eos # (Auto) (0.0-0.7) K/uL Baso # (Auto) (0.0-0.1) K/uL Nucleated RBC % /100WBC Nucleated RBCs # K/uL D-Dimer, Quantitative (0.0-0.50) mg/L FEU Sodium (136-145) mmol/L Potassium (3.5-5.1) mmol/L Chloride (98-107) mmol/L Carbon Dioxide (21.0-32.0) mmol/L BUN (7.0-18.0) mg/dL Creatinine (0.6-1.0) mg/dL Est Cr Clr Drug Dosing Estimated GFR (MDRD) ml/min Glucose (74-106) mg/dL Lactic Acid 0.5 (0.4-2.0) mmol/L Calcium (8.5-10.1) mg/dL Magnesium (1.8-2.4) mg/dL Total Bilirubin (0.2-1.0) mg/dL Direct Bilirubin (0.0-0.5) mg/dL AST (15-37) IU/L ALT (14-63) IU/L Alkaline Phosphatase (46-116) U/L Troponin I (0.000-0.056) ng/mL B-Natriuretic Peptide (<100) PG/ML Total Protein (6.4-8.2) g/dL Albumin (3.4-5.0) g/dL Globulin (2.6-4.0) g/dL Albumin/Globulin Ratio (0.9-1.6) Influenza Type A RNA (NEGATIVE) Influenza Type B RNA (NEGATIVE) SARS-CoV-2 RNA (RUBIN) (NEGATIVE) Meds: Medications Generic Name Dose Route Start Last Admin Trade Name Freq PRN Reason Stop Dose Admin Heparin Sodium/Sodium Chloride 500 mls @ 26.082 mls/hr 05/10/21 20:45 Heparin 25,000 Units In 1/2 Ns 500 Ml IV TITRATE KOLE Protocol 12.5 UNITS/KG/HR Discontinued Medications Generic Name Dose Route Start Last Admin Trade Name Freq PRN Reason Stop Dose Admin Dexamethasone 10 mg 05/10/21 19:52 05/10/21 20:13 Dexamethasone 10 Mg/Ml Sdv IVPUSH 05/10/21 19:53 10 mg ONETIME ONE Administration Heparin Sodium (Porcine) 5,000 units 05/10/21 20:33 Heparin Sodium 5,000 Units/Ml Vial IVPUSH 05/10/21 20:34 ONETIME ONE Remdesivir 200 mg/ Sodium 250 mls @ 250 mls/hr 05/10/21 19:52 05/10/21 20:14 Chloride IV 05/10/21 19:53 250 mls/hr ONETIME ONE Administration Iopamidol 100 ml 05/10/21 19:49 05/10/21 19:53 Iopamidol 755 Mg/Ml 500 Ml Multipack Bottle IVPUSH 05/10/21 19:50 100 ml ONETIME ONE Administration Departure - Departure Time of Disposition: 20:50 Disposition: Admitted As Inpatient 68 Clinical Impression: COVID-19, Pulmonary embolism - Discharge Information Sepsis Event Note (ED) - Focused Exam Vital Signs: Vital Signs Temp Pulse Resp BP Pulse Ox 05/10/21 19:18 93 113/52 L 93 L 05/10/21 18:04 98 F 100 22 H 105/57 L 76 L - My Orders Last 24 Hours: My Active Orders 05/10/21 17:58 UA RFX JAMES AND CULT IF INDIC [URIN] Stat Blood Culture x2 Reflex Set [OM.PC] Stat 05/10/21 17:59 Isolation [COMM] Routine 05/10/21 18:48 CULTURE BLOOD [BC] Stat 05/10/21 18:53 CULTURE BLOOD [BC] Stat - Assessment/Plan Last 24 Hours: My Active Orders 05/10/21 17:58 UA RFX JAMES AND CULT IF INDIC [URIN] Stat Blood Culture x2 Reflex Set [OM.PC] Stat 05/10/21 17:59 Isolation [COMM] Routine 05/10/21 18:48 CULTURE BLOOD [BC] Stat 05/10/21 18:53 CULTURE BLOOD [BC] Stat
--- NOTE | 2021-05-10 18:15 | PCM.EKG ---
#1 Interpretation EKG Date: 05/10/21 Time: 18:07 Rhythm: NSR Rate (Beats/Min): 95 [place]: Normal P-Wave: Present QRS: Normal ST-T: Normal QT: Normal Comparison: No Change (04/20/21) EKG Interpretation Comments: Sinus Rhythm with occasional PVC
[2021-05-10 18:44] LABS: BLOOD UREA NITROGEN,BUN 13 mg/dL (7.0-18.0); CARBON DIOXIDE,CO2 43.4 mmol/L (21.0-32.0); CHLORIDE,CL 98 mmol/L (98-107); GLUCOSE RANDOM 106 mg/dL (74-106); POTASSIUM,K 4.7 mmol/L (3.5-5.1); SODIUM,NA 139 mmol/L (136-145)
[2021-05-10 19:17] LABS: CORONAVIRUS COVID-19 NAA POSITIVE (NEGATIVE); INFLUENZA A NAA NEGATIVE (NEGATIVE); INFLUENZA B NAA NEGATIVE (NEGATIVE)
--- NOTE | 2021-05-10 19:20 | CR ---
INDICATION: SOB, HYPOXIA TECHNIQUE: Chest 1 view COMPARISON: 04/20/2021, 02/21/2021 FINDINGS: Cardiac silhouette is enlarged. Chronic perihilar areas of scarring. No dense infiltrate or edema. No effusion or pneumothorax. Deformity of the superolateral left humeral head, new since February. IMPRESSION: No acute cardiopulmonary disease. New deformity of the proximal left humerus, traumatic versus postoperative. Dictated by Michael Holt MD @ 05/10/2021 7:19:48 PM (Electronically Signed)
[2021-05-10] MEDS ORDERED: Iopamidol 755 MG/ML 500 ML Multipack Bottle IVPUSH ONE (19:49)
[2021-05-10] MEDS ORDERED: REMDESIVIR 200 MG in Sodium Chloride 0.9% 250 ML IV ONE (19:52)
[2021-05-10] MEDS ORDERED: Dexamethasone 10 MG/ML SDV IVPUSH ONE (19:52)
--- NOTE | 2021-05-10 20:27 | CT ---
INDICATION: hypoxia with elevated d-dimer COMPARISON: 02/21/2021 TECHNIQUE: CT volumetric acquisition was performed of the thorax during intravenous infusion of 100 cc Isovue 370 nonionic intravenous contrast. Please note that all CT scans at this facility use dose modulation, iterative reconstruction, and/or weight-based dosing when appropriate to reduce radiation dose to as low as reasonably achievable. FINDINGS: Small pulmonary embolism is present within the right upper lobe segmental and subsegmental branches. Right hilar adenopathy again noted with lymph node measuring 2.1 cm. Enlarged right infrahilar lymph nodes/bronchovascular lymph node also present, as before, measuring 1.6 cm. No left-sided PE. RV/LV ratio less than 1. Cardiomegaly. Fatty liver. Gallbladder absent. No pleural effusion or pneumothorax. Consolidative opacities within the lower lobes, right greater than left with adjacent ground-glass opacities on the right. COPD/emphysema. Patchy ill-defined densities within the lingula. Stable pulmonary nodules. IMPRESSION: Pulmonary embolism in the right upper lobe. Consolidative infiltrates in both lower lobes, right greater than left. Patchy ill-defined foci of additional infiltrates within the left upper lobe. Persistent right hilar and right infrahilar/bronchovascular adenopathy. Called to Dr. Hadley at [id number]. Please note that all CT scans at this facility use dose modulation, iterative reconstruction, and/or weight-based dosing when appropriate to reduce radiation dose to as low as reasonably achievable. Dictated by Mihcael Holt MD @ 05/10/2021 8:27:06 PM (Electronically Signed)
[2021-05-10] MEDS ORDERED: Heparin Sodium 5,000 Units/ML Vial IVPUSH ONE (20:33)
[2021-05-10] MEDS ORDERED: Heparin Sodium/0.45% NaCl 500 ML ONE (21:03)
[2021-05-10] MEDS: Heparin Sodium/0.45% NaCl 500 ML IV SCH (21:35)
[2021-05-10] MEDS ORDERED: Albuterol/Ipratropium 4 GM Inhalation Spray INH PRN (23:16)
[2021-05-10] MEDS ORDERED: Benzonatate 100 MG Cap PO PRN (23:16)
[2021-05-11] MEDS ORDERED: Azithromycin 500 MG in Sodium Chloride 0.9% 250 ML IV SCH (06:00)
[2021-05-11] MEDS: Piperacillin/Tazobactam 3.375 GM in Sodium Chloride 0.9% 50 ML IV SCH ×3 (06:29→17:50)
--- NOTE | 2021-05-11 07:14 | PCM.HP.2 ---
H&P History of Present Illness - General Date of Service: 05/11/21 Admit Problem/Dx: Admission Diagnosis/Problem Admission Diagnosis/Problem Hypoxia - History of Present Illness Initial Comments - Free Text/Narative: 55 yo female with pmh of COPD, CHF, and HTN who presents with one week history of cough, and shortness of breath. She was found to be hypoxic and is requring 10 L NC. She is postive for COVID. CT angio reported right upper lobe PE, bibasilar consolidation and left upper patchy infiltrate. - Related Data Allergies/Adverse Reactions: Allergies Allergy/AdvReac Type Severity Reaction Status Date / Time cephalexin [From Keflex] Allergy Hives Verified 05/10/21 22:22 diclofenac Allergy Rash Verified 05/10/21 22:22 oxycodone [From Percocet] Allergy Rash Verified 05/10/21 22:22 Home Medications: Home Meds Albuterol Sulfate 2.5 mg NEB Q4H PRN 12/05/19 [History] Cholecalciferol (Vitamin D3) [Vitamin D3] 25 mcg PO DAILY 12/05/19 [History] Multivitamin [Multi-Vitamin Daily] 1 tab PO DAILY 12/05/19 [History] Albuterol [Ventolin HFA] 2 inh INH Q4H PRN 08/06/20 [History] Furosemide [Lasix] 40 mg PO DAILY 08/06/20 [History] Aspirin [Halfprin] 81 mg PO DAILY 12/04/20 [History] Melatonin 5 mg PO BEDTIME PRN 12/04/20 [History] Albuterol/Ipratropium [DuoNeb 3.0-0.5 MG/3 ML] 3 ml NEB Q4HRRT #3 bottle 04/24/21 [Rx] Fluticasone/Umeclidin/Vilanter [Trelegy Ellipta 100-62.5-25 MCG] 1 puff INH DAILY #1 inhaler 04/24/21 [Rx] lisinopriL [Prinivil] 10 mg PO DAILY #30 tablet 04/24/21 [Rx] Past Medical History HEENT History: Reports: Impaired Vision, Other (See Below) Other HEENT History: sinus issues, wears reading glasses Cardiovascular History: Reports: High Cholesterol, Hypertension Other Cardiovascular History: pt. states having CHF with her COPD Respiratory History: Reports: Bronchitis, Recurrent, COPD, Sleep Apnea Gastrointestinal History: Reports: None Genitourinary History: Reports: None HEAD OF ENGLISH History: Reports: Musculoskeletal History: Reports: Back Pain, Chronic Neurological History: Reports: None Psychiatric History: Reports: None Endocrine/Metabolic History: Reports: Obesity/BMI 30+ Hematologic History: Reports: None Immunologic History: Reports: None Oncologic (Cancer) History: Reports: None Dermatologic History: Reports: None - Infectious Disease History Infectious Disease History: Reports: Chicken Pox - Past Surgical History Head Surgeries/Procedures: Reports: None HEENT Surgical History: Reports: Tonsillectomy Cardiovascular Surgical History: Reports: None Respiratory Surgical History: Reports: None GI Surgical History: Reports: Cholecystectomy Female Surgical History: Reports: Tubal Ligation Endocrine Surgical History: Reports: None Musculoskeletal Surgical History: Reports: Other (See Below) Other Musculoskeletal Surgeries/Procedures:: Left arm surgery Social & Family History - Family History Family Medical History: No Pertinent Family History - Tobacco Use Tobacco Use Status *Q: Former Tobacco User Years of Tobacco use: 30 Used Tobacco, but Quit: Yes Month/Year Tobacco Last Used: 12/2020 Second Hand Smoke Exposure: No - Caffeine Use Caffeine Use: Reports: None Caffeine Use Comment: seldom drinks energy drinks - Recreational Drug Use Recreational Drug Use: No - Living Situation & Occupation Occupation: Employed H&P Review of Systems - Review of Systems: Review Of Systems: Comprehensive ROS is negative, except as noted in HPI. Exam - Exam Exam: See Below - Vital Signs Vital Signs: Last Vital Signs Temp 35.8 C L 05/11/21 04:00 Pulse 95 05/11/21 04:00 Resp 18 05/11/21 04:00 BP 99/51 L 05/11/21 04:00 Pulse Ox 94 L 05/11/21 04:00 Weight: 101.968 kg - Exam General: Alert, Oriented HEENT: Mucosa Moist & [place] Lungs: Clear to Auscultation, Normal Respiratory Effort Cardiovascular: Regular Rate, Regular Rhythm GI/Abdominal Exam: Normal Bowel Sounds, Soft, Non-Tender Extremities: Non-Tender, No Pedal Edema Skin: Warm, Dry, Intact - Patient Data Lab Results Last 24 hrs: Laboratory Results - last 24 hr 05/10/21 05/10/21 05/10/21 Range/Units 17:55 18:16 18:16 WBC 3.83 L (4.0-11.0) K/uL RBC 4.53 (4.30-5.90) M/uL Hgb 14.1 (12.0-16.0) g/dL Hct 45.1 (36.0-46.0) % MCV 99.6 H (80.0-98.0) fL MCH 31.1 (27.0-32.0) pg MCHC 31.3 (31.0-37.0) g/dL RDW Std Deviation 53.3 (28.0-62.0) fl RDW Coeff of Vera 15 (11.0-15.0) % Plt Count 105 L (150-400) K/uL MPV 11.30 (7.40-12.00) fL Neut % (Auto) 68.4 (48.0-80.0) % Lymph % (Auto) 20.6 (16.0-40.0) % [place] % (Auto) 10.7 (0.0-15.0) % Eos % (Auto) 0.0 (0.0-7.0) % Baso % (Auto) 0.3 (0.0-1.5) % Neut # (Auto) 2.6 (1.4-5.7) K/uL Lymph # (Auto) 0.8 (0.6-2.4) K/uL [place] # (Auto) 0.4 (0.0-0.8) K/uL Eos # (Auto) 0.0 (0.0-0.7) K/uL Baso # (Auto) 0.0 (0.0-0.1) K/uL Nucleated RBC % 0.0 /100WBC Nucleated RBCs # 0 K/uL INR APTT (18.6-31.3) SEC D-Dimer, Quantitative 1.82 H (0.0-0.50) mg/L FEU Sodium (136-145) mmol/L Potassium (3.5-5.1) mmol/L Chloride (98-107) mmol/L Carbon Dioxide (21.0-32.0) mmol/L BUN (7.0-18.0) mg/dL Creatinine (0.6-1.0) mg/dL Est Cr Clr Drug Dosing Estimated GFR (MDRD) ml/min Glucose (74-106) mg/dL Lactic Acid (0.4-2.0) mmol/L Calcium (8.5-10.1) mg/dL Magnesium (1.8-2.4) mg/dL Total Bilirubin (0.2-1.0) mg/dL Direct Bilirubin (0.0-0.5) mg/dL AST (15-37) IU/L ALT (14-63) IU/L Alkaline Phosphatase (46-116) U/L Troponin I (0.000-0.056) ng/mL B-Natriuretic Peptide (<100) PG/ML Total Protein (6.4-8.2) g/dL Albumin (3.4-5.0) g/dL Globulin (2.6-4.0) g/dL Albumin/Globulin Ratio (0.9-1.6) Urine Color Urine Appearance Urine pH (5.0-8.0) Ur Specific [place] (1.001-1.035) Urine Protein (NEGATIVE) mg/dL Urine Glucose (UA) (NEGATIVE) mg/dL Urine Ketones (NEGATIVE) mg/dL Urine Occult Blood (NEGATIVE) Urine Nitrite (NEGATIVE) Urine Bilirubin (NEGATIVE) Urine Urobilinogen (<2.0) EU/dL Ur Leukocyte Esterase (NEGATIVE) Urine RBC (0-2/HPF) Urine WBC (0-5/HPF) Ur Epithelial Cells (NONE-FEW) Urine Bacteria (NEGATIVE) Influenza Type A RNA NEGATIVE (NEGATIVE) Influenza Type B RNA NEGATIVE (NEGATIVE) SARS-CoV-2 RNA (RUBIN) POSITIVE H (NEGATIVE) 05/10/21 05/10/21 05/10/21 Range/Units 18:16 18:16 18:16 WBC (4.0-11.0) K/uL RBC (4.30-5.90) M/uL Hgb (12.0-16.0) g/dL Hct (36.0-46.0) % MCV (80.0-98.0) fL MCH (27.0-32.0) pg MCHC (31.0-37.0) g/dL RDW Std Deviation (28.0-62.0) fl RDW Coeff of Vera (11.0-15.0) % Plt Count (150-400) K/uL MPV (7.40-12.00) fL Neut % (Auto) (48.0-80.0) % Lymph % (Auto) (16.0-40.0) % [place] % (Auto) (0.0-15.0) % Eos % (Auto) (0.0-7.0) % Baso % (Auto) (0.0-1.5) % Neut # (Auto) (1.4-5.7) K/uL Lymph # (Auto) (0.6-2.4) K/uL [place] # (Auto) (0.0-0.8) K/uL Eos # (Auto) (0.0-0.7) K/uL Baso # (Auto) (0.0-0.1) K/uL Nucleated RBC % /100WBC Nucleated RBCs # K/uL INR APTT (18.6-31.3) SEC D-Dimer, Quantitative (0.0-0.50) mg/L FEU Sodium 139 (136-145) mmol/L Potassium 4.7 (3.5-5.1) mmol/L Chloride 98 (98-107) mmol/L Carbon Dioxide 43.4 H (21.0-32.0) mmol/L BUN 13 (7.0-18.0) mg/dL Creatinine 0.7 (0.6-1.0) mg/dL Est Cr Clr Drug Dosing TNP Estimated GFR (MDRD) > 60.0 ml/min Glucose 106 (74-106) mg/dL Lactic Acid (0.4-2.0) mmol/L Calcium 8.3 L (8.5-10.1) mg/dL Magnesium 1.8 (1.8-2.4) mg/dL Total Bilirubin 0.2 (0.2-1.0) mg/dL Direct Bilirubin 0.10 (0.0-0.5) mg/dL AST 27 (15-37) IU/L ALT 28 (14-63) IU/L Alkaline Phosphatase 85 (46-116) U/L Troponin I < 0.050 (0.000-0.056) ng/mL B-Natriuretic Peptide 19 (<100) PG/ML Total Protein 6.1 L (6.4-8.2) g/dL Albumin 2.3 L (3.4-5.0) g/dL Globulin 3.8 (2.6-4.0) g/dL Albumin/Globulin Ratio 0.6 L (0.9-1.6) Urine Color Urine Appearance Urine pH (5.0-8.0) Ur Specific [place] (1.001-1.035) Urine Protein (NEGATIVE) mg/dL Urine Glucose (UA) (NEGATIVE) mg/dL Urine Ketones (NEGATIVE) mg/dL Urine Occult Blood (NEGATIVE) Urine Nitrite (NEGATIVE) Urine Bilirubin (NEGATIVE) Urine Urobilinogen (<2.0) EU/dL Ur Leukocyte Esterase (NEGATIVE) Urine RBC (0-2/HPF) Urine WBC (0-5/HPF) Ur Epithelial Cells (NONE-FEW) Urine Bacteria (NEGATIVE) Influenza Type A RNA (NEGATIVE) Influenza Type B RNA (NEGATIVE) SARS-CoV-2 RNA (RUBIN) (NEGATIVE) 05/10/21 05/10/21 05/10/21 Range/Units 18:16 18:16 18:53 WBC (4.0-11.0) K/uL RBC (4.30-5.90) M/uL Hgb (12.0-16.0) g/dL Hct (36.0-46.0) % MCV (80.0-98.0) fL MCH (27.0-32.0) pg MCHC (31.0-37.0) g/dL RDW Std Deviation (28.0-62.0) fl RDW Coeff of Vera (11.0-15.0) % Plt Count (150-400) K/uL MPV (7.40-12.00) fL Neut % (Auto) (48.0-80.0) % Lymph % (Auto) (16.0-40.0) % [place] % (Auto) (0.0-15.0) % Eos % (Auto) (0.0-7.0) % Baso % (Auto) (0.0-1.5) % Neut # (Auto) (1.4-5.7) K/uL Lymph # (Auto) (0.6-2.4) K/uL [place] # (Auto) (0.0-0.8) K/uL Eos # (Auto) (0.0-0.7) K/uL Baso # (Auto) (0.0-0.1) K/uL Nucleated RBC % /100WBC Nucleated RBCs # K/uL INR 0.98 APTT 27.2 (18.6-31.3) SEC D-Dimer, Quantitative (0.0-0.50) mg/L FEU Sodium (136-145) mmol/L Potassium (3.5-5.1) mmol/L Chloride (98-107) mmol/L Carbon Dioxide (21.0-32.0) mmol/L BUN (7.0-18.0) mg/dL Creatinine (0.6-1.0) mg/dL Est Cr Clr Drug Dosing Estimated GFR (MDRD) ml/min Glucose (74-106) mg/dL Lactic Acid 0.5 (0.4-2.0) mmol/L Calcium (8.5-10.1) mg/dL Magnesium (1.8-2.4) mg/dL Total Bilirubin (0.2-1.0) mg/dL Direct Bilirubin (0.0-0.5) mg/dL AST (15-37) IU/L ALT (14-63) IU/L Alkaline Phosphatase (46-116) U/L Troponin I (0.000-0.056) ng/mL B-Natriuretic Peptide (<100) PG/ML Total Protein (6.4-8.2) g/dL Albumin (3.4-5.0) g/dL Globulin (2.6-4.0) g/dL Albumin/Globulin Ratio (0.9-1.6) Urine Color Urine Appearance Urine pH (5.0-8.0) Ur Specific [place] (1.001-1.035) Urine Protein (NEGATIVE) mg/dL Urine Glucose (UA) (NEGATIVE) mg/dL Urine Ketones (NEGATIVE) mg/dL Urine Occult Blood (NEGATIVE) Urine Nitrite (NEGATIVE) Urine Bilirubin (NEGATIVE) Urine Urobilinogen (<2.0) EU/dL Ur Leukocyte Esterase (NEGATIVE) Urine RBC (0-2/HPF) Urine WBC (0-5/HPF) Ur Epithelial Cells (NONE-FEW) Urine Bacteria (NEGATIVE) Influenza Type A RNA (NEGATIVE) Influenza Type B RNA (NEGATIVE) SARS-CoV-2 RNA (RUBIN) (NEGATIVE) 05/10/21 05/11/21 Range/Units 20:50 00:20 WBC (4.0-11.0) K/uL RBC (4.30-5.90) M/uL Hgb (12.0-16.0) g/dL Hct (36.0-46.0) % MCV (80.0-98.0) fL MCH (27.0-32.0) pg MCHC (31.0-37.0) g/dL RDW Std Deviation (28.0-62.0) fl RDW Coeff of [place] (11.0-15.0) % Plt Count (150-400) K/uL MPV (7.40-12.00) fL Neut % (Auto) (48.0-80.0) % Lymph % (Auto) (16.0-40.0) % [place] % (Auto) (0.0-15.0) % Eos % (Auto) (0.0-7.0) % Baso % (Auto) (0.0-1.5) % Neut # (Auto) (1.4-5.7) K/uL Lymph # (Auto) (0.6-2.4) K/uL [place] # (Auto) (0.0-0.8) K/uL Eos # (Auto) (0.0-0.7) K/uL Baso # (Auto) (0.0-0.1) K/uL Nucleated RBC % /100WBC Nucleated RBCs # K/uL INR APTT 49.9 H (18.6-31.3) SEC D-Dimer, Quantitative (0.0-0.50) mg/L FEU Sodium (136-145) mmol/L Potassium (3.5-5.1) mmol/L Chloride (98-107) mmol/L Carbon Dioxide (21.0-32.0) mmol/L BUN (7.0-18.0) mg/dL Creatinine (0.6-1.0) mg/dL Est Cr Clr Drug Dosing Estimated GFR (MDRD) ml/min Glucose (74-106) mg/dL Lactic Acid (0.4-2.0) mmol/L Calcium (8.5-10.1) mg/dL Magnesium (1.8-2.4) mg/dL Total Bilirubin (0.2-1.0) mg/dL Direct Bilirubin (0.0-0.5) mg/dL AST (15-37) IU/L ALT (14-63) IU/L Alkaline Phosphatase (46-116) U/L Troponin I (0.000-0.056) ng/mL B-Natriuretic Peptide (<100) PG/ML Total Protein (6.4-8.2) g/dL Albumin (3.4-5.0) g/dL Globulin (2.6-4.0) g/dL Albumin/Globulin Ratio (0.9-1.6) Urine Color YELLOW Urine Appearance CLEAR Urine pH 6.0 (5.0-8.0) Ur Specific [place] 1.025 (1.001-1.035) Urine Protein TRACE H (NEGATIVE) mg/dL Urine Glucose (UA) NEGATIVE (NEGATIVE) mg/dL Urine Ketones NEGATIVE (NEGATIVE) mg/dL Urine Occult Blood NEGATIVE (NEGATIVE) Urine Nitrite NEGATIVE (NEGATIVE) Urine Bilirubin NEGATIVE (NEGATIVE) Urine Urobilinogen 0.2 (<2.0) EU/dL Ur Leukocyte Esterase NEGATIVE (NEGATIVE) Urine RBC 0-1 (0-2/HPF) Urine WBC 0-1 (0-5/HPF) Ur Epithelial Cells RARE (NONE-FEW) Urine Bacteria FEW (NEGATIVE) Influenza Type A RNA (NEGATIVE) Influenza Type B RNA (NEGATIVE) SARS-CoV-2 RNA (RUBIN) (NEGATIVE) Result Diagrams: 05/10/21 18:16 05/10/21 18:16 Twan Results Last 24 hrs: Microbiology 05/10/21 18:48 Anaerobic Blood Culture - Final Blood - Venous Sepsis Event Note - Evaluation Sepsis Screening Result: Sepsis Risk - Focused Exam Vital Signs: Vital Signs Temp Pulse Resp BP Pulse Ox 05/11/21 04:00 35.8 C L 95 18 99/51 L 94 L 05/11/21 00:00 36.2 C 101 H 20 91 L 05/10/21 22:19 36.7 C 101 H 18 94/56 L 89 L 05/10/21 21:45 92 20 107/58 L 94 L 05/10/21 21:20 95 100/55 L 93 L 05/10/21 20:20 91 20 100/55 L 96 05/10/21 19:18 93 113/52 L 93 L - Problem List (1) COVID-19 SNOMED Code(s): 499409778 ICD Code: U07.1 - COVID-19 Status: Acute Current Visit: Yes (2) Pulmonary embolism SNOMED Code(s): 44432399 ICD Code: I26.99 - OTHER PULMONARY EMBOLISM WITHOUT ACUTE COR PULMONALE Status: Acute Current Visit: Yes (3) Respiratory failure with hypoxia SNOMED Code(s): 67372803313522779 ICD Code: J96.91 - RESPIRATORY FAILURE, UNSPECIFIED WITH HYPOXIA Status: Acute Current Visit: No Problem List Initiated/Reviewed/Updated: Yes Orders Last 24hrs: Active Orders 24 hr Category Date Time Status Admission Status [Patient Status] [ADT] Stat ADT 05/10/21 19:52 Active Cardiac Monitoring [RC] . DIRECTED Care 05/10/21 19:52 Active RT Post Treatment Assessment [RC] Click to Edit Care 05/10/21 23:16 Active RT Pre-Treatment Assessment [RC] Click to Edit Care 05/10/21 23:16 Active Telemetry Monitoring [Cardiac Monitoring] [RC] Q8H Care 05/10/21 23:15 Active Regular Diet [DIET] Diet 05/11/21 Breakfast Active CBC WITH AUTO DIFF [HEME] AM Lab 05/13/21 05:11 Ordered CBC WITH AUTO DIFF [HEME] AM Lab 05/14/21 05:11 Ordered CBC WITH AUTO DIFF [HEME] Routine Lab 05/11/21 05:00 Ordered CMP [COMPREHENSIVE METABOLIC PN,CMP] [CHEM] Routine Lab 05/11/21 05:00 Ordered COMPREHENSIVE METABOLIC PN,CMP [CHEM] AM Lab 05/13/21 05:11 Ordered COMPREHENSIVE METABOLIC PN,CMP [CHEM] AM Lab 05/14/21 05:11 Ordered CULTURE BLOOD [BC] Stat Lab 05/10/21 18:48 Results CULTURE BLOOD [BC] Stat Lab 05/10/21 18:53 Received PTT,PARTIAL THROMBOPLSTIN TIME [COAG] Q6H Lab 05/11/21 06:00 Ordered PTT,PARTIAL THROMBOPLSTIN TIME [COAG] Q6H Lab 05/11/21 12:00 Ordered PTT,PARTIAL THROMBOPLSTIN TIME [COAG] Q6H Lab 05/11/21 18:00 Ordered Albuterol/Ipratropium [Combivent Respimat] Med 05/10/21 23:16 Active 1 gm INH Q6H PRN Azithromycin [Zithromax] 500 mg Med 05/11/21 07:00 Active Sodium Chloride 0.9% [Normal Saline AdvBag] 250 ml IV DAILY Benzonatate [Tessalon Perles] Med 05/10/21 23:16 Active 100 mg PO Q6H PRN Heparin Sodium/0.45% NaCl [Heparin 25,000 Units in 1/2 Med 05/10/21 20:45 Active NS 500 ML] 500 ml IV TITRATE Piperacillin/Tazobactam [Piperacil-Tazobact] 3.375 gm Med 05/11/21 06:00 Active Sodium Chloride 0.9% [Normal Saline AdvBag] 50 ml IV Q6H Remdesivir 100 mg Med 05/11/21 20:00 Active Sodium Chloride 0.9% [Normal Saline AdvBag] 100 ml IV Q24H dexAMETHasone Med 05/11/21 20:00 Active 6 mg PO Q24H Blood Culture x2 Reflex Set [OM.PC] Stat Oth 05/10/21 17:58 Ordered Isolation [COMM] Routine Oth 05/10/21 17:59 Active Medication Orders Albuterol/Ipratropium (Albuterol/Ipratropium 4 Gm Inhalation [place]) 1 gm INH Q6H PRN PRN Reason: Shortness of Breath Benzonatate (Benzonatate 100 Mg Cap) 100 mg PO Q6H PRN PRN Reason: Cough Dexamethasone (Dexamethasone 4 Mg Tab) 6 mg PO Q24H KOLE Heparin Sodium/Sodium Chloride (Heparin 25,000 Units In 1/2 Ns 500 Ml) 500 mls @ 26.082 mls/hr IV TITRATE KOLE; Protocol Last Admin: 05/10/21 21:35 Dose: 12.5 units/kg/hr, 26.082 mls/hr Documented by: SARA Cosigned by: MONTSERRAT Piperacillin Sod/Tazobactam (Sod 3.375 gm/ Sodium Chloride) 50 mls @ 100 mls/hr IV Q6H KOLE Last Admin: 05/11/21 06:29 Dose: 100 mls/hr Documented by: KIRAN Azithromycin 500 mg/ Sodium (Chloride) 250 mls @ 250 mls/hr IV DAILY KOLE Remdesivir 100 mg/ Sodium (Chloride) 100 mls @ 100 mls/hr IV Q24H KOLE Stop: 05/14/21 20:59 Assessment/Plan Comment:: 55 yo female admitted for COVID-19 pneumonia, acute respiratory failure and PE. Hypoxia: on 10 L NC COVID: treating with remdesivir and deamethasone PE: on heparin drip
[2021-05-11] MEDS: Azithromycin 500 MG in Sodium Chloride 0.9% 250 ML IV SCH (07:37)
[2021-05-11 08:14] LABS: BLOOD UREA NITROGEN,BUN 18 mg/dL (7.0-18.0); CARBON DIOXIDE,CO2 40.1 mmol/L (21.0-32.0); CHLORIDE,CL 99 mmol/L (98-107); GLUCOSE RANDOM 143 mg/dL (74-106); POTASSIUM,K 5.2 mmol/L (3.5-5.1); SODIUM,NA 139 mmol/L (136-145)
[2021-05-11] MEDS: Heparin Sodium/0.45% NaCl 500 ML IV SCH (17:51)
[2021-05-11] MEDS ORDERED: Heparin Sodium 5,000 Units/ML Vial IVPUSH ONE (19:32)
[2021-05-11] MEDS: REMDESIVIR 100 MG in Sodium Chloride 0.9% 100 ML IV SCH (20:09)
[2021-05-11] MEDS: Dexamethasone 4 MG Tab PO SCH (20:09)
[2021-05-12] MEDS: Piperacillin/Tazobactam 3.375 GM in Sodium Chloride 0.9% 50 ML IV SCH ×5 (00:31→23:23)
[2021-05-12] MEDS ORDERED: Heparin Sodium 5,000 Units/ML Vial IVPUSH ONE (07:42)
[2021-05-12] MEDS: Azithromycin 500 MG in Sodium Chloride 0.9% 250 ML IV SCH (08:32)
--- NOTE | 2021-05-12 10:40 | PCM.PN ---
- General Info Date of Service: 05/12/21 - Review of Systems Systems Review Comment:: shortness of breath has improving, still has fatigue - Patient Data Vitals - Most Recent: Last Vital Signs Temp 36.3 C 05/12/21 08:00 Pulse 82 05/12/21 08:00 Resp 20 05/12/21 08:00 BP 110/65 05/12/21 08:00 Pulse Ox 90 L 05/12/21 08:00 Weight - Most Recent: 101.968 kg I&O - Last 24 Hours: Intake & Output 05/11/21 05/12/21 05/12/21 22:59 06:59 14:59 Intake Total 306 550 Output Total 1000 900 Balance -694 -350 Lab Results Last 24 Hours: Laboratory Results - last 24 hr 05/11/21 05/11/21 05/12/21 Range/Units 12:12 18:25 00:32 APTT 61.4 H 41.6 H 56.9 H (18.6-31.3) SEC 05/12/21 Range/Units 06:07 APTT 41.9 H (18.6-31.3) SEC Twan Results Last 24 Hours: Microbiology 05/10/21 18:53 Aerobic Blood Culture - Preliminary Blood - Venous - Lab Draw NO GROWTH AFTER 1 DAY Anaerobic Blood Culture - Preliminary NO GROWTH AFTER 1 DAY 05/10/21 18:48 Aerobic Blood Culture - Preliminary Blood - Venous NO GROWTH AFTER 1 DAY Anaerobic Blood Culture - Final Med Orders - Current: Current Medications Albuterol/Ipratropium (Albuterol/Ipratropium 4 Gm Inhalation [place]) 1 gm INH Q6H PRN PRN Reason: Shortness of Breath Benzonatate (Benzonatate 100 Mg Cap) 100 mg PO Q6H PRN PRN Reason: Cough Dexamethasone (Dexamethasone 4 Mg Tab) 6 mg PO Q24H KOLE Last Admin: 05/11/21 20:09 Dose: 6 mg Documented by: Heparin Sodium/Sodium Chloride (Heparin 25,000 Units In 1/2 Ns 500 Ml) 500 mls @ 26 mls/hr IV TITRATE KOLE; Protocol Last Titration: 05/11/21 20:05 Dose: 14.5 units/kg/hr, 29.571 mls/hr Documented by: Piperacillin Sod/Tazobactam (Sod 3.375 gm/ Sodium Chloride) 50 mls @ 100 mls/hr IV Q6H KOLE Last Admin: 05/12/21 06:07 Dose: 100 mls/hr Documented by: Azithromycin 500 mg/ Sodium (Chloride) 250 mls @ 250 mls/hr IV DAILY KOLE Last Admin: 05/12/21 08:32 Dose: 250 mls/hr Documented by: Remdesivir 100 mg/ Sodium (Chloride) 100 mls @ 100 mls/hr IV Q24H KOLE Stop: 05/14/21 20:59 Last Admin: 05/11/21 20:09 Dose: 100 mls/hr Documented by: Discontinued Medications Dexamethasone (Dexamethasone 10 Mg/Ml Sdv) 10 mg IVPUSH ONETIME ONE Stop: 05/10/21 19:53 Last Admin: 05/10/21 20:13 Dose: 10 mg Documented by: Heparin Sodium (Porcine) (Heparin Sodium 5,000 Units/Ml Vial) 5,000 units IVPUSH ONETIME ONE Stop: 05/10/21 20:34 Last Admin: 05/10/21 21:35 Dose: 5,000 units Documented by: Heparin Sodium (Porcine) (Heparin Sodium 5,000 Units/Ml Vial) 1,500 units IVPUSH .BOLUS ONE Stop: 05/11/21 19:33 Last Admin: 05/11/21 20:08 Dose: 1,500 units Documented by: Heparin Sodium (Porcine) (Heparin Sodium 5,000 Units/Ml Vial) 1,500 units IVPUSH .BOLUS ONE Stop: 05/12/21 07:43 Last Admin: 05/12/21 08:32 Dose: 1,500 units Documented by: Remdesivir 200 mg/ Sodium (Chloride) 250 mls @ 250 mls/hr IV ONETIME ONE Stop: 05/10/21 19:53 Last Admin: 05/10/21 20:14 Dose: 250 mls/hr Documented by: Heparin Sodium/Sodium Chloride (Heparin 25,000 Units In 1/2 Ns 500 Ml) Confirm Administered Dose 500 mls @ as directed .ROUTE .STK-MED ONE Stop: 05/10/21 21:04 Last Admin: 05/10/21 21:33 Dose: Not Given Documented by: Azithromycin 500 mg/ Sodium (Chloride) 250 mls @ 250 mls/hr IV DAILY [facility] Last Admin: 05/11/21 07:59 Dose: Not Given Documented by: Iopamidol (Iopamidol 755 Mg/Ml 500 Ml Multipack Bottle) 100 ml IVPUSH ONETIME ONE Stop: 05/10/21 19:50 Last Admin: 05/10/21 19:53 Dose: 100 ml Documented by: - Exam General: Alert, Oriented Neck: Supple Lungs: Normal Respiratory Effort, Wheezing Cardiovascular: Regular Rate, Regular Rhythm GI/Abdominal Exam: Soft, Non-Tender Extremities: Non-Tender, No Pedal Edema Skin: Warm, Dry, Intact Neurological: No New Focal Deficit - Patient Data Lab Results Last 24 hrs: Laboratory Results - last 24 hr 05/11/21 05/11/21 05/12/21 Range/Units 12:12 18:25 00:32 APTT 61.4 H 41.6 H 56.9 H (18.6-31.3) SEC 05/12/21 Range/Units 06:07 APTT 41.9 H (18.6-31.3) SEC Result Diagrams: 05/11/21 06:25 05/11/21 06:25 Twan Results Last 24 hrs: Microbiology 05/10/21 18:53 Aerobic Blood Culture - Preliminary Blood - Venous - Lab Draw NO GROWTH AFTER 1 DAY Anaerobic Blood Culture - Preliminary NO GROWTH AFTER 1 DAY 05/10/21 18:48 Aerobic Blood Culture - Preliminary Blood - Venous NO GROWTH AFTER 1 DAY Anaerobic Blood Culture - Final Sepsis Event Note - Evaluation Sepsis Screening Result: Sepsis Risk - Focused Exam Vital Signs: Vital Signs Temp Pulse Resp BP Pulse Ox 05/12/21 08:00 36.3 C 82 20 110/65 90 L 05/12/21 04:00 36.2 C 85 22 H 108/64 87 L 05/12/21 00:38 35.9 C L 79 20 112/63 87 L - Problem List & Annotations (1) COVID-19 SNOMED Code(s): 251860907 Code(s): U07.1 - COVID-19 Status: Acute Current Visit: Yes (2) Pulmonary embolism SNOMED Code(s): 35054400 Code(s): I26.99 - OTHER PULMONARY EMBOLISM WITHOUT ACUTE COR PULMONALE Status: Acute Current Visit: Yes (3) Respiratory failure with hypoxia SNOMED Code(s): 89369100948119540 Code(s): J96.91 - RESPIRATORY FAILURE, UNSPECIFIED WITH HYPOXIA Status: Acute Current Visit: No - Problem List Review Problem List Initiated/Reviewed/Updated: Yes - My Orders Last 24 Hours: My Active Orders 05/11/21 20:00 Remdesivir 100 mg Sodium Chloride 0.9% [Normal Saline AdvBag] 100 ml IV Q24H dexAMETHasone 6 mg PO Q24H 05/12/21 12:00 aPTT [PTT,PARTIAL THROMBOPLSTIN TIME] [COAG] Q6H 05/13/21 05:11 CBC WITH AUTO DIFF [HEME] AM COMPREHENSIVE METABOLIC PN,CMP [CHEM] AM 05/14/21 05:11 CBC WITH AUTO DIFF [HEME] AM COMPREHENSIVE METABOLIC PN,CMP [CHEM] AM - Plan Plan:: 55 yo female admitted for COVID-19 pneumonia, acute respiratory failure and PE. Hypoxia: on 6 L NC COVID: treating with remdesivir and deamethasone, also on azithromycin and Zosyn PE: on heparin drip
[2021-05-12] MEDS: Heparin Sodium/0.45% NaCl 500 ML IV SCH (12:01)
[2021-05-12] MEDS ORDERED: Albuterol 0.083% 2.5 MG/3 ML Neb Soln NEB PRN (16:05)
[2021-05-12] MEDS ORDERED: Albuterol 8 GM Inhaler INH PRN (16:05)
[2021-05-12] MEDS: Furosemide 40 MG Tab PO SCH (17:10)
[2021-05-12] MEDS: Multivitamin Tab PO SCH (17:11)
[2021-05-12] MEDS: Albuterol/Ipratropium 3.0-0.5 MG/3 ML Neb Soln NEB SCH ×2 (17:11→23:23)
[2021-05-12] MEDS: Fluticasone/Umeclidin/Vilanter [Trelegy Ellipta 100-62.5-25 Mcg] INH SCH (17:11)
[2021-05-12] MEDS: Lisinopril 10 MG Tab PO SCH (17:11)
[2021-05-12] MEDS: Dexamethasone 4 MG Tab PO SCH (20:34)
[2021-05-12] MEDS: REMDESIVIR 100 MG in Sodium Chloride 0.9% 100 ML IV SCH (20:36)
[2021-05-12] MEDS ORDERED: Melatonin 3 MG Tab PO PRN (21:00)
[2021-05-13] MEDS ORDERED: VANCOmycin 2 GM/400 ML 2 GM in Premix Bag 1 BAG IV ONE (02:00)
[2021-05-13] MEDS: Albuterol/Ipratropium 3.0-0.5 MG/3 ML Neb Soln NEB SCH ×6 (02:54→21:35)
[2021-05-13] MEDS: Heparin Sodium/0.45% NaCl 500 ML IV SCH ×2 (05:57→23:37)
[2021-05-13] MEDS: Piperacillin/Tazobactam 3.375 GM in Sodium Chloride 0.9% 50 ML IV SCH ×4 (06:10→23:37)
[2021-05-13 07:35] LABS: BLOOD UREA NITROGEN,BUN 13 mg/dL (7.0-18.0); CHLORIDE,CL 95 mmol/L (98-107); GLUCOSE RANDOM 126 mg/dL (74-106); POTASSIUM,K 4.3 mmol/L (3.5-5.1); SODIUM,NA 139 mmol/L (136-145)
[2021-05-13] MEDS ORDERED: Heparin Sodium 5,000 Units/ML Vial IVPUSH ONE (07:43)
[2021-05-13 07:52] LABS: CARBON DIOXIDE,CO2 44.9 mmol/L (21.0-32.0)
[2021-05-13] MEDS: Lisinopril 10 MG Tab PO SCH (08:26)
[2021-05-13] MEDS: Multivitamin Tab PO SCH (08:26)
[2021-05-13] MEDS: Fluticasone/Umeclidin/Vilanter [Trelegy Ellipta 100-62.5-25 Mcg] INH SCH (08:27)
[2021-05-13] MEDS: Azithromycin 500 MG in Sodium Chloride 0.9% 250 ML IV SCH (08:27)
[2021-05-13] MEDS: Furosemide 40 MG Tab PO SCH (08:47)
[2021-05-13] MEDS ORDERED: Cholecalciferol (Vitamin D3) 25 MCG Tab PO SCH (09:00)
[2021-05-13] MEDS: VANCOmycin 1.5 GM/300 ML 300 ML IV SCH ×2 (10:40→18:47)
--- NOTE | 2021-05-13 11:45 | PCM.PN ---
- General Info Date of Service: 05/13/21 - Review of Systems Systems Review Comment:: shortness of breath is improving but not back to her baseline - Patient Data Vitals - Most Recent: Last Vital Signs Temp 36.2 C 05/13/21 08:00 Pulse 77 05/13/21 08:00 Resp 20 05/13/21 08:00 BP 115/66 05/13/21 08:26 Pulse Ox 90 L 05/13/21 08:00 Weight - Most Recent: 101.968 kg I&O - Last 24 Hours: Intake & Output 05/12/21 05/13/21 05/13/21 22:59 06:59 14:59 Intake Total 680 970 Output Total 600 1800 Balance 80 -830 Lab Results Last 24 Hours: Laboratory Results - last 24 hr 05/12/21 05/12/21 05/13/21 Range/Units 12:03 18:04 00:45 WBC (4.0-11.0) K/uL RBC (4.30-5.90) M/uL Hgb (12.0-16.0) g/dL Hct (36.0-46.0) % MCV (80.0-98.0) fL MCH (27.0-32.0) pg MCHC (31.0-37.0) g/dL RDW Std Deviation (28.0-62.0) fl RDW Coeff of Vera (11.0-15.0) % Plt Count (150-400) K/uL MPV (7.40-12.00) fL Neut % (Auto) (48.0-80.0) % Lymph % (Auto) (16.0-40.0) % [place] % (Auto) (0.0-15.0) % Eos % (Auto) (0.0-7.0) % Baso % (Auto) (0.0-1.5) % Neut # (Auto) (1.4-5.7) K/uL Lymph # (Auto) (0.6-2.4) K/uL [place] # (Auto) (0.0-0.8) K/uL Eos # (Auto) (0.0-0.7) K/uL Baso # (Auto) (0.0-0.1) K/uL Nucleated RBC % /100WBC Nucleated RBCs # K/uL APTT 59.6 H 58.1 H 58.5 H (18.6-31.3) SEC Sodium (136-145) mmol/L Potassium (3.5-5.1) mmol/L Chloride (98-107) mmol/L Carbon Dioxide (21.0-32.0) mmol/L BUN (7.0-18.0) mg/dL Creatinine (0.6-1.0) mg/dL Est Cr Clr Drug Dosing mL/min Estimated GFR (MDRD) ml/min Glucose (74-106) mg/dL Calcium (8.5-10.1) mg/dL Total Bilirubin (0.2-1.0) mg/dL AST (15-37) IU/L ALT (14-63) IU/L Alkaline Phosphatase (46-116) U/L Total Protein (6.4-8.2) g/dL Albumin (3.4-5.0) g/dL Globulin (2.6-4.0) g/dL Albumin/Globulin Ratio (0.9-1.6) 05/13/21 05/13/21 05/13/21 Range/Units 05:21 05:21 05:21 WBC 3.06 L (4.0-11.0) K/uL RBC 4.53 (4.30-5.90) M/uL Hgb 13.8 (12.0-16.0) g/dL Hct 44.9 (36.0-46.0) % MCV 99.1 H (80.0-98.0) fL MCH 30.5 (27.0-32.0) pg MCHC 30.7 L (31.0-37.0) g/dL RDW Std Deviation 49.8 (28.0-62.0) fl RDW Coeff of Vera 14 (11.0-15.0) % Plt Count 155 (150-400) K/uL MPV 11.90 (7.40-12.00) fL Neut % (Auto) 76.1 (48.0-80.0) % Lymph % (Auto) 14.4 L (16.0-40.0) % [place] % (Auto) 9.5 (0.0-15.0) % Eos % (Auto) 0.0 (0.0-7.0) % Baso % (Auto) 0.0 (0.0-1.5) % Neut # (Auto) 2.3 (1.4-5.7) K/uL Lymph # (Auto) 0.4 L (0.6-2.4) K/uL [place] # (Auto) 0.3 (0.0-0.8) K/uL Eos # (Auto) 0.0 (0.0-0.7) K/uL Baso # (Auto) 0.0 (0.0-0.1) K/uL Nucleated RBC % 0.0 /100WBC Nucleated RBCs # 0 K/uL APTT 31.4 H (18.6-31.3) SEC Sodium 139 (136-145) mmol/L Potassium 4.3 (3.5-5.1) mmol/L Chloride 95 L (98-107) mmol/L Carbon Dioxide 44.9 H (21.0-32.0) mmol/L BUN 13 (7.0-18.0) mg/dL Creatinine 0.5 L (0.6-1.0) mg/dL Est Cr Clr Drug Dosing 121.81 mL/min Estimated GFR (MDRD) > 60.0 ml/min Glucose 126 H (74-106) mg/dL Calcium 8.7 (8.5-10.1) mg/dL Total Bilirubin 0.3 (0.2-1.0) mg/dL AST 30 (15-37) IU/L ALT 29 (14-63) IU/L Alkaline Phosphatase 67 (46-116) U/L Total Protein 5.9 L (6.4-8.2) g/dL Albumin 2.2 L (3.4-5.0) g/dL Globulin 3.7 (2.6-4.0) g/dL Albumin/Globulin Ratio 0.6 L (0.9-1.6) Twan Results Last 24 Hours: Microbiology 05/10/21 18:48 Aerobic Blood Culture - Final Blood - Venous Anaerobic Blood Culture - Final 05/10/21 18:53 Aerobic Blood Culture - Preliminary Blood - Venous - Lab Draw NO GROWTH AFTER 2 DAYS Anaerobic Blood Culture - Preliminary NO GROWTH AFTER 2 DAYS Med Orders - Current: Current Medications Albuterol (Albuterol 8 Gm Inhaler) 0 gm INH Q4HRRT PRN PRN Reason: Shortness of Breath Albuterol (Albuterol 0.083% 2.5 Mg/3 Ml Neb Soln) 2.5 mg NEB Q4HRRT PRN PRN Reason: Shortness of Breath Albuterol/Ipratropium (Albuterol/Ipratropium 4 Gm Inhalation [place]) 1 gm INH Q6H PRN PRN Reason: Shortness of Breath Albuterol/Ipratropium (Albuterol/Ipratropium 3.0-0.5 Mg/3 Ml Neb Soln) 3 ml NEB Q4HRRT [facility] Last Admin: 05/13/21 09:23 Dose: 3 ml Documented by: Benzonatate (Benzonatate 100 Mg Cap) 100 mg PO Q6H PRN PRN Reason: Cough Dexamethasone (Dexamethasone 4 Mg Tab) 6 mg PO Q24H [facility] Last Admin: 05/12/21 20:34 Dose: 6 mg Documented by: Heparin Sodium/Sodium Chloride (Heparin 25,000 Units In 1/2 Ns 500 Ml) 500 mls @ 26 mls/hr IV TITRATE [facility]; Protocol Last Titration: 05/13/21 08:15 Dose: 20.5 units/kg/hr, 41.807 mls/hr Documented by: Piperacillin Sod/Tazobactam (Sod 3.375 gm/ Sodium Chloride) 50 mls @ 100 mls/hr IV Q6H [facility] Last Admin: 05/13/21 06:10 Dose: 100 mls/hr Documented by: Azithromycin 500 mg/ Sodium (Chloride) 250 mls @ 250 mls/hr IV DAILY [facility] Last Admin: 05/13/21 08:27 Dose: 250 mls/hr Documented by: Remdesivir 100 mg/ Sodium (Chloride) 100 mls @ 100 mls/hr IV Q24H [facility] Stop: 05/14/21 20:59 Last Admin: 05/12/21 20:36 Dose: 100 mls/hr Documented by: Vancomycin HCl (Vancomycin 1.5 Gm/300 Ml) 300 mls @ 200 mls/hr IV Q8H [facility] Last Admin: 05/13/21 10:40 Dose: 200 mls/hr Documented by: Melatonin (Melatonin 3 Mg Tab) 6 mg PO BEDTIME PRN PRN Reason: Sleep Multivitamins/Minerals/Vitamin C (Multivitamin Tab) 1 tab PO DAILY [facility] Last Admin: 05/13/21 08:26 Dose: 1 tab Documented by: Fluticasone/Umeclidin/Vilanter [ Trelegy Ellipta 100- 62.5-25 Mcg] 1 each INH DAILY [facility] Last Admin: 05/13/21 08:27 Dose: 1 each Documented by: Furosemide 40 Mg (Tablet) 1 each PO DAILY [facility] Cholecalciferol ( Vitamin D3) 25 Mcg Tab 1 each PO DAILY [facility] Lisinopril 10 Mg Tab 1 each PO DAILY [facility] Vancomycin HCl (Pharmacy To Dose - Vancomycin) 1 dose .XX ASDIRECTED [facility] Discontinued Medications Cholecalciferol (Cholecalciferol (Vitamin D3) 25 Mcg Tab) 25 mcg PO DAILY [facility] Last Admin: 05/13/21 08:27 Dose: 25 mcg Documented by: Dexamethasone (Dexamethasone 10 Mg/Ml Sdv) 10 mg IVPUSH ONETIME ONE Stop: 05/10/21 19:53 Last Admin: 05/10/21 20:13 Dose: 10 mg Documented by: Furosemide (Furosemide 40 Mg Tab) 40 mg PO DAILY [facility] Last Admin: 05/13/21 08:47 Dose: Not Given Documented by: Heparin Sodium (Porcine) (Heparin Sodium 5,000 Units/Ml Vial) 5,000 units IVPUSH ONETIME ONE Stop: 05/10/21 20:34 Last Admin: 05/10/21 21:35 Dose: 5,000 units Documented by: Heparin Sodium (Porcine) (Heparin Sodium 5,000 Units/Ml Vial) 1,500 units IVPUSH .BOLUS ONE Stop: 05/11/21 19:33 Last Admin: 05/11/21 20:08 Dose: 1,500 units Documented by: Heparin Sodium (Porcine) (Heparin Sodium 5,000 Units/Ml Vial) 1,500 units IVPUSH .BOLUS ONE Stop: 05/12/21 07:43 Last Admin: 05/12/21 08:32 Dose: 1,500 units Documented by: Heparin Sodium (Porcine) (Heparin Sodium 5,000 Units/Ml Vial) 2,500 units IVPUSH .BOLUS ONE Stop: 05/13/21 07:44 Last Admin: 05/13/21 08:13 Dose: 2,500 units Documented by: Remdesivir 200 mg/ Sodium (Chloride) 250 mls @ 250 mls/hr IV ONETIME ONE Stop: 05/10/21 19:53 Last Admin: 05/10/21 20:14 Dose: 250 mls/hr Documented by: Heparin Sodium/Sodium Chloride (Heparin 25,000 Units In 1/2 Ns 500 Ml) Confirm Administered Dose 500 mls @ as directed .ROUTE .STK-MED ONE Stop: 05/10/21 21:04 Last Admin: 05/10/21 21:33 Dose: Not Given Documented by: Azithromycin 500 mg/ Sodium (Chloride) 250 mls @ 250 mls/hr IV DAILY [facility] Last Admin: 05/11/21 07:59 Dose: Not Given Documented by: Vancomycin HCl 2 gm/ Premix 400 mls @ 200 mls/hr IV STAT ONE Stop: 05/13/21 03:59 Last Admin: 05/13/21 02:55 Dose: 200 mls/hr Documented by: Iopamidol (Iopamidol 755 Mg/Ml 500 Ml Multipack Bottle) 100 ml IVPUSH ONETIME ONE Stop: 05/10/21 19:50 Last Admin: 05/10/21 19:53 Dose: 100 ml Documented by: Lisinopril (Lisinopril 10 Mg Tab) 10 mg PO DAILY [facility] Last Admin: 05/13/21 08:26 Dose: 10 mg Documented by: - Exam General: Alert, Oriented Neck: Supple Lungs: Clear to Auscultation, Normal Respiratory Effort Cardiovascular: Regular Rate, Regular Rhythm GI/Abdominal Exam: Normal Bowel Sounds, Soft, Non-Tender Extremities: Normal Inspection, Non-Tender Skin: Warm, Dry, Intact - Patient Data Lab Results Last 24 hrs: Laboratory Results - last 24 hr 05/12/21 05/12/21 05/13/21 Range/Units 12:03 18:04 00:45 WBC (4.0-11.0) K/uL RBC (4.30-5.90) M/uL Hgb (12.0-16.0) g/dL Hct (36.0-46.0) % MCV (80.0-98.0) fL MCH (27.0-32.0) pg MCHC (31.0-37.0) g/dL RDW Std Deviation (28.0-62.0) fl RDW Coeff of Vera (11.0-15.0) % Plt Count (150-400) K/uL MPV (7.40-12.00) fL Neut % (Auto) (48.0-80.0) % Lymph % (Auto) (16.0-40.0) % [place] % (Auto) (0.0-15.0) % Eos % (Auto) (0.0-7.0) % Baso % (Auto) (0.0-1.5) % Neut # (Auto) (1.4-5.7) K/uL Lymph # (Auto) (0.6-2.4) K/uL [place] # (Auto) (0.0-0.8) K/uL Eos # (Auto) (0.0-0.7) K/uL Baso # (Auto) (0.0-0.1) K/uL Nucleated RBC % /100WBC Nucleated RBCs # K/uL APTT 59.6 H 58.1 H 58.5 H (18.6-31.3) SEC Sodium (136-145) mmol/L Potassium (3.5-5.1) mmol/L Chloride (98-107) mmol/L Carbon Dioxide (21.0-32.0) mmol/L BUN (7.0-18.0) mg/dL Creatinine (0.6-1.0) mg/dL Est Cr Clr Drug Dosing mL/min Estimated GFR (MDRD) ml/min Glucose (74-106) mg/dL Calcium (8.5-10.1) mg/dL Total Bilirubin (0.2-1.0) mg/dL AST (15-37) IU/L ALT (14-63) IU/L Alkaline Phosphatase (46-116) U/L Total Protein (6.4-8.2) g/dL Albumin (3.4-5.0) g/dL Globulin (2.6-4.0) g/dL Albumin/Globulin Ratio (0.9-1.6) 05/13/21 05/13/21 05/13/21 Range/Units 05:21 05:21 05:21 WBC 3.06 L (4.0-11.0) K/uL RBC 4.53 (4.30-5.90) M/uL Hgb 13.8 (12.0-16.0) g/dL Hct 44.9 (36.0-46.0) % MCV 99.1 H (80.0-98.0) fL MCH 30.5 (27.0-32.0) pg MCHC 30.7 L (31.0-37.0) g/dL RDW Std Deviation 49.8 (28.0-62.0) fl RDW Coeff of Vera 14 (11.0-15.0) % Plt Count 155 (150-400) K/uL MPV 11.90 (7.40-12.00) fL Neut % (Auto) 76.1 (48.0-80.0) % Lymph % (Auto) 14.4 L (16.0-40.0) % [place] % (Auto) 9.5 (0.0-15.0) % Eos % (Auto) 0.0 (0.0-7.0) % Baso % (Auto) 0.0 (0.0-1.5) % Neut # (Auto) 2.3 (1.4-5.7) K/uL Lymph # (Auto) 0.4 L (0.6-2.4) K/uL [place] # (Auto) 0.3 (0.0-0.8) K/uL Eos # (Auto) 0.0 (0.0-0.7) K/uL Baso # (Auto) 0.0 (0.0-0.1) K/uL Nucleated RBC % 0.0 /100WBC Nucleated RBCs # 0 K/uL APTT 31.4 H (18.6-31.3) SEC Sodium 139 (136-145) mmol/L Potassium 4.3 (3.5-5.1) mmol/L Chloride 95 L (98-107) mmol/L Carbon Dioxide 44.9 H (21.0-32.0) mmol/L BUN 13 (7.0-18.0) mg/dL Creatinine 0.5 L (0.6-1.0) mg/dL Est Cr Clr Drug Dosing 121.81 mL/min Estimated GFR (MDRD) > 60.0 ml/min Glucose 126 H (74-106) mg/dL Calcium 8.7 (8.5-10.1) mg/dL Total Bilirubin 0.3 (0.2-1.0) mg/dL AST 30 (15-37) IU/L ALT 29 (14-63) IU/L Alkaline Phosphatase 67 (46-116) U/L Total Protein 5.9 L (6.4-8.2) g/dL Albumin 2.2 L (3.4-5.0) g/dL Globulin 3.7 (2.6-4.0) g/dL Albumin/Globulin Ratio 0.6 L (0.9-1.6) Result Diagrams: 05/13/21 05:21 05/13/21 05:21 Twan Results Last 24 hrs: Microbiology 05/10/21 18:48 Aerobic Blood Culture - Final Blood - Venous Anaerobic Blood Culture - Final 05/10/21 18:53 Aerobic Blood Culture - Preliminary Blood - Venous - Lab Draw NO GROWTH AFTER 2 DAYS Anaerobic Blood Culture - Preliminary NO GROWTH AFTER 2 DAYS Sepsis Event Note - Evaluation Sepsis Screening Result: Sepsis Risk - Focused Exam Vital Signs: Vital Signs Temp Pulse Resp BP BP Pulse Ox 05/13/21 08:26 115/66 05/13/21 08:00 36.2 C 77 20 115/66 90 L 05/13/21 04:24 36.4 C 70 20 99/61 91 L 05/13/21 00:00 36.2 C 88 19 101/60 90 L - Problem List & Annotations (1) COVID-19 SNOMED Code(s): 618347576 Code(s): U07.1 - COVID-19 Status: Acute Current Visit: Yes (2) Pulmonary embolism SNOMED Code(s): 54155613 Code(s): I26.99 - OTHER PULMONARY EMBOLISM WITHOUT ACUTE COR PULMONALE Status: Acute Current Visit: Yes (3) Respiratory failure with hypoxia SNOMED Code(s): 36541250519308390 Code(s): J96.91 - RESPIRATORY FAILURE, UNSPECIFIED WITH HYPOXIA Status: Acute Current Visit: No - Problem List Review Problem List Initiated/Reviewed/Updated: Yes - My Orders Last 24 Hours: My Active Orders 05/12/21 16:05 Albuterol [Proventil Neb Soln] 2.5 mg NEB Q4HRRT PRN Albuterol [Ventolin HFA] 0 gm INH Q4HRRT PRN 05/12/21 16:07 RT Aerosol Therapy [RC] ASDIRECTED RT Post Treatment Assessment [RC] Click to Edit RT Pre-Treatment Assessment [RC] Click to Edit 05/12/21 16:15 Multivitamins [Tab-A-Cheo] 1 tab PO DAILY Patient's Own Medication [Ptom] 1 each INH DAILY 05/12/21 18:00 Albuterol/Ipratropium [DuoNeb 3.0-0.5 MG/3 ML] 3 ml NEB Q4HRRT 05/12/21 21:00 Melatonin 6 mg PO BEDTIME PRN 05/12/21 23:44 [facility] [employer]ender Discontinue [Cardiac Monitoring Discontinue] [RC] Click to Edit 05/13/21 01:30 Pharmacy to Dose - Vancomycin 1 dose .XX ASDIRECTED 05/13/21 10:00 VANCOmycin 1.5 GM/300 ML 300 ml IV Q8H 05/13/21 12:07 aPTT [PTT,PARTIAL THROMBOPLSTIN TIME] [COAG] Q6H 05/13/21 18:07 aPTT [PTT,PARTIAL THROMBOPLSTIN TIME] [COAG] Q6H 05/14/21 00:07 aPTT [PTT,PARTIAL THROMBOPLSTIN TIME] [COAG] Q6H 05/14/21 05:11 CBC WITH AUTO DIFF [HEME] AM COMPREHENSIVE METABOLIC PN,CMP [CHEM] AM 05/14/21 06:07 aPTT [PTT,PARTIAL THROMBOPLSTIN TIME] [COAG] Q6H 05/14/21 09:00 Patient's Own Medication [Ptom] 1 each PO DAILY Patient's Own Medication [Ptom] 1 each PO DAILY Patient's Own Medication [Ptom] 1 each PO DAILY 05/15/21 01:30 VANCOMYCIN TROUGH [CHEM] Timed - Plan Plan:: 55 yo female admitted for COVID-19 pneumonia, acute respiratory failure and PE. Hypoxia: on 7 L NC COVID: treating with remdesivir and deamethasone, also on azithromycin and Zosyn PE: on heparin drip
[2021-05-13] MEDS: Pantoprazole 40 MG Tab.CR PO SCH (12:42)
[2021-05-13] MEDS: REMDESIVIR 100 MG in Sodium Chloride 0.9% 100 ML IV SCH (21:33)
[2021-05-13] MEDS: Dexamethasone 4 MG Tab PO SCH (21:34)
[2021-05-14] MEDS: VANCOmycin 1.5 GM/300 ML 300 ML IV SCH ×2 (02:11→11:21)
[2021-05-14] MEDS: Albuterol/Ipratropium 3.0-0.5 MG/3 ML Neb Soln NEB SCH ×6 (02:15→21:54)
[2021-05-14] MEDS: Piperacillin/Tazobactam 3.375 GM in Sodium Chloride 0.9% 50 ML IV SCH ×2 (06:18→12:44)
[2021-05-14 07:50] LABS: BLOOD UREA NITROGEN,BUN 12 mg/dL (7.0-18.0); CARBON DIOXIDE,CO2 41.8 mmol/L (21.0-32.0); CHLORIDE,CL 102 mmol/L (98-107); GLUCOSE RANDOM 152 mg/dL (74-106); POTASSIUM,K 4.5 mmol/L (3.5-5.1); SODIUM,NA 143 mmol/L (136-145)
[2021-05-14] MEDS: Multivitamin Tab PO SCH (08:33)
[2021-05-14] MEDS: Azithromycin 500 MG in Sodium Chloride 0.9% 250 ML IV SCH (08:33)
[2021-05-14] MEDS: Pantoprazole 40 MG Tab.CR PO SCH (08:33)
[2021-05-14] MEDS: Lisinopril 10 MG Tab PO SCH (08:40)
[2021-05-14] MEDS: Cholecalciferol (Vitamin D3) 25 MCG Tab PO SCH (08:41)
[2021-05-14] MEDS: Apixaban 5 MG Tab PO SCH ×2 (10:52→20:42)
[2021-05-14] MEDS ORDERED: Enoxaparin 100 MG/1 ML Syringe SUBCUT SCH (11:00)
[2021-05-14] MEDS: Fluticasone/Umeclidin/Vilanter [Trelegy Ellipta 100-62.5-25 Mcg] INH SCH (11:01)
[2021-05-14] MEDS ORDERED: Albuterol 8 GM Inhaler INH SCH (13:15)
--- NOTE | 2021-05-14 13:25 | PCM.PN ---
- General Info Date of Service: 05/14/21 Admission Dx/Problem (Free Text): General: Obese middle aged female. In no acute distress. Able to speak in full sentences. CVS: S1S2 RRR. No murmurs, rubs or gallops lungs: diminished breath sounds bilaterally. No rales or wheezes pa: soft, obese, non tender. ext: no clubbing, cyanosis or edema neuro: no focal deficits Subjective Update: Pt is still requiring about 7 L oxygen by [place] to keep sats > 90%. She is afebrile. Denies feeling dyspneic. She has not been proning much and has not been using an incentive spirometer since admission. - Patient Data Vitals - Most Recent: Last Vital Signs Temp 96.9 F 05/14/21 11:30 Pulse 80 05/14/21 11:30 Resp 18 05/14/21 11:30 BP 115/64 05/14/21 11:30 Pulse Ox 90 L 05/14/21 11:30 Weight - Most Recent: 224 lb 12.8 oz I&O - Last 24 Hours: Intake & Output 05/13/21 05/14/21 05/14/21 22:59 06:59 14:59 Intake Total 1829 1100 Output Total 1300 Balance 1829 -200 Lab Results Last 24 Hours: Laboratory Results - last 24 hr 05/13/21 05/13/21 05/14/21 Range/Units 12:55 17:58 00:30 WBC (4.0-11.0) K/uL RBC (4.30-5.90) M/uL Hgb (12.0-16.0) g/dL Hct (36.0-46.0) % MCV (80.0-98.0) fL MCH (27.0-32.0) pg MCHC (31.0-37.0) g/dL RDW Std Deviation (28.0-62.0) fl RDW Coeff of Vera (11.0-15.0) % Plt Count (150-400) K/uL MPV (7.40-12.00) fL Neut % (Auto) (48.0-80.0) % Lymph % (Auto) (16.0-40.0) % [place] % (Auto) (0.0-15.0) % Eos % (Auto) (0.0-7.0) % Baso % (Auto) (0.0-1.5) % Neut # (Auto) (1.4-5.7) K/uL Lymph # (Auto) (0.6-2.4) K/uL [place] # (Auto) (0.0-0.8) K/uL Eos # (Auto) (0.0-0.7) K/uL Baso # (Auto) (0.0-0.1) K/uL Nucleated RBC % /100WBC Nucleated RBCs # K/uL APTT 92.2 H 55.1 H 49.6 H (18.6-31.3) SEC Sodium (136-145) mmol/L Potassium (3.5-5.1) mmol/L Chloride (98-107) mmol/L Carbon Dioxide (21.0-32.0) mmol/L BUN (7.0-18.0) mg/dL Creatinine (0.6-1.0) mg/dL Est Cr Clr Drug Dosing mL/min Estimated GFR (MDRD) ml/min Glucose (74-106) mg/dL Calcium (8.5-10.1) mg/dL Total Bilirubin (0.2-1.0) mg/dL AST (15-37) IU/L ALT (14-63) IU/L Alkaline Phosphatase (46-116) U/L Total Protein (6.4-8.2) g/dL Albumin (3.4-5.0) g/dL Globulin (2.6-4.0) g/dL Albumin/Globulin Ratio (0.9-1.6) 05/14/21 05/14/21 05/14/21 Range/Units 06:02 06:02 06:02 WBC 2.29 L (4.0-11.0) K/uL RBC 4.52 (4.30-5.90) M/uL Hgb 13.5 (12.0-16.0) g/dL Hct 43.8 (36.0-46.0) % MCV 96.9 (80.0-98.0) fL MCH 29.9 (27.0-32.0) pg MCHC 30.8 L (31.0-37.0) g/dL RDW Std Deviation 50.0 (28.0-62.0) fl RDW Coeff of Vera 14 (11.0-15.0) % Plt Count 184 (150-400) K/uL MPV 12.00 (7.40-12.00) fL Neut % (Auto) 80.3 H (48.0-80.0) % Lymph % (Auto) 13.1 L (16.0-40.0) % [place] % (Auto) 6.6 (0.0-15.0) % Eos % (Auto) 0.0 (0.0-7.0) % Baso % (Auto) 0.0 (0.0-1.5) % Neut # (Auto) 1.8 (1.4-5.7) K/uL Lymph # (Auto) 0.3 L (0.6-2.4) K/uL [place] # (Auto) 0.2 (0.0-0.8) K/uL Eos # (Auto) 0.0 (0.0-0.7) K/uL Baso # (Auto) 0.0 (0.0-0.1) K/uL Nucleated RBC % 0.0 /100WBC Nucleated RBCs # 0 K/uL APTT 97.8 H (18.6-31.3) SEC Sodium 143 (136-145) mmol/L Potassium 4.5 (3.5-5.1) mmol/L Chloride 102 (98-107) mmol/L Carbon Dioxide 41.8 H (21.0-32.0) mmol/L BUN 12 (7.0-18.0) mg/dL Creatinine 0.4 L (0.6-1.0) mg/dL Est Cr Clr Drug Dosing 152.26 mL/min Estimated GFR (MDRD) > 60.0 ml/min Glucose 152 H (74-106) mg/dL Calcium 8.2 L (8.5-10.1) mg/dL Total Bilirubin 0.2 (0.2-1.0) mg/dL AST 24 (15-37) IU/L ALT 27 (14-63) IU/L Alkaline Phosphatase 73 (46-116) U/L Total Protein 5.7 L (6.4-8.2) g/dL Albumin 2.0 L (3.4-5.0) g/dL Globulin 3.7 (2.6-4.0) g/dL Albumin/Globulin Ratio 0.5 L (0.9-1.6) Twan Results Last 24 Hours: Microbiology 05/10/21 18:48 Blood Culture Identification Panel - Preliminary Blood Gram Positive Cocci In Clustrs 05/10/21 18:53 Aerobic Blood Culture - Preliminary Blood - Venous - Lab Draw NO GROWTH AFTER 3 DAYS Anaerobic Blood Culture - Preliminary NO GROWTH AFTER 3 DAYS Med Orders - Current: Current Medications Albuterol (Albuterol 8 Gm Inhaler) 0 gm INH Q4HRRT PRN PRN Reason: Shortness of Breath Albuterol (Albuterol 0.083% 2.5 Mg/3 Ml Neb Soln) 2.5 mg NEB Q4HRRT PRN PRN Reason: Shortness of Breath Albuterol (Albuterol 8 Gm Inhaler) 2 gm INH Q2H [facility] Albuterol/Ipratropium (Albuterol/Ipratropium 3.0-0.5 Mg/3 Ml Neb Soln) 3 ml NEB Q4HRRT [facility] Last Admin: 05/14/21 11:16 Dose: 3 ml Documented by: Apixaban (Apixaban 5 Mg Tab) 10 mg PO BID [facility] Last Admin: 05/14/21 10:52 Dose: 10 mg Documented by: Azithromycin (Azithromycin 250 Mg Tab) 500 mg PO Q24H [facility] Stop: 05/16/21 08:01 Benzonatate (Benzonatate 100 Mg Cap) 100 mg PO Q6H PRN PRN Reason: Cough Dexamethasone (Dexamethasone 4 Mg Tab) 6 mg PO Q24H [facility] Last Admin: 05/13/21 21:34 Dose: 6 mg Documented by: Remdesivir 100 mg/ Sodium (Chloride) 100 mls @ 100 mls/hr IV Q24H [facility] Stop: 05/14/21 20:59 Last Admin: 05/13/21 21:33 Dose: 100 mls/hr Documented by: Melatonin (Melatonin 3 Mg Tab) 6 mg PO BEDTIME PRN PRN Reason: Sleep Multivitamins/Minerals/Vitamin C (Multivitamin Tab) 1 tab PO DAILY [facility] Last Admin: 05/14/21 08:33 Dose: 1 tab Documented by: Pantoprazole Sodium (Pantoprazole 40 Mg Tab.Cr) 40 mg PO DAILY [facility] Last Admin: 05/14/21 08:33 Dose: 40 mg Documented by: Fluticasone/Umeclidin/Vilanter [ Trelegy Ellipta 100- 62.5-25 Mcg] 1 each INH DAILY [facility] Last Admin: 05/14/21 11:01 Dose: Not Given Documented by: Furosemide 40 Mg (Tablet) 1 each PO DAILY [facility] Last Admin: 05/14/21 09:39 Dose: 1 each Documented by: Cholecalciferol ( Vitamin D3) 25 Mcg Tab 1 each PO DAILY [facility] Last Admin: 05/14/21 08:41 Dose: 1 each Documented by: Lisinopril 10 Mg Tab 1 each PO DAILY [facility] Last Admin: 05/14/21 08:40 Dose: 1 each Documented by: Vancomycin HCl (Pharmacy To Dose - Vancomycin) 1 dose .XX ASDIRECTED [facility] Discontinued Medications Albuterol/Ipratropium (Albuterol/Ipratropium 4 Gm Inhalation [place]) 1 gm INH Q6H PRN PRN Reason: Shortness of Breath Cholecalciferol (Cholecalciferol (Vitamin D3) 25 Mcg Tab) 25 mcg PO DAILY [facility] Last Admin: 05/13/21 08:27 Dose: 25 mcg Documented by: Dexamethasone (Dexamethasone 10 Mg/Ml Sdv) 10 mg IVPUSH ONETIME ONE Stop: 05/10/21 19:53 Last Admin: 05/10/21 20:13 Dose: 10 mg Documented by: Enoxaparin Sodium (Enoxaparin 100 Mg/1 Ml Syringe) 100 mg SUBCUT Q12H [facility] Furosemide (Furosemide 40 Mg Tab) 40 mg PO DAILY [facility] Last Admin: 05/13/21 08:47 Dose: Not Given Documented by: Heparin Sodium (Porcine) (Heparin Sodium 5,000 Units/Ml Vial) 5,000 units IVPUS H ONETIME ONE Stop: 05/10/21 20:34 Last Admin: 05/10/21 21:35 Dose: 5,000 units Documented by: Heparin Sodium (Porcine) (Heparin Sodium 5,000 Units/Ml Vial) 1,500 units IVPUSH .BOLUS ONE Stop: 05/11/21 19:33 Last Admin: 05/11/21 20:08 Dose: 1,500 units Documented by: Heparin Sodium (Porcine) (Heparin Sodium 5,000 Units/Ml Vial) 1,500 units IVPUSH .BOLUS ONE Stop: 05/12/21 07:43 Last Admin: 05/12/21 08:32 Dose: 1,500 units Documented by: Heparin Sodium (Porcine) (Heparin Sodium 5,000 Units/Ml Vial) 2,500 units IVPUSH .BOLUS ONE Stop: 05/13/21 07:44 Last Admin: 05/13/21 08:13 Dose: 2,500 units Documented by: Remdesivir 200 mg/ Sodium (Chloride) 250 mls @ 250 mls/hr IV ONETIME ONE Stop: 05/10/21 19:53 Last Admin: 05/10/21 20:14 Dose: 250 mls/hr Documented by: Heparin Sodium/Sodium Chloride (Heparin 25,000 Units In 1/2 Ns 500 Ml) 500 mls @ 26 mls/hr IV TITRATE [facility]; Protocol Last Titration: 05/14/21 01:53 Dose: 17.5 units/kg/hr, 35.689 mls/hr Documented by: Heparin Sodium/Sodium Chloride (Heparin 25,000 Units In 1/2 Ns 500 Ml) Confirm Administered Dose 500 mls @ as directed .ROUTE .STK-MED ONE Stop: 05/10/21 21:04 Last Admin: 05/10/21 21:33 Dose: Not Given Documented by: Azithromycin 500 mg/ Sodium (Chloride) 250 mls @ 250 mls/hr IV DAILY [facility] Last Admin: 05/11/21 07:59 Dose: Not Given Documented by: Piperacillin Sod/Tazobactam (Sod 3.375 gm/ Sodium Chloride) 50 mls @ 100 mls/hr IV Q6H [facility] Last Admin: 05/14/21 12:44 Dose: 100 mls/hr Documented by: Azithromycin 500 mg/ Sodium (Chloride) 250 mls @ 250 mls/hr IV DAILY [facility] Last Admin: 05/14/21 08:33 Dose: 250 mls/hr Documented by: Vancomycin HCl 2 gm/ Premix 400 mls @ 200 mls/hr IV STAT ONE Stop: 05/13/21 03:59 Last Admin: 05/13/21 02:55 Dose: 200 mls/hr Documented by: Vancomycin HCl (Vancomycin 1.5 Gm/300 Ml) 300 mls @ 200 mls/hr IV Q8H [facility] Last Admin: 05/14/21 11:21 Dose: 200 mls/hr Documented by: Iopamidol (Iopamidol 755 Mg/Ml 500 Ml Multipack Bottle) 100 ml IVPUSH ONETIME ONE Stop: 05/10/21 19:50 Last Admin: 05/10/21 19:53 Dose: 100 ml Documented by: Lisinopril (Lisinopril 10 Mg Tab) 10 mg PO DAILY [facility] Last Admin: 05/13/21 08:26 Dose: 10 mg Documented by: - Exam Physical Findings Comments:: General: Obese middle aged female. In no acute distress. Able to speak in full sentences. CVS: S1S2 RRR. No murmurs, rubs or gallops lungs: diminished breath sounds bilaterally. No rales or wheezes pa: soft, obese, non tender. ext: no clubbing, cyanosis or edema neuro: no focal deficits psych: stable mood and affect. - Patient Data Lab Results Last 24 hrs: Laboratory Results - last 24 hr 05/13/21 05/13/21 05/14/21 Range/Units 12:55 17:58 00:30 WBC (4.0-11.0) K/uL RBC (4.30-5.90) M/uL Hgb (12.0-16.0) g/dL Hct (36.0-46.0) % MCV (80.0-98.0) fL MCH (27.0-32.0) pg MCHC (31.0-37.0) g/dL RDW Std Deviation (28.0-62.0) fl RDW Coeff of Vera (11.0-15.0) % Plt Count (150-400) K/uL MPV (7.40-12.00) fL Neut % (Auto) (48.0-80.0) % Lymph % (Auto) (16.0-40.0) % [place] % (Auto) (0.0-15.0) % Eos % (Auto) (0.0-7.0) % Baso % (Auto) (0.0-1.5) % Neut # (Auto) (1.4-5.7) K/uL Lymph # (Auto) (0.6-2.4) K/uL [place] # (Auto) (0.0-0.8) K/uL Eos # (Auto) (0.0-0.7) K/uL Baso # (Auto) (0.0-0.1) K/uL Nucleated RBC % /100WBC Nucleated RBCs # K/uL APTT 92.2 H 55.1 H 49.6 H (18.6-31.3) SEC Sodium (136-145) mmol/L Potassium (3.5-5.1) mmol/L Chloride (98-107) mmol/L Carbon Dioxide (21.0-32.0) mmol/L BUN (7.0-18.0) mg/dL Creatinine (0.6-1.0) mg/dL Est Cr Clr Drug Dosing mL/min Estimated GFR (MDRD) ml/min Glucose (74-106) mg/dL Calcium (8.5-10.1) mg/dL Total Bilirubin (0.2-1.0) mg/dL AST (15-37) IU/L ALT (14-63) IU/L Alkaline Phosphatase (46-116) U/L Total Protein (6.4-8.2) g/dL Albumin (3.4-5.0) g/dL Globulin (2.6-4.0) g/dL Albumin/Globulin Ratio (0.9-1.6) 05/14/21 05/14/21 05/14/21 Range/Units 06:02 06:02 06:02 WBC 2.29 L (4.0-11.0) K/uL RBC 4.52 (4.30-5.90) M/uL Hgb 13.5 (12.0-16.0) g/dL Hct 43.8 (36.0-46.0) % MCV 96.9 (80.0-98.0) fL MCH 29.9 (27.0-32.0) pg MCHC 30.8 L (31.0-37.0) g/dL RDW Std Deviation 50.0 (28.0-62.0) fl RDW Coeff of Vera 14 (11.0-15.0) % Plt Count 184 (150-400) K/uL MPV 12.00 (7.40-12.00) fL Neut % (Auto) 80.3 H (48.0-80.0) % Lymph % (Auto) 13.1 L (16.0-40.0) % [place] % (Auto) 6.6 (0.0-15.0) % Eos % (Auto) 0.0 (0.0-7.0) % Baso % (Auto) 0.0 (0.0-1.5) % Neut # (Auto) 1.8 (1.4-5.7) K/uL Lymph # (Auto) 0.3 L (0.6-2.4) K/uL [place] # (Auto) 0.2 (0.0-0.8) K/uL Eos # (Auto) 0.0 (0.0-0.7) K/uL Baso # (Auto) 0.0 (0.0-0.1) K/uL Nucleated RBC % 0.0 /100WBC Nucleated RBCs # 0 K/uL APTT 97.8 H (18.6-31.3) SEC Sodium 143 (136-145) mmol/L Potassium 4.5 (3.5-5.1) mmol/L Chloride 102 (98-107) mmol/L Carbon Dioxide 41.8 H (21.0-32.0) mmol/L BUN 12 (7.0-18.0) mg/dL Creatinine 0.4 L (0.6-1.0) mg/dL Est Cr Clr Drug Dosing 152.26 mL/min Estimated GFR (MDRD) > 60.0 ml/min Glucose 152 H (74-106) mg/dL Calcium 8.2 L (8.5-10.1) mg/dL Total Bilirubin 0.2 (0.2-1.0) mg/dL AST 24 (15-37) IU/L ALT 27 (14-63) IU/L Alkaline Phosphatase 73 (46-116) U/L Total Protein 5.7 L (6.4-8.2) g/dL Albumin 2.0 L (3.4-5.0) g/dL Globulin 3.7 (2.6-4.0) g/dL Albumin/Globulin Ratio 0.5 L (0.9-1.6) Result Diagrams: 05/14/21 06:02 05/14/21 06:02 Twan Results Last 24 hrs: Microbiology 05/10/21 18:48 Blood Culture Identification Panel - Preliminary Blood Gram Positive Cocci In Clustrs 05/10/21 18:53 Aerobic Blood Culture - Preliminary Blood - Venous - Lab Draw NO GROWTH AFTER 3 DAYS Anaerobic Blood Culture - Preliminary NO GROWTH AFTER 3 DAYS Sepsis Event Note - Evaluation Sepsis Screening Result: No Definite Risk - Focused Exam Vital Signs: Vital Signs Temp Pulse Resp BP Pulse Ox 05/14/21 11:30 96.9 F 80 18 115/64 90 L 05/14/21 08:00 96.2 F L 84 20 119/73 86 L 05/14/21 03:39 97.3 F 61 16 120/69 94 L - Problem List & Annotations (1) Obesity (BMI 30-39.9) SNOMED Code(s): 544829010, 313953580 Code(s): E66.9 - OBESITY, UNSPECIFIED Status: Acute Current Visit: Yes (2) Pulmonary embolism SNOMED Code(s): 76843976 Code(s): I26.99 - OTHER PULMONARY EMBOLISM WITHOUT ACUTE COR PULMONALE Status: Acute Current Visit: Yes (3) Acute on chronic respiratory failure with hypoxia and hypercapnia SNOMED Code(s): 24076616691669 Code(s): J96.21 - ACUTE AND CHRONIC RESPIRATORY FAILURE WITH HYPOXIA; J96.22 - ACUTE AND CHRONIC RESPIRATORY FAILURE WITH HYPERCAPNIA Status: Acute Current Visit: No (4) COPD exacerbation SNOMED Code(s): 452281206 Code(s): J44.1 - CHRONIC OBSTRUCTIVE PULMONARY DISEASE W (ACUTE) EXACERBATION Status: Acute Current Visit: No - Problem List Review Problem List Initiated/Reviewed/Updated: Yes - My Orders Last 24 Hours: My Active Orders 05/14/21 13:11 Communication Order [RC] ROUTINE RT Post Treatment Assessment [RC] Click to Edit RT Pre-Treatment Assessment [RC] Click to Edit 05/14/21 13:12 RT Incentive Spirometry [RC] Q1HWA 05/14/21 13:15 Albuterol [Ventolin HFA] 2 gm INH Q2H Azithromycin [Zithromax] 500 mg PO Q24H - Plan Plan:: 55 y/o morbidly obese female with a h/o tobacco abuse, COPD and chronic hypoxemic respiratory failure on 4L home oxygen admitted for with worsening dyspnea due acute on chronic respiratory failure secondary to COVID 19 pneumonia Continue with Remdesivir, Dexamethasone and Zithromycin. DC Vancomycin and Zosyn. Encourage proning Incentive spirometry Q 1hr while awake. Wean down oxygen as tolerated. Pt can go home when back to her baseline oxygen status or 4 L NC. Pulmonary embolism DC heparin gtt. Start Eliquis. Morbid obesity lifestyle modifications COPD Inhalers Q4 and Q2prn Full code
[2021-05-14] MEDS ORDERED: Albuterol 8 GM Inhaler INH PRN (13:27)
[2021-05-14] MEDS: REMDESIVIR 100 MG in Sodium Chloride 0.9% 100 ML IV SCH (20:43)
[2021-05-14] MEDS: Dexamethasone 4 MG Tab PO SCH (20:43)
[2021-05-15] MEDS: Albuterol/Ipratropium 3.0-0.5 MG/3 ML Neb Soln NEB SCH ×6 (01:18→22:05)
[2021-05-15] MEDS ORDERED: Acetaminophen 325 MG Tab PO PRN (03:47)
[2021-05-15] MEDS: Azithromycin 250 MG Tab PO SCH (08:50)
[2021-05-15] MEDS: Apixaban 5 MG Tab PO SCH ×2 (08:50→20:07)
[2021-05-15] MEDS: Multivitamin Tab PO SCH (08:51)
[2021-05-15] MEDS: Pantoprazole 40 MG Tab.CR PO SCH (08:51)
[2021-05-15] MEDS: Lisinopril 10 MG Tab PO SCH (08:52)
[2021-05-15] MEDS: Fluticasone/Umeclidin/Vilanter [Trelegy Ellipta 100-62.5-25 Mcg] INH SCH (08:52)
[2021-05-15] MEDS: Cholecalciferol (Vitamin D3) 25 MCG Tab PO SCH (08:52)
--- NOTE | 2021-05-15 11:23 | PCM.PN ---
- General Info Date of Service: 05/15/21 Subjective Update: Pt feels OK. Close to her baseline. She is requiring about 5-6 L oxygen by [place]. - Patient Data Vitals - Most Recent: Last Vital Signs Temp 96.1 F L 05/15/21 08:56 Pulse 86 05/15/21 08:56 Resp 18 05/15/21 08:56 BP 121/62 05/15/21 08:56 Pulse Ox 87 L 05/15/21 08:56 Weight - Most Recent: 224 lb 12.8 oz I&O - Last 24 Hours: Intake & Output 05/14/21 05/15/21 05/15/21 22:59 06:59 14:59 Intake Total 1800 1200 Output Total 600 Balance 1800 600 Lab Results Last 24 Hours: Laboratory Results - last 24 hr 05/15/21 Range/Units 01:40 Vancomycin Trough 8.4 (5.0-10.0) ug/mL [facility] Results Last 24 Hours: Microbiology 05/10/21 18:53 Aerobic Blood Culture - Preliminary Blood - Venous - Lab Draw NO GROWTH AFTER 4 DAYS Anaerobic Blood Culture - Preliminary NO GROWTH AFTER 4 DAYS 05/10/21 18:48 Blood Culture Identification Panel - Preliminary Blood Gram Positive Cocci In Clustrs Med Orders - Current: Current Medications Acetaminophen (Acetaminophen 325 Mg Tab) 650 mg PO Q6H PRN PRN Reason: Pain Last Admin: 05/15/21 04:11 Dose: 650 mg Documented by: Albuterol (Albuterol 8 Gm Inhaler) 0 gm INH Q4HRRT PRN PRN Reason: Shortness of Breath Albuterol (Albuterol 0.083% 2.5 Mg/3 Ml Neb Soln) 2.5 mg NEB Q4HRRT PRN PRN Reason: Shortness of Breath Albuterol (Albuterol 8 Gm Inhaler) 2 gm INH Q2H PRN PRN Reason: Dyspnea Albuterol/Ipratropium (Albuterol/Ipratropium 3.0-0.5 Mg/3 Ml Neb Soln) 3 ml NEB Q4HRRT [facility] Last Admin: 05/15/21 10:30 Dose: 3 ml Documented by: Apixaban (Apixaban 5 Mg Tab) 10 mg PO BID [facility] Last Admin: 05/15/21 08:50 Dose: 10 mg Documented by: Azithromycin (Azithromycin 250 Mg Tab) 500 mg PO Q24H [facility] Stop: 05/16/21 08:01 Last Admin: 05/15/21 08:50 Dose: 500 mg Documented by: Benzonatate (Benzonatate 100 Mg Cap) 100 mg PO Q6H PRN PRN Reason: Cough Dexamethasone (Dexamethasone 4 Mg Tab) 6 mg PO Q24H [facility] Last Admin: 05/14/21 20:43 Dose: 6 mg Documented by: Melatonin (Melatonin 3 Mg Tab) 6 mg PO BEDTIME PRN PRN Reason: Sleep Multivitamins/Minerals/Vitamin C (Multivitamin Tab) 1 tab PO DAILY [facility] Last Admin: 05/15/21 08:51 Dose: 1 tab Documented by: Pantoprazole Sodium (Pantoprazole 40 Mg Tab.Cr) 40 mg PO DAILY [facility] Last Admin: 05/15/21 08:51 Dose: 40 mg Documented by: Fluticasone/Umeclidin/Vilanter [ Trelegy Ellipta 100- 62.5-25 Mcg] 1 each INH DAILY [facility] Last Admin: 05/15/21 08:52 Dose: 1 each Documented by: Furosemide 40 Mg (Tablet) 1 each PO DAILY [facility] Last Admin: 05/15/21 08:51 Dose: 1 each Documented by: Cholecalciferol ( Vitamin D3) 25 Mcg Tab 1 each PO DAILY [facility] Last Admin: 05/15/21 08:52 Dose: 1 each Documented by: Lisinopril 10 Mg Tab 1 each PO DAILY [facility] Last Admin: 05/15/21 08:52 Dose: 1 each Documented by: Vancomycin HCl (Pharmacy To Dose - Vancomycin) 1 dose .XX ASDIRECTED [facility] Discontinued Medications Albuterol (Albuterol 8 Gm Inhaler) 2 gm INH Q2H [facility] Last Admin: 05/14/21 14:25 Dose: Not Given Documented by: Albuterol/Ipratropium (Albuterol/Ipratropium 4 Gm Inhalation [place]) 1 gm INH Q 6H PRN PRN Reason: Shortness of Breath Cholecalciferol (Cholecalciferol (Vitamin D3) 25 Mcg Tab) 25 mcg PO DAILY [facility] Last Admin: 05/13/21 08:27 Dose: 25 mcg Documented by: Dexamethasone (Dexamethasone 10 Mg/Ml Sdv) 10 mg IVPUSH ONETIME ONE Stop: 05/10/21 19:53 Last Admin: 05/10/21 20:13 Dose: 10 mg Documented by: Enoxaparin Sodium (Enoxaparin 100 Mg/1 Ml Syringe) 100 mg SUBCUT Q12H [facility] Furosemide (Furosemide 40 Mg Tab) 40 mg PO DAILY [facility] Last Admin: 05/13/21 08:47 Dose: Not Given Documented by: Heparin Sodium (Porcine) (Heparin Sodium 5,000 Units/Ml Vial) 5,000 units IVPUSH ONETIME ONE Stop: 05/10/21 20:34 Last Admin: 05/10/21 21:35 Dose: 5,000 units Documented by: Heparin Sodium (Porcine) (Heparin Sodium 5,000 Units/Ml Vial) 1,500 units IVPUSH .BOLUS ONE Stop: 05/11/21 19:33 Last Admin: 05/11/21 20:08 Dose: 1,500 units Documented by: Heparin Sodium (Porcine) (Heparin Sodium 5,000 Units/Ml Vial) 1,500 units IVPUSH .BOLUS ONE Stop: 05/12/21 07:43 Last Admin: 05/12/21 08:32 Dose: 1,500 units Documented by: Heparin Sodium (Porcine) (Heparin Sodium 5,000 Units/Ml Vial) 2,500 units IVPUSH .BOLUS ONE Stop: 05/13/21 07:44 Last Admin: 05/13/21 08:13 Dose: 2,500 units Documented by: Remdesivir 200 mg/ Sodium (Chloride) 250 mls @ 250 mls/hr IV ONETIME ONE Stop: 05/10/21 19:53 Last Admin: 05/10/21 20:14 Dose: 250 mls/hr Documented by: Heparin Sodium/Sodium Chloride (Heparin 25,000 Units In 1/2 Ns 500 Ml) 500 mls @ 26 mls/hr IV TITRATE [facility]; Protocol Last Titration: 05/14/21 01:53 Dose: 17.5 units/kg/hr, 35.689 mls/hr Documented by: Heparin Sodium/Sodium Chloride (Heparin 25,000 Units In 1/2 Ns 500 Ml) Confirm Administered Dose 500 mls @ as directed .ROUTE .STK-MED ONE Stop: 05/10/21 21:04 Last Admin: 05/10/21 21:33 Dose: Not Given Documented by: Azithromycin 500 mg/ Sodium (Chloride) 250 mls @ 250 mls/hr IV DAILY [facility] Last Admin: 05/11/21 07:59 Dose: Not Given Documented by: Piperacillin Sod/Tazobactam (Sod 3.375 gm/ Sodium Chloride) 50 mls @ 100 mls/hr IV Q6H [facility] Last Admin: 05/14/21 12:44 Dose: 100 mls/hr Documented by: Azithromycin 500 mg/ Sodium (Chloride) 250 mls @ 250 mls/hr IV DAILY [facility] Last Admin: 05/14/21 08:33 Dose: 250 mls/hr Documented by: Remdesivir 100 mg/ Sodium (Chloride) 100 mls @ 100 mls/hr IV Q24H [facility] Stop: 05/14/21 20:59 Last Admin: 05/14/21 20:43 Dose: 100 mls/hr Documented by: Vancomycin HCl 2 gm/ Premix 400 mls @ 200 mls/hr IV STAT ONE Stop: 05/13/21 03:59 Last Admin: 05/13/21 02:55 Dose: 200 mls/hr Documented by: Vancomycin HCl (Vancomycin 1.5 Gm/300 Ml) 300 mls @ 200 mls/hr IV Q8H [facility] Last Admin: 05/14/21 11:21 Dose: 200 mls/hr Documented by: Iopamidol (Iopamidol 755 Mg/Ml 500 Ml Multipack Bottle) 100 ml IVPUSH ONETIME ONE Stop: 05/10/21 19:50 Last Admin: 05/10/21 19:53 Dose: 100 ml Documented by: Lisinopril (Lisinopril 10 Mg Tab) 10 mg PO DAILY [facility] Last Admin: 05/13/21 08:26 Dose: 10 mg Documented by: - Exam Physical Findings Comments:: General: Obese middle aged female. In no acute distress. Able to speak in full sentences. CVS: S1S2 RRR. No murmurs, rubs or gallops lungs: diminished breath sounds bilaterally. No rales or wheezes pa: soft, obese, non tender. ext: no clubbing, cyanosis or edema neuro: no focal deficits Psych: stable mood and affect. - Patient Data Lab Results Last 24 hrs: Laboratory Results - last 24 hr 05/15/21 Range/Units 01:40 Vancomycin Trough 8.4 (5.0-10.0) ug/mL Result Diagrams: 05/14/21 06:02 05/14/21 06:02 Twan Results Last 24 hrs: Microbiology 05/10/21 18:53 Aerobic Blood Culture - Preliminary Blood - Venous - Lab Draw NO GROWTH AFTER 4 DAYS Anaerobic Blood Culture - Preliminary NO GROWTH AFTER 4 DAYS 05/10/21 18:48 Blood Culture Identification Panel - Preliminary Blood Gram [facility] Event Note - Evaluation Sepsis Screening Result: Sepsis Risk - Focused Exam Vital Signs: Vital Signs Temp Pulse Resp BP BP Pulse Ox 05/15/21 08:56 96.1 F L 86 18 121/62 87 L 05/15/21 03:36 96.8 F L 82 21 H 117/75 91 L 05/15/21 00:40 96.8 F L 79 20 116/69 92 L - Problem List & Annotations (1) Obesity (BMI 30-39.9) SNOMED Code(s): 654132217, 051546278 Code(s): E66.9 - OBESITY, UNSPECIFIED Status: Acute Current Visit: Yes (2) Pulmonary embolism SNOMED Code(s): 18043276 Code(s): I26.99 - OTHER PULMONARY EMBOLISM WITHOUT ACUTE COR PULMONALE Status: Acute Current Visit: Yes (3) Acute on chronic respiratory failure with hypoxia and hypercapnia SNOMED Code(s): 10953684343912 Code(s): J96.21 - ACUTE AND CHRONIC RESPIRATORY FAILURE WITH HYPOXIA; J96.22 - ACUTE AND CHRONIC RESPIRATORY FAILURE WITH HYPERCAPNIA Status: Acute Current Visit: No (4) COPD exacerbation SNOMED Code(s): 016046719 Code(s): J44.1 - CHRONIC OBSTRUCTIVE PULMONARY DISEASE W (ACUTE) EXACERBATION Status: Acute Current Visit: No - Problem List Review Problem List Initiated/Reviewed/Updated: Yes - My Orders Last 24 Hours: My Active Orders 05/14/21 13:11 Communication Order [RC] ROUTINE RT Post Treatment Assessment [RC] Click to Edit RT Pre-Treatment Assessment [RC] Click to Edit 05/14/21 13:12 RT Incentive Spirometry [RC] Q1HWA 05/15/21 03:47 Acetaminophen [TylenoL] 650 mg PO Q6H PRN 05/15/21 08:00 Azithromycin [Zithromax] 500 mg PO Q24H - Plan Plan:: 55 y/o morbidly obese female with a h/o tobacco abuse, COPD and chronic hypoxemic respiratory failure on 4L home oxygen admitted for with worsening dyspnea due acute on chronic respiratory failure secondary to COVID 19 pneumonia Continue with Remdesivir, Dexamethasone and Zithromycin. DC Vancomycin and Zosyn. Encourage proning Incentive spirometry Q 1hr while awake. Wean down oxygen as tolerated. Pt can go home when back to her baseline oxygen status or 4 L NC. Pulmonary embolism DC heparin gtt. Start Eliquis. Morbid obesity lifestyle modifications COPD Inhalers Q4 and Q2prn Full code Disposition Home tomorrow.
[2021-05-15] MEDS: Dexamethasone 4 MG Tab PO SCH (20:08)
[2021-05-16] MEDS: Albuterol/Ipratropium 3.0-0.5 MG/3 ML Neb Soln NEB SCH ×3 (02:08→11:12)
[2021-05-16 07:56] VITALS: BP 119/71; PULSE 86
[2021-05-16] MEDS: Azithromycin 250 MG Tab PO SCH (08:01)
[2021-05-16] MEDS: Apixaban 5 MG Tab PO SCH (08:01)
[2021-05-16] MEDS: Pantoprazole 40 MG Tab.CR PO SCH (08:01)
[2021-05-16] MEDS: Multivitamin Tab PO SCH (08:01)
[2021-05-16] MEDS: Fluticasone/Umeclidin/Vilanter [Trelegy Ellipta 100-62.5-25 Mcg] INH SCH (08:02)
[2021-05-16] MEDS: Cholecalciferol (Vitamin D3) 25 MCG Tab PO SCH (08:03)
[2021-05-16] MEDS: Lisinopril 10 MG Tab PO SCH (08:03)
== END 2021-05-16 11:41 | disposition home or self-care (01) | DRG 177 ==
LOC: MW.ED 17:39 → MW.MS 19:52
PROVIDERS: ADMIT Internal Medicine; ATTEND Internal Medicine
PROC: XW033E5 Introduction of Remdesivir Anti-infective into Peripheral Vein, Percutaneous Approach, New Technology Group 5 (ICD-10-PCS; principal; 2021-05-10)
PROC: 3E0333Z Introduction of Anti-inflammatory into Peripheral Vein, Percutaneous Approach (ICD-10-PCS; 2021-05-10)
PROC: 8E0ZXY6 Isolation (ICD-10-PCS; 2021-05-10)
PROC: 3E0DX3Z Introduction of Anti-inflammatory into Mouth and Pharynx, External Approach (ICD-10-PCS; 2021-05-14)
DX: U07.1 COVID-19 (principal); J12.82 Pneumonia due to coronavirus disease 2019; J96.01 Acute respiratory failure with hypoxia; I26.99 Other pulmonary embolism without acute cor pulmonale; H54.7 Unspecified visual loss; E78.00 Pure hypercholesterolemia, unspecified; I10 Essential (primary) hypertension; J44.9 Chronic obstructive pulmonary disease, unspecified; G47.30 Sleep apnea, unspecified; G89.29 Other chronic pain; M54.9 Dorsalgia, unspecified; Z90.89 Acquired absence of other organs; Z90.49 Acquired absence of other specified parts of digestive tract; Z88.1 Allergy status to other antibiotic agents; Z88.5 Allergy status to narcotic agent; Z79.899 Other long term (current) drug therapy; Z79.82 Long term (current) use of aspirin; Z98.51 Tubal ligation status; E66.01 Morbid (severe) obesity due to excess calories; Z68.36 Body mass index [BMI] 36.0-36.9, adult
CPT/HCPCS: 0240U; 36415; 71045; 71045-26; 71275; 71275-26; 80053; 80202; 81001; 82248; 83605; 83735; 83880; 84484; 85025; 85379; 85610; 85730; 87040; 93005; 94640; 99285-25; A9270-GY; J0456; J1100; J1644; J2543; J3370; J7050; J7620-GY; J8540; Q9967

== ENCOUNTER 2021-07-13 13:55 | Emergency (ER) | payer OTHER ==
[2021-07-13] MEDS ORDERED: Albuterol/Ipratropium 3.0-0.5 MG/3 ML Neb Soln NEB ONE (15:24)
[2021-07-13] MEDS ORDERED: Sodium Chloride 0.9% 10 ML Syringe FLUSH PRN (15:24)
[2021-07-13] MEDS ORDERED: methylPREDNISolone Sodium Succinate 125 MG/2 ML SDV IVPUSH ONE (15:24)
[2021-07-13] MEDS ORDERED: Sodium Chloride 0.9% 2.5 ML Syringe FLUSH PRN (15:24)
[2021-07-13 16:28] LABS: BLOOD UREA NITROGEN,BUN 8 mg/dL (7.0-18.0); CARBON DIOXIDE,CO2 43.2 mmol/L (21.0-32.0); CHLORIDE,CL 102 mmol/L (98-107); GLUCOSE RANDOM 118 mg/dL (74-106); POTASSIUM,K 4.4 mmol/L (3.5-5.1); SODIUM,NA 144 mmol/L (136-145)
[2021-07-13] MEDS ORDERED: Azithromycin 250 MG Tab PO STA (16:42)
[2021-07-13 17:44] VITALS: BP 115/55; PULSE 101
== END 2021-07-13 17:43 | disposition home or self-care (01) ==
LOC: MW.ED 13:55
DX: J18.9 Pneumonia, unspecified organism (principal); J98.11 Atelectasis; I11.0 Hypertensive heart disease with heart failure; I50.9 Heart failure, unspecified; J44.9 Chronic obstructive pulmonary disease, unspecified; E66.9 Obesity, unspecified; Z68.37 Body mass index [BMI] 37.0-37.9, adult; Z88.1 Allergy status to other antibiotic agents; Z88.8 Allergy status to other drugs, medicaments and biological substances; Z88.5 Allergy status to narcotic agent; Z79.82 Long term (current) use of aspirin; Z79.01 Long term (current) use of anticoagulants; Z79.899 Other long term (current) drug therapy
CPT/HCPCS: 36415; 71045; 80048; 85025; 96374; 99283; A9270; J2930; J7620-GY

== ENCOUNTER 2021-07-15 13:45 | Inpatient (IN) | payer OTHER ==
[2021-07-15] MEDS ORDERED: methylPREDNISolone Sodium Succinate 125 MG/2 ML SDV IVPUSH ONE (15:57)
[2021-07-15] MEDS ORDERED: Albuterol/Ipratropium 3.0-0.5 MG/3 ML Neb Soln NEB ONE ×4 (15:57→20:04)
[2021-07-15 17:09] LABS: BLOOD UREA NITROGEN,BUN 13 mg/dL (7.0-18.0); CHLORIDE,CL 100 mmol/L (98-107); GLUCOSE RANDOM 87 mg/dL (74-106); SODIUM,NA 147 mmol/L (136-145)
[2021-07-15 17:19] LABS: CARBON DIOXIDE,CO2 48.8 mmol/L (21.0-32.0)
[2021-07-15] MEDS ORDERED: Ketorolac 30 MG/ML SDV IVPUSH ONE (21:12)
[2021-07-15] MEDS ORDERED: Iopamidol 755 MG/ML 500 ML Multipack Bottle IVPUSH STA (22:20)
[2021-07-15] MEDS ORDERED: cefTRIAXone 2 GM in Premix Bag 1 BAG IV ONE (22:49)
[2021-07-15] MEDS ORDERED: Azithromycin 500 MG in Sodium Chloride 0.9% 250 ML IV SCH (23:00)
[2021-07-16] MEDS ORDERED: Heparin Sodium 5,000 Units/ML Vial SUBCUT SCH (01:45)
[2021-07-16] MEDS ORDERED: methylPREDNISolone Sodium Succinate 40 MG/1 ML SDV IVPUSH SCH (01:45)
[2021-07-16] MEDS ORDERED: Albuterol/Ipratropium 3.0-0.5 MG/3 ML Neb Soln NEB PRN (06:00)
[2021-07-16] MEDS: Azithromycin 500 MG in Sodium Chloride 0.9% 250 ML IV SCH (06:49)
[2021-07-16] MEDS: methylPREDNISolone Sodium Succinate 40 MG/1 ML SDV IVPUSH SCH ×2 (08:49→17:31)
[2021-07-16] MEDS: Heparin Sodium 5,000 Units/ML Vial SUBCUT SCH ×2 (08:52→10:33)
[2021-07-16 10:16] LABS: BLOOD UREA NITROGEN,BUN 11 mg/dL (7.0-18.0); CHLORIDE,CL 101 mmol/L (98-107); GLUCOSE RANDOM 83 mg/dL (74-106); POTASSIUM,K 4.6 mmol/L (3.5-5.1); SODIUM,NA 143 mmol/L (136-145)
[2021-07-16] MEDS ORDERED: Methocarbamol 750 MG TAB PO SCH (14:00)
[2021-07-16] MEDS ORDERED: Lisinopril 10 MG Tab PO SCH (14:00)
[2021-07-16] MEDS ORDERED: Pantoprazole 40 MG in Sodium Chloride 0.9% 10 ML IVPUSH SCH (14:00)
[2021-07-16] MEDS: Furosemide 40 MG Tab PO SCH (14:46)
[2021-07-16] MEDS: Aspirin 81 MG Tab.EC PO SCH (14:46)
[2021-07-16] MEDS: Albuterol/Ipratropium 3.0-0.5 MG/3 ML Neb Soln NEB SCH ×3 (16:49→21:12)
[2021-07-16] MEDS ORDERED: Melatonin 3 MG Tab PO PRN (21:00)
[2021-07-16] MEDS ORDERED: Montelukast 10 MG Tab PO SCH (21:00)
[2021-07-16] MEDS ORDERED: Apixaban 5 MG Tab PO SCH (21:00)
[2021-07-16] MEDS ORDERED: cefTRIAXone 1 GM in Sodium Chloride 0.9% 50 ML IV SCH (22:00)
[2021-07-17] MEDS: Albuterol/Ipratropium 3.0-0.5 MG/3 ML Neb Soln NEB SCH ×3 (01:35→09:46)
[2021-07-17] MEDS: methylPREDNISolone Sodium Succinate 40 MG/1 ML SDV IVPUSH SCH ×2 (01:35→08:54)
[2021-07-17 07:55] LABS: BLOOD UREA NITROGEN,BUN 11 mg/dL (7.0-18.0); CARBON DIOXIDE,CO2 42.6 mmol/L (21.0-32.0); CHLORIDE,CL 98 mmol/L (98-107); GLUCOSE RANDOM 131 mg/dL (74-106); POTASSIUM,K 4.9 mmol/L (3.5-5.1); SODIUM,NA 142 mmol/L (136-145)
[2021-07-17] MEDS: Aspirin 81 MG Tab.EC PO SCH (08:48)
[2021-07-17] MEDS: Furosemide 40 MG Tab PO SCH (08:54)
[2021-07-17] MEDS: Azithromycin 500 MG in Sodium Chloride 0.9% 250 ML IV SCH (08:55)
[2021-07-17 08:59] VITALS: BP 113/72; PULSE 78
[2021-07-17] MEDS ORDERED: Apixaban 5 MG Tab PO SCH (09:00)
[2021-07-17] MEDS ORDERED: Lisinopril 10 MG Tab PO SCH (09:00)
[2021-07-17] MEDS ORDERED: Cetirizine 10 MG Tab PO SCH (09:00)
[2021-07-17] MEDS ORDERED: Montelukast 10 MG Tab PO SCH (21:00)
== END 2021-07-17 14:50 | disposition home or self-care (01) | DRG 193 ==
LOC: MW.ED 13:45 → MW.MS 23:24
PROVIDERS: ADMIT Student in an Organized Health Care Education/Training Program; ATTEND Student in an Organized Health Care Education/Training Program
DX: J18.9 Pneumonia, unspecified organism (principal); J96.22 Acute and chronic respiratory failure with hypercapnia; J44.1 Chronic obstructive pulmonary disease with (acute) exacerbation; J44.0 Chronic obstructive pulmonary disease with (acute) lower respiratory infection; J98.11 Atelectasis; E87.0 Hyperosmolality and hypernatremia; E66.01 Morbid (severe) obesity due to excess calories; G47.33 Obstructive sleep apnea (adult) (pediatric); Z20.822 Contact with and (suspected) exposure to COVID-19; H54.7 Unspecified visual loss; E78.00 Pure hypercholesterolemia, unspecified; I11.0 Hypertensive heart disease with heart failure; I50.9 Heart failure, unspecified; E78.5 Hyperlipidemia, unspecified; Z88.1 Allergy status to other antibiotic agents; Z88.5 Allergy status to narcotic agent; Z79.82 Long term (current) use of aspirin; Z79.52 Long term (current) use of systemic steroids; Z79.899 Other long term (current) drug therapy; Z87.891 Personal history of nicotine dependence
CPT/HCPCS: 36415; 36600; 71045; 71045-26; 71275; 71275-26; 80053; 82803; 83605; 83735; 84100; 84484; 85025; 87040; 93005; 94640; 94660; 96374; 99285-25; A9270-GY; C9113; J0456; J0696; J1644; J1885; J2920; J2930; J7050; J7620-GY; Q9967; U0002

== ENCOUNTER 2021-08-09 00:55 | Inpatient (IN) | payer OTHER ==
[2021-08-09] MEDS ORDERED: Albuterol/Ipratropium 3.0-0.5 MG/3 ML Neb Soln ONE (00:59)
[2021-08-09] MEDS ORDERED: Aspirin 81 MG Tab.Chew PO ONE (01:01)
[2021-08-09] MEDS ORDERED: Albuterol/Ipratropium 3.0-0.5 MG/3 ML Neb Soln NEB STA (01:01)
[2021-08-09] MEDS ORDERED: methylPREDNISolone Sodium Succinate 40 MG/1 ML SDV IVPUSH ONE ×2 (01:02→15:00)
[2021-08-09 01:44] LABS: BLOOD UREA NITROGEN,BUN 8 mg/dL (7.0-18.0); CARBON DIOXIDE,CO2 39.4 mmol/L (21.0-32.0); CHLORIDE,CL 101 mmol/L (98-107); GLUCOSE RANDOM 157 mg/dL (74-106); POTASSIUM,K 4.7 mmol/L (3.5-5.1); SODIUM,NA 141 mmol/L (136-145)
[2021-08-09 01:48] LABS: CORONAVIRUS COVID-19 NAA NEGATIVE (NEGATIVE); INFLUENZA A NAA NEGATIVE (NEGATIVE); INFLUENZA B NAA NEGATIVE (NEGATIVE)
[2021-08-09] MEDS ORDERED: Albuterol/Ipratropium 3.0-0.5 MG/3 ML Neb Soln NEB ONE ×2 (02:57→04:24)
[2021-08-09] MEDS ORDERED: Azithromycin 500 MG in Sodium Chloride 0.9% 250 ML IV SCH (05:30)
[2021-08-09] MEDS ORDERED: Magnesium Sulfate/Water 2 GM in Premix Bag 1 BAG IV ONE (07:51)
[2021-08-09] MEDS ORDERED: methylPREDNISolone Sodium Succinate 40 MG/1 ML SDV IVPUSH SCH (10:00)
[2021-08-09] MEDS: Apixaban 5 MG Tab PO SCH ×2 (10:11→20:22)
[2021-08-09] MEDS: Levofloxacin/Dextrose 5%-Water 750 MG in Premix Bag 1 BAG IV SCH (10:14)
[2021-08-09] MEDS: Pantoprazole 40 MG in Sodium Chloride 0.9% 10 ML IVPUSH SCH (11:56)
[2021-08-09] MEDS: Furosemide 40 MG Tab PO SCH ×2 (12:01→12:33)
[2021-08-09] MEDS ORDERED: Ibuprofen 200 MG Tab PO ONE (18:43)
[2021-08-09] MEDS: Albuterol/Ipratropium 3.0-0.5 MG/3 ML Neb Soln NEB PRN (22:42)
[2021-08-10] MEDS: Acetaminophen 325 MG Tab PO PRN ×2 (05:58→12:00)
[2021-08-10] MEDS: Albuterol/Ipratropium 3.0-0.5 MG/3 ML Neb Soln NEB PRN ×4 (05:58→19:48)
[2021-08-10 06:56] LABS: BLOOD UREA NITROGEN,BUN 12 mg/dL (7.0-18.0); CHLORIDE,CL 100 mmol/L (98-107); GLUCOSE RANDOM 99 mg/dL (74-106); POTASSIUM,K 5.1 mmol/L (3.5-5.1); SODIUM,NA 141 mmol/L (136-145)
[2021-08-10 07:10] LABS: CARBON DIOXIDE,CO2 48.8 mmol/L (21.0-32.0)
[2021-08-10] MEDS ORDERED: Azithromycin 500 MG in Sodium Chloride 0.9% 250 ML IV SCH (08:00)
[2021-08-10] MEDS: Furosemide 40 MG Tab PO SCH (08:23)
[2021-08-10] MEDS: methylPREDNISolone Sodium Succinate 40 MG/1 ML SDV IVPUSH SCH ×2 (08:23→20:21)
[2021-08-10] MEDS: Apixaban 5 MG Tab PO SCH ×2 (08:24→20:21)
[2021-08-10] MEDS ORDERED: methylPREDNISolone Sodium Succinate 40 MG/1 ML SDV IVPUSH SCH (09:00)
[2021-08-10] MEDS: Levofloxacin/Dextrose 5%-Water 750 MG in Premix Bag 1 BAG IV SCH (09:28)
[2021-08-10] MEDS: Pantoprazole 40 MG in Sodium Chloride 0.9% 10 ML IVPUSH SCH (09:33)
[2021-08-11 06:48] LABS: BLOOD UREA NITROGEN,BUN 16 mg/dL (7.0-18.0); CHLORIDE,CL 94 mmol/L (98-107); GLUCOSE RANDOM 120 mg/dL (74-106); POTASSIUM,K 4.9 mmol/L (3.5-5.1); SODIUM,NA 141 mmol/L (136-145)
[2021-08-11 06:54] LABS: CARBON DIOXIDE,CO2 50.4 mmol/L (21.0-32.0)
[2021-08-11] MEDS: Furosemide 40 MG Tab PO SCH (09:07)
[2021-08-11] MEDS: methylPREDNISolone Sodium Succinate 40 MG/1 ML SDV IVPUSH SCH ×2 (09:07→21:07)
[2021-08-11] MEDS: Apixaban 5 MG Tab PO SCH ×2 (09:07→21:07)
[2021-08-11] MEDS: Levofloxacin/Dextrose 5%-Water 750 MG in Premix Bag 1 BAG IV SCH (09:34)
[2021-08-11] MEDS: Pantoprazole 40 MG in Sodium Chloride 0.9% 10 ML IVPUSH SCH (09:35)
[2021-08-11] MEDS ORDERED: Ibuprofen 200 MG Tab PO ONE (12:05)
[2021-08-11] MEDS ORDERED: Magnesium Oxide 400 MG Tab PO ONE (14:32)
[2021-08-11] MEDS: Albuterol/Ipratropium 3.0-0.5 MG/3 ML Neb Soln NEB PRN (21:28)
[2021-08-12 06:26] LABS: BLOOD UREA NITROGEN,BUN 22 mg/dL (7.0-18.0); CHLORIDE,CL 97 mmol/L (98-107); GLUCOSE RANDOM 131 mg/dL (74-106); SODIUM,NA 140 mmol/L (136-145)
[2021-08-12] MEDS: Furosemide 40 MG Tab PO SCH (09:30)
[2021-08-12] MEDS: methylPREDNISolone Sodium Succinate 40 MG/1 ML SDV IVPUSH SCH (09:30)
[2021-08-12] MEDS: Pantoprazole 40 MG in Sodium Chloride 0.9% 10 ML IVPUSH SCH (09:30)
[2021-08-12] MEDS: Levofloxacin/Dextrose 5%-Water 750 MG in Premix Bag 1 BAG IV SCH (09:30)
[2021-08-12] MEDS: Apixaban 5 MG Tab PO SCH ×2 (09:30→20:36)
[2021-08-12] MEDS: Fluticasone/Umeclidin/Vilanter [Trelegy Ellipta 100-62.5- INH SCH (09:59)
[2021-08-12] MEDS ORDERED: Levofloxacin 750 MG Tab PO SCH (19:30)
[2021-08-12] MEDS ORDERED: diphenhydrAMINE 25 MG Cap PO PRN (20:11)
[2021-08-12] MEDS ORDERED: Levofloxacin 500 MG Tab PO ONE (20:30)
[2021-08-13] MEDS: Acetaminophen 325 MG Tab PO PRN (04:54)
[2021-08-13 06:50] LABS: BLOOD UREA NITROGEN,BUN 21 mg/dL (7.0-18.0); CHLORIDE,CL 97 mmol/L (98-107); GLUCOSE RANDOM 88 mg/dL (74-106); POTASSIUM,K 4.7 mmol/L (3.5-5.1); SODIUM,NA 144 mmol/L (136-145)
[2021-08-13 06:54] LABS: CARBON DIOXIDE,CO2 46.5 mmol/L (21.0-32.0)
[2021-08-13] MEDS ORDERED: methylPREDNISolone Sodium Succinate 40 MG/1 ML SDV IVPUSH SCH (09:00)
[2021-08-13] MEDS: Apixaban 5 MG Tab PO SCH (09:32)
[2021-08-13] MEDS: Furosemide 40 MG Tab PO SCH (09:32)
[2021-08-13] MEDS: Fluticasone/Umeclidin/Vilanter [Trelegy Ellipta 100-62.5- INH SCH (09:34)
[2021-08-13] MEDS: Pantoprazole 40 MG in Sodium Chloride 0.9% 10 ML IVPUSH SCH (10:28)
[2021-08-13] MEDS ORDERED: Levofloxacin 750 MG Tab PO SCH (11:45)
[2021-08-13 11:54] VITALS: BP 125/80; PULSE 62
[2021-08-13] MEDS ORDERED: Levofloxacin 500 MG Tab PO ONE (15:22)
== END 2021-08-13 16:15 | disposition home or self-care (01) | DRG 189 ==
LOC: MW.ED 00:55 → MW.ICU 05:27 → MW.MS 08-12 08:11
PROVIDERS: ADMIT Internal Medicine; ATTEND Internal Medicine
DX: J96.21 Acute and chronic respiratory failure with hypoxia (principal); J44.1 Chronic obstructive pulmonary disease with (acute) exacerbation; E87.2 Acidosis; G47.33 Obstructive sleep apnea (adult) (pediatric); J96.22 Acute and chronic respiratory failure with hypercapnia; I50.9 Heart failure, unspecified; Z20.822 Contact with and (suspected) exposure to COVID-19; E78.5 Hyperlipidemia, unspecified; J44.9 Chronic obstructive pulmonary disease, unspecified; I11.0 Hypertensive heart disease with heart failure; E66.9 Obesity, unspecified; Z68.30 Body mass index [BMI] 30.0-30.9, adult; Z99.81 Dependence on supplemental oxygen; Z86.711 Personal history of pulmonary embolism; Z79.01 Long term (current) use of anticoagulants; Z79.82 Long term (current) use of aspirin; Z79.899 Other long term (current) drug therapy; Z97.3 Presence of spectacles and contact lenses; Z90.89 Acquired absence of other organs; Z90.49 Acquired absence of other specified parts of digestive tract; Z86.16 Personal history of COVID-19; Z98.51 Tubal ligation status
CPT/HCPCS: 0240U; 36415; 71045; 71045-26; 80048; 80053; 82803; 83605; 83735; 83880; 84100; 84484; 85025; 85610; 87040; 93005; 94640; 94660; 96374; 99291; A9270-GY; C9113; J0456; J1956; J2920; J3475; J7050; J7620-GY

== ENCOUNTER 2022-03-30 03:30 | Inpatient (IN) | payer OTHER ==
[2022-03-30] MEDS ORDERED: Albuterol/Ipratropium 3.0-0.5 MG/3 ML Neb Soln INH ONE ×3 (04:20→18:00)
[2022-03-30] MEDS ORDERED: Levofloxacin/Dextrose 5%-Water 150 ML IV ONE (09:40)
[2022-03-30] MEDS ORDERED: Pantoprazole 40 MG in Sodium Chloride 0.9% 10 ML IV ONE (09:40)
[2022-03-30] MEDS ORDERED: methylPREDNISolone Sodium Succinate 40 MG/1 ML SDV IVPUSH ONE (16:30)
[2022-03-31] MEDS ORDERED: methylPREDNISolone Sodium Succinate 40 MG/1 ML SDV IVPUSH ONE (04:30)
[2022-03-31] MEDS ORDERED: Albuterol/Ipratropium 3.0-0.5 MG/3 ML Neb Soln INH ONE ×3 (06:00→12:00)
[2022-03-31] MEDS ORDERED: Enoxaparin 40 MG/0.4 ML Syringe SUBCUT ONE (09:00)
[2022-03-31] MEDS ORDERED: Pantoprazole 40 MG in Sodium Chloride 0.9% 10 ML IV ONE (09:00)
[2022-03-31] MEDS ORDERED: Levofloxacin/Dextrose 5%-Water 150 ML IV ONE (09:30)
[2022-03-31] MEDS ORDERED: Furosemide 40 MG Tab PO ONE (11:50)
[2022-04-17] MEDS ORDERED: Albuterol/Ipratropium 3.0-0.5 MG/3 ML Neb Soln INH ONE (04:20)
[2022-04-17] MEDS ORDERED: methylPREDNISolone Sodium Succinate 125 MG/2 ML SDV IV ONE (04:20)
[2022-05-08 05:36] LABS: BLOOD UREA NITROGEN,BUN 12 mg/dL (7.0-18.0); CARBON DIOXIDE,CO2 41.5 mmol/L (21.0-32.0); CHLORIDE,CL 97 mmol/L (98-107); ESTIMATED GFR 107 mL/min (>60); GLUCOSE RANDOM 127 mg/dL (74-106); POTASSIUM,K 4.7 mmol/L (3.5-5.1); SODIUM,NA 140 mmol/L (136-145)
== END 2022-03-31 13:38 | disposition home or self-care (01) | DRG 189 ==
LOC: MW.ED 03:30 → MW.ZCENSUS 05:35
PROVIDERS: ADMIT Internal Medicine; ATTEND Internal Medicine
DX: J96.21 Acute and chronic respiratory failure with hypoxia (principal); J44.1 Chronic obstructive pulmonary disease with (acute) exacerbation; J98.11 Atelectasis; Z99.81 Dependence on supplemental oxygen; G47.33 Obstructive sleep apnea (adult) (pediatric); Z20.822 Contact with and (suspected) exposure to COVID-19; I50.9 Heart failure, unspecified; Z79.899 Other long term (current) drug therapy; Z86.711 Personal history of pulmonary embolism; Z79.01 Long term (current) use of anticoagulants; Z88.1 Allergy status to other antibiotic agents; Z88.5 Allergy status to narcotic agent
CPT/HCPCS: 71045; 71045-26; 93005; 93010; 94640; 96365; 96366; 96372; 96375; 99283; 99285-25; A9270-GY; C9113; J1650; J1956; J2920; J2930; J3490; J7620-GY

== ENCOUNTER 2022-05-02 23:29 | Inpatient (IN) | payer OTHER ==
[2022-05-02] MEDS ORDERED: methylPREDNISolone Sodium Succinate 125 MG/2 ML SDV IVPUSH ONE (23:30)
[2022-05-02] MEDS ORDERED: Albuterol/Ipratropium 3.0-0.5 MG/3 ML Neb Soln NEB ONE (23:30)
[2022-05-02] MEDS ORDERED: Magnesium Sulfate/Water 2 GM in Premix Bag 1 BAG IV ONE (23:31)
[2022-05-02] MEDS ORDERED: Albuterol/Ipratropium 3.0-0.5 MG/3 ML Neb Soln ONE (23:33)
[2022-05-03 00:18] LABS: BLOOD UREA NITROGEN,BUN 17 mg/dL (7.0-18.0); CHLORIDE,CL 101 mmol/L (98-107); GLUCOSE RANDOM 105 mg/dL (74-106); POTASSIUM,K 5.3 mmol/L (3.5-5.1); SODIUM,NA 146 mmol/L (136-145)
[2022-05-03 00:19] LABS: CARBON DIOXIDE,CO2 45.1 mmol/L (21.0-32.0); ESTIMATED GFR 111 mL/min (>60)
[2022-05-03] MEDS ORDERED: Levofloxacin/Dextrose 5%-Water 750 MG in Premix Bag 1 BAG IV ONE (00:27)
[2022-05-03 00:55] LABS: CORONAVIRUS COVID-19 NAA NEGATIVE (NEGATIVE); INFLUENZA A NAA NEGATIVE (NEGATIVE); INFLUENZA B NAA NEGATIVE (NEGATIVE)
[2022-05-03] MEDS: Pantoprazole 40 MG in Sodium Chloride 0.9% 10 ML IVPUSH SCH (07:18)
[2022-05-03] MEDS: methylPREDNISolone Sodium Succinate 40 MG/1 ML SDV IVPUSH SCH ×3 (07:18→21:26)
[2022-05-03] MEDS: Furosemide 40 MG Tab PO SCH (08:33)
[2022-05-03] MEDS: Apixaban 5 MG Tab PO SCH ×2 (08:33→20:47)
[2022-05-03] MEDS: Albuterol/Ipratropium 3.0-0.5 MG/3 ML Neb Soln NEB SCH ×2 (12:00→17:30)
[2022-05-03] MEDS: Montelukast 10 MG Tab PO SCH (20:47)
[2022-05-04] MEDS: Albuterol/Ipratropium 3.0-0.5 MG/3 ML Neb Soln NEB SCH ×4 (00:59→17:55)
[2022-05-04] MEDS ORDERED: Levofloxacin/Dextrose 5%-Water 750 MG in Premix Bag 1 BAG IV SCH (02:00)
[2022-05-04] MEDS: Pantoprazole 40 MG in Sodium Chloride 0.9% 10 ML IVPUSH SCH (06:13)
[2022-05-04] MEDS: methylPREDNISolone Sodium Succinate 40 MG/1 ML SDV IVPUSH SCH ×3 (06:13→21:16)
[2022-05-04 07:08] LABS: BLOOD UREA NITROGEN,BUN 20 mg/dL (7.0-18.0); CHLORIDE,CL 96 mmol/L (98-107); GLUCOSE RANDOM 122 mg/dL (74-106); POTASSIUM,K 4.9 mmol/L (3.5-5.1); SODIUM,NA 143 mmol/L (136-145)
[2022-05-04 07:09] LABS: ESTIMATED GFR 111 mL/min (>60)
[2022-05-04 07:25] LABS: CARBON DIOXIDE,CO2 47.1 mmol/L (21.0-32.0)
[2022-05-04] MEDS: Furosemide 40 MG Tab PO SCH (10:14)
[2022-05-04] MEDS: Apixaban 5 MG Tab PO SCH (10:15)
[2022-05-04] MEDS ORDERED: Iopamidol 755 MG/ML 500 ML Multipack Bottle IVPUSH STA (11:11)
[2022-05-04] MEDS: Azithromycin 500 MG in Sodium Chloride 0.9% 250 ML IV SCH (12:18)
[2022-05-04] MEDS: Enoxaparin 40 MG/0.4 ML Syringe SUBCUT SCH (19:21)
[2022-05-04] MEDS: Montelukast 10 MG Tab PO SCH (20:36)
[2022-05-05] MEDS: Albuterol/Ipratropium 3.0-0.5 MG/3 ML Neb Soln NEB SCH ×4 (00:32→17:39)
[2022-05-05 05:56] LABS: POTASSIUM,K 4.7 mmol/L (3.5-5.1)
[2022-05-05] MEDS: Pantoprazole 40 MG in Sodium Chloride 0.9% 10 ML IVPUSH SCH (06:02)
[2022-05-05] MEDS: methylPREDNISolone Sodium Succinate 40 MG/1 ML SDV IVPUSH SCH ×3 (06:02→21:38)
[2022-05-05 06:03] LABS: CARBON DIOXIDE,CO2 47.1 mmol/L (21.0-32.0)
[2022-05-05] MEDS ORDERED: Sodium Chloride 0.9% 2.5 ML Syringe FLUSH PRN (09:19)
[2022-05-05] MEDS ORDERED: Sodium Chloride 0.9% 10 ML Syringe FLUSH PRN (09:19)
[2022-05-05] MEDS: Furosemide 40 MG Tab PO SCH (09:36)
[2022-05-05] MEDS: UMECLIDIN INH SCH (09:39)
[2022-05-05] MEDS: FLUTICASONE INH SCH (09:39)
[2022-05-05] MEDS: VILANTER INH SCH (09:39)
[2022-05-05] MEDS: Azithromycin 500 MG in Sodium Chloride 0.9% 250 ML IV SCH (11:50)
[2022-05-05] MEDS: Enoxaparin 40 MG/0.4 ML Syringe SUBCUT SCH (19:14)
[2022-05-05] MEDS: Montelukast 10 MG Tab PO SCH (20:11)
[2022-05-06] MEDS: Albuterol/Ipratropium 3.0-0.5 MG/3 ML Neb Soln NEB SCH ×5 (00:09→23:55)
[2022-05-06] MEDS: methylPREDNISolone Sodium Succinate 40 MG/1 ML SDV IVPUSH SCH ×2 (05:32→18:33)
[2022-05-06 06:29] LABS: CARBON DIOXIDE,CO2 41.6 mmol/L (21.0-32.0); POTASSIUM,K 4.4 mmol/L (3.5-5.1)
[2022-05-06] MEDS: Pantoprazole 40 MG Tab.CR PO SCH (06:53)
[2022-05-06] MEDS: Furosemide 40 MG Tab PO SCH (09:09)
[2022-05-06] MEDS: VILANTER INH SCH (09:09)
[2022-05-06] MEDS: UMECLIDIN INH SCH (09:09)
[2022-05-06] MEDS: FLUTICASONE INH SCH (09:09)
[2022-05-06] MEDS: Lisinopril 10 MG Tab PO SCH (10:24)
[2022-05-06] MEDS: Azithromycin 250 MG Tab PO SCH (10:25)
[2022-05-06] MEDS: Enoxaparin 40 MG/0.4 ML Syringe SUBCUT SCH (18:33)
[2022-05-06] MEDS: Montelukast 10 MG Tab PO SCH (21:01)
[2022-05-07] MEDS: Pantoprazole 40 MG Tab.CR PO SCH (06:36)
[2022-05-07] MEDS: methylPREDNISolone Sodium Succinate 40 MG/1 ML SDV IVPUSH SCH (06:37)
[2022-05-07] MEDS: Albuterol/Ipratropium 3.0-0.5 MG/3 ML Neb Soln NEB SCH ×2 (07:08→13:38)
[2022-05-07 07:56] LABS: CARBON DIOXIDE,CO2 38.9 mmol/L (21.0-32.0); POTASSIUM,K 4.2 mmol/L (3.5-5.1)
[2022-05-07] MEDS: Azithromycin 250 MG Tab PO SCH (09:26)
[2022-05-07] MEDS: Lisinopril 10 MG Tab PO SCH (09:26)
[2022-05-07] MEDS: UMECLIDIN INH SCH (09:31)
[2022-05-07] MEDS: VILANTER INH SCH (09:31)
[2022-05-07] MEDS: Furosemide 40 MG Tab PO SCH (09:31)
[2022-05-07] MEDS: FLUTICASONE INH SCH (09:31)
[2022-05-07 12:10] VITALS: BP 126/70; PULSE 89
== END 2022-05-07 14:00 | disposition home or self-care (01) | DRG 189 ==
LOC: MW.ED 23:29 → MW.ICU 05-03 00:44 → MW.ED 05-03 01:55 → MW.MS 05-06 13:01
PROVIDERS: ADMIT Internal Medicine; ATTEND Internal Medicine
PROC: 5A09457 Assistance with Respiratory Ventilation, 24-96 Consecutive Hours, Continuous Positive Airway Pressure (ICD-10-PCS; principal; 2022-05-03)
DX: J96.21 Acute and chronic respiratory failure with hypoxia (principal); J44.1 Chronic obstructive pulmonary disease with (acute) exacerbation; J96.22 Acute and chronic respiratory failure with hypercapnia; I50.9 Heart failure, unspecified; I11.0 Hypertensive heart disease with heart failure; G47.33 Obstructive sleep apnea (adult) (pediatric); E66.9 Obesity, unspecified; E78.5 Hyperlipidemia, unspecified; H54.7 Unspecified visual loss; E78.00 Pure hypercholesterolemia, unspecified; G89.29 Other chronic pain; Z20.822 Contact with and (suspected) exposure to COVID-19; M54.9 Dorsalgia, unspecified; Z99.81 Dependence on supplemental oxygen; Z79.899 Other long term (current) drug therapy; Z88.1 Allergy status to other antibiotic agents; Z88.8 Allergy status to other drugs, medicaments and biological substances; Z88.5 Allergy status to narcotic agent; Z86.711 Personal history of pulmonary embolism; Z79.01 Long term (current) use of anticoagulants; Z86.16 Personal history of COVID-19; Z86.19 Personal history of other infectious and parasitic diseases; Z90.89 Acquired absence of other organs; Z90.49 Acquired absence of other specified parts of digestive tract; Z98.51 Tubal ligation status; Z98.890 Other specified postprocedural states; Z68.37 Body mass index [BMI] 37.0-37.9, adult
CPT/HCPCS: 0240U; 36415; 71045; 71045-26; 71275; 71275-26; 80048; 80053; 82803; 83735; 83880; 84484; 85025; 85027; 86140; 93005; 94640; 94660; 96365; 96367; 96375; 99285-25; A9270-GY; C9113; J0456; J1650; J1956; J2920; J2930; J3475; J3490; J7050; J7620-GY; Q9967

== ENCOUNTER 2022-05-23 17:53 | Inpatient (IN) | payer OTHER ==
[2022-05-23] MEDS ORDERED: Albuterol/Ipratropium 3.0-0.5 MG/3 ML Neb Soln NEB ONE (18:04)
[2022-05-23] MEDS ORDERED: methylPREDNISolone Sodium Succinate 125 MG/2 ML SDV IVPUSH ONE (18:05)
[2022-05-23 18:44] LABS: CARBON DIOXIDE,CO2 44.3 mmol/L (21.0-32.0); POTASSIUM,K 4.1 mmol/L (3.5-5.1)
[2022-05-23 19:05] LABS: CORONAVIRUS COVID-19 NAA NEGATIVE (NEGATIVE); INFLUENZA A NAA NEGATIVE (NEGATIVE); INFLUENZA B NAA NEGATIVE (NEGATIVE); RESPIRATORY SYNCYTIAL VIR NAA NEGATIVE (NEGATIVE)
[2022-05-23] MEDS ORDERED: Sodium Chloride 0.9% 1,000 ML IV ONE (19:44)
[2022-05-23] MEDS ORDERED: cefTRIAXone 2 GM in Sodium Chloride 0.9% 50 ML IV ONE (19:50)
[2022-05-23] MEDS ORDERED: Azithromycin 500 MG in Sodium Chloride 0.9% 250 ML IV ONE (19:51)
[2022-05-23 21:40] VITALS: PULSE 92
[2022-05-24] MEDS ORDERED: Levofloxacin/Dextrose 5%-Water 750 MG in Premix Bag 1 BAG IV SCH (00:30)
[2022-05-24] MEDS ORDERED: methylPREDNISolone Sodium Succinate 40 MG/1 ML SDV IVPUSH SCH (01:00)
[2022-05-24] MEDS ORDERED: Enoxaparin 40 MG/0.4 ML Syringe SUBCUT ONE (01:00)
[2022-05-24] MEDS ORDERED: VANCOmycin 1.25 GM/250 ML 250 ML IV SCH (01:00)
[2022-05-24] MEDS: Albuterol/Ipratropium 3.0-0.5 MG/3 ML Neb Soln NEB SCH ×2 (03:15→09:22)
[2022-05-24] MEDS ORDERED: fentaNYL/Normal Saline 2,500 MCG in Premix Bag 1 BAG IV PRN (05:09)
[2022-05-24] MEDS ORDERED: propofoL 100 ML ONE (05:09)
[2022-05-24] MEDS ORDERED: Midazolam 1 MG/ML 2 ML SDV ONE (05:23)
[2022-05-24] MEDS ORDERED: Rocuronium 100 MG/10 ML MDV IVPUSH ONE (05:30)
[2022-05-24] MEDS ORDERED: Etomidate 2 MG/ML 20 ML SDV IVPUSH ONE (05:30)
[2022-05-24] MEDS ORDERED: Pantoprazole 40 MG Tab.CR PO SCH (07:30)
[2022-05-24 09:18] VITALS: BP 104/74
[2022-05-24] MEDS ORDERED: Enoxaparin 40 MG/0.4 ML Syringe SUBCUT SCH (21:00)
[2022-05-24] MEDS ORDERED: Montelukast 10 MG Tab PO SCH (21:00)
== END 2022-05-24 06:59 | DRG 208 ==
LOC: MW.ED 17:53 → MW.ICU 20:38
PROVIDERS: ADMIT Internal Medicine; ATTEND Internal Medicine
PROC: 0BH17EZ Insertion of Endotracheal Airway into Trachea, Via Natural or Artificial Opening (ICD-10-PCS; principal; 2022-05-24)
PROC: 5A1935Z Respiratory Ventilation, Less than 24 Consecutive Hours (ICD-10-PCS; 2022-05-24)
PROC: 5A09357 Assistance with Respiratory Ventilation, Less than 24 Consecutive Hours, Continuous Positive Airway Pressure (ICD-10-PCS; 2022-05-24)
DX: J18.9 Pneumonia, unspecified organism (principal); J96.21 Acute and chronic respiratory failure with hypoxia; J96.22 Acute and chronic respiratory failure with hypercapnia; J44.1 Chronic obstructive pulmonary disease with (acute) exacerbation; J44.0 Chronic obstructive pulmonary disease with (acute) lower respiratory infection; I11.0 Hypertensive heart disease with heart failure; I50.9 Heart failure, unspecified; Z20.822 Contact with and (suspected) exposure to COVID-19; G47.33 Obstructive sleep apnea (adult) (pediatric); H54.7 Unspecified visual loss; E78.00 Pure hypercholesterolemia, unspecified; G89.29 Other chronic pain; M54.9 Dorsalgia, unspecified; E66.9 Obesity, unspecified; Z86.16 Personal history of COVID-19; Z79.899 Other long term (current) drug therapy; Z79.01 Long term (current) use of anticoagulants; Z88.1 Allergy status to other antibiotic agents; Z88.8 Allergy status to other drugs, medicaments and biological substances; Z86.711 Personal history of pulmonary embolism; Z88.5 Allergy status to narcotic agent; Z86.19 Personal history of other infectious and parasitic diseases; Z90.89 Acquired absence of other organs; Z90.49 Acquired absence of other specified parts of digestive tract; Z98.51 Tubal ligation status
CPT/HCPCS: 0241U; 36415; 36600; 71045; 71045-26; 80053; 82803; 83605; 85025; 87040; 94002; 94660; 96374; 96375; 99285-25; J0456; J0696; J1650; J1956; J2250; J2704; J2920; J2930; J3370; J3490; J7030; J7050; J7620-GY

== ENCOUNTER 2022-06-10 16:44 | Inpatient (IN) | payer OTHER ==
[2022-06-10] MEDS ORDERED: Sodium Chloride 0.9% 10 ML Syringe FLUSH PRN (16:46)
[2022-06-10] MEDS ORDERED: Sodium Chloride 0.9% 2.5 ML Syringe FLUSH PRN (16:46)
[2022-06-10] MEDS ORDERED: methylPREDNISolone Sodium Succinate 125 MG/2 ML SDV IVPUSH ONE (16:51)
[2022-06-10] MEDS ORDERED: Albuterol/Ipratropium 3.0-0.5 MG/3 ML Neb Soln ONE (16:51)
[2022-06-10] MEDS ORDERED: Albuterol/Ipratropium 3.0-0.5 MG/3 ML Neb Soln NEB ONE (16:51)
[2022-06-10 17:44] LABS: CARBON DIOXIDE,CO2 44.8 mmol/L (21.0-32.0); POTASSIUM,K 4.3 mmol/L (3.5-5.1)
[2022-06-10 17:54] LABS: CORONAVIRUS COVID-19 NAA NEGATIVE (NEGATIVE); INFLUENZA A NAA NEGATIVE (NEGATIVE); INFLUENZA B NAA NEGATIVE (NEGATIVE); RESPIRATORY SYNCYTIAL VIR NAA NEGATIVE (NEGATIVE)
[2022-06-10] MEDS ORDERED: Levofloxacin/Dextrose 5%-Water 750 MG in Premix Bag 1 BAG IV ONE (19:31)
[2022-06-10] MEDS ORDERED: VANCOmycin 2 GM/400 ML 400 ML IV ONE (21:00)
[2022-06-10] MEDS: Enoxaparin 40 MG/0.4 ML Syringe SUBCUT SCH (21:55)
[2022-06-10] MEDS: Albuterol/Ipratropium 3.0-0.5 MG/3 ML Neb Soln NEB SCH (22:28)
[2022-06-11] MEDS: Albuterol/Ipratropium 3.0-0.5 MG/3 ML Neb Soln NEB SCH ×6 (01:16→22:23)
[2022-06-11] MEDS: methylPREDNISolone Sodium Succinate 125 MG/2 ML SDV IVPUSH SCH ×3 (01:16→16:56)
[2022-06-11 08:43] LABS: CARBON DIOXIDE,CO2 43.3 mmol/L (21.0-32.0); POTASSIUM,K 4.5 mmol/L (3.5-5.1)
[2022-06-11] MEDS ORDERED: Sodium Chloride 0.9% 2.5 ML Syringe FLUSH PRN (13:36)
[2022-06-11] MEDS ORDERED: Sodium Chloride 0.9% 10 ML Syringe FLUSH PRN (13:36)
[2022-06-11] MEDS: Furosemide 40 MG Tab PO SCH (14:12)
[2022-06-11] MEDS: VANCOmycin 1.5 GM/300 ML 1.5 GM in Premix Bag 1 BAG IV SCH (14:13)
[2022-06-11] MEDS: Nystatin Topical Powder 15 GM Bottle TOP SCH ×2 (14:14→22:00)
[2022-06-11] MEDS: Montelukast 10 MG Tab PO SCH (20:20)
[2022-06-11] MEDS: Levofloxacin/Dextrose 5%-Water 750 MG in Premix Bag 1 BAG IV SCH (20:20)
[2022-06-11] MEDS: Enoxaparin 40 MG/0.4 ML Syringe SUBCUT SCH (20:33)
[2022-06-12] MEDS: methylPREDNISolone Sodium Succinate 125 MG/2 ML SDV IVPUSH SCH ×3 (01:16→17:24)
[2022-06-12] MEDS: Albuterol/Ipratropium 3.0-0.5 MG/3 ML Neb Soln NEB SCH ×6 (01:16→22:06)
[2022-06-12] MEDS: VANCOmycin 1.5 GM/300 ML 1.5 GM in Premix Bag 1 BAG IV SCH ×2 (01:16→13:15)
[2022-06-12] MEDS: Nystatin Topical Powder 15 GM Bottle TOP SCH ×4 (05:57→21:43)
[2022-06-12 06:02] LABS: CARBON DIOXIDE,CO2 40.9 mmol/L (21.0-32.0); POTASSIUM,K 4.1 mmol/L (3.5-5.1)
[2022-06-12] MEDS: Furosemide 40 MG Tab PO SCH (08:35)
[2022-06-12] MEDS: Lisinopril 10 MG Tab PO SCH ×2 (08:35→08:47)
[2022-06-12] MEDS: Fluticasone/Umeclidin/Vilanter [Trelegy Ellipta 100-62.5- INH SCH (08:47)
[2022-06-12] MEDS ORDERED: Benzonatate 100 MG Cap PO PRN (10:11)
[2022-06-12] MEDS: Enoxaparin 40 MG/0.4 ML Syringe SUBCUT SCH (20:56)
[2022-06-12] MEDS: Montelukast 10 MG Tab PO SCH (20:56)
[2022-06-12] MEDS: Levofloxacin/Dextrose 5%-Water 750 MG in Premix Bag 1 BAG IV SCH (20:57)
[2022-06-13] MEDS: methylPREDNISolone Sodium Succinate 125 MG/2 ML SDV IVPUSH SCH ×2 (01:04→08:46)
[2022-06-13] MEDS: VANCOmycin 1.5 GM/300 ML 1.5 GM in Premix Bag 1 BAG IV SCH (01:05)
[2022-06-13] MEDS: Albuterol/Ipratropium 3.0-0.5 MG/3 ML Neb Soln NEB SCH ×6 (01:13→21:24)
[2022-06-13] MEDS: Nystatin Topical Powder 15 GM Bottle TOP SCH ×3 (06:27→21:26)
[2022-06-13 06:31] LABS: CARBON DIOXIDE,CO2 36.2 mmol/L (21.0-32.0); POTASSIUM,K 4.4 mmol/L (3.5-5.1)
[2022-06-13] MEDS: Furosemide 40 MG Tab PO SCH (08:46)
[2022-06-13] MEDS: Fluticasone/Umeclidin/Vilanter [Trelegy Ellipta 100-62.5- INH SCH (09:09)
[2022-06-13] MEDS: Lisinopril 10 MG Tab PO SCH (09:09)
[2022-06-13] MEDS: Pantoprazole 40 MG Tab.CR PO SCH (13:25)
[2022-06-13] MEDS: Azithromycin 500 MG in Sodium Chloride 0.9% 250 ML IV SCH (18:27)
[2022-06-13] MEDS: Levofloxacin/Dextrose 5%-Water 750 MG in Premix Bag 1 BAG IV SCH (19:55)
[2022-06-13] MEDS: Enoxaparin 40 MG/0.4 ML Syringe SUBCUT SCH (21:24)
[2022-06-13] MEDS: Montelukast 10 MG Tab PO SCH (21:24)
[2022-06-14] MEDS: Albuterol/Ipratropium 3.0-0.5 MG/3 ML Neb Soln NEB SCH ×6 (01:02→21:10)
[2022-06-14] MEDS: Nystatin Topical Powder 15 GM Bottle TOP SCH ×3 (06:13→21:10)
[2022-06-14] MEDS: Pantoprazole 40 MG Tab.CR PO SCH (06:36)
[2022-06-14 07:05] LABS: CARBON DIOXIDE,CO2 34.5 mmol/L (21.0-32.0); POTASSIUM,K 3.9 mmol/L (3.5-5.1)
[2022-06-14] MEDS: predniSONE 20 MG Tab PO SCH (08:34)
[2022-06-14] MEDS: Furosemide 40 MG Tab PO SCH (08:34)
[2022-06-14] MEDS: Fluticasone/Umeclidin/Vilanter [Trelegy Ellipta 100-62.5- INH SCH (08:36)
[2022-06-14] MEDS: Azithromycin 500 MG in Sodium Chloride 0.9% 250 ML IV SCH (18:05)
[2022-06-14] MEDS: Levofloxacin/Dextrose 5%-Water 750 MG in Premix Bag 1 BAG IV SCH (19:51)
[2022-06-14] MEDS: Montelukast 10 MG Tab PO SCH (20:01)
[2022-06-14] MEDS: Enoxaparin 40 MG/0.4 ML Syringe SUBCUT SCH (21:09)
[2022-06-15] MEDS: Albuterol/Ipratropium 3.0-0.5 MG/3 ML Neb Soln NEB SCH ×3 (01:59→10:27)
[2022-06-15] MEDS: Nystatin Topical Powder 15 GM Bottle TOP SCH (06:40)
[2022-06-15] MEDS: Pantoprazole 40 MG Tab.CR PO SCH (06:40)
[2022-06-15] MEDS: predniSONE 20 MG Tab PO SCH (08:10)
[2022-06-15] MEDS: Furosemide 40 MG Tab PO SCH (08:10)
[2022-06-15] MEDS: Fluticasone/Umeclidin/Vilanter [Trelegy Ellipta 100-62.5- INH SCH (08:11)
[2022-06-15 12:52] VITALS: BP 140/92; PULSE 97
== END 2022-06-15 13:00 | disposition home or self-care (01) | DRG 189 ==
LOC: MW.ED 16:44 → MW.ICU 19:34 → MW.MS 06-14 14:10
PROVIDERS: ADMIT Internal Medicine; ATTEND Internal Medicine
PROC: 5A09457 Assistance with Respiratory Ventilation, 24-96 Consecutive Hours, Continuous Positive Airway Pressure (ICD-10-PCS; principal; 2022-06-10)
DX: J96.21 Acute and chronic respiratory failure with hypoxia (principal); J44.1 Chronic obstructive pulmonary disease with (acute) exacerbation; J96.22 Acute and chronic respiratory failure with hypercapnia; E78.00 Pure hypercholesterolemia, unspecified; H54.7 Unspecified visual loss; I11.0 Hypertensive heart disease with heart failure; I50.9 Heart failure, unspecified; M54.9 Dorsalgia, unspecified; G89.29 Other chronic pain; Z88.1 Allergy status to other antibiotic agents; Z88.5 Allergy status to narcotic agent; Z79.899 Other long term (current) drug therapy; Z87.01 Personal history of pneumonia (recurrent); Z86.16 Personal history of COVID-19; Z90.49 Acquired absence of other specified parts of digestive tract
CPT/HCPCS: 0241U; 36415; 36600; 51702; 71045; 71045-26; 80048; 80053; 80202; 81001; 82803; 83605; 83735; 83880; 84145; 84484; 85025; 87040; 93005; 94640; 94660; 96365; 96375; 99285-25; A9270-GY; J0456; J1650; J1956; J2930; J3370; J3490; J7050; J7620-GY

== ENCOUNTER 2022-08-01 12:52 | Inpatient (IN) | payer OTHER ==
[2022-08-01] MEDS ORDERED: Albuterol/Ipratropium 3.0-0.5 MG/3 ML Neb Soln NEB STA (13:43)
[2022-08-01] MEDS ORDERED: methylPREDNISolone Sodium Succinate 125 MG/2 ML SDV IVPUSH STA (13:52)
[2022-08-01 14:29] LABS: CARBON DIOXIDE,CO2 41.1 mmol/L (21.0-32.0)
[2022-08-01] MEDS ORDERED: Piperacillin/Tazobactam 3.375 GM in Sodium Chloride 0.9% 50 ML IV STA (14:36)
[2022-08-01 14:39] LABS: CORONAVIRUS COVID-19 NAA NEGATIVE (NEGATIVE); INFLUENZA A NAA NEGATIVE (NEGATIVE); INFLUENZA B NAA NEGATIVE (NEGATIVE)
[2022-08-01] MEDS ORDERED: Magnesium Sulfate/Water 2 GM in Premix Bag 1 BAG IV STA (14:39)
[2022-08-01] MEDS ORDERED: Iopamidol 755 MG/ML 500 ML Multipack Bottle IVPUSH ONE (15:25)
[2022-08-01] MEDS: Albuterol/Ipratropium 3.0-0.5 MG/3 ML Neb Soln NEB SCH (23:54)
[2022-08-01] MEDS: Levofloxacin/Dextrose 5%-Water 750 MG in Premix Bag 1 BAG IV SCH (23:57)
[2022-08-01] MEDS: Enoxaparin 40 MG/0.4 ML Syringe SUBCUT SCH (23:58)
[2022-08-01] MEDS: methylPREDNISolone Sodium Succinate 40 MG/1 ML SDV IVPUSH SCH (23:58)
[2022-08-02 05:59] LABS: CARBON DIOXIDE,CO2 43.8 mmol/L (21.0-32.0); POTASSIUM,K 5.3 mmol/L (3.5-5.1)
[2022-08-02] MEDS: Albuterol/Ipratropium 3.0-0.5 MG/3 ML Neb Soln NEB SCH ×4 (07:19→23:13)
[2022-08-02] MEDS: Lisinopril 10 MG Tab PO SCH (08:43)
[2022-08-02] MEDS: methylPREDNISolone Sodium Succinate 40 MG/1 ML SDV IVPUSH SCH ×2 (08:44→21:04)
[2022-08-02] MEDS: FLUTICASONE INH SCH (10:19)
[2022-08-02] MEDS: VILANTEROL INH SCH (10:19)
[2022-08-02] MEDS: UMECLIDINIUM INH SCH (10:19)
[2022-08-02] MEDS ORDERED: Montelukast 10 MG Tab PO SCH (21:00)
[2022-08-02] MEDS: Levofloxacin/Dextrose 5%-Water 750 MG in Premix Bag 1 BAG IV SCH (23:18)
[2022-08-02] MEDS: Enoxaparin 40 MG/0.4 ML Syringe SUBCUT SCH (23:23)
[2022-08-03 06:42] LABS: CARBON DIOXIDE,CO2 40.8 mmol/L (21.0-32.0); POTASSIUM,K 5.2 mmol/L (3.5-5.1)
[2022-08-03] MEDS: Albuterol/Ipratropium 3.0-0.5 MG/3 ML Neb Soln NEB SCH (07:08)
[2022-08-03 07:49] VITALS: BP 115/65; PULSE 96
[2022-08-03] MEDS: methylPREDNISolone Sodium Succinate 40 MG/1 ML SDV IVPUSH SCH (09:03)
[2022-08-03] MEDS: Lisinopril 10 MG Tab PO SCH (09:03)
[2022-08-03] MEDS: FLUTICASONE INH SCH (09:04)
[2022-08-03] MEDS: UMECLIDINIUM INH SCH (09:04)
[2022-08-03] MEDS: VILANTEROL INH SCH (09:04)
== END 2022-08-03 10:30 | disposition home or self-care (01) | DRG 189 ==
LOC: MW.ED 12:52 → MW.MS 17:42
PROVIDERS: ADMIT Internal Medicine; ATTEND Internal Medicine
DX: J96.01 Acute respiratory failure with hypoxia (principal); J44.1 Chronic obstructive pulmonary disease with (acute) exacerbation; I50.9 Heart failure, unspecified; E78.5 Hyperlipidemia, unspecified; I11.0 Hypertensive heart disease with heart failure; Z20.822 Contact with and (suspected) exposure to COVID-19; E78.2 Mixed hyperlipidemia; E78.00 Pure hypercholesterolemia, unspecified; E66.9 Obesity, unspecified; M54.9 Dorsalgia, unspecified; G89.29 Other chronic pain; Z79.899 Other long term (current) drug therapy; Z99.81 Dependence on supplemental oxygen; Z88.1 Allergy status to other antibiotic agents; Z88.5 Allergy status to narcotic agent; Z87.891 Personal history of nicotine dependence; Z90.49 Acquired absence of other specified parts of digestive tract; Z68.34 Body mass index [BMI] 34.0-34.9, adult
CPT/HCPCS: 0240U; 36415; 71045; 71045-26; 71275; 71275-26; 80048; 80053; 81001; 83605; 83735; 83880; 85025; 85379; 85610; 87040; 93005; 93010; 94640; 96365; 96368; 96375; 99221; 99231; 99238; 99284; 99285-25; A9270-GY; J1650; J1956; J2543; J2920; J2930; J3475; J7050; J7620-GY; Q9967

== ENCOUNTER 2023-01-22 05:34 | Inpatient (IN) | payer OTHER ==
[2023-01-22] MEDS ORDERED: methylPREDNISolone Sodium Succinate 125 MG/2 ML SDV IVPUSH ONE (05:37)
[2023-01-22] MEDS ORDERED: Albuterol/Ipratropium 3.0-0.5 MG/3 ML Neb Soln NEB ONE ×2 (05:37→09:36)
[2023-01-22 05:53] LABS: PCO2 VENOUS > 98 mmHG (41-51); PH,VENOUS 7.16 (7.31-7.41); PO2 VENOUS 37 mmHG
[2023-01-22] MEDS ORDERED: Azithromycin 500 MG in Sodium Chloride 0.9% 250 ML IV ONE (05:53)
[2023-01-22 06:16] LABS: BASOPHILS PERCENT AUTO 0.1 % (0.0-1.5); HEMATOCRIT 51.7 % (36.0-46.0); HEMOGLOBIN 15.4 g/dL (12.0-16.0); LYMPHOCYTES ABSOLUTE AUTO 0.6 K/uL (0.6-2.4); LYMPHOCYTES PERCENT AUTO 6.1 % (16.0-40.0); MEAN CORPUSCULAR HEMOGLOBIN 30.9 pg (27.0-32.0); MEAN CORPUSCULAR HGB CONC 29.8 g/dL (31.0-37.0); MEAN CORPUSCULAR VOLUME 103.6 fL (80.0-98.0); MONOCYTES PERCENT AUTO 10.1 % (0.0-15.0); NEUTROPHILS ABSOLUTE AUTO 7.9 K/uL (1.4-5.7); NEUTROPHILS PERCENT AUTO 83.7 % (48.0-80.0); NRBC ABSOLUTE 0 K/uL; PLATELET COUNT,PLT 272 K/uL (150-400); RED BLOOD CELL COUNT 4.99 M/uL (4.30-5.90); WHITE BLOOD CELL COUNT,WBC 9.39 K/uL (4.0-11.0)
[2023-01-22 06:34] LABS: LACTIC ACID 0.5 mmol/L (0.4-2.0)
[2023-01-22 06:50] LABS: BILIRUBIN TOTAL 0.2 mg/dL (0.2-1.0)
[2023-01-22 07:36] LABS: A/G RATIO 0.9 (0.9-1.6); ALBUMIN 3.3 g/dL (3.4-5.0); CALCIUM 8.6 mg/dL (8.5-10.1); CREATININE 0.5 mg/dL (0.6-1.0); EST CRCL DRUG DOSING (CG) 105.16 mL/min; POTASSIUM,K 5.7 mmol/L (3.5-5.1)
[2023-01-22 09:13] LABS: PCO2 VENOUS > 98 mmHG (41-51); PH,VENOUS 7.16 (7.31-7.41)
[2023-01-22 09:20] LABS: PO2 VENOUS < 30 mmHG
[2023-01-22] MEDS ORDERED: Albuterol/Ipratropium 3.0-0.5 MG/3 ML Neb Soln ONE (09:29)
[2023-01-22 10:45] LABS: PCO2 VENOUS > 98 mmHG (41-51); PH,VENOUS 7.22 (7.31-7.41); PO2 VENOUS 52 mmHG
[2023-01-22 13:09] LABS: PH,VENOUS 7.26 (7.31-7.41)
[2023-01-22] MEDS ORDERED: Iopamidol 755 Mg/ML 100 ML Bottle IVPUSH ONE (14:47)
[2023-01-22] MEDS ORDERED: Hydrocolloid Dressing 4x4 Bandage ONE (17:35)
[2023-01-22 18:17] LABS: BASE EXCESS VENOUS 13.4 (-2.0-3.0); PH,VENOUS 7.29 (7.31-7.41)
[2023-01-22] MEDS: methylPREDNISolone Sodium Succinate 40 MG/1 ML SDV IVPUSH SCH (21:47)
[2023-01-22] MEDS: Levofloxacin/Dextrose 5%-Water 750 MG in Premix Bag 1 BAG IV SCH (21:47)
[2023-01-22] MEDS: Enoxaparin 40 MG/0.4 ML Syringe SUBCUT SCH (21:47)
[2023-01-23] MEDS: Albuterol/Ipratropium 3.0-0.5 MG/3 ML Neb Soln NEB SCH ×5 (00:55→23:34)
[2023-01-23] MEDS: methylPREDNISolone Sodium Succinate 40 MG/1 ML SDV IVPUSH SCH ×4 (04:39→21:31)
[2023-01-23 06:16] LABS: HEMATOCRIT 44.2 % (36.0-46.0); HEMOGLOBIN 13.6 g/dL (12.0-16.0); LYMPHOCYTES ABSOLUTE AUTO 0.5 K/uL (0.6-2.4); LYMPHOCYTES PERCENT AUTO 9.7 % (16.0-40.0); MEAN CORPUSCULAR HGB CONC 30.8 g/dL (31.0-37.0); MEAN CORPUSCULAR VOLUME 100.7 fL (80.0-98.0); MONOCYTES ABSOLUTE AUTO 0.4 K/uL (0.0-0.8); MONOCYTES PERCENT AUTO 8.9 % (0.0-15.0); NEUTROPHILS PERCENT AUTO 81.4 % (48.0-80.0); NRBC ABSOLUTE 0 K/uL; PLATELET COUNT,PLT 209 K/uL (150-400); RED BLOOD CELL COUNT 4.39 M/uL (4.30-5.90); WHITE BLOOD CELL COUNT,WBC 4.85 K/uL (4.0-11.0)
[2023-01-23 06:48] LABS: A/G RATIO 0.9 (0.9-1.6); ALBUMIN 3.2 g/dL (3.4-5.0); BILIRUBIN TOTAL 0.2 mg/dL (0.2-1.0); CALCIUM 9.3 mg/dL (8.5-10.1); CREATININE 0.6 mg/dL (0.6-1.0); EST CRCL DRUG DOSING (CG) 87.64 mL/min; MAGNESIUM 1.9 mg/dL (1.8-2.4); PHOSPHORUS 3.8 mg/dL (2.6-4.7); POTASSIUM,K 5.5 mmol/L (3.5-5.1); PROTEIN TOTAL,TP 6.6 g/dL (6.4-8.2)
[2023-01-23] MEDS: Pantoprazole 40 MG in Sodium Chloride 0.9% 10 ML IVPUSH SCH (14:59)
[2023-01-23] MEDS: Enoxaparin 40 MG/0.4 ML Syringe SUBCUT SCH (18:49)
[2023-01-23] MEDS: Levofloxacin/Dextrose 5%-Water 750 MG in Premix Bag 1 BAG IV SCH (18:49)
[2023-01-24] MEDS: Albuterol/Ipratropium 3.0-0.5 MG/3 ML Neb Soln NEB SCH ×4 (05:45→23:39)
[2023-01-24] MEDS: methylPREDNISolone Sodium Succinate 40 MG/1 ML SDV IVPUSH SCH ×3 (05:46→21:13)
[2023-01-24 06:17] LABS: HEMATOCRIT 43.2 % (36.0-46.0); HEMOGLOBIN 13.5 g/dL (12.0-16.0); LYMPHOCYTES ABSOLUTE AUTO 0.6 K/uL (0.6-2.4); LYMPHOCYTES PERCENT AUTO 7.9 % (16.0-40.0); MEAN CORPUSCULAR HEMOGLOBIN 30.4 pg (27.0-32.0); MEAN CORPUSCULAR HGB CONC 31.3 g/dL (31.0-37.0); MEAN CORPUSCULAR VOLUME 97.3 fL (80.0-98.0); MONOCYTES ABSOLUTE AUTO 0.6 K/uL (0.0-0.8); MONOCYTES PERCENT AUTO 8.1 % (0.0-15.0); NEUTROPHILS ABSOLUTE AUTO 6.4 K/uL (1.4-5.7); NRBC ABSOLUTE 0 K/uL; PLATELET COUNT,PLT 209 K/uL (150-400); RED BLOOD CELL COUNT 4.44 M/uL (4.30-5.90); WHITE BLOOD CELL COUNT,WBC 7.57 K/uL (4.0-11.0)
[2023-01-24 06:35] LABS: A/G RATIO 0.9 (0.9-1.6); BILIRUBIN TOTAL 0.2 mg/dL (0.2-1.0); CALCIUM 8.9 mg/dL (8.5-10.1); CARBON DIOXIDE,CO2 43.4 mmol/L (21.0-32.0); CREATININE 0.6 mg/dL (0.6-1.0); EST CRCL DRUG DOSING (CG) 87.64 mL/min; MAGNESIUM 1.9 mg/dL (1.8-2.4); POTASSIUM,K 5.1 mmol/L (3.5-5.1); PROTEIN TOTAL,TP 6.2 g/dL (6.4-8.2)
[2023-01-24] MEDS: Pantoprazole 40 MG in Sodium Chloride 0.9% 10 ML IVPUSH SCH (06:35)
[2023-01-24 11:00] LABS: BASE EXCESS VENOUS 17.4 (-2.0-3.0); PH,VENOUS 7.38 (7.31-7.41)
[2023-01-24] MEDS: Enoxaparin 40 MG/0.4 ML Syringe SUBCUT SCH (19:46)
[2023-01-24] MEDS: Levofloxacin/Dextrose 5%-Water 750 MG in Premix Bag 1 BAG IV SCH (19:47)
[2023-01-25] MEDS: methylPREDNISolone Sodium Succinate 40 MG/1 ML SDV IVPUSH SCH (05:50)
[2023-01-25] MEDS: Albuterol/Ipratropium 3.0-0.5 MG/3 ML Neb Soln NEB SCH ×3 (05:50→17:31)
[2023-01-25] MEDS: Pantoprazole 40 MG in Sodium Chloride 0.9% 10 ML IVPUSH SCH (06:45)
[2023-01-25 07:23] LABS: BASE EXCESS VENOUS 14.1 (-2.0-3.0); PH,VENOUS 7.35 (7.31-7.41)
[2023-01-25 07:38] LABS: HEMATOCRIT 43.9 % (36.0-46.0); HEMOGLOBIN 14.2 g/dL (12.0-16.0); LYMPHOCYTES ABSOLUTE AUTO 0.8 K/uL (0.6-2.4); MEAN CORPUSCULAR HEMOGLOBIN 31.2 pg (27.0-32.0); MEAN CORPUSCULAR HGB CONC 32.3 g/dL (31.0-37.0); MEAN CORPUSCULAR VOLUME 96.5 fL (80.0-98.0); MONOCYTES ABSOLUTE AUTO 0.5 K/uL (0.0-0.8); NEUTROPHILS ABSOLUTE AUTO 6.6 K/uL (1.4-5.7); NRBC ABSOLUTE 0 K/uL; PLATELET COUNT,PLT 217 K/uL (150-400); RED BLOOD CELL COUNT 4.55 M/uL (4.30-5.90); WHITE BLOOD CELL COUNT,WBC 7.88 K/uL (4.0-11.0)
[2023-01-25 07:45] LABS: CALCIUM 9.1 mg/dL (8.5-10.1); CREATININE 0.6 mg/dL (0.6-1.0); EST CRCL DRUG DOSING (CG) 87.64 mL/min; MAGNESIUM 1.9 mg/dL (1.8-2.4); POTASSIUM,K 4.7 mmol/L (3.5-5.1)
[2023-01-25] MEDS ORDERED: Furosemide 40 MG/4 ML VIAL IVPUSH ONE (10:09)
[2023-01-25] MEDS: Lisinopril 10 MG Tab PO SCH (15:06)
[2023-01-25] MEDS: Enoxaparin 40 MG/0.4 ML Syringe SUBCUT SCH (19:17)
[2023-01-25] MEDS: Levofloxacin/Dextrose 5%-Water 750 MG in Premix Bag 1 BAG IV SCH (19:17)
[2023-01-26] MEDS: Albuterol/Ipratropium 3.0-0.5 MG/3 ML Neb Soln NEB SCH ×3 (00:03→13:50)
[2023-01-26] MEDS: Pantoprazole 40 MG in Sodium Chloride 0.9% 10 ML IVPUSH SCH ×2 (06:06→06:41)
[2023-01-26 06:32] LABS: BASOPHILS PERCENT AUTO 0.1 % (0.0-1.5); EOSINOPHILS PERCENT AUTO 0.4 % (0.0-7.0); HEMATOCRIT 46.2 % (36.0-46.0); HEMOGLOBIN 14.2 g/dL (12.0-16.0); LYMPHOCYTES ABSOLUTE AUTO 1.8 K/uL (0.6-2.4); LYMPHOCYTES PERCENT AUTO 22.4 % (16.0-40.0); MEAN CORPUSCULAR HEMOGLOBIN 30.5 pg (27.0-32.0); MEAN CORPUSCULAR HGB CONC 30.7 g/dL (31.0-37.0); MEAN CORPUSCULAR VOLUME 99.4 fL (80.0-98.0); MONOCYTES ABSOLUTE AUTO 0.9 K/uL (0.0-0.8); MONOCYTES PERCENT AUTO 11.3 % (0.0-15.0); NEUTROPHILS ABSOLUTE AUTO 5.4 K/uL (1.4-5.7); NEUTROPHILS PERCENT AUTO 65.8 % (48.0-80.0); NRBC ABSOLUTE 0 K/uL; PLATELET COUNT,PLT 217 K/uL (150-400); RED BLOOD CELL COUNT 4.65 M/uL (4.30-5.90); WHITE BLOOD CELL COUNT,WBC 8.23 K/uL (4.0-11.0)
[2023-01-26 06:52] LABS: CALCIUM 8.6 mg/dL (8.5-10.1); CREATININE 0.6 mg/dL (0.6-1.0); EST CRCL DRUG DOSING (CG) 99.18 mL/min; POTASSIUM,K 4.6 mmol/L (3.5-5.1)
[2023-01-26 07:02] LABS: CARBON DIOXIDE,CO2 46.5 mmol/L (21.0-32.0)
[2023-01-26] MEDS ORDERED: predniSONE 20 MG Tab PO SCH (08:00)
[2023-01-26] MEDS: Lisinopril 10 MG Tab PO SCH (09:14)
[2023-01-26 14:05] VITALS: BP 123/59; PULSE 81
[2023-01-27] MEDS ORDERED: Pantoprazole 40 MG Tab.CR PO SCH (09:00)
== END 2023-01-26 15:00 | disposition home or self-care (01) | DRG 189 ==
LOC: MW.ED 05:34 → MW.ICU 19:34 → MW.MS 01-25 14:47
PROVIDERS: ADMIT Family Medicine; ATTEND Family Medicine
PROC: 5A09357 Assistance with Respiratory Ventilation, Less than 24 Consecutive Hours, Continuous Positive Airway Pressure (ICD-10-PCS; principal; 2023-01-22)
PROC: 4A143R3 Monitoring of Venous Saturation, Pulmonary, Percutaneous Approach (ICD-10-PCS; 2023-01-22)
DX: J96.21 Acute and chronic respiratory failure with hypoxia (principal); J44.1 Chronic obstructive pulmonary disease with (acute) exacerbation; J96.22 Acute and chronic respiratory failure with hypercapnia; I50.9 Heart failure, unspecified; E78.2 Mixed hyperlipidemia; I11.0 Hypertensive heart disease with heart failure; F17.210 Nicotine dependence, cigarettes, uncomplicated; E66.9 Obesity, unspecified; Z20.822 Contact with and (suspected) exposure to COVID-19; M54.9 Dorsalgia, unspecified; G89.29 Other chronic pain; G47.33 Obstructive sleep apnea (adult) (pediatric); Z79.899 Other long term (current) drug therapy; Z88.1 Allergy status to other antibiotic agents; Z88.5 Allergy status to narcotic agent; Z90.49 Acquired absence of other specified parts of digestive tract; Z98.51 Tubal ligation status; Z88.6 Allergy status to analgesic agent; Z68.33 Body mass index [BMI] 33.0-33.9, adult; Z99.81 Dependence on supplemental oxygen; Z98.890 Other specified postprocedural states
CPT/HCPCS: 36415; 70450; 70450-26; 70551; 70551-26; 71045; 71045-26; 71046; 71046-26; 71275; 71275-26; 80048; 80053; 82375; 82803; 83605; 83735; 84100; 84484; 85025; 93005; 93010; 94640; 94660; 94667; 97162-GP; 99284; A9270-GY; C9113; J0456; J1650; J1940; J1956; J2920; J2930; J3490; J7050; J7620-GY; Q9967; U0002

== ENCOUNTER 2023-02-13 18:19 | Inpatient (IN) | payer OTHER ==
[2023-02-13] MEDS ORDERED: Sodium Chloride 0.9% 10 ML Syringe FLUSH PRN (18:36)
[2023-02-13] MEDS ORDERED: Sodium Chloride 0.9% 2.5 ML Syringe FLUSH PRN (18:36)
[2023-02-13] MEDS ORDERED: Albuterol/Ipratropium 3.0-0.5 MG/3 ML Neb Soln NEB STA (18:41)
[2023-02-13 18:52] LABS: BASOPHILS PERCENT AUTO 0.2 % (0.0-1.5); EOSINOPHILS PERCENT AUTO 0.3 % (0.0-7.0); HEMATOCRIT 47.1 % (36.0-46.0); HEMOGLOBIN 13.7 g/dL (12.0-16.0); LYMPHOCYTES ABSOLUTE AUTO 0.8 K/uL (0.6-2.4); LYMPHOCYTES PERCENT AUTO 9.3 % (16.0-40.0); MEAN CORPUSCULAR HEMOGLOBIN 30.8 pg (27.0-32.0); MEAN CORPUSCULAR HGB CONC 29.1 g/dL (31.0-37.0); MEAN CORPUSCULAR VOLUME 105.8 fL (80.0-98.0); MONOCYTES ABSOLUTE AUTO 0.6 K/uL (0.0-0.8); MONOCYTES PERCENT AUTO 6.7 % (0.0-15.0); NEUTROPHILS ABSOLUTE AUTO 7.4 K/uL (1.4-5.7); NEUTROPHILS PERCENT AUTO 83.5 % (48.0-80.0); NRBC ABSOLUTE 0 K/uL; NRBC PERCENT 0.7 /100WBC; PLATELET COUNT,PLT 204 K/uL (150-400); RED BLOOD CELL COUNT 4.45 M/uL (4.30-5.90); WHITE BLOOD CELL COUNT,WBC 8.84 K/uL (4.0-11.0)
[2023-02-13 19:03] LABS: INR 0.96 (0.86-1.11)
[2023-02-13 19:16] LABS: A/G RATIO 0.9 (0.9-1.6); ALBUMIN 2.9 g/dL (3.4-5.0); BILIRUBIN TOTAL 0.3 mg/dL (0.2-1.0); CALCIUM 8.4 mg/dL (8.5-10.1); CARBON DIOXIDE,CO2 44.5 mmol/L (21.0-32.0); CREATININE 0.6 mg/dL (0.6-1.0); EST CRCL DRUG DOSING (CG) 99.18 mL/min; POTASSIUM,K 4.2 mmol/L (3.5-5.1); PROTEIN TOTAL,TP 6.2 g/dL (6.4-8.2)
[2023-02-13 19:17] LABS: MAGNESIUM 1.9 mg/dL (1.8-2.4)
[2023-02-13] MEDS ORDERED: methylPREDNISolone Sodium Succinate 125 MG/2 ML SDV IVPUSH STA (19:44)
[2023-02-13] MEDS ORDERED: Levofloxacin 500 MG Tab PO STA (19:44)
[2023-02-13 19:56] LABS: BASE EXCESS VENOUS 14.9 (-2.0-3.0); PH,VENOUS 7.29 (7.31-7.41)
[2023-02-13 21:58] LABS: PCO2 VENOUS > 98 mmHG (41-51); PH,VENOUS 7.27 (7.31-7.41); PO2 VENOUS 60 mmHG
[2023-02-13 23:25] LABS: BASE EXCESS VENOUS 11.8 (-2.0-3.0); PH,VENOUS 7.26 (7.31-7.41)
[2023-02-14] MEDS ORDERED: Enoxaparin 40 MG/0.4 ML Syringe SUBCUT SCH
[2023-02-14] MEDS: Albuterol/Ipratropium 3.0-0.5 MG/3 ML Neb Soln NEB SCH ×5 (01:11→18:11)
[2023-02-14 06:43] LABS: PH,VENOUS 7.29 (7.31-7.41)
[2023-02-14] MEDS ORDERED: methylPREDNISolone Sodium Succinate 125 MG/2 ML SDV IVPUSH SCH (07:00)
[2023-02-14] MEDS: Furosemide 40 MG Tab PO SCH (08:54)
[2023-02-14] MEDS: Lisinopril 10 MG Tab PO SCH (08:54)
[2023-02-14] MEDS: Fluticasone/Umeclidin/Vilanter [Trelegy Ellipta 100-62.5-25] INH SCH (08:55)
[2023-02-14 10:31] LABS: BASE EXCESS ARTERIAL 14.5 (-2.0-3.0); BICARBONATE,ARTERIAL 46 mEq/L (22-26); PCO2 ARTERIAL 97 mmHG (35-45); PO2 ARTERIAL 67 mmHG (80-105)
[2023-02-14] MEDS: Levofloxacin/Dextrose 5%-Water 750 MG in Premix Bag 1 BAG IV SCH (18:11)
[2023-02-14] MEDS: methylPREDNISolone Sodium Succinate 40 MG/1 ML SDV IVPUSH SCH (20:53)
[2023-02-14] MEDS: Montelukast 10 MG Tab PO SCH (20:53)
[2023-02-14] MEDS: Enoxaparin 40 MG/0.4 ML Syringe SUBCUT SCH (20:53)
[2023-02-15] MEDS: Albuterol/Ipratropium 3.0-0.5 MG/3 ML Neb Soln NEB SCH ×4 (00:53→18:30)
[2023-02-15 06:16] LABS: HEMATOCRIT 43.1 % (36.0-46.0); HEMOGLOBIN 12.5 g/dL (12.0-16.0); LYMPHOCYTES ABSOLUTE AUTO 0.5 K/uL (0.6-2.4); LYMPHOCYTES PERCENT AUTO 5.6 % (16.0-40.0); MEAN CORPUSCULAR HEMOGLOBIN 30.4 pg (27.0-32.0); MEAN CORPUSCULAR VOLUME 104.9 fL (80.0-98.0); MONOCYTES ABSOLUTE AUTO 0.4 K/uL (0.0-0.8); MONOCYTES PERCENT AUTO 4.7 % (0.0-15.0); NEUTROPHILS ABSOLUTE AUTO 7.8 K/uL (1.4-5.7); NEUTROPHILS PERCENT AUTO 89.7 % (48.0-80.0); NRBC ABSOLUTE 0 K/uL; PLATELET COUNT,PLT 181 K/uL (150-400); RED BLOOD CELL COUNT 4.11 M/uL (4.30-5.90); WHITE BLOOD CELL COUNT,WBC 8.74 K/uL (4.0-11.0)
[2023-02-15 06:42] LABS: A/G RATIO 0.8 (0.9-1.6); ALBUMIN 2.6 g/dL (3.4-5.0); BILIRUBIN TOTAL 0.2 mg/dL (0.2-1.0); CALCIUM 8.3 mg/dL (8.5-10.1); CARBON DIOXIDE,CO2 44.8 mmol/L (21.0-32.0); CREATININE 0.4 mg/dL (0.6-1.0); EST CRCL DRUG DOSING (CG) 148.76 mL/min; PHOSPHORUS 2.2 mg/dL (2.6-4.7); POTASSIUM,K 5.5 mmol/L (3.5-5.1); PROTEIN TOTAL,TP 5.8 g/dL (6.4-8.2)
[2023-02-15] MEDS: methylPREDNISolone Sodium Succinate 40 MG/1 ML SDV IVPUSH SCH (09:03)
[2023-02-15] MEDS: Lisinopril 10 MG Tab PO SCH (09:04)
[2023-02-15] MEDS: Fluticasone/Umeclidin/Vilanter [Trelegy Ellipta 100-62.5-25] INH SCH (09:04)
[2023-02-15] MEDS: Furosemide 40 MG Tab PO SCH (09:04)
[2023-02-15 15:29] VITALS: PULSE 95
[2023-02-15] MEDS: Levofloxacin/Dextrose 5%-Water 750 MG in Premix Bag 1 BAG IV SCH (18:30)
[2023-02-15] MEDS: Enoxaparin 40 MG/0.4 ML Syringe SUBCUT SCH (21:30)
[2023-02-15] MEDS: Montelukast 10 MG Tab PO SCH (21:30)
[2023-02-16] MEDS: Albuterol/Ipratropium 3.0-0.5 MG/3 ML Neb Soln NEB SCH ×4 (00:01→18:27)
[2023-02-16 06:05] LABS: EOSINOPHILS PERCENT AUTO 0.4 % (0.0-7.0); HEMATOCRIT 42.5 % (36.0-46.0); HEMOGLOBIN 12.6 g/dL (12.0-16.0); LYMPHOCYTES ABSOLUTE AUTO 1.2 K/uL (0.6-2.4); LYMPHOCYTES PERCENT AUTO 15.7 % (16.0-40.0); MEAN CORPUSCULAR HEMOGLOBIN 30.1 pg (27.0-32.0); MEAN CORPUSCULAR HGB CONC 29.6 g/dL (31.0-37.0); MEAN CORPUSCULAR VOLUME 101.7 fL (80.0-98.0); MONOCYTES ABSOLUTE AUTO 0.6 K/uL (0.0-0.8); MONOCYTES PERCENT AUTO 8.5 % (0.0-15.0); NEUTROPHILS ABSOLUTE AUTO 5.6 K/uL (1.4-5.7); NEUTROPHILS PERCENT AUTO 75.4 % (48.0-80.0); NRBC ABSOLUTE 0 K/uL; PLATELET COUNT,PLT 183 K/uL (150-400); RED BLOOD CELL COUNT 4.18 M/uL (4.30-5.90); WHITE BLOOD CELL COUNT,WBC 7.44 K/uL (4.0-11.0)
[2023-02-16 06:38] LABS: A/G RATIO 0.8 (0.9-1.6); ALBUMIN 2.5 g/dL (3.4-5.0); BILIRUBIN TOTAL 0.3 mg/dL (0.2-1.0); CALCIUM 8.2 mg/dL (8.5-10.1); CREATININE 0.5 mg/dL (0.6-1.0); EST CRCL DRUG DOSING (CG) 119.01 mL/min; POTASSIUM,K 4.5 mmol/L (3.5-5.1); PROTEIN TOTAL,TP 5.7 g/dL (6.4-8.2)
[2023-02-16 06:49] LABS: CARBON DIOXIDE,CO2 45.5 mmol/L (21.0-32.0)
[2023-02-16] MEDS: Fluticasone/Umeclidin/Vilanter [Trelegy Ellipta 100-62.5-25] INH SCH (08:01)
[2023-02-16] MEDS ORDERED: methylPREDNISolone Sodium Succinate 40 MG/1 ML SDV IVPUSH SCH (09:00)
[2023-02-16] MEDS: Furosemide 40 MG Tab PO SCH (09:48)
[2023-02-16] MEDS: Lisinopril 10 MG Tab PO SCH (09:48)
[2023-02-16 09:49] LABS: BASE EXCESS ARTERIAL 16.8 (-2.0-3.0); BICARBONATE,ARTERIAL 46 mEq/L (22-26); PCO2 ARTERIAL 77 mmHG (35-45); PO2 ARTERIAL 61 mmHG (80-105)
[2023-02-16] MEDS: Levofloxacin/Dextrose 5%-Water 750 MG in Premix Bag 1 BAG IV SCH (18:27)
[2023-02-16] MEDS: Montelukast 10 MG Tab PO SCH (21:12)
[2023-02-16] MEDS: Enoxaparin 40 MG/0.4 ML Syringe SUBCUT SCH (21:12)
[2023-02-17] MEDS: Albuterol/Ipratropium 3.0-0.5 MG/3 ML Neb Soln NEB SCH ×3 (00:26→12:26)
[2023-02-17 05:56] LABS: BASOPHILS PERCENT AUTO 0.1 % (0.0-1.5); EOSINOPHILS PERCENT AUTO 0.4 % (0.0-7.0); HEMATOCRIT 42.3 % (36.0-46.0); LYMPHOCYTES ABSOLUTE AUTO 1.4 K/uL (0.6-2.4); LYMPHOCYTES PERCENT AUTO 18.9 % (16.0-40.0); MEAN CORPUSCULAR HEMOGLOBIN 30.7 pg (27.0-32.0); MEAN CORPUSCULAR HGB CONC 30.7 g/dL (31.0-37.0); MONOCYTES ABSOLUTE AUTO 0.8 K/uL (0.0-0.8); MONOCYTES PERCENT AUTO 10.3 % (0.0-15.0); NEUTROPHILS ABSOLUTE AUTO 5.3 K/uL (1.4-5.7); NEUTROPHILS PERCENT AUTO 70.3 % (48.0-80.0); NRBC ABSOLUTE 0 K/uL; PLATELET COUNT,PLT 181 K/uL (150-400); RED BLOOD CELL COUNT 4.23 M/uL (4.30-5.90)
[2023-02-17 06:31] LABS: A/G RATIO 0.9 (0.9-1.6); ALBUMIN 2.4 g/dL (3.4-5.0); BILIRUBIN TOTAL 0.3 mg/dL (0.2-1.0); CALCIUM 8.4 mg/dL (8.5-10.1); CARBON DIOXIDE,CO2 39.6 mmol/L (21.0-32.0); CREATININE 0.4 mg/dL (0.6-1.0); EST CRCL DRUG DOSING (CG) 148.76 mL/min; POTASSIUM,K 4.4 mmol/L (3.5-5.1); PROTEIN TOTAL,TP 5.2 g/dL (6.4-8.2)
[2023-02-17] MEDS ORDERED: predniSONE 20 MG Tab PO SCH (08:00)
[2023-02-17] MEDS: Fluticasone/Umeclidin/Vilanter [Trelegy Ellipta 100-62.5-25] INH SCH (08:02)
[2023-02-17] MEDS: Furosemide 40 MG Tab PO SCH (08:02)
[2023-02-17] MEDS: Lisinopril 10 MG Tab PO SCH (08:02)
[2023-02-17 12:11] VITALS: BP 94/70
== END 2023-02-17 12:30 | disposition home or self-care (01) | DRG 189 ==
LOC: MW.ED 18:19 → MW.ICU 22:02
PROVIDERS: ADMIT Internal Medicine; ATTEND Internal Medicine
PROC: 5A09357 Assistance with Respiratory Ventilation, Less than 24 Consecutive Hours, Continuous Positive Airway Pressure (ICD-10-PCS; principal; 2023-02-13)
PROC: 4A033R1 Measurement of Arterial Saturation, Peripheral, Percutaneous Approach (ICD-10-PCS; 2023-02-16)
DX: J96.21 Acute and chronic respiratory failure with hypoxia (principal); J44.1 Chronic obstructive pulmonary disease with (acute) exacerbation; J96.22 Acute and chronic respiratory failure with hypercapnia; I11.0 Hypertensive heart disease with heart failure; I50.9 Heart failure, unspecified; G47.33 Obstructive sleep apnea (adult) (pediatric); Z20.822 Contact with and (suspected) exposure to COVID-19; E87.5 Hyperkalemia; E66.9 Obesity, unspecified; E78.00 Pure hypercholesterolemia, unspecified; M54.9 Dorsalgia, unspecified; G89.29 Other chronic pain; Z68.33 Body mass index [BMI] 33.0-33.9, adult; Z86.711 Personal history of pulmonary embolism; Z88.8 Allergy status to other drugs, medicaments and biological substances; Z79.899 Other long term (current) drug therapy; Z90.49 Acquired absence of other specified parts of digestive tract; Z90.89 Acquired absence of other organs; Z98.890 Other specified postprocedural states
CPT/HCPCS: 36415; 36600; 71045; 71045-26; 80053; 82375; 82803; 83605; 83690; 83735; 83880; 84100; 84484; 85025; 85610; 87040; 93005; 93010; 93306; 94660; 96374; 97110-GP; 97162-GP; 99285; 99285-25; A9270-GY; J1650; J1956; J2920; J2930; J3490; J7620-GY; U0002

== ENCOUNTER 2023-03-01 08:24 | Inpatient (IN) | payer OTHER ==
[2023-03-01] MEDS ORDERED: Albuterol/Ipratropium 3.0-0.5 MG/3 ML Neb Soln NEB ONE (08:35)
[2023-03-01] MEDS ORDERED: Dexamethasone 10 MG/ML SDV IVPUSH ONE (08:35)
[2023-03-01] MEDS ORDERED: Sodium Chloride 0.9% 10 ML Syringe FLUSH PRN ×2 (08:35→12:31)
[2023-03-01] MEDS ORDERED: Albuterol 0.083% 2.5 MG/3 ML Neb Soln NEB ONE ×4 (08:35→11:06)
[2023-03-01] MEDS ORDERED: Sodium Chloride 0.9% 2.5 ML Syringe FLUSH PRN ×2 (08:35→12:31)
[2023-03-01] MEDS ORDERED: Magnesium Sulfate/Water 2 GM in Premix Bag 1 BAG IV ONE (08:35)
[2023-03-01] MEDS ORDERED: Ondansetron 4 MG/2 ML SDV IVPUSH ONE (08:35)
[2023-03-01 09:20] LABS: HEMATOCRIT 47.1 % (36.0-46.0); HEMOGLOBIN 13.8 g/dL (12.0-16.0); MEAN CORPUSCULAR HEMOGLOBIN 31.2 pg (27.0-32.0); MEAN CORPUSCULAR HGB CONC 29.3 g/dL (31.0-37.0); MEAN CORPUSCULAR VOLUME 106.6 fL (80.0-98.0); PLATELET COUNT,PLT 282 K/uL (150-400); RED BLOOD CELL COUNT 4.42 M/uL (4.30-5.90); WHITE BLOOD CELL COUNT,WBC 11.78 K/uL (4.0-11.0)
[2023-03-01] MEDS ORDERED: Levofloxacin/Dextrose 5%-Water 750 MG in Premix Bag 1 BAG IV ONE (09:29)
[2023-03-01 09:41] LABS: INR 1.02 (0.86-1.11)
[2023-03-01 09:50] LABS: BAND ABSOLUTE MAN 0.5; BAND PERCENT MAN 4 %; BASOPHILS ABSOLUTE MAN 0.1 (0.0-0.1); BASOPHILS PERCENT MAN 1 % (0.0-1.5); LYMPHOCYTES ABSOLUTE MAN 1.5 (0.6-2.4); LYMPHOCYTES PERCENT MAN 13 % (16.0-40.0); METAMYELOCYTE ABSOLUTE MAN 0.2; METAMYELOCYTE PERCENT MAN 2 %; MONOCYTES ABSOLUTE MAN 0.2 (0.0-0.8); MONOCYTES PERCENT MAN 2 % (0.0-15.0); SEG NEUTROPHILS ABSOLUTE MAN 9.2 (1.4-5.7); SEG NEUTROPHILS PERCENT MAN 78 % (48.0-80.0)
[2023-03-01 10:03] LABS: LACTIC ACID 1.1 mmol/L (0.4-2.0)
[2023-03-01 10:04] LABS: A/G RATIO 0.9 (0.9-1.6); ALANINE AMINOTRANSFERASE,ALT 16 IU/L (14-63); ALBUMIN 3.1 g/dL (3.4-5.0); ALKALINE PHOSPHATASE 104 U/L (46-116); ASPARTATE AMNIOTRANSFERASE,AST 19 IU/L (15-37); BILIRUBIN TOTAL 0.3 mg/dL (0.2-1.0); BLOOD UREA NITROGEN,BUN 13 mg/dL (7.0-18.0); CALCIUM 8.6 mg/dL (8.5-10.1); CARBON DIOXIDE,CO2 43.4 mmol/L (21.0-32.0); CHLORIDE,CL 98 mmol/L (98-107); CREATININE 0.5 mg/dL (0.6-1.0); GLUCOSE RANDOM 125 mg/dL (74-106); LIPASE 16 U/L (16-77); MAGNESIUM 1.8 mg/dL (1.8-2.4); POTASSIUM,K 4.3 mmol/L (3.5-5.1); PROTEIN TOTAL,TP 6.7 g/dL (6.4-8.2); SODIUM,NA 142 mmol/L (136-145)
[2023-03-01 10:11] LABS: ESTIMATED GFR 111 mL/min (>60)
[2023-03-01 10:14] LABS: PCO2 ARTERIAL > 130 mmHG (35-45); PO2 ARTERIAL 60 mmHG (80-105)
[2023-03-01] MEDS ORDERED: Furosemide 40 MG/4 ML VIAL IVPUSH ONE (10:44)
[2023-03-01 11:03] LABS: PCO2 ARTERIAL > 130 mmHG (35-45); PO2 ARTERIAL 64 mmHG (80-105)
[2023-03-01 12:01] LABS: PCO2 ARTERIAL > 98 mmHG (35-45); PO2 ARTERIAL 76 mmHG (80-105)
[2023-03-01] MEDS ORDERED: Ondansetron 4 MG/2 ML SDV IVPUSH PRN (12:31)
[2023-03-01] MEDS ORDERED: Pantoprazole 40 MG in Sodium Chloride 0.9% 10 ML IVPUSH SCH (14:00)
[2023-03-01] MEDS: Albuterol/Ipratropium 3.0-0.5 MG/3 ML Neb Soln NEB SCH ×2 (14:02→19:17)
[2023-03-01] MEDS: Piperacillin/Tazobactam 4.5 GM in Sodium Chloride 0.9% 100 ML IV SCH ×2 (14:04→19:16)
[2023-03-01] MEDS ORDERED: methylPREDNISolone Sodium Succinate 40 MG/1 ML SDV IVPUSH SCH (14:30)
[2023-03-01 14:52] VITALS: PULSE 100
[2023-03-01 15:07] LABS: PCO2 ARTERIAL > 98 mmHG (35-45); PO2 ARTERIAL 82 mmHG (80-105)
[2023-03-01] MEDS ORDERED: fentaNYL/Normal Saline 2,500 MCG in Premix Bag 1 BAG IV PRN (15:48)
[2023-03-01] MEDS ORDERED: propofoL 100 ML IV SCH (16:00)
[2023-03-01] MEDS ORDERED: Heparin Sodium 5,000 Units/ML Vial SUBCUT SCH (18:00)
[2023-03-01 19:30] VITALS: BP 120/70
== END 2023-03-01 19:30 | DRG 189 ==
LOC: MW.ED 08:24 → MW.ICU 12:07
PROVIDERS: ADMIT Family Medicine; ATTEND Family Medicine
PROC: 0BH17EZ Insertion of Endotracheal Airway into Trachea, Via Natural or Artificial Opening (ICD-10-PCS; principal; 2023-03-01)
PROC: 5A09357 Assistance with Respiratory Ventilation, Less than 24 Consecutive Hours, Continuous Positive Airway Pressure (ICD-10-PCS; 2023-03-01)
PROC: 4A033R1 Measurement of Arterial Saturation, Peripheral, Percutaneous Approach (ICD-10-PCS; 2023-03-01)
PROC: 03HY32Z Insertion of Monitoring Device into Upper Artery, Percutaneous Approach (ICD-10-PCS; 2023-03-01)
DX: J96.21 Acute and chronic respiratory failure with hypoxia (principal); J44.1 Chronic obstructive pulmonary disease with (acute) exacerbation; E87.29 Other acidosis; G93.40 Encephalopathy, unspecified; J96.22 Acute and chronic respiratory failure with hypercapnia; E78.00 Pure hypercholesterolemia, unspecified; M54.9 Dorsalgia, unspecified; G89.29 Other chronic pain; Z20.822 Contact with and (suspected) exposure to COVID-19; D72.829 Elevated white blood cell count, unspecified; F17.200 Nicotine dependence, unspecified, uncomplicated; E66.09 Other obesity due to excess calories; I50.9 Heart failure, unspecified; I11.0 Hypertensive heart disease with heart failure; D75.89 Other specified diseases of blood and blood-forming organs; Z88.8 Allergy status to other drugs, medicaments and biological substances; Z79.899 Other long term (current) drug therapy; Z90.89 Acquired absence of other organs; Z90.49 Acquired absence of other specified parts of digestive tract; Z98.51 Tubal ligation status; Z68.30 Body mass index [BMI] 30.0-30.9, adult; Z99.81 Dependence on supplemental oxygen
CPT/HCPCS: 36415; 36600; 71045; 71045-26; 80053; 82803; 83605; 83690; 83735; 83880; 84484; 85025; 85610; 85730; 87040; 93005; 93010; 94640; 94660; 96365; 96367; 96375; 99291; C9113; J1100; J1940; J1956; J2405; J2543; J2704; J2920; J3475; J3490; J7620-GY; U0002

== ENCOUNTER 2023-03-13 20:39 | Emergency (ER) | payer OTHER ==
[2023-03-13] MEDS ORDERED: Sodium Chloride 0.9% 2.5 ML Syringe FLUSH PRN (21:07)
[2023-03-13] MEDS ORDERED: Sodium Chloride 0.9% 10 ML Syringe FLUSH PRN (21:07)
[2023-03-13 21:23] LABS: BASOPHILS PERCENT AUTO 0.2 % (0.0-1.5); EOSINOPHILS PERCENT AUTO 0.1 % (0.0-7.0); HEMATOCRIT 49.5 % (36.0-46.0); HEMOGLOBIN 14.3 g/dL (12.0-16.0); LYMPHOCYTES ABSOLUTE AUTO 1.1 K/uL (0.6-2.4); LYMPHOCYTES PERCENT AUTO 9.4 % (16.0-40.0); MEAN CORPUSCULAR HEMOGLOBIN 30.7 pg (27.0-32.0); MEAN CORPUSCULAR HGB CONC 28.9 g/dL (31.0-37.0); MEAN CORPUSCULAR VOLUME 106.2 fL (80.0-98.0); MONOCYTES ABSOLUTE AUTO 0.8 K/uL (0.0-0.8); MONOCYTES PERCENT AUTO 6.5 % (0.0-15.0); NEUTROPHILS ABSOLUTE AUTO 10.1 K/uL (1.4-5.7); NEUTROPHILS PERCENT AUTO 83.8 % (48.0-80.0); NRBC ABSOLUTE 0 K/uL; NRBC PERCENT 0.5 /100WBC; PLATELET COUNT,PLT 319 K/uL (150-400); RED BLOOD CELL COUNT 4.66 M/uL (4.30-5.90); WHITE BLOOD CELL COUNT,WBC 12.02 K/uL (4.0-11.0)
[2023-03-13 21:42] LABS: INR 1.02 (0.86-1.11)
[2023-03-13 21:50] LABS: A/G RATIO 0.9 (0.9-1.6); ALBUMIN 3.4 g/dL (3.4-5.0); BILIRUBIN TOTAL 0.3 mg/dL (0.2-1.0); CALCIUM 8.6 mg/dL (8.5-10.1); CREATININE 0.4 mg/dL (0.6-1.0); EST CRCL DRUG DOSING (CG) 148.76 mL/min; POTASSIUM,K 4.2 mmol/L (3.5-5.1)
[2023-03-13 21:51] LABS: PCO2 ARTERIAL > 98 mmHG (35-45); PO2 ARTERIAL 84 mmHG (80-105)
[2023-03-13 22:45] LABS: CORONAVIRUS COVID-19 NAA NEGATIVE (NEGATIVE); INFLUENZA A NAA NEGATIVE (NEGATIVE); INFLUENZA B NAA NEGATIVE (NEGATIVE); RESPIRATORY SYNCYTIAL VIR NAA NEGATIVE (NEGATIVE)
[2023-03-13] MEDS ORDERED: Albuterol/Ipratropium 3.0-0.5 MG/3 ML Neb Soln NEB ONE (22:52)
[2023-03-13] MEDS ORDERED: methylPREDNISolone Sodium Succinate 125 MG/2 ML SDV IVPUSH ONE (22:55)
[2023-03-13 22:57] LABS: PCO2 ARTERIAL > 98 mmHG (35-45); PO2 ARTERIAL 53 mmHG (80-105)
[2023-03-14 00:18] LABS: PCO2 ARTERIAL > 98 mmHG (35-45); PO2 ARTERIAL 52 mmHG (80-105)
[2023-03-14 01:47] VITALS: BP 105/73; PULSE 100
== END 2023-03-14 02:00 | disposition other institution (70) ==
LOC: MW.ED 20:39
DX: J96.92 Respiratory failure, unspecified with hypercapnia (principal); E87.29 Other acidosis; I11.0 Hypertensive heart disease with heart failure; I50.9 Heart failure, unspecified; J44.9 Chronic obstructive pulmonary disease, unspecified; E66.9 Obesity, unspecified; Z68.30 Body mass index [BMI] 30.0-30.9, adult; Z88.1 Allergy status to other antibiotic agents; Z88.5 Allergy status to narcotic agent; Z79.899 Other long term (current) drug therapy; Z90.49 Acquired absence of other specified parts of digestive tract; Z87.891 Personal history of nicotine dependence; Z20.822 Contact with and (suspected) exposure to COVID-19
CPT/HCPCS: 0241U; 36415; 36600; 71045; 80053; 82803; 83880; 84484; 85025; 85610; 93005; 94640; 94660; 96374; 99285; J2930; J3490; 93010; 99284; J7620-GY

== ENCOUNTER 2023-04-10 19:38 | Emergency (ER) | payer OTHER ==
[2023-04-10] MEDS ORDERED: methylPREDNISolone Sodium Succinate 125 MG/2 ML SDV IVPUSH ONE (19:41)
[2023-04-10] MEDS ORDERED: Albuterol/Ipratropium 3.0-0.5 MG/3 ML Neb Soln NEB ONE (19:41)
[2023-04-10 20:01] LABS: BASOPHILS ABSOLUTE AUTO 0.05 K/uL (0.00-0.20); BASOPHILS PERCENT AUTO 0.5 % (0.0-1.0); HEMATOCRIT 49.8 % (37.0-47.0); HEMOGLOBIN 14.8 g/dL (12.0-16.0); IMMATURE GRAN ABSOLUTE AUTO 0.12 K/uL (0.00-0.05); IMMATURE GRAN PERCENT AUTO 1.3 % (0.0-0.4); LYMPHOCYTES ABSOLUTE AUTO 0.73 K/uL (1.00-4.80); LYMPHOCYTES PERCENT AUTO 7.8 % (24.0-44.0); MEAN CORPUSCULAR HEMOGLOBIN 30.5 pg (28.0-32.0); MEAN CORPUSCULAR HGB CONC 29.7 g/dL (32.0-36.0); MEAN CORPUSCULAR VOLUME 102.5 fL (83.0-99.0); MONOCYTES ABSOLUTE AUTO 0.61 K/uL (0.00-0.80); MONOCYTES PERCENT AUTO 6.5 % (0.0-8.0); NEUTROPHILS ABSOLUTE AUTO 7.84 K/uL (1.80-7.70); NEUTROPHILS PERCENT AUTO 83.9 % (41.0-71.0); NRBC ABSOLUTE 0.02 K/uL (0.00-0.02); NRBC PERCENT 0.2 /100WBC (0.0-0.2); PLATELET COUNT,PLT 248 K/uL (150-400); RED BLOOD CELL COUNT 4.86 M/uL (4.10-5.30); WHITE BLOOD CELL COUNT,WBC 9.35 K/uL (3.9-11.3)
[2023-04-10 20:04] LABS: PCO2 VENOUS > 98 mmHG (41-51); PH,VENOUS 7.19 (7.31-7.41); PO2 VENOUS 45 mmHG
[2023-04-10 20:56] LABS: A/G RATIO 0.9 (0.9-1.6); ALANINE AMINOTRANSFERASE,ALT 19 IU/L (14-63); ALBUMIN 3.2 g/dL (3.4-5.0); ALKALINE PHOSPHATASE 122 U/L (46-116); ASPARTATE AMNIOTRANSFERASE,AST 18 IU/L (15-37); BILIRUBIN TOTAL 0.3 mg/dL (0.2-1.0); BLOOD UREA NITROGEN,BUN 8 mg/dL (7.0-18.0); CALCIUM 9.4 mg/dL (8.5-10.1); CHLORIDE,CL 101 mmol/L (98-107); CREATININE 0.5 mg/dL (0.6-1.0); GLUCOSE RANDOM 115 mg/dL (74-106); MAGNESIUM 1.9 mg/dL (1.8-2.4); POTASSIUM,K 3.9 mmol/L (3.5-5.1); PROTEIN TOTAL,TP 6.7 g/dL (6.4-8.2); SODIUM,NA 147 mmol/L (136-145)
[2023-04-10 21:08] LABS: CARBON DIOXIDE,CO2 49.1 mmol/L (21.0-32.0); ESTIMATED GFR 111 mL/min (>60)
[2023-04-10 21:38] LABS: PCO2 ARTERIAL > 98 mmHG (35-45); PO2 ARTERIAL 66 mmHG (80-105)
[2023-04-10] MEDS ORDERED: Levofloxacin/Dextrose 5%-Water 750 MG in Premix Bag 1 BAG IV ONE (21:41)
[2023-04-10] MEDS ORDERED: fentaNYL/Normal Saline 2,500 MCG in Premix Bag 1 BAG IV PRN (21:45)
[2023-04-10] MEDS ORDERED: propofoL 100 ML IV SCH (21:45)
[2023-04-10] MEDS ORDERED: Succinylcholine 200 MG/10 ML MDV IV STA (21:46)
[2023-04-10] MEDS ORDERED: Etomidate 2 MG/ML 20 ML SDV IVPUSH ONE (21:47)
[2023-04-10] MEDS ORDERED: fentaNYL 100 MCG/2 ML SDV ONE ×2 (22:43→23:15)
[2023-04-10] MEDS ORDERED: Etomidate 2 MG/ML 20 ML SDV IVPUSH STA (22:48)
[2023-04-10] MEDS: fentaNYL 100 MCG/2 ML SDV IVPUSH PRN ×2 (22:52→22:54)
[2023-04-10] MEDS ORDERED: Sodium Chloride 0.9% 1,000 ML IV ONE (22:59)
[2023-04-10] MEDS ORDERED: fentaNYL 100 MCG/2 ML SDV IVPUSH ONE (23:12)
[2023-04-11] LABS: BICARBONATE,ARTERIAL 48 mEq/L (22-26); PCO2 ARTERIAL 114 mmHG (35-45); PO2 ARTERIAL 84 mmHG (80-105)
[2023-04-11 03:40] VITALS: BP 113/63; PULSE 80
== END 2023-04-11 ==
LOC: MW.ED 19:38
DX: J96.01 Acute respiratory failure with hypoxia (principal); E78.00 Pure hypercholesterolemia, unspecified; J44.9 Chronic obstructive pulmonary disease, unspecified; I11.0 Hypertensive heart disease with heart failure; I50.9 Heart failure, unspecified; E66.9 Obesity, unspecified; Z79.899 Other long term (current) drug therapy; Z20.822 Contact with and (suspected) exposure to COVID-19; Z88.5 Allergy status to narcotic agent; Z88.6 Allergy status to analgesic agent; Z88.1 Allergy status to other antibiotic agents
CPT/HCPCS: 31500; 36415; 36600; 71045; 80053; 82803; 83735; 84484; 85025; 87635; 93005; 94640; 94660; 96365; 96366; 96375; 96376; 99291; J0330; J1956; J2704; J2930; J3010; J3490; J7030; 93010; J7620-GY; U0002

== ENCOUNTER 2023-04-22 07:26 | Inpatient (IN) | payer OTHER ==
[2023-04-22] MEDS ORDERED: Sodium Chloride 0.9% 10 ML Syringe FLUSH PRN (07:30)
[2023-04-22] MEDS ORDERED: Magnesium Sulfate/Water 2 GM in Premix Bag 1 BAG IV ONE (07:30)
[2023-04-22] MEDS ORDERED: Albuterol 0.083% 2.5 MG/3 ML Neb Soln NEB ONE ×2 (07:30→12:25)
[2023-04-22] MEDS ORDERED: Sodium Chloride 0.9% 2.5 ML Syringe FLUSH PRN (07:30)
[2023-04-22] MEDS ORDERED: Albuterol/Ipratropium 3.0-0.5 MG/3 ML Neb Soln NEB ONE (07:30)
[2023-04-22] MEDS ORDERED: methylPREDNISolone Sodium Succinate 125 MG/2 ML SDV IVPUSH ONE (07:37)
[2023-04-22 07:52] LABS: BASE EXCESS VENOUS 19.7 (-2.0-3.0); BICARBONATE,VENOUS 51 mEq/L (23-28); PCO2 VENOUS 95 mmHG (41-51); PH,VENOUS 7.34 (7.31-7.41)
[2023-04-22 07:54] LABS: PO2 VENOUS < 30 mmHG
[2023-04-22 08:15] LABS: INR 1.01 (0.86-1.11); PTT,PARTIAL THROMBOPLSTIN TIME 23.2 SEC (23.9-30.7)
[2023-04-22 08:36] LABS: CORONAVIRUS COVID-19 NAA NEGATIVE (NEGATIVE); INFLUENZA A NAA NEGATIVE (NEGATIVE); INFLUENZA B NAA NEGATIVE (NEGATIVE); RESPIRATORY SYNCYTIAL VIR NAA NEGATIVE (NEGATIVE)
[2023-04-22 09:13] LABS: BASOPHILS ABSOLUTE AUTO 0.02 K/uL (0.00-0.20); BASOPHILS PERCENT AUTO 0.1 % (0.0-1.0); HEMATOCRIT 43.4 % (37.0-47.0); HEMOGLOBIN 13.3 g/dL (12.0-16.0); IMMATURE GRAN ABSOLUTE AUTO 0.12 K/uL (0.00-0.05); IMMATURE GRAN PERCENT AUTO 0.7 % (0.0-0.4); LYMPHOCYTES ABSOLUTE AUTO 0.41 K/uL (1.00-4.80); LYMPHOCYTES PERCENT AUTO 2.5 % (24.0-44.0); MEAN CORPUSCULAR HEMOGLOBIN 31.3 pg (28.0-32.0); MEAN CORPUSCULAR HGB CONC 30.6 g/dL (32.0-36.0); MEAN CORPUSCULAR VOLUME 102.1 fL (83.0-99.0); MEAN PLATELET VOLUME 10.4 fL (9.4-12.3); MONOCYTES ABSOLUTE AUTO 0.25 K/uL (0.00-0.80); MONOCYTES PERCENT AUTO 1.5 % (0.0-8.0); NEUTROPHILS ABSOLUTE AUTO 15.57 K/uL (1.80-7.70); NEUTROPHILS PERCENT AUTO 95.2 % (41.0-71.0); PLATELET COUNT,PLT 318 K/uL (150-400); RED BLOOD CELL COUNT 4.25 M/uL (4.10-5.30); WHITE BLOOD CELL COUNT,WBC 16.37 K/uL (3.9-11.3)
[2023-04-22 09:19] LABS: BASE EXCESS ARTERIAL 17.4 (-2.0-3.0); BICARBONATE,ARTERIAL 48 mEq/L (22-26); PCO2 ARTERIAL 93 mmHG (35-45); PO2 ARTERIAL 55 mmHG (80-105)
[2023-04-22 09:39] LABS: ALBUMIN 3.2 g/dL (3.4-5.0); BILIRUBIN TOTAL 0.3 mg/dL (0.2-1.0); CALCIUM 9.1 mg/dL (8.5-10.1); CREATININE 0.5 mg/dL (0.6-1.0); EST CRCL DRUG DOSING (CG) 119.01 mL/min; MAGNESIUM 2.6 mg/dL (1.8-2.4); POTASSIUM,K 3.7 mmol/L (3.5-5.1); PROTEIN TOTAL,TP 6.4 g/dL (6.4-8.2)
[2023-04-22 09:43] LABS: LACTIC ACID 1.2 mmol/L (0.4-2.0)
[2023-04-22] MEDS ORDERED: Levofloxacin/Dextrose 5%-Water 750 MG in Premix Bag 1 BAG IV STA (09:53)
[2023-04-22 10:26] LABS: CARBON DIOXIDE,CO2 42.4 mmol/L (21.0-32.0)
[2023-04-22 10:47] LABS: PCO2 ARTERIAL > 98 mmHG (35-45); PO2 ARTERIAL 70 mmHG (80-105)
[2023-04-22 12:46] LABS: BASE EXCESS ARTERIAL 17.7 (-2.0-3.0); BICARBONATE,ARTERIAL 49 mEq/L (22-26); PCO2 ARTERIAL 97 mmHG (35-45); PO2 ARTERIAL 66 mmHG (80-105)
[2023-04-22] MEDS: Pantoprazole 40 MG Tab.CR PO SCH (16:17)
[2023-04-22] MEDS: Albuterol/Ipratropium 3.0-0.5 MG/3 ML Neb Soln NEB SCH (17:55)
[2023-04-22 17:57] VITALS: PULSE 103
[2023-04-22] MEDS: methylPREDNISolone Sodium Succinate 125 MG/2 ML SDV IVPUSH SCH (18:44)
[2023-04-22] MEDS ORDERED: 50% Dextrose in Water 50 ML Syringe IVPUSH PRN (19:32)
[2023-04-22] MEDS ORDERED: Glucagon,Human Recombinant 1 MG Vial IM PRN (19:32)
[2023-04-22] MEDS ORDERED: Montelukast 10 MG Tab PO SCH (21:00)
[2023-04-22] MEDS: Apixaban 5 MG Tab PO SCH (21:15)
[2023-04-23] MEDS: Albuterol/Ipratropium 3.0-0.5 MG/3 ML Neb Soln NEB SCH ×3 (01:00→11:36)
[2023-04-23 06:19] LABS: BASOPHILS ABSOLUTE AUTO 0.02 K/uL (0.00-0.20); BASOPHILS PERCENT AUTO 0.1 % (0.0-1.0); HEMATOCRIT 39.1 % (37.0-47.0); HEMOGLOBIN 12.1 g/dL (12.0-16.0); IMMATURE GRAN ABSOLUTE AUTO 0.12 K/uL (0.00-0.05); IMMATURE GRAN PERCENT AUTO 0.7 % (0.0-0.4); LYMPHOCYTES ABSOLUTE AUTO 0.85 K/uL (1.00-4.80); MEAN CORPUSCULAR HGB CONC 30.9 g/dL (32.0-36.0); MEAN CORPUSCULAR VOLUME 100.3 fL (83.0-99.0); MONOCYTES ABSOLUTE AUTO 1.01 K/uL (0.00-0.80); MONOCYTES PERCENT AUTO 5.9 % (0.0-8.0); NEUTROPHILS ABSOLUTE AUTO 15.08 K/uL (1.80-7.70); NEUTROPHILS PERCENT AUTO 88.3 % (41.0-71.0); PLATELET COUNT,PLT 299 K/uL (150-400); WHITE BLOOD CELL COUNT,WBC 17.08 K/uL (3.9-11.3)
[2023-04-23 06:46] LABS: A/G RATIO 0.9 (0.9-1.6); ALBUMIN 2.8 g/dL (3.4-5.0); BILIRUBIN TOTAL 0.2 mg/dL (0.2-1.0); CALCIUM 8.6 mg/dL (8.5-10.1); CARBON DIOXIDE,CO2 43.5 mmol/L (21.0-32.0); CREATININE 0.4 mg/dL (0.6-1.0); EST CRCL DRUG DOSING (CG) 148.76 mL/min; POTASSIUM,K 4.6 mmol/L (3.5-5.1); PROTEIN TOTAL,TP 5.9 g/dL (6.4-8.2)
[2023-04-23] MEDS: methylPREDNISolone Sodium Succinate 125 MG/2 ML SDV IVPUSH SCH (06:58)
[2023-04-23] MEDS: Pantoprazole 40 MG Tab.CR PO SCH (08:12)
[2023-04-23] MEDS: Apixaban 5 MG Tab PO SCH (08:13)
[2023-04-23] MEDS: Insulin Aspart 100 Units/ML 3 ML Pen SUBCUT SCH ×2 (08:15→11:31)
[2023-04-23] MEDS ORDERED: UMECLIDINIUM INH SCH (09:00)
[2023-04-23] MEDS ORDERED: Lisinopril 10 MG Tab PO SCH (09:00)
[2023-04-23] MEDS ORDERED: Furosemide 40 MG Tab PO SCH (09:00)
[2023-04-23] MEDS ORDERED: VILANTEROL INH SCH (09:00)
[2023-04-23] MEDS ORDERED: FLUTICASONE INH SCH (09:00)
[2023-04-23] MEDS ORDERED: [UNRECOGNIZED DRUG - OTHER] INH SCH (09:00)
[2023-04-23] MEDS ORDERED: Levofloxacin/Dextrose 5%-Water 750 MG in Premix Bag 1 BAG IV SCH (10:00)
[2023-04-23 11:03] LABS: CALCIUM 9.1 mg/dL (8.5-10.1); CARBON DIOXIDE,CO2 41.4 mmol/L (21.0-32.0); CREATININE 0.6 mg/dL (0.6-1.0); EST CRCL DRUG DOSING (CG) 99.18 mL/min; POTASSIUM,K 4.3 mmol/L (3.5-5.1)
[2023-04-23 12:35] VITALS: BP 126/72
== END 2023-04-23 12:34 | disposition home or self-care (01) | DRG 189 ==
LOC: MW.ED 07:26 → MW.ICU 13:27
PROVIDERS: ADMIT Internal Medicine; ATTEND Internal Medicine
PROC: 4A033R1 Measurement of Arterial Saturation, Peripheral, Percutaneous Approach (ICD-10-PCS; principal; 2023-04-22)
PROC: 5A09357 Assistance with Respiratory Ventilation, Less than 24 Consecutive Hours, Continuous Positive Airway Pressure (ICD-10-PCS; 2023-04-22)
DX: J96.21 Acute and chronic respiratory failure with hypoxia (principal); J44.1 Chronic obstructive pulmonary disease with (acute) exacerbation; J44.0 Chronic obstructive pulmonary disease with (acute) lower respiratory infection; J96.22 Acute and chronic respiratory failure with hypercapnia; I50.9 Heart failure, unspecified; E78.00 Pure hypercholesterolemia, unspecified; I11.0 Hypertensive heart disease with heart failure; M54.9 Dorsalgia, unspecified; G89.29 Other chronic pain; E66.9 Obesity, unspecified; D72.829 Elevated white blood cell count, unspecified; Z88.8 Allergy status to other drugs, medicaments and biological substances; Z79.899 Other long term (current) drug therapy; Z90.49 Acquired absence of other specified parts of digestive tract; Z68.31 Body mass index [BMI] 31.0-31.9, adult; Z90.89 Acquired absence of other organs; Z98.51 Tubal ligation status; Z11.52 Encounter for screening for COVID-19; Z79.01 Long term (current) use of anticoagulants; Z86.711 Personal history of pulmonary embolism
CPT/HCPCS: 0241U; 36415; 36600; 71045; 71045-26; 80048; 80053; 82803; 82947; 83605; 83690; 83735; 83880; 84484; 85025; 85610; 85730; 87040; 93005; 93010; 94640; 94660; 96365; 96367; 96375; 99291; A9270-GY; J1956; J2930; J3475; J3490; J7620-GY

== ENCOUNTER 2023-05-03 07:20 | Emergency (ER) | payer OTHER ==
[2023-05-03] MEDS ORDERED: Albuterol/Ipratropium 3.0-0.5 MG/3 ML Neb Soln NEB ONE (07:27)
[2023-05-03] MEDS ORDERED: methylPREDNISolone Sodium Succinate 125 MG/2 ML SDV IVPUSH ONE (07:27)
[2023-05-03 07:44] LABS: BASE EXCESS VENOUS 13.9 (-2.0-3.0); PH,VENOUS 7.36 (7.31-7.41)
[2023-05-03 07:57] LABS: BASOPHILS ABSOLUTE AUTO 0.04 K/uL (0.00-0.20); BASOPHILS PERCENT AUTO 0.3 % (0.0-1.0); HEMATOCRIT 45.7 % (37.0-47.0); HEMOGLOBIN 14.3 g/dL (12.0-16.0); IMMATURE GRAN ABSOLUTE AUTO 0.06 K/uL (0.00-0.05); IMMATURE GRAN PERCENT AUTO 0.5 % (0.0-0.4); LYMPHOCYTES ABSOLUTE AUTO 0.29 K/uL (1.00-4.80); LYMPHOCYTES PERCENT AUTO 2.3 % (24.0-44.0); MEAN CORPUSCULAR HEMOGLOBIN 30.8 pg (28.0-32.0); MEAN CORPUSCULAR HGB CONC 31.3 g/dL (32.0-36.0); MEAN CORPUSCULAR VOLUME 98.3 fL (83.0-99.0); MEAN PLATELET VOLUME 11.5 fL (9.4-12.3); MONOCYTES ABSOLUTE AUTO 0.17 K/uL (0.00-0.80); MONOCYTES PERCENT AUTO 1.4 % (0.0-8.0); NEUTROPHILS PERCENT AUTO 95.5 % (41.0-71.0); PLATELET COUNT,PLT 221 K/uL (150-400); RED BLOOD CELL COUNT 4.65 M/uL (4.10-5.30); WHITE BLOOD CELL COUNT,WBC 12.36 K/uL (3.9-11.3)
[2023-05-03 08:08] VITALS: BP 95/51
[2023-05-03 08:13] LABS: LACTIC ACID 1.3 mmol/L (0.4-2.0)
[2023-05-03 08:14] LABS: A/G RATIO 0.9 (0.9-1.6); ALBUMIN 3.4 g/dL (3.4-5.0); BILIRUBIN TOTAL 0.4 mg/dL (0.2-1.0); C-REACTIVE PROTEIN 1.56 mg/dL (<0.3); CALCIUM 9.5 mg/dL (8.5-10.1); CARBON DIOXIDE,CO2 42.2 mmol/L (21.0-32.0); CREATININE 0.6 mg/dL (0.6-1.0); EST CRCL DRUG DOSING (CG) 99.18 mL/min; MAGNESIUM 1.7 mg/dL (1.8-2.4); PROTEIN TOTAL,TP 7.1 g/dL (6.4-8.2)
[2023-05-03 08:22] LABS: CORONAVIRUS COVID-19 NAA NEGATIVE (NEGATIVE)
[2023-05-03 08:38] VITALS: PULSE 103
[2023-05-03 09:10] LABS: INFLUENZA A NAA NEGATIVE (NEGATIVE); INFLUENZA B NAA NEGATIVE (NEGATIVE)
== END 2023-05-03 08:38 | disposition home or self-care (01) ==
LOC: MW.ED 07:20
DX: J96.11 Chronic respiratory failure with hypoxia (principal); I11.0 Hypertensive heart disease with heart failure; I50.9 Heart failure, unspecified; J44.9 Chronic obstructive pulmonary disease, unspecified; E66.9 Obesity, unspecified; Z68.31 Body mass index [BMI] 31.0-31.9, adult; Z88.1 Allergy status to other antibiotic agents; Z88.8 Allergy status to other drugs, medicaments and biological substances; Z88.5 Allergy status to narcotic agent; Z79.899 Other long term (current) drug therapy; Z79.01 Long term (current) use of anticoagulants; Z20.822 Contact with and (suspected) exposure to COVID-19
CPT/HCPCS: 0240U; 36415; 71045; 80053; 82803; 83605; 83735; 83880; 84484; 85025; 86140; 93005; 96374; 99284; J2930; 93010; J7620-GY

== ENCOUNTER 2023-05-17 18:31 | Emergency (ER) | payer OTHER ==
[2023-05-17] MEDS ORDERED: Sodium Chloride 0.9% 2.5 ML Syringe FLUSH PRN (18:43)
[2023-05-17] MEDS ORDERED: methylPREDNISolone Sodium Succinate 125 MG/2 ML SDV IVPUSH ONE (18:43)
[2023-05-17] MEDS ORDERED: Albuterol 0.083% 2.5 MG/3 ML Neb Soln NEB ONE ×2 (18:43→21:34)
[2023-05-17] MEDS ORDERED: Albuterol/Ipratropium 3.0-0.5 MG/3 ML Neb Soln NEB ONE ×2 (18:43→21:35)
[2023-05-17] MEDS ORDERED: Sodium Chloride 0.9% 10 ML Syringe FLUSH PRN (18:43)
[2023-05-17] MEDS ORDERED: Magnesium Sulfate/Water 2 GM in Premix Bag 1 BAG IV ONE (18:43)
[2023-05-17] MEDS ORDERED: Acetaminophen 500 MG Tab PO ONE (18:57)
[2023-05-17 19:11] LABS: BASOPHILS ABSOLUTE AUTO 0.03 K/uL (0.00-0.20); BASOPHILS PERCENT AUTO 0.3 % (0.0-1.0); EOSINOPHILS ABSOLUTE AUTO 0.08 K/uL (0.00-0.45); EOSINOPHILS PERCENT AUTO 0.7 % (0.0-6.0); HEMATOCRIT 44.6 % (37.0-47.0); HEMOGLOBIN 13.4 g/dL (12.0-16.0); IMMATURE GRAN ABSOLUTE AUTO 0.03 K/uL (0.00-0.05); IMMATURE GRAN PERCENT AUTO 0.3 % (0.0-0.4); LYMPHOCYTES ABSOLUTE AUTO 1.92 K/uL (1.00-4.80); LYMPHOCYTES PERCENT AUTO 17.7 % (24.0-44.0); MEAN CORPUSCULAR HEMOGLOBIN 30.7 pg (28.0-32.0); MEAN CORPUSCULAR VOLUME 102.1 fL (83.0-99.0); MEAN PLATELET VOLUME 10.1 fL (9.4-12.3); MONOCYTES ABSOLUTE AUTO 0.85 K/uL (0.00-0.80); MONOCYTES PERCENT AUTO 7.8 % (0.0-8.0); NEUTROPHILS ABSOLUTE AUTO 7.95 K/uL (1.80-7.70); NEUTROPHILS PERCENT AUTO 73.2 % (41.0-71.0); PLATELET COUNT,PLT 232 K/uL (150-400); RED BLOOD CELL COUNT 4.37 M/uL (4.10-5.30); WHITE BLOOD CELL COUNT,WBC 10.86 K/uL (3.9-11.3)
[2023-05-17 19:14] LABS: PCO2 VENOUS > 98 mmHG (41-51); PH,VENOUS 7.31 (7.31-7.41); PO2 VENOUS < 30 mmHG
[2023-05-17 19:40] LABS: A/G RATIO 0.9 (0.9-1.6); ALBUMIN 3.1 g/dL (3.4-5.0); BILIRUBIN TOTAL 0.2 mg/dL (0.2-1.0); CREATININE 0.5 mg/dL (0.6-1.0); EST CRCL DRUG DOSING (CG) 119.01 mL/min; POTASSIUM,K 3.6 mmol/L (3.5-5.1); PROTEIN TOTAL,TP 6.5 g/dL (6.4-8.2)
[2023-05-17 19:47] LABS: CORONAVIRUS COVID-19 NAA NEGATIVE (NEGATIVE); INFLUENZA A NAA NEGATIVE (NEGATIVE); INFLUENZA B NAA NEGATIVE (NEGATIVE); RESPIRATORY SYNCYTIAL VIR NAA NEGATIVE (NEGATIVE)
[2023-05-17 21:20] LABS: BICARBONATE,ARTERIAL 53 mEq/L (22-26); PCO2 ARTERIAL 107 mmHG (35-45); PO2 ARTERIAL 59 mmHG (80-105)
[2023-05-17] MEDS ORDERED: Ketamine 500 mg/10 ML MDV IV ONE (22:09)
[2023-05-17] MEDS ORDERED: Rocuronium 100 MG/10 ML MDV IV STA (22:10)
[2023-05-17] MEDS ORDERED: fentaNYL/Normal Saline 2,500 MCG in Premix Bag 1 BAG IV STA (22:10)
[2023-05-17] MEDS ORDERED: propofoL 100 ML IV SCH (22:15)
[2023-05-17 22:44] LABS: BICARBONATE,ARTERIAL 52 mEq/L (22-26); PCO2 ARTERIAL 103 mmHG (35-45); PO2 ARTERIAL 246 mmHG (80-105)
[2023-05-17 23:39] VITALS: BP 112/76; PULSE 95
== END 2023-05-17 23:53 ==
LOC: MW.ED 18:31
DX: J96.21 Acute and chronic respiratory failure with hypoxia (principal); J96.22 Acute and chronic respiratory failure with hypercapnia; J44.9 Chronic obstructive pulmonary disease, unspecified; I11.0 Hypertensive heart disease with heart failure; I50.9 Heart failure, unspecified; E78.00 Pure hypercholesterolemia, unspecified; E66.9 Obesity, unspecified; Z90.49 Acquired absence of other specified parts of digestive tract; Z79.899 Other long term (current) drug therapy; Z88.1 Allergy status to other antibiotic agents; Z88.5 Allergy status to narcotic agent; Z88.6 Allergy status to analgesic agent; Z68.32 Body mass index [BMI] 32.0-32.9, adult; Z20.822 Contact with and (suspected) exposure to COVID-19
CPT/HCPCS: 0241U; 36415; 36600; 71045; 80053; 82803; 83880; 84484; 85025; 93005; 94640; 94660; 96365; 96375; 99291; A9270; J2930; J3475; J3490; 93010; 99292; J7620-GY

== ENCOUNTER 2023-05-29 07:15 | Inpatient (IN) | payer OTHER ==
[2023-05-29] MEDS ORDERED: Albuterol/Ipratropium 3.0-0.5 MG/3 ML Neb Soln NEB ONE (07:28)
[2023-05-29 07:33] LABS: BASOPHILS ABSOLUTE AUTO 0.07 K/uL (0.00-0.20); BASOPHILS PERCENT AUTO 0.4 % (0.0-1.0); EOSINOPHILS ABSOLUTE AUTO 0.03 K/uL (0.00-0.45); EOSINOPHILS PERCENT AUTO 0.2 % (0.0-6.0); HEMATOCRIT 48.4 % (37.0-47.0); HEMOGLOBIN 14.7 g/dL (12.0-16.0); IMMATURE GRAN ABSOLUTE AUTO 0.21 K/uL (0.00-0.05); IMMATURE GRAN PERCENT AUTO 1.2 % (0.0-0.4); LYMPHOCYTES ABSOLUTE AUTO 2.16 K/uL (1.00-4.80); LYMPHOCYTES PERCENT AUTO 12.4 % (24.0-44.0); MEAN CORPUSCULAR HEMOGLOBIN 31.1 pg (28.0-32.0); MEAN CORPUSCULAR HGB CONC 30.4 g/dL (32.0-36.0); MEAN CORPUSCULAR VOLUME 102.3 fL (83.0-99.0); MEAN PLATELET VOLUME 10.5 fL (9.4-12.3); MONOCYTES ABSOLUTE AUTO 1.49 K/uL (0.00-0.80); MONOCYTES PERCENT AUTO 8.6 % (0.0-8.0); NEUTROPHILS ABSOLUTE AUTO 13.41 K/uL (1.80-7.70); NEUTROPHILS PERCENT AUTO 77.2 % (41.0-71.0); PLATELET COUNT,PLT 354 K/uL (150-400); RED BLOOD CELL COUNT 4.73 M/uL (4.10-5.30); WHITE BLOOD CELL COUNT,WBC 17.37 K/uL (3.9-11.3)
[2023-05-29 07:39] LABS: PH,VENOUS 7.22 (7.31-7.41)
[2023-05-29 08:04] LABS: ALBUMIN 3.5 g/dL (3.4-5.0); BILIRUBIN TOTAL 0.2 mg/dL (0.2-1.0); CALCIUM 8.9 mg/dL (8.5-10.1); CARBON DIOXIDE,CO2 44.2 mmol/L (21.0-32.0); CREATININE 0.5 mg/dL (0.6-1.0); EST CRCL DRUG DOSING (CG) 119.01 mL/min; POTASSIUM,K 4.6 mmol/L (3.5-5.1); PROTEIN TOTAL,TP 6.9 g/dL (6.4-8.2)
[2023-05-29 08:37] LABS: BICARBONATE,ARTERIAL 44 mEq/L (22-26); PCO2 ARTERIAL 109 mmHG (35-45); PO2 ARTERIAL 60 mmHG (80-105)
[2023-05-29] MEDS ORDERED: methylPREDNISolone Sodium Succinate 125 MG/2 ML SDV IVPUSH ONE (09:25)
[2023-05-29 10:45] LABS: PCO2 ARTERIAL 111 mmHG (35-45); PO2 ARTERIAL 67 mmHG (80-105)
[2023-05-29 10:46] LABS: BICARBONATE,ARTERIAL 45 mEq/L (22-26)
[2023-05-29 14:01] LABS: BICARBONATE,ARTERIAL 45 mEq/L (22-26); PCO2 ARTERIAL 113 mmHG (35-45); PO2 ARTERIAL 74 mmHG (80-105)
[2023-05-29] MEDS ORDERED: Ondansetron 4 MG/2 ML SDV IVPUSH PRN (14:59)
[2023-05-29] MEDS ORDERED: Acetaminophen 325 MG Tab PO PRN (14:59)
[2023-05-29] MEDS ORDERED: Enoxaparin 40 MG/0.4 ML Syringe SUBCUT SCH (15:00)
[2023-05-29] MEDS: Sodium Chloride 0.9% 1,000 ML IV SCH (16:06)
[2023-05-29] MEDS: Pantoprazole 40 MG in Sodium Chloride 0.9% 10 ML IVPUSH SCH (16:06)
[2023-05-29] MEDS: Piperacillin/Tazobactam 3.375 GM in Sodium Chloride 0.9% 100 ML IV SCH ×2 (16:06→23:05)
[2023-05-29 17:21] LABS: BICARBONATE,ARTERIAL 47 mEq/L (22-26); PCO2 ARTERIAL 114 mmHG (35-45); PO2 ARTERIAL 70 mmHG (80-105)
[2023-05-29 17:52] LABS: CORONAVIRUS COVID-19 NAA NEGATIVE (NEGATIVE); INFLUENZA A NAA NEGATIVE (NEGATIVE); INFLUENZA B NAA NEGATIVE (NEGATIVE); RESPIRATORY SYNCYTIAL VIR NAA NEGATIVE (NEGATIVE)
[2023-05-29] MEDS: Albuterol/Ipratropium 3.0-0.5 MG/3 ML Neb Soln NEB SCH ×2 (18:24→21:10)
[2023-05-29] MEDS: Apixaban 5 MG Tab PO SCH (21:04)
[2023-05-29 21:17] LABS: BASE EXCESS ARTERIAL 13.4 (-2.0-3.0); BICARBONATE,ARTERIAL 44 mEq/L (22-26); PCO2 ARTERIAL 96 mmHG (35-45); PO2 ARTERIAL 72 mmHG (80-105)
[2023-05-29] MEDS ORDERED: acetaZOLAMIDE 250 MG Tab PO SCH (22:00)
[2023-05-30] MEDS: Sodium Chloride 0.9% 1,000 ML IV SCH (00:32)
[2023-05-30] MEDS: Albuterol/Ipratropium 3.0-0.5 MG/3 ML Neb Soln NEB SCH ×3 (01:31→10:08)
[2023-05-30 05:18] LABS: BASE EXCESS ARTERIAL 14.3 (-2.0-3.0); BICARBONATE,ARTERIAL 44 mEq/L (22-26); PCO2 ARTERIAL 92 mmHG (35-45); PO2 ARTERIAL 70 mmHG (80-105)
[2023-05-30 06:29] LABS: HEMATOCRIT 41.4 % (37.0-47.0); HEMOGLOBIN 12.4 g/dL (12.0-16.0); MEAN CORPUSCULAR HEMOGLOBIN 30.5 pg (28.0-32.0); MEAN CORPUSCULAR VOLUME 101.7 fL (83.0-99.0); MEAN PLATELET VOLUME 10.3 fL (9.4-12.3); PLATELET COUNT,PLT 260 K/uL (150-400); RED BLOOD CELL COUNT 4.07 M/uL (4.10-5.30); WHITE BLOOD CELL COUNT,WBC 15.46 K/uL (3.9-11.3)
[2023-05-30] MEDS: Piperacillin/Tazobactam 3.375 GM in Sodium Chloride 0.9% 100 ML IV SCH ×3 (06:29→22:38)
[2023-05-30] MEDS: Pantoprazole 40 MG in Sodium Chloride 0.9% 10 ML IVPUSH SCH (06:31)
[2023-05-30 06:52] LABS: ALBUMIN 2.9 g/dL (3.4-5.0); BILIRUBIN TOTAL 0.2 mg/dL (0.2-1.0); CALCIUM 8.5 mg/dL (8.5-10.1); CARBON DIOXIDE,CO2 42.8 mmol/L (21.0-32.0); CREATININE 0.5 mg/dL (0.6-1.0); EST CRCL DRUG DOSING (CG) 119.01 mL/min; POTASSIUM,K 5.1 mmol/L (3.5-5.1); PROTEIN TOTAL,TP 5.8 g/dL (6.4-8.2)
[2023-05-30] MEDS: methylPREDNISolone Sodium Succinate 40 MG/1 ML SDV IVPUSH SCH ×2 (09:13→20:57)
[2023-05-30] MEDS: Apixaban 5 MG Tab PO SCH ×2 (09:13→20:58)
[2023-05-30] MEDS ORDERED: Albuterol/Ipratropium 3.0-0.5 MG/3 ML Neb Soln NEB PRN (12:08)
[2023-05-31 06:06] LABS: HEMOGLOBIN 12.2 g/dL (12.0-16.0); MEAN CORPUSCULAR HEMOGLOBIN 30.8 pg (28.0-32.0); MEAN CORPUSCULAR HGB CONC 30.5 g/dL (32.0-36.0); MEAN PLATELET VOLUME 10.5 fL (9.4-12.3); PLATELET COUNT,PLT 257 K/uL (150-400); RED BLOOD CELL COUNT 3.96 M/uL (4.10-5.30); WHITE BLOOD CELL COUNT,WBC 12.74 K/uL (3.9-11.3)
[2023-05-31 06:32] LABS: ALBUMIN 2.9 g/dL (3.4-5.0); BILIRUBIN TOTAL 0.1 mg/dL (0.2-1.0); CALCIUM 8.6 mg/dL (8.5-10.1); CARBON DIOXIDE,CO2 44.5 mmol/L (21.0-32.0); CREATININE 0.4 mg/dL (0.6-1.0); EST CRCL DRUG DOSING (CG) 148.76 mL/min; POTASSIUM,K 5.5 mmol/L (3.5-5.1); PROTEIN TOTAL,TP 5.8 g/dL (6.4-8.2)
[2023-05-31] MEDS: Piperacillin/Tazobactam 3.375 GM in Sodium Chloride 0.9% 100 ML IV SCH (06:42)
[2023-05-31] MEDS: Pantoprazole 40 MG in Sodium Chloride 0.9% 10 ML IVPUSH SCH (06:42)
[2023-05-31] MEDS ORDERED: Fluticasone/Umeclidin/Vilanter [Trelegy Ellipta 100-62.5- INH SCH (09:00)
[2023-05-31] MEDS ORDERED: Lisinopril 10 MG Tab PO SCH (09:00)
[2023-05-31] MEDS: Apixaban 5 MG Tab PO SCH (09:28)
[2023-05-31] MEDS: methylPREDNISolone Sodium Succinate 40 MG/1 ML SDV IVPUSH SCH (09:28)
[2023-05-31 13:06] VITALS: BP 138/87; PULSE 84
== END 2023-05-31 12:15 | disposition home or self-care (01) | DRG 189 ==
LOC: MW.ED 07:15 → MW.ICU 14:35 → MW.MS 05-30 19:30
PROVIDERS: ADMIT Family Medicine; ATTEND Family Medicine
PROC: 5A09457 Assistance with Respiratory Ventilation, 24-96 Consecutive Hours, Continuous Positive Airway Pressure (ICD-10-PCS; principal; 2023-05-29)
PROC: 4A133R1 Monitoring of Arterial Saturation, Peripheral, Percutaneous Approach (ICD-10-PCS; 2023-05-29)
DX: J96.21 Acute and chronic respiratory failure with hypoxia (principal); J44.1 Chronic obstructive pulmonary disease with (acute) exacerbation; E66.2 Morbid (severe) obesity with alveolar hypoventilation; J96.22 Acute and chronic respiratory failure with hypercapnia; F17.200 Nicotine dependence, unspecified, uncomplicated; E78.00 Pure hypercholesterolemia, unspecified; I11.0 Hypertensive heart disease with heart failure; I50.9 Heart failure, unspecified; G89.29 Other chronic pain; M54.9 Dorsalgia, unspecified; Z90.89 Acquired absence of other organs; Z98.51 Tubal ligation status; Z79.899 Other long term (current) drug therapy; Z99.81 Dependence on supplemental oxygen; Z79.01 Long term (current) use of anticoagulants; Z90.49 Acquired absence of other specified parts of digestive tract; Z11.52 Encounter for screening for COVID-19; Z68.33 Body mass index [BMI] 33.0-33.9, adult
CPT/HCPCS: 0241U; 36415; 36600; 71045; 71045-26; 80053; 82803; 82947; 85025; 85027; 94640; 94660; 96374; 99285; 99291; A9270-GY; C9113; J2543; J2920; J2930; J3490; J7030; J7620-GY

== ENCOUNTER 2024-08-05 12:21 | Emergency (ER) | payer OTHER ==
[2024-08-05 12:38] LABS: BASOPHILS ABSOLUTE AUTO 0.03 K/uL (0.00-0.20); BASOPHILS PERCENT AUTO 0.3 % (0.0-1.0); EOSINOPHILS ABSOLUTE AUTO 0.01 K/uL (0.00-0.45); EOSINOPHILS PERCENT AUTO 0.1 % (0.0-6.0); HEMATOCRIT 46.7 % (37.0-47.0); HEMOGLOBIN 14.2 g/dL (12.0-16.0); IMMATURE GRAN ABSOLUTE AUTO 0.13 K/uL (0.00-0.05); IMMATURE GRAN PERCENT AUTO 1.3 % (0.0-0.4); LYMPHOCYTES ABSOLUTE AUTO 0.35 K/uL (1.00-4.80); LYMPHOCYTES PERCENT AUTO 3.6 % (24.0-44.0); MEAN CORPUSCULAR HEMOGLOBIN 30.2 pg (28.0-32.0); MEAN CORPUSCULAR HGB CONC 30.4 g/dL (32.0-36.0); MEAN CORPUSCULAR VOLUME 99.4 fL (83.0-99.0); MEAN PLATELET VOLUME 10.3 fL (9.4-12.3); MONOCYTES ABSOLUTE AUTO 0.57 K/uL (0.00-0.80); MONOCYTES PERCENT AUTO 5.8 % (0.0-8.0); NEUTROPHILS ABSOLUTE AUTO 8.74 K/uL (1.80-7.70); NEUTROPHILS PERCENT AUTO 88.9 % (41.0-71.0); NRBC ABSOLUTE 0.02 K/uL (0.00-0.02); NRBC PERCENT 0.2 /100WBC (0.0-0.2); PLATELET COUNT,PLT 214 K/uL (150-400); WHITE BLOOD CELL COUNT,WBC 9.83 K/uL (3.9-11.3)
[2024-08-05] MEDS: cefTRIAXone 2 GM in Sodium Chloride 0.9% 50 ML IV ONE (12:48)
[2024-08-05] MEDS: Albuterol/Ipratropium 3.0-0.5 MG/3 ML Neb Soln NEB ONE ×2 (12:48→15:05)
[2024-08-05 12:54] LABS: INR 0.97 (0.86-1.11)
[2024-08-05 12:54] LABS: PCO2 ARTERIAL > 130 mmHG (35-45); PO2 ARTERIAL 125 mmHG (80-105)
[2024-08-05 13:17] LABS: ALANINE AMINOTRANSFERASE,ALT 23 IU/L (14-63); ALBUMIN 3.5 g/dL (3.4-5.0); ALKALINE PHOSPHATASE 127 U/L (46-116); ASPARTATE AMNIOTRANSFERASE,AST 17 IU/L (15-37); BILIRUBIN TOTAL 0.3 mg/dL (0.2-1.0); BLOOD UREA NITROGEN,BUN 12 mg/dL (7.0-18.0); CALCIUM 8.7 mg/dL (8.5-10.1); CARBON DIOXIDE,CO2 42.9 mmol/L (21.0-32.0); CHLORIDE,CL 103 mmol/L (98-107); CREATININE 0.5 mg/dL (0.6-1.0); GLUCOSE RANDOM 135 mg/dL (74-106); LIPASE 50 U/L (16-77); MAGNESIUM 2.3 mg/dL (1.8-2.4); POTASSIUM,K 4.9 mmol/L (3.5-5.1); PRO B-TYPE NATRIUR PEPT,BNPPRO 945 pg/mL (0-125); PROTEIN TOTAL,TP 6.9 g/dL (6.4-8.2); SODIUM,NA 148 mmol/L (136-145)
[2024-08-05 13:21] LABS: ESTIMATED GFR 109 mL/min (>60)
[2024-08-05 13:32] LABS: CORONAVIRUS COVID-19 NAA NEGATIVE (NEGATIVE); INFLUENZA A NAA POSITIVE (NEGATIVE); INFLUENZA B NAA NEGATIVE (NEGATIVE); RESPIRATORY SYNCYTIAL VIR NAA NEGATIVE (NEGATIVE)
[2024-08-05 13:44] LABS: PCO2 ARTERIAL > 130 mmHG (35-45); PO2 ARTERIAL 99 mmHG (80-105)
[2024-08-05] MEDS: Doxycycline 100 MG in Sodium Chloride 0.9% 100 ML IV ONE (13:55)
[2024-08-05 15:09] LABS: PCO2 ARTERIAL > 130 mmHG (35-45); PO2 ARTERIAL 75 mmHG (80-105)
[2024-08-05] MEDS: Succinylcholine 200 MG/10 ML MDV IV ONE (15:15)
[2024-08-05] MEDS: Etomidate 2 MG/ML 20 ML SDV IVPUSH ONE (15:15)
[2024-08-05] MEDS: Magnesium Sulf/Wat 2 GM/50 mL 2 GM in Premix Bag 1 BAG IV ONE (15:15)
[2024-08-05 16:38] LABS: APPEARANCE,URINE CLEAR; BILIRUBIN,URINE NEGATIVE (NEGATIVE); COLOR,URINE YELLOW; GLUCOSE,URINE NEGATIVE (NEGATIVE); KETONES,URINE NEGATIVE (NEGATIVE); LEUKOCYTE ESTERASE,URINE NEGATIVE (NEGATIVE); NITRITE,URINE NEGATIVE (NEGATIVE); OCCULT BLOOD,URINE NEGATIVE (NEGATIVE); PH,URINE 5.5 (5.0-8.0); PROTEIN,URINE TRACE mg/dL (NEGATIVE); UROBILINOGEN,URINE 0.2 EU/dL (<2.0)
[2024-08-05 16:44] LABS: BACTERIA,URINE FEW (NEGATIVE); EPITHELIAL CELLS,URINE OCCASIONAL (NONE-FEW); RBC,URINE 0-2 (0-2/HPF); WBC,URINE 0-2 (0-5/HPF)
[2024-08-05] MEDS: fentaNYL/Normal Saline 2,500 MCG in Premix Bag 1 BAG IV PRN (17:55)
[2024-08-05] MEDS: propofoL 1,000 MG/100 ML 100 ML IV SCH (17:56)
[2024-08-05] MEDS: fentaNYL 100 MCG/2 ML SDV IVPUSH STA (18:13)
[2024-08-05] MEDS: Propofol 200 MG/20 ML SDV ONE (18:14)
[2024-08-05] MEDS: fentaNYL 100 MCG/2 ML SDV ONE (18:14)
[2024-08-05] MEDS: Propofol 200 MG/20 ML SDV IVPUSH ONE (18:15)
[2024-08-05] MEDS: Propofol 200 MG/20 ML SDV IVPUSH STA (18:48)
[2024-08-05 19:23] LABS: BICARBONATE,ARTERIAL 42 mEq/L (22-26)
[2024-08-05 19:45] VITALS: BP 111/74; PULSE 77
[2024-08-05 20:43] LABS: PCO2 ARTERIAL 93 mmHG (35-45); PO2 ARTERIAL 65 mmHG (80-105)
== END 2024-08-05 21:45 ==
LOC: MW.ED 12:21
DX: J96.21 Acute and chronic respiratory failure with hypoxia (principal); J44.1 Chronic obstructive pulmonary disease with (acute) exacerbation; J10.1 Influenza due to other identified influenza virus with other respiratory manifestations; E66.01 Morbid (severe) obesity due to excess calories; E87.29 Other acidosis; R41.82 Altered mental status, unspecified; I11.0 Hypertensive heart disease with heart failure; I50.9 Heart failure, unspecified; Z90.49 Acquired absence of other specified parts of digestive tract; Z88.5 Allergy status to narcotic agent; Z88.1 Allergy status to other antibiotic agents; Z88.8 Allergy status to other drugs, medicaments and biological substances; Z79.01 Long term (current) use of anticoagulants; Z79.52 Long term (current) use of systemic steroids; Z79.899 Other long term (current) drug therapy; Z99.81 Dependence on supplemental oxygen
CPT/HCPCS: 0241U; 31500; 36415; 36600; 51702; 71045; 80053; 81001; 82803; 83605; 83690; 83735; 83880; 84484; 85025; 85610; 87040; 93005; 94640; 96365; 96366; 96367; 96368; 99291; 99292; J0330; J0696; J2704; J3010; J3475; J3490; 93010; J7620-GY

== ENCOUNTER 2024-08-21 22:51 | Emergency (ER) | payer OTHER ==
[2024-08-21 23:27] LABS: BASOPHILS ABSOLUTE AUTO 0.02 K/uL (0.00-0.20); BASOPHILS PERCENT AUTO 0.2 % (0.0-1.0); HEMATOCRIT 45.7 % (37.0-47.0); HEMOGLOBIN 13.6 g/dL (12.0-16.0); IMMATURE GRAN ABSOLUTE AUTO 0.06 K/uL (0.00-0.05); IMMATURE GRAN PERCENT AUTO 0.5 % (0.0-0.4); LYMPHOCYTES ABSOLUTE AUTO 1.34 K/uL (1.00-4.80); LYMPHOCYTES PERCENT AUTO 11.8 % (24.0-44.0); MEAN CORPUSCULAR HEMOGLOBIN 29.8 pg (28.0-32.0); MEAN CORPUSCULAR HGB CONC 29.8 g/dL (32.0-36.0); MEAN PLATELET VOLUME 10.3 fL (9.4-12.3); MONOCYTES ABSOLUTE AUTO 0.99 K/uL (0.00-0.80); MONOCYTES PERCENT AUTO 8.7 % (0.0-8.0); NEUTROPHILS ABSOLUTE AUTO 8.91 K/uL (1.80-7.70); NEUTROPHILS PERCENT AUTO 78.8 % (41.0-71.0); PLATELET COUNT,PLT 301 K/uL (150-400); RED BLOOD CELL COUNT 4.57 M/uL (4.10-5.30); WHITE BLOOD CELL COUNT,WBC 11.32 K/uL (3.9-11.3)
[2024-08-21 23:52] LABS: A/G RATIO 0.9 (0.9-1.6); ALBUMIN 3.1 g/dL (3.4-5.0); BILIRUBIN TOTAL 0.4 mg/dL (0.2-1.0); CALCIUM 9.2 mg/dL (8.5-10.1); CARBON DIOXIDE,CO2 42.2 mmol/L (21.0-32.0); CREATININE 0.5 mg/dL (0.6-1.0); EST CRCL DRUG DOSING (CG) 111.7 mL/min; POTASSIUM,K 4.6 mmol/L (3.5-5.1); PROTEIN TOTAL,TP 6.7 g/dL (6.4-8.2)
[2024-08-21 23:55] LABS: LACTIC ACID 0.6 mmol/L (0.4-2.0)
[2024-08-22] MEDS ORDERED: Sodium Chloride 0.9% 2.5 ML Syringe FLUSH PRN (01:03)
[2024-08-22] MEDS ORDERED: Sodium Chloride 0.9% 10 ML Syringe FLUSH PRN (01:03)
[2024-08-22] MEDS ORDERED: VANCOmycin 2 GM/400 ML 400 ML IV ONE (01:15)
[2024-08-22] MEDS: LACTATED RINGERS IV SCH (01:20)
[2024-08-22] MEDS: Pantoprazole 40 MG in Sodium Chloride 0.9% 10 ML IVPUSH SCH (01:21)
[2024-08-22] MEDS: Ciprofloxacin in D5W 400 MG in Premix Bag 1 BAG IV ONE (01:21)
[2024-08-22] MEDS: Piperacillin/Tazobactam 4.5 GM in Sodium Chloride 0.9% 100 ML IV STA (01:21)
[2024-08-22 01:24] LABS: BASOPHILS ABSOLUTE AUTO 0.02 K/uL (0.00-0.20); BASOPHILS PERCENT AUTO 0.2 % (0.0-1.0); EOSINOPHILS ABSOLUTE AUTO 0.01 K/uL (0.00-0.45); EOSINOPHILS PERCENT AUTO 0.1 % (0.0-6.0); HEMATOCRIT 44.6 % (37.0-47.0); HEMOGLOBIN 13.4 g/dL (12.0-16.0); IMMATURE GRAN ABSOLUTE AUTO 0.07 K/uL (0.00-0.05); IMMATURE GRAN PERCENT AUTO 0.6 % (0.0-0.4); LYMPHOCYTES ABSOLUTE AUTO 1.26 K/uL (1.00-4.80); MEAN CORPUSCULAR HEMOGLOBIN 30.2 pg (28.0-32.0); MEAN CORPUSCULAR VOLUME 100.5 fL (83.0-99.0); MONOCYTES ABSOLUTE AUTO 1.18 K/uL (0.00-0.80); MONOCYTES PERCENT AUTO 9.3 % (0.0-8.0); NEUTROPHILS PERCENT AUTO 79.8 % (41.0-71.0); PLATELET COUNT,PLT 304 K/uL (150-400); RED BLOOD CELL COUNT 4.44 M/uL (4.10-5.30); WHITE BLOOD CELL COUNT,WBC 12.64 K/uL (3.9-11.3)
[2024-08-22 01:38] LABS: INR 1.02 (0.86-1.11); PTT,PARTIAL THROMBOPLSTIN TIME 22.9 SEC (23.9-30.7)
[2024-08-22 01:38] LABS: BICARBONATE,ARTERIAL 47 mEq/L (22-26); PCO2 ARTERIAL 127 mmHG (35-45); PO2 ARTERIAL 74 mmHG (80-105)
[2024-08-22 01:42] LABS: LACTIC ACID 0.6 mmol/L (0.4-2.0)
[2024-08-22 01:53] LABS: A/G RATIO 0.9 (0.9-1.6); BILIRUBIN TOTAL 0.4 mg/dL (0.2-1.0); C-REACTIVE PROTEIN 0.38 mg/dL (<0.3); CARBON DIOXIDE,CO2 42.5 mmol/L (21.0-32.0); CREATININE 0.4 mg/dL (0.6-1.0); EST CRCL DRUG DOSING (CG) 139.63 mL/min; POTASSIUM,K 4.3 mmol/L (3.5-5.1); PROTEIN TOTAL,TP 6.4 g/dL (6.4-8.2)
[2024-08-22 02:19] LABS: CORONAVIRUS COVID-19 NAA NEGATIVE (NEGATIVE); INFLUENZA A NAA NEGATIVE (NEGATIVE); INFLUENZA B NAA NEGATIVE (NEGATIVE); RESPIRATORY SYNCYTIAL VIR NAA NEGATIVE (NEGATIVE)
[2024-08-22] MEDS: Albuterol/Ipratropium 3.0-0.5 MG/3 ML Neb Soln NEB ONE (03:16)
[2024-08-22] MEDS: VANCOmycin 2 GM in Sodium Chloride 0.9% 500 ML IV ONE (03:55)
[2024-08-22 07:34] LABS: BICARBONATE,ARTERIAL 45 mEq/L (22-26); PCO2 ARTERIAL 89 mmHG (35-45); PO2 ARTERIAL 67 mmHG (80-105)
[2024-08-22 11:39] VITALS: BP 152/96; PULSE 109
== END 2024-08-22 11:38 ==
LOC: MW.ED 22:51
DX: J96.22 Acute and chronic respiratory failure with hypercapnia (principal); J18.9 Pneumonia, unspecified organism; J44.1 Chronic obstructive pulmonary disease with (acute) exacerbation; I11.0 Hypertensive heart disease with heart failure; I50.9 Heart failure, unspecified; E78.00 Pure hypercholesterolemia, unspecified; E66.9 Obesity, unspecified; Z88.8 Allergy status to other drugs, medicaments and biological substances; Z79.899 Other long term (current) drug therapy; Z90.49 Acquired absence of other specified parts of digestive tract; Z68.41 Body mass index [BMI] 40.0-44.9, adult
CPT/HCPCS: 0241U; 36415; 36600; 71045; 80053; 82803; 83605; 84145; 84484; 85025; 85610; 85730; 86140; 87040; 93005; 94640; 94660; 96365; 96366; 96367; 96375; 99285; J0744; J1100; J2470; J2543; J7040; J7120; 36410; 99284; A9270-GY

== ENCOUNTER 2024-10-23 06:46 | Emergency (ER) | payer OTHER ==
[2024-10-23] MEDS ORDERED: predniSONE 1 MG Tab PO ONE (07:10)
[2024-10-23] MEDS: predniSONE 20 MG Tab PO ONE (07:48)
[2024-10-23] MEDS: Albuterol/Ipratropium 3.0-0.5 MG/3 ML Neb Soln NEB ONE (07:52)
[2024-10-23 07:53] LABS: BASOPHILS ABSOLUTE AUTO 0.04 K/uL (0.00-0.20); BASOPHILS PERCENT AUTO 0.4 % (0.0-1.0); EOSINOPHILS ABSOLUTE AUTO 0.04 K/uL (0.00-0.45); EOSINOPHILS PERCENT AUTO 0.4 % (0.0-6.0); HEMOGLOBIN 12.9 g/dL (12.0-16.0); LYMPHOCYTES ABSOLUTE AUTO 1.08 K/uL (1.00-4.80); LYMPHOCYTES PERCENT AUTO 11.3 % (24.0-44.0); MEAN CORPUSCULAR HEMOGLOBIN 29.1 pg (28.0-32.0); MEAN CORPUSCULAR HGB CONC 31.5 g/dL (32.0-36.0); MEAN CORPUSCULAR VOLUME 92.3 fL (83.0-99.0); MEAN PLATELET VOLUME 10.9 fL (9.4-12.3); MONOCYTES ABSOLUTE AUTO 0.68 K/uL (0.00-0.80); MONOCYTES PERCENT AUTO 7.1 % (0.0-8.0); NEUTROPHILS ABSOLUTE AUTO 7.66 K/uL (1.80-7.70); NEUTROPHILS PERCENT AUTO 79.8 % (41.0-71.0); PLATELET COUNT,PLT 212 K/uL (150-400); RED BLOOD CELL COUNT 4.44 M/uL (4.10-5.30)
[2024-10-23 08:10] LABS: BLOOD UREA NITROGEN,BUN 10 mg/dL (7.0-18.0); CALCIUM 8.9 mg/dL (8.5-10.1); CARBON DIOXIDE,CO2 40.4 mmol/L (21.0-32.0); CHLORIDE,CL 99 mmol/L (98-107); CREATININE 0.7 mg/dL (0.6-1.0); EST CRCL DRUG DOSING (CG) 83.01 mL/min; ESTIMATED GFR 101 mL/min (>60); GLUCOSE RANDOM 159 mg/dL (74-106); POTASSIUM,K 3.6 mmol/L (3.5-5.1); PRO B-TYPE NATRIUR PEPT,BNPPRO 129 pg/mL (0-125); SODIUM,NA 141 mmol/L (136-145)
[2024-10-23 08:52] LABS: CORONAVIRUS COVID-19 NAA NEGATIVE (NEGATIVE); INFLUENZA A NAA NEGATIVE (NEGATIVE); INFLUENZA B NAA NEGATIVE (NEGATIVE)
[2024-10-23] MEDS: Doxycycline Monohydrate 100 MG Cap PO ONE (09:01)
[2024-10-23 10:41] VITALS: BP 157/76; PULSE 95
== END 2024-10-23 10:40 | disposition home or self-care (01) ==
LOC: MW.ED 06:46
DX: J44.1 Chronic obstructive pulmonary disease with (acute) exacerbation (principal); J18.9 Pneumonia, unspecified organism; I11.0 Hypertensive heart disease with heart failure; I50.9 Heart failure, unspecified; E78.00 Pure hypercholesterolemia, unspecified; E66.9 Obesity, unspecified; Z68.41 Body mass index [BMI] 40.0-44.9, adult; Z90.49 Acquired absence of other specified parts of digestive tract; Z79.899 Other long term (current) drug therapy; Z88.5 Allergy status to narcotic agent; Z88.1 Allergy status to other antibiotic agents; Z88.8 Allergy status to other drugs, medicaments and biological substances
CPT/HCPCS: 0240U; 36415; 71045; 80048; 83880; 84484; 85025; 99285; A9270; J7620

== ENCOUNTER 2025-01-21 15:03 | Emergency (ER) | payer OTHER ==
[2025-01-21 15:37] LABS: BASOPHILS ABSOLUTE AUTO 0.03 K/uL (0.00-0.20); BASOPHILS PERCENT AUTO 0.3 % (0.0-1.0); EOSINOPHILS ABSOLUTE AUTO 0.05 K/uL (0.00-0.45); EOSINOPHILS PERCENT AUTO 0.4 % (0.0-6.0); IMMATURE GRAN ABSOLUTE AUTO 0.05 K/uL (0.00-0.05); IMMATURE GRAN PERCENT AUTO 0.4 % (0.0-0.4); LYMPHOCYTES ABSOLUTE AUTO 0.82 K/uL (1.00-4.80); LYMPHOCYTES PERCENT AUTO 7.2 % (24.0-44.0); MEAN PLATELET VOLUME 10.5 fL (9.4-12.3); MONOCYTES ABSOLUTE AUTO 0.79 K/uL (0.00-0.80); MONOCYTES PERCENT AUTO 6.9 % (0.0-8.0); NEUTROPHILS ABSOLUTE AUTO 9.70 K/uL (1.80-7.70); NEUTROPHILS PERCENT AUTO 84.8 % (41.0-71.0); NRBC ABSOLUTE 0.00 K/uL (0.00-0.02); NRBC PERCENT 0.0 /100WBC (0.0-0.2); PLATELET COUNT,PLT 225 K/uL (150-400); RED BLOOD CELL COUNT 4.55 M/uL (4.10-5.30); WHITE BLOOD CELL COUNT,WBC 11.44 K/uL (3.9-11.3)
[2025-01-21] MEDS: methylPREDNISolone Sodium Succinate 125 MG/2 ML SDV IVPUSH ONE (15:37)
[2025-01-21 15:47] LABS: BLOOD UREA NITROGEN,BUN 11 mg/dL (7.0-18.0); CARBON DIOXIDE,CO2 41.2 mmol/L (21.0-32.0); CHLORIDE,CL 100 mmol/L (98-107); CREATININE 0.7 mg/dL (0.6-1.0); GLUCOSE RANDOM 191 mg/dL (74-106); POTASSIUM,K 4.0 mmol/L (3.5-5.1); SODIUM,NA 143 mmol/L (136-145)
[2025-01-21 15:50] LABS: ESTIMATED GFR 101 mL/min (>60)
[2025-01-21] MEDS: Magnesium Sulfate 2 GM/50 mL 2 GM in Premix Bag 1 BAG IV ONE (16:06)
[2025-01-21 16:07] LABS: PCO2 VENOUS 70.0 mmHG (41-51); PH,VENOUS 7.4 (7.32-7.43)
[2025-01-21 16:08] LABS: BASE EXCESS VENOUS 15.1 (-2.0-3.0); BICARBONATE,VENOUS 43.0 mEq/L (22-29); PO2 VENOUS 42.0 mmHG (35-45)
[2025-01-21 17:00] VITALS: BP 106/55
[2025-01-21 17:30] VITALS: PULSE 89
== END 2025-01-21 17:29 | disposition home or self-care (01) ==
LOC: MW.ED 15:03
DX: J44.1 Chronic obstructive pulmonary disease with (acute) exacerbation (principal); I11.0 Hypertensive heart disease with heart failure; I50.9 Heart failure, unspecified; E78.00 Pure hypercholesterolemia, unspecified; Z88.1 Allergy status to other antibiotic agents; Z88.5 Allergy status to narcotic agent; Z79.899 Other long term (current) drug therapy; Z79.01 Long term (current) use of anticoagulants; Z79.51 Long term (current) use of inhaled steroids
CPT/HCPCS: 36415; 71045; 80048; 82803; 83735; 84484; 85025; 96365; 96375; 99285; J2919; J3475; J7620; Q0144; 99284; A9270-GY

== ENCOUNTER 2025-02-11 05:28 | Inpatient (IN) | payer OTHER ==
[2025-02-11] MEDS ORDERED: Sodium Chloride 0.9% 10 ML Syringe FLUSH PRN ×2 (05:58→10:46)
[2025-02-11] MEDS ORDERED: Sodium Chloride 0.9% 2.5 ML Syringe FLUSH PRN ×2 (05:58→10:46)
[2025-02-11 06:04] LABS: PCO2 VENOUS 84.0 mmHG (41-51); PH,VENOUS 7.42 (7.32-7.43)
[2025-02-11 06:05] LABS: BASE EXCESS VENOUS 24.2 (-2.0-3.0); BASOPHILS ABSOLUTE AUTO 0.03 K/uL (0.00-0.20); BASOPHILS PERCENT AUTO 0.3 % (0.0-1.0); BICARBONATE,VENOUS 55.0 mEq/L (22-29); EOSINOPHILS ABSOLUTE AUTO 0.06 K/uL (0.00-0.45); EOSINOPHILS PERCENT AUTO 0.7 % (0.0-6.0); IMMATURE GRAN ABSOLUTE AUTO 0.06 K/uL (0.00-0.05); IMMATURE GRAN PERCENT AUTO 0.7 % (0.0-0.4); LYMPHOCYTES ABSOLUTE AUTO 1.12 K/uL (1.00-4.80); LYMPHOCYTES PERCENT AUTO 12.3 % (24.0-44.0); MEAN PLATELET VOLUME 9.8 fL (9.4-12.3); MONOCYTES ABSOLUTE AUTO 0.72 K/uL (0.00-0.80); MONOCYTES PERCENT AUTO 7.9 % (0.0-8.0); NEUTROPHILS ABSOLUTE AUTO 7.13 K/uL (1.80-7.70); NEUTROPHILS PERCENT AUTO 78.1 % (41.0-71.0); NRBC ABSOLUTE 0.00 K/uL (0.00-0.02); NRBC PERCENT 0.0 /100WBC (0.0-0.2); PLATELET COUNT,PLT 184 K/uL (150-400); PO2 VENOUS 21.0 mmHG (35-45); RED BLOOD CELL COUNT 4.51 M/uL (4.10-5.30); WHITE BLOOD CELL COUNT,WBC 9.12 K/uL (3.9-11.3)
[2025-02-11] MEDS: methylPREDNISolone Sodium Succinate 125 MG/2 ML SDV IVPUSH ONE (06:06)
[2025-02-11 06:13] LABS: INR 0.97 (0.86-1.11); PTT,PARTIAL THROMBOPLSTIN TIME 24.5 SEC (23.9-30.7)
[2025-02-11 06:30] LABS: A/G RATIO 1.0 (0.9-1.6); ALANINE AMINOTRANSFERASE,ALT 25.0 IU/L (14-63); ASPARTATE AMNIOTRANSFERASE,AST 19.0 IU/L (15-37); BILIRUBIN TOTAL 0.7 mg/dL (0.2-1.0); BLOOD UREA NITROGEN,BUN 11.0 mg/dL (7.0-18.0); CHLORIDE,CL 96.0 mmol/L (98-107); CREATININE 0.5 mg/dL (0.6-1.0); EST CRCL DRUG DOSING (CG) 116.21 mL/min; GLUCOSE RANDOM 104.0 mg/dL (74-106); POTASSIUM,K 4.6 mmol/L (3.5-5.1); PRO B-TYPE NATRIUR PEPT,BNPPRO 279.0 pg/mL (0-125); PROTEIN TOTAL,TP 6.7 g/dL (6.4-8.2); SODIUM,NA 141.0 mmol/L (136-145)
[2025-02-11 06:36] LABS: ESTIMATED GFR 109.0 mL/min (>60)
[2025-02-11 06:40] LABS: CARBON DIOXIDE,CO2 47.8 mmol/L (21.0-32.0)
[2025-02-11] MEDS: cefTRIAXone 2 GM in Water For Injection, Sterile 20 ML IVPUSH ONE (08:40)
[2025-02-11] MEDS ORDERED: Ketorolac 30 MG/ML SDV IVPUSH PRN (10:46)
[2025-02-11] MEDS ORDERED: Ondansetron 4 MG Tab.DIS PO PRN (10:46)
[2025-02-11] MEDS: Levofloxacin/Dextrose 5%-Water 750 MG in Premix Bag 1 BAG IV SCH (12:42)
[2025-02-11] MEDS: GLYCOPYR INH SCH (12:58)
[2025-02-11] MEDS: FORMOTEROL INH SCH (12:58)
[2025-02-11] MEDS: BUDESONIDE INH SCH (12:58)
[2025-02-12 05:54] LABS: BASOPHILS ABSOLUTE AUTO 0.02 K/uL (0.00-0.20); BASOPHILS PERCENT AUTO 0.2 % (0.0-1.0); EOSINOPHILS ABSOLUTE AUTO 0.02 K/uL (0.00-0.45); EOSINOPHILS PERCENT AUTO 0.2 % (0.0-6.0); IMMATURE GRAN ABSOLUTE AUTO 0.06 K/uL (0.00-0.05); IMMATURE GRAN PERCENT AUTO 0.5 % (0.0-0.4); LYMPHOCYTES ABSOLUTE AUTO 1.62 K/uL (1.00-4.80); LYMPHOCYTES PERCENT AUTO 14.7 % (24.0-44.0); MEAN PLATELET VOLUME 10.3 fL (9.4-12.3); MONOCYTES ABSOLUTE AUTO 0.97 K/uL (0.00-0.80); MONOCYTES PERCENT AUTO 8.8 % (0.0-8.0); NEUTROPHILS ABSOLUTE AUTO 8.32 K/uL (1.80-7.70); NEUTROPHILS PERCENT AUTO 75.6 % (41.0-71.0); NRBC ABSOLUTE 0.00 K/uL (0.00-0.02); NRBC PERCENT 0.0 /100WBC (0.0-0.2); PLATELET COUNT,PLT 197 K/uL (150-400); RED BLOOD CELL COUNT 4.58 M/uL (4.10-5.30); WHITE BLOOD CELL COUNT,WBC 11.01 K/uL (3.9-11.3)
[2025-02-12 07:08] LABS: A/G RATIO 1.0 (0.9-1.6); ALANINE AMINOTRANSFERASE,ALT 16.0 IU/L (14-63); ASPARTATE AMNIOTRANSFERASE,AST 10.0 IU/L (15-37); BILIRUBIN TOTAL 0.3 mg/dL (0.2-1.0); BLOOD UREA NITROGEN,BUN 15.0 mg/dL (7.0-18.0); CARBON DIOXIDE,CO2 39.7 mmol/L (21.0-32.0); CHLORIDE,CL 100.0 mmol/L (98-107); CREATININE 0.6 mg/dL (0.6-1.0); EST CRCL DRUG DOSING (CG) 96.84 mL/min; GLUCOSE RANDOM 104.0 mg/dL (74-106); POTASSIUM,K 4.6 mmol/L (3.5-5.1); PROTEIN TOTAL,TP 6.2 g/dL (6.4-8.2); SODIUM,NA 143.0 mmol/L (136-145)
[2025-02-12 07:33] LABS: ESTIMATED GFR 105.0 mL/min (>60)
[2025-02-12 12:42] VITALS: BP 135/73; PULSE 95
[2025-02-13 05:08] LABS: BORDETELLA PARAPERT IS1001 Not Detected (Not Detected)
== END 2025-02-12 14:35 | disposition home or self-care (01) | DRG 193 ==
LOC: MW.ED 05:28 → MW.MS 09:14
PROVIDERS: ADMIT Internal Medicine; ATTEND Internal Medicine
PROC: 5A09357 Assistance with Respiratory Ventilation, Less than 24 Consecutive Hours, Continuous Positive Airway Pressure (ICD-10-PCS; principal; 2025-02-11)
DX: J18.9 Pneumonia, unspecified organism (principal); J96.21 Acute and chronic respiratory failure with hypoxia; J96.22 Acute and chronic respiratory failure with hypercapnia; J44.1 Chronic obstructive pulmonary disease with (acute) exacerbation; Z68.41 Body mass index [BMI] 40.0-44.9, adult; J44.0 Chronic obstructive pulmonary disease with (acute) lower respiratory infection; E78.00 Pure hypercholesterolemia, unspecified; I50.9 Heart failure, unspecified; I11.0 Hypertensive heart disease with heart failure; E86.0 Dehydration; M54.9 Dorsalgia, unspecified; G89.29 Other chronic pain; E66.9 Obesity, unspecified; Z90.49 Acquired absence of other specified parts of digestive tract; Z98.51 Tubal ligation status; Z88.8 Allergy status to other drugs, medicaments and biological substances; Z79.899 Other long term (current) drug therapy; Z79.01 Long term (current) use of anticoagulants; Z99.81 Dependence on supplemental oxygen; Z98.890 Other specified postprocedural states
CPT/HCPCS: 36415; 71045; 71045-26; 80053; 82803; 83605; 83735; 83880; 84484; 85025; 85610; 85730; 87040; 87486; 87581; 87633; 87641; 87899; 93005; 93010; 94640; 94660; 96365; 96375; 99285; 99285-25; A4216; A9270-GY; J0696; J1271; J1956; J2919; J7030

== ENCOUNTER 2025-03-03 19:25 | Emergency (ER) | payer OTHER ==
[2025-03-03] MEDS ORDERED: Sodium Chloride 0.9% 2.5 ML Syringe FLUSH PRN (19:56)
[2025-03-03] MEDS ORDERED: Sodium Chloride 0.9% 10 ML Syringe FLUSH PRN (19:56)
[2025-03-03 20:15] LABS: BASOPHILS ABSOLUTE AUTO 0.02 K/uL (0.00-0.20); BASOPHILS PERCENT AUTO 0.3 % (0.0-1.0); EOSINOPHILS ABSOLUTE AUTO 0.09 K/uL (0.00-0.45); EOSINOPHILS PERCENT AUTO 1.3 % (0.0-6.0); IMMATURE GRAN ABSOLUTE AUTO 0.02 K/uL (0.00-0.05); IMMATURE GRAN PERCENT AUTO 0.3 % (0.0-0.4); LYMPHOCYTES ABSOLUTE AUTO 1.33 K/uL (1.00-4.80); LYMPHOCYTES PERCENT AUTO 18.7 % (24.0-44.0); MEAN PLATELET VOLUME 10.5 fL (9.4-12.3); MONOCYTES ABSOLUTE AUTO 0.56 K/uL (0.00-0.80); MONOCYTES PERCENT AUTO 7.9 % (0.0-8.0); NEUTROPHILS ABSOLUTE AUTO 5.08 K/uL (1.80-7.70); NEUTROPHILS PERCENT AUTO 71.5 % (41.0-71.0); NRBC ABSOLUTE 0.00 K/uL (0.00-0.02); NRBC PERCENT 0.0 /100WBC (0.0-0.2); PLATELET COUNT,PLT 186 K/uL (150-400); RED BLOOD CELL COUNT 4.11 M/uL (4.10-5.30); WHITE BLOOD CELL COUNT,WBC 7.10 K/uL (3.9-11.3)
[2025-03-03] MEDS: Magnesium Sulfate 2 GM/50 mL 2 GM in Premix Bag 1 BAG IV ONE (20:21)
[2025-03-03] MEDS: methylPREDNISolone Sodium Succinate 125 MG/2 ML SDV IVPUSH ONE (20:21)
[2025-03-03 20:44] LABS: A/G RATIO 1.0 (0.9-1.6); ALANINE AMINOTRANSFERASE,ALT 16.0 IU/L (14-63); ASPARTATE AMNIOTRANSFERASE,AST 18.0 IU/L (15-37); BILIRUBIN TOTAL 0.3 mg/dL (0.2-1.0); BLOOD UREA NITROGEN,BUN 8.0 mg/dL (7.0-18.0); CARBON DIOXIDE,CO2 39.1 mmol/L (21.0-32.0); CHLORIDE,CL 100.0 mmol/L (98-107); CREATININE 0.6 mg/dL (0.6-1.0); EST CRCL DRUG DOSING (CG) 96.84 mL/min; GLUCOSE RANDOM 129.0 mg/dL (74-106); POTASSIUM,K 3.8 mmol/L (3.5-5.1); PRO B-TYPE NATRIUR PEPT,BNPPRO 144.0 pg/mL (0-125); PROTEIN TOTAL,TP 5.9 g/dL (6.4-8.2); SODIUM,NA 142.0 mmol/L (136-145)
[2025-03-03 20:49] LABS: ESTIMATED GFR 105.0 mL/min (>60)
[2025-03-03 23:10] VITALS: BP 128/76; PULSE 98
== END 2025-03-03 23:10 | disposition left against medical advice (07) ==
LOC: MW.ED 19:25
DX: J44.1 Chronic obstructive pulmonary disease with (acute) exacerbation (principal); R09.02 Hypoxemia; I11.0 Hypertensive heart disease with heart failure; I50.9 Heart failure, unspecified; E78.00 Pure hypercholesterolemia, unspecified; E66.9 Obesity, unspecified; Z68.41 Body mass index [BMI] 40.0-44.9, adult; Z90.49 Acquired absence of other specified parts of digestive tract; Z88.1 Allergy status to other antibiotic agents; Z88.5 Allergy status to narcotic agent; Z88.8 Allergy status to other drugs, medicaments and biological substances; Z79.01 Long term (current) use of anticoagulants; Z79.899 Other long term (current) drug therapy
CPT/HCPCS: 36415; 71045; 80053; 83735; 83880; 84484; 85025; 93005; 96365; 96375; 99285; J2919; J3475; J7620; 99284; A9270-GY

== ENCOUNTER 2025-03-16 05:33 | Emergency (ER) | payer OTHER ==
[2025-03-16 06:31] LABS: BASOPHILS ABSOLUTE AUTO 0.02 K/uL (0.00-0.20); BASOPHILS PERCENT AUTO 0.2 % (0.0-1.0); EOSINOPHILS ABSOLUTE AUTO 0.05 K/uL (0.00-0.45); EOSINOPHILS PERCENT AUTO 0.6 % (0.0-6.0); IMMATURE GRAN ABSOLUTE AUTO 0.05 K/uL (0.00-0.05); IMMATURE GRAN PERCENT AUTO 0.6 % (0.0-0.4); LYMPHOCYTES ABSOLUTE AUTO 1.56 K/uL (1.00-4.80); LYMPHOCYTES PERCENT AUTO 17.2 % (24.0-44.0); MEAN PLATELET VOLUME 9.9 fL (9.4-12.3); MONOCYTES ABSOLUTE AUTO 0.72 K/uL (0.00-0.80); MONOCYTES PERCENT AUTO 7.9 % (0.0-8.0); NEUTROPHILS ABSOLUTE AUTO 6.67 K/uL (1.80-7.70); NEUTROPHILS PERCENT AUTO 73.5 % (41.0-71.0); NRBC ABSOLUTE 0.00 K/uL (0.00-0.02); NRBC PERCENT 0.0 /100WBC (0.0-0.2); PLATELET COUNT,PLT 230 K/uL (150-400); RED BLOOD CELL COUNT 4.29 M/uL (4.10-5.30); WHITE BLOOD CELL COUNT,WBC 9.07 K/uL (3.9-11.3)
[2025-03-16 06:58] LABS: A/G RATIO 0.9 (0.9-1.6); ALANINE AMINOTRANSFERASE,ALT 19.0 IU/L (14-63); ASPARTATE AMNIOTRANSFERASE,AST 17.0 IU/L (15-37); BILIRUBIN TOTAL 0.2 mg/dL (0.2-1.0); BLOOD UREA NITROGEN,BUN 9.0 mg/dL (7.0-18.0); CARBON DIOXIDE,CO2 44.9 mmol/L (21.0-32.0); CHLORIDE,CL 98.0 mmol/L (98-107); CREATININE 0.6 mg/dL (0.6-1.0); EST CRCL DRUG DOSING (CG) 96.84 mL/min; GLUCOSE RANDOM 95.0 mg/dL (74-106); POTASSIUM,K 4.0 mmol/L (3.5-5.1); PROTEIN TOTAL,TP 6.4 g/dL (6.4-8.2); SODIUM,NA 145.0 mmol/L (136-145)
[2025-03-16 06:59] LABS: ESTIMATED GFR 105.0 mL/min (>60)
[2025-03-16 08:34] VITALS: BP 113/56; PULSE 106
== END 2025-03-16 08:35 | disposition home or self-care (01) ==
LOC: MW.ED 05:33
DX: J44.0 Chronic obstructive pulmonary disease with (acute) lower respiratory infection (principal); J18.9 Pneumonia, unspecified organism; J44.1 Chronic obstructive pulmonary disease with (acute) exacerbation; I11.9 Hypertensive heart disease without heart failure; I50.9 Heart failure, unspecified; E66.9 Obesity, unspecified; Z79.01 Long term (current) use of anticoagulants; Z79.899 Other long term (current) drug therapy; Z88.8 Allergy status to other drugs, medicaments and biological substances; Z88.5 Allergy status to narcotic agent; Z88.1 Allergy status to other antibiotic agents; Z90.49 Acquired absence of other specified parts of digestive tract; Z68.41 Body mass index [BMI] 40.0-44.9, adult
CPT/HCPCS: 36415; 71045; 80053; 84484; 85025; 93005; 99285; A9270; J7620

== ENCOUNTER 2025-03-23 04:25 | Emergency (ER) | payer OTHER ==
[2025-03-23] MEDS: methylPREDNISolone Sodium Succinate 125 MG/2 ML SDV IVPUSH ONE (05:00)
[2025-03-23] MEDS: Sodium Chloride 0.9% 2.5 ML Syringe FLUSH PRN (05:03)
[2025-03-23] MEDS: Sodium Chloride 0.9% 10 ML Syringe FLUSH PRN (05:03)
[2025-03-23 05:04] LABS: BASOPHILS ABSOLUTE AUTO 0.04 K/uL (0.00-0.20); BASOPHILS PERCENT AUTO 0.3 % (0.0-1.0); EOSINOPHILS ABSOLUTE AUTO 0.03 K/uL (0.00-0.45); EOSINOPHILS PERCENT AUTO 0.3 % (0.0-6.0); IMMATURE GRAN ABSOLUTE AUTO 0.03 K/uL (0.00-0.05); IMMATURE GRAN PERCENT AUTO 0.3 % (0.0-0.4); LYMPHOCYTES ABSOLUTE AUTO 1.36 K/uL (1.00-4.80); LYMPHOCYTES PERCENT AUTO 11.8 % (24.0-44.0); MEAN PLATELET VOLUME 10.4 fL (9.4-12.3); MONOCYTES ABSOLUTE AUTO 0.83 K/uL (0.00-0.80); MONOCYTES PERCENT AUTO 7.2 % (0.0-8.0); NEUTROPHILS ABSOLUTE AUTO 9.22 K/uL (1.80-7.70); NEUTROPHILS PERCENT AUTO 80.1 % (41.0-71.0); NRBC ABSOLUTE 0.00 K/uL (0.00-0.02); NRBC PERCENT 0.0 /100WBC (0.0-0.2); PLATELET COUNT,PLT 289 K/uL (150-400); RED BLOOD CELL COUNT 4.78 M/uL (4.10-5.30); WHITE BLOOD CELL COUNT,WBC 11.51 K/uL (3.9-11.3)
[2025-03-23 05:07] LABS: BASE EXCESS VENOUS 16.5 (-2.0-3.0); BICARBONATE,VENOUS 47.0 mEq/L (22-29); PCO2 VENOUS 83.0 mmHG (41-51); PH,VENOUS 7.36 (7.32-7.43); PO2 VENOUS 30.0 mmHG (35-45)
[2025-03-23 05:35] LABS: A/G RATIO 1.0 (0.9-1.6); ALANINE AMINOTRANSFERASE,ALT 41 IU/L (14-63); ASPARTATE AMNIOTRANSFERASE,AST 20 IU/L (15-37); BILIRUBIN TOTAL 0.3 mg/dL (0.2-1.0); BLOOD UREA NITROGEN,BUN 11 mg/dL (7.0-18.0); CARBON DIOXIDE,CO2 43.2 mmol/L (21.0-32.0); CHLORIDE,CL 100 mmol/L (98-107); CREATININE 0.6 mg/dL (0.6-1.0); GLUCOSE RANDOM 130 mg/dL (74-106); POTASSIUM,K 4.5 mmol/L (3.5-5.1); PRO B-TYPE NATRIUR PEPT,BNPPRO 181 pg/mL (0-125); PROTEIN TOTAL,TP 7.0 g/dL (6.4-8.2); SODIUM,NA 145 mmol/L (136-145)
[2025-03-23 05:52] LABS: ESTIMATED GFR 105 mL/min (>60)
[2025-03-23 06:48] VITALS: BP 100/52; PULSE 88
== END 2025-03-23 06:40 | disposition home or self-care (01) ==
LOC: MW.ED 04:25
DX: J44.1 Chronic obstructive pulmonary disease with (acute) exacerbation (principal); R06.89 Other abnormalities of breathing; I11.0 Hypertensive heart disease with heart failure; I50.9 Heart failure, unspecified; E78.00 Pure hypercholesterolemia, unspecified; Z90.79 Acquired absence of other genital organ(s); Z88.1 Allergy status to other antibiotic agents; Z88.5 Allergy status to narcotic agent; Z88.8 Allergy status to other drugs, medicaments and biological substances; Z79.899 Other long term (current) drug therapy; Z99.81 Dependence on supplemental oxygen; Z79.01 Long term (current) use of anticoagulants
CPT/HCPCS: 36415; 71045; 80053; 82803; 83735; 83880; 84484; 85025; 93005; 96374; 99284; J2919; J7620; 93010; 99283; A9270-GY

== ENCOUNTER 2025-04-01 19:33 | Inpatient (IN) | payer OTHER ==
[2025-04-01] MEDS ORDERED: Sodium Chloride 0.9% 2.5 ML Syringe FLUSH PRN (19:34)
[2025-04-01] MEDS ORDERED: Sodium Chloride 0.9% 10 ML Syringe FLUSH PRN (19:34)
[2025-04-01 19:52] VITALS: PULSE 92
[2025-04-01 19:55] LABS: BASOPHILS ABSOLUTE AUTO 0.02 K/uL (0.00-0.20); BASOPHILS PERCENT AUTO 0.1 % (0.0-1.0); EOSINOPHILS ABSOLUTE AUTO 0.03 K/uL (0.00-0.45); EOSINOPHILS PERCENT AUTO 0.2 % (0.0-6.0); IMMATURE GRAN ABSOLUTE AUTO 0.11 K/uL (0.00-0.05); IMMATURE GRAN PERCENT AUTO 0.8 % (0.0-0.4); LYMPHOCYTES ABSOLUTE AUTO 1.52 K/uL (1.00-4.80); LYMPHOCYTES PERCENT AUTO 10.7 % (24.0-44.0); MEAN PLATELET VOLUME 10.7 fL (9.4-12.3); MONOCYTES ABSOLUTE AUTO 0.87 K/uL (0.00-0.80); MONOCYTES PERCENT AUTO 6.1 % (0.0-8.0); NEUTROPHILS ABSOLUTE AUTO 11.63 K/uL (1.80-7.70); NEUTROPHILS PERCENT AUTO 82.1 % (41.0-71.0); NRBC ABSOLUTE 0.00 K/uL (0.00-0.02); NRBC PERCENT 0.0 /100WBC (0.0-0.2); PLATELET COUNT,PLT 248 K/uL (150-400); RED BLOOD CELL COUNT 4.59 M/uL (4.10-5.30); WHITE BLOOD CELL COUNT,WBC 14.18 K/uL (3.9-11.3)
[2025-04-01] MEDS: methylPREDNISolone Sodium Succinate 125 MG/2 ML SDV IVPUSH ONE (19:59)
[2025-04-01 20:06] LABS: INR 0.96 (0.86-1.11); PTT,PARTIAL THROMBOPLSTIN TIME 23.8 SEC (23.9-30.7)
[2025-04-01] MEDS: cefTRIAXone 2 GM in Water For Injection, Sterile 20 ML IVPUSH ONE (20:29)
[2025-04-01] MEDS: Ondansetron 4 MG/2 ML SDV IVPUSH ONE (20:29)
[2025-04-01 20:45] LABS: A/G RATIO 1.0 (0.9-1.6); ALANINE AMINOTRANSFERASE,ALT 21.0 IU/L (14-63); ASPARTATE AMNIOTRANSFERASE,AST 14.0 IU/L (15-37); BILIRUBIN TOTAL 0.3 mg/dL (0.2-1.0); BLOOD UREA NITROGEN,BUN 8.0 mg/dL (7.0-18.0); CARBON DIOXIDE,CO2 43.1 mmol/L (21.0-32.0); CHLORIDE,CL 95.0 mmol/L (98-107); CREATININE 0.4 mg/dL (0.6-1.0); EST CRCL DRUG DOSING (CG) 145.26 mL/min; GLUCOSE RANDOM 124.0 mg/dL (74-106); POTASSIUM,K 4.7 mmol/L (3.5-5.1); PRO B-TYPE NATRIUR PEPT,BNPPRO 242.0 pg/mL (0-125); PROTEIN TOTAL,TP 6.4 g/dL (6.4-8.2); SODIUM,NA 140.0 mmol/L (136-145)
[2025-04-01 21:07] LABS: ESTIMATED GFR 115.0 mL/min (>60)
[2025-04-01 21:09] LABS: BICARBONATE,VENOUS 47.0 mEq/L (23-28); PCO2 VENOUS 95.0 mmHG (41-51); PH,VENOUS 7.3 (7.31-7.41); PO2 VENOUS 32.0 mmHG (35-45)
[2025-04-01 21:10] LABS: BASE EXCESS VENOUS 21.0 (-2.0-3.0)
[2025-04-01 21:28] LABS: APPEARANCE,URINE CLEAR; GLUCOSE,URINE NEGATIVE (NEGATIVE); OCCULT BLOOD,URINE NEGATIVE (NEGATIVE)
[2025-04-01] MEDS: Magnesium Sulfate 2 GM/50 mL 2 GM in Premix Bag 1 BAG IV ONE (22:28)
[2025-04-01 23:45] LABS: PCO2 VENOUS 109 mmHG (41-51); PH,VENOUS 7.25 (7.31-7.41)
[2025-04-01 23:46] LABS: BASE EXCESS VENOUS 21.0 (-2.0-3.0); BICARBONATE,VENOUS 48 mEq/L (23-28); PO2 VENOUS 78 mmHG (35-45)
[2025-04-01 23:47] LABS: PCO2 VENOUS 92 mmHG (41-51); PH,VENOUS 7.32 (7.31-7.41)
[2025-04-01 23:48] LABS: BASE EXCESS VENOUS 21.0 (-2.0-3.0); BICARBONATE,VENOUS 47 mEq/L (23-28); PO2 VENOUS 19 mmHG (35-45)
[2025-04-02] MEDS ORDERED: Sodium Chloride 0.9% 10 ML Syringe FLUSH PRN (00:09)
[2025-04-02] MEDS ORDERED: Sodium Chloride 0.9% 2.5 ML Syringe FLUSH PRN (00:09)
[2025-04-02 04:11] LABS: BASOPHILS ABSOLUTE AUTO 0.01 K/uL (0.00-0.20); BASOPHILS PERCENT AUTO 0.1 % (0.0-1.0); EOSINOPHILS ABSOLUTE AUTO 0.00 K/uL (0.00-0.45); EOSINOPHILS PERCENT AUTO 0.0 % (0.0-6.0); IMMATURE GRAN ABSOLUTE AUTO 0.06 K/uL (0.00-0.05); IMMATURE GRAN PERCENT AUTO 0.6 % (0.0-0.4); LYMPHOCYTES ABSOLUTE AUTO 0.39 K/uL (1.00-4.80); LYMPHOCYTES PERCENT AUTO 4.2 % (24.0-44.0); MEAN PLATELET VOLUME 10.6 fL (9.4-12.3); MONOCYTES ABSOLUTE AUTO 0.04 K/uL (0.00-0.80); MONOCYTES PERCENT AUTO 0.4 % (0.0-8.0); NEUTROPHILS ABSOLUTE AUTO 8.79 K/uL (1.80-7.70); NEUTROPHILS PERCENT AUTO 94.7 % (41.0-71.0); NRBC ABSOLUTE 0.00 K/uL (0.00-0.02); NRBC PERCENT 0.0 /100WBC (0.0-0.2); PLATELET COUNT,PLT 224 K/uL (150-400); RED BLOOD CELL COUNT 4.61 M/uL (4.10-5.30); WHITE BLOOD CELL COUNT,WBC 9.29 K/uL (3.9-11.3)
[2025-04-02 04:27] LABS: BASE EXCESS VENOUS 19.0 (-2.0-3.0); BICARBONATE,VENOUS 46.0 mEq/L (23-28); PCO2 VENOUS 105.0 mmHG (41-51); PH,VENOUS 7.25 (7.31-7.41); PO2 VENOUS 83.0 mmHG (35-45)
[2025-04-02 04:49] LABS: BLOOD UREA NITROGEN,BUN 8.0 mg/dL (7.0-18.0); CARBON DIOXIDE,CO2 42.2 mmol/L (21.0-32.0); CHLORIDE,CL 96.0 mmol/L (98-107); CREATININE 0.5 mg/dL (0.6-1.0); EST CRCL DRUG DOSING (CG) 116.21 mL/min; ESTIMATED GFR 109.0 mL/min (>60); GLUCOSE RANDOM 166.0 mg/dL (74-106); PHOSPHORUS 3.3 mg/dL (2.6-4.7); POTASSIUM,K 5.3 mmol/L (3.5-5.1); SODIUM,NA 140.0 mmol/L (136-145)
[2025-04-02 09:28] LABS: BASE EXCESS VENOUS 17.0 (-2.0-3.0); BICARBONATE,VENOUS 49 mEq/L (22-29); PCO2 VENOUS 92 mmHG (41-51); PH,VENOUS 7.33 (7.32-7.43); PO2 VENOUS 141 mmHG (35-45)
[2025-04-02] MEDS ORDERED: Albuterol 0.083% 2.5 MG/3 ML Neb Soln NEB PRN (09:50)
[2025-04-02] MEDS ORDERED: Ondansetron 4 MG/2 ML SDV IVPUSH PRN (09:52)
[2025-04-02] MEDS ORDERED: Sennosides/Docusate Sodium 50-8.6 MG Tab PO PRN (09:52)
[2025-04-02] MEDS: methylPREDNISolone Sodium Succinate 40 MG/1 ML SDV IVPUSH SCH (10:09)
[2025-04-02] MEDS: methylPREDNISolone Sodium Succinate 125 MG/2 ML SDV IVPUSH SCH (10:46)
[2025-04-02] MEDS: Tiotropium Bromide 4 GM Inhalation Spray (2.5mcg/1 dose; 10 doses) INH SCH (11:14)
[2025-04-02 14:26] LABS: BASE EXCESS VENOUS 20.0 (-2.0-3.0); BICARBONATE,VENOUS 52 mEq/L (22-29); PCO2 VENOUS 90 mmHG (41-51); PH,VENOUS 7.37 (7.32-7.43); PO2 VENOUS 38 mmHG (35-45)
[2025-04-02] MEDS: Levofloxacin/Dextrose 5%-Water 750 MG in Premix Bag 1 BAG IV SCH (19:32)
[2025-04-02] MEDS: Formoterol/Mometasone 200-5 MCG 8.8 GM Inhaler INH SCH (20:04)
[2025-04-03 05:52] LABS: BASOPHILS ABSOLUTE AUTO 0.01 K/uL (0.00-0.20); BASOPHILS PERCENT AUTO 0.1 % (0.0-1.0); EOSINOPHILS ABSOLUTE AUTO 0.00 K/uL (0.00-0.45); EOSINOPHILS PERCENT AUTO 0.0 % (0.0-6.0); IMMATURE GRAN ABSOLUTE AUTO 0.08 K/uL (0.00-0.05); IMMATURE GRAN PERCENT AUTO 0.6 % (0.0-0.4); LYMPHOCYTES ABSOLUTE AUTO 0.73 K/uL (1.00-4.80); LYMPHOCYTES PERCENT AUTO 5.2 % (24.0-44.0); MEAN PLATELET VOLUME 10.8 fL (9.4-12.3); MONOCYTES ABSOLUTE AUTO 0.43 K/uL (0.00-0.80); MONOCYTES PERCENT AUTO 3.1 % (0.0-8.0); NEUTROPHILS ABSOLUTE AUTO 12.82 K/uL (1.80-7.70); NEUTROPHILS PERCENT AUTO 91.0 % (41.0-71.0); NRBC ABSOLUTE 0.00 K/uL (0.00-0.02); NRBC PERCENT 0.0 /100WBC (0.0-0.2); PLATELET COUNT,PLT 245 K/uL (150-400); RED BLOOD CELL COUNT 4.51 M/uL (4.10-5.30); WHITE BLOOD CELL COUNT,WBC 14.07 K/uL (3.9-11.3)
[2025-04-03 06:11] LABS: BLOOD UREA NITROGEN,BUN 23.0 mg/dL (7.0-18.0); CARBON DIOXIDE,CO2 40.2 mmol/L (21.0-32.0); CHLORIDE,CL 92.0 mmol/L (98-107); CREATININE 0.6 mg/dL (0.6-1.0); EST CRCL DRUG DOSING (CG) 96.84 mL/min; GLUCOSE RANDOM 142.0 mg/dL (74-106); POTASSIUM,K 4.5 mmol/L (3.5-5.1); SODIUM,NA 133.0 mmol/L (136-145)
[2025-04-03 06:23] LABS: ESTIMATED GFR 105.0 mL/min (>60)
[2025-04-04 05:56] LABS: BASOPHILS ABSOLUTE AUTO 0.02 K/uL (0.00-0.20); BASOPHILS PERCENT AUTO 0.1 % (0.0-1.0); EOSINOPHILS ABSOLUTE AUTO 0.02 K/uL (0.00-0.45); EOSINOPHILS PERCENT AUTO 0.1 % (0.0-6.0); IMMATURE GRAN ABSOLUTE AUTO 0.11 K/uL (0.00-0.05); IMMATURE GRAN PERCENT AUTO 0.7 % (0.0-0.4); LYMPHOCYTES ABSOLUTE AUTO 2.35 K/uL (1.00-4.80); LYMPHOCYTES PERCENT AUTO 15.1 % (24.0-44.0); MEAN PLATELET VOLUME 11.1 fL (9.4-12.3); MONOCYTES ABSOLUTE AUTO 1.22 K/uL (0.00-0.80); MONOCYTES PERCENT AUTO 7.9 % (0.0-8.0); NEUTROPHILS ABSOLUTE AUTO 11.82 K/uL (1.80-7.70); NEUTROPHILS PERCENT AUTO 76.1 % (41.0-71.0); NRBC ABSOLUTE 0.00 K/uL (0.00-0.02); NRBC PERCENT 0.0 /100WBC (0.0-0.2); PLATELET COUNT,PLT 227 K/uL (150-400); RED BLOOD CELL COUNT 4.40 M/uL (4.10-5.30); WHITE BLOOD CELL COUNT,WBC 15.54 K/uL (3.9-11.3)
[2025-04-04 06:21] LABS: BLOOD UREA NITROGEN,BUN 29.0 mg/dL (7.0-18.0); CARBON DIOXIDE,CO2 37.4 mmol/L (21.0-32.0); CHLORIDE,CL 99.0 mmol/L (98-107); CREATININE 0.6 mg/dL (0.6-1.0); EST CRCL DRUG DOSING (CG) 96.84 mL/min; GLUCOSE RANDOM 103.0 mg/dL (74-106); POTASSIUM,K 4.3 mmol/L (3.5-5.1); SODIUM,NA 142.0 mmol/L (136-145)
[2025-04-04 06:23] LABS: ESTIMATED GFR 105.0 mL/min (>60)
[2025-04-04 10:22] VITALS: BP 94/70
== END 2025-04-04 10:25 | disposition home or self-care (01) | DRG 189 ==
LOC: MW.ED 19:33 → MW.ICU 21:32
PROVIDERS: ADMIT Internal Medicine; ATTEND Internal Medicine
PROC: 5A09357 Assistance with Respiratory Ventilation, Less than 24 Consecutive Hours, Continuous Positive Airway Pressure (ICD-10-PCS; principal; 2025-04-01)
PROC: 3E03329 Introduction of Other Anti-infective into Peripheral Vein, Percutaneous Approach (ICD-10-PCS; 2025-04-01)
DX: J96.21 Acute and chronic respiratory failure with hypoxia (principal); J44.1 Chronic obstructive pulmonary disease with (acute) exacerbation; Z68.41 Body mass index [BMI] 40.0-44.9, adult; J96.22 Acute and chronic respiratory failure with hypercapnia; E66.01 Morbid (severe) obesity due to excess calories; I50.9 Heart failure, unspecified; E78.00 Pure hypercholesterolemia, unspecified; M54.9 Dorsalgia, unspecified; I11.0 Hypertensive heart disease with heart failure; F17.200 Nicotine dependence, unspecified, uncomplicated; G89.29 Other chronic pain; Z88.8 Allergy status to other drugs, medicaments and biological substances; Z88.1 Allergy status to other antibiotic agents; Z79.899 Other long term (current) drug therapy; Z99.81 Dependence on supplemental oxygen; Z79.01 Long term (current) use of anticoagulants; Z90.49 Acquired absence of other specified parts of digestive tract; Z98.51 Tubal ligation status; Z79.52 Long term (current) use of systemic steroids
CPT/HCPCS: 36415; 71045; 71045-26; 80048; 80053; 81003; 82803; 83605; 83735; 83880; 84100; 84145; 84484; 85025; 85610; 85730; 87040; 87428-QW; 93005; 93010; 94640; 94660; 99285; A4216; A9270-GY; J0696; J1271; J1956; J2405; J2919; J3475

== ENCOUNTER 2025-04-15 01:48 | Inpatient (IN) | payer OTHER ==
[2025-04-15] MEDS ORDERED: Sodium Chloride 0.9% 10 ML Syringe FLUSH PRN ×2 (02:39→14:54)
[2025-04-15] MEDS ORDERED: Sodium Chloride 0.9% 2.5 ML Syringe FLUSH PRN ×2 (02:39→14:54)
[2025-04-15] MEDS: methylPREDNISolone Sodium Succinate 125 MG/2 ML SDV IVPUSH ONE (02:51)
[2025-04-15 02:57] LABS: BASOPHILS ABSOLUTE AUTO 0.01 K/uL (0.00-0.20); BASOPHILS PERCENT AUTO 0.1 % (0.0-1.0); EOSINOPHILS ABSOLUTE AUTO 0.01 K/uL (0.00-0.45); EOSINOPHILS PERCENT AUTO 0.1 % (0.0-6.0); IMMATURE GRAN ABSOLUTE AUTO 0.08 K/uL (0.00-0.05); IMMATURE GRAN PERCENT AUTO 0.7 % (0.0-0.4); LYMPHOCYTES ABSOLUTE AUTO 1.09 K/uL (1.00-4.80); LYMPHOCYTES PERCENT AUTO 9.0 % (24.0-44.0); MEAN PLATELET VOLUME 9.8 fL (9.4-12.3); MONOCYTES ABSOLUTE AUTO 0.74 K/uL (0.00-0.80); MONOCYTES PERCENT AUTO 6.1 % (0.0-8.0); NEUTROPHILS ABSOLUTE AUTO 10.13 K/uL (1.80-7.70); NEUTROPHILS PERCENT AUTO 84.0 % (41.0-71.0); NRBC ABSOLUTE 0.00 K/uL (0.00-0.02); NRBC PERCENT 0.0 /100WBC (0.0-0.2); PLATELET COUNT,PLT 254 K/uL (150-400); RED BLOOD CELL COUNT 4.53 M/uL (4.10-5.30); WHITE BLOOD CELL COUNT,WBC 12.06 K/uL (3.9-11.3)
[2025-04-15 03:01] LABS: BASE EXCESS VENOUS 16.2 (-2.0-3.0); BICARBONATE,VENOUS 47.0 mEq/L (22-29); PCO2 VENOUS 92.0 mmHG (41-51); PH,VENOUS 7.32 (7.32-7.43); PO2 VENOUS 15.0 mmHG (35-45)
[2025-04-15 03:29] LABS: A/G RATIO 1.0 (0.9-1.6); ALANINE AMINOTRANSFERASE,ALT 28 IU/L (14-63); ASPARTATE AMNIOTRANSFERASE,AST 19 IU/L (15-37); BILIRUBIN TOTAL 0.3 mg/dL (0.2-1.0); BLOOD UREA NITROGEN,BUN 12 mg/dL (7.0-18.0); CARBON DIOXIDE,CO2 43.7 mmol/L (21.0-32.0); CHLORIDE,CL 98 mmol/L (98-107); CREATININE 0.6 mg/dL (0.6-1.0); GLUCOSE RANDOM 143 mg/dL (74-106); POTASSIUM,K 4.5 mmol/L (3.5-5.1); PRO B-TYPE NATRIUR PEPT,BNPPRO 211 pg/mL (0-125); PROTEIN TOTAL,TP 6.5 g/dL (6.4-8.2); SODIUM,NA 141 mmol/L (136-145)
[2025-04-15 03:30] LABS: ESTIMATED GFR 105 mL/min (>60)
[2025-04-15] MEDS: Magnesium Sulfate 2 GM/50 mL 2 GM in Premix Bag 1 BAG IV ONE (04:37)
[2025-04-15 08:11] LABS: LACTIC ACID < 0.3 mmol/L (0.4-2.0)
[2025-04-15 08:32] LABS: INR 0.96 (0.86-1.11); PTT,PARTIAL THROMBOPLSTIN TIME 24.0 SEC (23.9-30.7)
[2025-04-15 08:41] LABS: APPEARANCE,URINE CLEAR; GLUCOSE,URINE NEGATIVE (NEGATIVE); OCCULT BLOOD,URINE TRACE-INTACT (NEGATIVE)
[2025-04-15 08:47] LABS: EPITHELIAL CELLS,URINE FEW (NONE-FEW)
[2025-04-15] MEDS: Iopamidol 755 Mg/ML 100 ML Bottle IVPUSH ONE (09:40)
[2025-04-15 11:03] LABS: BASE EXCESS ARTERIAL 18.8 (-2.0-3.0); BICARBONATE,ARTERIAL 48 mEq/L (21-28); PCO2 ARTERIAL 80 mmHG (35-45); PO2 ARTERIAL 69 mmHG (83-108)
[2025-04-15] MEDS: Levofloxacin/Dextrose 5%-Water 750 MG in Premix Bag 1 BAG IV ONE (11:25)
[2025-04-15] MEDS ORDERED: Ondansetron 4 MG/2 ML SDV IVPUSH PRN (14:54)
[2025-04-15 15:20] LABS: BASE EXCESS VENOUS 16.9 (-2.0-3.0); BICARBONATE,VENOUS 44.0 mEq/L (22-29); PCO2 VENOUS 62.0 mmHG (41-51); PH,VENOUS 7.46 (7.32-7.43); PO2 VENOUS 53.0 mmHG (35-45)
[2025-04-15] MEDS: Furosemide 40 MG/4 ML VIAL IVPUSH ONE (18:04)
[2025-04-15] MEDS: GLYCOPYR INH SCH (20:49)
[2025-04-15] MEDS: BUDESONIDE INH SCH (20:49)
[2025-04-15] MEDS: FORMOTEROL INH SCH (20:49)
[2025-04-16 05:35] LABS: BASOPHILS ABSOLUTE AUTO 0.02 K/uL (0.00-0.20); BASOPHILS PERCENT AUTO 0.2 % (0.0-1.0); EOSINOPHILS ABSOLUTE AUTO 0.07 K/uL (0.00-0.45); EOSINOPHILS PERCENT AUTO 0.6 % (0.0-6.0); IMMATURE GRAN ABSOLUTE AUTO 0.07 K/uL (0.00-0.05); IMMATURE GRAN PERCENT AUTO 0.6 % (0.0-0.4); LYMPHOCYTES ABSOLUTE AUTO 1.75 K/uL (1.00-4.80); LYMPHOCYTES PERCENT AUTO 15.7 % (24.0-44.0); MEAN PLATELET VOLUME 10.4 fL (9.4-12.3); MONOCYTES ABSOLUTE AUTO 0.85 K/uL (0.00-0.80); MONOCYTES PERCENT AUTO 7.6 % (0.0-8.0); NEUTROPHILS ABSOLUTE AUTO 8.42 K/uL (1.80-7.70); NEUTROPHILS PERCENT AUTO 75.3 % (41.0-71.0); NRBC ABSOLUTE 0.00 K/uL (0.00-0.02); NRBC PERCENT 0.0 /100WBC (0.0-0.2); PLATELET COUNT,PLT 217 K/uL (150-400); RED BLOOD CELL COUNT 4.09 M/uL (4.10-5.30); WHITE BLOOD CELL COUNT,WBC 11.18 K/uL (3.9-11.3)
[2025-04-16 05:53] VITALS: PULSE 70
[2025-04-16 06:18] LABS: A/G RATIO 1.0 (0.9-1.6); ALANINE AMINOTRANSFERASE,ALT 19.0 IU/L (14-63); ASPARTATE AMNIOTRANSFERASE,AST 10.0 IU/L (15-37); BILIRUBIN TOTAL 0.2 mg/dL (0.2-1.0); BLOOD UREA NITROGEN,BUN 18.0 mg/dL (7.0-18.0); CHLORIDE,CL 97.0 mmol/L (98-107); CREATININE 0.6 mg/dL (0.6-1.0); EST CRCL DRUG DOSING (CG) 96.84 mL/min; GLUCOSE RANDOM 106.0 mg/dL (74-106); POTASSIUM,K 4.1 mmol/L (3.5-5.1); PROTEIN TOTAL,TP 5.7 g/dL (6.4-8.2); SODIUM,NA 141.0 mmol/L (136-145)
[2025-04-16 06:47] LABS: CARBON DIOXIDE,CO2 47.7 mmol/L (21.0-32.0); ESTIMATED GFR 105.0 mL/min (>60)
[2025-04-16] MEDS: Levofloxacin/Dextrose 5%-Water 750 MG in Premix Bag 1 BAG IV SCH (08:50)
[2025-04-16 12:33] VITALS: BP 110/86
== END 2025-04-16 12:33 | disposition home or self-care (01) | DRG 193 ==
LOC: MW.ED 01:48 → MW.ICU 15:13
PROVIDERS: ADMIT Family Medicine; ATTEND Family Medicine
PROC: 5A09357 Assistance with Respiratory Ventilation, Less than 24 Consecutive Hours, Continuous Positive Airway Pressure (ICD-10-PCS; principal; 2025-04-15)
PROC: 4A033R1 Measurement of Arterial Saturation, Peripheral, Percutaneous Approach (ICD-10-PCS; 2025-04-15)
DX: J18.9 Pneumonia, unspecified organism (principal); J96.21 Acute and chronic respiratory failure with hypoxia; J96.22 Acute and chronic respiratory failure with hypercapnia; J44.0 Chronic obstructive pulmonary disease with (acute) lower respiratory infection; Z68.41 Body mass index [BMI] 40.0-44.9, adult; I50.9 Heart failure, unspecified; I11.0 Hypertensive heart disease with heart failure; M54.9 Dorsalgia, unspecified; E66.01 Morbid (severe) obesity due to excess calories; G89.29 Other chronic pain; Z90.49 Acquired absence of other specified parts of digestive tract; Z98.890 Other specified postprocedural states; Z98.51 Tubal ligation status; Z99.81 Dependence on supplemental oxygen; Z88.8 Allergy status to other drugs, medicaments and biological substances; Z79.899 Other long term (current) drug therapy; Z79.01 Long term (current) use of anticoagulants; Z87.891 Personal history of nicotine dependence; Z79.52 Long term (current) use of systemic steroids
CPT/HCPCS: 36410; 36415; 36600; 71045; 71045-26; 71275; 71275-26; 80053; 81001; 82803; 83605; 83735; 83880; 84484; 85025; 85610; 85730; 87040; 93005; 93010; 94640; 94660; 96365; 96366; 96375; 99285; 99285-25; A9270-GY; J1271; J1938; J1956; J2919; J3475; Q9967

== ENCOUNTER 2025-04-28 21:30 | Emergency (ER) | payer OTHER ==
[2025-04-28] MEDS ORDERED: Sodium Chloride 0.9% 2.5 ML Syringe FLUSH PRN (21:48)
[2025-04-28] MEDS ORDERED: Sodium Chloride 0.9% 10 ML Syringe FLUSH PRN (21:48)
[2025-04-28 22:08] LABS: BASOPHILS ABSOLUTE AUTO 0.04 K/uL (0.00-0.20); BASOPHILS PERCENT AUTO 0.3 % (0.0-1.0); EOSINOPHILS ABSOLUTE AUTO 0.05 K/uL (0.00-0.45); EOSINOPHILS PERCENT AUTO 0.4 % (0.0-6.0); IMMATURE GRAN ABSOLUTE AUTO 0.10 K/uL (0.00-0.05); IMMATURE GRAN PERCENT AUTO 0.8 % (0.0-0.4); LYMPHOCYTES ABSOLUTE AUTO 1.66 K/uL (1.00-4.80); LYMPHOCYTES PERCENT AUTO 13.5 % (24.0-44.0); MEAN PLATELET VOLUME 10.1 fL (9.4-12.3); MONOCYTES ABSOLUTE AUTO 0.81 K/uL (0.00-0.80); MONOCYTES PERCENT AUTO 6.6 % (0.0-8.0); NEUTROPHILS ABSOLUTE AUTO 9.63 K/uL (1.80-7.70); NEUTROPHILS PERCENT AUTO 78.4 % (41.0-71.0); NRBC ABSOLUTE 0.00 K/uL (0.00-0.02); NRBC PERCENT 0.0 /100WBC (0.0-0.2); PLATELET COUNT,PLT 308 K/uL (150-400); RED BLOOD CELL COUNT 4.54 M/uL (4.10-5.30); WHITE BLOOD CELL COUNT,WBC 12.29 K/uL (3.9-11.3)
[2025-04-28] MEDS: methylPREDNISolone Sodium Succinate 125 MG/2 ML SDV IVPUSH ONE (22:13)
[2025-04-28 22:16] LABS: BICARBONATE,VENOUS 46.0 mEq/L (22-29); PCO2 VENOUS 88.0 mmHG (41-51); PH,VENOUS 7.33 (7.32-7.43); PO2 VENOUS 52.0 mmHG (35-45)
[2025-04-28 22:17] LABS: BASE EXCESS VENOUS 15.7 (-2.0-3.0)
[2025-04-28 22:27] LABS: A/G RATIO 1.0 (0.9-1.6); ALANINE AMINOTRANSFERASE,ALT 22.0 IU/L (14-63); ASPARTATE AMNIOTRANSFERASE,AST 13.0 IU/L (15-37); BILIRUBIN TOTAL 0.3 mg/dL (0.2-1.0); BLOOD UREA NITROGEN,BUN 9.0 mg/dL (7.0-18.0); CARBON DIOXIDE,CO2 43.0 mmol/L (21.0-32.0); CHLORIDE,CL 96.0 mmol/L (98-107); CREATININE 0.6 mg/dL (0.6-1.0); EST CRCL DRUG DOSING (CG) 96.84 mL/min; GLUCOSE RANDOM 125.0 mg/dL (74-106); POTASSIUM,K 4.5 mmol/L (3.5-5.1); PROTEIN TOTAL,TP 6.7 g/dL (6.4-8.2); SODIUM,NA 139.0 mmol/L (136-145)
[2025-04-28 22:28] LABS: ESTIMATED GFR 105.0 mL/min (>60)
[2025-04-28 23:35] VITALS: BP 152/66; PULSE 90
== END 2025-04-28 23:35 | disposition home or self-care (01) ==
LOC: MW.ED 21:30
DX: J96.21 Acute and chronic respiratory failure with hypoxia (principal); J96.22 Acute and chronic respiratory failure with hypercapnia; I11.0 Hypertensive heart disease with heart failure; I50.9 Heart failure, unspecified; J44.9 Chronic obstructive pulmonary disease, unspecified; E66.9 Obesity, unspecified; Z68.41 Body mass index [BMI] 40.0-44.9, adult; Z90.49 Acquired absence of other specified parts of digestive tract; Z88.5 Allergy status to narcotic agent; Z88.8 Allergy status to other drugs, medicaments and biological substances; Z79.01 Long term (current) use of anticoagulants; Z79.899 Other long term (current) drug therapy
CPT/HCPCS: 36415; 71045; 80053; 82803; 85025; 96374; 99285; A9270; J2919; J7620

== ENCOUNTER 2025-05-19 13:39 | Emergency (ER) | payer OTHER ==
[2025-05-19] MEDS ORDERED: Sodium Chloride 0.9% 2.5 ML Syringe FLUSH PRN (13:54)
[2025-05-19] MEDS ORDERED: Sodium Chloride 0.9% 10 ML Syringe FLUSH PRN (13:54)
[2025-05-19 14:08] LABS: BASOPHILS ABSOLUTE AUTO 0.05 K/uL (0.00-0.20); BASOPHILS PERCENT AUTO 0.5 % (0.0-1.0); EOSINOPHILS ABSOLUTE AUTO 0.04 K/uL (0.00-0.45); EOSINOPHILS PERCENT AUTO 0.4 % (0.0-6.0); IMMATURE GRAN ABSOLUTE AUTO 0.12 K/uL (0.00-0.05); IMMATURE GRAN PERCENT AUTO 1.1 % (0.0-0.4); LYMPHOCYTES ABSOLUTE AUTO 0.94 K/uL (1.00-4.80); LYMPHOCYTES PERCENT AUTO 8.8 % (24.0-44.0); MEAN PLATELET VOLUME 10.0 fL (9.4-12.3); MONOCYTES ABSOLUTE AUTO 0.78 K/uL (0.00-0.80); MONOCYTES PERCENT AUTO 7.3 % (0.0-8.0); NEUTROPHILS ABSOLUTE AUTO 8.75 K/uL (1.80-7.70); NEUTROPHILS PERCENT AUTO 81.9 % (41.0-71.0); NRBC ABSOLUTE 0.03 K/uL (0.00-0.02); NRBC PERCENT 0.3 /100WBC (0.0-0.2); PLATELET COUNT,PLT 263 K/uL (150-400); RED BLOOD CELL COUNT 4.64 M/uL (4.10-5.30); WHITE BLOOD CELL COUNT,WBC 10.68 K/uL (3.9-11.3)
[2025-05-19 14:17] LABS: INR 0.95 (0.86-1.11); PTT,PARTIAL THROMBOPLSTIN TIME 23.9 SEC (23.9-30.7)
[2025-05-19 14:33] LABS: A/G RATIO 0.9 (0.9-1.6); ALANINE AMINOTRANSFERASE,ALT 28.0 IU/L (14-63); ASPARTATE AMNIOTRANSFERASE,AST 17.0 IU/L (15-37); BILIRUBIN TOTAL 0.2 mg/dL (0.2-1.0); BLOOD UREA NITROGEN,BUN 11.0 mg/dL (7.0-18.0); CARBON DIOXIDE,CO2 43.3 mmol/L (21.0-32.0); CHLORIDE,CL 99.0 mmol/L (98-107); CREATININE 0.6 mg/dL (0.6-1.0); EST CRCL DRUG DOSING (CG) 96.84 mL/min; ESTIMATED GFR 105.0 mL/min (>60); GLUCOSE RANDOM 159.0 mg/dL (74-106); POTASSIUM,K 5.0 mmol/L (3.5-5.1); PROTEIN TOTAL,TP 7.1 g/dL (6.4-8.2); SODIUM,NA 142.0 mmol/L (136-145)
[2025-05-19] MEDS: methylPREDNISolone Sodium Succinate 125 MG/2 ML SDV IVPUSH ONE (14:33)
[2025-05-19 14:58] LABS: LACTIC ACID 0.8 mmol/L (0.4-2.0)
[2025-05-19 15:39] LABS: BASE EXCESS VENOUS 13.5 (-2.0-3.0); BICARBONATE,VENOUS 48.0 mEq/L (22-29); PCO2 VENOUS 129.0 mmHG (41-51); PH,VENOUS 7.18 (7.32-7.43); PO2 VENOUS 35.0 mmHG (35-45)
[2025-05-19] MEDS: Levofloxacin/Dextrose 5%-Water 750 MG in Premix Bag 1 BAG IV ONE (17:36)
[2025-05-19 18:35] LABS: PH,VENOUS 7.18 (7.32-7.43)
[2025-05-19 18:36] LABS: BASE EXCESS VENOUS 15.7 (-2.0-3.0); BICARBONATE,VENOUS 51.0 mEq/L (22-29); PCO2 VENOUS 136.0 mmHG (41-51); PO2 VENOUS 62.0 mmHG (35-45)
[2025-05-19 18:48] VITALS: BP 123/60; PULSE 102
[2025-05-19] MEDS: Albuterol 0.083% 2.5 MG/3 ML Neb Soln NEB ONE ×2 (19:14→20:02)
[2025-05-19] MEDS: Magnesium Sulfate 2 GM/50 mL 2 GM in Premix Bag 1 BAG IV ONE (19:46)
[2025-05-19] MEDS: Furosemide 20 MG/2 ML VIAL IVPUSH ONE (21:04)
== END 2025-05-19 21:16 ==
LOC: MW.ED 13:39
DX: J96.02 Acute respiratory failure with hypercapnia (principal); J44.9 Chronic obstructive pulmonary disease, unspecified; I11.0 Hypertensive heart disease with heart failure; I50.9 Heart failure, unspecified; E78.00 Pure hypercholesterolemia, unspecified; E66.9 Obesity, unspecified; Z87.891 Personal history of nicotine dependence; Z75.3 Unavailability and inaccessibility of health-care facilities; Z88.1 Allergy status to other antibiotic agents; Z88.5 Allergy status to narcotic agent; Z79.899 Other long term (current) drug therapy; Z79.01 Long term (current) use of anticoagulants; Z68.41 Body mass index [BMI] 40.0-44.9, adult
CPT/HCPCS: 36415; 71045; 80053; 82140; 82803; 83605; 83735; 84484; 85025; 85610; 85730; 87040; 87428; 93005; 94640; 94660; 96365; 96367; 96375; 99285; J1956; J2919; J3475; J7613; J7620; A9270-GY